=== PATIENT | female | born 1980 | race Caucasian/White ===

== ENCOUNTER 2018-01-30 17:59 | Emergency (ER) | payer MEDICAID, SELFPAY ==
[2018-01-30] VITALS (10 sets, daily range): BP systolic 116–130; BP diastolic 71–77; PULSE 86–100; RESP 14–24; TEMP 36.8–37; O2SAT 94–98
--- NOTE | 2018-01-30 18:25 | DI.RPTCT_ITS ---
SYMPTOMS/DIAGNOSIS: CHEST PAIN, SHORTNESS OF BREATH, EPIGASTRIC PAIN PA AND LATERAL CHEST: The heart is normal in size. The lungs are clear. The mediastinal structures and pleura appear intact. CONCLUSION: Normal chest. CT ANGIOGRAPHY, CHEST: CT angiography was performed with multi slice acquisition and multi planar and 3D reconstruction. CT angiography of the chest was performed with intravenous infusions of 100 cc of Omnipaque 350. There is no evidence of pulmonary embolic disease. No thoracic aortic aneurysm or dissection noted. Major branch vessels appear intact. The tracheobronchial tree appears intact. The lungs are clear. No pleural effusion. No mediastinal or hilar adenopathy. CONCLUSION: Negative CTA of the chest. ABDOMINAL AND PELVIC CT: CT examination of the abdomen and pelvis was performed following the CT angiogram of the chest. The study is compared with the previous abdominal CT of 12/30/2017. The patient has a history of pancreatic pseudocyst. This has decreased in size in comparison with the previous examination but still occupies a large portion of the portal region and measures up to about 12 cm in diameter on transaxial imaging. The liver is unremarkable in appearance. The gallbladder is CT normal and no biliary dilatation is seen. No new abnormality of the pancreas seen. Marked pancreatic body and tail calcification noted. The spleen is unremarkable. Kidneys and adrenals appear normal. Abdominal aorta is of normal diameter and no major vascular abnormality is seen. No significant abdominal wall hernia is seen. No significant abdominal or pelvic adenopathy seen. The appendix appears normal. No evidence of diverticulitis or bowel obstruction. There appears to be some degree of constipation. There is an IUD in place in the uterus. Ovaries are grossly unremarkable in appearance by CT criteria. No free fluid seen. CONCLUSION: No evidence of acute intraabdominal process. Presumed pancreatic pseudocyst again noted, slightly smaller in comparison with previous CT of . I would also note that prominent decreased hepatic attenuation consistent with hepatic steatosis noted on the previous examination is no longer present.
[2018-01-30] MEDS: Normal Saline 1,000 ML 1000 ML IV (18:57)
[2018-01-30 19:03] LABS: Lipase 652 U/L (73-393)
[2018-01-30 19:11] LABS: ALT 39 U/L (12-78); AST 34 U/L (15-37); Albumin 3.8 g/dL (3.4-5.0); Alkaline Phosphatase 146 U/L (46-116); Anion Gap 11.5 mmol/L (3-11); BUN 4 mg/dL (7-18); Bilirubin, Total 0.2 mg/dL (0.2-1.0); CO2 24.5 mmol/L (21.0-32.0); CREATININE 0.51 mg/dL (0.55-1.02); Calcium 8.7 mg/dL (8.5-10.1); Chloride 107 mmol/L (98-107); Glucose 96 mg/dL (70-100); Magnesium 1.7 mg/dL (1.8-2.4); Potassium 4.3 mmol/L (3.5-5.1); Sodium 143 mmol/L (136-145); Total Protein 7.4 g/dL (6.4-8.2)
[2018-01-30 19:21] LABS: Troponin I < 0.02 ng/mL (0.00-0.06)
[2018-01-30 19:24] LABS: Abs Immature Grans 0.07 k/cumm (0.0-0.09); Absolute Basophil Count 0.03 k/cumm (0.0-0.2); Absolute Eosinophil Count 0.12 k/cumm (0.0-0.7); Absolute Lymphocyte Count 2.57 k/cumm (1.2-3.4); Absolute Monocyte Count 0.69 k/cumm (0.11-0.7); Absolute Neutrophil Count 3.36 k/cumm (1.2-6.7); Basophils % 0.4; Eosinophils % 1.8; HCT 42.1 % (36.0-46.0); HGB 14.8 g/dL (12.0-15.5); Lymphocytes % 37.6; Mean Corp. HGB Concentration 35.2 g/dL (32.0-36.0); Mean Corpuscular Hemoglobin 33.2 pg (27.0-33.0); Mean Corpuscular Volume 94.4 fL (80-95); Mean Platelet Volume 10.9 fL (8.0-11.0); Monocytes % 10.1; Neutrophils % 49.1; Platelet Count 233 x1000/uL (130-400); RBC 4.46 m/cumm (4.00-5.20); RBC Distribution Width 13.3 % (11.7-14.6); White Blood Cell Count 6.84 k/cumm (4.4-10.8)
--- NOTE | 2018-01-30 19:36 | DI.VRAD_ITS ---
EXAM: XR Chest, 2 Views EXAM DATE/TIME: 01/30/2018 6:27 PM CLINICAL HISTORY: 37 years old, female; Signs and symptoms; Other: Chest pain TECHNIQUE: XR of the chest, 2 views. COMPARISON: CR - CHEST 2 VIEWS PA,LAT 2017-12-30 07:26 FINDINGS: Lungs: Unremarkable. No consolidation. Pleural space: Unremarkable. No pleural effusion. No pneumothorax. Heart/Mediastinum: Unremarkable. No cardiomegaly. Bones/joints: There is mild levoscoliotic curvature is present with the apex at T8. Minimal anterior marginal osteophytic spurring is present throughout the thoracic spine. IMPRESSION: 1. No acute pulmonary disease or acute thoracic findings are detected. 2. No significant interval change. Dictated and Authenticated by: Ga García MD. Ordering:MELISSA GAINES MD
[2018-01-30 19:38] LABS: D-Dimer 2217 ng/mlFEU (<500)
[2018-01-30] MEDS: Normal Saline Flush 10 ML SYR IVP (20:03)
[2018-01-30] MEDS: LORazepam 2 MG/ML VIAL 1 MG IVP (20:03)
[2018-01-30] MEDS: Omnipaque 350 MG/ML 100 ML BTL IV (20:11)
[2018-01-30 20:14] LABS: ETHANOL BLOOD 263.3 mg/dL (<3)
--- NOTE | 2018-01-30 21:47 | DI.VRAD_ITS ---
EXAM: CT Angiography Chest With Intravenous Contrast EXAM DATE/TIME: 01/30/2018 7:48 PM CLINICAL HISTORY: 37 years old, female; Signs and symptoms; Other: Pain, shortness of breath, epigastric pain TECHNIQUE: Axial computed tomographic angiography images of the chest with intravenous contrast using CT angiography protocol. All CT scans at this facility use at least one of these dose optimization techniques: automated exposure control; mA and/or kV adjustment per patient size (includes targeted exams where dose is matched to clinical indication); or iterative reconstruction. Coronal and sagittal reformatted images were created and reviewed. MIP reconstructed images were created and reviewed. CONTRAST: 100 ml of omnipaque 350 administered intravenously. COMPARISON: CT - ABD PELVIS WITH CONTRAST 2017-12-30 07:10 FINDINGS: Pulmonary arteries: Normal. No pulmonary emboli. Aorta: Normal. No aortic aneurysm. No aortic dissection. Lungs: Normal. No consolidation. No masses. Pleural space: Normal. No pneumothorax. No pleural effusion. Heart: Normal. No cardiomegaly. No pericardial effusion. Bones/joints: Unremarkable. No acute fracture. Soft tissues: Unremarkable. Lymph nodes: Unremarkable. No enlarged lymph nodes. IMPRESSION: 1. No identification of PE. 2. No acute pulmonary disease. EXAM: CT Abdomen and Pelvis With Intravenous Contrast EXAM DATE/TIME: 01/30/2018 7:48 PM CLINICAL HISTORY: 37 years old, female; Signs and symptoms; Other: Pain, shortness of breath, epigastric pain TECHNIQUE: Axial computed tomography images of the abdomen and pelvis with intravenous contrast. All CT scans at this facility use at least one of these dose optimization techniques: automated exposure control; mA and/or kV adjustment per patient size (includes targeted exams where dose is matched to clinical indication); or iterative reconstruction. Coronal and sagittal reformatted images were created and reviewed. CONTRAST: 100 ml of omnipaque 350 administered intravenously. COMPARISON: CT - ABD PELVIS WITH CONTRAST 2017-12-30 07:10 FINDINGS: Lower thorax: No acute findings. ABDOMEN: Liver: Normal. No mass. Gallbladder and bile ducts: Normal. No calcified stones. No ductal dilation. Pancreas: There is diffuse pancreatic atrophy with multiple calcifications again demonstrated throughout, thought indicative of chronic pancreatitis. An approximately 8.3 x 14.9 x 8.4 cm suspected pseudocyst is seen within the head region of the pancreas. This has slightly decreased in size. Spleen: Normal. No splenomegaly. Adrenals: Normal. No mass. Kidneys and ureters: Normal. No hydronephrosis. Stomach and bowel: Normal. No obstruction. No mucosal thickening. Appendix: No evidence of appendicitis. PELVIS: Bladder: Unremarkable as visualized. Reproductive: An IUD is again noted appearing to reside in satisfactory position within the uterine canal. The uterus is deviated to the left of midline in position; a normal variant finding. ABDOMEN and PELVIS: Intraperitoneal space: Normal. No free air. No significant fluid collection. Bones/joints: No acute fracture. No dislocation. Soft tissues: Unremarkable. Vasculature: Normal. No abdominal aortic aneurysm. Lymph nodes: Normal. No enlarged lymph nodes. IMPRESSION: 1. No acute findings are detected. 2. The suspected large pancreatic pseudocyst in the head region has slightly decreased in size. 3. No other significant interval change is seen to have occurred. Dictated and Authenticated by: Ga García MD. Ordering:MELISSA GAINES MD
[2018-01-30] MEDS: Ondansetron O.D.T. 4 MG TABEF PO ×2 (22:28→23:07)
--- NOTE | 2018-01-30 22:46 | ED.GENADUL_ITS ---
Disposition Clinical Impression: Pancreatitis, alcoholic, acute Disposition: HOME Condition: Improving Instructions: Pancreatitis (ED), Clear Liquid Diet (ED) Additional Instructions: Return immediately to the emergency department for new or worsening symptoms including severe nausea vomiting, severe pain or discomfort, severe symptoms of alcohol withdrawal, or inability to tolerate any p.o. intake. Otherwise please use clear liquid diet for the next 3 days and take medication as prescribed for symptomatic control. It is very important that you abstain from alcohol as this will worsen your condition. Prescriptions: ChlordiazePOXIDE [Librium] 50 mg PO Q8H PRN #12 cap PRN Reason: Ondansetron ODT [Zofran Odt] 4 mg PO Q8H PRN #12 tabef PRN Reason: Nausea Referrals: NONE,NONE [Primary Care Provider] - (Care management will help arrange a follow -up appointment in the next 2-3 days for reassessment.) Medical Decision Making - Lab Data Laboratory Tests 01/30/18 01/30/18 01/30/18 18:44 18:44 18:44 WBC 6.84 RBC 4.46 Hgb 14.8 Hct 42.1 MCV 94.4 MCH 33.2 H MCHC 35.2 RDW 13.3 Plt Count 233 MPV 10.9 Immature Gran % 1.0 Neutrophils % 49.1 Lymphocytes % 37.6 Monocytes % 10.1 Eosinophils % 1.8 Basophils % 0.4 Absolute Neutrophils 3.36 Absolute Lymphocytes 2.57 Absolute Monocytes 0.69 Absolute Eosinophils 0.12 Absolute Basophils 0.03 D-Dimer 2217 H Sodium 143 Potassium 4.3 Chloride 107 Carbon Dioxide 24.5 Anion Gap 11.5 H BUN 4 L Creatinine 0.51 L Estimated GFR/1.73 m2 >= 60.00 Glucose 96 Calcium 8.7 Magnesium 1.7 L Total Bilirubin 0.2 AST 34 ALT 39 Alkaline Phosphatase 146 H Troponin I < 0.02 Total Protein 7.4 Albumin 3.8 Lipase Ethyl Alcohol 01/30/18 01/30/18 18:44 18:44 WBC RBC Hgb Hct MCV MCH MCHC RDW Plt Count MPV Immature Gran % Neutrophils % Lymphocytes % Monocytes % Eosinophils % Basophils % Absolute Neutrophils Absolute Lymphocytes Absolute Monocytes Absolute Eosinophils Absolute Basophils D-Dimer Sodium Potassium Chloride Carbon Dioxide Anion Gap BUN Creatinine Estimated GFR/1.73 m2 Glucose Calcium Magnesium Total Bilirubin AST ALT Alkaline Phosphatase Troponin I Total Protein Albumin Lipase 652 H Ethyl Alcohol 263.3 Results reviewed for labs ordered during visit: Yes - Radiology Data Radiology results: report reviewed, image reviewed - Medical Decision Making Patient presenting to the emergency department for sudden onset chest pain. Patient does state history of DVTs in the past. Physical exam shows significant epigastric and left upper quadrant tenderness so I highly suspect more GI etiology but plan to draw labs including troponin, CBC CMP, lipase, and d-dimer. Patient does state drinking alcohol so alcohol level was added and given IV fluids pending results. After review of results that show a mild increase of lipase and elevated d- dimer. Patient was reassessed. Patient still states some shortness of breath and so plan to do CT PE protocol and abdomen and pelvis imaging. Pending imaging patient started to have severe anxiety about what may be going on with her health. After talking to her she was agreeable to receiving some Ativan in finishing the evaluation. After review of CT imaging that shows no acute findings and does show a slight reduction in size of patient's pseudocyst that she has located on the head of her pancreas patient reassessed. Patient states that she significantly feels better and has decrease in pain. EtOH result did come back and did show that patient was acutely intoxicated. Did discuss with patient pancreatitis caused by alcoholism which patient states that she drinks multiple beers daily. Patient states that she would prefer to go home but does have slight concern about stopping drinking alcohol. Did inform patient that we could attempt a fluid challenge after giving her some Zofran and as far as cessation of alcohol that I be willing to prescribe a limited prescription of Librium to help control any withdrawal symptoms that she might have. Patient was agreeable to this. Patient was able to tolerate multiple glasses of ice water and stated that she felt fine with no significant increase or worsening of pain or nausea. I feel that this is reassuring. Patient states that she does not have a primary care provider and I feel that it is very important that patient follows up with primary care in the next 2-3 days for reassessment and further refill of Librium if required for further withdrawals or outpatient detox. Patient was agreeable to seeing primary care provider in the next 2-3 days and states clear understanding to return for worsening symptoms. After discussion of diagnosis and plan of care with patient patient agreed and stated no further needs, questions, or concerns at this time. History of Present Illness - General Chief complaint: Chest Pain Stated complaint: VILMA Time Seen by Provider: 01/30/18 18:09 Source: patient, RN notes reviewed Mode of arrival: ambulatory Limitations: no limitations - History of Present Illness Initial comments: Patient reports 2 hours ago she began having significant and severe chest pain. Patient states this is mostly in the epigastrium and substernal. Patient does state that she had a couple beers prior to this occurring and had eaten just prior to that. Patient states that this started while she was at rest just watching TV. Patient denies any injury or trauma. Patient does state history of DVTs but denies any PE. Patient also does state spontaneous pneumothorax in the past. Onset/Timin -: hour(s) Location: chest Radiation: non-radiation Severity scale (1-10): 8 Quality: sharp Consistency: constant Improves with: none Worsens with: none Associated Symptoms: denies other symptoms Treatments Prior to Arrival: none - Related Data ChlordiazePOXIDE [Librium] 50 mg PO Q8H PRN #12 cap 01/30/18 Melatonin 1 tab PO PRN PRN 01/30/18 Ondansetron ODT [Zofran Odt] 4 mg PO Q8H PRN #12 tabef 01/30/18 Allergies Allergy/AdvReac Type Severity Reaction Status Date / Time amoxicillin Allergy Unverified 01/30/18 18:15 codeine Allergy Unverified 01/30/18 18:15 Review of Systems Constitutional: no symptoms reported. denies: chills, fever Respiratory: shortness of breath. denies: cough, stridor, wheezing Cardiovascular: chest pain. denies: palpitations, edema, syncope Gastrointestinal: abdominal pain, nausea. denies: vomiting, diarrhea, constipation, hematemesis Genitourinary: denies: dysuria Musculoskeletal: denies: back pain Neurological: denies: headache Past Medical History - Past Medical History Medical history: DVT Migraine headaches, pancreatitis, spontaneous pneumothorax Surgical history: other (LEEP, chest tube) LMP comments: other (Irregular, months ago. Patient has IUD) - Social History Smoking status: current everyday smoker Alcohol use: heavy, recent Drug use: none Living Situation: lives with family General Exam - General Limitations: no limitations General appearance: alert, in distress (Showing signs of obvious discomfort holding epigastrium) - Head Head exam: Present: atraumatic - ENT ENT exam: Present: normal orophraynx, mucous membranes moist - Respiratory Respiratory exam: Present: normal lung sounds bilaterally. Absent: respiratory distress, wheezes, rales, rhonchi, stridor, chest wall tenderness, decreased breath sounds - Cardiovascular Cardiovascular Exam: Present: regular rate, normal rhythm, normal heart sounds. Absent: systolic murmur, diastolic murmur, rubs, gallop, clicks - GI/Abdominal GI/Abdominal exam: Present: soft, tenderness (Significant tenderness to epigastrium and left upper quadrant), guarding (Voluntary with palpation of epigastrium), normal bowel sounds. Absent: rebound, rigid, organomegaly, mass, bruit, pulsatile mass, hernia - Extremities Exam Extremities exam: Present: normal capillary refill. Absent: pedal edema, calf tenderness - Back Exam Back exam: Absent: CVA tenderness (R), CVA tenderness (L) - Neurological Exam Neurological exam: Present: alert, altered, oriented X3 - Psychiatric Psychiatric exam: Present: agitated, anxious - Skin Skin exam: Present: warm, dry, normal color. Absent: cyanosis, diaphoretic, pallor, mottled Course Vital Signs - 24 hr 01/30/18 01/30/18 01/30/18 18:00 18:05 18:10 Temperature Pulse 91 H Respiratory Rate Blood Pressure 124/72 Pulse Oximetry 97 96 95 01/30/18 01/30/18 01/30/18 18:11 18:16 18:20 Temperature 37 C Pulse 92 H 95 H Respiratory 16 20 14 Rate Blood Pressure 124/72 116/71 Pulse Oximetry 98 97 96 01/30/18 01/30/18 01/30/18 18:34 18:40 19:20 Temperature Pulse Respiratory 24 Rate Blood Pressure Pulse Oximetry 96 94 L
[2018-01-30] MEDS: chlordiazePOXIDE 25 MG CAP 50 MG PO (23:07)
--- NOTE | 2018-01-31 08:03 | PDOC.ERCMPRO ---
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 Steinberg bromination equipment operator) f/u in 2-3 days for alcohol induced mild pancreatitis. Referral faxed to [facility] this am. Of note, this patient was referred to CM on 01/01 and CM had reached out to her then with no response back.
--- NOTE | 2018-01-31 08:04 | CMPROGNOTE_ITS ---
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 Steinberg production line operator) f/u in 2-3 days for alcohol induced mild pancreatitis. Referral faxed to [facility] this am. Of note, this patient was referred to CM on 01/01 and CM had reached out to her then with no response back.
== END 2018-01-30 23:15 | disposition home or self-care (01) ==
PROVIDERS: Nurse Practitioner Family; Emergency Provider Physician Assistant
DX: K85.20 Alcohol induced acute pancreatitis without necrosis or infection (principal)
CPT/HCPCS: 36415; 71275; 74177; 80053; 83690; 96360; 99285; 71046; 80320; 83735; 84484; 85025; 85379; 99284; J2060; J3490

== ENCOUNTER 2018-04-20 22:47 | Emergency (ER) | payer MEDICAID, SELFPAY ==
[2018-04-20 22:50] VITALS: BP 117/75; PULSE 84; RESP 16; TEMP 36.5; O2SAT 98
--- NOTE | 2018-04-20 23:07 | W.ED.GENAD ---
Discharge Plan Disposition Patient Disposition: HOME Condition: Good Discharge Details Chief Complaint: Burn Clinical Impression: First degree burn of right hand Primary Care Provider: NONE,NONE ED Provider: Karri Monteiro Meds and New Rx's Prescriptions: Continue melatonin 3 MG tablet 1 tab PO PRN PRNRF: 0 Discharge Instructions Instructions: Superficial Burn (ED) Additional Instructions: May use Motrin or Tylenol for pain. Burn should get better over a few days. There is no blistering/charred skin so superficial in nature. Return to ED if problems. Discharge Data Discharge Date/Time-TO BE ENTERED AT DEPARTURE: 04/20/18 23:24 Medical Decision Making I do not appreciate any charring, whiteness, blistering of the finger pad. It does not appear any more erythematous than the rest of her hand or pads. She complains of pain and burning here after removing pizza from the oven. This would only be a superficial burn as there is no blistering and burn occurred 1 hour ago. She is given a shot of Toradol for pain. She is instructed to use Motrin or Tylenol for pain. No specific treatment for superficial burn otherwise. Should heal without significant sequela. Return to ED for any problems. HPI General Mode of arrival: ambulatory. Date/Time Provider Initiated Documentation: 04/20/18 23:01. Limitations to Documentation: no limitations. Information obtained by: patient. HPI Narrative: Patient presents to ED stating she has a burn on her right ring finger. She apparently was trying to take a pizza out of the oven. She reports pain on the pad. She denies other injury. She presents for evaluation. Related Data Home Medications Medication Instructions Recorded Confirmed melatonin 1 tab PO PRN PRN 01/30/18 04/20/18 Allergies Allergy/AdvReac Type Severity Reaction Status Date / Time amoxicillin Allergy Unverified 01/30/18 18:15 codeine Allergy Unverified 01/30/18 18:15 General Stated Complaint: Burn JAMEEL: 4 Review of Systems Constitutional Denies weakness Musculoskeletal Denies numbness and Denies tingling Integumentary/Breasts Reports skin pain and Denies wounds Neurologic Denies numbness, Denies tingling and Denies weakness [facility] Medical History DVT (deep venous thrombosis) (Inactive) Pancreatitis (Inactive) Social History Smoking/Tobacco Use Status: Current every day Surgical History H/O chest tube placement (Inactive) Exam Const General: cooperative and comfortable Orientation: alert and oriented x3 Skin Other: Pain with palpation of the right finger pad but no blistering or significant erythema present. No charring or insensate regions Neuro General: alert, oriented x3, no focal motor deficits and CN's II-XI intact bilaterally Extrem Right upper extremity: hand Details: normal to inspection, normal capillary refill, neuromotor exam normal, neurosensory exam normal and normal ROM of fingers Course Vital Signs Temperature 97.7 F 04/20/18 22:50 Pulse 84 04/20/18 22:50 Respiratory Rate 16 04/20/18 22:50 Blood Pressure 117/75 04/20/18 22:50 Pulse Oximetry 98 04/20/18 22:50 Temperature 97.7 F 04/20/18 22:50 Temperature Source Skin 04/20/18 22:50 Pulse 84 04/20/18 22:50 Respiratory Rate 16 04/20/18 22:50 Respiratory Effort 04/20/18 22:53 Blood Pressure 117/75 04/20/18 22:50 Pulse Oximetry 98 04/20/18 22:50 Oxygen Delivery Method Room Air 04/20/18 22:50 Oxygen Flow Rate 0 04/20/18 22:50 Pain Level 2 04/20/18 22:57
--- NOTE | 2018-04-20 23:12 | ED.GENADUL_ITS ---
Discharge Plan Disposition Patient Disposition: HOME Condition: Good Discharge Details Chief Complaint: Burn Clinical Impression: First degree burn of right hand Primary Care Provider: NONE,NONE ED Provider: Karri Monteiro Meds and New Rx's Prescriptions: Continue melatonin 3 MG tablet 1 tab PO PRN PRNRF: 0 Discharge Instructions Instructions: Superficial Burn (ED) Additional Instructions: May use Motrin or Tylenol for pain. Burn should get better over a few days. There is no blistering/charred skin so superficial in nature. Return to ED if problems. Discharge Data Discharge Date/Time-TO BE ENTERED AT DEPARTURE: 04/20/18 23:24 Medical Decision Making I do not appreciate any charring, whiteness, blistering of the finger pad. It does not appear any more erythematous than the rest of her hand or pads. She complains of pain and burning here after removing pizza from the oven. This would only be a superficial burn as there is no blistering and burn occurred 1 hour ago. She is given a shot of Toradol for pain. She is instructed to use Motrin or Tylenol for pain. No specific treatment for superficial burn otherwise. Should heal without significant sequela. Return to ED for any problems. HPI General Mode of arrival: ambulatory . Date/Time Provider Initiated Documentation: 04/20/18 23:01 . Limitations to Documentation: no limitations . Information obtained by: patient . HPI Narrative: Patient presents to ED stating she has a burn on her right ring finger. She apparently was trying to take a pizza out of the oven. She reports pain on the pad. She denies other injury. She presents for evaluation. Related Data Home Medications Medication Instructions Recorded Confirmed melatonin 1 tab PO PRN PRN 01/30/18 04/20/18 Allergies Allergy/AdvReac Type Severity Reaction Status Date / Time amoxicillin Allergy Unverified 01/30/18 18:15 codeine Allergy Unverified 01/30/18 18:15 General Stated Complaint: Burn JAMEEL: 4 Review of Systems Constitutional Denies weakness Musculoskeletal Denies numbness and Denies tingling Integumentary/Breasts Reports skin pain and Denies wounds Neurologic Denies numbness, Denies tingling and Denies weakness [facility] Medical History DVT (deep venous thrombosis) (Inactive) Pancreatitis (Inactive) Social History Smoking/Tobacco Use Status: Current every day Surgical History H/O chest tube placement (Inactive) Exam Const General: cooperative and comfortable Orientation: alert and oriented x3 Skin Other: Pain with palpation of the right finger pad but no blistering or significant erythema present. No charring or insensate regions Neuro General: alert, oriented x3, no focal motor deficits and CN's II-XI intact bilaterally Extrem Right upper extremity: hand Details: normal to inspection, normal capillary refill, neuromotor exam normal, neurosensory exam normal and normal ROM of fingers Course Vital Signs Temperature 97.7 F 04/20/18 22:50 Pulse 84 04/20/18 22:50 Respiratory Rate 16 04/20/18 22:50 Blood Pressure 117/75 04/20/18 22:50 Pulse Oximetry 98 04/20/18 22:50 Temperature 97.7 F 04/20/18 22:50 Temperature Source Skin 04/20/18 22:50 Pulse 84 04/20/18 22:50 Respiratory Rate 16 04/20/18 22:50 Respiratory Effort 04/20/18 22:53 Blood Pressure 117/75 04/20/18 22:50 Pulse Oximetry 98 04/20/18 22:50 Oxygen Delivery Method Room Air 04/20/18 22:50 Oxygen Flow Rate 0 04/20/18 22:50 Pain Level 2 04/20/18 22:57
[2018-04-20] MEDS: Ketorolac 30 MG/ML VIAL IM (23:18)
[2018-04-20 23:26] VITALS: BP 117/75; PULSE 84; RESP 16; TEMP 36.5; O2SAT 98
== END 2018-04-20 23:24 | disposition home or self-care (01) ==
LOC: ER 23:43
PROVIDERS: Emergency Provider Emergency Medicine
DX: T23.121A Burn of first degree of single right finger (nail) except thumb, initial encounter (principal); T31.0 Burns involving less than 10% of body surface; X10.1XXA Contact with hot food, initial encounter
CPT/HCPCS: 96372; 99284; J1885

== ENCOUNTER 2018-08-24 14:43 | Outpatient (REF) | payer MEDICAID, SELFPAY | END 2018-08-24 15:03 | LOC: LBN 14:43 | PROVIDERS: Visit Provider Otolaryngology | DX: L02.01 Cutaneous abscess of face (principal) | CPT/HCPCS: 87070; 87205 ==

== ENCOUNTER 2018-09-09 12:48 | Emergency (ER) | payer MEDICAID, SELFPAY ==
[2018-09-09] VITALS (20 sets, daily range): BP systolic 116–155; BP diastolic 80–97; PULSE 83–115; RESP 12–23; TEMP 36.7–37.2; O2SAT 98–100
--- NOTE | 2018-09-09 12:44 | W.ED.GENAD ---
Discharge Plan Disposition Patient Disposition: HOME Condition: Stable Discharge Details Chief Complaint: Seizure Clinical Impression: Alcohol withdrawal, Contusion of hip, left Reason For Visit: VILMA Primary Care Provider: None,None ED Provider: Koby Walter Home Meds and New Rx's Prescriptions: New lorazepam 2 mg tablet See Rx Instructions .ROUTE .COMPLEX Qty: 21 RF: 0 No Action melatonin 3 MG tablet 1 tab PO PRN PRNRF: 0 Discharge Instructions Instructions: Lorazepam (By mouth), Alcohol Withdrawal (ED) Additional Instructions: if you relapse and start drinking do not take the lorazepam call the treatment centers for help with your alcohol addiction do not drive or swim/bathe for 6 months without a seizure or until your primary care provider clears you. You should follow up with them within 1-2 weeks Medical Decision Making 38 yo female who denies chronic medical problems, does have history of drinking heavily at least four 24oz beers a day and last drink 4 days ago. Today she felt weak and then reportedly collapsed and had shaking activity lasting a few minutes. She is currently HD stable with mild tachycardia in the 110's, does have tremors of the extremities, suspect alcohol withdrawal, will tx as such and also obtain head imaging given the seizure. She states she fell a few days ago and has lefthip pain, has pain over the lateral left hip with full rom of the hip, doubt fx but will xray to eval for this. pt's hr now the 90's and no longer having tremors. HAs mild pain in the hip. Awaiting imaging and labs imaging shows no acute findings, albs show hypoK and mag which are being repleted and also anion gap of 18 likely from either alcoholic ketosis vs seizure. Will recheck after IVF given. She remains HD stable with no recurrent seizures anion gap and hypoK resolved. She is hd stable. She would like to come off alcohol so will prescribe outaptient oral benzos until she can find treatment for her alcohol addiction. Return precautions given. Differential Diagnosis alcohol withdrawal, electrolyte abnormality Imaging Data Radiologic Study: Attestation: I personally reviewed and interpreted this imaging study as follows: Imaging: X-Ray Radiologist's impression: no acute findings Radiologic Study #2: Attestation: I personally reviewed and interpreted this imaging study as follows: Imaging: CT Scan Radiologist's impression: no acute findings Lab Data Lab results reviewed: Yes I reviewed the patient's lab results. ECG Data Attestation: I personally reviewed and interpreted this ECG (s) as follows: Prior ECG tracings: available for review Interpretation: sinus rhythm, rate of 95, pr 156, qtc 455, no acute st t wave ischmemic changes, does have artifact from her shaking/tremors HPI General Mode of arrival: EMS. Date/Time Provider Initiated Documentation: 09/09/18 12:58. Limitations to Documentation: no limitations. Information obtained by: patient. History of Present Illness 38 year old F presents to the emergency department with the chief complaint of seizure, Patient reports no radiation. Patient started experiencing this hour(s) (1) and it has been constant. No relieving factors improve symptom(s), No exacerbating factors reported . Patient notes other (left hip pain, shaky). Patient did receive the following treatments prior to arrival, none Related Data Home Medications Medication Instructions Recorded Confirmed melatonin 1 tab PO PRN PRN 01/30/18 09/09/18 lorazepam See Rx Instructions .ROUTE 09/09/18 .COMPLEX #21 tab Previous Rx's Medication Instructions Recorded lorazepam See Rx Instructions .ROUTE 09/09/18 .COMPLEX #21 tab Allergies Allergy/AdvReac Type Severity Reaction Status Date / Time amoxicillin Allergy Unverified 09/09/18 14:34 codeine Allergy Unverified 09/09/18 14:34 General JAMEEL: 4 Review of Systems Review of Systems All systems reviewed & are unremarkable except as noted in HPI and below Constitutional Denies chills and Denies fever(s) Cardiovascular Denies chest pain and Denies dyspnea Respiratory Denies cough and Denies dyspnea Gastrointestinal Denies abdominal pain Genitourinary Denies dysuria Musculoskeletal Denies joint swelling [facility] Medical History DVT (deep venous thrombosis) (Inactive) Pancreatitis (Inactive) Surgical History H/O chest tube placement (Inactive) Social History Smoking/Tobacco Use Status: Current every day Tobacco Type: cigarettes Tobacco: How many years used: 21 Alcohol Intake: current Alcohol Intake frequency: 3 or more drinks per day Alcohol type: beer Drug use: Daily Substance use type: marijuana Do you feel safe at home: Yes Do you feel safe in your relationship?: Yes Exam Const General: anxious Orientation: alert HENMT Head: normal to inspection Ears: external ears normal General nose exam: external nose normal Mouth: moist mucous membranes Eyes General: appearance normal, both eyes and all related structures Neck Neck: normal visual inspection Resp Effort & Inspection: normal respiratory effort and able to speak in complete sentences Cardio Rate: tachycardic Skin General skin exam: no rashes or lesions noted Neuro General: alert and oriented x3 Extrem General: normal to inspection Psych Mental Status: mental status grossly normal
[2018-09-09 13:03] LABS: Abs Immature Grans 0.02 k/cumm (0.0-0.09); Absolute Basophil Count 0.01 k/cumm (0.0-0.2); Absolute Eosinophil Count 0.01 k/cumm (0.0-0.7); Absolute Lymphocyte Count 0.73 k/cumm (1.2-3.4); Absolute Monocyte Count 0.49 k/cumm (0.11-0.7); Absolute Neutrophil Count 3.89 k/cumm (1.2-6.7); Basophils % 0.2; Eosinophils % 0.2; HCT 41.5 % (36.0-46.0); HGB 14.7 g/dL (12.0-15.5); Immature Grans % 0.4; Lymphocytes % 14.2; Mean Corp. HGB Concentration 35.4 g/dL (32.0-36.0); Mean Corpuscular Volume 90.4 fL (80-95); Mean Platelet Volume 10.4 fL (8.0-11.0); Monocytes % 9.5; Neutrophils % 75.5; Platelet Count 109 x1000/uL (130-400); RBC 4.59 m/cumm (4.00-5.20); White Blood Cell Count 5.15 k/cumm (4.4-10.8)
--- NOTE | 2018-09-09 13:04 | DI.RAD_ITS ---
SYMPTOM/DIAGNOSIS: PAIN, S/P FALL PELVIS AND LEFT HIP: There is overlying artifact from the patient's clothing. No fracture or dislocation is seen. An IUD is incidentally noted. IMPRESSION: Negative pelvis.
--- NOTE | 2018-09-09 13:04 | DI.CT_ITS ---
SYMPTOM/DIAGNOSIS: SEIZURE, FELL, HIT HEAD NONCONTRAST HEAD CT: Comparison is made with 06/15/17. No intracranial hemorrhage or skull fracture is seen. The ventricles are normal in size. There is minimal ethmoid sinus mucosal thickening. The mastoid air cells appear clear. IMPRESSION: Negative head CT.
--- NOTE | 2018-09-09 13:11 | ED.GENADUL_ITS ---
Discharge Plan Disposition Patient Disposition: HOME Condition: Stable Discharge Details Chief Complaint: Seizure Clinical Impression: Alcohol withdrawal, Contusion of hip, left Reason For Visit: VILMA Primary Care Provider: None,None ED Provider: Koby Walter Home Meds and New Rx's Prescriptions: New lorazepam 2 mg tablet See Rx Instructions .ROUTE .COMPLEX Qty: 21 RF: 0 No Action melatonin 3 MG tablet 1 tab PO PRN PRNRF: 0 Discharge Instructions Instructions: Lorazepam (By mouth), Alcohol Withdrawal (ED) Additional Instructions: if you relapse and start drinking do not take the lorazepam call the treatment centers for help with your alcohol addiction do not drive or swim/bathe for 6 months without a seizure or until your primary care provider clears you. You should follow up with them within 1-2 weeks Medical Decision Making 38 yo female who denies chronic medical problems, does have history of drinking heavily at least four 24oz beers a day and last drink 4 days ago. Today she felt weak and then reportedly collapsed and had shaking activity lasting a few minutes. She is currently HD stable with mild tachycardia in the 110's, does have tremors of the extremities, suspect alcohol withdrawal, will tx as such and also obtain head imaging given the seizure. She states she fell a few days ago and has lefthip pain, has pain over the lateral left hip with full rom of the hip, doubt fx but will xray to eval for this. pt's hr now the 90's and no longer having tremors. HAs mild pain in the hip. Awaiting imaging and labs imaging shows no acute findings, albs show hypoK and mag which are being repleted and also anion gap of 18 likely from either alcoholic ketosis vs seizure. Will recheck after IVF given. She remains HD stable with no recurrent seizures anion gap and hypoK resolved. She is hd stable. She would like to come off alcohol so will prescribe outaptient oral benzos until she can find treatment for her alcohol addiction. Return precautions given. Differential Diagnosis alcohol withdrawal, electrolyte abnormality Imaging Data Radiologic Study: Attestation: I personally reviewed and interpreted this imaging study as follows: Imaging: X-Ray Radiologist's impression: no acute findings Radiologic Study #2: Attestation: I personally reviewed and interpreted this imaging study as follows: Imaging: CT Scan Radiologist's impression: no acute findings Lab Data Lab results reviewed: Yes I reviewed the patient's lab results. ECG Data Attestation: I personally reviewed and interpreted this ECG (s) as follows: Prior ECG tracings: available for review Interpretation: sinus rhythm, rate of 95, pr 156, qtc 455, no acute st t wave ischmemic changes, does have artifact from her shaking/tremors HPI General Mode of arrival: EMS . Date/Time Provider Initiated Documentation: 09/09/18 12:58 . Limitations to Documentation: no limitations . Information obtained by: patient . History of Present Illness 38 year old F presents to the emergency department with the chief complaint of seizure, Patient reports no radiation. Patient started experiencing this hour(s) (1) and it has been constant. No relieving factors improve symptom(s), No exacerbating factors reported . Patient notes other (left hip pain, shaky). Patient did receive the following treatments prior to arrival, none Related Data Home Medications Medication Instructions Recorded Confirmed melatonin 1 tab PO PRN PRN 01/30/18 09/09/18 lorazepam See Rx Instructions .ROUTE 09/09/18 .COMPLEX #21 tab Previous Rx's Medication Instructions Recorded lorazepam See Rx Instructions .ROUTE 09/09/18 .COMPLEX #21 tab Allergies Allergy/AdvReac Type Severity Reaction Status Date / Time amoxicillin Allergy Unverified 09/09/18 14:34 codeine Allergy Unverified 09/09/18 14:34 General JAMEEL: 4 Review of Systems Review of Systems All systems reviewed & are unremarkable except as noted in HPI and below Constitutional Denies chills and Denies fever(s) Cardiovascular Denies chest pain and Denies dyspnea Respiratory Denies cough and Denies dyspnea Gastrointestinal Denies abdominal pain Genitourinary Denies dysuria Musculoskeletal Denies joint swelling [facility] Medical History DVT (deep venous thrombosis) (Inactive) Pancreatitis (Inactive) Surgical History H/O chest tube placement (Inactive) Social History Smoking/Tobacco Use Status: Current every day Tobacco Type: cigarettes Tobacco: How many years used: 21 Alcohol Intake: current Alcohol Intake frequency: 3 or more drinks per day Alcohol type: beer Drug use: Daily Substance use type: marijuana Do you feel safe at home: Yes Do you feel safe in your relationship?: Yes Exam Const General: anxious Orientation: alert HENMT Head: normal to inspection Ears: external ears normal General nose exam: external nose normal Mouth: moist mucous membranes Eyes General: appearance normal, both eyes and all related structures Neck Neck: normal visual inspection Resp Effort & Inspection: normal respiratory effort and able to speak in complete sentences Cardio Rate: tachycardic Skin General skin exam: no rashes or lesions noted Neuro General: alert and oriented x3 Extrem General: normal to inspection Psych Mental Status: mental status grossly normal
[2018-09-09] MEDS: LORazepam 2 MG/ML VIAL IVP (13:14)
[2018-09-09 13:16] LABS: INR 1.2 (0.9-1.1); Prothrombin Time 11.7 sec (9.3-11.0)
[2018-09-09] MEDS: Normal Saline 1,000 ML 1000 ML IV ×2 (13:17→14:34)
[2018-09-09 13:18] LABS: ALT 83 U/L (12-78); AST 152 U/L (15-37); Albumin 3.5 g/dL (3.4-5.0); Alkaline Phosphatase 298 U/L (46-116); Anion Gap 18.2 mmol/L (3-11); BUN 5 mg/dL (7-18); Bilirubin, Direct 0.44 mg/dL (0.00-0.20); Bilirubin, Total 1.3 mg/dL (0.2-1.0); CO2 23.8 mmol/L (21.0-32.0); CREATININE 0.88 mg/dL (0.55-1.02); Calcium 9.2 mg/dL (8.5-10.1); Chloride 89 mmol/L (98-107); Glucose 181 mg/dL (70-100); Lipase 112 U/L (73-393); Magnesium 1.4 mg/dL (1.8-2.4); Sodium 131 mmol/L (136-145); Total Protein 7.6 g/dL (6.4-8.2)
[2018-09-09] MEDS: Folic Acid 1 MG TAB PO (13:31)
[2018-09-09] MEDS: THIAMINE 100 MG in Normal Saline 100 ML 200 MG IVPB (13:31)
[2018-09-09] MEDS: Acetaminophen 500 MG TAB 1000 MG PO (13:31)
[2018-09-09 13:32] LABS: Potassium 2.8 mmol/L (3.5-5.1); Troponin I < 0.02 ng/mL (0.00-0.06)
[2018-09-09 13:46] LABS: ETHANOL BLOOD < 3.0 mg/dL (<3)
[2018-09-09 13:47] LABS: HCG Qual (Serum) Negative
[2018-09-09] MEDS: Potassium Chloride 20 MEQ TABCR 40 MEQ PO (14:12)
[2018-09-09] MEDS: MAGNESIUM SULFATE 1 GM/100 ML BAG IVPB (14:13)
[2018-09-09] MEDS: POTASSIUM CHLORIDE 10 MEQ/100 ML BAG 100 MEQ IVPB (14:13)
--- NOTE | 2018-09-09 14:35 | DI.VRAD_ITS ---
EXAM: CT Head Without Contrast EXAM DATE/TIME: 09/09/2018 1:05 PM CLINICAL HISTORY: 38 years old, female; Signs and symptoms; Other: Seizure TECHNIQUE: Imaging protocol: Axial computed tomography images of the head/brain without contrast. Coronal and sagittal reformatted images were created and reviewed. Radiation optimization: All CT scans at this facility use at least one of these dose optimization techniques: automated exposure control; mA and/or kV adjustment per patient size (includes targeted exams where dose is matched to clinical indication); or iterative reconstruction. COMPARISON: CT HEAD WITHOUT CONTRAST 06/15/2017 8:59 PM FINDINGS: Brain: Unremarkable. No hemorrhage. No evidence white matter disease, mass or edema. No midline shift. Ventricles: Unremarkable. No hydrocephalus. Bones/joints: Unremarkable. No fracture. Sinuses: Partial opacification of a single right ethmoid air cell. Mastoid air cells: Unremarkable as visualized. No mastoid effusion. Soft tissues: Unremarkable. IMPRESSION: Negative unenhanced CT head exam. Dictated and Authenticated by: Rossi Alanis MD. Ordering:CHENCHO Whalen MD
--- NOTE | 2018-09-09 14:36 | DI.VRAD_ITS ---
EXAM: XR Left Hip with Pelvis when Performed, 2 or 3 Views EXAM DATE/TIME: 09/09/2018 1:05 PM CLINICAL HISTORY: 38 years old, female; Signs and symptoms; Other: Pain S/P fall TECHNIQUE: Imaging protocol: XR Left hip with pelvis when performed, 2 or 3 views COMPARISON: CT CHEST FOR PE, ABD PELVIS W 01/30/2018 8:12 PM FINDINGS: Bones/joints: No fracture or dislocation. Soft tissues: Superficial soft tissues are unremarkable. Other findings: IUD in the pelvis. Bilateral pelvic vascular phleboliths. IMPRESSION: No fracture or dislocation. Dictated and Authenticated by: Rossi Alanis MD. Ordering:CHENCHO Whalen MD
[2018-09-09 15:53] LABS: Anion Gap 9.8 mmol/L (3-11); BUN 4 mg/dL (7-18); CO2 26.2 mmol/L (21.0-32.0); Chloride 98 mmol/L (98-107); Glucose 126 mg/dL (70-100); Sodium 134 mmol/L (136-145)
[2018-09-09 15:58] LABS: Potassium 4.2 mmol/L (3.5-5.1)
--- NOTE | 2018-09-10 08:12 | PDOC.ERCMPRO ---
Care Management Progress Note 09/10-Dr. 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 Needs to establish. No ED f/u needed. Referral faxed to [facility] this am.
--- NOTE | 2018-09-10 08:13 | CMPROGNOTE_ITS ---
Care Management Progress Note 09/10-Dr. 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 Needs to establish. No ED f/u needed. Referral faxed to [facility] this am.
== END 2018-09-09 16:14 | disposition home or self-care (01) ==
PROVIDERS: Emergency Provider Emergency Medicine
DX: F10.21 Alcohol dependence, in remission (principal); S70.02XA Contusion of left hip, initial encounter; W19.XXXA Unspecified fall, initial encounter; F17.210 Nicotine dependence, cigarettes, uncomplicated
CPT/HCPCS: 36415; 80048; 80053; 80076; 80307; 81025; 83690; 93005; 96361; 96365; 96367; 96375; 99285; 70450; 73502; 80320; 83735; 84484; 84703; 85025; 85610; 85730; 93010; 99284; J2060; J3475; J3480

== ENCOUNTER 2018-09-16 10:06 | Inpatient (IN) | payer MEDICAID, SELFPAY ==
[2018-09-16 10:05] VITALS: O2SAT 100
[2018-09-16 10:06] VITALS: BP 125/79; PULSE 89; O2SAT 100
[2018-09-16 10:11] VITALS: BP 125/79; PULSE 96; RESP 20; TEMP 36.7; O2SAT 100
--- NOTE | 2018-09-16 10:14 | DI.CT_ITS ---
SYMPTOMS/DIAGNOSIS: CHEST PAIN, SHORTNESS OF BREATH, EPIGASTRIC AND RUQ ABD PAIN, ? PE/GB CT ANGIOGRAPHY CHEST: CT angiography was performed with multi slice acquisition and multi planar and 3D reconstruction. CT Angiography of the chest was performed with a bolus infusion of 100 cc's of Omnipaque 350. The thoracic aorta is of normal diameter with no evidence of dissection. No evidence of pulmonary embolic disease. No mediastinal or hilar adenopathy. No pleural effusion or pneumothorax. The lungs are generally clear and the tracheobronchial tree appears intact. ABDOMINAL AND PELVIC CT: CT examination of the abdomen and pelvis was performed following the thoracic CTA. The abdominal aorta and major branch vessels appear normal. There is hepatic steatosis. The liver is unremarkable in appearance. The pancreas is atrophic and shows multiple calcifications consistent with a severe chronic pancreatitis. Previously described presumed pancreatic pseudocyst noted on examination of 12/30/17 is again noted and has decreased somewhat in size in comparison with the previous examination. Moderate free intraperitoneal fluid is present which was not present on the previous examination. The adrenals and kidneys appear normal. No evidence of bowel obstruction. IUD noted in place in the uterus. CONCLUSION: 1. No evidence of pulmonary embolic disease. 2. Decreased size of presumed pancreatic pseudocyst which now measures roughly 8 x 4 cm in diameter on transaxial imaging. 3. Interval development of intraperitoneal fluid. 4. No evidence of bowel obstruction. Question of diffuse colonic wall thickening, colitis not excluded, please correlate clinically.
--- NOTE | 2018-09-16 10:17 | W.ED.GENAD ---
Discharge Plan Disposition Patient Disposition: [facility] INPATIENT Condition: Stable Discharge Details Chief Complaint: Abd Prob Clinical Impression: Acute pancreatitis, Pancreatic pseudocyst, UTI (urinary tract infection) Primary Care Provider: None,None ED Provider: Jaime Goldberg Home Meds and New Rx's Prescriptions: No Action melatonin 3 MG tablet 1 tab PO PRN PRNRF: 0 Medical Decision Making This is a 38-year-old female with a past medical history of hemorrhagic pancreatitis, collapsed lung, DVT secondary to hospitalization, chronic alcohol abuse who presents today for evaluation of right upper quadrant and epigastric abdominal pain with radiation to the chest. She denies any tearing sensation. Pulses are equal and symmetric throughout with brisk capillary refill. She denies any vomiting, but does admit to some mild diarrhea. He has been 7 days since her last drink. Physical exam demonstrates notably reproducible right upper quadrant tenderness. She states that it feels like her previous episodes of severe pancreatitis. We will rehydrate, get a CT scan of the chest abdomen and pelvis, rule out PE, rehydrate and reassess. 11:14 AM Laboratory workup shows elevated lactate at 2.3, in addition to an elevated lipase of 821 suggesting the previously suspected pancreatitis. Still pending CT scan results. Troponin and EKG are benign. Urinalysis does show evidence of urinary tract infection with moderate leuk esterase, elevated WBC count, and atypical odor. Patient does have an amoxicillin allergy which causes a very mild rash, however she has tolerated Keflex before in the past without complication. We will give Rocephin for treatment of the UTI. 2:[address] scan has returned and demonstrates evidence of a large pseudocyst, not significantly increased from previous scans. There is also evidence of mild colitis on the CT scan. Patient does have some diarrhea, we will test for C. difficile. However continue to exam demonstrates epigastric tenderness and not lower abdominal tenderness. Feels signs and symptoms are still most consistent with acute pancreatitis in conjunction with a large pseudocyst. We did contact Dr. Mohan discussed the case with her, she requested referral to [facility]. We did contact [facility] and I discussed the case with Dr. Pat and after he personally reviewed the images, labs and patient's clinical presentation through our discussion he recommended medical management of the pancreatitis, and no acute surgical management of the pseudocyst. They recommend outpatient follow-up for pseudocyst drainage after resolution of the pancreatitis. I did contact Dr. Oneil, and discussed the case with him. He agrees with the plan. He will accept the patient for admission for further medical management. I have extensively reviewed the treatment plan and discharge instructions with the patient. I have addressed all patient concerns at this time. The patient was made aware of what symptoms to monitor for that would warrant a return to the emergency department. Discussed the plan with the patient, they demonstrate verbal understanding and agreement with our assessment and plan at this time. EKG 10: 18 Rate 98, intervals normal, sinus rhythm, no significant ST elevations or depressions, no T wave inversions, no Q waves. Normal EKG FINDINGS: VASCULATURE: Aorta: No aortic aneurysm. No aortic dissection. Celiac trunk and mesenteric arteries: No occlusion or significant stenosis. Renal arteries: No occlusion or significant stenosis. Right iliac arteries: No occlusion or significant stenosis. Left iliac arteries: No occlusion or significant stenosis. ABDOMEN: Liver: Hepatic steatosis Gallbladder and bile ducts: Unremarkable. No calcified stones. No ductal dilation. Pancreas: Calcifications in a markedly atrophied pancreas consistent with chronic pancreatitis Spleen: Unremarkable. No splenomegaly. Adrenals: Unremarkable. No mass. Kidneys and ureters: Unremarkable. No solid mass. No hydronephrosis. Stomach and bowel: Low-attenuation bowel wall thickening is seen throughout the colon consistent with colitis. Differential diagnosis includes infectious and inflammatory etiologies.. Appendix: Normal appendix Retroperitoneal space: Again noted is the large fluid collection in the retroperitoneum. It measures 9.8 x 5.7 cm and is most consistent with pancreatic pseudocyst. PELVIS: Bladder: Unremarkable. No mass. Reproductive: IUD in the uterus ABDOMEN and PELVIS: Intraperitoneal space: Moderate ascites in the abdomen. Mild ascites in the pelvis Impression. Bones/joints: No acute fracture. No dislocation. Soft tissues: Unremarkable. Lymph nodes: Unremarkable. No enlarged lymph nodes. IMPRESSION: 1. Low-attenuation bowel wall thickening is seen throughout the colon consistent with colitis. Differential diagnosis includes infectious and inflammatory etiologies.. 2. Again noted is the large fluid collection in the retroperitoneum. It measures 9.8 x 5.7 cm and is most consistent with pancreatic pseudocyst. Thank you for allowing us to participate in the care of your patient. Dictated and Authenticated by: Gaurav Shepard MD 09/16/2018 12:15 PM Eastern Time ([place] & [place]) HPI General Date/Time Provider Initiated Documentation: 09/16/18 10:07. HPI Narrative: This is a 38-year-old female with a past medical history of common bile duct pathology, DVTs, hemorrhagic pancreatitis, collapsed lung, and notable chronic alcohol abuse, who presents today for evaluation of right upper quadrant epigastric and pleuritic pain. Pain started at 2 AM yesterday, is gradually worsened, and has become severe. Is notably sharp, it is associated with nausea, but no vomiting. She does have some diarrhea, but denies any blood in the stool. She denies any dysuria hematuria or increase in urinary frequency. She states the symptoms feel similar to when she has had severe pancreatitis in the past. She denies any fever or chills. She denies any relieving factors. She denies any recent trauma. Of note she has not drunk alcohol for the last 6-7 days. She has no other complaints at this time. No other modifying factors. She denies any IV illicit drug use, or recent pertinent family history. She denies any significant previous abdominal surgeries aside for . She is not on blood thinners for the DVT as they did occur from an instigated episode with her pancreatitis. Related Data Home Medications Medication Instructions Recorded Confirmed melatonin 1 tab PO PRN PRN 01/30/18 09/16/18 Allergies Allergy/AdvReac Type Severity Reaction Status Date / Time amoxicillin Allergy Unverified 09/16/18 10:37 codeine Allergy Unverified 09/16/18 10:37 General Stated Complaint: Abd Prob JAMEEL: 3 Review of Systems Review of Systems All systems reviewed & are unremarkable except as noted in HPI and below [facility] Social History Smoking/Tobacco Use Status: Current every day Tobacco Type: cigarettes Tobacco: How many years used: 21 Alcohol Intake: current Alcohol Intake frequency: 3 or more drinks per day Alcohol type: beer Drug use: Daily Substance use type: marijuana Details: has not drank in one week Do you feel safe at home: Yes Do you feel safe in your relationship?: Yes Exam Narrative Exam Narrative: 1.Const: Well-nourished, Well-developed, appearing stated age 2.Eyes: PERRL, no conjunctival injection, and symmetrical lids. 3.ENT: Atraumatic external nose and ears. Moist MM. Neck: Symmetric, trachea midline, No thyromegaly. 4.CVS: +S1/S2, No murmurs or gallops. Peripheral pulses 2+ and equal in all extremities. Brisk capillary refill in all extremities. 5.RESP: Unlabored respiratory effort. Clear to auscultation bilaterally. No wheezes rales or rhonchi 6.GI: Soft, voluntary guarding, notable reproducible epigastric and right upper quadrant abdominal tenderness. No significant CVA tenderness. No pain at McBurney's point, no organomegaly. 7.MSK: Normocephalic/Atraumatic, Extremities w/o deformity or ttp No cyanosis or clubbing, Normal movement of all extremities 8.Skin: Warm, Dry. No rashes or lesions. 9.Neuro: physical therapy assistant II-XII grossly intact. Sensation grossly intact, no focal neurologic deficits. 10.Psych: (AAO) x3. Appropriate mood and affect Course Vital Signs Temperature 36.7 C 09/16/18 10:11 Pulse 96 H 09/16/18 10:11 Respiratory Rate 20 09/16/18 10:11 Blood Pressure 125/79 09/16/18 10:11 Pulse Oximetry 100 09/16/18 10:11 Temperature 36.7 C 09/16/18 10:11 Temperature Source Temporal Artery Scan 09/16/18 10:11 Pulse 96 H 09/16/18 10:11 Respiratory Rate 20 09/16/18 10:11 Blood Pressure 125/79 09/16/18 10:11 Blood Pressure Position Sitting 09/16/18 10:11 Pulse Oximetry 100 09/16/18 10:11 Oxygen Delivery Method Room Air 09/16/18 10:11 Oxygen Flow Rate 0 09/16/18 10:11 Pain Level 10 09/16/18 10:11
--- NOTE | 2018-09-16 10:24 | ED.GENADUL_ITS ---
Discharge Plan Disposition Patient Disposition: [facility] INPATIENT Condition: Stable Discharge Details Chief Complaint: Abd Prob Clinical Impression: Acute pancreatitis, Pancreatic pseudocyst, UTI (urinary tract infection) Primary Care Provider: None,None ED Provider: Jaime Goldberg Home Meds and New Rx's Prescriptions: No Action melatonin 3 MG tablet 1 tab PO PRN PRNRF: 0 Medical Decision Making This is a 38-year-old female with a past medical history of hemorrhagic pancreatitis, collapsed lung, DVT secondary to hospitalization, chronic alcohol abuse who presents today for evaluation of right upper quadrant and epigastric abdominal pain with radiation to the chest. She denies any tearing sensation. Pulses are equal and symmetric throughout with brisk ca pillary refill. She denies any vomiting, but does admit to some mild diarrhea. He has been 7 days since her last drink. Physical exam demonstrates notably reproducible right upper quadrant tenderness. She states that it feels like her previous episodes of severe pancreatitis. We will rehydrate, get a CT scan of the chest abdomen and pelvis, rule out PE, rehydrate and reassess. 11:14 AM Laboratory workup shows elevated lactate at 2.3, in addition to an elevated lipase of 821 suggesting the previously suspected pancreatitis. Still pending CT scan results. Troponin and EKG are benign. Urinalysis does show evidence of urinary tract infection with moderate leuk esterase, elevated WBC count, and atypical odor. Patient does have an amoxicillin allergy which causes a very mild rash, however she has tolerated Keflex before in the past without complication. We will give Rocephin for treatment of the UTI. 2:[address] scan has returned and demonstrates evidence of a large pseudocyst, not significantly increased from previous scans. There is also evidence of mild colitis on the CT scan. Patient does have some diarrhea, we will test for C. difficile. However continue to exam demonstrates epigastric tenderness and not lower abdominal tenderness. Feels signs and symptoms are still most consistent with acute pancreatitis in conjunction with a large pseudocyst. We did contact Dr. Mohan discussed the case with her, she requested referral to [facility]. We did contact [facility] and I discussed the case with Dr. Pat and after he personally reviewed the images, labs and patient's clinical presentation through our discussion he recommended medical management of the pancreatitis, and no acute surgical management of the pseudocyst. They recommend outpatient follow- up for pseudocyst drainage after resolution of the pancreatitis. I did contact Dr. Oneil, and discussed the case with him. He agrees with the plan. He will accept the patient for admission for further medical management. I have extensively reviewed the treatment plan and discharge instructions with the patient. I have addressed all patient concerns at this time. The patient was made aware of what symptoms to monitor for that would warrant a return to the emergency department. Discussed the plan with the patient, they demonstrate verbal understanding and agreement with our assessment and plan at this time. EKG 10: 18 Rate 98, intervals normal, sinus rhythm, no significant ST elevations or depressions, no T wave inversions, no Q waves. Normal EKG FINDINGS: VASCULATURE: Aorta: No aortic aneurysm. No aortic dissection. Celiac trunk and mesenteric arteries: No occlusion or significant stenosis. Renal arteries: No occlusion or significant stenosis. Right iliac arteries: No occlusion or significant stenosis. Left iliac arteries: No occlusion or significant stenosis. ABDOMEN: Liver: Hepatic steatosis Gallbladder and bile ducts: Unremarkable. No calcified stones. No ductal dilation. Pancreas: Calcifications in a markedly atrophied pancreas consistent with chronic pancreatitis Spleen: Unremarkable. No splenomegaly. Adrenals: Unremarkable. No mass. Kidneys and ureters: Unremarkable. No solid mass. No hydronephrosis. Stomach and bowel: Low-attenuation bowel wall thickening is seen throughout the colon consistent with colitis. Differential diagnosis includes infectious and inflammatory etiologies.. Appendix: Normal appendix Retroperitoneal space: Again noted is the large fluid collection in the retroperitoneum. It measures 9.8 x 5.7 cm and is most consistent with pancreatic pseudocyst. PELVIS: Bladder: Unremarkable. No mass. Reproductive: IUD in the uterus ABDOMEN and PELVIS: Intraperitoneal space: Moderate ascites in the abdomen. Mild ascites in the pelvis Impression. Bones/joints: No acute fracture. No dislocation. Soft tissues: Unremarkable. Lymph nodes: Unremarkable. No enlarged lymph nodes. IMPRESSION: 1. Low-attenuation bowel wall thickening is seen throughout the colon consistent with colitis. Differential diagnosis includes infectious and inflammatory etiologies.. 2. Again noted is the large fluid collection in the retroperitoneum. It measures 9.8 x 5.7 cm and is most consistent with pancreatic pseudocyst. Thank you for allowing us to participate in the care of your patient. Dictated and Authenticated by: Gaurav Shepard MD 09/16/2018 12:15 PM Eastern Time ([place] & [place]) HPI General Date/Time Provider Initiated Documentation: 09/16/18 10:07 . HPI Narrative: This is a 38-year-old female with a past medical history of common bile duct pathology, DVTs, hemorrhagic pancreatitis, collapsed lung, and notable chronic alcohol abuse, who presents today for evaluation of right upper quadrant epigastric and pleuritic pain. Pain started at 2 AM yesterday, is gradually worsened, and has become severe. Is notably sharp, it is associated with nausea, but no vomiting. She does have some diarrhea, but denies any blood in the stool. She denies any dysuria hematuria or increase in urinary frequency. She states the symptoms feel similar to when she has had severe pancreatitis in the past. She denies any fever or chills. She denies any relieving factors. She denies any recent trauma. Of note she has not drunk alcohol for the last 6- 7 days. She has no other complaints at this time. No other modifying factors. She denies any IV illicit drug use, or recent pertinent family history. She denies any significant previous abdominal surgeries aside for . She is not on blood thinners for the DVT as they did occur from an instigated episode with her pancreatitis. Related Data Home Medications Medication Instructions Recorded Confirmed melatonin 1 tab PO PRN PRN 01/30/18 09/16/18 Allergies Allergy/AdvReac Type Severity Reaction Status Date / Time amoxicillin Allergy Unverified 09/16/18 10:37 codeine Allergy Unverified 09/16/18 10:37 General Stated Complaint: Abd Prob JAMEEL: 3 Review of Systems Review of Systems All systems reviewed & are unremarkable except as noted in HPI and below [facility] Social History Smoking/Tobacco Use Status: Current every day Tobacco Type: cigarettes Tobacco: How many years used: 21 Alcohol Intake: current Alcohol Intake frequency: 3 or more drinks per day Alcohol type: beer Drug use: Daily Substance use type: marijuana Details: has not drank in one week Do you feel safe at home: Yes Do you feel safe in your relationship?: Yes Exam Narrative Exam Narrative: 1.Const: Well-nourished, Well-developed, appearing stated age 2.Eyes: PERRL, no conjunctival injection, and symmetrical lids. 3.ENT: Atraumatic external nose and ears. Moist MM. Neck: Symmetric, trachea midline, No thyromegaly. 4.CVS: +S1/S2, No murmurs or gallops. Peripheral pulses 2+ and equal in all extremities. Brisk capillary refill in all extremities. 5.RESP: Unlabored respiratory effort. Clear to auscultation bilaterally. No wheezes rales or rhonchi 6.GI: Soft, voluntary guarding, notable reproducible epigastric and right upper quadrant abdominal tenderness. No significant CVA tenderness. No pain at McBurney's point, no organomegaly. 7.MSK: Normocephalic/Atraumatic, Extremities w/o deformity or ttp No cyanosis or clubbing, Normal movement of all extremities 8.Skin: Warm, Dry. No rashes or lesions. 9.Neuro: manager automotive II-XII grossly intact. Sensation grossly intact, no focal neurologic deficits. 10.Psych: (AAO) x3. Appropriate mood and affect Course Vital Signs Temperature 36.7 C 09/16/18 10:11 Pulse 96 H 09/16/18 10:11 Respiratory Rate 20 09/16/18 10:11 Blood Pressure 125/79 09/16/18 10:11 Pulse Oximetry 100 09/16/18 10:11 Temperature 36.7 C 09/16/18 10:11 Temperature Source Temporal Artery Scan 09/16/18 10:11 Pulse 96 H 09/16/18 10:11 Respiratory Rate 20 09/16/18 10:11 Blood Pressure 125/79 09/16/18 10:11 Blood Pressure Position Sitting 09/16/18 10:11 Pulse Oximetry 100 09/16/18 10:11 Oxygen Delivery Method Room Air 09/16/18 10:11 Oxygen Flow Rate 0 09/16/18 10:11 Pain Level 10 09/16/18 10:11
[2018-09-16] MEDS: Normal Saline 1,000 ML 1000 ML IV ×2 (10:34→11:42)
[2018-09-16] MEDS: Ondansetron 4 MG/2 ML VIAL IVP ×2 (10:34→20:30)
[2018-09-16] MEDS: HYDROmorphone 2 MG/ML VIAL 1 MG IVP ×3 (10:35→12:44)
[2018-09-16 10:36] LABS: Lactate-non-spesis 2.3 mmol/l (0.6-1.4)
[2018-09-16 10:39] LABS: Abs Immature Grans 0.07 k/cumm (0.0-0.09); Absolute Basophil Count 0.02 k/cumm (0.0-0.2); Absolute Eosinophil Count 0.04 k/cumm (0.0-0.7); Absolute Lymphocyte Count 1.31 k/cumm (1.2-3.4); Absolute Monocyte Count 1.27 k/cumm (0.11-0.7); Absolute Neutrophil Count 6.16 k/cumm (1.2-6.7); Basophils % 0.2; Eosinophils % 0.5; HGB 15.5 g/dL (12.0-15.5); Immature Grans % 0.8; Lymphocytes % 14.8; Mean Corp. HGB Concentration 34.4 g/dL (32.0-36.0); Mean Corpuscular Hemoglobin 32.4 pg (27.0-33.0); Mean Corpuscular Volume 93.9 fL (80-95); Mean Platelet Volume 9.9 fL (8.0-11.0); Monocytes % 14.3; Neutrophils % 69.4; Platelet Count 351 x1000/uL (130-400); RBC 4.79 m/cumm (4.00-5.20); RBC Distribution Width 14.6 % (11.7-14.6); White Blood Cell Count 8.87 k/cumm (4.4-10.8)
[2018-09-16 10:50] LABS: Bilirubin Negative (Negative); Blood Negative (Negative); Clarity Clear; Glucose Negative (Negative); Ketones Negative (Negative); Leukocyte Esterase Moderate (Negative); Nitrite Negative (Negative); Specific Gravity 1.015 (1.005-1.025); Urobilinogen 0.2 EU/dL (Up TO 0.2); pH 8.5 (5-8)
[2018-09-16 10:51] LABS: PTT Activated 21.8 sec (21.0-31.4); Prothrombin Time 10.2 sec (9.3-11.0)
[2018-09-16 10:59] LABS: ALT 60 U/L (12-78); AST 40 U/L (15-37); Albumin 3.7 g/dL (3.4-5.0); Alkaline Phosphatase 192 U/L (46-116); Anion Gap 9.6 mmol/L (3-11); BUN 4 mg/dL (7-18); Bilirubin, Total 0.4 mg/dL (0.2-1.0); CO2 26.4 mmol/L (21.0-32.0); CREATININE 0.66 mg/dL (0.55-1.02); Calcium 9.4 mg/dL (8.5-10.1); Chloride 101 mmol/L (98-107); Glucose 128 mg/dL (70-100); Lipase 821 U/L (73-393); Potassium 4.3 mmol/L (3.5-5.1); Sodium 137 mmol/L (136-145); Total Protein 7.1 g/dL (6.4-8.2)
[2018-09-16 11:02] LABS: ETHANOL BLOOD < 3.0 mg/dL (<3); Troponin I < 0.02 ng/mL (0.00-0.06)
[2018-09-16 11:07] LABS: RBC Negative (0-2)
[2018-09-16 11:08] LABS: C & S Indicated? No/Sq. Contamination; Epithelial Cells Many HPF (Negative)
[2018-09-16] MEDS: diphenhydrAMINE 50 MG/ML VIAL 25 MG IVP (11:40)
[2018-09-16] MEDS: Ketorolac 30 MG/ML VIAL 15 MG IVP (11:41)
[2018-09-16] MEDS: cefTRIAXone 2 GM/50 ML BAG IVPB (11:41)
--- NOTE | 2018-09-16 12:15 | DI.VRAD_ITS ---
EXAM: CT Angiography Chest With Contrast EXAM DATE/TIME: 09/16/2018 10:25 AM CLINICAL HISTORY: 38 years old, female; Pain; Chest pain; Type not specified; Abdominal pain; Other: Ruq pain. ; Patient HX: Cp, SOB, epigastric and rlq pain, R/O pe, gb. HX of. - dvt bilat legs. -pancreatitis. -substance abuse TECHNIQUE: Imaging protocol: Axial computed tomographic angiography images of the chest with intravenous contrast using CT angiography protocol. Coronal and sagittal reformatted images were created and reviewed. 3D rendering: MIP reconstructed images were created and reviewed. Radiation optimization: All CT scans at this facility use at least one of these dose optimization techniques: automated exposure control; mA and/or kV adjustment per patient size (includes targeted exams where dose is matched to clinical indication); or iterative reconstruction. Contrast material: omnipaque 350 Contrast volume: 100 ml Contrast route: iv COMPARISON: No relevant prior studies available. FINDINGS: Pulmonary arteries: No evidence of pulmonary embolus to the segmental level. Aorta: No aneurysm of the aorta. No dissection of the aorta. Lungs: Normal. No consolidation. No masses. Pleural space: Normal. No pneumothorax. No pleural effusion. Heart: Normal. No cardiomegaly. No pericardial effusion. Lymph nodes: Unremarkable. No enlarged lymph nodes. Bones/joints: Unremarkable. No acute fracture. Soft tissues: Unremarkable. IMPRESSION: 1. No evidence of pulmonary embolus to the segmental level. 2. No aneurysm of the aorta. 3. No dissection of the aorta. EXAM: CT Angiography Abdomen and Pelvis With Contrast EXAM DATE/TIME: 09/16/2018 10:25 AM CLINICAL HISTORY: 38 years old, female; Pain; Chest pain; Type not specified; Abdominal pain; Other: Ruq pain. ; Patient HX: Cp, SOB, epigastric and rlq pain, R/O pe, gb. HX of. - dvt bilat legs. -pancreatitis. -substance abuse TECHNIQUE: Imaging protocol: Axial computed tomographic angiography images of the abdomen and pelvis with intravenous contrast material, including non-contrast images if performed. Coronal and sagittal reformatted images were created and reviewed. 3D rendering: MIP reconstructed images were created and reviewed. Radiation optimization: All CT scans at this facility use at least one of these dose optimization techniques: automated exposure control; mA and/or kV adjustment per patient size (includes targeted exams where dose is matched to clinical indication); or iterative reconstruction. COMPARISON: No relevant prior studies available. FINDINGS: VASCULATURE: Aorta: No aortic aneurysm. No aortic dissection. Celiac trunk and mesenteric arteries: No occlusion or significant stenosis. Renal arteries: No occlusion or significant stenosis. Right iliac arteries: No occlusion or significant stenosis. Left iliac arteries: No occlusion or significant stenosis. ABDOMEN: Liver: Hepatic steatosis Gallbladder and bile ducts: Unremarkable. No calcified stones. No ductal dilation. Pancreas: Calcifications in a markedly atrophied pancreas consistent with chronic pancreatitis Spleen: Unremarkable. No splenomegaly. Adrenals: Unremarkable. No mass. Kidneys and ureters: Unremarkable. No solid mass. No hydronephrosis. Stomach and bowel: Low-attenuation bowel wall thickening is seen throughout the colon consistent with colitis. Differential diagnosis includes infectious and inflammatory etiologies.. Appendix: Normal appendix Retroperitoneal space: Again noted is the large fluid collection in the retroperitoneum. It measures 9.8 x 5.7 cm and is most consistent with pancreatic pseudocyst. PELVIS: Bladder: Unremarkable. No mass. Reproductive: IUD in the uterus ABDOMEN and PELVIS: Intraperitoneal space: Moderate ascites in the abdomen. Mild ascites in the pelvis Impression. Bones/joints: No acute fracture. No dislocation. Soft tissues: Unremarkable. Lymph nodes: Unremarkable. No enlarged lymph nodes. IMPRESSION: 1. Low-attenuation bowel wall thickening is seen throughout the colon consistent with colitis. Differential diagnosis includes infectious and inflammatory etiologies.. 2. Again noted is the large fluid collection in the retroperitoneum. It measures 9.8 x 5.7 cm and is most consistent with pancreatic pseudocyst. Dictated and Authenticated by: Gaurav Shepard MD. Ordering:VILLA Sandoval MD
[2018-09-16] MEDS: Metoclopramide 10 MG/2 ML VIAL IVP ×2 (12:44→16:40)
[2018-09-16] MEDS: hydrOXYzine HCL 50 MG TAB PO ×3 (13:54→15:18)
[2018-09-16 14:23] VITALS: BP 106/65; PULSE 72; RESP 14; TEMP 36.6; O2SAT 99
[2018-09-16 14:43] VITALS: BP 116/75; PULSE 75; RESP 20; TEMP 36.6; O2SAT 100
[2018-09-16] MEDS: Normal Saline 1,000 ML 200 ML IV ×2 (15:08→19:46)
[2018-09-16] MEDS: fentaNYL 100 MCG/2 ML VIAL 50 MCG IVP ×2 (15:18→19:40)
[2018-09-16] MEDS: Enoxaparin 40 MG/0.4 ML SYR SC (16:40)
--- NOTE | 2018-09-16 16:40 | W.PM.HP.N ---
Date of service: 09/16/18 Time of Service: 16:40 Assessment and Plan (1) Acute pancreatitis: Current visit: Yes Status: Acute Potential acute pancreatitis based on current story, personal history, physical exam findings, and elevated lipase. Patient very likely has a history of chronic pancreatitis in the setting of chronic alcohol abuse, as well as a prior history of hemorrhagic pancreatitis in 2013 with discovery of a large pseudocyst. Will initiate treatment for acute pancreatitis with IV fluids and pain control. Patient had a reaction to hydromorphone - use IV fentanyl instead, as well as Toradol acutely. Maintain on n.p.o. status for now, with hopes of clear liquids by the morning. We will repeat a lipase in the a.m. Continue supportive care with anti-emetics as well. Of notes, pseudocyst appears actually smaller than previously imaged in December 2017, and very likely does not require drainage, or other intervention other than medical management at this time. Plans will be to obtain a american board certified orthotist with close GI follow-up as an outpatient. However, if her clinical picture changes will consider reimaging with official GI consultation if required. (2) Pancreatic pseudocyst: Current visit: Yes Status: Chronic (3) Alcohol abuse: Current visit: Yes Status: Chronic What appears to be a significant alcohol history by patient's report, reportedly without a drink over the last 7-10 days. Unusual episode of syncope with potential shaking as an outpatient 7 days ago, prompting a lorazepam taper prescribed by the ED doctor involved - potential for withdrawal seizures. Patient also reports withdrawal in the past. Currently appears to be non-tremulous, not diaphoretic, with stable vital signs. Highly doubt acute withdrawal, but will maintain patient on CIWA protocol, with standing oxazepam and gabapentin as well. Reevaluate in the morning. (4) Withdrawal seizures: Current visit: Yes Status: Suspected History and treatment as above. (5) History of DVT (deep vein thrombosis): Current visit: Yes Status: Chronic Reported history of DVT while hospitalized, in the setting of a hemorrhagic pseudocyst the patient likely did not receive chemical DVT prophylaxis. As such this was a provoked DVT. At current time she is not on any chronic anticoagulation. Will ensure DVT prophylaxis as below. (6) DVT prophylaxis: Current visit: Yes Status: Acute SC Lovenox, SCDs and TEDs. History of Present Illness Chief Complaint: Abdominal Pain Narrative: 38-year-old woman with a prior injury of alcohol abuse, history of Hemorrhagic Pancreatitis, and a Pancreatic Pseudocyst being admitted from [facility] emergency department with complaints of abdominal pain. Mrs. Robin has a past medical history significant for EtOH abuse and prior hemorrhagic pancreatitis leading to hospitalization in 2013, at which time she reports development of hemothorax as well as a collapsed lung, and discovery of a large pseudocyst. She also developed a likely provoked DVT in the setting of an acute hospitalization at that time. Following that she has had what appears to be chronic pancreatitis, with continued alcohol abuse, described as upwards of 724 ounce beers daily. She had an episode of falling onto her toilet due to intoxication, and following which she describes as a detailed discussion with her spouse she stopped drinking over 1 week ago. In fact, she was seen at the [facility] ED 7 days ago on 09/09, at which time she reported a fall at home attributed to weakness, with subsequent shaking type activity that lasted a few minutes approximately 4 days after her last drink - at that time this was attributed to likely alcohol withdrawal seizure. The patient was started on lorazepam and advised to quit drinking, she declined any further intervention including counseling she was discharged. She returned to the ED today complaining of sudden onset of epigastric pain at approximately 2 AM, the felt much like her episode of acute pancreatitis in 2013. Workup in the ED consisted of essentially unremarkable lab work with the exception of mildly elevated lipase at 821, and urinalysis findings of a likely UTI. She is being admitted for further treatment of a likely acute pancreatitis. Of note, she also reports loose stools since 2014, and some episodes of diarrhea recently. CT scan of her abdomen also showed bowel wall thickening throughout the colon that is consistent with colitis, question infectious versus inflammatory. Her pseudocyst has remained essentially unchanged to slightly smaller than previously mentioned. Review of Systems Review of Systems All systems reviewed & are unremarkable except as noted in HPI and below PFSH Medical History Chronic pancreatitis (Chronic) Anxiety (Chronic) Withdrawal seizures (Suspected) History of DVT (deep vein thrombosis) (Chronic) Alcohol abuse (Chronic) Acute pancreatitis (Acute) Hemorrhagic pancreatitis (Resolved) DVT (deep venous thrombosis) (Inactive) Pancreatitis (Inactive) Surgical History H/O chest tube placement (Inactive) Social History Smoking/Tobacco Use Status: Current every day Tobacco Type: cigarettes Tobacco: How many years used: 21 Alcohol Intake: current Alcohol Intake frequency: 3 or more drinks per day Alcohol type: beer Drug use: Daily Substance use type: marijuana Details: has not drank in one week Do you feel safe at home: Yes Do you feel safe in your relationship?: Yes Additional Social history: Patient is and has 2 children. Moved here from [place] approximately 2 years ago. 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 Reports ongoing alcohol use, upwards of 7 or more 24 ounce beers daily, last used approximately 1 week or more ago. 30+-pack-year history of smoking. Currently reports marijuana use, but previously was a polysubstance abuser, including cocaine but denies any IVDA history. Meds Home Medications Medication Instructions Recorded Confirmed Type melatonin 1 tab PO PRN PRN 01/30/18 09/16/18 History Allergies Allergy/AdvReac Type Severity Reaction Status Date / Time amoxicillin Allergy Unverified 09/16/18 10:37 codeine Allergy Unverified 09/16/18 10:37 Exam Narrative Exam Narrative: General: Patient appears comfortable, AAOX3, NAD Neck: Supple CV: Regular, nontachycardic, S1S2, No rubs, murmurs, or gallops. Pulmonary: Clear to auscultation bilaterally, no crackles, wheezing, or rhonchi Abdomen: + Bowel Sounds, soft, nondistended. Pain reported in the RUQ and epigastric region, but appears to have pain diffusely including the lower quadrants. Vascular: No lower extremity edema Neurologic: CN II-XII grossly intact. No focal deficits. Psych: Normal mood and affect. Results Imaging Additional studies: Exam(s) EXAM: CT Angiography Chest With Contrast EXAM DATE/TIME: 09/16/2018 10:25 AM CLINICAL HISTORY: 38 years old, female; Pain; Chest pain; Type not specified; Abdominal pain; Other: Ruq pain. ; Patient HX: Cp, SOB, epigastric and rlq pain, R/O pe, gb. HX of. - dvt bilat legs. -pancreatitis. -substance abuse TECHNIQUE: Imaging protocol: Axial computed tomographic angiography images of the chest with intravenous contrast using CT angiography protocol. Coronal and sagittal reformatted images were created and reviewed. 3D rendering: MIP reconstructed images were created and reviewed. Radiation optimization: All CT scans at this facility use at least one of these dose optimization techniques: automated exposure control; mA and/or kV adjustment per patient size (includes targeted exams where dose is matched to clinical indication); or iterative reconstruction. Contrast material: omnipaque 350 Contrast volume: 100 ml Contrast route: iv COMPARISON: No relevant prior studies available. FINDINGS: Pulmonary arteries: No evidence of pulmonary embolus to the segmental level. Aorta: No aneurysm of the aorta. No dissection of the aorta. Lungs: Normal. No consolidation. No masses. Pleural space: Normal. No pneumothorax. No pleural effusion. Heart: Normal. No cardiomegaly. No pericardial effusion. Lymph nodes: Unremarkable. No enlarged lymph nodes. Bones/joints: Unremarkable. No acute fracture. Soft tissues: Unremarkable. IMPRESSION: 1. No evidence of pulmonary embolus to the segmental level. 2. No aneurysm of the aorta. 3. No dissection of the aorta. EXAM: CT Angiography Abdomen and Pelvis With Contrast EXAM DATE/TIME: 09/16/2018 10:25 AM CLINICAL HISTORY: 38 years old, female; Pain; Chest pain; Type not specified; Abdominal pain; Other: Ruq pain. ; Patient HX: Cp, SOB, epigastric and rlq pain, R/O pe, gb. HX of. - dvt bilat legs. -pancreatitis. -substance abuse TECHNIQUE: Imaging protocol: Axial computed tomographic angiography images of the abdomen and pelvis with intravenous contrast material, including non-contrast images if performed. Coronal and sagittal reformatted images were created and reviewed. 3D rendering: MIP reconstructed images were created and reviewed. Radiation optimization: All CT scans at this facility use at least one of these dose optimization techniques: automated exposure control; mA and/or kV adjustment per patient size (includes targeted exams where dose is matched to clinical indication); or iterative reconstruction. COMPARISON: No relevant prior studies available. FINDINGS: VASCULATURE: Aorta: No aortic aneurysm. No aortic dissection. Celiac trunk and mesenteric arteries: No occlusion or significant stenosis. Renal arteries: No occlusion or significant stenosis. Right iliac arteries: No occlusion or significant stenosis. Left iliac arteries: No occlusion or significant stenosis. ABDOMEN: Liver: Hepatic steatosis Gallbladder and bile ducts: Unremarkable. No calcified stones. No ductal dilation. Pancreas: Calcifications in a markedly atrophied pancreas consistent with chronic pancreatitis Spleen: Unremarkable. No splenomegaly. Adrenals: Unremarkable. No mass. Kidneys and ureters: Unremarkable. No solid mass. No hydronephrosis. Stomach and bowel: Low-attenuation bowel wall thickening is seen throughout the colon consistent with colitis. Differential diagnosis includes infectious and inflammatory etiologies.. Appendix: Normal appendix Retroperitoneal space: Again noted is the large fluid collection in the retroperitoneum. It measures 9.8 x 5.7 cm and is most consistent with pancreatic pseudocyst. PELVIS: Bladder: Unremarkable. No mass. Reproductive: IUD in the uterus ABDOMEN and PELVIS: Intraperitoneal space: Moderate ascites in the abdomen. Mild ascites in the pelvis Impression. Bones/joints: No acute fracture. No dislocation. Soft tissues: Unremarkable. Lymph nodes: Unremarkable. No enlarged lymph nodes. IMPRESSION: 1. Low-attenuation bowel wall thickening is seen throughout the colon consistent with colitis. Differential diagnosis includes infectious and inflammatory etiologies.. 2. Again noted is the large fluid collection in the retroperitoneum. It measures 9.8 x 5.7 cm and is most consistent with pancreatic pseudocyst. Labs : 09/16/18 10:25 09/16/18 10:25 Laboratory Results - last 24 hr 09/16/18 09/16/18 09/16/18 10:25 10:25 10:25 WBC 8.87 RBC 4.79 Hgb 15.5 Hct 45.0 MCV 93.9 MCH 32.4 MCHC 34.4 RDW 14.6 Plt Count 351 D MPV 9.9 Immature Gran % 0.8 Neutrophils % 69.4 Lymphocytes % 14.8 Monocytes % 14.3 Eosinophils % 0.5 Basophils % 0.2 Absolute Neutrophils 6.16 Absolute Lymphocytes 1.31 Absolute Monocytes 1.27 H Absolute Eosinophils 0.04 Absolute Basophils 0.02 PT INR APTT Sodium 137 Potassium 4.3 Chloride 101 Carbon Dioxide 26.4 Anion Gap 9.6 BUN 4 L Creatinine 0.66 Estimated GFR/1.73 m2 >= 60.00 Glucose 128 H Lactate 2.3 H Calcium 9.4 Total Bilirubin 0.4 AST 40 H ALT 60 Alkaline Phosphatase 192 H Troponin I < 0.02 Total Protein 7.1 Albumin 3.7 Lipase 821 H Urine Color Urine Clarity Urine pH Ur Specific [place] Urine Protein Urine Ketones Urine Blood Urine Nitrite Urine Bilirubin Urine Urobilinogen Ur Leukocyte Esterase Urine RBC Urine WBC Ur Epithelial Cells Urine Crystals Urine Bacteria Urine Mucus Ur Culture Indicated? Urine Glucose Ethyl Alcohol < 3.0 09/16/18 09/16/18 10:25 10:42 WBC RBC Hgb Hct MCV MCH MCHC RDW Plt Count MPV Immature Gran % Neutrophils % Lymphocytes % Monocytes % Eosinophils % Basophils % Absolute Neutrophils Absolute Lymphocytes Absolute Monocytes Absolute Eosinophils Absolute Basophils PT 10.2 INR 1.0 APTT 21.8 Sodium Potassium Chloride Carbon Dioxide Anion Gap BUN Creatinine Estimated GFR/1.73 m2 Glucose Lactate Calcium Total Bilirubin AST ALT Alkaline Phosphatase Troponin I Total Protein Albumin Lipase Urine Color Yellow Urine Clarity Clear Urine pH 8.5 H Ur Specific [place] 1.015 Urine Protein Negative Urine Ketones Negative Urine Blood Negative Urine Nitrite Negative Urine Bilirubin Negative Urine Urobilinogen 0.2 Ur Leukocyte Esterase Moderate H Urine RBC Negative Urine WBC 10-20 Ur Epithelial Cells Many Urine Crystals Not Applicable Urine Bacteria Not Applicable Urine Mucus Not Applicable Ur Culture Indicated? No/sq. contamination Urine Glucose Negative Ethyl Alcohol Last Vital Signs Temp 36.6 C 09/16/18 14:43 Pulse 75 09/16/18 14:43 Resp 20 09/16/18 14:43 BP 116/75 09/16/18 14:43 Pulse Ox 100 09/16/18 14:43
[2018-09-16] MEDS: Ketorolac 30 MG/ML VIAL IVP (18:04)
[2018-09-16] MEDS: Gabapentin 400 MG CAP 800 MG PO (19:40)
[2018-09-16] MEDS: Melatonin 3 MG TAB PO (21:20)
[2018-09-16 23:48] VITALS: BP 92/54; PULSE 67; RESP 16; TEMP 37.4; O2SAT 98
[2018-09-17] MEDS: Normal Saline 1,000 ML 200 ML IV ×5 (00:29→22:41)
[2018-09-17] MEDS: fentaNYL 100 MCG/2 ML VIAL 50 MCG IVP ×6 (02:11→23:17)
[2018-09-17] MEDS: Ondansetron 4 MG/2 ML VIAL IVP (02:52)
[2018-09-17] MEDS: Ketorolac 30 MG/ML VIAL IVP ×4 (02:53→22:40)
[2018-09-17 06:11] VITALS: BP 108/62; PULSE 69; RESP 16; TEMP 37.2; O2SAT 98
[2018-09-17 06:36] LABS: Lactate-non-spesis 0.5 mmol/l (0.6-1.4)
[2018-09-17 06:41] LABS: Abs Immature Grans 0.02 k/cumm (0.0-0.09); Absolute Basophil Count 0.02 k/cumm (0.0-0.2); Absolute Eosinophil Count 0.04 k/cumm (0.0-0.7); Absolute Monocyte Count 0.91 k/cumm (0.11-0.7); Basophils % 0.4; Eosinophils % 0.8; HGB 12.4 g/dL (12.0-15.5); Immature Grans % 0.4; Lymphocytes % 28.8; Mean Corp. HGB Concentration 32.6 g/dL (32.0-36.0); Mean Corpuscular Hemoglobin 31.7 pg (27.0-33.0); Mean Corpuscular Volume 97.2 fL (80-95); Mean Platelet Volume 9.7 fL (8.0-11.0); Monocytes % 17.5; Neutrophils % 52.1; Platelet Count 288 x1000/uL (130-400); RBC 3.91 m/cumm (4.00-5.20); RBC Distribution Width 14.6 % (11.7-14.6); White Blood Cell Count 5.21 k/cumm (4.4-10.8)
[2018-09-17 06:43] LABS: Absolute Neutrophil Count 2.71 k/cumm (1.2-6.7)
[2018-09-17 06:49] LABS: ALT 41 U/L (12-78); AST 26 U/L (15-37); Albumin 2.9 g/dL (3.4-5.0); Alkaline Phosphatase 159 U/L (46-116); Anion Gap 6.4 mmol/L (3-11); BUN 2 mg/dL (7-18); Bilirubin, Direct 0.13 mg/dL (0.00-0.20); Bilirubin, Total 0.3 mg/dL (0.2-1.0); CO2 26.6 mmol/L (21.0-32.0); CREATININE 0.56 mg/dL (0.55-1.02); Calcium 8.2 mg/dL (8.5-10.1); Chloride 108 mmol/L (98-107); Glucose 78 mg/dL (70-100); Lipase 226 U/L (73-393); Magnesium 1.7 mg/dL (1.8-2.4); Sodium 141 mmol/L (136-145); Total Protein 5.9 g/dL (6.4-8.2)
[2018-09-17] MEDS: Thiamine 100 MG TAB PO (07:55)
[2018-09-17] MEDS: Multivitamin TAB 1 TAB PO (07:55)
[2018-09-17] MEDS: Gabapentin 400 MG CAP 800 MG PO ×2 (07:55→20:49)
[2018-09-17] MEDS: Folic Acid 1 MG TAB PO (07:55)
[2018-09-17 08:35] VITALS: BP 126/68; PULSE 82; RESP 16; TEMP 36.2; O2SAT 98
[2018-09-17] MEDS: Magnesium Oxide 400 MG TAB PO (09:54)
[2018-09-17] MEDS: cefTRIAXone 1 GM/50 ML BAG IVPB (12:04)
[2018-09-17 12:23] VITALS: O2SAT 95
[2018-09-17] MEDS: Enoxaparin 40 MG/0.4 ML SYR SC (15:15)
[2018-09-17] MEDS: Normal Saline Flush 10 ML SYR IVP ×2 (15:54→18:21)
[2018-09-17 16:57] VITALS: BP 125/77; PULSE 67; RESP 19; TEMP 37; O2SAT 100
[2018-09-17] MEDS: Nicotine 14 MG/24 HR PATCH TD (18:20)
--- NOTE | 2018-09-17 19:32 | W.PM.PROGNOT ---
Date of Service Date of service: 09/17/18 Time of Service: 19:32 Assessment and Plan (1) Acute pancreatitis: Current visit: Yes Status: Acute Potential acute pancreatitis based on current story, personal history, physical exam findings, and elevated lipase. Patient very likely has a history of chronic pancreatitis in the setting of chronic alcohol abuse, as well as a prior history of hemorrhagic pancreatitis in 2013 with discovery of a large pseudocyst. Lipase normalized. Continue but decrease rate of IV fluids, and continue pain control. Advance diet and repeat a lipase in the morning. Continue supportive care with anti-emetics as well. Of notes, pseudocyst appears actually smaller than previously imaged in December 2017, and very likely does not require drainage, or other intervention other than medical management at this time. Plans will be to obtain a digital asset manager with close GI follow-up as an outpatient. However, if her clinical picture changes will consider reimaging with official GI consultation if required. (2) Pancreatic pseudocyst: Current visit: Yes Status: Chronic (3) Alcohol abuse: Current visit: Yes Status: Chronic What appears to be a significant alcohol history by patient's report, reportedly without a drink over the last 7-10 days. Unusual episode of syncope with potential shaking as an outpatient 7 days ago, prompting a lorazepam taper prescribed by the ED doctor involved - potential for withdrawal seizures. Patient also reports withdrawal in the past. Currently appears to be non-tremulous, not diaphoretic, with stable vital signs. Highly doubt acute withdrawal, but will maintain patient on CIWA protocol, with standing oxazepam and gabapentin as well. No evidence of withdrawl currently. (4) Withdrawal seizures: Current visit: Yes Status: Suspected History and treatment as above. (5) History of DVT (deep vein thrombosis): Current visit: Yes Status: Chronic Reported history of DVT while hospitalized, in the setting of a hemorrhagic pseudocyst the patient likely did not receive chemical DVT prophylaxis. As such this was a provoked DVT. At current time she is not on any chronic anticoagulation. Will ensure DVT prophylaxis as below. (6) DVT prophylaxis: Current visit: Yes Status: Acute SC Lovenox, SCDs and TEDs. Subjective Interval history since last seen: 38-year-old woman with a prior injury of alcohol abuse, history of Hemorrhagic Pancreatitis, and a Pancreatic Pseudocyst admitted from [facility] emergency department on 3/31 with a diagnosis of acute pancreatitis. Mrs. Robin has a past medical history significant for EtOH abuse and prior hemorrhagic pancreatitis leading to hospitalization in 2013 in [place]. She went on to develop a hemothorax and collapsed lung, discovery of a large Pancreatic Pseudocyst, and development of a likely provoked DVT in the setting of an acute hospitalization at that time. Following that she has had what appears to be chronic pancreatitis, with continued alcohol abuse, described as upwards of 7 24oz beers daily. She had an episode of falling onto her toilet recently due to intoxication, and following that she had a discussion with her spouse and reportedly stopped drinking over 1 week prior to her admission. In fact, she was seen in the ED 7 days prior to her admission (09/09), at which time she reported a fall at home attributed to weakness, with subsequent shaking type activity that lasted a few minutes. This occured approximately 4 days after her last drink - at that time this episode was attributed to likely alcohol withdrawal seizure. The patient was started on lorazepam and advised to quit drinking, and as she declined any further intervention including counseling she was discharged. She returned to the ED on the day of this admission complaining of sudden onset of epigastric and RUQ pain at approximately 2 AM, the felt much like her episode of acute pancreatitis in 2013. Workup in the ED consisted of essentially unremarkable lab work with the exception of mildly elevated lipase at 821, and urinalysis findings of a likely UTI. She is being admitted for further treatment of a likely acute pancreatitis. Of note, she also reports loose stools since 2014, and some episodes of diarrhea recently. CT scan of her abdomen also showed bowel wall thickening throughout the colon that is consistent with colitis, question infectious versus inflammatory. Her fecal leukocytes were negative, and stool for C.Diff was rejected by the lab as her stool sample was formed. Her pseudocyst has remained essentially unchanged to slightly smaller than previously mentioned. This morning the patient's lipase has normalized, and her pain appears improved. No overnight events reported. She remains afebrile. Exam Narrative Exam Narrative: General: Patient appears comfortable, AAOX3, NAD Neck: Supple CV: Regular, nontachycardic, S1S2, No rubs, murmurs, or gallops. Pulmonary: Clear to auscultation bilaterally, no crackles, wheezing, or rhonchi Abdomen: + Bowel Sounds, soft, nondistended. Pain reported in the RUQ and epigastric region, but appears improved. Vascular: No lower extremity edema Psych: Normal mood and affect. Objective Objective Clinical Data: Abnormal lab results 09/17/18 09/17/18 09/17/18 Range/Units 06:32 06:32 06:32 RBC 3.91 L (4.00-5.20) m/cumm MCV 97.2 H D (80-95) fL Absolute Monocytes 0.91 H (0.11-0.7) k/cumm Chloride 108 H (98-107) mmol/L BUN 2 L (7-18) mg/dL Lactate 0.5 L (0.6-1.4) mmol/l Calcium 8.2 L (8.5-10.1) mg/dL Magnesium 1.7 L (1.8-2.4) mg/dL Alkaline Phosphatase 159 H (46-116) U/L Total Protein 5.9 L (6.4-8.2) g/dL Albumin 2.9 L (3.4-5.0) g/dL Vital Signs Temperature 37.0 C 09/17/18 16:57 Temperature Source Tympanic 09/17/18 16:57 Pulse 67 09/17/18 16:57 Pulse Rhythm Regular 09/17/18 07:50 Respiratory Rate 19 09/17/18 16:57 Respiratory Effort Non-Labored 09/17/18 07:50 Respiratory Depth Normal 09/17/18 07:50 Respiratory Pattern Normal 09/17/18 07:50 Blood Pressure 125/77 09/17/18 16:57 Blood Pressure Mean 91 09/16/18 10:06 Blood Pressure Position Sitting 09/16/18 10:11 Pulse Oximetry 100 09/17/18 16:57 Oxygen Delivery Method Room Air 09/17/18 16:57 Oxygen Flow Rate 0 09/17/18 16:57 Pain Level 7 09/17/18 18:20 Comment 09/17/18 08:35 Intake & Output 09/16/18 09/17/18 09/17/18 23:59 11:59 23:59 Intake Total 2060 / 3060 3000 / 6500 3500 / 6500 Output Total 1225 / 1225 1350 / 3150 1800 / 3150 Balance 835 / 1835 1650 / 3350 1700 / 3350 Weight 58.06 kg Intake: IV 2060 / 3060 3000 / 4100 1100 / 4100 Oral 2400 / 2400 Output: Urine 1225 / 1225 1350 / 3150 1800 / 3150 Other: Urine Color Yellow Yellow Yellow Urine Appearance Clear Clear Clear Urine Odor Normal Normal Comment Pt c/o minimal voiding, itching, pain with urination. UA obtained and pending. Multiple voids in toilet. Pt voiding well and often. Hat removed and pt now voiding ad amish with no measurements. Stool Size Small Stool Characteristics Formed Brown Voiding Methods Toilet Toilet Toilet Laboratory Results WBC 5.21 k/cumm (4.4-10.8) D 09/17/18 06:32 RBC 3.91 m/cumm (4.00-5.20) L 09/17/18 06:32 Hgb 12.4 g/dL (12.0-15.5) D 09/17/18 06:32 Hct 38.0 % (36.0-46.0) 09/17/18 06:32 MCV 97.2 fL (80-95) H D 09/17/18 06:32 MCH 31.7 pg (27.0-33.0) 09/17/18 06:32 MCHC 32.6 g/dL (32.0-36.0) 09/17/18 06:32 RDW 14.6 % (11.7-14.6) 09/17/18 06:32 Plt Count 288 x1000/uL (130-400) 09/17/18 06:32 MPV 9.7 fL (8.0-11.0) 09/17/18 06:32 Immature Gran % 0.4 09/17/18 06:32 Neutrophils % 52.1 09/17/18 06:32 Lymphocytes % 28.8 09/17/18 06:32 Monocytes % 17.5 09/17/18 06:32 Eosinophils % 0.8 09/17/18 06:32 Basophils % 0.4 09/17/18 06:32 Absolute Neutrophils 2.71 k/cumm (1.2-6.7) 09/17/18 06:32 Absolute Lymphocytes 1.50 k/cumm (1.2-3.4) 09/17/18 06:32 Absolute Monocytes 0.91 k/cumm (0.11-0.7) H 09/17/18 06:32 Absolute Eosinophils 0.04 k/cumm (0.0-0.7) 09/17/18 06:32 Absolute Basophils 0.02 k/cumm (0.0-0.2) 09/17/18 06:32 PT 10.2 sec (9.3-11.0) 09/16/18 10:25 INR 1.0 (0.9-1.1) 09/16/18 10:25 APTT 21.8 sec (21.0-31.4) 09/16/18 10:25 Sodium 141 mmol/L (136-145) 09/17/18 06:32 Potassium 4.0 mmol/L (3.5-5.1) 09/17/18 06:32 Chloride 108 mmol/L (98-107) H 09/17/18 06:32 Carbon Dioxide 26.6 mmol/L (21.0-32.0) 09/17/18 06:32 Anion Gap 6.4 mmol/L (3-11) 09/17/18 06:32 BUN 2 mg/dL (7-18) L 09/17/18 06:32 Creatinine 0.56 mg/dL (0.55-1.02) 09/17/18 06:32 Estimated GFR/1.73 m2 >= 60.00 (mL/min/1.73m2) 09/17/18 06:32 Glucose 78 mg/dL (70-100) D 09/17/18 06:32 Lactate 0.5 mmol/l (0.6-1.4) L 09/17/18 06:32 Calcium 8.2 mg/dL (8.5-10.1) L 09/17/18 06:32 Magnesium 1.7 mg/dL (1.8-2.4) L 09/17/18 06:32 Total Bilirubin 0.3 mg/dL (0.2-1.0) 09/17/18 06:32 Conjugated Bilirubin 0.13 mg/dL (0.00-0.20) 09/17/18 06:32 AST 26 U/L (15-37) 09/17/18 06:32 ALT 41 U/L (12-78) 09/17/18 06:32 Alkaline Phosphatase 159 U/L (46-116) H 09/17/18 06:32 Troponin I < 0.02 ng/mL (0.00-0.06) 09/16/18 10:25 Total Protein 5.9 g/dL (6.4-8.2) L 09/17/18 06:32 Albumin 2.9 g/dL (3.4-5.0) L 09/17/18 06:32 Lipase 226 U/L (73-393) 09/17/18 06:32 Urine Color Yellow (Yellow) 09/16/18 10:42 Urine Clarity Clear 09/16/18 10:42 Urine pH 8.5 (5-8) H 09/16/18 10:42 Ur Specific [place] 1.015 (1.005-1.025) 09/16/18 10:42 Urine Protein Negative mg/dL (Negative) 09/16/18 10:42 Urine Ketones Negative mg/dL (Negative) 09/16/18 10:42 Urine Blood Negative (Negative) 09/16/18 10:42 Urine Nitrite Negative (Negative) 09/16/18 10:42 Urine Bilirubin Negative (Negative) 09/16/18 10:42 Urine Urobilinogen 0.2 EU/dL (Up TO 0.2) 09/16/18 10:42 Ur Leukocyte Esterase Moderate (Negative) H 09/16/18 10:42 Urine RBC Negative (0-2) 09/16/18 10:42 Urine WBC 10-20 HPF (0-5) 09/16/18 10:42 Ur Epithelial Cells Many HPF (Negative) 09/16/18 10:42 Urine Crystals Not Applicable 09/16/18 10:42 Urine Bacteria Not Applicable 09/16/18 10:42 Urine Mucus Not Applicable 09/16/18 10:42 Ur Culture Indicated? No/sq. contamination 09/16/18 10:42 Urine Glucose Negative mg/dL (Negative) 09/16/18 10:42 Ethyl Alcohol < 3.0 mg/dL (<3) 09/16/18 10:25
[2018-09-17] MEDS: Melatonin 3 MG TAB PO (23:17)
[2018-09-17] MEDS: diphenhydrAMINE 25 MG CAP PO (23:38)
[2018-09-17 23:45] VITALS: BP 142/81; PULSE 77; RESP 18; TEMP 37.2; O2SAT 100
[2018-09-18] MEDS: Normal Saline 1,000 ML 200 ML IV ×2 (03:09→07:36)
[2018-09-18] MEDS: Ketorolac 30 MG/ML VIAL IVP ×2 (05:44→17:22)
[2018-09-18] MEDS: fentaNYL 100 MCG/2 ML VIAL 50 MCG IVP ×2 (06:48→11:54)
[2018-09-18] MEDS: Normal Saline Flush 10 ML SYR IVP ×4 (06:49→17:31)
[2018-09-18 07:19] LABS: Abs Immature Grans 0.03 k/cumm (0.0-0.09); Absolute Basophil Count 0.02 k/cumm (0.0-0.2); Absolute Eosinophil Count 0.07 k/cumm (0.0-0.7); Absolute Lymphocyte Count 1.38 k/cumm (1.2-3.4); Absolute Monocyte Count 0.75 k/cumm (0.11-0.7); Absolute Neutrophil Count 1.84 k/cumm (1.2-6.7); Basophils % 0.5; Eosinophils % 1.7; HCT 36.3 % (36.0-46.0); HGB 11.9 g/dL (12.0-15.5); Immature Grans % 0.7; Lymphocytes % 33.7; Mean Corp. HGB Concentration 32.8 g/dL (32.0-36.0); Mean Corpuscular Hemoglobin 31.5 pg (27.0-33.0); Mean Platelet Volume 10.2 fL (8.0-11.0); Monocytes % 18.3; Neutrophils % 45.1; Platelet Count 291 x1000/uL (130-400); RBC 3.78 m/cumm (4.00-5.20); RBC Distribution Width 14.1 % (11.7-14.6); White Blood Cell Count 4.09 k/cumm (4.4-10.8)
[2018-09-18] MEDS: Ondansetron 4 MG/2 ML VIAL IVP ×2 (07:34→17:30)
[2018-09-18] MEDS: diphenhydrAMINE 25 MG CAP PO ×2 (07:35→11:53)
[2018-09-18] MEDS: Thiamine 100 MG TAB PO (07:35)
[2018-09-18] MEDS: Gabapentin 400 MG CAP 800 MG PO (07:35)
[2018-09-18] MEDS: Multivitamin TAB 1 TAB PO (07:35)
[2018-09-18] MEDS: Folic Acid 1 MG TAB PO (07:35)
[2018-09-18 07:44] VITALS: BP 130/80; PULSE 61; RESP 18; TEMP 36.5; O2SAT 99
[2018-09-18 07:57] LABS: ALT 96 U/L (12-78); AST 107 U/L (15-37); Albumin 2.8 g/dL (3.4-5.0); Alkaline Phosphatase 203 U/L (46-116); BUN 3 mg/dL (7-18); Bilirubin, Direct 0.11 mg/dL (0.00-0.20); Bilirubin, Total 0.2 mg/dL (0.2-1.0); CO2 24.4 mmol/L (21.0-32.0); CREATININE 0.57 mg/dL (0.55-1.02); Calcium 8.3 mg/dL (8.5-10.1); Glucose 128 mg/dL (70-100); Total Protein 5.8 g/dL (6.4-8.2)
[2018-09-18 08:20] LABS: Anion Gap 9.6 mmol/L (3-11); Chloride 107 mmol/L (98-107); Potassium 4.1 mmol/L (3.5-5.1); Sodium 141 mmol/L (136-145)
[2018-09-18 08:38] LABS: Lipase 135 U/L (73-393); Magnesium 1.9 mg/dL (1.8-2.4)
--- NOTE | 2018-09-18 10:28 | DI.US_ITS ---
SYMPTOMS/DIAGNOSIS: ELEVATED LFTS, PANCREATITIS ABDOMINAL ULTRASOUND: There is some increased echogenicity in the liver consistent with fatty infiltration. The gallbladder is contracted in this patient who is post prandial. The common duct caliber is 3 mm. There is some questionable dilatation of the duct of [place]. A complex cyst is noted adjacent to the pancreatic head on the right side and measures 10.7 x 6.8 x 8.6 cm and appears to contain solid components. This lesion is avascular and could I suppose represent a pancreatic pseudocyst. There is a question regarding echogenic region in the wall of the gallbladder fundus which may measure up to 9 x 5 x 9 mm and appears to be avascular. This area is difficult to evaluate in this patient who is not NPO.
[2018-09-18 11:11] VITALS: BP 155/88; PULSE 65; RESP 18; TEMP 37.2; O2SAT 100
--- NOTE | 2018-09-18 11:15 | PDOC.CMIN ---
- If Service Date Differs Date of service: 09/17/18 Time of Service: 14:10 Care Management Initial Assess REASON FOR HOSPITALIZATION:: Acute Pancreatitis PAST MEDICAL HISTORY/PAST SURGICAL HISTORY:: Acute pancreatitis, alcohol abuse, anxiety, chronic pancreatitis, DVT, Hemorrhagic pancreatitis, pancreatic pseudocyst, withdrawal seizures, chest tube placement PREVIOUS FUNCTIONAL STATUS/SOCIAL/FAMILY SUPPORTS:: Zahraa resides with her , Harsh in [place], [place]. ADVANCE DIRECTIVES:: None on file at [facility] Has patient been provided with information about the portal?: Yes Did the patient sign up for the portal?: No CODE STATUS:: Full Code INSURANCE COVERAGE / FINANCIAL ISSUES:: Medicaid CURRENT HOME/COMMUNITY SERVICES/EQUIPMENT:: No currents services or equipment. PRIMARY CARE PHYSICIAN:: Assigned to Dr. Abiel Clark with follow up as patient presented without PCP. POTENTIAL DISCHARGE NEEDS:: PCP assignment, follow up appointments. PATIENT/FAMILY EDUCATION NEEDS:: Review of discharge instructions, discuss Ask Me Three. ANTICIPATED BARRIERS TO DISCHARGE:: None identified. TRANSPORTATION:: Via private vehicle with family. PLAN:: Zahraa will return home when ready per MD, she will have follow up appointments and PCP assignment. CM will continue to follow and support discharge planning considerations.
[2018-09-18] MEDS: cefTRIAXone 1 GM/50 ML BAG IVPB (11:55)
[2018-09-18 11:56] LABS: Campylobacter PCR SEE COMMENTS; Salmonella PCR SEE COMMENTS; Shiga Toxin PCR SEE COMMENTS; Shigella/Enteroinvasive Ecoli SEE COMMENTS
[2018-09-18 13:56] VITALS: BP 134/83; PULSE 71; RESP 18; TEMP 36.8; O2SAT 100
[2018-09-18 14:08] VITALS: BP 162/77; PULSE 98; TEMP 37; O2SAT 99
[2018-09-18] MEDS: LORazepam 2 MG/ML VIAL (14:16)
--- NOTE | 2018-09-18 14:50 | CHAPLAIN ---
When I visited Zahraa this morning, she was anxious about waiting to hear if she needs surgery or not. She was soothing herself with a cool cloth, but still clearly very anxious. She said her will be in after work. They have two daughters, 12 and 13 years old. I will continue to visit.
[2018-09-18 16:09] VITALS: BP 132/81; PULSE 77; RESP 18; TEMP 36.4; O2SAT 93
--- NOTE | 2018-09-18 17:03 | INITIAL_ITS ---
- If Service Date Differs Date of service: 09/17/18 Time of Service: 14:10 Care Management Initial Assess REASON FOR HOSPITALIZATION:: Acute Pancreatitis PAST MEDICAL HISTORY/PAST SURGICAL HISTORY:: Acute pancreatitis, alcohol abuse, anxiety, chronic pancreatitis, DVT, Hemorrhagic pancreatitis, pancreatic pseudocyst, withdrawal seizures, chest tube placement PREVIOUS FUNCTIONAL STATUS/SOCIAL/FAMILY SUPPORTS:: Zahraa resides with her , Harsh in [place], [place]. ADVANCE DIRECTIVES:: None on file at [facility] Has patient been provided with information about the portal?: Yes Did the patient sign up for the portal?: No CODE STATUS:: Full Code INSURANCE COVERAGE / FINANCIAL ISSUES:: Medicaid CURRENT HOME/COMMUNITY SERVICES/EQUIPMENT:: No currents services or equipment. PRIMARY CARE PHYSICIAN:: Assigned to Dr. Abiel Clark with follow up as patient presented without PCP. POTENTIAL DISCHARGE NEEDS:: PCP assignment, follow up appointments. PATIENT/FAMILY EDUCATION NEEDS:: Review of discharge instructions, discuss Ask Me Three. ANTICIPATED BARRIERS TO DISCHARGE:: None identified. TRANSPORTATION:: Via private vehicle with family. PLAN:: Zahraa will return home when ready per MD, she will have follow up appointments and PCP assignment. CM will continue to follow and support discharge planning considerations.
--- NOTE | 2018-09-18 17:03 | PDOC.CMDIS ---
LACE Index Scoring Tool - Questions: Length of Stay (in days): 2 Acuity (Admit via E.D.?): Yes E.D. Visits: 5 - Answers: Total Score: 9 Risk of Readmission: Low Risk Care Management Discharge Reason for Hospitalization: Acute Pancreatitis Discharge Plan: Zahraa will return home when ready per MD, she will have follow up appointments with Neurology, [facility] (CM faxed referral) and PCP assigned through edge bonder procedure: [facility]. She will transport via private vehicle with family. Patient/Family Education Needs: Review discharge instructions, discuss Ask Me Three.
--- NOTE | 2018-09-18 17:08 | CMDISCH_ITS ---
LACE Index Scoring Tool - Questions: Length of Stay (in days): 2 Acuity (Admit via E.D.?): Yes E.D. Visits: 5 - Answers: Total Score: 9 Risk of Readmission: Low Risk Care Management Discharge Reason for Hospitalization: Acute Pancreatitis Discharge Plan: Zahraa will return home when ready per MD, she will have follow up appointments with Neurology, [facility] (CM faxed referral) and PCP assigned through production superintendent procedure: [facility]. She will transport via private vehicle with family. Patient/Family Education Needs: Review discharge instructions, discuss Ask Me Three.
--- NOTE | 2018-09-18 17:31 | DSE_ITS ---
Date of service: 09/18/18 Time of Service: 17:20 DS: Diagnosis Discharge Diagnosis (1) Acute pancreatitis: Status: Acute (2) Pancreatic pseudocyst: Status: Chronic (3) Alcohol abuse: Status: Chronic (4) Withdrawal seizures: Status: Suspected (5) History of DVT (deep vein thrombosis): Status: Chronic Discharge Plan Disposition Condition: Stable Discharge Details Reason For Visit: ACUTE PANCREATITIS Admit Date/Time: 09/16/18 13:43 Admit Provider: Antwan Oneil Attending Provider: Antwan Oneil Primary Care Provider: None,None Hospital Course Hospital Course: CC: Abdominal Pain HPI: 38-year-old woman with a prior injury of alcohol abuse, history of Hemorrhagic Pancreatitis, and a Pancreatic Pseudocyst admitted from [facility] emergency department on 09/16 with a diagnosis of acute pancreatitis. Mrs. Robin has a past medical history significant for EtOH abuse and prior hemorrhagic pancreatitis leading to hospitalization in 2013 in [place]. She went on to develop a hemothorax and collapsed lung, discovery of a large Pancreatic Pseudocyst, and development of a likely provoked DVT in the setting of an acute hospitalization at that time. Following that she has had what appears to be chronic pancreatitis, with continued alcohol abuse, described as upwards of 7 24oz beers daily. She had an episode of falling onto her toilet recently due to intoxication, and following that she had a discussion with her spouse and reportedly stopped drinking over 1 week prior to her admission. In fact, she was seen in the ED 7 days prior to her admission (09/09), at which time she reported a fall at home attributed to weakness, with subsequent shaking type activity that lasted a few minutes. This occured approximately 4 days after her last drink - at that time this episode was attributed to likely alcohol withdrawal seizure. The patient was started on lorazepam and advised to quit drinking, and as she declined any further intervention including counseling she was discharged. Of note, this was apparently the 6th or 7th such episode over the course of the last few years. She reports previously being told that it was alcoholic withdrawl seizure when she lived in [place]. She returned to the ED on the day of this admission complaining of sudden onset of epigastric and RUQ pain at approximately 2 AM, the felt much like her episode of acute pancreatitis in 2013. Workup in the ED consisted of essentially unremarkable lab work with the exception of mildly elevated lipase at 821, and urinalysis findings of a likely UTI. She was admitted for further treatment of a likely acute pancreatitis. Of note, she also reported loose stools since 2014, and some episodes of diarrhea prior to her hospitalization. CT scan of her abdomen also showed bowel wall thickening throughout the colon that is consistent with colitis, question infectious versus inflammatory. Her fecal leukocytes were negative, and stool for C.Diff was rejected by the lab as her stool sample was formed. Her pseudocyst has remained essentially unchanged to slightly smaller than previously mentioned. This morning the patient's lipase has normalized, and her pain appears improved. However, this afternoon she experienced another apparent 'seizure', during or shortly after which she rang for nursing assistance. At time of arrival for evaluation she was noted to be shaking and conversant at the same time, without a noticeable post-ictal state. Hospital Course: (1) Acute pancreatitis: Potential acute pancreatitis based on current story, personal history, physical exam findings, and elevated lipase. Patient has a history of chronic pancreatitis in the setting of chronic alcohol abuse, as well as a prior history of hemorrhagic pancreatitis in 2013 with discovery of a large pseudocyst. Lipase normalized and continued to improve even after initiation and advancement of diet. Of notes, pseudocyst appears actually smaller than previously imaged in December 2017, and very likely does not require drainage, or other intervention other than medical management at this time. Plans will be to follow-up with a studio set up worker with close follow-up as an outpatient. (2) Elevated LFTs Chronically elevated Alk Phos, with fluctuating levels of ALT and AST over time (20's to 180's for AST, 30's to 120's for ALT) over the last 2 years by labwork. Bilirubin entirely normal. CT with hepatic steatosis, otherwise unremarkable. Ultrasound without dilation of the CBD (note of questionable 'some' dilation of the duct of Wirsung). Discussed case with GI from [facility] - given current clinical picture and benign exam no further work-up recommended, specifically no MRCP. She will be scheduled for follow-up via referral to GI. She was also strongly advised to stop drinking. (3) Alcohol abuse: What appears to be a significant alcohol history by patient's report, reportedly without a drink over the last 7-10 days. Unusual episode of syncope with potential shaking as an outpatient 7 days ago, prompting a lorazepam taper prescribed by the ED doctor involved in her care. Repeat episode today, with patient able to call nursing for help, fully conversant and without a post-ictal state following. Unsure if this represents pseudoseizures vs. other, but certainly very atypical. Will check an EEG as an outpatient. Mrs. Robin does not drive. She will be called by the neurology office for follow-up appointment. Currently appears to be non-tremulous, not diaphoretic, with stable vital signs. Highly doubt acute withdrawal. (4) Withdrawal seizures: History and treatment as above. (5) History of DVT (deep vein thrombosis): Reported history of DVT while hospitalized, in the setting of a hemorrhagic pseudocyst the patient likely did not receive chemical DVT prophylaxis. As such this was a provoked DVT. At current time she is not on any chronic anticoagulation. Will ensure DVT prophylaxis as below. (6) DVT prophylaxis: SC Lovenox, SCDs and TEDs. (7) Disposition: Case Management assisted with procuring of PCP, GI Referral, and Neurology follow-up. Home Meds and New Rx's Prescriptions: New oxycodone 5 mg tablet 5 mg PO Q4H PRN PRN (Reason: pain) Qty: 20 RF: 0 Continued melatonin 3 MG tablet 1 tab PO PRN PRNRF: 0 Discharge Instructions Referrals: Abiel Clark [ [facility] STAFF PHYSICIAN] - 09/28/18 10:30 am Activity:: No driving, climbing ladders, or operating heavy machinery. No strenuous activity. Exam Narrative Exam Narrative: General: Patient appears comfortable, AAOX3, NAD Neck: Supple CV: Regular, nontachycardic, S1S2, No rubs, murmurs, or gallops. Pulmonary: Clear to auscultation bilaterally, no crackles, wheezing, or rhonchi Abdomen: + Bowel Sounds, soft, nondistended. Pain reported in the RUQ and epigastric region, but appears improved. Vascular: No lower extremity edema Psych: Normal mood and affect. DS: Data Vitals/I&O Vitals and I&O: Vital Signs Temperature 36.4 C L 09/18/18 16:09 Temperature Source Tympanic 09/18/18 16:09 Pulse 77 09/18/18 16:09 Pulse Rhythm Regular 09/18/18 08:41 Respiratory Rate 18 09/18/18 16:09 Respiratory Effort Non-Labored 09/18/18 13:50 Respiratory Depth Normal 09/18/18 08:41 Respiratory Pattern Normal 09/18/18 08:41 Blood Pressure 132/81 09/18/18 16:09 Blood Pressure Mean 91 09/16/18 10:06 Blood Pressure Position Sitting 09/16/18 10:11 Pulse Oximetry 93 L 09/18/18 16:09 Oxygen Delivery Method Room Air 09/18/18 16:09 Oxygen Flow Rate 0 09/18/18 16:09 Pain Level 8 09/18/18 13:50 Comment 09/18/18 14:08 Intake & Output 09/17/18 09/18/18 09/18/18 23:59 11:59 23:59 Intake Total 4970 / 7970 2583.333 / 2823.333 240 / 2823.333 Output Total 1800 / 3150 Balance 3170 / 4820 2583.333 / 2823.333 240 / 2823.333 Intake: IV 2070 / 5070 1783.333 / 1783.333 Oral 2900 / 2900 800 / 1040 240 / 1040 Output: Urine 1800 / 3150 Other: Urine Color Yellow Urine Appearance Clear Clear Urine Odor Normal Comment pt gets up to void AD RENEE. pt voiding well. Stool Size Small Stool Characteristics Formed Brown Voiding Methods Toilet Completed studies during hospitalization [Text1]: Exam(s) 09/[address]:CT chest PE abd & pelvis w SYMPTOMS/DIAGNOSIS: CHEST PAIN, SHORTNESS OF BREATH, EPIGASTRIC AND RUQ ABD PAIN, ? PE/GB CT ANGIOGRAPHY CHEST: CT angiography was performed with multi slice acquisition and multi planar and 3D reconstruction. CT Angiography of the chest was performed with a bolus infusion of 100 cc's of Omnipaque 350. The thoracic aorta is of normal diameter with no evidence of dissection. No evidence of pulmonary embolic disease. No mediastinal or hilar adenopathy. No pleural effusion or pneumothorax. The lungs are generally clear and the tracheobronchial tree appears intact. ABDOMINAL AND PELVIC CT: CT examination of the abdomen and pelvis was performed following the thoracic CTA. The abdominal aorta and major branch vessels appear normal. There is hepatic steatosis. The liver is unremarkable in appearance. The pancreas is atrophic and shows multiple calcifications consistent with a severe chronic pancreatitis. Previously described presumed pancreatic pseudocyst noted on examination of 12/30/17 is again noted and has decreased somewhat in size in comparison with the previous examination. Moderate free intraperitoneal fluid is present which was not present on the previous examination. The adrenals and kidneys appear normal. No evidence of bowel obstruction. IUD noted in place in the uterus. CONCLUSION: 1. No evidence of pulmonary embolic disease. 2. Decreased size of presumed pancreatic pseudocyst which now measures roughly 8 x 4 cm in diameter on transaxial imaging. 3. Interval development of intraperitoneal fluid. 4. No evidence of bowel obstruction. Question of diffuse colonic wall thickening, colitis not excluded, please correlate clinically. Exam(s) a US:US abdomen SYMPTOMS/DIAGNOSIS: ELEVATED LFTS, PANCREATITIS ABDOMINAL ULTRASOUND: There is some increased echogenicity in the liver consistent with fatty infiltration. The gallbladder is contracted in this patient who is post prandial. The common duct caliber is 3 mm. There is some questionable dilatation of the duct of [place]. A complex cyst is noted adjacent to the pancreatic head on the right side and measures 10.7 x 6.8 x 8.6 cm and appears to contain solid components. This lesion is avascular and could I suppose represent a pancreatic pseudocyst. There is a question regarding echogenic region in the wall of the gallbladder fundus which may measure up to 9 x 5 x 9 mm and appears to be avascular. This area is difficult to evaluate in this patient who is not NPO. Labs on day of discharge: Labs from last 24 hours 09/18/18 09/18/18 09/18/18 06:50 06:50 06:50 WBC 4.09 L RBC 3.78 L Hgb 11.9 L Hct 36.3 MCV 96.0 H MCH 31.5 MCHC 32.8 RDW 14.1 Plt Count 291 MPV 10.2 Immature Gran % 0.7 Neutrophils % 45.1 Lymphocytes % 33.7 Monocytes % 18.3 Eosinophils % 1.7 Basophils % 0.5 Absolute Neutrophils 1.84 Absolute Lymphocytes 1.38 Absolute Monocytes 0.75 H Absolute Eosinophils 0.07 Absolute Basophils 0.02 Sodium 141 Potassium 4.1 Chloride 107 Carbon Dioxide 24.4 Anion Gap 9.6 BUN 3 L Creatinine 0.57 Estimated GFR/1.73 m2 >= 60.00 Glucose 128 H Calcium 8.3 L Magnesium 1.9 Total Bilirubin 0.2 Conjugated Bilirubin 0.11 AST 107 H ALT 96 H Alkaline Phosphatase 203 H Total Protein 5.8 L Albumin 2.8 L Lipase 135 Stool Campylobacter PCR Stool Salmonella PCR Stool Shigella PCR Shiga Toxin (PCR) 09/16/18 08:00 WBC RBC Hgb Hct MCV MCH MCHC RDW Plt Count MPV Immature Gran % Neutrophils % Lymphocytes % Monocytes % Eosinophils % Basophils % Absolute Neutrophils Absolute Lymphocytes Absolute Monocytes Absolute Eosinophils Absolute Basophils Sodium Potassium Chloride Carbon Dioxide Anion Gap BUN Creatinine Estimated GFR/1.73 m2 Glucose Calcium Magnesium Total Bilirubin Conjugated Bilirubin AST ALT Alkaline Phosphatase Total Protein Albumin Lipase Stool Campylobacter PCR See comments Stool Salmonella PCR See comments Stool Shigella PCR See comments Shiga Toxin (PCR) See comments Preliminary micro results at discharge 09/16/18 14:20 Blood Culture - Preliminary Blood NO GROWTH 48 HOURS 09/16/18 14:10 Blood Culture - Preliminary Blood NO GROWTH 48 HOURS [facility] Medical History Pancreatic pseudocyst (Chronic) Chronic pancreatitis (Chronic) Anxiety (Chronic) Withdrawal seizures (Suspected) History of DVT (deep vein thrombosis) (Chronic) Alcohol abuse (Chronic) Acute pancreatitis (Acute) Hemorrhagic pancreatitis (Resolved) DVT (deep venous thrombosis) (Inactive) Pancreatitis (Inactive) Surgical History H/O chest tube placement (Inactive) Social History Smoking/Tobacco Use Status: Current every day Tobacco Type: cigarettes Tobacco: How many years used: 21 Alcohol Intake: current Alcohol Intake frequency: 3 or more drinks per day Alcohol type: beer Drug use: Daily Substance use type: marijuana Details: has not drank in one week Do you feel safe at home: Yes Do you feel safe in your relationship?: Yes Additional Social history: Patient is and has 2 children. Moved here from [place] approximately 2 years ago. 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 Reports ongoing alcohol use, upwards of 7 or more 24 ounce beers daily, last used approximately 1 week or more ago. 30+-pack-year history of smoking. Currently reports marijuana use, but previously was a polysubstance abuser, including cocaine but denies any IVDA history.
== END 2018-09-18 18:49 | disposition home or self-care (01) | DRG 439 ==
LOC: ER 14:20 → MS 14:39
PROVIDERS: Admitting Provider Internal Medicine; Emergency Provider Student in an Organized Health Care Education/Training Program; Visit Provider Internal Medicine
DX: K85.20 Alcohol induced acute pancreatitis without necrosis or infection (principal); K86.3 Pseudocyst of pancreas; F10.239 Alcohol dependence with withdrawal, unspecified; R18.8 Other ascites; K52.9 Noninfective gastroenteritis and colitis, unspecified; R07.9 Chest pain, unspecified; K86.0 Alcohol-induced chronic pancreatitis; F41.9 Anxiety disorder, unspecified; Z86.718 Personal history of other venous thrombosis and embolism
CPT/HCPCS: 36415; 71275; 74177; 80053; 80076; 81025; 83690; 87040; 87505; 93005; 96361; 96365; 96366; 96375; 96376; 99222; 99232; 99239; 99285; J1650; 76700; 80320; 81003; 81015; 83605; 83630; 83735; 84484; 85025; 85610; 85730; 87324; 93010; J0696; J1200; J1885; J2060; J2405; J2765; J3010; J3490

== ENCOUNTER 2018-11-26 13:12 | Inpatient (IN) | payer MEDICAID, SELFPAY ==
[2018-11-26] VITALS (85 sets, daily range): BP systolic 90–152; BP diastolic 66–122; PULSE 69–136; RESP 12–34; TEMP 36.2–37.4; O2SAT 93–100
[2018-11-26] MEDS: LORazepam 2 MG/ML VIAL IVP ×4 (13:15→22:15)
[2018-11-26] MEDS: Normal Saline 1,000 ML 1000 ML IV (13:20)
--- NOTE | 2018-11-26 13:28 | DI.CT_ITS ---
SYMPTOMS/DIAGNOSIS: TRAUMA, LEFT PERIORBITAL ECCHYMOSIS, ALTERED CT BRAIN: Noncontrast examination. There is patient motion artifact and the examination was repeated. The ventricular system is normal in appearance. There is no evidence of an intracranial mass lesion. There is no evidence of a subdural or epidural hematoma. No focal areas of decreased attenuation are seen. IMPRESSION: Normal noncontrast cranial CT. The findings were discussed with the Emergency Department on the date of the examination.
--- NOTE | 2018-11-26 13:28 | DI.RAD_ITS ---
SYMPTOMS/DIAGNOSIS: TRAUMA, BRUISING, ETOH RIGHT HUMERUS: Two views. No acute fracture or dislocation is present.
--- NOTE | 2018-11-26 13:28 | ED.GENADUL_ITS ---
Discharge Plan Discharge Details Chief Complaint: ETOHWithdr Primary Care Provider: None,None ED Provider: Earl Guzman Home Meds and New Rx's Prescriptions: No Action oxycodone 5 mg tablet 5 mg PO Q4H PRN PRN (Reason: pain) Qty: 20 RF: 0 ciprofloxacin HCl 250 mg tablet 250 mg PO BID Qty: 2 RF: 0 lorazepam 1 mg tablet 1 mg PO TID PRN PRN (Reason: alcohol withdrawal) Qty: 12 RF: 0 melatonin 3 MG tablet 1 tab PO PRN PRNRF: 0 Medical Decision Making 1326 --38-year-old female with history of alcoholism, pancreatic pseudocyst, here with full body tremor, confusion, unsteadiness on her feet, having only had one beer today with typical sixpack today. Patient possibly had seizure today and does have some bruising to her face and arm. Suspect alcohol withdrawal. Suspect Warnicke's encephalopathy. Will initiate IV crystalloid bolus, banana bag with thiamine 100 mg IV, Ativan 2 mg IV. Consider acute life-threatening intracranial traumatic hemorrhage. Plan to obtain CT of the head. Consider fracture of right upper arm. Will obtain xray. --Patient reassessed and continues to have full body shaking despite Ativan. Will give Valium 5 mg IV. --Patient reassessed and shaking improved. She still has altered mental status. --CT head interpreted by radiology is negative. --X-ray of the arm reviewed and interpreted by me: No fx --Labs reviewed: Hyponatremia noted. Patient does appear hypovolemic. She received 1 L of normal saline. Hypokalemia noted. Will give 20 mEq IV. 1550 -- Consider severe hyponatremia as cause for her symptoms. I discussed case with hospitalist on-call Dr. Clark, plan to treat with hypertonic saline 3% - I will initiate 100 mL over 20 minutes IV and then follow with 100 mL over the next hour. Tylenol level and INR pending at time of admission. Care transition to Dr. Clark who will be admitting to the ICU. HPI General Mode of arrival: EMS . Date/Time Provider Initiated Documentation: 11/26/18 13:56 . Limitations to Documentation: altered mental status . Information obtained by: EMS . HPI Narrative: 38-year-old female with history of alcoholism, pancreatic pseudocyst, withdrawal seizures in the past, here with chief complaint of shaking. Patient arrives via EMS. Patient alert and oriented to person and place and year per EMS. She has been somewhat confused. History and review of systems is limited secondary to altered mental status. Patient notes that she typically drinks about a sixpack of beer per day. She drank a sixpack yesterday. Today she had one beer. She was feeling shaky and dizzy and unable to ambulate to the refrigerator today. Patient notes that she may have had a seizure. Patient states that she has chronic abdominal pain associated with her pseudocyst. Related Data Home Medications Medication Instructions Recorded Confirmed melatonin 1 tab PO PRN PRN 01/30/18 09/16/18 ciprofloxacin HCl 250 mg PO BID #2 tab 09/18/18 lorazepam 1 mg PO TID PRN PRN #12 tab 09/18/18 oxycodone 5 mg PO Q4H PRN PRN #20 tab 09/18/18 Previous Rx's Medication Instructions Recorded ciprofloxacin HCl 250 mg PO BID #2 tab 09/18/18 lorazepam 1 mg PO TID PRN PRN #12 tab 09/18/18 oxycodone 5 mg PO Q4H PRN PRN #20 tab 09/18/18 Allergies Allergy/AdvReac Type Severity Reaction Status Date / Time amoxicillin Allergy Unverified 09/16/18 10:37 codeine Allergy Unverified 09/16/18 10:37 General Stated Complaint: ETOHWithdr JAMEEL: 2 Review of Systems Review of Systems See HPI, ROS limited secondary to altered mental status patient denies chest pain PFSH Medical History Pancreatic pseudocyst (Chronic) Chronic pancreatitis (Chronic) Anxiety (Chronic) Withdrawal seizures (Suspected) History of DVT (deep vein thrombosis) (Chronic) Alcohol abuse (Chronic) Acute pancreatitis (Acute) Hemorrhagic pancreatitis (Resolved) DVT (deep venous thrombosis) (Inactive) Pancreatitis (Inactive) Surgical History H/O chest tube placement (Inactive) Social History Smoking/Tobacco Use Status: Current every day Tobacco Type: cigarettes Tobacco: How many years used: 21 Alcohol Intake: current Alcohol Intake frequency: 3 or more drinks per day Alcohol type: beer Drug use: Daily Substance use type: marijuana Details: has not drank in one week Do you feel safe at home: Yes Do you feel safe in your relationship?: Yes Additional Social history: Patient is and has 2 children. Moved here from [place] approximately 2 years ago. She is a [id number] mother. Reports ongoing alcohol use, upwards of 7 or more 24 ounce beers daily, last used approximately 1 week or more ago. 30+-pack-year history of smoking. Currently reports marijuana use, but previously was a polysubstance abuser, including cocaine but denies any IVDA history. Exam Const General: cooperative and no acute distress HENMT Head: no palpable skull fracture and periorbital ecchymosis (left) General nose exam: external nose normal Mouth: moist mucous membranes Throat: posterior oropharynx normal Eyes Conjunctivae: normal conjunctivae Sclera: normal sclerae Neck Neck: trachea midline and supple Resp Auscultation: clear to auscultation bilaterally, no rales, no rhonchi and no wheezes Cardio Jugular venous pressure: no JVD Rate: tachycardic Rhythm: regular rhythm GI Palpation: soft, not firm, no guarding, no masses, not rigid and tender in the epigastrum Skin General skin exam: no rashes or lesions noted Neuro General: alert, awake, oriented Patient Orientation: Person, Place and Time (year), moves all extremities and other (full body tremors) Speech: speech normal Motor: muscle tone normal throughout Extrem General: no edema Right upper extremity: shoulder/upper arm Details: tenderness and ecchymosis Psych Affect: anxious affect Course Vital Signs Temperature 36.6 C 11/26/18 13:16 Pulse 136 H 11/26/18 13:16 Respiratory Rate 22 11/26/18 13:16 Blood Pressure 152/116 H 11/26/18 13:16 Pulse Oximetry 98 11/26/18 13:16 Temperature 36.6 C 11/26/18 13:16 Temperature Source Skin 11/26/18 13:16 Pulse 136 H 11/26/18 13:16 Respiratory Rate 22 11/26/18 13:16 Blood Pressure 152/116 H 11/26/18 13:16 Blood Pressure Position Sitting 11/26/18 13:16 Pulse Oximetry 98 11/26/18 13:16 Oxygen Delivery Method Room Air 11/26/18 13:16 Oxygen Flow Rate 0 11/26/18 13:16 Comment 11/26/18 13:16 Critical Care Time Critical Care Time: Yes Total Critical Care Time: 60 Attestation: I spent greater than 60 minutes addressing the patient's immediate life threats
[2018-11-26 13:34] LABS: Abs Immature Grans 0.03 k/cumm (0.0-0.09); RBC Distribution Width 12.4 % (11.7-14.6)
[2018-11-26 13:53] LABS: ALT 75 U/L (12-78); AST 201 U/L (15-37); Albumin 3.3 g/dL (3.4-5.0); Alkaline Phosphatase 507 U/L (46-116); BUN 4 mg/dL (7-18); Bilirubin, Total 2.3 mg/dL (0.2-1.0); CREATININE 0.72 mg/dL (0.55-1.02); Calcium 8.7 mg/dL (8.5-10.1); Chloride 74 mmol/L (98-107); Glucose 155 mg/dL (70-100); Lipase 96 U/L (73-393); Magnesium 1.5 mg/dL (1.8-2.4)
[2018-11-26 13:58] LABS: Sodium 114 mmol/L (136-145)
[2018-11-26] MEDS: FAMOTIDINE 20 MG/50 ML BAG 100 MG IVPB (13:58)
[2018-11-26 14:13] LABS: ETHANOL BLOOD 30.3 mg/dL (<3)
[2018-11-26] MEDS: diazePAM 10 MG/2 ML SYR 5 MG IVP (14:13)
[2018-11-26 14:26] LABS: Absolute Lymphocyte Count 0.83 k/cumm (1.2-3.4); HCT 36.9 % (36.0-46.0); Mean Corpuscular Hemoglobin 31.8 pg (27.0-33.0); Mean Corpuscular Volume 83.9 fL (80-95); White Blood Cell Count 7.86 k/cumm (4.4-10.8)
[2018-11-26 14:27] LABS: Absolute Monocyte Count 0.58 k/cumm (0.11-0.7); Absolute Neutrophil Count 6.42 k/cumm (1.2-6.7); Immature Grans % 0.3; Lymphocytes % 10.6; Mean Platelet Volume 10.8 fL (8.0-11.0); Monocytes % 7.4; Neutrophils % 81.7; Platelet Count 41 x1000/uL (130-400)
[2018-11-26 14:28] LABS: Mean Corp. HGB Concentration 37.9 g/dL (32.0-36.0)
[2018-11-26] MEDS: MAGNESIUM SULFATE 8.12 MEQ, MULTIVITAMIN 10 ML, THIAMINE 100 MG, FOLIC ACID 1 MG in Nor... 168.867 MG IV (14:35)
[2018-11-26 15:03] LABS: Bilirubin Negative (Negative); Blood Small (Negative); Clarity Clear; Glucose Negative (Negative); Ketones 15 mg/dL (Negative); Leukocyte Esterase Small (Negative); Nitrite Negative (Negative); Specific Gravity <= 1.005 (1.005-1.025); Urobilinogen 0.2 EU/dL (Up TO 0.2)
[2018-11-26 15:10] LABS: *AMPHETAMINES SCREEN URINE Negative (Negative); *BARBITURATES SCREEN URINE Negative (Negative); *BENZODIAZEPINES SCREEN URINE Negative (Negative); Cannabinoids THC Negative (Negative); Cocaine Screen,Urine Negative (Negative); METHADONE URINE SCREEN Negative (Negative); OPIATES URINE SCREEN Negative (Negative)
[2018-11-26 15:14] LABS: Tricyclic Antidepressants Negative (Negative)
[2018-11-26 15:16] LABS: Bacteria Negative HPF (Negative); C & S Indicated? Yes; Casts Negative LPF (Negative); Crystals Negative HPF (Negative); Epithelial Cells Few HPF (Negative); Mucus Negative (Negative); WBC 20-50 HPF (0-5)
[2018-11-26] MEDS: POTASSIUM CHLORIDE 20 MEQ/100 ML BAG 50 MEQ IVPB (15:30)
[2018-11-26] MEDS: Ondansetron 4 MG/2 ML VIAL IVP (16:00)
--- NOTE | 2018-11-26 16:05 | HPE_ITS ---
Date of service: 11/26/18 Time of Service: 15:58 Assessment and Plan (1) Acute hyponatremia: Current visit: Yes Status: Acute I am concerned with severe hyponatremia given the patient's mental status changes and reported seizure activity in the setting of a previously normal sodium on September 18, 2018. Given these factors, I would classify her as severe acute hyponatremia which should be treated with hypertonic saline. This was discussed with Dr. Guzman who agreed and is initiated therapy. Plan is to sujey ssess sodium level after initial 100 mL of 3% hypertonic saline given as a bolus over 20 minutes, and additional 100 mL given over an hour. Based on this sodium at that point, we will treat with normal saline versus additional hypertonic saline. As far as an etiology, the patient was hypovolemic when she presented, likely related to vomiting and loose stools. She may also have an element of beer portal loreta exacerbating the hyponatremia. Some of her labs suggest possible cirrhosis, but her exam is not consistent with decompensated cirrhosis contributing to hyponatremia. (2) Withdrawal seizures: Current visit: No Status: Suspected The patient does have a documented history of alcoholic withdrawal seizures. It does appear she drinks more than her reports based her presentation with alcohol level 30. She does not appear to be acutely intoxicated, but part of her presentation could be related to an element of alcoholic encephalopathy given her history of chronic alcohol use disorder. She currently getting a banana bag. She received both lorazepam and diazepam so far, with good reported effect of 5 mg diazepam. My plan is to schedule a diazepam given her high risk of withdrawal seizures, and also dose the Lorazepam as needed per [facility] protocol. (3) Alcohol abuse: Current visit: No Status: Chronic Patient expresses interest in alcoholic rehab program. When her mental status improves, will review her options with help from case management. Medical therapy should also be offered. (4) Chronic pancreatitis: Current visit: No Status: Chronic Patient has epigastric pain and vomiting and loose stools, possibly consistent with her chronic pancreatitis. Her abdomen is tender, but not surgical. Her lipase is reassuring. If her epigastric pain is not improving or getting worse, I would get a CT of the abdomen. She may need pancreatic enzymes chronically. (5) Alcoholic hepatitis: Current visit: Yes Status: Acute Patient has LFT abnormalities consistent with alcoholic hepatitis. Most concerning are her elevated bilirubin, low albumin, and low platelets. This can be seen with cirrhosis, though her exam is not consistent with decompensated cirrhosis. Her INR is reassuring. We will follow her hepatic function tests. Added on acetaminophen level to assure ourselves that see admission toxicity is not also contributing. (6) Thrombocytopenia: Current visit: Yes Status: Chronic I think this is most likely a direct toxic effect of the alcohol use. She is at risk for cirrhosis, but as above I do not see this clinically. She is also at risk for B12 deficiency given poor diet. Will follow. (7) Smoker: Current visit: Yes Status: Acute Nicotine patch as needed, dressed desire to quit when mental status improves. (8) DVT prophylaxis: Current visit: No Status: Acute I do not feel comfortable with heparin with the low platelets, will use SCDs despite her high risk with history of DVT reported. The platelets to improve we will start low molecular weight heparin at that point. (9) Discharge planning issues: Current visit: Yes Status: Acute Patient has been admitted to the ICU. She is full code. History of Present Illness Chief Complaint: shaking, confusion, vomiting Narrative: 38 yo F with alcohol use disorder with dependance who started vomiting about 9am this morning. Vomiting followed by abdominal pain on left side across upper abdomen, similar to pain she has had with pancreatitis in the past. Since then she has felt intermittently hot and cold and had at least 4 episodes of what she describes as seizures. She describes shaking all over that is constant but worse in episodes lasting 10 minutes or so. It doesn't appear she lost conciousness completely, however, as she remembers the episodes. She has also been unsteady on her feet to the point that it is difficult to walk. No focal weakness, but her legs give out. She usually drinks a 6 pack of PBR a day, but was only able to drink one beer today this morning. She states she last ate food about 3 days ago. She has had multiple episodes of withdrawal seizures in the past. She previously took valium for anxiety but hasn't taken this or other psychiatric medications for the past year. of note, history per patient was at times not consistent or logically coherent due to mental status Review of Systems Review of Systems As per HPI. Additionally, patient reports about a 10 pound weight loss over the past month or so. No headaches. She does feel like her vision is blurry at times and sees double, but this is not predictably reproduced. No ear pain or discharge. No epistaxis. No mouth sores. Some pain in the back of the neck, but normal neck movement. She describes a cough, but coughs only very irregularly during evaluation. No hemoptysis. No shortness of breath. No chest pain. She does have pain across her abdomen as per HPI. Pain is constant. No blood or coffee grounds in emesis. No blood in the stool or melena. She does have loose stools. No vaginal bleeding or discharge. She has bruises all over her body from falls, but no other rashes or skin lesions. She does have some difficulty initiating urination, but no dysuria or hematuria. [facility] Medical History Pancreatic pseudocyst (Chronic) Chronic pancreatitis (Chronic) Anxiety (Chronic) Withdrawal seizures (Suspected) History of DVT (deep vein thrombosis) (Chronic) Alcohol abuse (Chronic) Acute pancreatitis (Acute) Hemorrhagic pancreatitis (Resolved) DVT (deep venous thrombosis) (Inactive) Pancreatitis (Inactive) Surgical History H/O LEEP (Acute) H/O chest tube placement (Inactive) Social History Smoking/Tobacco Use Status: Current every day Tobacco Type: cigarettes Tobacco: How many years used: 21 Alcohol Intake: current Alcohol Intake frequency: 3 or more drinks per day Alcohol type: beer Drug use: Never Substance use type: marijuana Details: recorded h/o MJ and drug use but patient denies today Do you feel safe at home: Yes Do you feel safe in your relationship?: Yes Additional Social history: Patient is and has 2 children ages 13 and 14. Moved here from [place] approximately 2 years ago, now lives in [place]. She is a [id number] mother. Reports ongoing alcohol use. 30+-pack-year history of smoking. Meds Home Medications Medication Instructions Recorded Confirmed Type melatonin 1 tab PO PRN PRN 01/30/18 09/16/18 History diphenhydramine HCl [Benadryl] PO PRN 11/26/18 History Allergies Allergy/AdvReac Type Severity Reaction Status Date / Time amoxicillin Allergy Unverified 11/26/18 16:11 codeine Allergy Unverified 11/26/18 16:11 Exam Narrative Exam Narrative: General: Alert, mildly anxious, oriented x3 (but states she was not oriented when she first presented). thought process not coherent at times, but generally appropriate. HEENT: Dark purple bruise left lateral orbit. No other bruises or lacerations on the skull or face. No discharge from nose or ears. Pupils equal round reactive to light extraocular motions intact, no pathologic nystagmus. Mucous membranes moist (after bolus in the emergency room), oropharynx benign no lesions. Neck is supple with no lymphadenopathy or other masses. Lung sounds initially coarse, clear with cough bilaterally. No wheezes or rales. Normal effort. Heart is regular rate and rhythm with no murmurs gallops or rubs. Abdomen is active bowel sounds, soft, but diffusely tender across the epigastrium, not tender in lower abdomen. No large bruises or pains across abdomen. Extremities are warm, no cyanosis, clubbing, or edema. Legs are not tender to palpation. No joint redness or swelling. Neurologic: Cranial nerves grossly intact. Diffuse mild tremor most notable in hands. No asterixis. Moving all 4 extremities with grossly normal strength and sensation light touch. No clonus or hyperreflexia. Normal speech. Skin: Many bruises and excoriations as above, most notable on arms and legs. Results CT head: Normal noncontrast cranial CT x-ray right humerus: No acute fracture dislocation Imaging Additional studies: NSR, nl intervals, no ischemic changes EKG: image reviewed Labs : 11/26/18 13:22 11/26/18 13:22 Laboratory Results - last 24 hr 11/26/18 11/26/18 11/26/18 13:22 13:22 13:22 WBC 7.86 RBC 4.40 Hgb 14.0 Hct 36.9 MCV 83.9 MCH 31.8 MCHC 37.9 H RDW 12.4 Plt Count 41 L MPV 10.8 Immature Gran % 0.3 Neutrophils % 81.7 Lymphocytes % 10.6 Monocytes % 7.4 Eosinophils % 0.0 Basophils % 0.0 Absolute Neutrophils 6.42 Absolute Lymphocytes 0.83 L Absolute Monocytes 0.58 Absolute Eosinophils 0.00 Absolute Basophils 0.00 Sodium 114 L* Potassium 3.0 L Chloride 74 L Carbon Dioxide 24.0 Anion Gap 16.0 H BUN 4 L Creatinine 0.72 Estimated GFR/1.73 m2 >= 60.00 Glucose 155 H Calcium 8.7 Magnesium 1.5 L Total Bilirubin 2.3 H AST 201 H ALT 75 Alkaline Phosphatase 507 H Total Protein 7.0 Albumin 3.3 L Lipase 96 Urine Color Urine Clarity Urine pH Ur Specific Sheridan Urine Protein Urine Ketones Urine Blood Urine Nitrite Urine Bilirubin Urine Urobilinogen Ur Leukocyte Esterase Urine RBC Urine WBC Ur Epithelial Cells Urine Crystals Urine Bacteria Urine Casts Urine Mucus Ur Culture Indicated? Urine Glucose Urine Opiates Screen Urine Methadone Screen Ur Barbiturates Screen Ur Tricyclics Screen Ur Amphetamines Screen U Benzodiazepines Scrn Urine Cocaine Screen Ur THC Screen Ethyl Alcohol 30.3 11/26/18 11/26/18 14:50 14:50 WBC RBC Hgb Hct MCV MCH MCHC RDW Plt Count MPV Immature Gran % Neutrophils % Lymphocytes % Monocytes % Eosinophils % Basophils % Absolute Neutrophils Absolute Lymphocytes Absolute Monocytes Absolute Eosinophils Absolute Basophils Sodium Potassium Chloride Carbon Dioxide Anion Gap BUN Creatinine Estimated GFR/1.73 m2 Glucose Calcium Magnesium Total Bilirubin AST ALT Alkaline Phosphatase Total Protein Albumin Lipase Urine Color Yellow Urine Clarity Clear Urine pH 7.0 Ur Specific Sheridan <= 1.005 Urine Protein 30 H Urine Ketones 15 H Urine Blood Small H Urine Nitrite Negative Urine Bilirubin Negative Urine Urobilinogen 0.2 Ur Leukocyte Esterase Small H Urine RBC 5-10 H Urine WBC 20-50 Ur Epithelial Cells Few Urine Crystals Negative Urine Bacteria Negative Urine Casts Negative Urine Mucus Negative Ur Culture Indicated? Yes Urine Glucose Negative Urine Opiates Screen Negative Urine Methadone Screen Negative Ur Barbiturates Screen Negative Ur Tricyclics Screen Negative Ur Amphetamines Screen Negative U Benzodiazepines Scrn Negative Urine Cocaine Screen Negative Ur THC Screen Negative Ethyl Alcohol Last Vital Signs Temp 36.6 C 11/26/18 13:16 Pulse 119 H 11/26/18 14:16 Resp 23 11/26/18 14:20 BP 133/77 11/26/18 14:16 Pulse Ox 98 11/26/18 14:20
[2018-11-26] MEDS: SODIUM CHLORIDE 3% 500 ML 30 ML IV (16:06)
[2018-11-26 16:18] LABS: INR 1.1 (0.9-1.1); Prothrombin Time 11.3 sec (9.3-11.0)
[2018-11-26 16:32] LABS: Acetaminophen < 2 ug/mL (10-30)
[2018-11-26] MEDS: diazePAM 10 MG/2 ML SYR (16:43)
--- NOTE | 2018-11-26 16:47 | NUR.NOTE ---
pt is anticipating admit to ICU .Nursing Note: she is restless ahe just recieved 5 mg valium IV per verbal order of Dr Liz. she has many bruises on her right arm and both legs . she states that she has been falling alot at home and just this morning had three seizures . she denies and abuse at home
[2018-11-26 18:36] LABS: Sodium 123 mmol/L (136-145)
[2018-11-26] MEDS: MAGNESIUM SULFATE 2 GM/50 ML BAG IVPB (18:43)
[2018-11-26] MEDS: Normal Saline Flush 10 ML SYR IVP ×3 (18:49→23:56)
[2018-11-26] MEDS: Pantoprazole 40 MG VIAL IVP (18:52)
[2018-11-26] MEDS: Nicotine 21 MG/24 HR PATCH TD (19:03)
[2018-11-26 21:32] LABS: BUN 5 mg/dL (7-18); CO2 24.2 mmol/L (21.0-32.0); CREATININE 0.52 mg/dL (0.55-1.02); Calcium 7.7 mg/dL (8.5-10.1); Chloride 89 mmol/L (98-107); Glucose 105 mg/dL (70-100)
[2018-11-26] MEDS: Normal Saline 500 ML 30 ML IV (21:32)
[2018-11-26 21:33] LABS: Anion Gap 13.8 mmol/L (3-11); Potassium 2.7 mmol/L (3.5-5.1); Sodium 127 mmol/L (136-145)
[2018-11-26 22:06] LABS: PHOSPHORUS 2.8 mg/dL (2.6-4.7)
[2018-11-26] MEDS: POTASSIUM CHLORIDE 10 MEQ/100 ML BAG 100 MEQ IVPB (22:57)
[2018-11-26] MEDS: diazePAM 10 MG/2 ML SYR IV (23:57)
[2018-11-27] VITALS (43 sets, daily range): BP systolic 113–139; BP diastolic 64–101; PULSE 94–146; RESP 18–34; TEMP 37.1–37.9; O2SAT 93–99
[2018-11-27] MEDS: POTASSIUM CHLORIDE 10 MEQ/100 ML BAG 100 MEQ IVPB ×3 (00:22→08:17)
[2018-11-27] MEDS: LORazepam 2 MG/ML VIAL IVP ×3 (02:21→10:01)
[2018-11-27] MEDS: Normal Saline Flush 10 ML SYR IVP ×4 (05:39→23:31)
[2018-11-27 07:14] LABS: Abs Immature Grans 0.03 k/cumm (0.0-0.09); Absolute Eosinophil Count 0.01 k/cumm (0.0-0.7); Absolute Lymphocyte Count 0.64 k/cumm (1.2-3.4); Absolute Monocyte Count 0.44 k/cumm (0.11-0.7); Absolute Neutrophil Count 4.98 k/cumm (1.2-6.7); Eosinophils % 0.2; HCT 31.9 % (36.0-46.0); HGB 11.5 g/dL (12.0-15.5); Immature Grans % 0.5; Lymphocytes % 10.5; Mean Corp. HGB Concentration 36.1 g/dL (32.0-36.0); Mean Corpuscular Hemoglobin 31.7 pg (27.0-33.0); Mean Corpuscular Volume 87.9 fL (80-95); Mean Platelet Volume 11.5 fL (8.0-11.0); Monocytes % 7.2; Neutrophils % 81.6; Platelet Count 43 x1000/uL (130-400); RBC 3.63 m/cumm (4.00-5.20); RBC Distribution Width 12.8 % (11.7-14.6)
[2018-11-27 07:22] LABS: ALT 63 U/L (12-78); AST 115 U/L (15-37); Albumin 2.7 g/dL (3.4-5.0); Alkaline Phosphatase 394 U/L (46-116); Anion Gap 12.6 mmol/L (3-11); BUN 6 mg/dL (7-18); Bilirubin, Total 1.3 mg/dL (0.2-1.0); CO2 24.4 mmol/L (21.0-32.0); CREATININE 0.54 mg/dL (0.55-1.02); Calcium 7.8 mg/dL (8.5-10.1); Chloride 91 mmol/L (98-107); Glucose 116 mg/dL (70-100); Magnesium 2.2 mg/dL (1.8-2.4); Sodium 128 mmol/L (136-145); Total Protein 5.9 g/dL (6.4-8.2)
[2018-11-27 07:24] LABS: Potassium 2.9 mmol/L (3.5-5.1)
--- NOTE | 2018-11-27 07:44 | PDOC.CMIN ---
- If Service Date Differs Date of service: 11/27/18 Time of Service: 07:45 Care Management Initial Assess REASON FOR HOSPITALIZATION:: acute hyponatremia, alcohol withdrawal seizures, chronic pancreatitis PAST MEDICAL HISTORY/PAST SURGICAL HISTORY:: Medical History: Pancreatic pseudocyst (Chronic). Chronic pancreatitis (Chronic). Anxiety (Chronic). Withdrawal seizures (Suspected). History of DVT (deep vein thrombosis) (Chronic). Alcohol abuse (Chronic). Acute pancreatitis (Acute). Hemorrhagic pancreatitis (Resolved). DVT (deep venous thrombosis) (Inactive). Pancreatitis (Inactive). Surgical History. H/O LEEP (Acute). H/O chest tube placement (Inactive) PREVIOUS FUNCTIONAL STATUS/SOCIAL/FAMILY SUPPORTS:: Laina lives with her and 2 daughters ages 13 and 14 in a mobile home in [place]. She is not currently employed. Laina states that she has only been in the area for a year and a half, having relocated from [place]. She is independent with ADLs but states she has had some difficulties with ambulation due to heavy drinking. CURRENT FUNCTIONAL STATUS:: Laina was lying in bed, appearing sleepy when CM came to visit. She agreed to answering some questions. Laina shared that she has a long history of alcoholism. When asked if she has been in any programs to achieve sobriety, she agreed that she has. She states that she has tried everything. She stated that she is on a waiting list for a 6 month rehab program in [place] but was not able to identify the name of the facility or other details. CM noted multiple bruises on Laina's arms and legs and asked if Laina had fallen at home. She responded that she has been drinking heavily and running into things all over the place. She added it's not him that's hitting me. Just ask the girls, they'll tell you; they are there all of the time. ADVANCE DIRECTIVES:: None on file Has patient been provided with information about the portal?: No Did the patient sign up for the portal?: No CODE STATUS:: Full Code INSURANCE COVERAGE / FINANCIAL ISSUES:: Medicaid Vt CURRENT HOME/COMMUNITY SERVICES/EQUIPMENT:: None currently PRIMARY CARE PHYSICIAN:: none POTENTIAL DISCHARGE NEEDS:: Possible program for alcohol detoxification, follow up with a new PCP PATIENT/FAMILY EDUCATION NEEDS:: Discharge plan, limitations,follow up plan of care, Ask Me Three. ANTICIPATED BARRIERS TO DISCHARGE:: None identified TRANSPORTATION:: via private automobile with family when ready. PLAN:: Laina is in the ICU receiving treatment for alcohol withdrawal and severe hyponatremia. She would likely bgenefit from substance abuse rehab if willing to go. CM provided her with options for treatment including [facility], [facility], [facility] and others. CM will continue to provide support to patient, family and discharge planning.
[2018-11-27] MEDS: diazePAM 10 MG/2 ML SYR 5 MG IVP ×3 (08:16→23:30)
--- NOTE | 2018-11-27 09:30 | DI.CT_ITS ---
SYMPTOMS/DIAGNOSIS: UPPER ABDOMINAL PAIN, HX PANCREATIC PSEUDOCYST, HX CHRONIC PANCREATITIS CT OF THE ABDOMEN: The study was carried out with an intravenous administration of 100 cc's of Omnipaque 350 and ingestion of dilute Omnipaque. Comparison is made with the prior study of 12/30/17. Again demonstrated is a very large mass apparently arising from the region of the pancreatic head and impinging on the lavonne hepatis and liver. There are some faint increased regions of increased density within the mass today which are suspicious for hemorrhage. Again noted is a large fatty liver. The gallbladder appears intact. No gallstones are seen. Diffuse pancreatic atrophy is demonstrated. There are numerous calcifications and there is ductal prominence. The findings are essentially unchanged when compared with the previous study. The spleen is intact. The kidneys and adrenals are intact. There is no evidence of bowel obstruction. There is no evidence of free fluid or free air in the intraperitoneal space. SUMMARY: When compared with the previous study of 12/30/17, again noted is a large cystic mass most likely originating from the head of the pancreas and representing a pseudocyst. There has been no apparent change in the size of this lesion. Today's examination reveals some regions of increased absorption within this mass which may well represent hemorrhage. The examination is otherwise unchanged.
[2018-11-27] MEDS: Omnipaque 350 MG/ML 100 ML BTL IJ ×2 (09:39→14:45)
[2018-11-27] MEDS: POTASSIUM CHLORIDE 10 MEQ/100 ML BAG 50 MEQ IVPB ×3 (10:29→17:14)
[2018-11-27 11:14] LABS: D-Dimer 1194 ng/mlFEU (<500)
--- NOTE | 2018-11-27 12:21 | PHARADMIT ---
Addendum entered by Faina Phipps 11/28/18 15:46: Pharmacy Note Subjective MD note mentions having pt's pseudocyst drained once other acute problems have resolved Objective Tmax-37.6 other VS okay Na-135(up) K+3.2 Cl-97 plt-72(up) CIWA-11 AST-125(up) ALT-83(up) Assessment cefepime started this morning for pneumonia KCl ordered 20 mEq BID; diazepam discontinued, one time dose of acetaminophen given, ondansetron discontinued Plan continue to watch VS, labs and for med changes Original Note: Admission Pharmacy Clinical Review Code Status Full Code Current Weight 53.7 kg Renally Cleared and Narrow Therapeutic Index Meds CrCl ~79.64 QTc Value / Action Taken QTc 495; meds ok BP Control, Fever 131/99, afebrile Electrolytes reviewed NE 127, K 3.3 (up from 2.7), Mg 2.2 (up from 1.5) DVT Prophylaxis n/a Opiate Usage / Scheduled Bowel Regimen Ordered n/a Plt/SCr for Heparin / Enoxaparin Plt 43; Scr 0.48 -- None due to low plt count INR for Warfarin n/a H/H stable, WBC/Bands H/H 11.5/31.9 Antibiotic appropriateness n/a Cultures and Sensitivities n/a Surgical ABX d/c within 24 hr n/a DM control / Insulin Dosing n/a Heart Failure (Check EF%) (WYATT's, B-Block, Diuretics) none IV to PO Switch n/a Home Meds Reviewed Yes Home Meds Not Ordered diphenhydramine and melatonin PRN sleep Comments Hyponatremia, low platelets, thrombocytopenia due to alcohol use -- continue to monitor
[2018-11-27 12:24] LABS: Anion Gap 12.1 mmol/L (3-11); BUN 5 mg/dL (7-18); CO2 24.9 mmol/L (21.0-32.0); CREATININE 0.48 mg/dL (0.55-1.02); Calcium 8.3 mg/dL (8.5-10.1); Chloride 90 mmol/L (98-107); Glucose 114 mg/dL (70-100); Potassium 3.3 mmol/L (3.5-5.1); Sodium 127 mmol/L (136-145)
--- NOTE | 2018-11-27 14:06 | W.PM.PROGNOT ---
Date of Service Date of service: 11/27/18 Time of Service: 14:07 Assessment and Plan (1) Acute hyponatremia: Current visit: Yes Status: Acute Her sodium level has improved, out of the critical range but still low. Etiology still to be explained. I am most inclined to think this is a complication of her alcohol abuse and perhaps due to GI and/or renal losses and poor oral intake versus SIADH related to pancreatic pseudocyst? She does not appear to be fluid overloaded at this point. Rather, I think she is probably still fluid deficit. No indication of third spacing yet. I do not think we need to put her on a fluid restriction at this point. I am not going to continue with hypertonic saline but will continue with LR (with potassium). Continue to monitor electrolytes, urine output. Check morning cortisol, TSH and free T4. (2) Thrombocytopenia: Current visit: Yes Status: Chronic Etiology may be related to alcohol induced marrow toxicity, sequestration although CT scan does not show cirrhosis or significant splenomegaly, DIC, and the latter is particularly concerning with increased d-dimer. I am checking blood cultures. Checking haptoglobin for any indication of hemolysis, fibrinogen has been sent out. She does have persistent tachycardia and some vague chest pain complaints. Pulmonary embolism does not seem likely but she does have a history of DVT. CT angiogram has been ordered but not yet performed. I am continuing to withhold anticoagulation, unless CT angiography positive for PE. (3) Altered mental state: Current visit: Yes Status: Acute She is never had a definite seizure and I doubt this is a postictal manifestation. Her sodium is now in a range that I would not expect to have cognitive symptoms. She is getting frequent benzodiazepines for alcohol withdrawal, which may be contributing to confusion and sedation. I do not know what her baseline mental status is, and whether or not there is some cognitive impairment from her alcohol abuse. Continue to address her metabolic problems. She is not running a fever and has not been complaining of headache; at this point I do not think an LP is indicated. (4) Hypokalemia: Current visit: Yes Status: Acute I suspect this is due to GI and/or renal loss. Replace intravenously given nausea. Continue to follow her potassium level. (5) Alcoholic hepatitis: Current visit: Yes Status: Acute Transaminase levels are trending down. Continue to monitor and give IV hydration. (6) Pancreatic pseudocyst: Current visit: No Status: Chronic No apparent change in the size of the pseudocyst compared to CT done almost 1 year ago. Now has characteristics on CT imaging of possible internal hemorrhaging. Call placed to [facility] to discuss whether or not anything should be done, such as percutaneous drainage. Awaiting callback. (7) Anxiety: Current visit: No Status: Chronic May have anxiety independent from alcohol withdrawal. Continue scheduled benzodiazepine and as needed. (8) Alcohol abuse: Current visit: No Status: Chronic Continue with scheduled benzodiazepine and as needed. I inquired if she is at all interested in residential treatment for alcohol abuse and she responded quite vaguely. Continue to inquire as she improves from her acute illnesses. (9) DVT prophylaxis: Current visit: No Status: Acute Hold on anticoagulation given thrombocytopenia unless CT angiogram positive for PE. (10) Smoker: Current visit: Yes Status: Acute Nicotine replacement offered. Subjective Interval history since last seen: More alert, to the point where she recognizes her confusion. Still having some upper abdominal discomfort and nausea. Has not vomited. Has not developed any fever. Received hypertonic saline last evening, sodium in the 120s and hypertonic saline discontinued. Now on lactated Ringer's. Tolerating some clear liquids. Worried that the pseudocyst might be causing symptoms. Acknowledges that she has been drinking very heavily recently with multiple falls and bruises. Denies any spontaneous nosebleeds. Has not had any recent vaginal bleeding (has Mirena IUD). CT of the abdomen showed continued presence of a very large pseudocyst with internal contrast compatible with hemorrhage. Her platelet count has not continued to drop but still remains low. Urine output is picking up. She does not have any respiratory complaints. She is intermittently lethargic, tremulous. She has not had any obvious seizures. She is receiving scheduled diazepam and as needed lorazepam for alcohol withdrawal symptoms. Exam Narrative Exam Narrative: Lethargic but arousable. Has difficulty focusing and following some commands. T-max 37 6, pulse 1 teens to 130s sinus tachycardia on monitor. Blood pressure is 120s to 130s systolic. No facial asymmetry. When she does speak, no dysarthria in her responses although lethargic, fit the context of the conversation. No JVD. Lungs with initial diminished breath sounds at the bases then clear no wheeze on the right, occasional coarse breath sounds left mid lung field no definite crackles, no rub. Tachycardic with no heart murmur heard no S3 or S4. Bowel sounds present but somewhat diminished. Tender diffusely in the epigastric right upper quadrant but not left upper quadrant. No guarding or rebound. Liver edge is about 5 cm below costal margin. I do not appreciate any ascites. Extremities warm good distal pulses no edema. She has bruising on the left eyebrow, left periorbital area, right posterior arm, left forearm, both knees with abrasion on the right, left upper thigh area no petechiae. She has spontaneous movement of all extremities with mild intention tremor. No rest tremor. She sits up by herself. I did not observe her walk. Objective Objective Clinical Data: Abnormal lab results 11/26/18 11/26/18 11/26/18 Range/Units 13:22 13:22 13:22 RBC (4.00-5.20) m/cumm Hgb (12.0-15.5) g/dL Hct (36.0-46.0) % MCHC 37.9 H (32.0-36.0) g/dL Plt Count 41 L (130-400) x1000/uL MPV (8.0-11.0) fL Absolute Lymphocytes 0.83 L (1.2-3.4) k/cumm PT 11.3 H (9.3-11.0) sec D-Dimer (<500) ng/mlFEU Sodium (136-145) mmol/L Potassium (3.5-5.1) mmol/L Chloride (98-107) mmol/L Anion Gap (3-11) mmol/L BUN (7-18) mg/dL Creatinine (0.55-1.02) mg/dL Glucose (70-100) mg/dL Calcium (8.5-10.1) mg/dL Total Bilirubin (0.2-1.0) mg/dL AST (15-37) U/L Alkaline Phosphatase (46-116) U/L Total Protein (6.4-8.2) g/dL Albumin (3.4-5.0) g/dL Urine Protein (Negative) mg/dL Urine Ketones (Negative) mg/dL Urine Blood (Negative) Ur Leukocyte Esterase (Negative) Urine RBC (0-2) Acetaminophen < 2 L (10-30) ug/mL 11/26/18 11/26/18 11/26/18 Range/Units 14:50 18:05 21:17 RBC (4.00-5.20) m/cumm Hgb (12.0-15.5) g/dL Hct (36.0-46.0) % MCHC (32.0-36.0) g/dL Plt Count (130-400) x1000/uL MPV (8.0-11.0) fL Absolute Lymphocytes (1.2-3.4) k/cumm PT (9.3-11.0) sec D-Dimer (<500) ng/mlFEU Sodium 123 L* 127 L (136-145) mmol/L Potassium 2.7 L* (3.5-5.1) mmol/L Chloride 89 L (98-107) mmol/L Anion Gap 13.8 H (3-11) mmol/L BUN 5 L (7-18) mg/dL Creatinine 0.52 L (0.55-1.02) mg/dL Glucose 105 H D (70-100) mg/dL Calcium 7.7 L (8.5-10.1) mg/dL Total Bilirubin (0.2-1.0) mg/dL AST (15-37) U/L Alkaline Phosphatase (46-116) U/L Total Protein (6.4-8.2) g/dL Albumin (3.4-5.0) g/dL Urine Protein 30 H (Negative) mg/dL Urine Ketones 15 H (Negative) mg/dL Urine Blood Small H (Negative) Ur Leukocyte Esterase Small H (Negative) Urine RBC 5-10 H (0-2) Acetaminophen (10-30) ug/mL 11/27/18 11/27/18 11/27/18 Range/Units 06:40 06:40 10:20 RBC 3.63 L (4.00-5.20) m/cumm Hgb 11.5 L D (12.0-15.5) g/dL Hct 31.9 L (36.0-46.0) % MCHC 36.1 H (32.0-36.0) g/dL Plt Count 43 L (130-400) x1000/uL MPV 11.5 H (8.0-11.0) fL Absolute Lymphocytes 0.64 L (1.2-3.4) k/cumm PT (9.3-11.0) sec D-Dimer 1194 H (<500) ng/mlFEU Sodium 128 L (136-145) mmol/L Potassium 2.9 L* (3.5-5.1) mmol/L Chloride 91 L (98-107) mmol/L Anion Gap 12.6 H (3-11) mmol/L BUN 6 L (7-18) mg/dL Creatinine 0.54 L (0.55-1.02) mg/dL Glucose 116 H (70-100) mg/dL Calcium 7.8 L (8.5-10.1) mg/dL Total Bilirubin 1.3 H (0.2-1.0) mg/dL AST 115 H (15-37) U/L Alkaline Phosphatase 394 H (46-116) U/L Total Protein 5.9 L (6.4-8.2) g/dL Albumin 2.7 L (3.4-5.0) g/dL Urine Protein (Negative) mg/dL Urine Ketones (Negative) mg/dL Urine Blood (Negative) Ur Leukocyte Esterase (Negative) Urine RBC (0-2) Acetaminophen (10-30) ug/mL 11/27/18 Range/Units 12:01 RBC (4.00-5.20) m/cumm Hgb (12.0-15.5) g/dL Hct (36.0-46.0) % MCHC (32.0-36.0) g/dL Plt Count (130-400) x1000/uL MPV (8.0-11.0) fL Absolute Lymphocytes (1.2-3.4) k/cumm PT (9.3-11.0) sec D-Dimer (<500) ng/mlFEU Sodium 127 L (136-145) mmol/L Potassium 3.3 L (3.5-5.1) mmol/L Chloride 90 L (98-107) mmol/L Anion Gap 12.1 H (3-11) mmol/L BUN 5 L (7-18) mg/dL Creatinine 0.48 L (0.55-1.02) mg/dL Glucose 114 H (70-100) mg/dL Calcium 8.3 L (8.5-10.1) mg/dL Total Bilirubin (0.2-1.0) mg/dL AST (15-37) U/L Alkaline Phosphatase (46-116) U/L Total Protein (6.4-8.2) g/dL Albumin (3.4-5.0) g/dL Urine Protein (Negative) mg/dL Urine Ketones (Negative) mg/dL Urine Blood (Negative) Ur Leukocyte Esterase (Negative) Urine RBC (0-2) Acetaminophen (10-30) ug/mL Vital Signs Temperature 37.3 C 11/27/18 12:00 Temperature Source Temporal Artery Scan 11/27/18 12:00 Pulse 133 H 11/27/18 12:01 Pulse 146 H 11/27/18 12:01 Respiratory Rate 20 11/27/18 12:01 Respiratory Effort 11/27/18 12:00 Respiratory Depth Normal 11/27/18 12:00 Respiratory Pattern Normal 11/27/18 12:00 Blood Pressure 131/99 H 11/27/18 12:01 Blood Pressure Mean 108 11/27/18 12:01 Blood Pressure Position Supine 11/27/18 04:43 Pulse Oximetry 97 11/27/18 07:01 Oxygen Delivery Method Room Air 11/27/18 12:00 Oxygen Flow Rate 0 11/27/18 12:00 Pain Level 7 11/27/18 04:43 Comment 11/26/18 13:16 Intake & Output 11/26/18 11/27/18 11/27/18 23:59 11:59 23:59 Intake Total 2535.7 / 2535.7 693.667 / 793.667 100 / 793.667 Output Total 750 / 750 600 / 600 Balance 1785.7 / 1785.7 93.667 / 193.667 100 / 193.667 Weight 54.3 kg 53.7 kg Intake: IV 2535.7 / 2535.7 653.667 / 753.667 100 / 753.667 Oral 40 / 40 Output: Urine 750 / 750 600 / 600 Other: Urine Color Yellow Dark Estefany Urine Appearance Clear Clear Urine Odor None None Comment Pt. stated she had urgency, sat on the commode, but has not voided any urine. Pt. has not voided any urine this shift.reports urinary incontinence with coughing Voiding Methods Bedside Commode Bedside Commode Laboratory Results WBC 6.10 k/cumm (4.4-10.8) 11/27/18 06:40 RBC 3.63 m/cumm (4.00-5.20) L 11/27/18 06:40 Hgb 11.5 g/dL (12.0-15.5) L D 11/27/18 06:40 Hct 31.9 % (36.0-46.0) L 11/27/18 06:40 MCV 87.9 fL (80-95) D 11/27/18 06:40 MCH 31.7 pg (27.0-33.0) 11/27/18 06:40 MCHC 36.1 g/dL (32.0-36.0) H 11/27/18 06:40 RDW 12.8 % (11.7-14.6) 11/27/18 06:40 Plt Count 43 x1000/uL (130-400) L 11/27/18 06:40 MPV 11.5 fL (8.0-11.0) H 11/27/18 06:40 Immature Gran % 0.5 11/27/18 06:40 Neutrophils % 81.6 11/27/18 06:40 Lymphocytes % 10.5 11/27/18 06:40 Monocytes % 7.2 11/27/18 06:40 Eosinophils % 0.2 11/27/18 06:40 Basophils % 0.0 11/27/18 06:40 Absolute Neutrophils 4.98 k/cumm (1.2-6.7) 11/27/18 06:40 Absolute Lymphocytes 0.64 k/cumm (1.2-3.4) L 11/27/18 06:40 Absolute Monocytes 0.44 k/cumm (0.11-0.7) 11/27/18 06:40 Absolute Eosinophils 0.01 k/cumm (0.0-0.7) 11/27/18 06:40 Absolute Basophils 0.00 k/cumm (0.0-0.2) 11/27/18 06:40 PT 11.3 sec (9.3-11.0) H 11/26/18 13:22 INR 1.1 (0.9-1.1) 11/26/18 13:22 D-Dimer 1194 ng/mlFEU (<500) H 11/27/18 10:20 Sodium 127 mmol/L (136-145) L 11/27/18 12:01 Potassium 3.3 mmol/L (3.5-5.1) L 11/27/18 12:01 Chloride 90 mmol/L (98-107) L 11/27/18 12:01 Carbon Dioxide 24.9 mmol/L (21.0-32.0) 11/27/18 12:01 Anion Gap 12.1 mmol/L (3-11) H 11/27/18 12:01 BUN 5 mg/dL (7-18) L 11/27/18 12:01 Creatinine 0.48 mg/dL (0.55-1.02) L 11/27/18 12:01 Estimated GFR/1.73 m2 >= 60.00 (mL/min/1.73m2) 11/27/18 12:01 Glucose 114 mg/dL (70-100) H 11/27/18 12:01 Calcium 8.3 mg/dL (8.5-10.1) L 11/27/18 12:01 Phosphorus 2.8 mg/dL (2.6-4.7) 11/26/18 21:15 Magnesium 2.2 mg/dL (1.8-2.4) 11/27/18 06:40 Total Bilirubin 1.3 mg/dL (0.2-1.0) H 11/27/18 06:40 AST 115 U/L (15-37) H 11/27/18 06:40 ALT 63 U/L (12-78) 11/27/18 06:40 Alkaline Phosphatase 394 U/L (46-116) H 11/27/18 06:40 Total Protein 5.9 g/dL (6.4-8.2) L 11/27/18 06:40 Albumin 2.7 g/dL (3.4-5.0) L 11/27/18 06:40 Lipase 96 U/L (73-393) 11/26/18 13:22 Urine Color Yellow (Yellow) 11/26/18 14:50 Urine Clarity Clear 11/26/18 14:50 Urine pH 7.0 (5-8) 11/26/18 14:50 Ur Specific [place] <= 1.005 (1.005-1.025) 11/26/18 14:50 Urine Protein 30 mg/dL (Negative) H 11/26/18 14:50 Urine Ketones 15 mg/dL (Negative) H 11/26/18 14:50 Urine Blood Small (Negative) H 11/26/18 14:50 Urine Nitrite Negative (Negative) 11/26/18 14:50 Urine Bilirubin Negative (Negative) 11/26/18 14:50 Urine Urobilinogen 0.2 EU/dL (Up TO 0.2) 11/26/18 14:50 Ur Leukocyte Esterase Small (Negative) H 11/26/18 14:50 Urine RBC 5-10 (0-2) H 11/26/18 14:50 Urine WBC 20-50 HPF (0-5) 11/26/18 14:50 Ur Epithelial Cells Few HPF (Negative) 11/26/18 14:50 Urine Crystals Negative HPF (Negative) 11/26/18 14:50 Urine Bacteria Negative HPF (Negative) 11/26/18 14:50 Urine Casts Negative LPF (Negative) 11/26/18 14:50 Urine Mucus Negative (Negative) 11/26/18 14:50 Ur Culture Indicated? Yes 11/26/18 14:50 Urine Glucose Negative mg/dL (Negative) 11/26/18 14:50 Urine Opiates Screen Negative (Negative) 11/26/18 14:50 Urine Methadone Screen Negative (Negative) 11/26/18 14:50 Acetaminophen < 2 ug/mL (10-30) L 11/26/18 13:22 Ur Barbiturates Screen Negative (Negative) 11/26/18 14:50 Ur Tricyclics Screen Negative (Negative) 11/26/18 14:50 Ur Amphetamines Screen Negative (Negative) 11/26/18 14:50 U Benzodiazepines Scrn Negative (Negative) 11/26/18 14:50 Urine Cocaine Screen Negative (Negative) 11/26/18 14:50 Ur THC Screen Negative (Negative) 11/26/18 14:50 Ethyl Alcohol 30.3 mg/dL (<3) 11/26/18 13:22 CT abdomen showing large pancreatic pseudocyst with internal densities compatible with hemorrhage. CT angiography for pulmonary embolism pending. Blood cultures pending. Fibrinogen pending.
--- NOTE | 2018-11-27 14:30 | DI.CT_ITS ---
SYMPTOMS/DIAGNOSIS: PERSISTENT TACHYCARDIA, ELEVATED D-DIMER, H/O DVT CHEST CT FOR PE: CT angiography was performed with multi slice acquisition and multi planar and 3D reconstruction. The study was carried out with an intravenous administration of 60 cc of Omnipaque 350. There is no evidence of pulmonary emboli. Faint ground-glass densities are identified bilaterally and are most prominent in the left lung, which is a nonspecific finding but the possibility of an acute pneumonitis could not be excluded. There is no pleural effusion. The heart is not enlarged. There is no pericardial effusion. There are atherosclerotic changes involving the aorta without evidence of an aneurysm. SUMMARY: No evidence of PE. The possibility of an acute pneumonitis in this patient is raised.
[2018-11-27 17:15] LABS: Fibrinogen 461 mg/dl (171-384)
[2018-11-27] MEDS: Pantoprazole 40 MG VIAL IVP (18:39)
[2018-11-28] VITALS (35 sets, daily range): BP systolic 102–147; BP diastolic 70–90; PULSE 93–136; RESP 13–32; TEMP 36.6–37.7; O2SAT 94–100
--- NOTE | 2018-11-28 08:04 | PDOC.CMPRO ---
- If Service Date Differs Date of service: 11/28/18 Time of Service: 08:04 Care Management Progress Note S/O:Lania was sitting up in bed during CM visit. She was bright and alert and talkative, readily engaging in conversation. Laina states that she wants rehab for her alcohol dependence. She states her parents are making her a reservation in a rehab facility in [place]. CM provided her with information about facilities in [place] and advised that she would need to contact them directly if she wished to enter a program. Laina enjoys doing word searches and was given a word search book by CM. A:Laina is a 38 year old woman admitted to [facility] on 11/26/18 with a diagnosis of severe hyponatremia and alcohol abuse. P:Laina is in the ICU receiving treatment for alcohol withdrawal and severe hyponatremia. She would likely benefit from substance abuse rehab if willing to go. CM provided her with options for treatment including [facility], [facility], [facility] and others. CM will continue to provide support to patient, family and discharge planning.
--- NOTE | 2018-11-28 08:07 | CMPROGNOTE_ITS ---
- If Service Date Differs Date of service: 11/28/18 Time of Service: 08:04 Care Management Progress Note S/O:Laina was sitting up in bed during CM visit. She was bright and alert and talkative, readily engaging in conversation. Laina states that she wants rehab for her alcohol dependence. She states her parents are making her a reservation in a rehab facility in [place]. CM provided her with information about facilities in [place] and advised that she would need to contact them directly if she wished to enter a program. Laina enjoys doing word searches and was given a word search book by CM. A:Laina is a 38 year old woman admitted to [facility] on 11/26/18 with a diagnosis of severe hyponatremia and alcohol abuse. P:Laina is in the ICU receiving treatment for alcohol withdrawal and severe hyponatremia. She would likely benefit from substance abuse rehab if willing to go. CM provided her with options for treatment including [facility] [place], [facility], [facility] and others. CM will continue to provide support to patient, family and discharge planning.
[2018-11-28] MEDS: Normal Saline Flush 10 ML SYR IVP ×4 (08:32→20:48)
[2018-11-28] MEDS: diazePAM 10 MG/2 ML SYR 5 MG IVP (08:33)
[2018-11-28] MEDS: CEFEPIME 2 GM in Normal Saline 100 ML IVPB ×2 (09:48→19:09)
--- NOTE | 2018-11-28 10:34 | PT.INIE ---
Date of service: 11/28/18 Time of Service: 09:35 PT Notes Inpatient Physical Therapy Evaluation Date: 11/28/2018 Referring Doctor: Michel Peoples MD PT Orders: PT CONSULT: Reduce risk for falls. Improve general conditioning Precautions: Fall. Standard. Seizure prone. Patient Profile/Admitting Diagnosis: Patient is a 38-year-old female who presented to the ED on 11/26/2018 with chief complaints of full body tremor, confusion, vomiting, and unsteadiness on feet. Patient was diagnosed with hyponatremia, alcoholic hepatitis, and suspected withdrawal seizures. PMHX: Medical History Pancreatic pseudocyst (Chronic) Chronic pancreatitis (Chronic) Anxiety (Chronic) Withdrawal seizures (Suspected) History of DVT (deep vein thrombosis) (Chronic) Alcohol abuse (Chronic) Acute pancreatitis (Acute) Hemorrhagic pancreatitis (Resolved) DVT (deep venous thrombosis) (Inactive) Pancreatitis (Inactive) Surgical History H/O LEEP (Acute) H/O chest tube placement (Inactive) Social History/Home Situation: Patient lives with and 2 daughters ages 13 and 14 in a mobile home in [place], [place] with a ramp to enter. Patient was independent with all aspects of ADLs without the need for an assistive ambulatory device nor adaptive equipment. 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 She further states that she currently relocated to [place] from [place]. Current Functional Limitations: Need for assistance with all transfer and ambulation tasks using FWW Equipment Owned/DME: Wheelchair Subjective: Patient is agreeable to a PT consultation and treatment. She did verbalize that she is so anxious about how she is going to do with physical therapy today as she still feels weak and is hurting all over. Patient states that she fell hitting her head first prior to admission to this hospital. Patient was teary-eyed about how she is going to handle everything from now with her daughter having an upcoming graduation this Monday at [employer],. She states she wants to get better so that she can attend said event. Patient reports pain on bilateral gluteal areas and legs. Objective: General Observation: Patient on telemetry. Continuous pulse oximetry on left ring finger. Multiple ecchymoses found on bilateral legs and arms. Mental Status: Alert and oriented x3. Patient needing frequent reassurances due to high anxiety level. Pain: Moderate pain on bilateral gluteal areas and legs ROM: Right Upper Extremity: Shoulder Flexion WFL. Shoulder abduction WFL. Elbow flexion WFL. Wrist flexion WFL. Functional opening and closing of hand WFL. Left Upper Extremity: Shoulder Flexion WFL. Shoulder abduction WFL. Elbow flexion WFL. Wrist flexion WFL. Functional opening and closing of hand WFL. Right Lower Extremity: Hip flexion WFL. Hip abduction WFL. Knee flexion WFL. Ankle dorsiflexion WFL. Ankle plantarflexion WFL. Left Lower Extremity: Hip flexion WFL. Hip abduction WFL. Knee flexion WFL. Ankle dorsiflexion WFL. Ankle plantarflexion WFL. Strength: Right Upper Extremity: Shoulder flexors 4-/5. Shoulder abductors 4-/5. Elbow flexors 4-/5. Elbow extensors 4-/5. [employer] strong. Left Upper Extremity: Shoulder flexors 4-/5. Shoulder abductors 4-/5. Elbow flexors 4-/5. Elbow extensors 4-/5. [employer] strong. Right Lower Extremity: Hip flexors 4-/5. Hip abductors 4-/5. Knee flexors 4-/5. Knee extensors 3+/5. Ankle dorsiflexors 4/5. Ankle plantarflexors 4/5. Left Lower Extremity:Hip flexors 4-/5. Hip abductors 4-/5. Knee flexors 4-/5. Knee extensors 3+/5. Ankle dorsiflexors 4/5. Ankle plantarflexors 4/5. Sensation: Intact test to pain and pressure on bilateral lower extremities Bed Mobility/Transfers: Rolling SBA Supine to sit SBA Sit to supine SBA Sit to stand min assist Stand to sit min assist Bed to chair min assist Chair to bed min assist Gait: Patient was able to tolerate level surface ambulation using FWW with FWB requiring minimal assist of this PT and IV pole management and standby assist of nurse for overall safety. Increase in anxiety observed in patient during activity requiring frequent reassurances. Gait velocity decreased with step height and length increased. Noticeable increase in shakiness seen during walking activity. Balance: Static Sitting: Good Dynamic Sitting: Good Static Standing: Fair Dynamic Standing: Fair Special Tests: Mobility Limitations Standardized Measure [facility]-PAC 6 clicks Basic Mobility Inpatient Short Form: Raw Score: 17 CMS Score: 51% deficit 4 Stage Balance Test: Patient was able to assume position 1 for about 5 seconds. Unable to assume positions 2 through 4 indicating at moderate high risk for falls and requiring use of an assistive ambulatory device at this time. Informed Consent/Education: Patient instructed in purpose of PT consult and plan of care. Assessment: Patient is a 38-year-old female diagnosed with hyponatremia, alcoholic hepatitis, and suspected withdrawal seizures.Patient presents with clinical signs and symptoms consistent with current/admitting diagnoses that have resulted to mobility limitations, gait instability, generalized weakness, and impairment of motor control as demonstrated by the following impairment level findings: 1. Decreased strength to B LE major muscle groups 2. Impaired sitting/standing balance 3. Impaired activity tolerance 4. Pain on bilateral gluteal areas and bilateral legs 5. High anxiety level and low self-confidence related to chronic alcoholism Impairments are contributing to the following functional limitations: 1. Dependent bed mobility skills 2. Increased dependence with transfers 3. Inability to safely ambulate without assistive device and physical assistance 4. Increase completion time for mobility ADL performance 5. Increased fall risk 6. Inability to negotiate steps alone safely Patient is assessed as a 63432 moderate complexity based on the following: History: 38-year-old female with chronic alcoholism recently diagnosed with hyponatremia, alcoholic hepatitis and suspected withdrawal seizures with accompanying high anxiety Examination: Underlying impairments and functional limitations as noted above Presentation:Evolving Decision Makin moderate complexity Goals: Goals X1 week 1. Supine-Sit independent 2. Sit-Supine independent 3. Sit-Stand independent 4. Stand-Sit independent 5. Bed-Chair independent 6. Chair-Bed independent 7. Independent gait on level surface with use of least restrictive device for at least 300 feet without report of pain nor dyspnea 8. Independent stair negotiation while holding onto bilateral rails for at least 5 steps without report of pain nor dyspnea 9. Independent with home exercise program 10. Good static and dynamic standing balance/tolerance Plan of Care/Treatment Plan: 1-2x/day, 7 days/week x 1 week. Plan of care has been reviewed with the CA[employer]OD SERVER providing the service under Physical Therapy direction. Initiate Physical Therapy intervention for strengthening, bed mobility, transfers, gait, stairs, balance training, use of assistive device. DISCHARGE RECOMMENDATIONS: Patient will benefit from home health PT services in order to progress mobility level using least restrictive assistive ambulatory device/using no device, assess home safety, identify additional equipment needs, and establish a functional maintenance program that will increase ability of patient to remain at home. TREATMENT CODE/TIME: 13315 x 30 minutes, 9753 0 x 27 minutes beginning at 9:35 AM. Thank you very much for this referral. Loretta Black PT, DPT, CLT [facility]
--- NOTE | 2018-11-28 10:37 | IN_ITS ---
Date of service: 11/28/18 Time of Service: 09:35 PT Notes Inpatient Physical Therapy Evaluation Date: 11/28/2018 Referring Doctor: Michel Peoples MD PT Orders: PT CONSULT: Reduce risk for falls. Improve general conditioning Precautions: Fall. Standard. Seizure prone. Patient Profile/Admitting Diagnosis: Patient is a 38-year-old female who presented to the ED on 11/26/2018 with chief complaints of full body tremor, confusion, vomiting, and unsteadiness on feet. Patient was diagnosed with hyponatremia, alcoholic hepatitis, and suspected withdrawal seizures. PMHX: Medical History Pancreatic pseudocyst (Chronic) Chronic pancreatitis (Chronic) Anxiety (Chronic) Withdrawal seizures (Suspected) History of DVT (deep vein thrombosis) (Chronic) Alcohol abuse (Chronic) Acute pancreatitis (Acute) Hemorrhagic pancreatitis (Resolved) DVT (deep venous thrombosis) (Inactive) Pancreatitis (Inactive) Surgical History H/O LEEP (Acute) H/O chest tube placement (Inactive) Social History/Home Situation: Patient lives with and 2 daughters ages 13 and 14 in a mobile home in [place], [place] with a ramp to enter. Patient was independent with all aspects of ADLs without the need for an assistive ambulatory device nor adaptive equipment. 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 She further states that she currently relocated to [place] from [place]. Current Functional Limitations: Need for assistance with all transfer and ambulation tasks using FWW Equipment Owned/DME: Wheelchair Subjective: Patient is agreeable to a PT consultation and treatment. She did verbalize that she is so anxious about how she is going to do with physical th erapy today as she still feels weak and is hurting all over. Patient states that she fell hitting her head first prior to admission to this hospital. Patient was teary-eyed about how she is going to handle everything from now with her daughter having an upcoming graduation this Monday at [employer]. She states she wants to get better so that she can attend said event. Patient reports pain on bilateral gluteal areas and legs. Objective: General Observation: Patient on telemetry. Continuous pulse oximetry on left ring finger. Multiple ecchymoses found on bilateral legs and arms. Mental Status: Alert and oriented x3. Patient needing frequent reassurances due to high anxiety level. Pain: Moderate pain on bilateral gluteal areas and legs ROM: Right Upper Extremity: Shoulder Flexion WFL. Shoulder abduction WFL. Elbow flexion WFL. Wrist flexion WFL. Functional opening and closing of hand WFL. Left Upper Extremity: Shoulder Flexion WFL. Shoulder abduction WFL. Elbow flexion WFL. Wrist flexion WFL. Functional opening and closing of hand WFL. Right Lower Extremity: Hip flexion WFL. Hip abduction WFL. Knee flexion WFL. Ankle dorsiflexion WFL. Ankle plantarflexion WFL. Left Lower Extremity: Hip flexion WFL. Hip abduction WFL. Knee flexion WFL. Ankle dorsiflexion WFL. Ankle plantarflexion WFL. Strength: Right Upper Extremity: Shoulder flexors 4-/5. Shoulder abductors 4-/5. Elbow flexors 4-/5. Elbow extensors 4-/5. [employer] strong. Left Upper Extremity: Shoulder flexors 4-/5. Shoulder abductors 4-/5. Elbow flexors 4-/5. Elbow extensors 4-/5. [employer] strong. Right Lower Extremity: Hip flexors 4-/5. Hip abductors 4-/5. Knee flexors 4-/5. Knee extensors 3+/5. Ankle dorsiflexors 4/5. Ankle plantarflexors 4/5. Left Lower Extremity:Hip flexors 4-/5. Hip abductors 4-/5. Knee flexors 4-/5. Knee extensors 3+/5. Ankle dorsiflexors 4/5. Ankle plantarflexors 4/5. Sensation: Intact test to pain and pressure on bilateral lower extremities Bed Mobility/Transfers: Rolling SBA Supine to sit SBA Sit to supine SBA Sit to stand min assist Stand to sit min assist Bed to chair min assist Chair to bed min assist Gait: Patient was able to tolerate level surface ambulation using FWW with FWB requiring minimal assist of this PT and IV pole management and standby assist of nurse for overall safety. Increase in anxiety observed in patient during activity requiring frequent reassurances. Gait velocity decreased with step height and length increased. Noticeable increase in shakiness seen during walking activity. Balance: Static Sitting: Good Dynamic Sitting: Good Static Standing: Fair Dynamic Standing: Fair Special Tests: Mobility Limitations Standardized Measure [facility]-PAC 6 clicks Basic Mobility Inpatient Short Form: Raw Score: 17 CMS Score: 51% deficit 4 Stage Balance Test: Patient was able to assume position 1 for about 5 seconds. Unable to assume positions 2 through 4 indicating at moderate high risk for falls and requiring use of an assistive ambulatory device at this time. Informed Consent/Education: Patient instructed in purpose of PT consult and plan of care. Assessment: Patient is a 38-year-old female diagnosed with hyponatremia, alcoholic hepatitis, and suspected withdrawal seizures.Patient presents with clinical signs and symptoms consistent with current/admitting diagnoses that have resulted to mobility limitations, gait instability, generalized weakness, and impairment of motor control as demonstrated by the following impairment level findings: 1. Decreased strength to B LE major muscle groups 2. Impaired sitting/standing balance 3. Impaired activity tolerance 4. Pain on bilateral gluteal areas and bilateral legs 5. High anxiety level and low self-confidence related to chronic alcoholism Impairments are contributing to the following functional limitations: 1. Dependent bed mobility skills 2. Increased dependence with transfers 3. Inability to safely ambulate without assistive device and physical assistance 4. Increase completion time for mobility ADL performance 5. Increased fall risk 6. Inability to negotiate steps alone safely Patient is assessed as a 93951 moderate complexity based on the following: History: 38-year-old female with chronic alcoholism recently diagnosed with hyponatremia, alcoholic hepatitis and suspected withdrawal seizures with accompanying high anxiety Examination: Underlying impairments and functional limitations as noted above Presentation:Evolving Decision Makin moderate complexity Goals: Goals X1 week 1. Supine-Sit independent 2. Sit-Supine independent 3. Sit-Stand independent 4. Stand-Sit independent 5. Bed-Chair independent 6. Chair-Bed independent 7. Independent gait on level surface with use of least restrictive device for at least 300 feet without report of pain nor dyspnea 8. Independent stair negotiation while holding onto bilateral rails for at least 5 steps without report of pain nor dyspnea 9. Independent with home exercise program 10. Good static and dynamic standing balance/tolerance Plan of Care/Treatment Plan: 1-2x/day, 7 days/week x 1 week. Plan of care has been reviewed with the ACCOUNTANT MACHINE PROCESSING providing the service under Physical Therapy direction. Initiate Physical Therapy intervention for strengthening, bed mobility, transfers, gait, stairs, balance training, use of assistive device. DISCHARGE RECOMMENDATIONS: Patient will benefit from home health PT services in order to progress mobility level using least restrictive assistive ambulatory device/using no device, assess home safety, identify additional equipment needs, and establish a functional maintenance program that will increase ability of patient to remain at home. TREATMENT CODE/TIME: 65672 x 30 minutes, 9753 0 x 27 minutes beginning at 9:35 AM. Thank you very much for this referral. Loretta Black PT, DPT, CLT [facility]
[2018-11-28 10:40] LABS: Haptoglobin 182 mg/dL (32-197)
[2018-11-28] MEDS: LORazepam 2 MG/ML VIAL IVP ×4 (10:49→20:36)
[2018-11-28 11:54] LABS: HCT 30.8 % (36.0-46.0); HGB 10.8 g/dL (12.0-15.5); Mean Corp. HGB Concentration 35.1 g/dL (32.0-36.0); Mean Corpuscular Volume 91.4 fL (80-95); Mean Platelet Volume 9.9 fL (8.0-11.0); RBC 3.37 m/cumm (4.00-5.20); RBC Distribution Width 13.3 % (11.7-14.6); White Blood Cell Count 5.15 k/cumm (4.4-10.8)
[2018-11-28 12:03] LABS: ALT 83 U/L (12-78); AST 125 U/L (15-37); Albumin 2.8 g/dL (3.4-5.0); Alkaline Phosphatase 393 U/L (46-116); Anion Gap 9.5 mmol/L (3-11); Bilirubin, Total 0.7 mg/dL (0.2-1.0); CO2 28.5 mmol/L (21.0-32.0); CREATININE 0.67 mg/dL (0.55-1.02); Calcium 8.4 mg/dL (8.5-10.1); Chloride 97 mmol/L (98-107); Glucose 166 mg/dL (70-100); Potassium 3.2 mmol/L (3.5-5.1); Sodium 135 mmol/L (136-145); TSH (W/Ref FT4) 2.34 uIU/mL (0.358-3.74); Total Protein 6.4 g/dL (6.4-8.2)
[2018-11-28 12:07] LABS: Procalcitonin 0.1 ng/mL
[2018-11-28 12:08] LABS: Platelet Count 72 x1000/uL (130-400)
[2018-11-28 12:10] LABS: BUN 1 mg/dL (7-18)
--- NOTE | 2018-11-28 14:15 | PT.INTREAT ---
Date of service: 11/28/18 Time of Service: 14:15 PT Notes 11/28/18 SUBJECTIVE: Pt noting extreme anxiety as I enter the room. She does not like to work with new people. She takes a moment and then is agreeable to PT treatment with me. She notes she is not ready to try using a cane today and she is hopeful to go home with a wheel chair and a commode. She complains of pain through bilateral legs and her bottom stating she was falling a lot at home prior to admission. OBJECTIVE: Seated on her bed. Agreeable to PT treatment. TRANSFERS Supine to sit: SBA Sit to supine: SBA Sit to stand: CGA Stand to sit: CGA GAIT Device: FWW Weight bearing: Full Assist: CGA Distance: 40' without wheel chair follow. When walking back to her room she requires WC follow. 10'+30' Deviation: 2 rest breaks. ASSESSMENT: Pt with significant amount of anxiety that may be partly limiting her functional mobility. She ambulates with decreased stride length and shuffling type gait pattern and requires cues for long stride length and general encouragement throughout. Pt would benefit from continued gait training, balance and strengthening to decrease fall risk at home. PLAN: Continue current POC progressing toward's established goals. Treatment time: 30 minutes Kelly Myles PTA
--- NOTE | 2018-11-28 14:30 | PGE_ITS ---
Date of Service Date of service: 11/28/18 Time of Service: 14:29 Assessment and Plan (1) Acute hyponatremia: Current visit: Yes Status: Acute Her sodium level is nearly normal now. I am backing down and IV fluids. I am not can a placed on a fluid restriction. Continue to monitor fluid balance and labs. (2) Thrombocytopenia: Current visit: Yes Status: Chronic Platelet count going up. This may all be related to marrow toxicity from alcohol? Less likely consumptive coagulopathy. Fibrinogen level elevated, nonspecific elevation of d-dimer may just be acute phase reactant but does have CT changes of the pseudocyst with possible hemorrhage which might be an explanation for the elevated d-dimer. In any event, thrombocytopenia improving. Continue to monitor. (3) Altered mental state: Current visit: Yes Status: Acute Suspect metabolic encephalopathy related to alcohol and medication use to help manage withdrawal. She is clearing though still complains of blurred vision and has bilateral pupillary dilatation, all probably a result of alcohol withdrawal. Continue to follow clinically. I do not think we need to repeat neuroimaging at this point. (4) Hypokalemia: Current visit: Yes Status: Acute Not much difference in potassium level despite IV supplement. Will place on oral potassium and monitor potassium level. (5) Alcoholic hepatitis: Current visit: Yes Status: Acute Transaminase levels have not changed much since admission. I wonder if this may be more manifestation of fatty infiltration rather than acute alcohol hepatitis. Periodically will continue to check LFTs. (6) Pancreatic pseudocyst: Current visit: No Status: Chronic Spoke with Dr. Chand, fellow in GI at [facility] [place]. He request from the GI team that prior to discharge she have a dual phase CT scan of the abdomen to be sure there are no vascular abnormalities that may make endoscopic drainage of her pseudocyst more risky. Speaking for the advanced endoscopist, their opinion is that she should have the pseudocyst drained when her other acute problems are resolved or significantly improved. Logistically this may have a better chance of completion if she goes directly from an [facility] to [facility] at discharge. We will have to see if this is feasible as we get closer to discharge. She continues to complain of abdominal pain, may or may not be related to the pseudocyst. I do not want to give her opiates given her addictive tendency. Reports GI upset from ibuprofen (and headache as a result of ondansetron to treat the nausea) I will give her a single dose of IV acetaminophen to see if this will help with her pain. (7) Anxiety: Current visit: No Status: Chronic Seems to be a little better today as her overall status is improving. Hold off on any medication such as SSRI for chronic anxiety. (8) Alcohol abuse: Current visit: No Status: Chronic Discussed with patient use of naltrexone after hospital discharge to help prevent relapse. No decision reached today. (9) DVT prophylaxis: Current visit: No Status: Acute Hold on anticoagulation given thrombocytopenia, no indication of pulmonary embolism on CT scan done yesterday. (10) Smoker: Current visit: Yes Status: Acute Nicotine replacement offered. (11) Alcohol withdrawal: Current visit: Yes Status: Acute Withdrawal symptoms slowly getting better. Scheduled benzodiazepines stopped, continue as needed lorazepam. Mentally more alert. Has not had any seizures or hallucinations. (12) Chronic pancreatitis: Current visit: No Status: Chronic Loose stools by history, I wonder if she may have exocrine pancreatic insufficiency. Order sent for stool studies although not urgent. Also will check celiac panel given her history of chronicity with loose stools. Abdominal pain may or may not be related to her chronic pancreatitis. Single dose of IV acetaminophen to see if this will help with her discomfort. Relative contraindications to NSAIDs because of history of GI upset from ibuprofen plus thrombocytopenia. (13) Healthcare-associated pneumonia: Current visit: Yes Status: Acute Subtle findings on CT done yesterday late afternoon, clinical findings more obvious today with right-sided crackles, cough but no fever, no hypoxia. I am going to treat her as healthcare associated pneumonia with cefepime. I do not think vancomycin indicated. Monitor clinical response. (14) Nausea & vomiting: Current visit: Yes Status: Acute Possibly due to fatty infiltration, alcohol induced gastritis, alcohol induced hepatitis, pressure from the large pseudocyst, hopefully not obstr uction. Nonsurgical abdomen. Symptom treatment recognizing risk for lowering seizure threshold with Phenergan. Reports ondansetron causes significant headache and does not want to take it. Continue efforts with oral intake as tolerated. Subjective Interval history since last seen: Mentally a bit more alert but still feels overall poor. Has more diffuse abdominal pain. Feeling hungry. Tolerating clear liquids but after eating lunch developed nausea and vomiting. No radiation of pain into her back. She has not been febrile. She has an increasing cough but no oxygen requirement. CT scan of the chest done yesterday afternoon negative for PE but did have subtle hazy infiltrates in the right lung field suggestive of early pneumonia. She has a nonproductive cough. No overt bleeding and no hemoptysis. She has not had any seizures. Her alcohol withdrawal scoring is slowly decreasing. She is mentally more alert. Discussed the case with GI at [facility] [place], GI fellow Dr. Chand, who has reviewed films with the endoscopy team. They do think that the pseudocyst should be drained but have concerns regarding potential complications. They would like to have a dual phase CT scan of the abdomen performed prior to any invasive intervention to assess for risk of bleeding from endoscopic drainage. They would like her acute problems to be resolved or nearly so before subjecting her to an invasive procedure. She has had frequent loose stools, not grossly bloody. Sodium is nearly normal, potassium still low, transaminase levels unchanged, procalcitonin level low, TSH normal Exam Narrative Exam Narrative: A little drowsy this morning, much more awake this afternoon although nauseated. She has been afebrile today, T-max yesterday 37.9. Pulse rate still sinus tachycardia on monitor 1 teens to 120s, blood pressures 1 teens to 130s systolic, oxygen saturation upper 90% on room air. She is not in any respiratory distress. She does have an occasional cough. Pupils are 4 mm equal dilated, photophobia and prefers room dark, no spontaneous nystagmus. Neck veins are flat. Lungs coarse crackles and coarse expiratory wheezing in the right lung field, clear on the left. No heart murmur S3 or S4. Abdomen flat, bowel sounds present, neither high or low pitched, diffuse tenderness to mild to moderate palpation in all areas of the abdomen not accentuated in the right upper quadrant or epigastric area. No guarding or rebound tenderness. Extremities warm no edema no petechiae 2+ distal pulses. Extensive bruises still present on all extremities from her past falls. Mild intention tremor this morning, better midday. Sits up unassisted. Speech clear. Objective Objective Clinical Data: Abnormal lab results 11/27/18 11/28/18 11/28/18 Range/Units 10:20 10:50 10:50 RBC 3.37 L (4.00-5.20) m/cumm Hgb 10.8 L (12.0-15.5) g/dL Hct 30.8 L (36.0-46.0) % Plt Count 72 L D (130-400) x1000/uL Fibrinogen 461 H (171-384) mg/dL Sodium 135 L (136-145) mmol/L Potassium 3.2 L (3.5-5.1) mmol/L Chloride 97 L (98-107) mmol/L BUN 1 L (7-18) mg/dL Glucose 166 H (70-100) mg/dL Calcium 8.4 L (8.5-10.1) mg/dL AST 125 H (15-37) U/L ALT 83 H (12-78) U/L Alkaline Phosphatase 393 H (46-116) U/L Albumin 2.8 L (3.4-5.0) g/dL Vital Signs Temperature 37.6 C H 11/28/18 08:48 Temperature Source Temporal Artery Scan 11/28/18 08:48 Pulse 123 H 11/28/18 06:01 Pulse 122 H 11/28/18 06:01 Respiratory Rate 24 11/28/18 06:01 Respiratory Effort Non-Labored 11/28/18 08:48 Respiratory Depth Normal 11/28/18 08:48 Respiratory Pattern Normal 11/28/18 08:48 Blood Pressure 128/84 11/28/18 06:01 Blood Pressure Mean 88 11/28/18 06:01 Blood Pressure Position Supine 11/27/18 04:43 Pulse Oximetry 98 11/28/18 09:20 Oxygen Delivery Method Room Air 11/28/18 09:20 Oxygen Flow Rate 0 11/28/18 09:20 Pain Level 0 11/28/18 08:48 Comment 11/26/18 13:16 Intake & Output 11/27/18 11/28/18 11/28/18 23:59 11:59 23:59 Intake Total 1485.833 / 2179.500 2175 / 3415 1240 / 3415 Output Total 1275 / 1875 2075 / 2275 200 / 2275 Balance 210.833 / 304.500 100 / 1140 1040 / 1140 Weight 55 kg Intake: IV 1195.833 / 6039.527 4611 / 1999 1000 / 1999 Oral 290 / 330 1175 / 1415 240 / 1415 Output: Urine 1275 / 1875 207 / 2275 200 / 2274 Other: Urine Color Dark Estefany Yellow Pale Urine Appearance Cloudy Clear Clear Urine Odor Foul Strong Comment mixed with stool Urine mixed with stool. Stool Size Small Stool Characteristics Liquid Brown Voiding Methods Bedside Commode Bedside Commode Laboratory Results WBC 5.15 k/cumm (4.4-10.8) 11/28/18 10:50 RBC 3.37 m/cumm (4.00-5.20) L 11/28/18 10:50 Hgb 10.8 g/dL (12.0-15.5) L 11/28/18 10:50 Hct 30.8 % (36.0-46.0) L 11/28/18 10:50 MCV 91.4 fL (80-95) 11/28/18 10:50 MCH 32.0 pg (27.0-33.0) 11/28/18 10:50 MCHC 35.1 g/dL (32.0-36.0) 11/28/18 10:50 RDW 13.3 % (11.7-14.6) 11/28/18 10:50 Plt Count 72 x1000/uL (130-400) L D 11/28/18 10:50 MPV 9.9 fL (8.0-11.0) 11/28/18 10:50 Immature Gran % 0.5 11/27/18 06:40 Neutrophils % 81.6 11/27/18 06:40 Lymphocytes % 10.5 11/27/18 06:40 Monocytes % 7.2 11/27/18 06:40 Eosinophils % 0.2 11/27/18 06:40 Basophils % 0.0 11/27/18 06:40 Absolute Neutrophils 4.98 k/cumm (1.2-6.7) 11/27/18 06:40 Absolute Lymphocytes 0.64 k/cumm (1.2-3.4) L 11/27/18 06:40 Absolute Monocytes 0.44 k/cumm (0.11-0.7) 11/27/18 06:40 Absolute Eosinophils 0.01 k/cumm (0.0-0.7) 11/27/18 06:40 Absolute Basophils 0.00 k/cumm (0.0-0.2) 11/27/18 06:40 Haptoglobin 182 mg/dL (32-197) 11/27/18 12:01 PT 11.3 sec (9.3-11.0) H 11/26/18 13:22 INR 1.1 (0.9-1.1) 11/26/18 13:22 Fibrinogen 461 mg/dL (171-384) H 11/27/18 10:20 D-Dimer 1194 ng/mlFEU (<500) H 11/27/18 10:20 Sodium 135 mmol/L (136-145) L 11/28/18 10:50 Potassium 3.2 mmol/L (3.5-5.1) L 11/28/18 10:50 Chloride 97 mmol/L (98-107) L 11/28/18 10:50 Carbon Dioxide 28.5 mmol/L (21.0-32.0) 11/28/18 10:50 Anion Gap 9.5 mmol/L (3-11) 11/28/18 10:50 BUN 1 mg/dL (7-18) L 11/28/18 10:50 Creatinine 0.67 mg/dL (0.55-1.02) 11/28/18 10:50 Estimated GFR/1.73 m2 >= 60.00 (mL/min/1.73m2) 11/28/18 10:50 Glucose 166 mg/dL (70-100) H 11/28/18 10:50 Calcium 8.4 mg/dL (8.5-10.1) L 11/28/18 10:50 Phosphorus 2.8 mg/dL (2.6-4.7) 11/26/18 21:15 Magnesium 2.2 mg/dL (1.8-2.4) 11/27/18 06:40 Total Bilirubin 0.7 mg/dL (0.2-1.0) 11/28/18 10:50 AST 125 U/L (15-37) H 11/28/18 10:50 ALT 83 U/L (12-78) H 11/28/18 10:50 Alkaline Phosphatase 393 U/L (46-116) H 11/28/18 10:50 Total Protein 6.4 g/dL (6.4-8.2) 11/28/18 10:50 Albumin 2.8 g/dL (3.4-5.0) L 11/28/18 10:50 Lipase 96 U/L (73-393) 11/26/18 13:22 Procalcitonin 0.1 ng/mL 11/28/18 10:50 TSH 2.34 uIU/mL (0.358-3.74) 11/28/18 10:50 Urine Color Yellow (Yellow) 11/26/18 14:50 Urine Clarity Clear 11/26/18 14:50 Urine pH 7.0 (5-8) 11/26/18 14:50 Ur Specific [place] <= 1.005 (1.005-1.025) 11/26/18 14:50 Urine Protein 30 mg/dL (Negative) H 11/26/18 14:50 Urine Ketones 15 mg/dL (Negative) H 11/26/18 14:50 Urine Blood Small (Negative) H 11/26/18 14:50 Urine Nitrite Negative (Negative) 11/26/18 14:50 Urine Bilirubin Negative (Negative) 11/26/18 14:50 Urine Urobilinogen 0.2 EU/dL (Up TO 0.2) 11/26/18 14:50 Ur Leukocyte Esterase Small (Negative) H 11/26/18 14:50 Urine RBC 5-10 (0-2) H 11/26/18 14:50 Urine WBC 20-50 HPF (0-5) 11/26/18 14:50 Ur Epithelial Cells Few HPF (Negative) 11/26/18 14:50 Urine Crystals Negative HPF (Negative) 11/26/18 14:50 Urine Bacteria Negative HPF (Negative) 11/26/18 14:50 Urine Casts Negative LPF (Negative) 11/26/18 14:50 Urine Mucus Negative (Negative) 11/26/18 14:50 Ur Culture Indicated? Yes 11/26/18 14:50 Urine Glucose Negative mg/dL (Negative) 11/26/18 14:50 Urine Opiates Screen Negative (Negative) 11/26/18 14:50 Urine Methadone Screen Negative (Negative) 11/26/18 14:50 Acetaminophen < 2 ug/mL (10-30) L 11/26/18 13:22 Ur Barbiturates Screen Negative (Negative) 11/26/18 14:50 Ur Tricyclics Screen Negative (Negative) 11/26/18 14:50 Ur Amphetamines Screen Negative (Negative) 11/26/18 14:50 U Benzodiazepines Scrn Negative (Negative) 11/26/18 14:50 Urine Cocaine Screen Negative (Negative) 11/26/18 14:50 Ur THC Screen Negative (Negative) 11/26/18 14:50 Ethyl Alcohol 30.3 mg/dL (<3) 11/26/18 13:22 blood cultures negative to date
--- NOTE | 2018-11-28 15:31 | CHAPLAIN ---
Zahraa was sitting up in bed when I visited. She told me that her father is a Gnosticism digital media producer and her mom is a member of [employer] [place] baptism. They live in [place]. Zahraa said it was difficult for her alternate between her parents' churches and stated that now she does not attend baptism, and is not sure she believes in God. She shared some personal history, telling me about her move to [place] from [place], and issues with her parents and her housing in [place]. She said she likes [place] except for the cold [place], so she mostly stayed inside. Billie recounted the morning she called 911 for help after falling into the tub, where she'd thrown up. She asked that I pray with her, and that we direct the prayer to a higher power in the universe. I let Zahraa know that I'm available to visit anytime and that her nurse can get a hold of me. I will visit her tomorrow.
[2018-11-28] MEDS: ACETAMINOPHEN 1,000 MG/100 ML BTL 400 MG IVPB (16:36)
[2018-11-28] MEDS: Pantoprazole 40 MG VIAL IVP (19:18)
[2018-11-28] MEDS: Potassium Chloride 20 MEQ TABCR PO (19:18)
[2018-11-29] VITALS (16 sets, daily range): BP systolic 106–137; BP diastolic 64–85; PULSE 80–117; RESP 14–24; TEMP 36.5–37.6; O2SAT 96–100
[2018-11-29] MEDS: LORazepam 2 MG/ML VIAL IVP ×2 (00:15→05:30)
[2018-11-29] MEDS: CEFEPIME 2 GM in Normal Saline 100 ML IVPB ×3 (02:17→17:18)
[2018-11-29] MEDS: Normal Saline Flush 10 ML SYR IVP (05:30)
[2018-11-29 07:03] LABS: Anion Gap 8.5 mmol/L (3-11); BUN 1 mg/dL (7-18); CO2 25.5 mmol/L (21.0-32.0); CREATININE 0.59 mg/dL (0.55-1.02); Calcium 8.4 mg/dL (8.5-10.1); Chloride 102 mmol/L (98-107); Glucose 196 mg/dL (70-100); Potassium 3.9 mmol/L (3.5-5.1); Sodium 136 mmol/L (136-145)
[2018-11-29 07:04] LABS: HCT 28.5 % (36.0-46.0); HGB 9.7 g/dL (12.0-15.5); Mean Corpuscular Hemoglobin 31.9 pg (27.0-33.0); Mean Corpuscular Volume 93.8 fL (80-95); Mean Platelet Volume 9.6 fL (8.0-11.0); Platelet Count 102 x1000/uL (130-400); RBC 3.04 m/cumm (4.00-5.20); RBC Distribution Width 13.5 % (11.7-14.6)
[2018-11-29] MEDS: Potassium Chloride 20 MEQ TABCR PO ×2 (08:27→20:13)
[2018-11-29] MEDS: Folic Acid 1 MG TAB PO (08:27)
[2018-11-29] MEDS: Pantoprazole 40 MG TABCR PO (08:27)
[2018-11-29] MEDS: Sucralfate 1 GM TAB PO ×2 (08:27→20:13)
[2018-11-29] MEDS: Multivitamin TAB 1 TAB PO (08:27)
[2018-11-29] MEDS: Thiamine 100 MG TAB PO (08:27)
[2018-11-29] MEDS: Sertraline 50 MG TAB PO (08:27)
--- NOTE | 2018-11-29 10:36 | PDOC.CMPRO ---
Care Management Progress Note S/O-Met with Zahraa today. She has now moved out of ICU and is much more content with her current room compared to ICU. She states if I don't remain sober after I get out of here I will . She states she has been on waiting list at facility in [place] for over 2 months. They will contact her when opening is available, which she hopes will be within the next few months. Discussed how she could obtain support locally since she has problem with transportation. Her works a lot and therefore has the car and can't take her to meetings. Gave her information on [facility] that could provide her with a one to one assistant women's soccer coach. She was very receptive to this option which might be good for her while she awaits a bed at the program in [place]. She plans to contact them. A-38 yo woman admitted with severe hyponatremia and ETOH abuse. P-She would like to try the assistant women's soccer coach option, which she has agreed to contact. It is anticipated she will d/c home when medically appropriate to wait out the [place] option.
[2018-11-29] MEDS: LORazepam 1 MG TAB PO/SL ×4 (10:38→23:56)
--- NOTE | 2018-11-29 11:32 | NUR.NOTE ---
Nursing Note: Patient transferred from ICU this am via wheelchair. Patient belongings gathered. Vital signs stable. Heart rate regular. Lungs clear. Hypoactive bowel sounds. Patient in bed sitting. Talkative at this time drinking iced coke. Patient reports abdominal pain at this time, 03/28. Multiple bruises scattered over arms and legs bilaterally. Patient changing into regular home clothes.
--- NOTE | 2018-11-29 11:57 | NUR.NOTE ---
Nursing Note: Nicotine patch removed from left shoulder by patient, patch dated 11/26/18.
--- NOTE | 2018-11-29 12:03 | PGE_ITS ---
Date of Service Date of service: 11/29/18 Time of Service: 07:30 Assessment and Plan (1) Acute hyponatremia: Current visit: Yes Status: Acute Sodium level is now normal. She has avidly been drinking and I wonder if she might have psychogenic polydipsia that contributed some to her initial low sodium. Continue to monitor fluid intake and electrolytes. 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 Continue to monitor platelet count episodically. (3) Altered mental state: Current visit: Yes Status: Acute Quite anxious and this may be driving much of her alcohol withdrawal scoring. She is not encephalopathic now, just quite anxious. Continue to monitor clinically. (4) Hypokalemia: Current visit: Yes Status: Acute Improved. Continue oral supplementation for another 24 hours and discontinue tomorrow. (5) Alcoholic hepatitis: Current visit: Yes Status: Acute Transaminase levels have not changed much since admission. I wonder if this may be more manifestation of fatty infiltration rather than acute alcohol hepatitis. Periodically will continue to check LFTs. (6) Pancreatic pseudocyst: Current visit: No Status: Chronic Still unclear if this is causing major symptoms. Some of her pain probably related to this. Plan for dual phase CT scan of the abdomen tomorrow, in anticipation of referral for endoscopic drainage of the cyst at [facility]. The logistics of this yet to be worked out. I am concerned that if this is scheduled as an outpatient there is a high probability that she will not show. (7) Anxiety: Current visit: No Status: Chronic As her physical condition is improving, her anxiety is getting worse and I am not convinced this is from alcohol withdrawal. She reports being on various benzodiazepines in the past but never on an SSRI. She does recognize the medication buspirone and does not recall if it was helpful or not. I am starting her on sertraline. Continue lorazepam as needed for anxiety as well as symptoms more convincing of alcohol withdrawal. (8) Alcohol abuse: Current visit: No Status: Chronic Withdrawal scoring variable. Continue oral as needed lorazepam. (9) DVT prophylaxis: Current visit: No Status: Acute Hold on anticoagulation given thrombocytopenia. She is up and walking around some now. (10) Smoker: Current visit: Yes Status: Acute Nicotine replacement offered. (11) Alcohol withdrawal: Current visit: Yes Status: Acute Withdrawal symptoms slowly getting better. Scheduled benzodiazepines stopped, continue as needed, p.o., lorazepam. Mentally more alert. Has not had any seizures or hallucinations. (12) Chronic pancreatitis: Current visit: No Status: Chronic Nausea bit better, pain somewhat less. Imaging as above. Stool studies have been sent. (13) Healthcare-associated pneumonia: Current visit: Yes Status: Acute Marked improvement overnight raising question as to whether or not she has healthcare associated pneumonia. I am continuing broad-spectrum antibiotic through today, likely switch to oral antibiotic tomorrow for a 5-day total treatment course. (14) Nausea & vomiting: Current visit: Yes Status: Acute Better this morning, follow for recurrence and symptom management as needed. Subjective Interval history since last seen: Complains of feeling very anxious. During the night up frequently to void, requesting various fluids to drink. Has not had vomiting since yesterday. Abdominal pain less. Still with a slight nonproductive cough but no fever. No hypoxemia on room air. Wants to get out of the ICU. Does not like the appearance of the pictures on the wall. Feeling like she is in [place] [facility]. Endorses long-standing problems with anxiety. Reports in the past was treated with Ativan, Xanax, but never with an SSRI as far she knows. She does recognize the medication name of buspirone and does not recall if it was helpful or not. No pleuritic chest pain. Oozes on her limbs are resolving. Lab work is improving with normalization of sodium, potassium, close to normal platelet count. Stool has been sent to assess for malabsorption/pancreatic exocrine insufficiency. Exam Narrative Exam Narrative: Anxious in appearance. Awake alert knows where she is and why. Pupils 3 mm reactive. Lungs with minimal crackles in the right lung field, no wheezing no rub. No heart murmur S3 or S4. Active bowel sounds. Abdominal palpation difficult to interpret, even laying hand on her abdomen produces complaints of discomfort and wincing. Lower extremities without edema. Oozing on all extremities slowly fading. No petechiae. No intention tremor. Sits up and lies down unassisted. Objective Objective Clinical Data: Abnormal lab results 11/28/18 11/28/18 11/29/18 Range/Units 10:50 10:50 06:25 RBC 3.37 L (4.00-5.20) m/cumm Hgb 10.8 L (12.0-15.5) g/dL Hct 30.8 L (36.0-46.0) % Plt Count 72 L D (130-400) x1000/uL Sodium 135 L (136-145) mmol/L Potassium 3.2 L (3.5-5.1) mmol/L Chloride 97 L (98-107) mmol/L BUN 1 L 1 L (7-18) mg/dL Glucose 166 H 196 H (70-100) mg/dL Calcium 8.4 L 8.4 L (8.5-10.1) mg/dL AST 125 H (15-37) U/L ALT 83 H (12-78) U/L Alkaline Phosphatase 393 H (46-116) U/L Albumin 2.8 L (3.4-5.0) g/dL 11/29/18 Range/Units 06:25 RBC 3.04 L (4.00-5.20) m/cumm Hgb 9.7 L (12.0-15.5) g/dL Hct 28.5 L (36.0-46.0) % Plt Count 102 L (130-400) x1000/uL Sodium (136-145) mmol/L Potassium (3.5-5.1) mmol/L Chloride (98-107) mmol/L BUN (7-18) mg/dL Glucose (70-100) mg/dL Calcium (8.5-10.1) mg/dL AST (15-37) U/L ALT (12-78) U/L Alkaline Phosphatase (46-116) U/L Albumin (3.4-5.0) g/dL Vital Signs Temperature 37.4 C 11/29/18 11:30 Temperature Source Tympanic 11/29/18 11:30 Pulse 91 H 11/29/18 11:30 Pulse Rhythm Regular 11/29/18 08:44 Pulse 95 H 11/29/18 08:00 Respiratory Rate 20 11/29/18 11:30 Respiratory Effort 11/29/18 08:44 Respiratory Depth Normal 11/29/18 08:44 Respiratory Pattern Normal 11/29/18 08:44 Blood Pressure 137/72 11/29/18 11:30 Blood Pressure Mean 83 11/29/18 07:34 Blood Pressure Position Supine 11/29/18 04:15 Pulse Oximetry 100 11/29/18 11:30 Oxygen Delivery Method Room Air 11/29/18 11:30 Oxygen Flow Rate 0 11/29/18 11:30 Pain Level 10 11/29/18 11:30 Comment 11/29/18 11:30 Intake & Output 11/28/18 11/29/18 11/29/18 23:59 11:59 23:59 Intake Total 3688.667 / 5863.667 2801.333 / 2801.333 Output Total 2825 / 4900 1600 / 1600 Balance 863.667 / 717.203 6314.333 / 1201.333 Weight 54.9 kg Intake: IV 1548.667 / 2548.667 871.333 / 871.333 Oral 2140 / 3315 1930 / 1930 Output: Urine 2825 / 4900 1600 / 1600 Other: Urine Color Yellow Pale Yellow Urine Appearance Clear Clear Urine Odor Normal None Comment up to commode x 3 this shift for urination, total 700 for the 3 trips Stool Occult Blood Negative Stool Size Small Small Stool Characteristics Liquid Soft Formed Voiding Methods Bedside Commode Bedside Commode Laboratory Results WBC 4.50 k/cumm (4.4-10.8) 11/29/18 06:25 RBC 3.04 m/cumm (4.00-5.20) L 11/29/18 06:25 Hgb 9.7 g/dL (12.0-15.5) L 11/29/18 06:25 Hct 28.5 % (36.0-46.0) L 11/29/18 06:25 MCV 93.8 fL (80-95) 11/29/18 06:25 MCH 31.9 pg (27.0-33.0) 11/29/18 06:25 MCHC 34.0 g/dL (32.0-36.0) 11/29/18 06:25 RDW 13.5 % (11.7-14.6) 11/29/18 06:25 Plt Count 102 x1000/uL (130-400) L 11/29/18 06:25 MPV 9.6 fL (8.0-11.0) 11/29/18 06:25 Immature Gran % 0.5 11/27/18 06:40 Neutrophils % 81.6 11/27/18 06:40 Lymphocytes % 10.5 11/27/18 06:40 Monocytes % 7.2 11/27/18 06:40 Eosinophils % 0.2 11/27/18 06:40 Basophils % 0.0 11/27/18 06:40 Absolute Neutrophils 4.98 k/cumm (1.2-6.7) 11/27/18 06:40 Absolute Lymphocytes 0.64 k/cumm (1.2-3.4) L 11/27/18 06:40 Absolute Monocytes 0.44 k/cumm (0.11-0.7) 11/27/18 06:40 Absolute Eosinophils 0.01 k/cumm (0.0-0.7) 11/27/18 06:40 Absolute Basophils 0.00 k/cumm (0.0-0.2) 11/27/18 06:40 Haptoglobin 182 mg/dL (32-197) 11/27/18 12:01 PT 11.3 sec (9.3-11.0) H 11/26/18 13:22 INR 1.1 (0.9-1.1) 11/26/18 13:22 Fibrinogen 461 mg/dL (171-384) H 11/27/18 10:20 D-Dimer 1194 ng/mlFEU (<500) H 11/27/18 10:20 Sodium 136 mmol/L (136-145) 11/29/18 06:25 Potassium 3.9 mmol/L (3.5-5.1) D 11/29/18 06:25 Chloride 102 mmol/L (98-107) 11/29/18 06:25 Carbon Dioxide 25.5 mmol/L (21.0-32.0) 11/29/18 06:25 Anion Gap 8.5 mmol/L (3-11) 11/29/18 06:25 BUN 1 mg/dL (7-18) L 11/29/18 06:25 Creatinine 0.59 mg/dL (0.55-1.02) 11/29/18 06:25 Estimated GFR/1.73 m2 >= 60.00 (mL/min/1.73m2) 11/29/18 06:25 Glucose 196 mg/dL (70-100) H 11/29/18 06:25 Calcium 8.4 mg/dL (8.5-10.1) L 11/29/18 06:25 Phosphorus 2.8 mg/dL (2.6-4.7) 11/26/18 21:15 Magnesium 2.2 mg/dL (1.8-2.4) 11/27/18 06:40 Total Bilirubin 0.7 mg/dL (0.2-1.0) 11/28/18 10:50 AST 125 U/L (15-37) H 11/28/18 10:50 ALT 83 U/L (12-78) H 11/28/18 10:50 Alkaline Phosphatase 393 U/L (46-116) H 11/28/18 10:50 Total Protein 6.4 g/dL (6.4-8.2) 11/28/18 10:50 Albumin 2.8 g/dL (3.4-5.0) L 11/28/18 10:50 Lipase 96 U/L (73-393) 11/26/18 13:22 Procalcitonin 0.1 ng/mL 11/28/18 10:50 TSH 2.34 uIU/mL (0.358-3.74) 11/28/18 10:50 Cortisol 10 ug/dL 11/28/18 10:50 Urine Color Yellow (Yellow) 11/26/18 14:50 Urine Clarity Clear 11/26/18 14:50 Urine pH 7.0 (5-8) 11/26/18 14:50 Ur Specific Hamer <= 1.005 (1.005-1.025) 11/26/18 14:50 Urine Protein 30 mg/dL (Negative) H 11/26/18 14:50 Urine Ketones 15 mg/dL (Negative) H 11/26/18 14:50 Urine Blood Small (Negative) H 11/26/18 14:50 Urine Nitrite Negative (Negative) 11/26/18 14:50 Urine Bilirubin Negative (Negative) 11/26/18 14:50 Urine Urobilinogen 0.2 EU/dL (Up TO 0.2) 11/26/18 14:50 Ur Leukocyte Esterase Small (Negative) H 11/26/18 14:50 Urine RBC 5-10 (0-2) H 11/26/18 14:50 Urine WBC 20-50 HPF (0-5) 11/26/18 14:50 Ur Epithelial Cells Few HPF (Negative) 11/26/18 14:50 Urine Crystals Negative HPF (Negative) 11/26/18 14:50 Urine Bacteria Negative HPF (Negative) 11/26/18 14:50 Urine Casts Negative LPF (Negative) 11/26/18 14:50 Urine Mucus Negative (Negative) 11/26/18 14:50 Ur Culture Indicated? Yes 11/26/18 14:50 Urine Glucose Negative mg/dL (Negative) 11/26/18 14:50 Urine Opiates Screen Negative (Negative) 11/26/18 14:50 Urine Methadone Screen Negative (Negative) 11/26/18 14:50 Acetaminophen < 2 ug/mL (10-30) L 11/26/18 13:22 Ur Barbiturates Screen Negative (Negative) 11/26/18 14:50 Ur Tricyclics Screen Negative (Negative) 11/26/18 14:50 Ur Amphetamines Screen Negative (Negative) 11/26/18 14:50 U Benzodiazepines Scrn Negative (Negative) 11/26/18 14:50 Urine Cocaine Screen Negative (Negative) 11/26/18 14:50 Ur THC Screen Negative (Negative) 11/26/18 14:50 Ethyl Alcohol 30.3 mg/dL (<3) 11/26/18 13:22
[2018-11-29] MEDS: Acetaminophen 500 MG TAB PO ×2 (12:14→16:07)
[2018-11-29] MEDS: LORazepam 1 MG TAB 2 MG PO ×2 (12:15→15:52)
[2018-11-29] MEDS: Nicotine 21 MG/24 HR PATCH TD (12:15)
--- NOTE | 2018-11-29 13:40 | PT.INTREAT ---
Date of service: 11/29/18 Time of Service: 13:40 PT Notes [facility] Inpatient Physical Therapy Date: 11/28/18 PRECAUTIONS: Extreme anxiety SUBJECTIVE: Patient is agreeable to participating in PT, although indicates that she is extremely anxious about getting up and walking. Patient states this is how I am going to get out of here. OBJECTIVE: PAIN: Patient c/o pain in R buttock and hip area with walking and transfers TRANSFERS Supine to sit: I Sit to supine: I Sit to stand: SBA in a.m.; S in p.m. Stand to sit: SBA in a.m.; S in p.m. GAIT Device: FWW Weight bearing: Full Assist: CGA Distance: 20' x4 in a.m.; 30' + 15' + 45' + 30' x2 Deviation: Seated rest x3 in a.m., seated rest x4 in p.m., no wheelchair follow THEREX: Patient completed LE strengthening exercises, while seatd at EOB, as per flow sheet. ASSESSMENT: Patient tolerated a progression in gait distance and tolerance today, with FWW support and CGA. Patient continues to require seated rest due to anxiety, she also reports right buttock and hip pain during gait training. Patient was able to progress her transfers to supervision today, and was also able to to tolerate the addition of several lower extremity strengthening exercises, in a seated position. Patient appears limited due to high anxiety and requires extended time to complete these tasks. Patient would benefit from continued gait and transfer training as well as strengthening for improved mobility and activity tolerance. PLAN: Continue with PTs POC Treatment time: Session 1: 30 minutes; 28147 x2 Session 2: 30 minutes; [id number], [id number]
--- NOTE | 2018-11-29 13:51 | CHAPLAIN ---
Zahraa was arranging her drinks on her tray when I stopped in. She also has Popsicle. She didn't remember me from yesterday, although we'd had a fairly long, personal conversation yesterday. She said she's had trouble falling asleep. I can be OCD with the things around me, but I can't be OCD with the things in my mind, she told me. She said her daughters and visited yesterday and that she is missing her daughter's graduation from [employer] today. Zahraa said she wanted to rest and asked me to return tomorrow, so I will.
--- NOTE | 2018-11-29 14:07 | CMPROGNOTE_ITS ---
Care Management Progress Note S/O-Met with Zahraa today. She has now moved out of ICU and is much more content with her current room compared to ICU. She states if I don't remain sober after I get out of here I will . She states she has been on waiting list at facility in [place] for over 2 months. They will contact her when opening is available, which she hopes will be within the next few months. Discussed how she could obtain support locally since she has problem with transportation. Her works a lot and therefore has the car and can't take her to meetings. Gave her information on [facility] that could provide her with a one to one quality assurance coach. She was very receptive to this option which might be good for her while she awaits a bed at the program in [place]. She plans to contact them. A-38 yo woman admitted with severe hyponatremia and ETOH abuse. P-She would like to try the quality assurance coach option, which she has agreed to contact. It is anticipated she will d/c home when medically appropriate to wait out the [place] option.
[2018-11-30] VITALS (11 sets, daily range): BP systolic 114–129; BP diastolic 61–84; PULSE 85–135; RESP 17–22; TEMP 36.3–37.4; O2SAT 98–100
[2018-11-30] MEDS: CEFEPIME 2 GM in Normal Saline 100 ML IVPB ×2 (01:53→09:28)
[2018-11-30] MEDS: Normal Saline Flush 10 ML SYR IVP ×2 (01:54→09:15)
[2018-11-30] MEDS: LORazepam 1 MG TAB PO/SL ×8 (02:13→23:38)
[2018-11-30 06:55] LABS: HCT 31.4 % (36.0-46.0); HGB 10.8 g/dL (12.0-15.5); Mean Corp. HGB Concentration 34.4 g/dL (32.0-36.0); Mean Corpuscular Hemoglobin 32.2 pg (27.0-33.0); Mean Corpuscular Volume 93.7 fL (80-95); Mean Platelet Volume 9.8 fL (8.0-11.0); Platelet Count 194 x1000/uL (130-400); RBC 3.35 m/cumm (4.00-5.20)
[2018-11-30 07:11] LABS: ALT 92 U/L (12-78); AST 66 U/L (15-37); Albumin 2.8 g/dL (3.4-5.0); Alkaline Phosphatase 342 U/L (46-116); Anion Gap 8.2 mmol/L (3-11); BUN 2 mg/dL (7-18); Bilirubin, Total 0.4 mg/dL (0.2-1.0); CO2 26.8 mmol/L (21.0-32.0); CREATININE 0.64 mg/dL (0.55-1.02); Calcium 8.9 mg/dL (8.5-10.1); Chloride 102 mmol/L (98-107); Glucose 111 mg/dL (70-100); Potassium 4.5 mmol/L (3.5-5.1); Sodium 137 mmol/L (136-145); Total Protein 6.4 g/dL (6.4-8.2)
--- NOTE | 2018-11-30 07:49 | PDOC.CMPRO ---
- If Service Date Differs Date of service: 11/30/18 Time of Service: 07:49 Care Management Progress Note S/O-Laina was sitting up in bed watching tv with all the lights off in her room when CM came to see her. She stated that she had a migraine when asked about the low lighting. Laina expressed anxiety about her upcoming procedure at [facility] [place] and said there isn't enough nerve medication in the world to help her calm down. CM received a call from [facility] regarding the procedure and received faxed instructions for Laina re: procedure preparation. A-38 yo woman admitted with severe hyponatremia and ETOH abuse. P-Laina is undergoing treatment for severe hyponatremia and alcohol withdrawal. Her CIWA scores remain high. When discharged, Laina would likely benefit from substance abuse treatment. CM will continue to provide support to patient, family and discharge planning process.
--- NOTE | 2018-11-30 07:52 | CMPROGNOTE_ITS ---
- If Service Date Differs Date of service: 11/30/18 Time of Service: 07:49 Care Management Progress Note S/O-Laina was sitting up in bed watching tv with all the lights off in her room when CM came to see her. She stated that she had a migraine when asked about the low lighting. Laina expressed anxiety about her upcoming [place] [facility] and said there isn't enough nerve medication in the world to help her calm down. CM received a call from [facility] [place] and received f axed instructions for Laina re: procedure preparation. A-38 yo woman admitted with severe hyponatremia and ETOH abuse. P-Laina is undergoing treatment for severe hyponatremia and alcohol withdr awal. Her CIWA scores remain high. When discharged, Laina would likely benefit from substance abuse treatment. CM will continue to provide support to patient, family and discharge planning process.
--- NOTE | 2018-11-30 08:15 | DI.CT_ITS ---
SYMPTOM/DIAGNOSIS: DUAL PHASE STUDY CT ABDOMEN: CT scan of the abdomen was performed during the arterial and venous phases. Comparison CT scan is 11/27/18 The lung bases show no acute abnormality. There is diffuse decreased attenuation of the liver consistent with fatty infiltration. No discrete hepatic mass is seen. The portal, superior mesenteric and splenic veins are all patent. The gallbladder is negative. There is no biliary ductal dilatation. There is again seen a large peripancreatic fluid collection. The bulk of the fluid collection is medial and adjacent to the pancreatic head. It measures 8 cm AP x 15 cm cranial caudad x 8.1 cm transverse. There is some increased density again seen in the lesion some of which appears to be dependent suggesting internal hemorrhage. The lesion displaces the celiac axis and portal veins. There is marked atrophy and calcification of the pancreas likely reflecting chronic pancreatitis. The spleen and adrenal glands are unremarkable as are the kidneys and proximal ureters. No significant abdominal adenopathy, ascites or pneumoperitoneum is present. Portions of the stomach and duodenum are displaced by the large fluid collection but the bowel is otherwise unremarkable. IMPRESSION: Persistent large heterogeneous fluid collection in the peripancreatic region. The findings are suspicious for a pseudo cyst. 2. Findings consistent with chronic pancreatitis with pancreatic atrophy 3. Hepatic steatosis.
[2018-11-30] MEDS: Thiamine 100 MG TAB PO (09:12)
[2018-11-30] MEDS: Pantoprazole 40 MG TABCR PO (09:12)
[2018-11-30] MEDS: Folic Acid 1 MG TAB PO (09:13)
[2018-11-30] MEDS: Potassium Chloride 20 MEQ TABCR PO (09:13)
[2018-11-30] MEDS: Multivitamin TAB 1 TAB PO (09:13)
[2018-11-30] MEDS: Sertraline 50 MG TAB PO (09:13)
[2018-11-30] MEDS: Sucralfate 1 GM TAB PO ×2 (09:13→20:08)
[2018-11-30] MEDS: Acetaminophen 500 MG TAB PO (10:21)
--- NOTE | 2018-11-30 12:12 | PT.INTREAT ---
Date of service: 11/30/18 Time of Service: 12:13 PT Notes [facility] Inpatient [facility] Therapy Date: 11/30/18 PRECAUTIONS: Extreme anxiety SUBJECTIVE: Patient is upset this morning, and continuously refers to the CT incident that happened earlier today. She indicates that she conitnues to feel extremely anxious about getting up and walking. OBJECTIVE: PAIN: No c/o pain TRANSFERS Sit to stand: I in a.m. Stand to sit: I in a.m. GAIT: Offered to train patient on SPC versus FWW, patient refused. Device: FWW Weight bearing: Full Assist: SBA Distance: 45' + 75' in a.m. Deviation: Seated rest x1 in a.m., seated rest x4 in p.m., no wheelchair follow ASSESSMENT: Patient tolerated a progression in gait distance and tolerance today, with FWW support and SBA. Patient continues to require seated rest due to anxiety. Patient was able to progress her transfers to independent today. Patient appears limited due to high anxiety and requires extended time to complete these tasks. Patient would benefit from continued gait and transfer training as well as strengthening for improved mobility and activity tolerance. PLAN: Continue with PTs POC Treatment time: Session 1: 20 minutes; [id number]
[2018-11-30] MEDS: Clindamycin 150 MG CAP 450 MG PO ×2 (12:22→20:07)
[2018-11-30] MEDS: Nicotine 21 MG/24 HR PATCH TD (12:22)
[2018-11-30] MEDS: clonazePAM 0.5 MG TAB 0.25 MG PO (13:54)
--- NOTE | 2018-11-30 14:00 | W.PM.PROGNOT ---
Date of Service Date of service: 11/30/18 Time of Service: 14:06 Assessment and Plan (1) Pancreatic pseudocyst: Current visit: No Status: Chronic May or may not be contributing to her symptoms of nausea and abdominal discomfort. I discussed again the case with Dr. Chand at [facility] [place] and the plan at this point is for her to have endoscopic drainage of this next Monday, December 04, at [facility]. Symptom management for nausea as below. (2) Nausea & vomiting: Current visit: Yes Status: Acute Getting better. Tolerating diet better. Will try oral Phenergan as needed. Continue PPI. (3) Healthcare-associated pneumonia: Current visit: Yes Status: Acute Marked and rapid improvement although still having some right-sided lung findings. I wonder if this might of been an aspiration event rather than healthcare associated pneumonia? Ready to transition to oral antibiotics. Will place on clindamycin because of my concern for aspiration and because of her penicillin allergy, Levaquin in the event that there are possible healthcare associated pathogens. I recognize this may be overkill. (4) Alcohol withdrawal: Current visit: Yes Status: Acute She has not had any seizures, obvious delirium or hallucinations. She is very anxious which I think is driving her scoring. I will continue with as needed lorazepam and, as noted below, in addition to SSRI place her on scheduled clonazepam. (5) Discharge planning issues: Current visit: Yes Status: Acute If she is medically stable for discharge before her appointment next week at [facility] [place] we will need to be sure we have transportation lined up for her to get to her appointment at [facility]. (6) Anxiety: Current visit: No Status: Chronic Chronic and severe. Sertraline just started. Too soon to titrate dose upward. Clonazepam on schedule added at least for the short-term. Continue as needed lorazepam. (7) Chronic pancreatitis: Current visit: No Status: Chronic She is not manifesting stearrhea. Probably does not have exocrine pancreatic insufficiency. Abdominal pain may be related to her chronic pancreatitis. Acetaminophen helps a little bit but clearly not relieving all of her pain. I am not going to place her on opiates. Relative contraindication to NSAIDs. Stool studies have been sent to assess for pancreatic exocrine insufficiency. Celiac serology is pending. Subjective Interval history since last seen: Still very anxious, on alcohol withdrawal scoring in the 20s but this is probably more driven by anxiety than alcohol withdrawal. She knows that she is anxious and states this is a long-standing problem. She was able, with coaching, to get to her CT scan which did not show any change in the pseudocyst and no evidence of any aneurysms or pseudoaneurysms around it which might make endoscopic drainage high risk. I spoken with GI at [facility] and plans are in place for endoscopic drainage December 04. Her electrolyte abnormalities have normalized with normal sodium and potassium. Her platelet count is normalized. She still has mild transaminitis. She complains of continued abdominal pain, mild headache, significant anxiety. Urine output has been good. She is not having diarrhea. She has a mild cough. She has not been febrile. She denies feeling short of breath except when she is upset and anxious. She is on day 3 of cefepime started out of concern for possible healthcare associated pneumonia based on clinical exam and CT scan of the chest. Exam Narrative Exam Narrative: Anxious, distractible. No acute respiratory distress. Occasional cough. T-max 37 blood pressure 1 teens over 70s most heart rate still above 100. SaO2 on room air 99%. Pupils 3 mm equal and reactive. She prefers the room to be darkened. Speech is clear. Lungs have somewhat coarse breath sounds in the right with a few scattered inspiratory crackles, no rub. Regular heart rhythm no murmur S3 or S4. Active bowel sounds. She complains of pain with just laying my hand on the skin of her abdomen. No ankle edema. Good pulses distally. Objective Objective Clinical Data: Abnormal lab results 11/30/18 11/30/18 Range/Units 06:05 06:05 RBC 3.35 L (4.00-5.20) m/cumm Hgb 10.8 L (12.0-15.5) g/dL Hct 31.4 L (36.0-46.0) % BUN 2 L (7-18) mg/dL Glucose 111 H D (70-100) mg/dL AST 66 H (15-37) U/L ALT 92 H (12-78) U/L Alkaline Phosphatase 342 H (46-116) U/L Albumin 2.8 L (3.4-5.0) g/dL Vital Signs Temperature 37 C 11/30/18 11:50 Temperature Source Tympanic 11/30/18 11:50 Pulse 108 H 11/30/18 11:50 Pulse Rhythm Regular 11/30/18 10:15 Pulse 95 H 11/29/18 08:00 Respiratory Rate 20 11/30/18 11:50 Respiratory Effort Non-Labored 11/30/18 10:15 Respiratory Depth Normal 11/30/18 10:15 Respiratory Pattern Normal 11/30/18 10:15 Blood Pressure 117/78 11/30/18 11:50 Blood Pressure Mean 83 11/29/18 07:34 Blood Pressure Position Supine 11/29/18 04:15 Pulse Oximetry 99 11/30/18 11:50 Oxygen Delivery Method Room Air 11/30/18 11:50 Oxygen Flow Rate 0 11/30/18 11:50 Pain Level 9 11/30/18 10:21 Comment 11/30/18 03:30 Intake & Output 11/29/18 11/30/18 11/30/18 23:59 11:59 23:59 Intake Total 1770.5 / 4671.833 1120 / 1980 860 / 1980 Output Total 2200 / 3900 4000 / 4150 150 / 4150 Balance -429.5 / 771.833 -2880 / -2170 710 / -2170 Weight 55.3 kg Intake: IV 150.5 / 1121.833 240 / 240 Oral 1620 / 3550 880 / 1740 860 / 1740 Output: Urine 2200 / 3900 4000 / 4150 150 / 4150 Other: Urine Color Pale Yellow Pale Yellow Urine Appearance Clear Clear Clear Urine Odor None Normal Stool Size Large Small Stool Characteristics Formed Soft Formed Voiding Methods Bedside Commode Bedside Commode Bedside Commode Laboratory Results WBC 5.00 k/cumm (4.4-10.8) 11/30/18 06:05 RBC 3.35 m/cumm (4.00-5.20) L 11/30/18 06:05 Hgb 10.8 g/dL (12.0-15.5) L 11/30/18 06:05 Hct 31.4 % (36.0-46.0) L 11/30/18 06:05 MCV 93.7 fL (80-95) 11/30/18 06:05 MCH 32.2 pg (27.0-33.0) 11/30/18 06:05 MCHC 34.4 g/dL (32.0-36.0) 11/30/18 06:05 RDW 14.0 % (11.7-14.6) 11/30/18 06:05 Plt Count 194 x1000/uL (130-400) 11/30/18 06:05 MPV 9.8 fL (8.0-11.0) 11/30/18 06:05 Immature Gran % 0.5 11/27/18 06:40 Neutrophils % 81.6 11/27/18 06:40 Lymphocytes % 10.5 11/27/18 06:40 Monocytes % 7.2 11/27/18 06:40 Eosinophils % 0.2 11/27/18 06:40 Basophils % 0.0 11/27/18 06:40 Absolute Neutrophils 4.98 k/cumm (1.2-6.7) 11/27/18 06:40 Absolute Lymphocytes 0.64 k/cumm (1.2-3.4) L 11/27/18 06:40 Absolute Monocytes 0.44 k/cumm (0.11-0.7) 11/27/18 06:40 Absolute Eosinophils 0.01 k/cumm (0.0-0.7) 11/27/18 06:40 Absolute Basophils 0.00 k/cumm (0.0-0.2) 11/27/18 06:40 Haptoglobin 182 mg/dL (32-197) 11/27/18 12:01 PT 11.3 sec (9.3-11.0) H 11/26/18 13:22 INR 1.1 (0.9-1.1) 11/26/18 13:22 Fibrinogen 461 mg/dL (171-384) H 11/27/18 10:20 D-Dimer 1194 ng/mlFEU (<500) H 11/27/18 10:20 Sodium 137 mmol/L (136-145) 11/30/18 06:05 Potassium 4.5 mmol/L (3.5-5.1) 11/30/18 06:05 Chloride 102 mmol/L (98-107) 11/30/18 06:05 Carbon Dioxide 26.8 mmol/L (21.0-32.0) 11/30/18 06:05 Anion Gap 8.2 mmol/L (3-11) 11/30/18 06:05 BUN 2 mg/dL (7-18) L 11/30/18 06:05 Creatinine 0.64 mg/dL (0.55-1.02) 11/30/18 06:05 Estimated GFR/1.73 m2 >= 60.00 (mL/min/1.73m2) 11/30/18 06:05 Glucose 111 mg/dL (70-100) H D 11/30/18 06:05 Calcium 8.9 mg/dL (8.5-10.1) 11/30/18 06:05 Phosphorus 2.8 mg/dL (2.6-4.7) 11/26/18 21:15 Magnesium 2.2 mg/dL (1.8-2.4) 11/27/18 06:40 Total Bilirubin 0.4 mg/dL (0.2-1.0) 11/30/18 06:05 AST 66 U/L (15-37) H 11/30/18 06:05 ALT 92 U/L (12-78) H 11/30/18 06:05 Alkaline Phosphatase 342 U/L (46-116) H 11/30/18 06:05 Total Protein 6.4 g/dL (6.4-8.2) 11/30/18 06:05 Albumin 2.8 g/dL (3.4-5.0) L 11/30/18 06:05 Lipase 96 U/L (73-393) 11/26/18 13:22 Procalcitonin 0.1 ng/mL 11/28/18 10:50 TSH 2.34 uIU/mL (0.358-3.74) 11/28/18 10:50 Cortisol 10 ug/dL 11/28/18 10:50 Urine Color Yellow (Yellow) 11/26/18 14:50 Urine Clarity Clear 11/26/18 14:50 Urine pH 7.0 (5-8) 11/26/18 14:50 Ur Specific [place] <= 1.005 (1.005-1.025) 11/26/18 14:50 Urine Protein 30 mg/dL (Negative) H 11/26/18 14:50 Urine Ketones 15 mg/dL (Negative) H 11/26/18 14:50 Urine Blood Small (Negative) H 11/26/18 14:50 Urine Nitrite Negative (Negative) 11/26/18 14:50 Urine Bilirubin Negative (Negative) 11/26/18 14:50 Urine Urobilinogen 0.2 EU/dL (Up TO 0.2) 11/26/18 14:50 Ur Leukocyte Esterase Small (Negative) H 11/26/18 14:50 Urine RBC 5-10 (0-2) H 11/26/18 14:50 Urine WBC 20-50 HPF (0-5) 11/26/18 14:50 Ur Epithelial Cells Few HPF (Negative) 11/26/18 14:50 Urine Crystals Negative HPF (Negative) 11/26/18 14:50 Urine Bacteria Negative HPF (Negative) 11/26/18 14:50 Urine Casts Negative LPF (Negative) 11/26/18 14:50 Urine Mucus Negative (Negative) 11/26/18 14:50 Ur Culture Indicated? Yes 11/26/18 14:50 Urine Glucose Negative mg/dL (Negative) 11/26/18 14:50 Stool Collect Duration Cancelled 11/29/18 00:44 Stool Weight Cancelled 11/29/18 00:44 Stool Percent Fat Cancelled 11/29/18 00:44 Stool Total Fats Cancelled 11/29/18 00:44 Urine Opiates Screen Negative (Negative) 11/26/18 14:50 Urine Methadone Screen Negative (Negative) 11/26/18 14:50 Acetaminophen < 2 ug/mL (10-30) L 11/26/18 13:22 Ur Barbiturates Screen Negative (Negative) 11/26/18 14:50 Ur Tricyclics Screen Negative (Negative) 11/26/18 14:50 Ur Amphetamines Screen Negative (Negative) 11/26/18 14:50 U Benzodiazepines Scrn Negative (Negative) 11/26/18 14:50 Urine Cocaine Screen Negative (Negative) 11/26/18 14:50 Ur THC Screen Negative (Negative) 11/26/18 14:50 Ethyl Alcohol 30.3 mg/dL (<3) 11/26/18 13:22
--- NOTE | 2018-11-30 14:01 | NUR.NOTE ---
Nursing Note: Patient is scoring on CIWA to receive Ativan again. New order for Klonapin. Klonapin just administered. Conferred with CC Kiara Vides RN who suggested waiting to see how the Klonapin works prior to medicating again with Ativan.
[2018-11-30] MEDS: levoFLOXacin 500 MG, levoFLOXacin 250 MG 750 MG PO (17:16)
[2018-11-30 19:35] LABS: Tissue Transglutaminase Ab IgA <1.2 U/mL; Tissue Transglutaminase Ab IgG <1.2 U/mL
[2018-11-30] MEDS: Metoprolol 12.5 MG TAB PO (20:07)
[2018-11-30] MEDS: Promethazine 25 MG TAB PO (23:38)
[2018-12-01 03:40] VITALS: BP 124/84; PULSE 110; RESP 20; TEMP 37.6; O2SAT 99
[2018-12-01] MEDS: Clindamycin 150 MG CAP 450 MG PO ×3 (04:05→20:51)
[2018-12-01] MEDS: LORazepam 1 MG TAB PO/SL ×5 (04:12→21:03)
[2018-12-01] MEDS: Acetaminophen 500 MG TAB PO ×3 (04:12→11:35)
[2018-12-01 05:07] VITALS: PULSE 104
[2018-12-01 07:15] VITALS: BP 117/79; PULSE 99; RESP 20; TEMP 36.8; O2SAT 98
[2018-12-01] MEDS: Promethazine 25 MG TAB PO (07:42)
--- NOTE | 2018-12-01 08:06 | CMPROGNOTE_ITS ---
- If Service Date Differs Date of service: 12/01/18 Time of Service: 08:04 Care Management Progress Note S/O-Laina was sitting up in bed with the room darkened when CM came to see her. Overnight her CIWA scores were lower, but later in the day today she again scored as high as 19. Laina was given a copy of the instructions faxed from [facility] to prepare for the procedure on her pseudocyst that will be performed on Monday. She states she is still anxious about having the procedure. Laina does not currently have a PCP. CM will assist with that process if she is discharged tomorrow. A-38 yo woman admitted with severe hyponatremia and ETOH abuse. P-Laina is undergoing treatment for severe hyponatremia and alcohol withdrawal. Her CIWA scores remain high. When discharged, Laina would likely benefit from substance abuse treatment. CM will continue to provide support to patient, family and discharge planning process. cc:
[2018-12-01] MEDS: clonazePAM 0.5 MG TAB 0.25 MG PO ×3 (09:27→20:51)
[2018-12-01] MEDS: Multivitamin TAB 1 TAB PO (09:27)
[2018-12-01] MEDS: Pantoprazole 40 MG TABCR PO (09:28)
[2018-12-01] MEDS: Thiamine 100 MG TAB PO (09:28)
[2018-12-01] MEDS: Sertraline 50 MG TAB PO (09:28)
[2018-12-01] MEDS: Folic Acid 1 MG TAB PO (09:28)
[2018-12-01] MEDS: Sucralfate 1 GM TAB PO ×2 (09:29→20:52)
[2018-12-01 11:19] VITALS: BP 122/83; PULSE 132; RESP 19; TEMP 37.6; O2SAT 99
[2018-12-01] MEDS: Nicotine 21 MG/24 HR PATCH TD (11:36)
--- NOTE | 2018-12-01 11:38 | PT.INNT ---
Date of service: 12/01/18 Time of Service: 11:00 PT Notes pt refused PT x2 this AM. She states that today just is not a good day. Will check in with her tomorrow.
--- NOTE | 2018-12-01 14:59 | W.PM.PROGNOT ---
Date of Service Date of service: 12/01/18 Time of Service: 15:00 Assessment and Plan (1) Alcohol withdrawal: Current visit: Yes Status: Acute Continue CIWA with prn ativan as well as scheduled clonazepam. I feel that tachycardia might be related. (2) Pancreatic pseudocyst: Current visit: No Status: Chronic May or may not be contributing to her symptoms of nausea and abdominal discomfort. Planned for EUS/drainage on December 04, at [facility], as outpatient. (3) Nausea & vomiting: Current visit: Yes Status: Acute Improved with Phenergan. Continue PPI. (4) Healthcare-associated pneumonia: Current visit: Yes Status: Acute Improved and tolerating PO abx. On levofloxacin and clindamycin - consider d/c clindamycin tomorrow. (5) Anxiety: Current visit: No Status: Chronic Chronic and severe. Sertraline started on this admission. Continue clonazepam as well as prn ativan. (6) Chronic pancreatitis: Current visit: No Status: Chronic for follow up with GI at [facility]. Needs to stop drinking. Stool studies pending. (7) DVT prophylaxis: Current visit: No Status: Acute TEDs/SCD's - ambulatory, under the age of 40, no chemical DVT ppx indicated. (8) Discharge planning issues: Current visit: Yes Status: Acute Hopefully discharge home tomorrow. [facility] appointment on Monday with GI. Needs a PCP. Subjective Interval history since last seen: Complains of nausea, dizziness, slight shortness of breath from pneumonia, but that's getting better, her chronic abdominal pain. She feels sleepy after klonopin. CIWA scores of 19 - received 3 mg of PO ativan, after requiring 2 other doses of 1 mg of ativan today. She reports hallucinating, thinking that she was hearing a radio. Exam Narrative Exam Narrative: General: Very tired appearing female, arousable, but appears to be under influence of benzodiazepines; slight tremor noted in her legs HEENT: EOMI, MMM Heart: RRR, tachycardic Lungs: CTAB GI: abdomen is soft, mildly distended Extremities: no obvious edema Objective Objective Clinical Data: Vital Signs Temperature 37.6 C H 12/01/18 11:19 Temperature Source Tympanic 12/01/18 11:19 Pulse 132 H 12/01/18 11:19 Pulse Rhythm Regular 11/30/18 23:40 Pulse 95 H 11/29/18 08:00 Respiratory Rate 19 12/01/18 11:19 Respiratory Effort 11/30/18 23:40 Respiratory Depth Normal 11/30/18 23:40 Respiratory Pattern Normal 11/30/18 23:40 Blood Pressure 122/83 12/01/18 11:19 Blood Pressure Mean 83 11/29/18 07:34 Blood Pressure Position Supine 11/29/18 04:15 Pulse Oximetry 99 12/01/18 11:19 Oxygen Delivery Method Room Air 12/01/18 11:19 Oxygen Flow Rate 0 12/01/18 11:19 Pain Level 10 12/01/18 11:35 Comment 12/01/18 03:40 Intake & Output 11/30/18 12/01/18 12/01/18 23:59 11:59 23:59 Intake Total 2540 / 3660 1140 / 1500 360 / 1500 Output Total 1050 / 5050 1850 / 1850 Balance 1490 / -1390 -710 / -350 360 / -350 Weight 52.5 kg Intake: Oral 2540 / 3420 1140 / 1500 360 / 1500 Output: Urine 1050 / 5050 1850 / 1850 Other: Urine Color Yellow Yellow Urine Appearance Clear Clear Urine Odor Strong None Comment Multiple voids in BSC not measured, pt dumped it in the toilet Stool Size Large Small Stool Characteristics Soft Soft Formed Formed Brown Brown Voiding Methods Bedside Commode Bedside Commode Laboratory Results WBC 5.00 k/cumm (4.4-10.8) 11/30/18 06:05 RBC 3.35 m/cumm (4.00-5.20) L 11/30/18 06:05 Hgb 10.8 g/dL (12.0-15.5) L 11/30/18 06:05 Hct 31.4 % (36.0-46.0) L 11/30/18 06:05 MCV 93.7 fL (80-95) 11/30/18 06:05 MCH 32.2 pg (27.0-33.0) 11/30/18 06:05 MCHC 34.4 g/dL (32.0-36.0) 11/30/18 06:05 RDW 14.0 % (11.7-14.6) 11/30/18 06:05 Plt Count 194 x1000/uL (130-400) 11/30/18 06:05 MPV 9.8 fL (8.0-11.0) 11/30/18 06:05 Immature Gran % 0.5 11/27/18 06:40 Neutrophils % 81.6 11/27/18 06:40 Lymphocytes % 10.5 11/27/18 06:40 Monocytes % 7.2 11/27/18 06:40 Eosinophils % 0.2 11/27/18 06:40 Basophils % 0.0 11/27/18 06:40 Absolute Neutrophils 4.98 k/cumm (1.2-6.7) 11/27/18 06:40 Absolute Lymphocytes 0.64 k/cumm (1.2-3.4) L 11/27/18 06:40 Absolute Monocytes 0.44 k/cumm (0.11-0.7) 11/27/18 06:40 Absolute Eosinophils 0.01 k/cumm (0.0-0.7) 11/27/18 06:40 Absolute Basophils 0.00 k/cumm (0.0-0.2) 11/27/18 06:40 Haptoglobin 182 mg/dL (32-197) 11/27/18 12:01 PT 11.3 sec (9.3-11.0) H 11/26/18 13:22 INR 1.1 (0.9-1.1) 11/26/18 13:22 Fibrinogen 461 mg/dL (171-384) H 11/27/18 10:20 D-Dimer 1194 ng/mlFEU (<500) H 11/27/18 10:20 Sodium 137 mmol/L (136-145) 11/30/18 06:05 Potassium 4.5 mmol/L (3.5-5.1) 11/30/18 06:05 Chloride 102 mmol/L (98-107) 11/30/18 06:05 Carbon Dioxide 26.8 mmol/L (21.0-32.0) 11/30/18 06:05 Anion Gap 8.2 mmol/L (3-11) 11/30/18 06:05 BUN 2 mg/dL (7-18) L 11/30/18 06:05 Creatinine 0.64 mg/dL (0.55-1.02) 11/30/18 06:05 Estimated GFR/1.73 m2 >= 60.00 (mL/min/1.73m2) 11/30/18 06:05 Glucose 111 mg/dL (70-100) H D 11/30/18 06:05 Calcium 8.9 mg/dL (8.5-10.1) 11/30/18 06:05 Phosphorus 2.8 mg/dL (2.6-4.7) 11/26/18 21:15 Magnesium 2.2 mg/dL (1.8-2.4) 11/27/18 06:40 Total Bilirubin 0.4 mg/dL (0.2-1.0) 11/30/18 06:05 AST 66 U/L (15-37) H 11/30/18 06:05 ALT 92 U/L (12-78) H 11/30/18 06:05 Alkaline Phosphatase 342 U/L (46-116) H 11/30/18 06:05 Total Protein 6.4 g/dL (6.4-8.2) 11/30/18 06:05 Albumin 2.8 g/dL (3.4-5.0) L 11/30/18 06:05 Lipase 96 U/L (73-393) 11/26/18 13:22 Procalcitonin 0.1 ng/mL 11/28/18 10:50 TSH 2.34 uIU/mL (0.358-3.74) 11/28/18 10:50 Cortisol 10 ug/dL 11/28/18 10:50 Urine Color Yellow (Yellow) 11/26/18 14:50 Urine Clarity Clear 11/26/18 14:50 Urine pH 7.0 (5-8) 11/26/18 14:50 Ur Specific [place] <= 1.005 (1.005-1.025) 11/26/18 14:50 Urine Protein 30 mg/dL (Negative) H 11/26/18 14:50 Urine Ketones 15 mg/dL (Negative) H 11/26/18 14:50 Urine Blood Small (Negative) H 11/26/18 14:50 Urine Nitrite Negative (Negative) 11/26/18 14:50 Urine Bilirubin Negative (Negative) 11/26/18 14:50 Urine Urobilinogen 0.2 EU/dL (Up TO 0.2) 11/26/18 14:50 Ur Leukocyte Esterase Small (Negative) H 11/26/18 14:50 Urine RBC 5-10 (0-2) H 11/26/18 14:50 Urine WBC 20-50 HPF (0-5) 11/26/18 14:50 Ur Epithelial Cells Few HPF (Negative) 11/26/18 14:50 Urine Crystals Negative HPF (Negative) 11/26/18 14:50 Urine Bacteria Negative HPF (Negative) 11/26/18 14:50 Urine Casts Negative LPF (Negative) 11/26/18 14:50 Urine Mucus Negative (Negative) 11/26/18 14:50 Ur Culture Indicated? Yes 11/26/18 14:50 Urine Glucose Negative mg/dL (Negative) 11/26/18 14:50 Stool Collect Duration Cancelled 11/29/18 00:44 Stool Weight Cancelled 11/29/18 00:44 Stool Percent Fat Cancelled 11/29/18 00:44 Stool Total Fats Cancelled 11/29/18 00:44 Urine Opiates Screen Negative (Negative) 11/26/18 14:50 Urine Methadone Screen Negative (Negative) 11/26/18 14:50 Acetaminophen < 2 ug/mL (10-30) L 11/26/18 13:22 Ur Barbiturates Screen Negative (Negative) 11/26/18 14:50 Ur Tricyclics Screen Negative (Negative) 11/26/18 14:50 Ur Amphetamines Screen Negative (Negative) 11/26/18 14:50 U Benzodiazepines Scrn Negative (Negative) 11/26/18 14:50 Urine Cocaine Screen Negative (Negative) 11/26/18 14:50 Ur THC Screen Negative (Negative) 11/26/18 14:50 Ethyl Alcohol 30.3 mg/dL (<3) 11/26/18 13:22
--- NOTE | 2018-12-01 15:06 | PGE_ITS ---
Date of Service Date of service: 12/01/18 Time of Service: 15:00 Assessment and Plan (1) Alcohol withdrawal: Current visit: Yes Status: Acute Continue CIWA with prn ativan as well as scheduled clonazepam. I feel that tachycardia might be related. (2) Pancreatic pseudocyst: Current visit: No Status: Chronic May or may not be contributing to her symptoms of nausea and abdominal discomfort. Planned for EUS/drainage on December 04, at [facility] [place], as outpati ent. (3) Nausea & vomiting: Current visit: Yes Status: Acute Improved with Phenergan. Continue PPI. (4) Healthcare-associated pneumonia: Current visit: Yes Status: Acute Improved and tolerating PO abx. On levofloxacin and clindamycin - consider d/c clindamycin tomorrow. (5) Anxiety: Current visit: No Status: Chronic Chronic and severe. Sertraline started on this admission. Continue clonazepam as well as prn ativan. (6) Chronic pancreatitis: Current visit: No Status: Chronic for follow up with GI at [facility] [place]. Needs to stop drinking. Stool studies pending. (7) DVT prophylaxis: Current visit: No Status: Acute TEDs/SCD's - ambulatory, under the age of 40, no chemical DVT ppx indicated. (8) Discharge planning issues: Current visit: Yes Status: Acute Hopefully discharge home tomorrow. [facility] [place] appointment on Monday with GI. Needs a PCP. Subjective Interval history since last seen: Complains of nausea, dizziness, slight shortness of breath from pneumonia, but that's getting better, her chronic abdominal pain. She feels sleepy after klonopin. CIWA scores of 19 - received 3 mg of PO ativan, after requiring 2 other doses of 1 mg of ativan today. She reports hallucinating, thinking that she was hearing a radio. Exam Narrative Exam Narrative: General: Very tired appearing female, arousable, but appears to be under influence of benzodiazepines; slight tremor noted in her legs HEENT: EOMI, MMM Heart: RRR, tachycardic Lungs: CTAB GI: abdomen is soft, mildly distended Extremities: no obvious edema Objective Objective Clinical Data: Vital Signs Temperature 37.6 C H 12/01/18 11:19 Temperature Source Tympanic 12/01/18 11:19 Pulse 132 H 12/01/18 11:19 Pulse Rhythm Regular 11/30/18 23:40 Pulse 95 H 11/29/18 08:00 Respiratory Rate 19 12/01/18 11:19 Respiratory Effort 11/30/18 23:40 Respiratory Depth Normal 11/30/18 23:40 Respiratory Pattern Normal 11/30/18 23:40 Blood Pressure 122/83 12/01/18 11:19 Blood Pressure Mean 83 11/29/18 07:34 Blood Pressure Position Supine 11/29/18 04:15 Pulse Oximetry 99 12/01/18 11:19 Oxygen Delivery Method Room Air 12/01/18 11:19 Oxygen Flow Rate 0 12/01/18 11:19 Pain Level 10 12/01/18 11:35 Comment 12/01/18 03:40 Intake & Output 11/30/18 12/01/18 12/01/18 23:59 11:59 23:59 Intake Total 2540 / 3660 1140 / 1500 360 / 1500 Output Total 1050 / 5050 1850 / 1850 Balance 1490 / -1390 -710 / -350 360 / -350 Weight 52.5 kg Intake: Oral 2540 / 3420 1140 / 1500 360 / 1500 Output: Urine 1050 / 5050 1850 / 1850 Other: Urine Color Yellow Yellow Urine Appearance Clear Clear Urine Odor Strong None Comment Multiple voids in BSC not measured, pt dumped it in the toilet Stool Size Large Small Stool Characteristics Soft Soft Formed Formed Brown Brown Voiding Methods Bedside Commode Bedside Commode Laboratory Results WBC 5.00 k/cumm (4.4-10.8) 11/30/18 06:05 RBC 3.35 m/cumm (4.00-5.20) L 11/30/18 06:05 Hgb 10.8 g/dL (12.0-15.5) L 11/30/18 06:05 Hct 31.4 % (36.0-46.0) L 11/30/18 06:05 MCV 93.7 fL (80-95) 11/30/18 06:05 MCH 32.2 pg (27.0-33.0) 11/30/18 06:05 MCHC 34.4 g/dL (32.0-36.0) 11/30/18 06:05 RDW 14.0 % (11.7-14.6) 11/30/18 06:05 Plt Count 194 x1000/uL (130-400) 11/30/18 06:05 MPV 9.8 fL (8.0-11.0) 11/30/18 06:05 Immature Gran % 0.5 11/27/18 06:40 Neutrophils % 81.6 11/27/18 06:40 Lymphocytes % 10.5 11/27/18 06:40 Monocytes % 7.2 11/27/18 06:40 Eosinophils % 0.2 11/27/18 06:40 Basophils % 0.0 11/27/18 06:40 Absolute Neutrophils 4.98 k/cumm (1.2-6.7) 11/27/18 06:40 Absolute Lymphocytes 0.64 k/cumm (1.2-3.4) L 11/27/18 06:40 Absolute Monocytes 0.44 k/cumm (0.11-0.7) 11/27/18 06:40 Absolute Eosinophils 0.01 k/cumm (0.0-0.7) 11/27/18 06:40 Absolute Basophils 0.00 k/cumm (0.0-0.2) 11/27/18 06:40 Haptoglobin 182 mg/dL (32-197) 11/27/18 12:01 PT 11.3 sec (9.3-11.0) H 11/26/18 13:22 INR 1.1 (0.9-1.1) 11/26/18 13:22 Fibrinogen 461 mg/dL (171-384) H 11/27/18 10:20 D-Dimer 1194 ng/mlFEU (<500) H 11/27/18 10:20 Sodium 137 mmol/L (136-145) 11/30/18 06:05 Potassium 4.5 mmol/L (3.5-5.1) 11/30/18 06:05 Chloride 102 mmol/L (98-107) 11/30/18 06:05 Carbon Dioxide 26.8 mmol/L (21.0-32.0) 11/30/18 06:05 Anion Gap 8.2 mmol/L (3-11) 11/30/18 06:05 BUN 2 mg/dL (7-18) L 11/30/18 06:05 Creatinine 0.64 mg/dL (0.55-1.02) 11/30/18 06:05 Estimated GFR/1.73 m2 >= 60.00 (mL/min/1.73m2) 11/30/18 06:05 Glucose 111 mg/dL (70-100) H D 11/30/18 06:05 Calcium 8.9 mg/dL (8.5-10.1) 11/30/18 06:05 Phosphorus 2.8 mg/dL (2.6-4.7) 11/26/18 21:15 Magnesium 2.2 mg/dL (1.8-2.4) 11/27/18 06:40 Total Bilirubin 0.4 mg/dL (0.2-1.0) 11/30/18 06:05 AST 66 U/L (15-37) H 11/30/18 06:05 ALT 92 U/L (12-78) H 11/30/18 06:05 Alkaline Phosphatase 342 U/L (46-116) H 11/30/18 06:05 Total Protein 6.4 g/dL (6.4-8.2) 11/30/18 06:05 Albumin 2.8 g/dL (3.4-5.0) L 11/30/18 06:05 Lipase 96 U/L (73-393) 11/26/18 13:22 Procalcitonin 0.1 ng/mL 11/28/18 10:50 TSH 2.34 uIU/mL (0.358-3.74) 11/28/18 10:50 Cortisol 10 ug/dL 11/28/18 10:50 Urine Color Yellow (Yellow) 11/26/18 14:50 Urine Clarity Clear 11/26/18 14:50 Urine pH 7.0 (5-8) 11/26/18 14:50 Ur Specific [place] <= 1.005 (1.005-1.025) 11/26/18 14:50 Urine Protein 30 mg/dL (Negative) H 11/26/18 14:50 Urine Ketones 15 mg/dL (Negative) H 11/26/18 14:50 Urine Blood Small (Negative) H 11/26/18 14:50 Urine Nitrite Negative (Negative) 11/26/18 14:50 Urine Bilirubin Negative (Negative) 11/26/18 14:50 Urine Urobilinogen 0.2 EU/dL (Up TO 0.2) 11/26/18 14:50 Ur Leukocyte Esterase Small (Negative) H 11/26/18 14:50 Urine RBC 5-10 (0-2) H 11/26/18 14:50 Urine WBC 20-50 HPF (0-5) 11/26/18 14:50 Ur Epithelial Cells Few HPF (Negative) 11/26/18 14:50 Urine Crystals Negative HPF (Negative) 11/26/18 14:50 Urine Bacteria Negative HPF (Negative) 11/26/18 14:50 Urine Casts Negative LPF (Negative) 11/26/18 14:50 Urine Mucus Negative (Negative) 11/26/18 14:50 Ur Culture Indicated? Yes 11/26/18 14:50 Urine Glucose Negative mg/dL (Negative) 11/26/18 14:50 Stool Collect Duration Cancelled 11/29/18 00:44 Stool Weight Cancelled 11/29/18 00:44 Stool Percent Fat Cancelled 11/29/18 00:44 Stool Total Fats Cancelled 11/29/18 00:44 Urine Opiates Screen Negative (Negative) 11/26/18 14:50 Urine Methadone Screen Negative (Negative) 11/26/18 14:50 Acetaminophen < 2 ug/mL (10-30) L 11/26/18 13:22 Ur Barbiturates Screen Negative (Negative) 11/26/18 14:50 Ur Tricyclics Screen Negative (Negative) 11/26/18 14:50 Ur Amphetamines Screen Negative (Negative) 11/26/18 14:50 U Benzodiazepines Scrn Negative (Negative) 11/26/18 14:50 Urine Cocaine Screen Negative (Negative) 11/26/18 14:50 Ur THC Screen Negative (Negative) 11/26/18 14:50 Ethyl Alcohol 30.3 mg/dL (<3) 11/26/18 13:22
[2018-12-01 15:34] VITALS: BP 114/69; PULSE 111; RESP 17; TEMP 37; O2SAT 97
[2018-12-01] MEDS: levoFLOXacin 500 MG, levoFLOXacin 250 MG 750 MG PO (17:27)
--- NOTE | 2018-12-01 19:29 | NUR.NOTE ---
Nursing Note: Per Kiara Vides, RNCC Ativan dose for CIWA score held at 0930. Per Kiara patient could become too somnolent since she just got her scheduled Klonopin
[2018-12-01 19:46] VITALS: BP 117/75; PULSE 100; RESP 16; TEMP 36.9; O2SAT 98
[2018-12-02] VITALS (9 sets, daily range): BP systolic 105–135; BP diastolic 66–79; PULSE 94–119; RESP 16–20; TEMP 36.1–37.3; O2SAT 94–99
[2018-12-02] MEDS: LORazepam 1 MG TAB 2 MG PO (01:31)
--- NOTE | 2018-12-02 01:40 | NUR.NOTE ---
Nursing Note: At around 1:30 A.M. pt rang, this magazine writer went to check on pt. Pt stated that she was having a panic attack, she woke up like this and almost fell out of the bed. Pt was breathing heavily and having a hard time concentrating. Pt asked if there was anything that this magazine writer could give her? This magazine writer gave 2mg of ativan per PRN order, see MAR. Will continue to monitor.
[2018-12-02] MEDS: Clindamycin 150 MG CAP 450 MG PO (03:32)
[2018-12-02] MEDS: LORazepam 1 MG TAB PO/SL ×7 (03:36→23:19)
[2018-12-02 07:13] LABS: BUN 3 mg/dL (7-18); Calcium 8.7 mg/dL (8.5-10.1); Chloride 102 mmol/L (98-107); Glucose 183 mg/dL (70-100); Magnesium 1.6 mg/dL (1.8-2.4); Potassium 3.9 mmol/L (3.5-5.1); Sodium 139 mmol/L (136-145)
[2018-12-02 07:22] LABS: HGB 10.9 g/dL (12.0-15.5); Mean Corpuscular Volume 96.8 fL (80-95); Mean Platelet Volume 9.4 fL (8.0-11.0); RBC 3.41 m/cumm (4.00-5.20); RBC Distribution Width 14.8 % (11.7-14.6); White Blood Cell Count 6.21 k/cumm (4.4-10.8)
[2018-12-02 08:10] LABS: Platelet Count 379 x1000/uL (130-400)
[2018-12-02 08:11] LABS: Absolute Lymphocyte Count 1.68 k/cumm (1.2-3.4); Absolute Monocyte Count 0.75 k/cumm (0.11-0.7); Absolute Neutrophil Count 3.66 k/cumm (1.2-6.7)
[2018-12-02 08:12] LABS: Anisocytosis 1+; Diff Comment Manual Differential; Polychromasia Present
[2018-12-02] MEDS: clonazePAM 0.5 MG TAB 0.25 MG PO (08:20)
[2018-12-02] MEDS: Sucralfate 1 GM TAB PO ×2 (08:21→20:08)
[2018-12-02] MEDS: Thiamine 100 MG TAB PO (08:21)
[2018-12-02] MEDS: Folic Acid 1 MG TAB PO (08:21)
[2018-12-02] MEDS: Multivitamin TAB 1 TAB PO (08:21)
[2018-12-02] MEDS: Pantoprazole 40 MG TABCR PO (08:22)
[2018-12-02] MEDS: Sertraline 50 MG TAB PO (09:00)
[2018-12-02] MEDS: Promethazine 25 MG TAB PO (10:23)
--- NOTE | 2018-12-02 10:49 | PT.INNT ---
Date of service: 12/02/18 Time of Service: 10:15 PT Notes pt deferred PT again today. I am not feeling up to it, besides, I think I am going home anyhow. She reports ambulating in her room without the use of an assistive device. She admits to furniture/wall surfing for stability.
[2018-12-02] MEDS: Normal Saline Flush 10 ML SYR IVP ×2 (10:54→20:08)
[2018-12-02] MEDS: chlordiazePOXIDE 25 MG CAP PO (11:17)
[2018-12-02] MEDS: Normal Saline 500 ML IV (11:18)
[2018-12-02] MEDS: MAGNESIUM SULFATE 2 GM/50 ML BAG IVPB (11:20)
[2018-12-02 11:55] LABS: Ammonia 18 umol/L (11-32)
[2018-12-02 12:40] LABS: Hemoglobin A1C 5.9 % (4.5-6.2)
--- NOTE | 2018-12-02 15:22 | W.PM.PROGNOT ---
Date of Service Date of service: 12/02/18 Time of Service: 15:22 Assessment and Plan (1) Alcohol withdrawal: Current visit: Yes Status: Acute With high CIWA scores. Place on tele. Switched from clonazepam to librium - will double the dose given her high CIWA score after the 25 mg dose. Continue prn ativan in addition to this. Patient is not ready for discharge. Patient is interested in alcohol rehab on discharge. (2) Pancreatic pseudocyst: Current visit: No Status: Chronic May or may not be contributing to her symptoms of nausea and abdominal discomfort. Planned for EUS/drainage on Monday, December 04, at [facility] [place], as outpatient. (3) Nausea & vomiting: Current visit: Yes Status: Acute Improved with Phenergan. Continue PPI, phenergan. (4) Healthcare-associated pneumonia: Current visit: Yes Status: Acute Improved and tolerating PO abx. On levofloxacin. Clindamycin d/c'ed. Follow up CXR. May benefit from steroids. (5) Anxiety: Current visit: No Status: Chronic Chronic and severe. Sertraline started on this admission. Clonazepam changed to librium. (6) Chronic pancreatitis: Current visit: No Status: Chronic for follow up with GI at [facility] [place]. Needs to stop drinking. Stool studies pending. (7) DVT prophylaxis: Current visit: No Status: Acute TEDs/SCD's - ambulatory, under the age of 40, no chemical DVT ppx indicated. (8) Discharge planning issues: Current visit: Yes Status: Acute Continues to require hospitalization. [facility] [place] appointment on Monday with GI. Needs a PCP. Interested in alcohol rehab on discharge, Subjective Interval history since last seen: Ms Robin felt earlier today that ativan was not controlling her withdrawal. She did receive 3 mg of ativan at 14:42 for her CIWA score of 18 after having 3 mg given at around 10 am for a CIWA score of 17. Her clonazepam was changed to librium, of which she has had 1 dose so far. She continues to report hearing a radio and seeing things our of her peripheral vision. She states she knows she is still withdrawing from alcohol. She drinks at least a 6 pack a day and states that, on discharge, she will check herself in to a rehab - she was given a list of facilities. Denies dizziness, chest pain, shortness of breath. Continues to have a cough. Reports nausea, denies vomiting. Reports her chronic band-like abdominal pain throughout her abdomen, at its baseline. Exam Narrative Exam Narrative: General: Very tired appearing female, mildly tremulous, does not appear well HEENT: EOMI, MMM Heart: RRR, tachycardic but better than yesterday Lungs: CTAB GI: abdomen is soft, mildly distended, minimally tender Extremities: no obvious edema Objective Objective Clinical Data: Abnormal lab results 12/02/18 12/02/18 Range/Units 06:17 06:17 RBC 3.41 L (4.00-5.20) m/cumm Hgb 10.9 L (12.0-15.5) g/dL Hct 33.0 L (36.0-46.0) % MCV 96.8 H (80-95) fL RDW 14.8 H (11.7-14.6) % Absolute Monocytes 0.75 H (0.11-0.7) k/cumm Anion Gap 12.0 H (3-11) mmol/L BUN 3 L (7-18) mg/dL Glucose 183 H (70-100) mg/dL Magnesium 1.6 L (1.8-2.4) mg/dL Vital Signs Temperature 37.1 C 12/02/18 11:18 Temperature Source Tympanic 12/02/18 11:18 Pulse 94 H 12/02/18 11:18 Pulse Rhythm Regular 12/02/18 11:28 Pulse 95 H 11/29/18 08:00 Respiratory Rate 18 12/02/18 11:18 Respiratory Effort Non-Labored 12/02/18 11:28 Respiratory Depth Normal 12/02/18 11:28 Respiratory Pattern Normal 12/02/18 11:28 Blood Pressure 124/78 12/02/18 11:18 Blood Pressure Mean 83 11/29/18 07:34 Blood Pressure Position Supine 11/29/18 04:15 Pulse Oximetry 99 12/02/18 11:18 Oxygen Delivery Method Room Air 12/02/18 11:18 Oxygen Flow Rate 0 12/02/18 11:18 Pain Level 8 12/02/18 03:15 Comment 12/02/18 03:15 Intake & Output 12/01/18 12/02/18 12/02/18 23:59 11:59 23:59 Intake Total 1340 / 2480 2450 / 3410 960 / 3410 Output Total 4850 / 4850 Balance 1340 / 630 -2400 / -1440 960 / -1440 Weight 53.5 kg Intake: IV Oral 1340 / 2480 2440 / 3400 960 / 3400 Output: Urine 4850 / 4850 Other: Urine Color Yellow Urine Appearance Clear Clear Urine Odor None Comment MIXED WITH BM Stool Size Small Stool Characteristics Soft Formed Voiding Methods Bedside Commode Laboratory Results WBC 6.21 k/cumm (4.4-10.8) 12/02/18 06:17 RBC 3.41 m/cumm (4.00-5.20) L 12/02/18 06:17 Hgb 10.9 g/dL (12.0-15.5) L 12/02/18 06:17 Hct 33.0 % (36.0-46.0) L 12/02/18 06:17 MCV 96.8 fL (80-95) H 12/02/18 06:17 MCH 32.0 pg (27.0-33.0) 12/02/18 06:17 MCHC 33.0 g/dL (32.0-36.0) 12/02/18 06:17 RDW 14.8 % (11.7-14.6) H 12/02/18 06:17 Plt Count 379 x1000/uL (130-400) D 12/02/18 06:17 MPV 9.4 fL (8.0-11.0) 12/02/18 06:17 Immature Gran % See Differential 12/02/18 06:17 Neutrophils % 56.0 12/02/18 06:17 Band Neutrophils % 3.0 % 12/02/18 06:17 Lymphocytes % 25.0 12/02/18 06:17 Atypical Lymphs % 2.0 12/02/18 06:17 Monocytes % 12.0 12/02/18 06:17 Eosinophils % 0.0 12/02/18 06:17 Basophils % 0.0 12/02/18 06:17 Metamyelocytes % 2.0 % 12/02/18 06:17 Absolute Neutrophils 3.66 k/cumm (1.2-6.7) 12/02/18 06:17 Absolute Lymphocytes 1.68 k/cumm (1.2-3.4) 12/02/18 06:17 Absolute Monocytes 0.75 k/cumm (0.11-0.7) H 12/02/18 06:17 Absolute Eosinophils 0.00 k/cumm (0.0-0.7) 12/02/18 06:17 Absolute Basophils 0.00 k/cumm (0.0-0.2) 12/02/18 06:17 Differential Comment Manual differential 12/02/18 06:17 RBC Morphology See below 12/02/18 06:17 Polychromasia Present 12/02/18 06:17 Anisocytosis 1+ 12/02/18 06:17 Haptoglobin 182 mg/dL (32-197) 11/27/18 12:01 PT 11.3 sec (9.3-11.0) H 11/26/18 13:22 INR 1.1 (0.9-1.1) 11/26/18 13:22 Fibrinogen 461 mg/dL (171-384) H 11/27/18 10:20 D-Dimer 1194 ng/mlFEU (<500) H 11/27/18 10:20 Sodium 139 mmol/L (136-145) 12/02/18 06:17 Potassium 3.9 mmol/L (3.5-5.1) 12/02/18 06:17 Chloride 102 mmol/L (98-107) 12/02/18 06:17 Carbon Dioxide 25.0 mmol/L (21.0-32.0) 12/02/18 06:17 Anion Gap 12.0 mmol/L (3-11) H 12/02/18 06:17 BUN 3 mg/dL (7-18) L 12/02/18 06:17 Creatinine 0.70 mg/dL (0.55-1.02) 12/02/18 06:17 Estimated GFR/1.73 m2 >= 60.00 (mL/min/1.73m2) 12/02/18 06:17 Glucose 183 mg/dL (70-100) H 12/02/18 06:17 Hemoglobin A1c 5.9 % (4.5-6.2) 12/02/18 06:17 Calcium 8.7 mg/dL (8.5-10.1) 12/02/18 06:17 Phosphorus 2.8 mg/dL (2.6-4.7) 11/26/18 21:15 Magnesium 1.6 mg/dL (1.8-2.4) L 12/02/18 06:17 Total Bilirubin 0.4 mg/dL (0.2-1.0) 11/30/18 06:05 AST 66 U/L (15-37) H 11/30/18 06:05 ALT 92 U/L (12-78) H 11/30/18 06:05 Alkaline Phosphatase 342 U/L (46-116) H 11/30/18 06:05 Ammonia 18 umol/L (11-32) 12/02/18 11:25 Total Protein 6.4 g/dL (6.4-8.2) 11/30/18 06:05 Albumin 2.8 g/dL (3.4-5.0) L 11/30/18 06:05 Lipase 96 U/L (73-393) 11/26/18 13:22 Procalcitonin 0.1 ng/mL 11/28/18 10:50 TSH 2.34 uIU/mL (0.358-3.74) 11/28/18 10:50 Cortisol 10 ug/dL 11/28/18 10:50 Urine Color Yellow (Yellow) 11/26/18 14:50 Urine Clarity Clear 11/26/18 14:50 Urine pH 7.0 (5-8) 11/26/18 14:50 Ur Specific [place] <= 1.005 (1.005-1.025) 11/26/18 14:50 Urine Protein 30 mg/dL (Negative) H 11/26/18 14:50 Urine Ketones 15 mg/dL (Negative) H 11/26/18 14:50 Urine Blood Small (Negative) H 11/26/18 14:50 Urine Nitrite Negative (Negative) 11/26/18 14:50 Urine Bilirubin Negative (Negative) 11/26/18 14:50 Urine Urobilinogen 0.2 EU/dL (Up TO 0.2) 11/26/18 14:50 Ur Leukocyte Esterase Small (Negative) H 11/26/18 14:50 Urine RBC 5-10 (0-2) H 11/26/18 14:50 Urine WBC 20-50 HPF (0-5) 11/26/18 14:50 Ur Epithelial Cells Few HPF (Negative) 11/26/18 14:50 Urine Crystals Negative HPF (Negative) 11/26/18 14:50 Urine Bacteria Negative HPF (Negative) 11/26/18 14:50 Urine Casts Negative LPF (Negative) 11/26/18 14:50 Urine Mucus Negative (Negative) 11/26/18 14:50 Ur Culture Indicated? Yes 11/26/18 14:50 Urine Glucose Negative mg/dL (Negative) 11/26/18 14:50 Stool Collect Duration Cancelled 11/29/18 00:44 Stool Weight Cancelled 11/29/18 00:44 Stool Percent Fat Cancelled 11/29/18 00:44 Stool Total Fats Cancelled 11/29/18 00:44 Urine Opiates Screen Negative (Negative) 11/26/18 14:50 Urine Methadone Screen Negative (Negative) 11/26/18 14:50 Acetaminophen < 2 ug/mL (10-30) L 11/26/18 13:22 Ur Barbiturates Screen Negative (Negative) 11/26/18 14:50 Ur Tricyclics Screen Negative (Negative) 11/26/18 14:50 Ur Amphetamines Screen Negative (Negative) 11/26/18 14:50 U Benzodiazepines Scrn Negative (Negative) 11/26/18 14:50 Urine Cocaine Screen Negative (Negative) 11/26/18 14:50 Ur THC Screen Negative (Negative) 11/26/18 14:50 Ethyl Alcohol 30.3 mg/dL (<3) 11/26/18 13:22
[2018-12-02] MEDS: chlordiazePOXIDE 25 MG CAP 50 MG PO ×2 (16:44→23:19)
[2018-12-02] MEDS: levoFLOXacin 500 MG, levoFLOXacin 250 MG 750 MG PO (17:54)
--- NOTE | 2018-12-02 17:56 | PDOC.CMPRO ---
- If Service Date Differs Date of service: 12/02/18 Time of Service: 17:56 Care Management Progress Note S/O-Laina was sitting up in bed with the room darkened when CM came to see her. Her CIWA scores were up to 15 again this morning after being low at night. Laina stated that she is anxious to go home. She would like to have a couple of days with her family before she goes to [facility] [place] on Monday. She expresses a desire to stop drinking for good this time. CM encouraged her to reach out to some of the programs in the area; she was provided with information about several of these by CM. A-38 yo woman admitted with severe hyponatremia and ETOH abuse. P-Laina is undergoing treatment for severe hyponatremia and alcohol withdrawal. Her CIWA scores remain high, especially early in the day. When discharged, Laina would likely benefit from substance abuse treatment. CM will continue to provide support to patient, family and discharge planning process.
--- NOTE | 2018-12-02 18:01 | CMPROGNOTE_ITS ---
- If Service Date Differs Date of service: 12/02/18 Time of Service: 17:56 Care Management Progress Note S/O-Laina was sitting up in bed with the room darkened when CM came to see her. Her CIWA scores were up to 15 again this morning after being low at night. Laina stated that she is anxious to go home. She would like to have a couple of days with her family before she goes to [facility] [place] [place] on Monday. She expresses a desire to stop drinking for good this time. CM encouraged her to reach out to some of the programs in the area; she was provided with information about several of these by CM. A-38 yo woman admitted with severe hyponatremia and ETOH abuse. P-Laina is undergoing treatment for severe hyponatremia and alcohol withdrawal. Her CIWA scores remain high, especially early in the day. When discharged, Laina would likely benefit from substance abuse treatment. CM will continue to provide support to patient, family and discharge planning process.
--- NOTE | 2018-12-02 22:51 | NUR.NOTE ---
Nursing Note: At approximately 2015 patient scored a 23 on CIWA scale. CCRN Christiane Whelan was notified and notified MD per protocol. Patient given lorazepam per protocol.
[2018-12-03] VITALS (14 sets, daily range): BP systolic 100–127; BP diastolic 60–78; PULSE 99–158; RESP 16–20; TEMP 36.7–38; O2SAT 96–99
[2018-12-03] MEDS: LORazepam 1 MG TAB PO/SL ×8 (01:20→23:37)
[2018-12-03] MEDS: Acetaminophen 500 MG TAB PO ×2 (05:27→12:59)
[2018-12-03 07:14] LABS: HCT 32.9 % (36.0-46.0); HGB 10.8 g/dL (12.0-15.5); Mean Corp. HGB Concentration 32.8 g/dL (32.0-36.0); Mean Corpuscular Hemoglobin 32.1 pg (27.0-33.0); Mean Corpuscular Volume 97.9 fL (80-95); Mean Platelet Volume 9.5 fL (8.0-11.0); RBC 3.36 m/cumm (4.00-5.20); RBC Distribution Width 15.2 % (11.7-14.6); White Blood Cell Count 7.09 k/cumm (4.4-10.8)
[2018-12-03] MEDS: chlordiazePOXIDE 25 MG CAP 50 MG PO ×3 (07:24→23:37)
[2018-12-03] MEDS: Pantoprazole 40 MG TABCR PO (07:24)
[2018-12-03 07:29] LABS: BUN 3 mg/dL (7-18); CREATININE 0.79 mg/dL (0.55-1.02); Calcium 8.4 mg/dL (8.5-10.1); Chloride 99 mmol/L (98-107); Glucose 216 mg/dL (70-100); Magnesium 1.7 mg/dL (1.8-2.4); Potassium 3.6 mmol/L (3.5-5.1); Sodium 137 mmol/L (136-145)
--- NOTE | 2018-12-03 07:59 | DI.VRAD_ITS ---
EXAM: XR Chest, 1 View EXAM DATE/TIME: 12/03/2018 12:00 AM CLINICAL HISTORY: 38 years old, female; Condition or disease; Other: F/u pneumonia TECHNIQUE: Imaging protocol: XR of the chest, 1 view. COMPARISON: CR CHEST 2 VIEWS PA,LAT 01/30/2018 7:07 PM FINDINGS: Lungs: Clear lungs. Pleural space: No pneumothorax. No sizable pleural effusion. Heart/Mediastinum: No cardiomegaly. Bones/joints: Unremarkable. IMPRESSION: Clear lungs. Dictated and Authenticated by: Kodak Salazar MD. Ordering:JHON Yi MD
[2018-12-03 08:05] LABS: Absolute Basophil Count 0.07 k/cumm (0.0-0.2); Absolute Eosinophil Count 0.14 k/cumm (0.0-0.7); Absolute Monocyte Count 0.99 k/cumm (0.11-0.7); Absolute Neutrophil Count 4.04 k/cumm (1.2-6.7)
[2018-12-03 08:07] LABS: Diff Comment Manual Differential; Polychromasia Present
[2018-12-03 08:08] LABS: Platelet Count 453 x1000/uL (130-400)
--- NOTE | 2018-12-03 08:30 | DI.RAD_ITS ---
SYMPTOMS/DIAGNOSIS: F/U PNEUMONIA PORTABLE CHEST: There are no prior comparison exams. Leads overlie the chest. The requisition indicates follow up pneumonia. No infiltrate or effusion is identified. The heart size is normal. IMPRESSION: Negative chest x-ray.
[2018-12-03] MEDS: Sertraline 50 MG TAB PO (08:51)
[2018-12-03] MEDS: Sucralfate 1 GM TAB PO ×2 (08:51→20:08)
[2018-12-03] MEDS: Thiamine 100 MG TAB PO (08:51)
[2018-12-03] MEDS: Folic Acid 1 MG TAB PO (08:51)
[2018-12-03] MEDS: Multivitamin TAB 1 TAB PO (08:51)
--- NOTE | 2018-12-03 09:51 | PDOC.CMPRO ---
- If Service Date Differs Date of service: 12/03/18 Time of Service: 09:51 Care Management Progress Note S/O-Laina was again found sitting in bed in a darkened room. She stated she wasn't feeling good but was vague when asked to describe what was wrong. She states she had a fever last night and agrees that her visit to [facility] [place] should be postponed until she is better. Her CIWA scores were reported to be as high as 25 during the night. A-38 yo woman admitted with severe hyponatremia and ETOH abuse. P-Laina is undergoing treatment for severe hyponatremia and alcohol withdrawal. Her CIWA scores remain high, especially early in the day. When discharged, Laina would likely benefit from substance abuse treatment. CM will continue to provide support to patient, family and discharge planning process.
[2018-12-03] MEDS: LORazepam 1 MG TAB 2 MG PO (10:32)
[2018-12-03 10:47] LABS: Bilirubin Negative (Negative); Blood Negative (Negative); Clarity Clear; Glucose Negative (Negative); Ketones Negative (Negative); Leukocyte Esterase Negative (Negative); Nitrite Negative (Negative); Specific Gravity <= 1.005 (1.005-1.025); Urobilinogen 0.2 EU/dL (Up TO 0.2); pH 6.5 (5-8)
--- NOTE | 2018-12-03 11:18 | NUR.NOTE ---
Nursing Note: Patient awoke at 1015 having a panic attack. Patient was hyperventilating and sweating. Cool cloth provided, fan provided, presence provided and ativan PO given.
--- NOTE | 2018-12-03 15:20 | PT.INNT ---
Date of service: 12/03/18 Time of Service: 15:21 PT Notes 12/03/18 Patient refused both morning and afternoon PT sessions, stating in the morning that she does not feel well today. Patient id not offer a reason in afternoon, just kept her eyes closed and shook her head to indicate that she did not want to participate in PT.
--- NOTE | 2018-12-03 16:25 | PGE_ITS ---
Date of Service Date of service: 12/03/18 Time of Service: 16:17 Assessment and Plan (1) Alcohol withdrawal: Current visit: Yes Status: Acute With high CIWA scores. Continue combination of scheduled librium and prn ativan per CIWA. I feel the patient is safe on [facility] floor at this time as long as she is being monitored on telemetry. She has not required IV ativan. Patient is interested in alcohol rehab on discharge. (2) Pancreatic pseudocyst: Current visit: No Status: Chronic May or may not be contributing to her symptoms of nausea and abdominal discomfort. EUS/drainage at [facility] [facility] is being rescheduled in light of active alcohol withdrawal. (3) Nausea & vomiting: Current visit: Yes Status: Acute Improved with Phenergan. Continue PPI, phenergan. (4) Healthcare-associated pneumonia: Current visit: Yes Status: Acute Improved and tolerating PO abx. On levofloxacin. Clindamycin d/c'ed. CXR clear, but continues to have some symptoms. Continue levofloxacin. Paying attention to the fever this morning. (5) Anxiety: Current visit: No Status: Chronic Chronic and severe. Sertraline started on this admission. Clonazepam changed to librium. Will need outpatient follow up. (6) Chronic pancreatitis: Current visit: No Status: Chronic for follow up with GI at [facility] [place] [facility]. Needs to stop drinking. Stool studies pending. (7) DVT prophylaxis: Current visit: No Status: Acute TEDs/SCD's - ambulatory, under the age of 40, no chemical DVT ppx indicated. (8) Discharge planning issues: Current visit: Yes Status: Acute Continues to require hospitalization. [facility] [place] [facility] appointment with GI for EUS/pseudocyst aspiration is being rescheduled Needs a PCP. Interested in alcohol rehab on discharge, Subjective Interval history since last seen: Ms Robin states that today is a better day than yesterday was. She thinks scheduled librium and prn ativan are a good combination for her. Her CIWA scores overnight were 23, 16, 16, 15. Her noon CIWA score was 20, but she has been sleeping (arousable) for the remainder of the checks this afternoon. She denies dizziness, chest pain, shortness of breath. Cough is getting better. A little nauseated, but no vomiting. Tolerating PO. Had a fever at 5 am this morning. Exam Narrative Exam Narrative: General: Very tired appearing female, less tremulous than yesterday, easily arousable, though initially asleep, NAD HEENT: EOMI, MMM Heart: RRR, not as tachycardic as yesterday Lungs: CTAB GI: abdomen is soft, mildly distended, minimally tender Extremities: no obvious edema Objective Objective Clinical Data: Abnormal lab results 11/30/18 12/03/18 12/03/18 Range/Units 13:05 06:10 06:10 RBC 3.36 L (4.00-5.20) m/cumm Hgb 10.8 L (12.0-15.5) g/dL Hct 32.9 L (36.0-46.0) % MCV 97.9 H (80-95) fL RDW 15.2 H (11.7-14.6) % Plt Count 453 H (130-400) x1000/uL Absolute Monocytes 0.99 H (0.11-0.7) k/cumm Anion Gap 12.0 H (3-11) mmol/L BUN 3 L (7-18) mg/dL Glucose 216 H (70-100) mg/dL Calcium 8.4 L (8.5-10.1) mg/dL Magnesium 1.7 L (1.8-2.4) mg/dL Stool Percent Fat 29 H (< 20) % fat Vital Signs Temperature 37.2 C 12/03/18 16:06 Temperature Source Tympanic 12/03/18 16:06 Pulse 99 H 12/03/18 16:06 Pulse Rhythm Regular 12/03/18 07:30 Pulse 95 H 11/29/18 08:00 Respiratory Rate 16 12/03/18 16:06 Respiratory Effort Non-Labored 12/03/18 07:30 Respiratory Depth Normal 12/03/18 07:30 Respiratory Pattern Normal 12/03/18 07:30 Blood Pressure 100/60 12/03/18 16:06 Blood Pressure Mean 83 11/29/18 07:34 Blood Pressure Position Supine 11/29/18 04:15 Pulse Oximetry 98 12/03/18 16:06 Oxygen Delivery Method Room Air 12/03/18 16:06 Oxygen Flow Rate 0 12/03/18 16:06 Pain Level 0 12/03/18 16:06 Comment 12/02/18 03:15 Intake & Output 12/02/18 12/03/18 12/03/18 23:59 11:59 23:59 Intake Total 1930 / 4380 880 / 880 Output Total 2750 / 7600 600 / 2400 1800 / 2400 Balance -820 / -3220 280 / -1520 -1800 / -1520 Weight 54.5 kg Intake: IV Oral 1920 / 4360 880 / 880 Output: Urine 2750 / 7600 600 / 2400 1800 / 2400 Other: Urine Color Pale Yellow Pale Yellow Yellow Urine Appearance Clear Clear Clear Urine Odor Normal None Comment multiple voids Stool Size Small Stool Characteristics Soft Formed Brown Voiding Methods Bedside Commode Bedside Commode Bedside Commode Laboratory Results WBC 7.09 k/cumm (4.4-10.8) 12/03/18 06:10 RBC 3.36 m/cumm (4.00-5.20) L 12/03/18 06:10 Hgb 10.8 g/dL (12.0-15.5) L 12/03/18 06:10 Hct 32.9 % (36.0-46.0) L 12/03/18 06:10 MCV 97.9 fL (80-95) H 12/03/18 06:10 MCH 32.1 pg (27.0-33.0) 12/03/18 06:10 MCHC 32.8 g/dL (32.0-36.0) 12/03/18 06:10 RDW 15.2 % (11.7-14.6) H 12/03/18 06:10 Plt Count 453 x1000/uL (130-400) H 12/03/18 06:10 MPV 9.5 fL (8.0-11.0) 12/03/18 06:10 Immature Gran % See Differential 12/03/18 06:10 Neutrophils % 57.0 12/03/18 06:10 Band Neutrophils % 3.0 % 12/02/18 06:17 Lymphocytes % 24.0 12/03/18 06:10 Atypical Lymphs % 2.0 12/02/18 06:17 Monocytes % 14.0 12/03/18 06:10 Eosinophils % 2.0 12/03/18 06:10 Basophils % 1.0 12/03/18 06:10 Metamyelocytes % 2.0 % 12/02/18 06:17 Myelocytes % 2.0 % 12/03/18 06:10 Absolute Neutrophils 4.04 k/cumm (1.2-6.7) 12/03/18 06:10 Absolute Lymphocytes 1.70 k/cumm (1.2-3.4) 12/03/18 06:10 Absolute Monocytes 0.99 k/cumm (0.11-0.7) H 12/03/18 06:10 Absolute Eosinophils 0.14 k/cumm (0.0-0.7) 12/03/18 06:10 Absolute Basophils 0.07 k/cumm (0.0-0.2) 12/03/18 06:10 Differential Comment Manual differential 12/03/18 06:10 RBC Morphology See below 12/03/18 06:10 Polychromasia Present 12/03/18 06:10 Anisocytosis 1+ 12/02/18 06:17 Haptoglobin 182 mg/dL (32-197) 11/27/18 12:01 PT 11.3 sec (9.3-11.0) H 11/26/18 13:22 INR 1.1 (0.9-1.1) 11/26/18 13:22 Fibrinogen 461 mg/dL (171-384) H 11/27/18 10:20 D-Dimer 1194 ng/mlFEU (<500) H 11/27/18 10:20 Sodium 137 mmol/L (136-145) 12/03/18 06:10 Potassium 3.6 mmol/L (3.5-5.1) 12/03/18 06:10 Chloride 99 mmol/L (98-107) 12/03/18 06:10 Carbon Dioxide 26.0 mmol/L (21.0-32.0) 12/03/18 06:10 Anion Gap 12.0 mmol/L (3-11) H 12/03/18 06:10 BUN 3 mg/dL (7-18) L 12/03/18 06:10 Creatinine 0.79 mg/dL (0.55-1.02) 12/03/18 06:10 Estimated GFR/1.73 m2 >= 60.00 (mL/min/1.73m2) 12/03/18 06:10 Glucose 216 mg/dL (70-100) H 12/03/18 06:10 Hemoglobin A1c 5.9 % (4.5-6.2) 12/02/18 06:17 Calcium 8.4 mg/dL (8.5-10.1) L 12/03/18 06:10 Phosphorus 2.8 mg/dL (2.6-4.7) 11/26/18 21:15 Magnesium 1.7 mg/dL (1.8-2.4) L 12/03/18 06:10 Total Bilirubin 0.4 mg/dL (0.2-1.0) 11/30/18 06:05 AST 66 U/L (15-37) H 11/30/18 06:05 ALT 92 U/L (12-78) H 11/30/18 06:05 Alkaline Phosphatase 342 U/L (46-116) H 11/30/18 06:05 Ammonia 18 umol/L (11-32) 12/02/18 11:25 Total Protein 6.4 g/dL (6.4-8.2) 11/30/18 06:05 Albumin 2.8 g/dL (3.4-5.0) L 11/30/18 06:05 Lipase 96 U/L (73-393) 11/26/18 13:22 Procalcitonin 0.1 ng/mL 11/28/18 10:50 TSH 2.34 uIU/mL (0.358-3.74) 11/28/18 10:50 Cortisol 10 ug/dL 11/28/18 10:50 Urine Color Yellow (Yellow) 12/03/18 10:20 Urine Clarity Clear 12/03/18 10:20 Urine pH 6.5 (5-8) 12/03/18 10:20 Ur Specific [place] <= 1.005 (1.005-1.025) 12/03/18 10:20 Urine Protein Negative mg/dL (Negative) 12/03/18 10:20 Urine Ketones Negative mg/dL (Negative) 12/03/18 10:20 Urine Blood Negative (Negative) 12/03/18 10:20 Urine Nitrite Negative (Negative) 12/03/18 10:20 Urine Bilirubin Negative (Negative) 12/03/18 10:20 Urine Urobilinogen 0.2 EU/dL (Up TO 0.2) 12/03/18 10:20 Ur Leukocyte Esterase Negative (Negative) 12/03/18 10:20 Urine RBC 5-10 (0-2) H 11/26/18 14:50 Urine WBC 20-50 HPF (0-5) 11/26/18 14:50 Ur Epithelial Cells Few HPF (Negative) 11/26/18 14:50 Urine Crystals Negative HPF (Negative) 11/26/18 14:50 Urine Bacteria Negative HPF (Negative) 11/26/18 14:50 Urine Casts Negative LPF (Negative) 11/26/18 14:50 Urine Mucus Negative (Negative) 11/26/18 14:50 Ur Culture Indicated? Yes 11/26/18 14:50 Urine Glucose Negative mg/dL (Negative) 12/03/18 10:20 Stool Collect Duration Random h 11/30/18 13:05 Stool Weight 8 g 11/30/18 13:05 Stool Percent Fat 29 % fat (< 20) H 11/30/18 13:05 Stool Total Fats Not Applicable 11/30/18 13:05 Urine Opiates Screen Negative (Negative) 11/26/18 14:50 Urine Methadone Screen Negative (Negative) 11/26/18 14:50 Acetaminophen < 2 ug/mL (10-30) L 11/26/18 13:22 Ur Barbiturates Screen Negative (Negative) 11/26/18 14:50 Ur Tricyclics Screen Negative (Negative) 11/26/18 14:50 Ur Amphetamines Screen Negative (Negative) 11/26/18 14:50 U Benzodiazepines Scrn Negative (Negative) 11/26/18 14:50 Urine Cocaine Screen Negative (Negative) 11/26/18 14:50 Ur THC Screen Negative (Negative) 11/26/18 14:50 Ethyl Alcohol 30.3 mg/dL (<3) 11/26/18 13:22 Tiss Transglutamin IgG <1.2 U/mL 11/28/18 10:50 Tiss Transglutamin IgA <1.2 U/mL 11/28/18 10:50 CXR 12/03/18: Negative chest x-ray.
[2018-12-03] MEDS: MAGNESIUM SULFATE 2 GM/50 ML BAG IVPB (17:11)
[2018-12-03] MEDS: levoFLOXacin 500 MG, levoFLOXacin 250 MG 750 MG PO (17:57)
[2018-12-04] VITALS (13 sets, daily range): BP systolic 99–122; BP diastolic 56–72; PULSE 88–117; RESP 16–19; TEMP 36.4–37.7; O2SAT 96–100
[2018-12-04 07:06] LABS: HGB 10.6 g/dL (12.0-15.5); Mean Corp. HGB Concentration 32.1 g/dL (32.0-36.0); Mean Corpuscular Hemoglobin 31.8 pg (27.0-33.0); Mean Corpuscular Volume 99.1 fL (80-95); Mean Platelet Volume 9.1 fL (8.0-11.0); Platelet Count 532 x1000/uL (130-400); RBC 3.33 m/cumm (4.00-5.20); RBC Distribution Width 15.3 % (11.7-14.6); White Blood Cell Count 7.97 k/cumm (4.4-10.8)
[2018-12-04 07:14] LABS: ALT 44 U/L (12-78); AST 28 U/L (15-37); Albumin 2.8 g/dL (3.4-5.0); Alkaline Phosphatase 272 U/L (46-116); Anion Gap 5.5 mmol/L (3-11); BUN 4 mg/dL (7-18); Bilirubin, Direct 0.12 mg/dL (0.00-0.20); Bilirubin, Total 0.3 mg/dL (0.2-1.0); CO2 26.5 mmol/L (21.0-32.0); CREATININE 0.59 mg/dL (0.55-1.02); Calcium 8.6 mg/dL (8.5-10.1); Chloride 102 mmol/L (98-107); Glucose 182 mg/dL (70-100); Magnesium 2.1 mg/dL (1.8-2.4); Potassium 3.7 mmol/L (3.5-5.1); Sodium 134 mmol/L (136-145); Total Protein 6.3 g/dL (6.4-8.2)
[2018-12-04 07:29] LABS: Absolute Eosinophil Count 0.08 k/cumm (0.0-0.7); Absolute Lymphocyte Count 1.59 k/cumm (1.2-3.4); Absolute Neutrophil Count 4.62 k/cumm (1.2-6.7); Atypical Lymphocytes % 1; Diff Comment Manual Differential; Polychromasia Present
--- NOTE | 2018-12-04 08:06 | PT.INNT ---
Date of service: 12/04/18 Time of Service: 08:07 PT Notes 12/04/18 Patient refusing to participate in PT this morning. She reports that she has been walking around within her room, and that she is able to do so without an assistive device or wall/furniture surfing, without a fear of falling or anxiety.
[2018-12-04] MEDS: Pantoprazole 40 MG TABCR PO (08:25)
[2018-12-04] MEDS: chlordiazePOXIDE 25 MG CAP 50 MG PO (08:26)
[2018-12-04] MEDS: LORazepam 1 MG TAB PO/SL ×4 (08:35→23:59)
[2018-12-04] MEDS: Sertraline 50 MG TAB PO (09:48)
[2018-12-04] MEDS: Sucralfate 1 GM TAB PO ×2 (09:48→20:56)
[2018-12-04] MEDS: Folic Acid 1 MG TAB PO (09:49)
[2018-12-04] MEDS: Multivitamin TAB 1 TAB PO (09:49)
[2018-12-04] MEDS: Thiamine 100 MG TAB PO (09:49)
--- NOTE | 2018-12-04 11:44 | PDOC.CMPRO ---
Care Management Progress Note S/O-Met with Tamica today. Her room is completely dark when CM enters. States she has a headache. CIWA is currently 6. Asked her about her willingness to consider a rehab facility in [place], but she continues to say she only wants to go to the facility in [place] where she is currently on a waiting list and does NOT want to consider something in [place]. Again offered to set her up with a [employer], but she declines this also, preferring to wait until after she is discharged to make that contact. A-38 yo woman admitted with severe hyponatremia and ETOH abuse. P-She continues treatment for severe hyponatremia and ETOH withdrawal. CM will continue to provide support re discharge planning process.
[2018-12-04] MEDS: Promethazine 25 MG TAB PO ×2 (13:01→21:04)
[2018-12-04] MEDS: chlordiazePOXIDE 25 MG CAP PO ×2 (15:17→23:58)
--- NOTE | 2018-12-04 15:22 | W.PM.PROGNOT ---
Date of Service Date of service: 12/04/18 Time of Service: 15:22 Assessment and Plan (1) Alcohol withdrawal: Current visit: Yes Status: Acute CIWA scores are better. Start to taper librium. Continue prn ativan per CIWA. Continue to monitor on tele. Patient is interested in alcohol rehab on discharge. (2) Pancreatic pseudocyst: Current visit: No Status: Chronic May or may not be contributing to her symptoms of nausea and abdominal discomfort. EUS/drainage at [facility] postoponed in light of active alcohol withdrawal. (3) Nausea & vomiting: Current visit: Yes Status: Acute Improved with Phenergan. Continue PPI, phenergan. (4) Healthcare-associated pneumonia: Current visit: Yes Status: Acute Improved and tolerating PO abx. On levofloxacin. Clindamycin d/c'ed. CXR clear, but continues to have some symptoms. Continue levofloxacin. No fevers in the last 24 hours. (5) Anxiety: Current visit: No Status: Chronic Chronic and severe. Continue sertrazline. Will need outpatient follow up. (6) Chronic pancreatitis: Current visit: No Status: Chronic for follow up with GI at [facility]. Needs to stop drinking. Stool studies pending. (7) DVT prophylaxis: Current visit: No Status: Acute TEDs/SCD's - ambulatory, under the age of 40, no chemical DVT ppx indicated. (8) Discharge planning issues: Current visit: Yes Status: Acute Continues to require hospitalization. [facility] appointment with GI for EUS/pseudocyst aspiration postponed. Needs a PCP. Interested in alcohol rehab on discharge, Subjective Interval history since last seen: Zahraa states she is feeling better today. She only required 2 mg of PO ativan total today so far. Her CIWA scores have all been under 10 for the last 12 hours. She states her thinking is more clear today and she is feeling better overall. Denies dizziness, chest pain, shortness of breath, nausea. Her cough is still there, but better. Exam Narrative Exam Narrative: General: Very tired appearing female, looks better than yesterday, more awake, A&Ox3, not tremulous HEENT: EOMI, MMM Heart: RRR, no m/r/g, does not sound tachycardic when I am listening to her Lungs: CTAB GI: abdomen is soft, mildly distended, minimally tender Extremities: no obvious edema Objective Objective Clinical Data: Abnormal lab results 12/04/18 12/04/18 Range/Units 06:30 06:30 RBC 3.33 L (4.00-5.20) m/cumm Hgb 10.6 L (12.0-15.5) g/dL Hct 33.0 L (36.0-46.0) % MCV 99.1 H (80-95) fL RDW 15.3 H (11.7-14.6) % Plt Count 532 H (130-400) x1000/uL Absolute Monocytes 1.20 H (0.11-0.7) k/cumm Sodium 134 L (136-145) mmol/L BUN 4 L (7-18) mg/dL Glucose 182 H (70-100) mg/dL Alkaline Phosphatase 272 H (46-116) U/L Total Protein 6.3 L (6.4-8.2) g/dL Albumin 2.8 L (3.4-5.0) g/dL Vital Signs Temperature 37.7 C H 12/04/18 14:54 Temperature Source Tympanic 12/04/18 14:54 Pulse 100 H 12/04/18 14:54 Pulse Rhythm Regular 12/04/18 00:32 Pulse 95 H 11/29/18 08:00 Respiratory Rate 17 12/04/18 14:54 Respiratory Effort Non-Labored 12/04/18 00:32 Respiratory Depth Normal 12/04/18 00:32 Respiratory Pattern Normal 12/04/18 00:32 Blood Pressure 122/72 12/04/18 14:54 Blood Pressure Mean 83 11/29/18 07:34 Blood Pressure Position Supine 11/29/18 04:15 Pulse Oximetry 100 12/04/18 14:54 Oxygen Delivery Method Room Air 12/04/18 14:54 Oxygen Flow Rate 0 12/04/18 14:54 Pain Level 9 12/04/18 14:54 Comment 12/02/18 03:15 Intake & Output 12/03/18 12/04/18 12/04/18 23:59 11:59 23:59 Intake Total 480 / 1360 1050 / 1290 240 / 1290 Output Total 3700 / 4300 Balance -3220 / -2940 1050 / 1290 240 / 1290 Weight 56.9 kg Intake: Oral 480 / 1360 1050 / 1290 240 / 1290 Output: Urine 3700 / 4300 Other: Urine Color Straw Pale Yellow Urine Appearance Clear Clear Urine Odor Normal None Stool Size Moderate Moderate Stool Characteristics Soft Soft Formed Formed Brown Brown Voiding Methods Bedside Commode Bedside Commode Laboratory Results WBC 7.97 k/cumm (4.4-10.8) 12/04/18 06:30 RBC 3.33 m/cumm (4.00-5.20) L 12/04/18 06:30 Hgb 10.6 g/dL (12.0-15.5) L 12/04/18 06:30 Hct 33.0 % (36.0-46.0) L 12/04/18 06:30 MCV 99.1 fL (80-95) H 12/04/18 06:30 MCH 31.8 pg (27.0-33.0) 12/04/18 06:30 MCHC 32.1 g/dL (32.0-36.0) 12/04/18 06:30 RDW 15.3 % (11.7-14.6) H 12/04/18 06:30 Plt Count 532 x1000/uL (130-400) H 12/04/18 06:30 MPV 9.1 fL (8.0-11.0) 12/04/18 06:30 Immature Gran % See Differential 12/04/18 06:30 Neutrophils % 58.0 12/04/18 06:30 Band Neutrophils % 3.0 % 12/02/18 06:17 Lymphocytes % 19.0 12/04/18 06:30 Atypical Lymphs % 1 12/04/18 06:30 Monocytes % 15.0 12/04/18 06:30 Eosinophils % 1.0 12/04/18 06:30 Basophils % 0.0 12/04/18 06:30 Metamyelocytes % 3.0 % 12/04/18 06:30 Myelocytes % 3.0 % 12/04/18 06:30 Absolute Neutrophils 4.62 k/cumm (1.2-6.7) 12/04/18 06:30 Absolute Lymphocytes 1.59 k/cumm (1.2-3.4) 12/04/18 06:30 Absolute Monocytes 1.20 k/cumm (0.11-0.7) H 12/04/18 06:30 Absolute Eosinophils 0.08 k/cumm (0.0-0.7) 12/04/18 06:30 Absolute Basophils 0.00 k/cumm (0.0-0.2) 12/04/18 06:30 Differential Comment Manual differential 12/04/18 06:30 RBC Morphology See below 12/04/18 06:30 Polychromasia Present 12/04/18 06:30 Anisocytosis 1+ 12/02/18 06:17 Haptoglobin 182 mg/dL (32-197) 11/27/18 12:01 PT 11.3 sec (9.3-11.0) H 11/26/18 13:22 INR 1.1 (0.9-1.1) 11/26/18 13:22 Fibrinogen 461 mg/dL (171-384) H 11/27/18 10:20 D-Dimer 1194 ng/mlFEU (<500) H 11/27/18 10:20 Sodium 134 mmol/L (136-145) L 12/04/18 06:30 Potassium 3.7 mmol/L (3.5-5.1) 12/04/18 06:30 Chloride 102 mmol/L (98-107) 12/04/18 06:30 Carbon Dioxide 26.5 mmol/L (21.0-32.0) 12/04/18 06:30 Anion Gap 5.5 mmol/L (3-11) 12/04/18 06:30 BUN 4 mg/dL (7-18) L 12/04/18 06:30 Creatinine 0.59 mg/dL (0.55-1.02) 12/04/18 06:30 Estimated GFR/1.73 m2 >= 60.00 (mL/min/1.73m2) 12/04/18 06:30 Glucose 182 mg/dL (70-100) H 12/04/18 06:30 Hemoglobin A1c 5.9 % (4.5-6.2) 12/02/18 06:17 Calcium 8.6 mg/dL (8.5-10.1) 12/04/18 06:30 Phosphorus 2.8 mg/dL (2.6-4.7) 11/26/18 21:15 Magnesium 2.1 mg/dL (1.8-2.4) 12/04/18 06:30 Total Bilirubin 0.3 mg/dL (0.2-1.0) 12/04/18 06:30 Conjugated Bilirubin 0.12 mg/dL (0.00-0.20) 12/04/18 06:30 AST 28 U/L (15-37) 12/04/18 06:30 ALT 44 U/L (12-78) 12/04/18 06:30 Alkaline Phosphatase 272 U/L (46-116) H 12/04/18 06:30 Ammonia 18 umol/L (11-32) 12/02/18 11:25 Total Protein 6.3 g/dL (6.4-8.2) L 12/04/18 06:30 Albumin 2.8 g/dL (3.4-5.0) L 12/04/18 06:30 Lipase 96 U/L (73-393) 11/26/18 13:22 Procalcitonin 0.1 ng/mL 11/28/18 10:50 TSH 2.34 uIU/mL (0.358-3.74) 11/28/18 10:50 Cortisol 10 ug/dL 11/28/18 10:50 Urine Color Yellow (Yellow) 12/03/18 10:20 Urine Clarity Clear 12/03/18 10:20 Urine pH 6.5 (5-8) 12/03/18 10:20 Ur Specific [place] <= 1.005 (1.005-1.025) 12/03/18 10:20 Urine Protein Negative mg/dL (Negative) 12/03/18 10:20 Urine Ketones Negative mg/dL (Negative) 12/03/18 10:20 Urine Blood Negative (Negative) 12/03/18 10:20 Urine Nitrite Negative (Negative) 12/03/18 10:20 Urine Bilirubin Negative (Negative) 12/03/18 10:20 Urine Urobilinogen 0.2 EU/dL (Up TO 0.2) 12/03/18 10:20 Ur Leukocyte Esterase Negative (Negative) 12/03/18 10:20 Urine RBC 5-10 (0-2) H 11/26/18 14:50 Urine WBC 20-50 HPF (0-5) 11/26/18 14:50 Ur Epithelial Cells Few HPF (Negative) 11/26/18 14:50 Urine Crystals Negative HPF (Negative) 11/26/18 14:50 Urine Bacteria Negative HPF (Negative) 11/26/18 14:50 Urine Casts Negative LPF (Negative) 11/26/18 14:50 Urine Mucus Negative (Negative) 11/26/18 14:50 Ur Culture Indicated? Yes 11/26/18 14:50 Urine Glucose Negative mg/dL (Negative) 12/03/18 10:20 Stool Collect Duration Random h 11/30/18 13:05 Stool Weight 8 g 11/30/18 13:05 Stool Percent Fat 29 % fat (< 20) H 11/30/18 13:05 Stool Total Fats Not Applicable 11/30/18 13:05 Urine Opiates Screen Negative (Negative) 11/26/18 14:50 Urine Methadone Screen Negative (Negative) 11/26/18 14:50 Acetaminophen < 2 ug/mL (10-30) L 11/26/18 13:22 Ur Barbiturates Screen Negative (Negative) 11/26/18 14:50 Ur Tricyclics Screen Negative (Negative) 11/26/18 14:50 Ur Amphetamines Screen Negative (Negative) 11/26/18 14:50 U Benzodiazepines Scrn Negative (Negative) 11/26/18 14:50 Urine Cocaine Screen Negative (Negative) 11/26/18 14:50 Ur THC Screen Negative (Negative) 11/26/18 14:50 Ethyl Alcohol 30.3 mg/dL (<3) 11/26/18 13:22 Tiss Transglutamin IgG <1.2 U/mL 11/28/18 10:50 Tiss Transglutamin IgA <1.2 U/mL 11/28/18 10:50
--- NOTE | 2018-12-04 15:59 | CMPROGNOTE_ITS ---
Care Management Progress Note S/O-Met with Tamica today. Her room is completely dark when CM enters. States she has a headache. CIWA is currently 6. Asked her about her willingness to consider a rehab facility in [place], but she continues to say she only wants to go to the facility in [place] where she is currently on a waiting list and does NOT want to consider something in [place]. Again offered to set her up with a [employer], but she declines this also, preferring to wait until after she is discharged to make that contact. A-38 yo woman admitted with severe hyponatremia and ETOH abuse. P-She continues treatment for severe hyponatremia and ETOH withdrawal. CM will continue to provide support re discharge planning process.
[2018-12-04] MEDS: levoFLOXacin 500 MG, levoFLOXacin 250 MG 750 MG PO (17:05)
[2018-12-04] MEDS: Acetaminophen 500 MG TAB PO ×2 (17:06→21:05)
[2018-12-04] MEDS: Nicotine 21 MG/24 HR PATCH TD (17:11)
[2018-12-05 00:20] VITALS: PULSE 88
[2018-12-05 04:50] VITALS: BP 111/72; PULSE 63; RESP 16; TEMP 37; O2SAT 99
[2018-12-05] MEDS: LORazepam 1 MG TAB PO/SL ×2 (05:06→09:14)
[2018-12-05] MEDS: LORazepam 1 MG TAB 2 MG PO ×2 (05:07→13:10)
[2018-12-05 07:01] VITALS: PULSE 100
[2018-12-05 07:05] LABS: Abs Immature Grans 0.37 k/cumm (0.0-0.09); HCT 34.1 % (36.0-46.0); HGB 11.2 g/dL (12.0-15.5); Mean Corp. HGB Concentration 32.8 g/dL (32.0-36.0); Mean Corpuscular Hemoglobin 32.5 pg (27.0-33.0); Mean Corpuscular Volume 98.8 fL (80-95); Mean Platelet Volume 9.1 fL (8.0-11.0); Platelet Count 613 x1000/uL (130-400); RBC 3.45 m/cumm (4.00-5.20); White Blood Cell Count 8.23 k/cumm (4.4-10.8)
[2018-12-05 07:31] LABS: Anion Gap 6.6 mmol/L (3-11); BUN 4 mg/dL (7-18); CO2 27.4 mmol/L (21.0-32.0); CREATININE 0.69 mg/dL (0.55-1.02); Calcium 8.6 mg/dL (8.5-10.1); Chloride 101 mmol/L (98-107); Glucose 152 mg/dL (70-100); Magnesium 1.8 mg/dL (1.8-2.4); Potassium 4.1 mmol/L (3.5-5.1); Sodium 135 mmol/L (136-145)
[2018-12-05] MEDS: Thiamine 100 MG TAB PO (07:40)
[2018-12-05] MEDS: Multivitamin TAB 1 TAB PO (07:40)
[2018-12-05] MEDS: Pantoprazole 40 MG TABCR PO (07:40)
[2018-12-05] MEDS: Sucralfate 1 GM TAB PO (07:40)
[2018-12-05] MEDS: chlordiazePOXIDE 25 MG CAP PO (07:40)
[2018-12-05] MEDS: Folic Acid 1 MG TAB PO (07:41)
[2018-12-05] MEDS: Promethazine 25 MG TAB PO (07:41)
[2018-12-05] MEDS: Sertraline 50 MG TAB PO (07:41)
[2018-12-05 07:49] LABS: Absolute Eosinophil Count 0.16 k/cumm (0.0-0.7); Absolute Lymphocyte Count 1.32 k/cumm (1.2-3.4); Absolute Monocyte Count 1.15 k/cumm (0.11-0.7); Absolute Neutrophil Count 5.43 k/cumm (1.2-6.7); Atypical Lymphocytes % 1
[2018-12-05 07:50] LABS: Diff Comment Manual Differential; Polychromasia Present
[2018-12-05 09:00] VITALS: BP 116/56; PULSE 100; RESP 16; TEMP 36.6; O2SAT 98
[2018-12-05] MEDS: Acetaminophen 500 MG TAB PO ×2 (09:13→13:11)
--- NOTE | 2018-12-05 12:24 | W.PM.DS.N ---
Date of service: 12/05/18 Time of Service: 12:24 DS: Diagnosis Discharge Diagnosis (1) Alcohol withdrawal: Status: Acute (2) Pancreatic pseudocyst: Status: Chronic (3) Nausea & vomiting: Status: Acute (4) Healthcare-associated pneumonia: Status: Acute (5) Anxiety: Status: Chronic (6) Chronic pancreatitis: Status: Chronic Discharge Plan Disposition Patient Disposition: HOME Condition: Stable Discharge Details Chief Complaint: ETOHWithdr Reason For Visit: ALTERED MENTAL STATUS, WITHDRAWAL, HYPONATREMIA Admit Date/Time: 11/26/18 16:16 Admit Provider: Michel Peoples Attending Provider: Michel Peoples Primary Care Provider: None,None ED Provider: Earl Guzman Hospital Course Hospital Course: Ms Robin is a 38 year old female with PMHx of ongoing alcohol abuse, chronic pancreatitis with pancreatic pseudocyst, alcohol withdrawal seizures in the past, chronic thrombocytoepnia, admitted to [facility] ICU On 11/26/18 with symptomatic severe hyponatremia with neurological changes and witnessed seizure activity. She was treated with hypertonic saline. There is a suspicion that etiology of this hyponatremia was beer potomania. Her sodium improved from 114 on admission to 135 by hospital day 3. In addition, the patient was found to have aspiration vs hospital acquired pneumonia - for this she completed antibiotics prior to discharge. Her alcohol withdrawal was protracted, but is being most successfully managed on a combination of a librium taper with prn ativan if librium is not enough. She is to complete the librium taper at home. As far as abdominal pain/nausea, these symptoms do appear better on the day of discharge. There was a suspicion for alcoholic hepatitis - however, on discharge, her Maddrey score is 6, and prognosis is good. As far as her chronic pancreatic pseudocyst, this will need to be evaluated and potentially drained at [facility] - appointment is scheduled for 12/12/18 at 8 am (7 am arrival). The patient is being discharged with instructions not to drink if taking librium/ativan, follow up with alcohol rehab services. A total of 45 minutes were spent on care of patient as well as completion of discharge summary on day of discharge. Home Meds and New Rx's Prescriptions: New acetaminophen [Mapap Extra Strength] 500 mg Tablet 500 mg PO Q4H PRN PRNQty: 0 RF: 0 chlordiazepoxide HCl 25 mg Capsule 25 mg PO Q8H Qty: 6 RF: 0 sucralfate 1 gram Tablet 1 g PO AC & HS Qty: 120 RF: 0 pantoprazole 40 mg Tablet,Delayed Release (Dr/Ec) 40 mg PO DAILY@0730 Qty: 30 RF: 0 promethazine 25 mg Tablet 25 mg PO Q6H PRN PRNQty: 30 RF: 0 nicotine 21 mg/24 hr Patch 24 Hour 21 mg Transdermal DAILY PRN PRNQty: 30 RF: 0 sertraline 50 mg Tablet 50 mg PO DAILY Qty: 30 RF: 0 chlordiazepoxide HCl 10 mg capsule See Rx Instructions .ROUTE .COMPLEX Qty: 12 RF: 0 lorazepam [Ativan] 1 mg tablet 1 mg PO .4x daily prn PRN (Reason: anxiety) Qty: 20 RF: 0 Continued diphenhydramine HCl [Benadryl] 25 mg Capsule PO PRNRF: 0 melatonin 3 MG tablet 1 tab PO PRN PRNRF: 0 Discharge Instructions Instructions: Hyponatremia (DC), Altered Mental Status (GEN) Additional Instructions: Finish your librium taper as prescribed. Do not drink alcohol while taking librium or ativan. Return to the hospital with any fever, bleeding, chest pain, or shortness of breath. Follow up with gastroenterology (endoscopic ultrasound) at [facility]: 12/12/18, arrive at 0700, procedure at 0800. Follow up for substance abuse rehab. Stand Alone Forms: Nursing Discharge Form Referrals: Soledad Irizarry [NURSE PRACTITIONER] - 12/21/18 1:30 pm Activity:: Activity as Tolerated Equipment/Supplies:: No Equipment Needed Diet:: As Tolerated Discharge Orders Discharge Orders: Discharge Order (Routine); Ordered 12/05/18 Ordered By: Kassidy Healy Exam Narrative Exam Narrative: General: female, looks significantly better today, A&Ox3, not tremulous HEENT: EOMI, MMM Heart: RRR, no m/r/g, HR normal Lungs: CTAB GI: abdomen is soft, mildly distended, minimally tender Extremities: no obvious edema DS: Data Vitals/I&O Vitals and I&O: Vital Signs Temperature 37.0 C 12/05/18 04:50 Temperature Source Tympanic 12/05/18 04:50 Pulse 100 H 12/05/18 07:01 Pulse Rhythm Regular 12/04/18 23:45 Pulse 95 H 11/29/18 08:00 Respiratory Rate 16 12/05/18 04:50 Respiratory Effort 12/04/18 23:45 Respiratory Depth Normal 12/04/18 23:45 Respiratory Pattern Normal 12/04/18 23:45 Blood Pressure 111/72 12/05/18 04:50 Blood Pressure Mean 83 11/29/18 07:34 Blood Pressure Position Supine 11/29/18 04:15 Pulse Oximetry 99 12/05/18 04:50 Oxygen Delivery Method Room Air 12/05/18 04:50 Oxygen Flow Rate 0 12/05/18 04:50 Pain Level 8 12/05/18 09:13 Comment 12/04/18 19:06 Intake & Output 12/04/18 12/05/18 12/05/18 23:59 11:59 23:59 Intake Total 240 / 1290 790 / 790 Output Total 1999 1900 / 1900 Balance -1760 / -710 -1110 / -1110 Weight 57.3 kg Intake: Oral 240 / 1290 790 / 790 Output: Urine 1999 1900 / 1900 Other: Urine Color Yellow Yellow Urine Appearance Clear Clear Urine Odor None Normal Comment VOID X 3 DURING NO PER PT Stool Size Small Stool Characteristics Soft Formed Voiding Methods Bedside Commode Toilet Completed studies during hospitalization [Text1]: XR R humerus 11/26/18: No acute fracture or dislocation is present. CT head 11/26/18: Normal noncontrast cranial CT. CT abdomen 11/27/18: When compared with the previous study of 12/30/17, again noted is a large cystic mass most likely originating from the head of the pancreas and representing a pseudocyst. There has been no apparent change in the size of this lesion. Today's examination reveals some regions of increased absorption within this mass which may well represent hemorrhage. The examination is otherwise unchanged. CTA chest 11/27/18: No evidence of PE. The possibility of an acute pneumonitis in this patient is raised. CT chest 11/30/18: Persistent large heterogeneous fluid collection in the peripancreatic region. The findings are suspicious for a pseudo cyst. 2. Findings consistent with chronic pancreatitis with pancreatic atrophy 3. Hepatic steatosis. CXR 12/03/18: Negative chest x-ray. Labs on day of discharge: Labs from last 24 hours 12/05/18 12/05/18 06:20 06:20 WBC 8.23 RBC 3.45 L Hgb 11.2 L Hct 34.1 L MCV 98.8 H MCH 32.5 MCHC 32.8 RDW 15.0 H Plt Count 613 H MPV 9.1 Immature Gran % See Differential Neutrophils % 64.0 Band Neutrophils % 2.0 Lymphocytes % 15.0 Atypical Lymphs % 1 Monocytes % 14.0 Eosinophils % 2.0 Basophils % 0.0 Metamyelocytes % 2.0 Absolute Neutrophils 5.43 Absolute Lymphocytes 1.32 Absolute Monocytes 1.15 H Absolute Eosinophils 0.16 Absolute Basophils 0.00 Differential Comment Manual differential RBC Morphology See below Polychromasia Present Sodium 135 L Potassium 4.1 Chloride 101 Carbon Dioxide 27.4 Anion Gap 6.6 BUN 4 L Creatinine 0.69 Estimated GFR/1.73 m2 >= 60.00 Glucose 152 H Calcium 8.6 Magnesium 1.8 PFSH Medical History Pancreatic pseudocyst (Chronic) Chronic pancreatitis (Chronic) Anxiety (Chronic) Withdrawal seizures (Suspected) History of DVT (deep vein thrombosis) (Chronic) Alcohol abuse (Chronic) Acute pancreatitis (Acute) Hemorrhagic pancreatitis (Resolved) DVT (deep venous thrombosis) (Inactive) Pancreatitis (Inactive) Surgical History H/O LEEP (Acute) H/O chest tube placement (Inactive) Social History Smoking/Tobacco Use Status: Current every day Tobacco Type: cigarettes Tobacco: How many years used: 21 Alcohol Intake: current Alcohol Intake frequency: 3 or more drinks per day Alcohol type: beer Drug use: Never Substance use type: marijuana Details: recorded h/o MJ and drug use but patient denies today Do you feel safe at home: Yes Do you feel safe in your relationship?: Yes Additional Social history: Patient is and has 2 children ages 13 and 14. Moved here from [place] approximately 2 years ago, now lives in [place]. She is a [id number] mother. Reports ongoing alcohol use. 30+-pack-year history of smoking.
[2018-12-05 14:09] VITALS: PULSE 103
--- NOTE | 2018-12-05 15:06 | CHAPLAIN ---
When I visited with Zahraa this afternoon she said she was being discharged. Her room was still very dark and the shades were pulled. She thanked me for visiting with her during her stay here. Zahraa said she is looking forward to being home. Her was having a cigarette in the parking lot, and then would be right up, she said.
--- NOTE | 2018-12-05 15:15 | PDOC.CMDIS ---
- If Service Date Differs Date of service: 12/05/18 Time of Service: 15:15 LACE Index Scoring Tool - Questions: Length of Stay (in days): 7 - 13 Acuity (Admit via E.D.?): Yes Comorbidities: Liver or Renal Disease E.D. Visits: 6 - Answers: Total Score: 17 Risk of Readmission: High Risk Care Management Discharge Reason for Hospitalization: acute hyponatremia, alcohol withdrawal seizures, chronic pancreatitis Discharge Plan: Laina will be discharged home with no additional services at this time. She has been provided with information about substance abuse treatment programs in the area. She has an appointment scheduled [place] [facility] [place] Department on 12/12/18 with an arrival time of 0700 and a procedure time of 0800. She will follow up with her new PCP and dischgarge plan of care. She will be transported by her via private vehicle. Patient/Family Education Needs: Dicharge plan, limitations, follow up plan of care, Ask Me Three
--- NOTE | 2018-12-05 15:22 | CMDISCH_ITS ---
- If Service Date Differs Date of service: 12/05/18 Time of Service: 15:15 LACE Index Scoring Tool - Questions: Length of Stay (in days): 7 - 13 Acuity (Admit via E.D.?): Yes Comorbidities: Liver or Renal Disease E.D. Visits: 6 - Answers: Total Score: 17 Risk of Readmission: High Risk Care Management Discharge Reason for Hospitalization: acute hyponatremia, alcohol withdrawal seizures, chronic pancreatitis Discharge Plan: Laina will be discharged home with no additional services at this time. She has been provided with information about substance abuse treatment programs in the area. She has an appointment scheduled at [facility] in the [place] Department on 12/12/18 with an arrival time of 0700 and a procedure time of 0800. She will follow up with her new PCP and dischgarge plan of care. She will be transported by her via private vehicle. Patient/Family Education Needs: Dicharge plan, limitations, follow up plan of care, Ask Me Three
--- NOTE | 2018-12-05 20:00 | PT.INDS ---
Date of service: 12/08/18 PT Notes Inpatient Physical Therapy Discharge Summary Dates: 12/05/2018 Dates of Service: 11/28/2018 through 12/05/2018 This is a clinical summary of care provided on the duration of dates listed above. No charge was made in the completion of this documentation. Referring Doctor: Michel Peoples MD PT Orders: PT CONSULT: Reduce risk for falls. Improve general conditioning Precautions: Fall. Standard. Seizure prone. Patient Profile/Admitting Diagnosis: Patient is a 38-year-old female who presented to the ED on 11/26/2018 with chief complaints of full body tremor, confusion, vomiting, and unsteadiness on feet. Patient was diagnosed with hyponatremia, alcoholic hepatitis, and suspected withdrawal seizures. PMHX: Medical History Pancreatic pseudocyst (Chronic) Chronic pancreatitis (Chronic) Anxiety (Chronic) Withdrawal seizures (Suspected) History of DVT (deep vein thrombosis) (Chronic) Alcohol abuse (Chronic) Acute pancreatitis (Acute) Hemorrhagic pancreatitis (Resolved) DVT (deep venous thrombosis) (Inactive) Pancreatitis (Inactive) Surgical History H/O LEEP (Acute) H/O chest tube placement (Inactive) Social History/Home Situation: Patient lives with and 2 daughters ages 13 and 14 in a mobile home in [place], [place] with a ramp to enter. Patient was independent with all aspects of ADLs without the need for an assistive ambulatory device nor adaptive equipment. 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 She further states that she currently relocated to [place] from [place]. Current Functional Limitations: Need for assistance with all transfer and ambulation tasks using FWW Equipment Owned/DME: Wheelchair Subjective: Per SECOND MATE report, patient has refused skilled PT after 4 attempts at offering services since 12/01/2018. Objective: General Observation: Patient on telemetry. Continuous pulse oximetry on left ring finger. Multiple ecchymoses found on bilateral legs and arms. Mental Status: Alert and oriented x3. Patient needing frequent reassurances due to high anxiety level. Pain: Moderate pain on bilateral gluteal areas and legs ROM: Right Upper Extremity: Shoulder Flexion WFL. Shoulder abduction WFL. Elbow flexion WFL. Wrist flexion WFL. Functional opening and closing of hand WFL. Left Upper Extremity: Shoulder Flexion WFL. Shoulder abduction WFL. Elbow flexion WFL. Wrist flexion WFL. Functional opening and closing of hand WFL. Right Lower Extremity: Hip flexion WFL. Hip abduction WFL. Knee flexion WFL. Ankle dorsiflexion WFL. Ankle plantarflexion WFL. Left Lower Extremity: Hip flexion WFL. Hip abduction WFL. Knee flexion WFL. Ankle dorsiflexion WFL. Ankle plantarflexion WFL. Strength: Right Upper Extremity: Shoulder flexors 4-/5. Shoulder abductors 4-/5. Elbow flexors 4-/5. Elbow extensors 4-/5. [employer]en [employer] strong. Left Upper Extremity: Shoulder flexors 4-/5. Shoulder abductors 4-/5. Elbow flexors 4-/5. Elbow extensors 4-/5. Wooden [employer] Maker strong. Right Lower Extremity: Hip flexors 4-/5. Hip abductors 4-/5. Knee flexors 4-/5. Knee extensors 3+/5. Ankle dorsiflexors 4/5. Ankle plantarflexors 4/5. Left Lower Extremity:Hip flexors 4-/5. Hip abductors 4-/5. Knee flexors 4-/5. Knee extensors 3+/5. Ankle dorsiflexors 4/5. Ankle plantarflexors 4/5. Sensation: Intact test to pain and pressure on bilateral lower extremities Bed Mobility/Transfers: Rolling I Supine to sit I Sit to supine I Sit to stand I Stand to sit I Bed to chair I Chair to bed I Gait: Please see SECOND MATE documentation 12/04/2018. Balance: Static Sitting: Good Dynamic Sitting: Good Static Standing: Good Dynamic Standing: Good 4 Stage Balance Test: Patient was able to assume position 1 for about 5 seconds. Unable to assume positions 2 through 4 indicating continued risk for falls. This Assessment: Patient is a 38-year-old female diagnosed with hyponatremia, alcoholic hepatitis, and suspected withdrawal seizures.Patient presents with clinical signs and symptoms consistent with current/admitting diagnoses that have resulted to mobility limitations, gait instability, generalized weakness, and impairment of motor control as demonstrated by the following impairment level findings: 1. Decreased strength to B LE major muscle groups 2. Impaired sitting/standing balance 3. Impaired activity tolerance 4. High anxiety level and low self-confidence related to chronic alcoholism Impairments are contributing to the following functional limitations: 1. Inability to safely ambulate without assistive device and physical assistance 2. Increased fall risk see PT orientation Goals: Goals X1 week 1. Supine-Sit independent MET 2. Sit-Supine independent MET 3. Sit-Stand independent MET 4. Stand-Sit independent MET 5. Bed-Chair independent MET 6. Chair-Bed independent MET 7. Independent gait on level surface with use of least restrictive device for at least 300 feet without report of pain nor dyspnea NOT MET 8. Independent stair negotiation while holding onto bilateral rails for at least 5 steps without report of pain nor dyspnea N/A, patient has ramp. 9. Independent with home exercise program NOT MET 10. Good static and dynamic standing balance/tolerance NOT MET DISCHARGE RECOMMENDATIONS: Patient will benefit from home health PT services in order to progress mobility level using least restrictive assistive ambulatory device/using no device, assess home safety, identify additional equipment needs, and establish a functional maintenance program that will increase ability of patient to remain at home. TREATMENT CODE/TIME: LA Thank you very much for this referral. Loretta Black PT, DPT, CLT [facility]
[2018-12-05 21:26] LABS: Pancreatic Elastase, F 21 mcg/g
--- NOTE | 2018-12-08 08:15 | INDS_ITS ---
Date of service: 12/08/18 PT Notes Inpatient Physical Therapy Discharge Summary Dates: 12/05/2018 Dates of Service: 11/28/2018 through 12/05/2018 This is a clinical summary of care provided on the duration of dates listed above. No charge was made in the completion of this documentation. Referring Doctor: Michel Peoples MD PT Orders: PT CONSULT: Reduce risk for falls. Improve general conditioning Precautions: Fall. Standard. Seizure prone. Patient Profile/Admitting Diagnosis: Patient is a 38-year-old female who presented to the ED on 11/26/2018 with chief complaints of full body tremor, confusion, vomiting, and unsteadiness on feet. Patient was diagnosed with hyponatremia, alcoholic hepatitis, and suspected withdrawal seizures. PMHX: Medical History Pancreatic pseudocyst (Chronic) Chronic pancreatitis (Chronic) Anxiety (Chronic) Withdrawal seizures (Suspected) History of DVT (deep vein thrombosis) (Chronic) Alcohol abuse (Chronic) Acute pancreatitis (Acute) Hemorrhagic pancreatitis (Resolved) DVT (deep venous thrombosis) (Inactive) Pancreatitis (Inactive) Surgical History H/O LEEP (Acute) H/O chest tube placement (Inactive) Social History/Home Situation: Patient lives with and 2 daughters ages 13 and 14 in a mobile home in [place], [place] with a ramp to enter. Patient was independent with all aspects of ADLs without the need for an assistive ambulatory device nor adaptive equipment. 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 She further states that she currently relocated to [place] from [place]. Current Functional Limitations: Need for assistance with all transfer and ambulation tasks using FWW Equipment Owned/DME: Wheelchair Subjective: Per VEHICLE OPERATOR report, patient has refused skilled PT after 4 attempts at offering services since 12/01/2018. Objective: General Observation: Patient on telemetry. Continuous pulse oximetry on left ring finger. Multiple ecchymoses found on bilateral legs and arms. Mental Status: Alert and oriented x3. Patient needing frequent reassurances due to high anxiety level. Pain: Moderate pain on bilateral gluteal areas and legs ROM: Right Upper Extremity: Shoulder Flexion WFL. Shoulder abduction WFL. Elbow flexion WFL. Wrist flexion WFL. Functional opening and closing of hand WFL. Left Upper Extremity: Shoulder Flexion WFL. Shoulder abduction WFL. Elbow flexion WFL. Wrist flexion WFL. Functional opening and closing of hand WFL. Right Lower Extremity: Hip flexion WFL. Hip abduction WFL. Knee flexion WFL. Ankle dorsiflexion WFL. Ankle plantarflexion WFL. Left Lower Extremity: Hip flexion WFL. Hip abduction WFL. Knee flexion WFL. Ankle dorsiflexion WFL. Ankle plantarflexion WFL. Strength: Right Upper Extremity: Shoulder flexors 4-/5. Shoulder abductors 4-/5. Elbow flexors 4-/5. Elbow extensors 4-/5. [employer] strong. Left Upper Extremity: Shoulder flexors 4-/5. Shoulder abductors 4-/5. Elbow flexors 4-/5. Elbow extensors 4-/5. [employer] strong. Right Lower Extremity: Hip flexors 4-/5. Hip abductors 4-/5. Knee flexors 4-/5. Knee extensors 3+/5. Ankle dorsiflexors 4/5. Ankle plantarflexors 4/5. Left Lower Extremity:Hip flexors 4-/5. Hip abductors 4-/5. Knee flexors 4-/5. Knee extensors 3+/5. Ankle dorsiflexors 4/5. Ankle plantarflexors 4/5. Sensation: Intact test to pain and pressure on bilateral lower extremities Bed Mobility/Transfers: Rolling I Supine to sit I Sit to supine I Sit to stand I Stand to sit I Bed to chair I Chair to bed I Gait: Please see VEHICLE OPERATOR documentation 12/04/2018. Balance: Static Sitting: Good Dynamic Sitting: Good Static Standing: Good Dynamic Standing: Good 4 Stage Balance Test: Patient was able to assume position 1 for about 5 seconds. Unable to assume positions 2 through 4 indicating continued risk for falls. This Assessment: Patient is a 38-year-old female diagnosed with hyponatremia, alcoholic hepatitis, and suspected withdrawal seizures.Patient presents with clinical signs and symptoms consistent with current/admitting diagnoses that have resulted to mobility limitations, gait instability, generalized weakness, and impairment of motor control as demonstrated by the following impairment level findings: 1. Decreased strength to B LE major muscle groups 2. Impaired sitting/standing balance 3. Impaired activity tolerance 4. High anxiety level and low self-confidence related to chronic alcoholism Impairments are contributing to the following functional limitations: 1. Inability to safely ambulate without assistive device and physical assistance 2. Increased fall risk see PT orientation Goals: Goals X1 week 1. Supine-Sit independent MET 2. Sit-Supine independent MET 3. Sit-Stand independent MET 4. Stand-Sit independent MET 5. Bed-Chair independent MET 6. Chair-Bed independent MET 7. Independent gait on level surface with use of least restrictive device for at least 300 feet without report of pain nor dyspnea NOT MET 8. Independent stair negotiation while holding onto bilateral rails for at least 5 steps without report of pain nor dyspnea N/A, patient has ramp. 9. Independent with home exercise program NOT MET 10. Good static and dynamic standing balance/tolerance NOT MET DISCHARGE RECOMMENDATIONS: Patient will benefit from home health PT services in order to progress mobility level using least restrictive assistive ambulatory device/using no device, assess home safety, identify additional equipment needs, and establish a functional maintenance program that will increase ability of patient to remain at home. TREATMENT CODE/TIME: HI Thank you very much for this referral. Loretta Black PT, DPT, CLT [facility]
== END 2018-12-05 14:00 | disposition home or self-care (01) | DRG 896 ==
LOC: ER 16:24 → ICU 17:07 → MS 11-29 08:39
PROVIDERS: Family Medicine; Internal Medicine; Admitting Provider Internal Medicine; Emergency Provider Student in an Organized Health Care Education/Training Program; Visit Provider Internal Medicine
DX: R56.9 Unspecified convulsions (principal); J18.9 Pneumonia, unspecified organism; E87.1 Hypo-osmolality and hyponatremia; K86.3 Pseudocyst of pancreas; F10.232 Alcohol dependence with withdrawal with perceptual disturbance; D69.6 Thrombocytopenia, unspecified; K70.10 Alcoholic hepatitis without ascites; Y95 Nosocomial condition; F41.9 Anxiety disorder, unspecified; R26.2 Difficulty in walking, not elsewhere classified; E87.6 Hypokalemia; R25.1 Tremor, unspecified; F17.210 Nicotine dependence, cigarettes, uncomplicated; R41.82 Altered mental status, unspecified
CPT/HCPCS: 36410; 36415; 71275; 80048; 80053; 80076; 80307; 82533; 83690; 84145; 85027; 85384; 87040; 93005; 96365; 96366; 96367; 96368; 96375; 97110; 97162; 97530; 99223; 99232; 99233; 99239; 99291; 70450; 71045; 73060; 74160; 80320; 80329; 81003; 81015; 82140; 82656; 82710; 83010; 83036; 83516; 83735; 84100; 84295; 84443; 85025; 85379; 85610; 87086; 93010; J0131; J2060; J2405; J3360; J3480; J3490

== ENCOUNTER 2018-12-13 12:40 | Observation (INO) | payer MEDICAID, SELFPAY ==
[2018-12-13] VITALS (35 sets, daily range): BP systolic 114–134; BP diastolic 70–93; PULSE 97–126; RESP 11–29; TEMP 36.9–37.3; O2SAT 97–100
--- NOTE | 2018-12-13 12:42 | DI.CT_ITS ---
SYMPTOMS/DIAGNOSIS: EPIGASTRIC PAIN, RECENT PANCREATIC STENT YESTERDAY ABDOMINAL AND PELVIC CT: CT examination of the abdomen and pelvis was performed with a bolus infusion of 100 cc of Omnipaque 350 and ingestion of dilute barium. Images obtained through the lung bases are unremarkable. The patient has reportedly had a recent pancreatic stent and there is a stent in place, which appears to traverse the duodenum and the pancreatic head where there is an apparent pseudocyst, which has been drained since the previous CT of 11/30/18. No free fluid in the peritoneal cavity, in the pelvis or elsewhere. Edema noted around the pancreatic head. Liver and spleen grossly unremarkable. No biliary dilatation. Vascular structures appear intact. Adrenals and kidneys unremarkable. No evidence of bowel obstruction. IUD noted in place in the uterus. CONCLUSION: Pancreaticoduodenal stent in place as described above. No additional significant findings. Appropriate follow-up studies requested.
[2018-12-13 12:54] LABS: Abs Immature Grans 0.06 k/cumm (0.0-0.09); Absolute Basophil Count 0.02 k/cumm (0.0-0.2); Absolute Eosinophil Count 0.03 k/cumm (0.0-0.7); Absolute Lymphocyte Count 1.25 k/cumm (1.2-3.4); Absolute Monocyte Count 1.03 k/cumm (0.11-0.7); Absolute Neutrophil Count 13.22 k/cumm (1.2-6.7); Basophils % 0.1; Eosinophils % 0.2; HCT 42.5 % (36.0-46.0); HGB 14.1 g/dL (12.0-15.5); Immature Grans % 0.4; Mean Corp. HGB Concentration 33.2 g/dL (32.0-36.0); Mean Corpuscular Hemoglobin 31.6 pg (27.0-33.0); Mean Corpuscular Volume 95.3 fL (80-95); Mean Platelet Volume 9.2 fL (8.0-11.0); Monocytes % 6.6; RBC 4.46 m/cumm (4.00-5.20); RBC Distribution Width 15.1 % (11.7-14.6); White Blood Cell Count 15.61 k/cumm (4.4-10.8)
[2018-12-13] MEDS: Ketorolac 15 MG/ML VIAL IVP (13:00)
[2018-12-13] MEDS: Sucralfate 1 GM TAB PO ×3 (13:00→21:42)
[2018-12-13] MEDS: Normal Saline 1,000 ML 1000 ML IV ×2 (13:01→14:36)
[2018-12-13] MEDS: LORazepam 2 MG/ML VIAL 1 MG IVP (13:01)
[2018-12-13 13:12] LABS: Neutrophils % 84.7; Platelet Count 803 x1000/uL (130-400)
[2018-12-13 13:13] LABS: Anisocytosis 1+; Diff Comment Diff Reviewed; Polychromasia Present
[2018-12-13 13:15] LABS: ALT 15 U/L (12-78); AST 24 U/L (15-37); Albumin 3.2 g/dL (3.4-5.0); Alkaline Phosphatase 236 U/L (46-116); Anion Gap 13.8 mmol/L (3-11); BUN 3 mg/dL (7-18); Bilirubin, Total 0.4 mg/dL (0.2-1.0); CO2 22.2 mmol/L (21.0-32.0); CREATININE 0.54 mg/dL (0.55-1.02); Calcium 9.6 mg/dL (8.5-10.1); Chloride 101 mmol/L (98-107); Glucose 147 mg/dL (70-100); Lipase 31 U/L (73-393); Potassium 4.9 mmol/L (3.5-5.1); Sodium 137 mmol/L (136-145)
[2018-12-13 13:33] LABS: ETHANOL BLOOD 13.1 mg/dL (<3)
--- NOTE | 2018-12-13 13:36 | W.ED.GENAD ---
Discharge Plan Disposition Patient Disposition: [facility] INPATIENT Condition: Stable Discharge Details Chief Complaint: GenMedical Clinical Impression: Acute epigastric pain Primary Care Provider: None,None ED Provider: Jaime Goldberg Home Meds and New Rx's Prescriptions: No Action acetaminophen [Mapap Extra Strength] 500 mg Tablet 500 mg PO Q4H PRN PRNQty: 0 RF: 0 sucralfate 1 gram Tablet 1 g PO AC & HS Qty: 120 RF: 0 pantoprazole 40 mg Tablet,Delayed Release (Dr/Ec) 40 mg PO DAILY@0730 Qty: 30 RF: 0 promethazine 25 mg Tablet 25 mg PO Q6H PRN PRNQty: 30 RF: 0 sertraline 50 mg Tablet 50 mg PO DAILY Qty: 30 RF: 0 Medical Decision Making This is a 38-year-old female with a past medical history of be reported loreta, pancreatic pseudocyst, recent stent placement at [facility] yesterday for pancreatic pseudocyst. Postop note from dermis shows no complications during procedure. She presents today for epigastric pain, minimal low chest epigastric pain, nausea, and anxiety. Symptoms began this morning, she states that it feels like her previous anxiety attacks, but the epigastric pain is new. Exam demonstrates mild tachycardia, and my mild epigastric tenderness. No evidence of significant guarding in the abdomen. Differential includes chronic pain secondary to recent drain placement. Unlikely cardiac with her young age, and no history of cardiac disease or family history of cardiac disease. EKG shows sinus tachycardia but no other abnormalities. Signs and symptoms are inconsistent with ACS. We will treat her anxiety, rehydrate, treat her pain, and reassess. 4:18 PM Laboratory work-up has returned, patient does have mild white count, hemoglobin is stable. Platelets slightly elevated at 800. Renal function stable, electrolytes normal. Troponin normal, lipase normal, alcohol is 13. CT scan per radiology shows mild evidence of edema around the pancreatic drain, no significant elements of free fluid per Dr. Cuevas. EKG unremarkable. After GI cocktail the patient is feeling much better. She shows no signs of an acute surgical abdomen at this time but does have continued mild epigastric tenderness. I did contact [facility] gastroenterology and discussed the case with Dr. Kerr. Dr. Kerr was concerned that during the initial procedure there was mild to moderate amount of blood that came from the pancreatic cyst. They are worried that maybe there is some bleeding still. The patient denies any dark or tarry stools. She denies any hematemesis to me. [facility] does recommend overnight observation with serial H&H's. I did request that the patient then be transferred to [facility], however GI felt that this was unnecessary at this time, and could be kept and managed here for the serial H&H's. We did give 2 mg of Ativan total during the patient's stay, out of concern that there may also be a component of withdrawals. However this is not resolved her mild tachycardia. Patient's blood pressure remains notably stable though. I do feel that this is most likely a multifactorial picture of mild withdrawal, mild pain, mild dehydration. But with a normal hemoglobin less likely significant bleed. I did contact her surgeon Dr. Mcghee, discussed the case with her as well as [facility] plan. She agrees with the plan at this time. Also of note [facility] did recommend CT angiogram if there was a mild drop in hemoglobin. They recommend holding off on additional CT imaging today though. Patient will be admitted to the floor under Dr. Katz. I have extensively reviewed the treatment plan with the patient. I have addressed all patient concerns at this time. I have also discussed the plan with the admitting physician and they agree with the current assessment and plan and have agreed to assume responsibility for the patient. All parties demonstrate verbal understanding and agreement with our assessment and plan at this time. EKG 12: 38 Rate 114, sinus rhythm, QTc 454, QRS 86, of note machine does read atrial flutter, however I believe this is a miss read. No significant ST elevations or depressions. No significant T wave inversions. ABDOMINAL AND PELVIC CT: CT examination of the abdomen and pelvis was performed with a bolus infusion of 100 cc of Omnipaque 350 and ingestion of dilute barium. Images obtained through the lung bases are unremarkable. The patient has reportedly had a recent pancreatic stent and there is a stent in place, which appears to traverse the duodenum and the pancreatic head where there is an apparent pseudocyst, which has been drained since the previous CT of 11/30/18. No free fluid in the peritoneal cavity, in the pelvis or elsewhere. Edema noted around the pancreatic head. Liver and spleen grossly unremarkable. No biliary dilatation. Vascular structures appear intact. Adrenals and kidneys unremarkable. No evidence of bowel obstruction. IUD noted in place in the uterus. CONCLUSION: Pancreaticoduodenal stent in place as described above. No additional significant findings. Appropriate follow-up studies requested. [id number]: Total DLP = 0.00 mGy-cm Ordered By: Jaime Goldberg DO HPI General Date/Time Provider Initiated Documentation: 12/13/18 12:42. HPI Narrative: This is a 38-year-old female with a past medical history of chronic alcohol use, beer put to loreta, chronic pancreatic pseudocyst, who just received a stent at [facility] for her cyst yesterday. She did drink yesterday and also today. She presents today via EMS complaining chest pain. Patient states that this morning she developed some nausea, mild epigastric pain, and mild lower chest pain in the epigastric region. She denies any pleuritic chest pain, cough or shortness of breath. She does have tingling in her fingers. She states that she has a history of anxiety attacks and this feels nearly identical to those in the past. She denies any significant change in pain since the initial procedure. She denies any history of cardiac disease, or other component. She denies any fever or chills. She has no other complaints at this time. No other significant modifying factors. Related Data Home Medications Medication Instructions Recorded Confirmed acetaminophen [Mapap Extra 500 mg PO Q4H PRN PRN #0 tab 12/05/18 12/13/18 Strength] pantoprazole 40 mg PO DAILY@0730 #30 tab 12/05/18 12/13/18 promethazine 25 mg PO Q6H PRN PRN #30 tab 12/05/18 12/13/18 sertraline 50 mg PO DAILY #30 tab 12/05/18 12/13/18 sucralfate 1 g PO AC & HS #120 tab 12/05/18 12/13/18 Previous Rx's Medication Instructions Recorded acetaminophen [Mapap Extra 500 mg PO Q4H PRN PRN #0 tab 12/05/18 Strength] pantoprazole 40 mg PO DAILY@0730 #30 tab 12/05/18 promethazine 25 mg PO Q6H PRN PRN #30 tab 12/05/18 sertraline 50 mg PO DAILY #30 tab 12/05/18 sucralfate 1 g PO AC & HS #120 tab 12/05/18 Allergies Allergy/AdvReac Type Severity Reaction Status Date / Time amoxicillin Allergy Unverified 12/13/18 12:47 codeine Allergy Unverified 12/13/18 12:47 General Stated Complaint: GenMedical JAMEEL: 3 Review of Systems Review of Systems All systems reviewed & are unremarkable except as noted in HPI and below PFSH Medical History Pancreatic pseudocyst (Chronic) Chronic pancreatitis (Chronic) Anxiety (Chronic) Withdrawal seizures (Suspected) History of DVT (deep vein thrombosis) (Chronic) Alcohol abuse (Chronic) Acute pancreatitis (Acute) Hemorrhagic pancreatitis (Resolved) DVT (deep venous thrombosis) (Inactive) Pancreatitis (Inactive) Surgical History H/O LEEP (Acute) H/O chest tube placement (Inactive) Social History Smoking/Tobacco Use Status: Current every day Tobacco Type: cigarettes Tobacco: How many years used: 21 Alcohol Intake: current Alcohol Intake frequency: 3 or more drinks per day Alcohol type: beer Drug use: Occasionally Substance use type: marijuana Details: recorded h/o MJ and drug use but patient denies today Do you feel safe at home: Yes Do you feel safe in your relationship?: Yes Additional Social history: Patient is and has 2 children ages 13 and 14. Moved here from [place] approximately 2 years ago, now lives in [place]. 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 Reports ongoing alcohol use. 30+-pack-year history of smoking. Exam Narrative Exam Narrative: 1.Const: Well-nourished, Well-developed, appearing stated age 2.Eyes: PERRL, no conjunctival injection, and symmetrical lids. 3.ENT: Atraumatic external nose and ears. Moist MM. Neck: Symmetric, trachea midline, No thyromegaly. 4.CVS: +S1/S2, No murmurs or gallops. Peripheral pulses 2+ and equal in all extremities. Brisk capillary refill in all extremities. 5.RESP: Unlabored respiratory effort. Clear to auscultation bilaterally. No wheezes rales or rhonchi 6.GI: Soft, Nondistended, No hepatosplenomegaly. No guarding or rebound. No evidence of right lower quadrant or left lower quadrant pain. Mild epigastric pain on palpation. No flank or CVA tenderness. 7.MSK: Normocephalic/Atraumatic, Extremities w/o deformity or ttp No cyanosis or clubbing, Normal movement of all extremities 8.Skin: Warm, Dry. No rashes or lesions. 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 Sensation grossly intact, no focal neurologic deficits. 10.Psych: (AAO) x3. Appropriate mood and affect Course Vital Signs Respiratory Rate 17 12/13/18 12:28 Temperature 36.9 C 12/13/18 12:37 Temperature Source Skin 12/13/18 12:37 Pulse 106 H 12/13/18 13:16 Pulse 97 H 12/13/18 13:20 Respiratory Rate 16 12/13/18 13:20 Respiratory Effort Non-Labored 12/13/18 13:17 Respiratory Depth Normal 12/13/18 13:17 Respiratory Pattern Normal 12/13/18 13:17 Blood Pressure 121/93 H 12/13/18 13:16 Blood Pressure Mean 100 12/13/18 13:16 Blood Pressure Position Sitting 12/13/18 12:37 Pulse Oximetry 100 12/13/18 13:20 Oxygen Delivery Method Room Air 12/13/18 12:37 Oxygen Flow Rate 0 12/13/18 12:37 Pain Level 10 12/13/18 13:01 Lab/Test Results Lab/Test Results: Laboratory Tests Range/Units 12/13/18 12/13/18 12/13/18 12:45 12:45 12:45 WBC (4.4-10.8) k/cumm 15.61 H RBC (4.00-5.20) m/cumm 4.46 Hgb (12.0-15.5) g/dL 14.1 Hct (36.0-46.0) % 42.5 MCV (80-95) fL 95.3 H MCH (27.0-33.0) pg 31.6 MCHC (32.0-36.0) g/dL 33.2 RDW (11.7-14.6) % 15.1 H Plt Count (130-400) x1000/uL 803 H* MPV (8.0-11.0) fL 9.2 Immature Gran % 0.4 Neutrophils % 84.7 Lymphocytes % 8.0 Monocytes % 6.6 Eosinophils % 0.2 Basophils % 0.1 Absolute Neutrophils (1.2-6.7) k/cumm 13.22 H Absolute Lymphocytes (1.2-3.4) k/cumm 1.25 Absolute Monocytes (0.11-0.7) k/cumm 1.03 H Absolute Eosinophils (0.0-0.7) k/cumm 0.03 Absolute Basophils (0.0-0.2) k/cumm 0.02 Differential Comment Diff reviewed RBC Morphology See below Polychromasia Present Anisocytosis 1+ Sodium (136-145) mmol/L 137 Potassium (3.5-5.1) mmol/L 4.9 Chloride (98-107) mmol/L 101 Carbon Dioxide (21.0-32.0) mmol/L 22.2 Anion Gap (3-11) mmol/L 13.8 H BUN (7-18) mg/dL 3 L Creatinine (0.55-1.02) mg/dL 0.54 L Estimated GFR/1.73 m2 (mL/min/1.73m2) >= 60.00 Glucose (70-100) mg/dL 147 H Calcium (8.5-10.1) mg/dL 9.6 Total Bilirubin (0.2-1.0) mg/dL 0.4 AST (15-37) U/L 24 ALT (12-78) U/L 15 Alkaline Phosphatase (46-116) U/L 236 H Total Protein (6.4-8.2) g/dL 8.0 Albumin (3.4-5.0) g/dL 3.2 L Lipase (73-393) U/L 31 L Ethyl Alcohol (<3) mg/dL 13.1
--- NOTE | 2018-12-13 13:44 | ED.GENADUL_ITS ---
Discharge Plan Disposition Patient Disposition: [facility] INPATIENT Condition: Stable Discharge Details Chief Complaint: GenMedical Clinical Impression: Acute epigastric pain Primary Care Provider: None,None ED Provider: Jaime Goldberg Home Meds and New Rx's Prescriptions: No Action acetaminophen [Mapap Extra Strength] 500 mg Tablet 500 mg PO Q4H PRN PRNQty: 0 RF: 0 sucralfate 1 gram Tablet 1 g PO AC & HS Qty: 120 RF: 0 pantoprazole 40 mg Tablet,Delayed Release (Dr/Ec) 40 mg PO DAILY@0730 Qty: 30 RF: 0 promethazine 25 mg Tablet 25 mg PO Q6H PRN PRNQty: 30 RF: 0 sertraline 50 mg Tablet 50 mg PO DAILY Qty: 30 RF: 0 Medical Decision Making This is a 38-year-old female with a past medical history of be reported loreta, pancreatic pseudocyst, recent stent placement at [facility] yesterday for pancreatic pseudocyst. Postop note from dermis shows no complications during procedure. She presents today for epigastric pain, minimal low chest epigastric pain, nausea, and anxiety. Symptoms began this morning, she states that it feels like her previous anxiety attacks, but the epigastric pain is new. Exam demonstrates mild tachycardia, and my mild epigastric tenderness. No evidence of significant guarding in the abdomen. Differential includes chronic pain secondary to recent drain placement. Unlikely cardiac with her young age, and no history of cardiac disease or family history of car diac disease. EKG shows sinus tachycardia but no other abnormalities. Signs and symptoms are inconsistent with ACS. We will treat her anxiety, rehydrate, treat her pain, and reassess. 4:18 PM Laboratory work-up has returned, patient does have mild white count, hemoglobin is stable. Platelets slightly elevated at 800. Renal function stable, electrolytes normal. Troponin normal, lipase normal, alcohol is 13. CT scan per radiology shows mild evidence of edema around the pancreatic drain, no significant elements of free fluid per Dr. Cuevas. EKG unremarkable. After GI cocktail the patient is feeling much better. She shows no signs of an acute surgical abdomen at this time but does have continued mild epigastric tenderness. I did contact [facility] gastroenterology and discussed the case with Dr. Kerr. Dr. Kerr was concerned that during the initial procedure there was mild to moderate amount of blood that came from the pancreatic cyst. They are worried that maybe there is some bleeding still. The patient denies any dark or tarry stools. She denies any hematemesis to me. [facility] does recommend overnight observation with serial H&H's. I did request that the patient then be transferred to [facility], however GI felt that this was unnecessary at this time, and could be kept and managed here for the serial H&H's. We did give 2 mg of Ativan total during the patient's stay, out of concern that there may also be a component of withdrawals. However this is not resolved her mild tachycardia. Patient's blood pressure remains notably stable though. I do feel that this is most likely a multifactorial picture of mild withdrawal, mild pain, mild dehydration. But with a normal hemoglobin less likely significant bleed. I did contact her surgeon Dr. Mcghee, discussed the case with her as well as [facility] plan. She agrees with the plan at this time. Also of note [facility] did recommend CT angiogram if there was a mild drop in hemoglobin. They recommend holding off on additional CT imaging today though. Patient will be admitted to the floor under Dr. Katz. I have extensively reviewed the treatment plan with the patient. I have addressed all patient concerns at this time. I have also discussed the plan with the admitting physician and they agree with the current assessment and plan and have agreed to assume responsibility for the patient. All parties demonstrate verbal understanding and agreement with our assessment and plan at this time. EKG 12: 38 Rate 114, sinus rhythm, QTc 454, QRS 86, of note machine does read atrial flutter, however I believe this is a miss read. No significant ST elevations or depressions. No significant T wave inversions. ABDOMINAL AND PELVIC CT: CT examination of the abdomen and pelvis was performed with a bolus infusion of 100 cc of Omnipaque 350 and ingestion of dilute barium. Images obtained through the lung bases are unremarkable. The patient has reportedly had a recent pancreatic stent and there is a stent in place, which appears to traverse the duodenum and the pancreatic head where there is an apparent pseudocyst, which has been drained since the previous CT of 11/30/18. No free fluid in the inge toneal cavity, in the pelvis or elsewhere. Edema noted around the pancreatic head. Liver and spleen grossly unremarkable. No biliary dilatation. Vascular structures appear intact. Adrenals and kidneys unremarkable. No evidence of bowel obstruction. IUD noted in place in the uterus. CONCLUSION: Pancreaticoduodenal stent in place as described above. No additional significant findings. Appropriate follow-up studies requested. [id number]: Total DLP = 0.00 mGy-cm Ordered By: Jaime Goldberg DO [facility] General Date/Time Provider Initiated Documentation: 12/13/18 12:42 . HPI Narrative: This is a 38-year-old female with a past medical history of chronic alcohol use, beer put to loreta, chronic pancreatic pseudocyst, who just received a stent at [facility] for her cyst yesterday. She did drink yesterday and also today. She presents today via EMS complaining chest pain. Patient states that this morning she developed some nausea, mild epigastric pain, and mild lower chest pain in the epigastric region. She denies any pleuritic chest pain, cough or shortness of breath. She does have tingling in her fingers. She states that she has a history of anxiety attacks and this feels nearly identical to those in the past. She denies any significant change in pain since the initial procedure. She denies any history of cardiac disease, or other component. She denies any fever or chills. She has no other complaints at this time. No other significant modifying factors. Related Data Home Medications Medication Instructions Recorded Confirmed acetaminophen [Mapap Extra 500 mg PO Q4H PRN PRN #0 tab 12/05/18 12/13/18 Strength] pantoprazole 40 mg PO DAILY@0730 #30 tab 12/05/18 12/13/18 promethazine 25 mg PO Q6H PRN PRN #30 tab 12/05/18 12/13/18 sertraline 50 mg PO DAILY #30 tab 12/05/18 12/13/18 sucralfate 1 g PO AC & HS #120 tab 12/05/18 12/13/18 Previous Rx's Medication Instructions Recorded acetaminophen [Mapap Extra 500 mg PO Q4H PRN PRN #0 tab 12/05/18 Strength] pantoprazole 40 mg PO DAILY@0730 #30 tab 12/05/18 promethazine 25 mg PO Q6H PRN PRN #30 tab 12/05/18 sertraline 50 mg PO DAILY #30 tab 12/05/18 sucralfate 1 g PO AC & HS #120 tab 12/05/18 Allergies Allergy/AdvReac Type Severity Reaction Status Date / Time amoxicillin Allergy Unverified 12/13/18 12:47 codeine Allergy Unverified 12/13/18 12:47 General Stated Complaint: GenMedical JAMEEL: 3 Review of Systems Review of Systems All systems reviewed & are unremarkable except as noted in HPI and below PFSH Medical History Pancreatic pseudocyst (Chronic) Chronic pancreatitis (Chronic) Anxiety (Chronic) Withdrawal seizures (Suspected) History of DVT (deep vein thrombosis) (Chronic) Alcohol abuse (Chronic) Acute pancreatitis (Acute) Hemorrhagic pancreatitis (Resolved) DVT (deep venous thrombosis) (Inactive) Pancreatitis (Inactive) Surgical History H/O LEEP (Acute) H/O chest tube placement (Inactive) Social History Smoking/Tobacco Use Status: Current every day Tobacco Type: cigarettes Tobacco: How many years used: 21 Alcohol Intake: current Alcohol Intake frequency: 3 or more drinks per day Alcohol type: beer Drug use: Occasionally Substance use type: marijuana Details: recorded h/o MJ and drug use but patient denies today Do you feel safe at home: Yes Do you feel safe in your relationship?: Yes Additional Social history: Patient is and has 2 children ages 13 and 14. Moved here from [place] approximately 2 years ago, now lives in [place]. She is a [id number] mother. Reports ongoing alcohol use. 30+-pack-year history of smoking. Exam Narrative Exam Narrative: 1.Const: Well-nourished, Well-developed, appearing stated age 2.Eyes: PERRL, no conjunctival injection, and symmetrical lids. 3.ENT: Atraumatic external nose and ears. Moist MM. Neck: Symmetric, trachea midline, No thyromegaly. 4.CVS: +S1/S2, No murmurs or gallops. Peripheral pulses 2+ and equal in all extremities. Brisk capillary refill in all extremities. 5.RESP: Unlabored respiratory effort. Clear to auscultation bilaterally. No wheezes rales or rhonchi 6.GI: Soft, Nondistended, No hepatosplenomegaly. No guarding or rebound. No evidence of right lower quadrant or left lower quadrant pain. Mild epigastric pain on palpation. No flank or CVA tenderness. 7.MSK: Normocephalic/Atraumatic, Extremities w/o deformity or ttp No cyanosis or clubbing, Normal movement of all extremities 8.Skin: Warm, Dry. No rashes or lesions. 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 Sensation grossly intact, no focal neurol ogic deficits. 10.Psych: (AAO) x3. Appropriate mood and affect Course Vital Signs Respiratory Rate 17 12/13/18 12:28 Temperature 36.9 C 12/13/18 12:37 Temperature Source Skin 12/13/18 12:37 Pulse 106 H 12/13/18 13:16 Pulse 97 H 12/13/18 13:20 Respiratory Rate 16 12/13/18 13:20 Respiratory Effort Non-Labored 12/13/18 13:17 Respiratory Depth Normal 12/13/18 13:17 Respiratory Pattern Normal 12/13/18 13:17 Blood Pressure 121/93 H 12/13/18 13:16 Blood Pressure Mean 100 12/13/18 13:16 Blood Pressure Position Sitting 12/13/18 12:37 Pulse Oximetry 100 12/13/18 13:20 Oxygen Delivery Method Room Air 12/13/18 12:37 Oxygen Flow Rate 0 12/13/18 12:37 Pain Level 10 12/13/18 13:01 Lab/Test Results Lab/Test Results: Laboratory Tests Range/Units 12/13/18 12/13/18 12/13/18 12:45 12:45 12:45 WBC (4.4-10.8) k/cumm 15.61 H RBC (4.00-5.20) m/cumm 4.46 Hgb (12.0-15.5) g/dL 14.1 Hct (36.0-46.0) % 42.5 MCV (80-95) fL 95.3 H MCH (27.0-33.0) pg 31.6 MCHC (32.0-36.0) g/dL 33.2 RDW (11.7-14.6) % 15.1 H Plt Count (130-400) x1000/uL 803 H* MPV (8.0-11.0) fL 9.2 Immature Gran % 0.4 Neutrophils % 84.7 Lymphocytes % 8.0 Monocytes % 6.6 Eosinophils % 0.2 Basophils % 0.1 Absolute Neutrophils (1.2-6.7) k/cumm 13.22 H Absolute Lymphocytes (1.2-3.4) k/cumm 1.25 Absolute Monocytes (0.11-0.7) k/cumm 1.03 H Absolute Eosinophils (0.0-0.7) k/cumm 0.03 Absolute Basophils (0.0-0.2) k/cumm 0.02 Differential Comment Diff reviewed RBC Morphology See below Polychromasia Present Anisocytosis 1+ Sodium (136-145) mmol/L 137 Potassium (3.5-5.1) mmol/L 4.9 Chloride (98-107) mmol/L 101 Carbon Dioxide (21.0-32.0) mmol/L 22.2 Anion Gap (3-11) mmol/L 13.8 H BUN (7-18) mg/dL 3 L Creatinine (0.55-1.02) mg/dL 0.54 L Estimated GFR/1.73 m2 (mL/min/1.73m2) >= 60.00 Glucose (70-100) mg/dL 147 H Calcium (8.5-10.1) mg/dL 9.6 Total Bilirubin (0.2-1.0) mg/dL 0.4 AST (15-37) U/L 24 ALT (12-78) U/L 15 Alkaline Phosphatase (46-116) U/L 236 H Total Protein (6.4-8.2) g/dL 8.0 Albumin (3.4-5.0) g/dL 3.2 L Lipase (73-393) U/L 31 L Ethyl Alcohol (<3) mg/dL 13.1
[2018-12-13] MEDS: Omnipaque 350 MG/ML 100 ML BTL IJ (14:41)
[2018-12-13] MEDS: LORazepam 2 MG/ML VIAL (15:07)
[2018-12-13 15:54] LABS: Troponin I < 0.05 ng/mL (0.00-0.06)
[2018-12-13] MEDS: Normal Saline Flush 10 ML SYR IVP (16:12)
[2018-12-13] MEDS: Ondansetron 4 MG/2 ML VIAL IVP (16:14)
[2018-12-13] MEDS: Lactated Ringers 1,000 ML 125 ML IV (17:27)
[2018-12-13] MEDS: Nicotine 21 MG/24 HR PATCH TD (18:55)
[2018-12-13] MEDS: Ketorolac 30 MG/ML VIAL IVP (21:55)
[2018-12-13] MEDS: LORazepam 1 MG TAB PO/SL (21:55)
[2018-12-13 22:02] LABS: HGB 11.4 g/dL (12.0-15.5)
[2018-12-14] VITALS (11 sets, daily range): BP systolic 106–130; BP diastolic 69–78; PULSE 89–122; RESP 18–112; TEMP 36–38.1; O2SAT 96–100
[2018-12-14] MEDS: LORazepam 1 MG TAB PO/SL ×3 (01:15→20:10)
[2018-12-14] MEDS: Lactated Ringers 1,000 ML 125 ML IV ×3 (01:16→16:19)
[2018-12-14] MEDS: Promethazine 25 MG TAB PO (01:19)
[2018-12-14 07:18] LABS: Abs Immature Grans 0.07 k/cumm (0.0-0.09); Absolute Eosinophil Count 0.07 k/cumm (0.0-0.7); Absolute Lymphocyte Count 1.33 k/cumm (1.2-3.4); Absolute Neutrophil Count 11.27 k/cumm (1.2-6.7); Basophils % 0.1; Eosinophils % 0.5; HCT 35.1 % (36.0-46.0); HGB 11.4 g/dL (12.0-15.5); Immature Grans % 0.5; Lymphocytes % 9.2; Mean Corp. HGB Concentration 32.5 g/dL (32.0-36.0); Mean Corpuscular Hemoglobin 31.6 pg (27.0-33.0); Mean Corpuscular Volume 97.2 fL (80-95); Mean Platelet Volume 9.8 fL (8.0-11.0); Monocytes % 11.9; Neutrophils % 77.8; Platelet Count 576 x1000/uL (130-400); RBC 3.61 m/cumm (4.00-5.20); RBC Distribution Width 14.9 % (11.7-14.6); White Blood Cell Count 14.49 k/cumm (4.4-10.8)
[2018-12-14 07:48] LABS: Absolute Basophil Count 0.01 k/cumm (0.0-0.2); Absolute Monocyte Count 1.72 k/cumm (0.11-0.7)
[2018-12-14] MEDS: Sucralfate 1 GM TAB PO ×4 (07:48→22:14)
[2018-12-14] MEDS: Nicotine 21 MG/24 HR PATCH TD (07:48)
[2018-12-14] MEDS: Pantoprazole 40 MG TABCR PO (07:48)
[2018-12-14] MEDS: Sertraline 50 MG TAB PO (07:49)
[2018-12-14] MEDS: Ondansetron 4 MG/2 ML VIAL IVP ×2 (08:10→16:32)
[2018-12-14 08:21] LABS: Diff Comment Diff Reviewed
--- NOTE | 2018-12-14 10:09 | PGE_ITS ---
Date of Service Date of service: 12/14/18 Time of Service: 10:05 Assessment and Plan (1) Epigastric pain: Current visit: Yes Status: Acute Currently pain is being controlled. On CIWA checks Tolerating normal diet. Denies any nausea or vomiting. 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 Denies any nausea or vomiting. Exam Const General: cooperative, healthy appearing and comfortable Orientation: alert and oriented x3 Resp Effort & Inspection: normal respiratory effort, no audible wheezes and no cough Auscultation: clear to auscultation bilaterally Cardio Rate: regular rate Rhythm: regular rhythm Heart Sounds: S1 normal, S2 normal and no murmurs GI Inspection: normal to inspection and non-distended Palpation: soft, no guarding and tender in the epigastrum Auscultation: normal bowel sounds Objective Objective Clinical Data: Abnormal lab results 12/13/18 12/13/18 12/13/18 Range/Units 12:45 12:45 20:12 WBC 15.61 H (4.4-10.8) k/cumm RBC (4.00-5.20) m/cumm Hgb 11.4 L D (12.0-15.5) g/dL Hct (36.0-46.0) % MCV 95.3 H (80-95) fL RDW 15.1 H (11.7-14.6) % Plt Count 803 H* (130-400) x1000/uL Absolute Neutrophils 13.22 H (1.2-6.7) k/cumm Absolute Monocytes 1.03 H (0.11-0.7) k/cumm Anion Gap 13.8 H (3-11) mmol/L BUN 3 L (7-18) mg/dL Creatinine 0.54 L (0.55-1.02) mg/dL Glucose 147 H (70-100) mg/dL Alkaline Phosphatase 236 H (46-116) U/L Albumin 3.2 L (3.4-5.0) g/dL Lipase 31 L (73-393) U/L 12/14/18 Range/Units 06:20 WBC 14.49 H (4.4-10.8) k/cumm RBC 3.61 L (4.00-5.20) m/cumm Hgb 11.4 L (12.0-15.5) g/dL Hct 35.1 L (36.0-46.0) % MCV 97.2 H (80-95) fL RDW 14.9 H (11.7-14.6) % Plt Count 576 H D (130-400) x1000/uL Absolute Neutrophils 11.27 H (1.2-6.7) k/cumm Absolute Monocytes 1.72 H (0.11-0.7) k/cumm Anion Gap (3-11) mmol/L BUN (7-18) mg/dL Creatinine (0.55-1.02) mg/dL Glucose (70-100) mg/dL Alkaline Phosphatase (46-116) U/L Albumin (3.4-5.0) g/dL Lipase (73-393) U/L Vital Signs Temperature 37.7 C H 12/14/18 09:10 Temperature Source Tympanic 12/14/18 09:10 Pulse 122 H 12/14/18 09:10 Pulse Rhythm Regular 12/13/18 20:45 Pulse 114 H 12/13/18 15:50 Respiratory Rate 20 12/14/18 09:10 Respiratory Effort Non-Labored 12/13/18 20:45 Respiratory Depth Normal 12/13/18 20:45 Respiratory Pattern Normal 12/13/18 20:45 Blood Pressure 121/78 12/14/18 09:10 Blood Pressure Mean 82 12/13/18 14:15 Blood Pressure Position Sitting 12/13/18 12:37 Pulse Oximetry 100 12/14/18 09:10 Oxygen Delivery Method Room Air 12/14/18 09:10 Oxygen Flow Rate 0 12/14/18 09:10 Pain Level 7 12/14/18 08:10 Comment 12/14/18 05:20 Intake & Output 12/13/18 12/14/18 12/14/18 18:59 06:59 18:59 Intake Total 1450 / 3437.083 1986.083 / 3437.083 1344.583 / 1344.583 Output Total 150 / 3250 3100 / 3250 1200 / 1200 Balance 1300 / 187.083 -1112.917 / 187.083 144.583 / 144.583 Weight 55.9 kg Intake: IV 1000 / 2987.083 1986.083 / 2987.083 864.583 / 864.583 Oral 450 / 450 480 / 480 Output: Urine 150 / 3250 3100 / 3250 1200 / 1200 Other: Urine Color Light Estfeany Yellow Yellow Urine Appearance Clear Clear Clear Urine Odor Normal Stool Size Large Moderate Stool Characteristics Soft Liquid Formed Brown Voiding Methods Toilet Toilet Laboratory Results WBC 14.49 k/cumm (4.4-10.8) H 12/14/18 06:20 RBC 3.61 m/cumm (4.00-5.20) L 12/14/18 06:20 Hgb 11.4 g/dL (12.0-15.5) L 12/14/18 06:20 Hct 35.1 % (36.0-46.0) L 12/14/18 06:20 MCV 97.2 fL (80-95) H 12/14/18 06:20 MCH 31.6 pg (27.0-33.0) 12/14/18 06:20 MCHC 32.5 g/dL (32.0-36.0) 12/14/18 06:20 RDW 14.9 % (11.7-14.6) H 12/14/18 06:20 Plt Count 576 x1000/uL (130-400) H D 12/14/18 06:20 MPV 9.8 fL (8.0-11.0) 12/14/18 06:20 Immature Gran % 0.5 12/14/18 06:20 Neutrophils % 77.8 12/14/18 06:20 Lymphocytes % 9.2 12/14/18 06:20 Monocytes % 11.9 12/14/18 06:20 Eosinophils % 0.5 12/14/18 06:20 Basophils % 0.1 12/14/18 06:20 Absolute Neutrophils 11.27 k/cumm (1.2-6.7) H 12/14/18 06:20 Absolute Lymphocytes 1.33 k/cumm (1.2-3.4) 12/14/18 06:20 Absolute Monocytes 1.72 k/cumm (0.11-0.7) H 12/14/18 06:20 Absolute Eosinophils 0.07 k/cumm (0.0-0.7) 12/14/18 06:20 Absolute Basophils 0.01 k/cumm (0.0-0.2) 12/14/18 06:20 Differential Comment Diff reviewed 12/14/18 06:20 RBC Morphology See below 12/13/18 12:45 Polychromasia Present 12/13/18 12:45 Anisocytosis 1+ 12/13/18 12:45 Sodium 137 mmol/L (136-145) 12/13/18 12:45 Potassium 4.9 mmol/L (3.5-5.1) 12/13/18 12:45 Chloride 101 mmol/L (98-107) 12/13/18 12:45 Carbon Dioxide 22.2 mmol/L (21.0-32.0) 12/13/18 12:45 Anion Gap 13.8 mmol/L (3-11) H 12/13/18 12:45 BUN 3 mg/dL (7-18) L 12/13/18 12:45 Creatinine 0.54 mg/dL (0.55-1.02) L 12/13/18 12:45 Estimated GFR/1.73 m2 >= 60.00 (mL/min/1.73m2) 12/13/18 12:45 Glucose 147 mg/dL (70-100) H 12/13/18 12:45 Calcium 9.6 mg/dL (8.5-10.1) 12/13/18 12:45 Total Bilirubin 0.4 mg/dL (0.2-1.0) 12/13/18 12:45 AST 24 U/L (15-37) 12/13/18 12:45 ALT 15 U/L (12-78) 12/13/18 12:45 Alkaline Phosphatase 236 U/L (46-116) H 12/13/18 12:45 Troponin I < 0.05 ng/mL (0.00-0.06) 12/13/18 15:30 Total Protein 8.0 g/dL (6.4-8.2) 12/13/18 12:45 Albumin 3.2 g/dL (3.4-5.0) L 12/13/18 12:45 Lipase 31 U/L (73-393) L 12/13/18 12:45 Ethyl Alcohol 13.1 mg/dL (<3) 12/13/18 12:45
--- NOTE | 2018-12-14 10:46 | PDOC.CMIN ---
- If Service Date Differs Date of service: 12/14/18 Time of Service: 10:46 Care Management Initial Assess REASON FOR HOSPITALIZATION:: epigastric pain PAST MEDICAL HISTORY/PAST SURGICAL HISTORY:: Medical History . Pancreatic pseudocyst (Chronic). Chronic pancreatitis (Chronic). Anxiety (Chronic). Withdrawal seizures (Suspected). History of DVT (deep vein thrombosis) (Chronic). Alcohol abuse (Chronic). Acute pancreatitis (Acute). Hemorrhagic pancreatitis (Resolved). DVT (deep venous thrombosis) (Inactive). Pancreatitis (Inactive). Surgical History. H/O LEEP (Acute). H/O chest tube placement (Inactive) PREVIOUS FUNCTIONAL STATUS/SOCIAL/FAMILY SUPPORTS:: Laina lives with her and 2 daughters ages 13 and 14 in a mobile home in [place]. She is not currently employed. Laina states that she has only been in the area for a year and a half, having relocated from [place]. She is independent with ADLs but states she has had some difficulties with ambulation due to heavy drinking. CURRENT FUNCTIONAL STATUS:: Laina was sitting up in bed when CM came to visit. She stated that she is feeling better than she was yesterday but still has pain. She acknowledged that she has been drinking 2-3 beers a day for the past few days because she ran out of Librium and Ativan. She states that the nurse at [facility] told her a couple of beers a day was OK so she would not go into DT's. She has an appointment with a new PCP in early December and she says the plan is to give her a prescription for enough Librium and Valium to last until she sees her new PCP. Has patient been provided with information about the portal?: No Did the patient sign up for the portal?: No CODE STATUS:: Full Code INSURANCE COVERAGE / FINANCIAL ISSUES:: Medicaid [place] CURRENT HOME/COMMUNITY SERVICES/EQUIPMENT:: none currently PRIMARY CARE PHYSICIAN:: none POTENTIAL DISCHARGE NEEDS:: follow up with surgeon and establish with PCP. Follow up with discharge plan of care PATIENT/FAMILY EDUCATION NEEDS:: Discharge plan, limitations,follow up plan of care, Ask Me Three. ANTICIPATED BARRIERS TO DISCHARGE:: none identified TRANSPORTATION:: via private vehicle with when ready PLAN:: Laina is receiving pain medicine and undergoing testing to determine the cause of her epigastric pain.She will be discharged home with no additional services when ready. CM will continue to provide support to patient, family and discharge plan of care.
--- NOTE | 2018-12-14 10:52 | INITIAL_ITS ---
- If Service Date Differs Date of service: 12/14/18 Time of Service: 10:46 Care Management Initial Assess REASON FOR HOSPITALIZATION:: epigastric pain PAST MEDICAL HISTORY/PAST SURGICAL HISTORY:: Medical History . Pancreatic pseudocyst (Chronic). Chronic pancreatitis (Chronic). Anxiety (Chronic). Withdrawal seizures (Suspected). History of DVT (deep vein thrombosis) (Chronic). Alcohol abuse (Chronic). Acute pancreatitis (Acute). Hemorrhagic pancreatitis (Resolved). DVT (deep venous thrombosis) (Inactive). Pancreatitis (Inactive). Surgical History. H/O LEEP (Acute). H/O chest tube placement (Inactive) PREVIOUS FUNCTIONAL STATUS/SOCIAL/FAMILY SUPPORTS:: Laina lives with her and 2 daughters ages 13 and 14 in a mobile home in [place]. She is not currently employed. Laina states that she has only been in the area for a year and a half, having relocated from [place]. She is independent with ADLs but states she has had some difficulties with ambulation due to heavy drinking. CURRENT FUNCTIONAL STATUS:: Laina was sitting up in bed when CM came to visit. She stated that she is feeling better than she was yesterday but still has pain. She acknowledged that she has been drinking 2-3 beers a day for the past few days because she ran out of Librium and Ativan. She states that the nurse at [facility] told her a couple of beers a day was OK so she would not go into DT's. She has an appointment with a new PCP in early December and she says the plan is to give her a prescription for enough Librium and Valium to last until she sees her new PCP. Has patient been provided with information about the portal?: No Did the patient sign up for the portal?: No CODE STATUS:: Full Code INSURANCE COVERAGE / FINANCIAL ISSUES:: Medicaid [place] CURRENT HOME/COMMUNITY SERVICES/EQUIPMENT:: none currently PRIMARY CARE PHYSICIAN:: none POTENTIAL DISCHARGE NEEDS:: follow up with surgeon and establish with PCP. Follow up with discharge plan of care PATIENT/FAMILY EDUCATION NEEDS:: Discharge plan, limitations,follow up plan of care, Ask Me Three. ANTICIPATED BARRIERS TO DISCHARGE:: none identified TRANSPORTATION:: via private vehicle with when ready PLAN:: Laina is receiving pain medicine and undergoing testing to determine the cause of her epigastric pain.She will be discharged home with no additional services when ready. CM will continue to provide support to patient, family and discharge plan of care.
[2018-12-14 12:28] LABS: Lipase 26 U/L (73-393)
--- NOTE | 2018-12-14 12:36 | W.PM.HP.N ---
Date of service: 12/14/18 Time of Service: 12:36 Assessment and Plan (1) Epigastric pain: Current visit: Yes Status: Acute (2) Tachycardia: Current visit: Yes Status: Acute The patient has had a stable Hgb and no clinical evidence of bleeding. Her high heart rate is likely multifactorial - inflammation/anxiety/alcohol withdrawal. Her baseline is high. Will resume Ativan and Librium. Has a mildly elevated temp and WBC. Will monitor for high fever. Blood cultures and UA ordered. Discussed with GI at [facility] and no empiric antibiotics advised at this time. History of Present Illness Narrative: This patient presented yesterday to the emergency department with complaints of epigastric pain that radiated into her chest. Recent history is significant for drainage of a pseudocyst 2 days prior at [facility]. The drain traverses through the duodenum into the pseudocyst. CT scan of the abdomen showed good placement of the drain and decrease in the size of the pseudocyst compared to a few weeks prior. Discussion was held with the [facility] pediatric neuropsychologist who felt that the patient should be observed to ensure no bleeding complication developed. The patient has not noted any blood in her stools. She feels that her pain is actually improved from prior to the procedure. Her anxiety has significantly increased. Her previously prescribed Librium and Ativan ran out on Monday and she does not have a follow-up appointment with her primary care physician until December 21. She has not noted any fevers. Her stools have been quite loose following the drain placement. Review of Systems Constitutional Denies fatigue and Denies headache(s) Eyes Denies change in vision ENT Denies headache(s) and Denies neck mass Cardiovascular Denies edema and Denies dyspnea Respiratory Denies cough, Denies dyspnea and Denies wheezing Gastrointestinal Denies hematochezia Genitourinary Denies abnormal vaginal bleeding and Denies dysuria Musculoskeletal Denies joint swelling Integumentary/Breasts Denies new lesions and Denies rash Neurologic Denies confusion, Denies headache(s) and Denies focal weakness Psychiatric Reports system reviewed and no additional complaints, except as docu and Denies confusion Endocrine Denies fatigue Hematologic/Lymphatic Denies easy bleeding and Denies lymphadenopathy Allergic/Immunologic Denies wheezing [facility] Medical History Pancreatic pseudocyst (Chronic) Chronic pancreatitis (Chronic) Anxiety (Chronic) Withdrawal seizures (Suspected) History of DVT (deep vein thrombosis) (Chronic) Alcohol abuse (Chronic) Acute pancreatitis (Acute) Hemorrhagic pancreatitis (Resolved) DVT (deep venous thrombosis) (Inactive) Pancreatitis (Inactive) Surgical History H/O LEEP (Acute) H/O chest tube placement (Inactive) Social History Smoking/Tobacco Use Status: Current every day Tobacco Type: cigarettes Tobacco: How many years used: 21 Alcohol Intake: current Alcohol Intake frequency: 3 or more drinks per day Alcohol type: beer Drug use: Occasionally Substance use type: marijuana Details: recorded h/o MJ and drug use but patient denies today Do you feel safe at home: Yes Do you feel safe in your relationship?: Yes Additional Social history: Patient is and has 2 children ages 13 and 14. Moved here from [place] approximately 2 years ago, now lives in [place]. She is a [id number] mother. Reports ongoing alcohol use. 30+-pack-year history of smoking. Meds Home Medications Medication Instructions Recorded Confirmed Type acetaminophen [Mapap Extra 500 mg PO Q4H PRN PRN #0 tab 12/05/18 12/13/18 Rx Strength] pantoprazole 40 mg PO DAILY@0730 #30 tab 12/05/18 12/13/18 Rx promethazine 25 mg PO Q6H PRN PRN #30 tab 12/05/18 12/13/18 Rx sertraline 50 mg PO DAILY #30 tab 12/05/18 12/13/18 Rx sucralfate 1 g PO AC & HS #120 tab 12/05/18 12/13/18 Rx Allergies Allergy/AdvReac Type Severity Reaction Status Date / Time amoxicillin Allergy Unverified 12/13/18 12:47 codeine Allergy Unverified 12/13/18 12:47 Exam Const Orientation: oriented x3 HENMT Head: normal to inspection Eyes Sclera: sclerae normal Pupils: PERRL Neck Neck: no lymphadenopathy Lymphatic: no lymphadenopathy noted Resp Effort & Inspection: normal respiratory effort Auscultation: clear to auscultation bilaterally and no wheezes Cardio Rate: regular rate and tachycardic Rhythm: regular rhythm GI Inspection: distended Palpation: soft, no hepatosplenomegaly, no hernias and tender (mild, no peritonitis) in the epigastrum Skin General skin exam: no rashes or lesions noted Neuro General: alert Cognition: normal cognition Extrem General: normal to inspection Psych Affect: normal affect Attitude: cooperative Results Labs : 12/14/18 06:20 12/13/18 12:45 Laboratory Results - last 24 hr 12/13/18 12/13/18 12/13/18 12:45 12:45 12:45 WBC 15.61 H RBC 4.46 Hgb 14.1 Hct 42.5 MCV 95.3 H MCH 31.6 MCHC 33.2 RDW 15.1 H Plt Count 803 H* MPV 9.2 Immature Gran % 0.4 Neutrophils % 84.7 Lymphocytes % 8.0 Monocytes % 6.6 Eosinophils % 0.2 Basophils % 0.1 Absolute Neutrophils 13.22 H Absolute Lymphocytes 1.25 Absolute Monocytes 1.03 H Absolute Eosinophils 0.03 Absolute Basophils 0.02 Differential Comment Diff reviewed RBC Morphology See below Polychromasia Present Anisocytosis 1+ Sodium 137 Potassium 4.9 Chloride 101 Carbon Dioxide 22.2 Anion Gap 13.8 H BUN 3 L Creatinine 0.54 L Estimated GFR/1.73 m2 >= 60.00 Glucose 147 H Calcium 9.6 Total Bilirubin 0.4 AST 24 ALT 15 Alkaline Phosphatase 236 H Troponin I Total Protein 8.0 Albumin 3.2 L Lipase 31 L Ethyl Alcohol 13.1 12/13/18 12/13/18 12/14/18 15:30 20:12 06:20 WBC 14.49 H RBC 3.61 L Hgb 11.4 L D 11.4 L Hct 35.1 L MCV 97.2 H MCH 31.6 MCHC 32.5 RDW 14.9 H Plt Count 576 H D MPV 9.8 Immature Gran % 0.5 Neutrophils % 77.8 Lymphocytes % 9.2 Monocytes % 11.9 Eosinophils % 0.5 Basophils % 0.1 Absolute Neutrophils 11.27 H Absolute Lymphocytes 1.33 Absolute Monocytes 1.72 H Absolute Eosinophils 0.07 Absolute Basophils 0.01 Differential Comment Diff reviewed RBC Morphology Polychromasia Anisocytosis Sodium Potassium Chloride Carbon Dioxide Anion Gap BUN Creatinine Estimated GFR/1.73 m2 Glucose Calcium Total Bilirubin AST ALT Alkaline Phosphatase Troponin I < 0.05 Total Protein Albumin Lipase Ethyl Alcohol 12/14/18 12:05 WBC RBC Hgb Hct MCV MCH MCHC RDW Plt Count MPV Immature Gran % Neutrophils % Lymphocytes % Monocytes % Eosinophils % Basophils % Absolute Neutrophils Absolute Lymphocytes Absolute Monocytes Absolute Eosinophils Absolute Basophils Differential Comment RBC Morphology Polychromasia Anisocytosis Sodium Potassium Chloride Carbon Dioxide Anion Gap BUN Creatinine Estimated GFR/1.73 m2 Glucose Calcium Total Bilirubin AST ALT Alkaline Phosphatase Troponin I Total Protein Albumin Lipase 26 L Ethyl Alcohol Last Vital Signs Temp 99.9 F H 12/14/18 09:10 Pulse 122 H 12/14/18 09:10 Resp 20 12/14/18 09:10 BP 121/78 12/14/18 09:10 Pulse Ox 100 12/14/18 09:10
--- NOTE | 2018-12-14 12:46 | HPE_ITS ---
Date of service: 12/14/18 Time of Service: 12:36 Assessment and Plan (1) Epigastric pain: Current visit: Yes Status: Acute (2) Tachycardia: Current visit: Yes Status: Acute The patient has had a stable Hgb and no clinical evidence of bleeding. Her high heart rate is likely multifactorial - inflammation/anxiety/alcohol wit hdrawal. Her baseline is high. Will resume Ativan and Librium. Has a mildly elevated temp and WBC. Will monitor for high fever. Blood cultures and UA ordered. Discussed with GI at [facility] and no empiric antibiotics advised at this time. History of Present Illness Narrative: This patient presented yesterday to the emergency department with complaints of epigastric pain that radiated into her chest. Recent history is s ignificant for drainage of a pseudocyst 2 days prior at [facility]. The drain traverses through the duodenum into the pseudocyst. CT scan of the abdomen showed good placement of the drain and decrease in the size of the pseudocyst compared to a few weeks prior. Discussion was held with the [facility] floor renovator who felt that the patient should be observed to ensure no bleeding complication developed. The patient has not noted any blood in her stools. She feels that her pain is actually improved from prior to the procedure. Her anxiety has significantly increased. Her previously prescribed Librium and Ativan ran out on Monday and she does not have a follow-up appointment with her primary care physician until December 21. She has not noted any fevers. Her stools have been quite loose following the drain placement. Review of Systems Constitutional Denies fatigue and Denies headache(s) Eyes Denies change in vision ENT Denies headache(s) and Denies neck mass Cardiovascular Denies edema and Denies dyspnea Respiratory Denies cough, Denies dyspnea and Denies wheezing Gastrointestinal Denies hematochezia Genitourinary Denies abnormal vaginal bleeding and Denies dysuria Musculoskeletal Denies joint swelling Integumentary/Breasts Denies new lesions and Denies rash Neurologic Denies confusion, Denies headache(s) and Denies focal weakness Psychiatric Reports system reviewed and no additional complaints, except as docu and Denies confusion Endocrine Denies fatigue Hematologic/Lymphatic Denies easy bleeding and Denies lymphadenopathy Allergic/Immunologic Denies wheezing [facility] Medical History Pancreatic pseudocyst (Chronic) Chronic pancreatitis (Chronic) Anxiety (Chronic) Withdrawal seizures (Suspected) History of DVT (deep vein thrombosis) (Chronic) Alcohol abuse (Chronic) Acute pancreatitis (Acute) Hemorrhagic pancreatitis (Resolved) DVT (deep venous thrombosis) (Inactive) Pancreatitis (Inactive) Surgical History H/O LEEP (Acute) H/O chest tube placement (Inactive) Social History Smoking/Tobacco Use Status: Current every day Tobacco Type: cigarettes Tobacco: How many years used: 21 Alcohol Intake: current Alcohol Intake frequency: 3 or more drinks per day Alcohol type: beer Drug use: Occasionally Substance use type: marijuana Details: recorded h/o MJ and drug use but patient denies today Do you feel safe at home: Yes Do you feel safe in your relationship?: Yes Additional Social history: Patient is and has 2 children ages 13 and 14. Moved here from [place] approximately 2 years ago, now lives in [place]. She is a [id number] mother. Reports ongoing alcohol use. 30+-pack-year history of smoking. Meds Home Medications Medication Instructions Recorded Confirmed Type acetaminophen [Mapap Extra 500 mg PO Q4H PRN PRN #0 tab 12/05/18 12/13/18 Rx Strength] pantoprazole 40 mg PO DAILY@0730 #30 tab 12/05/18 12/13/18 Rx promethazine 25 mg PO Q6H PRN PRN #30 tab 12/05/18 12/13/18 Rx sertraline 50 mg PO DAILY #30 tab 12/05/18 12/13/18 Rx sucralfate 1 g PO AC & HS #120 tab 12/05/18 12/13/18 Rx Allergies Allergy/AdvReac Type Severity Reaction Status Date / Time amoxicillin Allergy Unverified 12/13/18 12:47 codeine Allergy Unverified 12/13/18 12:47 Exam Const Orientation: oriented x3 HENMT Head: normal to inspection Eyes Sclera: sclerae normal Pupils: PERRL Neck Neck: no lymphadenopathy Lymphatic: no lymphadenopathy noted Resp Effort & Inspection: normal respiratory effort Auscultation: clear to auscultation bilaterally and no wheezes Cardio Rate: regular rate and tachycardic Rhythm: regular rhythm GI Inspection: distended Palpation: soft, no hepatosplenomegaly, no hernias and tender (mild, no peritonitis) in the epigastrum Skin General skin exam: no rashes or lesions noted Neuro General: alert Cognition: normal cognition Extrem General: normal to inspection Psych Affect: normal affect Attitude: cooperative Results Labs : 12/14/18 06:20 12/13/18 12:45 Laboratory Results - last 24 hr 12/13/18 12/13/18 12/13/18 12:45 12:45 12:45 WBC 15.61 H RBC 4.46 Hgb 14.1 Hct 42.5 MCV 95.3 H MCH 31.6 MCHC 33.2 RDW 15.1 H Plt Count 803 H* MPV 9.2 Immature Gran % 0.4 Neutrophils % 84.7 Lymphocytes % 8.0 Monocytes % 6.6 Eosinophils % 0.2 Basophils % 0.1 Absolute Neutrophils 13.22 H Absolute Lymphocytes 1.25 Absolute Monocytes 1.03 H Absolute Eosinophils 0.03 Absolute Basophils 0.02 Differential Comment Diff reviewed RBC Morphology See below Polychromasia Present Anisocytosis 1+ Sodium 137 Potassium 4.9 Chloride 101 Carbon Dioxide 22.2 Anion Gap 13.8 H BUN 3 L Creatinine 0.54 L Estimated GFR/1.73 m2 >= 60.00 Glucose 147 H Calcium 9.6 Total Bilirubin 0.4 AST 24 ALT 15 Alkaline Phosphatase 236 H Troponin I Total Protein 8.0 Albumin 3.2 L Lipase 31 L Ethyl Alcohol 13.1 12/13/18 12/13/18 12/14/18 15:30 20:12 06:20 WBC 14.49 H RBC 3.61 L Hgb 11.4 L D 11.4 L Hct 35.1 L MCV 97.2 H MCH 31.6 MCHC 32.5 RDW 14.9 H Plt Count 576 H D MPV 9.8 Immature Gran % 0.5 Neutrophils % 77.8 Lymphocytes % 9.2 Monocytes % 11.9 Eosinophils % 0.5 Basophils % 0.1 Absolute Neutrophils 11.27 H Absolute Lymphocytes 1.33 Absolute Monocytes 1.72 H Absolute Eosinophils 0.07 Absolute Basophils 0.01 Differential Comment Diff reviewed RBC Morphology Polychromasia Anisocytosis Sodium Potassium Chloride Carbon Dioxide Anion Gap BUN Creatinine Estimated GFR/1.73 m2 Glucose Calcium Total Bilirubin AST ALT Alkaline Phosphatase Troponin I < 0.05 Total Protein Albumin Lipase Ethyl Alcohol 12/14/18 12:05 WBC RBC Hgb Hct MCV MCH MCHC RDW Plt Count MPV Immature Gran % Neutrophils % Lymphocytes % Monocytes % Eosinophils % Basophils % Absolute Neutrophils Absolute Lymphocytes Absolute Monocytes Absolute Eosinophils Absolute Basophils Differential Comment RBC Morphology Polychromasia Anisocytosis Sodium Potassium Chloride Carbon Dioxide Anion Gap BUN Creatinine Estimated GFR/1.73 m2 Glucose Calcium Total Bilirubin AST ALT Alkaline Phosphatase Troponin I Total Protein Albumin Lipase 26 L Ethyl Alcohol Last Vital Signs Temp 99.9 F H 12/14/18 09:10 Pulse 122 H 12/14/18 09:10 Resp 20 12/14/18 09:10 BP 121/78 12/14/18 09:10 Pulse Ox 100 12/14/18 09:10
[2018-12-14 13:11] LABS: Bilirubin Negative (Negative); Blood Negative (Negative); Clarity Clear (Clear); Glucose Negative (Negative); Ketones Negative (Negative); Leukocyte Esterase Negative (Negative); Nitrite Negative (Negative); Specific Gravity 1.015 (1.005-1.025); Urobilinogen 0.2 EU/dL (Up TO 0.2); pH 7.5 (5-8)
[2018-12-14] MEDS: LORazepam 1 MG TAB PO ×2 (13:51→19:34)
[2018-12-14] MEDS: Ketorolac 30 MG/ML VIAL IVP ×2 (13:55→20:11)
--- NOTE | 2018-12-14 14:25 | PHARADMIT ---
Admission Pharmacy Clinical Review epigastric pain Code Status Full Code Current Weight 55.9 kg Renally Cleared and Narrow Therapeutic Index Meds Crcl ~79.6 mL/min current meds okay QTc Value / Action Taken QTc 454 BP Control, Fever BP 121/75 Tmax 38.1 Electrolytes reviewed within normal limits DVT Prophylaxis none Opiate Usage / Scheduled Bowel Regimen Ordered no/no Plt/SCr for Heparin / Enoxaparin plt 576 SCr 0.54 INR for Warfarin n/a H/H stable, WBC/Bands h/h 11.4/35.1 wbc 14.49 Antibiotic appropriateness none Cultures and Sensitivities blood cultures pending Surgical ABX d/c within 24 hr n/a DM control / Insulin Dosing BG 147 none Heart Failure (Check EF%) (WYATT's, B-Block, Diuretics) none IV to PO Switch n/a Home Meds Reviewed yes Home Meds Not Ordered all ordered Comments
--- NOTE | 2018-12-14 14:36 | CHAPLAIN ---
Billie was discharged form [facility] last week, and then had a procedure at [facility]. She came to the ER because of epigastria pain, which is believed to be because of her procedure, she said. But because some of the pain was chest pain, she called cleaning and maintenance worker. Zahraa said she is grateful to be here where nursing staff can keep on eye on her while she is having chess pain. She expects her family to be in tonight.
[2018-12-14] MEDS: Acetaminophen 325 MG TAB 650 MG PO (16:30)
[2018-12-14] MEDS: Normal Saline Flush 10 ML SYR IVP (16:31)
[2018-12-15 00:43] VITALS: BP 105/71; PULSE 111; RESP 18; TEMP 35.8; O2SAT 99
[2018-12-15] MEDS: LORazepam 1 MG TAB PO/SL ×2 (00:47→06:56)
[2018-12-15] MEDS: Promethazine 25 MG TAB PO (01:14)
[2018-12-15 03:08] VITALS: RESP 18
[2018-12-15] MEDS: Ketorolac 30 MG/ML VIAL IVP ×2 (04:10→10:33)
[2018-12-15] MEDS: Normal Saline Flush 10 ML SYR IVP ×3 (04:11→10:33)
[2018-12-15 06:00] VITALS: RESP 18
[2018-12-15] MEDS: Acetaminophen 325 MG TAB 650 MG PO (06:37)
[2018-12-15] MEDS: Ondansetron 4 MG/2 ML VIAL IVP (06:38)
[2018-12-15 06:57] VITALS: BP 101/69; PULSE 105; RESP 18; TEMP 35.5; O2SAT 99
[2018-12-15 07:40] VITALS: BP 101/68; PULSE 101; RESP 17; TEMP 36.4; O2SAT 99
[2018-12-15 08:24] LABS: Abs Immature Grans 0.07 k/cumm (0.0-0.09); Absolute Lymphocyte Count 1.55 k/cumm (1.2-3.4); Basophils % 0.1; Eosinophils % 0.7; HGB 11.8 g/dL (12.0-15.5); Immature Grans % 0.5; Lymphocytes % 11.4; Mean Corp. HGB Concentration 32.8 g/dL (32.0-36.0); Mean Corpuscular Hemoglobin 32.1 pg (27.0-33.0); Mean Corpuscular Volume 97.8 fL (80-95); Mean Platelet Volume 9.9 fL (8.0-11.0); Monocytes % 10.3; Platelet Count 566 x1000/uL (130-400); RBC 3.68 m/cumm (4.00-5.20); RBC Distribution Width 14.9 % (11.7-14.6); White Blood Cell Count 13.58 k/cumm (4.4-10.8)
[2018-12-15] MEDS: Sucralfate 1 GM TAB PO (08:25)
[2018-12-15] MEDS: LORazepam 1 MG TAB PO (08:25)
[2018-12-15] MEDS: Pantoprazole 40 MG TABCR PO (08:25)
[2018-12-15] MEDS: Sertraline 50 MG TAB PO (08:26)
[2018-12-15] MEDS: Nicotine 21 MG/24 HR PATCH TD (08:26)
[2018-12-15 08:31] LABS: Absolute Basophil Count 0.01 k/cumm (0.0-0.2); Absolute Neutrophil Count 10.46 k/cumm (1.2-6.7)
--- NOTE | 2018-12-15 09:20 | W.PM.PROGNOT ---
Date of Service Date of service: 12/15/18 Time of Service: 09:20 Assessment and Plan (1) Epigastric pain: Current visit: Yes Status: Resolved Improved DC home Subjective Interval history since last seen: Feels better, less pain and bloating Tolerating PO Stools are less loose Exam Narrative Exam Narrative: No distress Lungs CTA Abdomen soft, minimal tenderness, not as distended Objective Objective Clinical Data: Abnormal lab results 12/14/18 12/15/18 Range/Units 12:05 07:20 WBC 13.58 H (4.4-10.8) k/cumm RBC 3.68 L (4.00-5.20) m/cumm Hgb 11.8 L (12.0-15.5) g/dL MCV 97.8 H (80-95) fL RDW 14.9 H (11.7-14.6) % Plt Count 566 H (130-400) x1000/uL Absolute Neutrophils 10.46 H (1.2-6.7) k/cumm Absolute Monocytes 1.40 H (0.11-0.7) k/cumm Lipase 26 L (73-393) U/L Vital Signs Temperature 97.5 F L 12/15/18 07:40 Temperature Source Tympanic 12/15/18 07:40 Pulse 101 H 12/15/18 07:40 Pulse Rhythm Regular 12/14/18 19:30 Pulse 114 H 12/13/18 15:50 Respiratory Rate 17 12/15/18 07:40 Respiratory Effort Non-Labored 12/14/18 19:30 Respiratory Depth Normal 12/14/18 19:30 Respiratory Pattern Normal 12/14/18 19:30 Blood Pressure 101/68 12/15/18 07:40 Blood Pressure Mean 82 12/13/18 14:15 Blood Pressure Position Sitting 12/13/18 12:37 Pulse Oximetry 99 12/15/18 07:40 Oxygen Delivery Method Room Air 12/15/18 07:40 Oxygen Flow Rate 0 12/15/18 07:40 Pain Level 8 12/15/18 08:25 Comment 12/15/18 06:00 Intake & Output 12/14/18 12/14/18 12/15/18 11:59 23:59 11:59 Intake Total 2321.666 / 5368.749 3047.083 / 5368.749 Output Total 5300 / 16245 6800 / 77484 Balance -2978.334 / -6731.251 -3752.917 / -6731.251 Intake: IV 1841.666 / 3568.749 1727.083 / 3568.749 Oral 480 / 1800 1320 / 1800 Output: Urine 5300 / 91149 6800 / 79183 Other: Urine Color Yellow Yellow Urine Appearance Clear Clear Urine Odor Normal Normal Voiding Methods Toilet Toilet Laboratory Results WBC 13.58 k/cumm (4.4-10.8) H 12/15/18 07:20 RBC 3.68 m/cumm (4.00-5.20) L 12/15/18 07:20 Hgb 11.8 g/dL (12.0-15.5) L 12/15/18 07:20 Hct 36.0 % (36.0-46.0) 12/15/18 07:20 MCV 97.8 fL (80-95) H 12/15/18 07:20 MCH 32.1 pg (27.0-33.0) 12/15/18 07:20 MCHC 32.8 g/dL (32.0-36.0) 12/15/18 07:20 RDW 14.9 % (11.7-14.6) H 12/15/18 07:20 Plt Count 566 x1000/uL (130-400) H 12/15/18 07:20 MPV 9.9 fL (8.0-11.0) 12/15/18 07:20 Immature Gran % 0.5 12/15/18 07:20 Neutrophils % 77.0 12/15/18 07:20 Lymphocytes % 11.4 12/15/18 07:20 Monocytes % 10.3 12/15/18 07:20 Eosinophils % 0.7 12/15/18 07:20 Basophils % 0.1 12/15/18 07:20 Absolute Neutrophils 10.46 k/cumm (1.2-6.7) H 12/15/18 07:20 Absolute Lymphocytes 1.55 k/cumm (1.2-3.4) 12/15/18 07:20 Absolute Monocytes 1.40 k/cumm (0.11-0.7) H 12/15/18 07:20 Absolute Eosinophils 0.10 k/cumm (0.0-0.7) 12/15/18 07:20 Absolute Basophils 0.01 k/cumm (0.0-0.2) 12/15/18 07:20 Differential Comment Diff reviewed 12/14/18 06:20 RBC Morphology See below 12/13/18 12:45 Polychromasia Present 12/13/18 12:45 Anisocytosis 1+ 12/13/18 12:45 Sodium 137 mmol/L (136-145) 12/13/18 12:45 Potassium 4.9 mmol/L (3.5-5.1) 12/13/18 12:45 Chloride 101 mmol/L (98-107) 12/13/18 12:45 Carbon Dioxide 22.2 mmol/L (21.0-32.0) 12/13/18 12:45 Anion Gap 13.8 mmol/L (3-11) H 12/13/18 12:45 BUN 3 mg/dL (7-18) L 12/13/18 12:45 Creatinine 0.54 mg/dL (0.55-1.02) L 12/13/18 12:45 Estimated GFR/1.73 m2 >= 60.00 (mL/min/1.73m2) 12/13/18 12:45 Glucose 147 mg/dL (70-100) H 12/13/18 12:45 Calcium 9.6 mg/dL (8.5-10.1) 12/13/18 12:45 Total Bilirubin 0.4 mg/dL (0.2-1.0) 12/13/18 12:45 AST 24 U/L (15-37) 12/13/18 12:45 ALT 15 U/L (12-78) 12/13/18 12:45 Alkaline Phosphatase 236 U/L (46-116) H 12/13/18 12:45 Troponin I < 0.05 ng/mL (0.00-0.06) 12/13/18 15:30 Total Protein 8.0 g/dL (6.4-8.2) 12/13/18 12:45 Albumin 3.2 g/dL (3.4-5.0) L 12/13/18 12:45 Lipase 26 U/L (73-393) L 12/14/18 12:05 Urine Color Yellow (Yellow) 12/14/18 11:40 Urine Clarity Clear (Clear) 12/14/18 11:40 Urine pH 7.5 (5-8) 12/14/18 11:40 Ur Specific [place] 1.015 (1.005-1.025) 12/14/18 11:40 Urine Protein Negative mg/dL (Negative) 12/14/18 11:40 Urine Ketones Negative mg/dL (Negative) 12/14/18 11:40 Urine Blood Negative (Negative) 12/14/18 11:40 Urine Nitrite Negative (Negative) 12/14/18 11:40 Urine Bilirubin Negative (Negative) 12/14/18 11:40 Urine Urobilinogen 0.2 EU/dL (Up TO 0.2) 12/14/18 11:40 Ur Leukocyte Esterase Negative (Negative) 12/14/18 11:40 Urine Glucose Negative mg/dL (Negative) 12/14/18 11:40 Ethyl Alcohol 13.1 mg/dL (<3) 12/13/18 12:45
--- NOTE | 2018-12-15 09:24 | DSE_ITS ---
Date of service: 12/15/18 Time of Service: 09:22 DS: Diagnosis Discharge Diagnosis (1) Epigastric pain: Status: Resolved Discharge Plan Disposition Patient Disposition: HOME Condition: Stable Discharge Details Chief Complaint: GenMedical Clinical Impression: Acute epigastric pain Reason For Visit: EPIGASTRIC PAIN Admit Date/Time: 12/13/18 16:07 Admit Provider: Samreen Hernández Attending Provider: Samreen Hernández Primary Care Provider: None,None ED Provider: Jaime Goldberg Hospital Course Hospital Course: Pain and anxiety improved with Librium/ativan. Home Meds and New Rx's Prescriptions: New chlordiazepoxide HCl 5 mg Capsule 10 mg PO TID Qty: 21 RF: 0 lorazepam 1 mg Tablet 1 mg PO TID PRN (Reason: Anxiety) Qty: 21 RF: 0 ketorolac 10 mg tablet 10 mg PO Q8H PRN PRN (Reason: pain) 5 Days Qty: 20 RF: 0 lorazepam 1 mg tablet 1 mg PO TID PRN (Reason: anxiety) Qty: 21 RF: 0 Continued acetaminophen [Mapap Extra Strength] 500 mg Tablet 500 mg PO Q4H PRN PRNQty: 0 RF: 0 sucralfate 1 gram Tablet 1 g PO AC & HS Qty: 120 RF: 0 pantoprazole 40 mg Tablet,Delayed Release (Dr/Ec) 40 mg PO DAILY@0730 Qty: 30 RF: 0 promethazine 25 mg Tablet 25 mg PO Q6H PRN PRNQty: 30 RF: 0 sertraline 50 mg Tablet 50 mg PO DAILY Qty: 30 RF: 0 Discharge Instructions Additional Instructions: Follow up with new PCP as scheduled on 12/21/18 Activity:: Activity as Tolerated Equipment/Supplies:: No Equipment Needed Diet:: As Tolerated Discharge Orders Discharge Orders: Discharge Order (Routine); Ordered 12/15/18 Ordered By: Samreen Hernández DS: Data Vitals/I&O Vitals and I&O: Vital Signs Temperature 97.5 F L 12/15/18 07:40 Temperature Source Tympanic 12/15/18 07:40 Pulse 101 H 12/15/18 07:40 Pulse Rhythm Regular 12/14/18 19:30 Pulse 114 H 12/13/18 15:50 Respiratory Rate 17 12/15/18 07:40 Respiratory Effort Non-Labored 12/14/18 19:30 Respiratory Depth Normal 12/14/18 19:30 Respiratory Pattern Normal 12/14/18 19:30 Blood Pressure 101/68 12/15/18 07:40 Blood Pressure Mean 82 12/13/18 14:15 Blood Pressure Position Sitting 12/13/18 12:37 Pulse Oximetry 99 12/15/18 07:40 Oxygen Delivery Method Room Air 12/15/18 07:40 Oxygen Flow Rate 0 12/15/18 07:40 Pain Level 8 12/15/18 08:25 Comment 12/15/18 06:00 Intake & Output 12/14/18 12/14/18 12/15/18 11:59 23:59 11:59 Intake Total 2321.666 / 5368.749 3047.083 / 5368.749 Output Total 5300 / 69239 6800 / 87566 Balance -2978.334 / -6731.251 -3752.917 / -6731.251 Intake: IV 1841.666 / 3568.749 1727.083 / 3568.749 Oral 480 / 1800 1320 / 1800 Output: Urine 5300 / 58729 6800 / 72093 Other: Urine Color Yellow Yellow Urine Appearance Clear Clear Urine Odor Normal Normal Voiding Methods Toilet Toilet Labs on day of discharge: Labs from last 24 hours 12/15/18 12/14/18 12/14/18 07:20 12:05 11:40 WBC 13.58 H RBC 3.68 L Hgb 11.8 L Hct 36.0 MCV 97.8 H MCH 32.1 MCHC 32.8 RDW 14.9 H Plt Count 566 H MPV 9.9 Immature Gran % 0.5 Neutrophils % 77.0 Lymphocytes % 11.4 Monocytes % 10.3 Eosinophils % 0.7 Basophils % 0.1 Absolute Neutrophils 10.46 H Absolute Lymphocytes 1.55 Absolute Monocytes 1.40 H Absolute Eosinophils 0.10 Absolute Basophils 0.01 Lipase 26 L Urine Color Yellow Urine Clarity Clear Urine pH 7.5 Ur Specific [place] 1.015 Urine Protein Negative Urine Ketones Negative Urine Blood Negative Urine Nitrite Negative Urine Bilirubin Negative Urine Urobilinogen 0.2 Ur Leukocyte Esterase Negative Urine Glucose Negative 12/14/18 12:05 Blood Blood Culture - Pending 12/14/18 11:55 Blood Blood Culture - Pending Preliminary micro results at discharge 12/14/18 12:05 Blood Culture - Pending Blood 12/14/18 11:55 Blood Culture - Pending Blood [facility] Medical History Pancreatic pseudocyst (Chronic) Chronic pancreatitis (Chronic) Anxiety (Chronic) Withdrawal seizures (Suspected) History of DVT (deep vein thrombosis) (Chronic) Alcohol abuse (Chronic) Acute pancreatitis (Acute) Hemorrhagic pancreatitis (Resolved) DVT (deep venous thrombosis) (Inactive) Pancreatitis (Inactive) Surgical History H/O LEEP (Acute) H/O chest tube placement (Inactive) Social History Smoking/Tobacco Use Status: Current every day Tobacco Type: cigarettes Tobacco: How many years used: 21 Alcohol Intake: current Alcohol Intake frequency: 3 or more drinks per day Alcohol type: beer Drug use: Occasionally Substance use type: marijuana Details: recorded h/o MJ and drug use but patient denies today Do you feel safe at home: Yes Do you feel safe in your relationship?: Yes Additional Social history: Patient is and has 2 children ages 13 and 14. Moved here from [place] approximately 2 years ago, now lives in [place]. 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 Reports ongoing alcohol use. 30 +-pack-year history of smoking.
[2018-12-15 09:35] VITALS: BP 102/65; PULSE 106; RESP 16; TEMP 36.4; O2SAT 99
--- NOTE | 2018-12-15 10:00 | PDOC.CMDIS ---
LACE Index Scoring Tool - Questions: Length of Stay (in days): 2 Acuity (Admit via E.D.?): Yes E.D. Visits: 4 - Answers: Total Score: 9 Risk of Readmission: Low Risk Care Management Discharge Reason for Hospitalization: epigastric pain Discharge Plan: S/O: Zahraa was up and dressed. Looking forward to going home this morning. No services will be needed at home. , Kelvin, will bring her home by car. Patient/Family Education Needs: Laina understands the importance of keeping follow up appointments withher PCP. At this time she is unwilling to consider stopping her use of alcohol and cigarettes. Ongoing education will be helpful during PCP visits.
== END 2018-12-15 10:55 | disposition home or self-care (01) ==
LOC: ER 16:45 → MS 12-14 08:36
PROVIDERS: Admitting Provider Surgery; Emergency Provider Student in an Organized Health Care Education/Training Program; Visit Provider Surgery
DX: R10.13 Epigastric pain (principal); F10.230 Alcohol dependence with withdrawal, uncomplicated; F17.210 Nicotine dependence, cigarettes, uncomplicated; R00.0 Tachycardia, unspecified
CPT/HCPCS: 36410; 36415; 80053; 83690; 87040; 87077; 93005; 96361; 96374; 96375; 99223; 99231; 99232; 99238; 99285; 74177; 80320; 81003; 84484; 85018; 85025; 93010; G0378; J1885; J2060; J2405; J3490

== ENCOUNTER 2018-12-21 15:41 | Outpatient (REF) | payer MEDICAID, SELFPAY ==
[2018-12-21 18:20] LABS: BUN 5 mg/dL (7-18); CREATININE 0.75 mg/dL (0.55-1.02); Chloride 103 mmol/L (98-107); Glucose 119 mg/dL (70-100); Potassium 4.6 mmol/L (3.5-5.1); Sodium 140 mmol/L (136-145)
== END 2018-12-21 16:01 ==
LOC: NCHCN 15:41
PROVIDERS: Visit Provider Nurse Practitioner Family
DX: E87.1 Hypo-osmolality and hyponatremia (principal)
CPT/HCPCS: 80048

== ENCOUNTER 2018-12-27 12:09 | Emergency (ER) | payer MEDICAID, SELFPAY ==
[2018-12-27 12:06] VITALS: BP 117/84; PULSE 90; RESP 16; TEMP 36.7; O2SAT 99
--- NOTE | 2018-12-27 12:24 | W.ED.GENAD ---
Discharge Plan Disposition Patient Disposition: HOME Condition: Improving Discharge Details Chief Complaint: Abd Prob Clinical Impression: Alcohol abuse, Gastritis Primary Care Provider: None,None ED Provider: Pramod Mackey Home Meds and New Rx's Prescriptions: Continued acetaminophen [Mapap Extra Strength] 500 mg Tablet 500 mg PO Q4H PRN PRNQty: 0 RF: 0 sucralfate 1 gram Tablet 1 g PO AC & HS Qty: 120 RF: 0 pantoprazole 40 mg Tablet,Delayed Release (Dr/Ec) 40 mg PO DAILY@0730 Qty: 30 RF: 0 promethazine 25 mg Tablet 25 mg PO Q6H PRN PRNQty: 30 RF: 0 sertraline 50 mg Tablet 50 mg PO DAILY Qty: 30 RF: 0 chlordiazepoxide HCl 5 mg Capsule 10 mg PO TID Qty: 21 RF: 0 lorazepam 1 mg Tablet 1 mg PO TID PRN (Reason: Anxiety) Qty: 21 RF: 0 lorazepam 1 mg tablet 1 mg PO TID PRN (Reason: anxiety) Qty: 21 RF: 0 Discharge Instructions Instructions: Gastritis (ED), Abuse of Alcohol (ED) Additional Instructions: Please avoid further abuse of alcohol. You are seen in the emergency department by assistant basketball coach. Please follow-up with them as you have discussed. I discussed her case with Soledad Irizarry today. Please follow-up with her in clinic. Continue your regular medications Medical Decision Making 38-year-old female presents via EMS. She states she has been drinking alcohol this morning, felt like I was going to have a seizure, but did not have a seizure. Instead she developed mid abdominal pain similar to previous episodes of pancreatitis. She arrives to the ER afebrile with a temp 36.7, pulse in the 90s, blood pressure 117/84. She is diffusely tender in her abdomen. Differential diagnosis includes alcoholic gastritis, pancreatitis, dehydration. IV access established, labs obtained, patient given fluids, antiemetic, PPI. Referred for laboratory testing. Patient has persistent mild leukocytosis which is not sniffily changed with a white blood cell count of 12, hematocrit 41 complete was 45. Her chemistries reveal sodium 134, potassium 3.5 chloride 97, bicarb 25. AST 15, ALT 11, lipase is 32. She is intoxicated with an alcohol level 410 Improved following medications. Consistent with alcoholic gastritis. Case discussed with her primary care Soledad Edie. The patient has had recidivistic alcohol abuse despite trials of outpatient Librium and Ativan detox tapers. Today, she is clinically improving, does not have evidence of acute intra-abdominal pathology beyond alcoholic gastritis. Patient seen in the emergency department by Preschool Assistant and was interviewed extensively at the bedside. After 4 hours in the emergency department the patient was clinically improved, she requested discharge to home, she had made efforts to contact Ankit Huagn to pursue detoxification from alcohol. Lab Data Lab results reviewed: Yes I reviewed the patient's lab results. Laboratory Results - last 24 hr 12/27/18 12/27/18 12/27/18 12:30 12:30 13:15 WBC 12.79 H RBC 4.48 Hgb 14.0 Hct 41.0 MCV 91.5 MCH 31.3 MCHC 34.1 RDW 14.9 H Plt Count 485 H MPV 9.2 Immature Gran % 1.3 Neutrophils % 70.5 Lymphocytes % 21.3 Monocytes % 6.2 Eosinophils % 0.5 Basophils % 0.2 Absolute Neutrophils 9.02 H Absolute Lymphocytes 2.72 Absolute Monocytes 0.79 H Absolute Eosinophils 0.06 Absolute Basophils 0.03 Sodium 134 L Potassium 3.5 Chloride 97 L Carbon Dioxide 25.6 Anion Gap 11.4 H BUN 4 L Creatinine 0.47 L Estimated GFR/1.73 m2 >= 60.00 Glucose 164 H Calcium 8.3 L Magnesium 1.5 L Total Bilirubin 0.1 L AST 15 ALT 11 L Alkaline Phosphatase 220 H Total Protein 7.7 Albumin 3.1 L Lipase 32 L Urine Color Yellow Urine Clarity Clear Urine pH 5.5 Ur Specific [place] <= 1.005 Urine Protein Negative Urine Ketones Negative Urine Blood Negative Urine Nitrite Negative Urine Bilirubin Negative Urine Urobilinogen 0.2 Ur Leukocyte Esterase Negative Urine Glucose Negative Ethyl Alcohol 410.2 HPI General Mode of arrival: ambulatory. Date/Time Provider Initiated Documentation: 12/27/18 12:38. Limitations to Documentation: no limitations. Information obtained by: patient. History of Present Illness 38 year old F presents to the emergency department with the chief complaint of Alcohol use and recurrent abdominal pain, described as moderate, Quality is described as dull and constant, Patient reports no radiation. Patient started experiencing this hour(s) and it has been constant. No relieving factors improve symptom(s), No exacerbating factors reported . Patient notes other (Nauseated without emesis. Denies fall or injury.). Patient did receive the following treatments prior to arrival, none Related Data Home Medications Medication Instructions Recorded Confirmed acetaminophen [Mapap Extra 500 mg PO Q4H PRN PRN #0 tab 12/05/18 12/13/18 Strength] pantoprazole 40 mg PO DAILY@0730 #30 tab 12/05/18 12/13/18 promethazine 25 mg PO Q6H PRN PRN #30 tab 12/05/18 12/13/18 sertraline 50 mg PO DAILY #30 tab 12/05/18 12/13/18 sucralfate 1 g PO AC & HS #120 tab 12/05/18 12/13/18 chlordiazepoxide HCl 10 mg PO TID #21 cap 12/15/18 lorazepam 1 mg PO TID PRN #21 tab 12/15/18 lorazepam 1 mg PO TID PRN #21 tab 12/15/18 Previous Rx's Medication Instructions Recorded acetaminophen [Mapap Extra 500 mg PO Q4H PRN PRN #0 tab 12/05/18 Strength] pantoprazole 40 mg PO DAILY@0730 #30 tab 12/05/18 promethazine 25 mg PO Q6H PRN PRN #30 tab 12/05/18 sertraline 50 mg PO DAILY #30 tab 12/05/18 sucralfate 1 g PO AC & HS #120 tab 12/05/18 chlordiazepoxide HCl 10 mg PO TID #21 cap 12/15/18 lorazepam 1 mg PO TID PRN #21 tab 12/15/18 lorazepam 1 mg PO TID PRN #21 tab 12/15/18 Allergies Allergy/AdvReac Type Severity Reaction Status Date / Time amoxicillin Allergy Unverified 12/13/18 12:47 codeine Allergy Unverified 12/13/18 12:47 General Stated Complaint: Abd Prob JAMEEL: 3 Review of Systems Review of Systems No chest pain or shortness of breath. States that she ran out of her Ativan this morning but does admit to ongoing alcohol use daily. 8 systems reviewed and otherwise neg ON LICENSE OF [facility] Medical History Acute pancreatitis (Acute) Alcohol abuse (Chronic) Anxiety (Chronic) Chronic pancreatitis (Chronic) DVT (deep venous thrombosis) (Inactive) Hemorrhagic pancreatitis (Resolved) History of DVT (deep vein thrombosis) (Chronic) Pancreatic pseudocyst (Chronic) Pancreatitis (Inactive) Withdrawal seizures (Suspected) Social History Smoking/Tobacco Use Status: Current every day Tobacco Type: cigarettes Tobacco: How many years used: 21 Alcohol Intake: current Alcohol Intake frequency: 3 or more drinks per day Alcohol type: beer Drug use: Occasionally Substance use type: marijuana Details: recorded h/o MJ and drug use but patient denies today Do you feel safe at home: Yes Do you feel safe in your relationship?: Yes Additional Social history: Patient is and has 2 children ages 13 and 14. Moved here from [place] approximately 2 years ago, now lives in [place]. She is a [id number] mother. Reports ongoing alcohol use. 30+-pack-year history of smoking. Exam Narrative Exam Narrative: GEN: awake, alert, oriented 3. Pleasant, poorly groomed, interactive. Odor of alcohol HEAD: Normocephalic, atraumatic ENT: Mucous membranes moist, oropharynx edentulous, External ear exam unremarkable EYES: PERRL, EOMI NECK: Full ROM, no ROSENDO, no menigismus CHEST/RESP: Nontender, clear to auscultation bilateral, no wheeze/rhonchi/rales CARDIOVASCULAR: RRR, no murmur, rub hay. 2+ Rad pulse bilateral ABDOMEN: Soft, diffusely tender to palpation, no rebound when stethoscope released, no mass. +Bowel sounds EXT: Full ROM, no edema, no rash Neuro: Grossly normal neurologic exam, conversant, interactive. Psych: Speech fluent, thoughts congruent, affect normal M Course Vital Signs Temperature 36.7 C 12/27/18 12:06 Pulse 90 12/27/18 12:06 Respiratory Rate 16 12/27/18 12:06 Blood Pressure 117/84 12/27/18 12:06 Pulse Oximetry 99 12/27/18 12:06 Temperature 36.7 C 12/27/18 12:06 Temperature Source Temporal Artery Scan 12/27/18 12:06 Pulse 90 12/27/18 12:06 Respiratory Rate 16 12/27/18 12:06 Blood Pressure 117/84 12/27/18 12:06 Blood Pressure Position Supine 12/27/18 12:06 Pulse Oximetry 99 12/27/18 12:06 Oxygen Delivery Method Room Air 12/27/18 12:06 Oxygen Flow Rate 0 12/27/18 12:06
[2018-12-27 13:00] LABS: Abs Immature Grans 0.16 k/cumm (0.0-0.09); Absolute Lymphocyte Count 2.72 k/cumm (1.2-3.4); Absolute Monocyte Count 0.79 k/cumm (0.11-0.7); Basophils % 0.2; Eosinophils % 0.5; Immature Grans % 1.3; Lymphocytes % 21.3; Mean Corp. HGB Concentration 34.1 g/dL (32.0-36.0); Mean Corpuscular Hemoglobin 31.3 pg (27.0-33.0); Mean Corpuscular Volume 91.5 fL (80-95); Mean Platelet Volume 9.2 fL (8.0-11.0); Monocytes % 6.2; Neutrophils % 70.5; Platelet Count 485 x1000/uL (130-400); RBC 4.48 m/cumm (4.00-5.20); RBC Distribution Width 14.9 % (11.7-14.6); White Blood Cell Count 12.79 k/cumm (4.4-10.8)
[2018-12-27 13:01] LABS: Absolute Basophil Count 0.03 k/cumm (0.0-0.2); Absolute Eosinophil Count 0.06 k/cumm (0.0-0.7); Absolute Neutrophil Count 9.02 k/cumm (1.2-6.7)
[2018-12-27] MEDS: Ondansetron 4 MG/2 ML VIAL IVP (13:08)
[2018-12-27] MEDS: Pantoprazole 40 MG VIAL IVP (13:08)
[2018-12-27] MEDS: Normal Saline 1,000 ML 1000 ML IV (13:08)
--- NOTE | 2018-12-27 13:10 | NUR.NOTE ---
pt medicated as per mdo ambulatory to bathroom steady gait Nursing Note:
[2018-12-27 13:11] LABS: ALT 11 U/L (12-78); AST 15 U/L (15-37); Albumin 3.1 g/dL (3.4-5.0); Alkaline Phosphatase 220 U/L (46-116); Anion Gap 11.4 mmol/L (3-11); BUN 4 mg/dL (7-18); Bilirubin, Total 0.1 mg/dL (0.2-1.0); CO2 25.6 mmol/L (21.0-32.0); CREATININE 0.47 mg/dL (0.55-1.02); Calcium 8.3 mg/dL (8.5-10.1); Chloride 97 mmol/L (98-107); Glucose 164 mg/dL (70-100); Lipase 32 U/L (73-393); Magnesium 1.5 mg/dL (1.8-2.4); Potassium 3.5 mmol/L (3.5-5.1); Sodium 134 mmol/L (136-145); Total Protein 7.7 g/dL (6.4-8.2)
[2018-12-27 13:19] LABS: ETHANOL BLOOD 410.2 mg/dL (<3)
[2018-12-27 13:25] LABS: Bilirubin Negative (Negative); Blood Negative (Negative); Clarity Clear (Clear); Glucose Negative (Negative); Ketones Negative (Negative); Leukocyte Esterase Negative (Negative); Nitrite Negative (Negative); Specific Gravity <= 1.005 (1.005-1.025); Urobilinogen 0.2 EU/dL (Up TO 0.2); pH 5.5 (5-8)
[2018-12-27 16:25] VITALS: BP 132/78; PULSE 88; RESP 14; TEMP 36.9; O2SAT 98
== END 2018-12-27 16:24 | disposition home or self-care (01) ==
PROVIDERS: Emergency Provider Emergency Medicine
DX: K29.20 Alcoholic gastritis without bleeding (principal); F10.10 Alcohol abuse, uncomplicated; F41.9 Anxiety disorder, unspecified; F10.20 Alcohol dependence, uncomplicated
CPT/HCPCS: 80053; 83690; 96361; 96374; 96375; 99283; 99284; 80320; 81003; 83735; 85025; J2405

== ENCOUNTER 2018-12-27 21:18 | Emergency (ER) | payer MEDICAID, SELFPAY ==
[2018-12-27 21:32] VITALS: BP 138/81; PULSE 107; RESP 18; TEMP 36.6; O2SAT 98
--- NOTE | 2018-12-27 22:00 | W.ED.GENAD ---
Discharge Plan Disposition Patient Disposition: HOME Condition: Stable Discharge Details Chief Complaint: Nausea/Vomit/Diar Clinical Impression: Anxiety Primary Care Provider: None,None ED Provider: Koby Walter Home Meds and New Rx's Prescriptions: No Action acetaminophen [Mapap Extra Strength] 500 mg Tablet 500 mg PO Q4H PRN PRNQty: 0 RF: 0 sucralfate 1 gram Tablet 1 g PO AC & HS Qty: 120 RF: 0 pantoprazole 40 mg Tablet,Delayed Release (Dr/Ec) 40 mg PO DAILY@0730 Qty: 30 RF: 0 promethazine 25 mg Tablet 25 mg PO Q6H PRN PRNQty: 30 RF: 0 sertraline 50 mg Tablet 50 mg PO DAILY Qty: 30 RF: 0 chlordiazepoxide HCl 5 mg Capsule 10 mg PO TID Qty: 21 RF: 0 lorazepam 1 mg Tablet 1 mg PO TID PRN (Reason: Anxiety) Qty: 21 RF: 0 lorazepam 1 mg tablet 1 mg PO TID PRN (Reason: anxiety) Qty: 21 RF: 0 Discharge Instructions Instructions: Anxiety (ED) Additional Instructions: follow up as scheduled with your primary care provider try to limit alcohol intake to 1-2 drinks daily Medical Decision Making 38 yo female with hx of alcohol abuse, who is going to be going to alcohol treatment in the next week or so per pt and , who comes in feeling anxious and that she is going to have a seizure. She was seen earlier today for alcohol intoxicated and d/c'd home. She drank 4-5 beers and started to feel anxious and that she might have a seizure so came here. She is clinically not intoxicated with a stable gait and caox4 though does smell of alcohol. She does appear anxious. Given her recent lab work do not feel labs indicated. I advised I pediatric orthodontist't prescribe benzo's when she has been drinking so heavily today. I will give her a one time dose of ativan here and she will f/u with her pcp tomorrow as scheduled Differential Diagnosis anxiety, alcohol abuse HPI General Mode of arrival: ambulatory. Date/Time Provider Initiated Documentation: 12/27/18 21:42. Limitations to Documentation: no limitations. Information obtained by: patient and family. History of Present Illness 38 year old F presents to the emergency department with the chief complaint of feeling anxious, described as moderate, and it has been constant. No relieving factors improve symptom(s), No exacerbating factors reported . Patient did receive the following treatments prior to arrival, none Related Data Home Medications Medication Instructions Recorded Confirmed acetaminophen [Mapap Extra 500 mg PO Q4H PRN PRN #0 tab 12/05/18 12/13/18 Strength] pantoprazole 40 mg PO DAILY@0730 #30 tab 12/05/18 12/13/18 promethazine 25 mg PO Q6H PRN PRN #30 tab 12/05/18 12/13/18 sertraline 50 mg PO DAILY #30 tab 12/05/18 12/13/18 sucralfate 1 g PO AC & HS #120 tab 12/05/18 12/13/18 chlordiazepoxide HCl 10 mg PO TID #21 cap 12/15/18 lorazepam 1 mg PO TID PRN #21 tab 12/15/18 lorazepam 1 mg PO TID PRN #21 tab 12/15/18 Previous Rx's Medication Instructions Recorded acetaminophen [Mapap Extra 500 mg PO Q4H PRN PRN #0 tab 12/05/18 Strength] pantoprazole 40 mg PO DAILY@0730 #30 tab 12/05/18 promethazine 25 mg PO Q6H PRN PRN #30 tab 12/05/18 sertraline 50 mg PO DAILY #30 tab 12/05/18 sucralfate 1 g PO AC & HS #120 tab 12/05/18 chlordiazepoxide HCl 10 mg PO TID #21 cap 12/15/18 lorazepam 1 mg PO TID PRN #21 tab 12/15/18 lorazepam 1 mg PO TID PRN #21 tab 12/15/18 Allergies Allergy/AdvReac Type Severity Reaction Status Date / Time amoxicillin Allergy Unverified 12/13/18 12:47 codeine Allergy Unverified 12/13/18 12:47 General Stated Complaint: Nausea/Vomit/Diar JAMEEL: 3 Review of Systems Review of Systems All systems reviewed & are unremarkable except as noted in HPI and below Constitutional Denies chills, Denies fever(s) and Denies weakness Cardiovascular Denies chest pain and Denies dyspnea Respiratory Denies cough and Denies dyspnea Gastrointestinal Denies abdominal pain, Denies nausea and Denies vomiting Integumentary/Breasts Denies rash Neurologic Denies weakness [facility] Social History Smoking/Tobacco Use Status: Current every day Tobacco Type: cigarettes Tobacco: How many years used: 21 Alcohol Intake: current Alcohol Intake frequency: 3 or more drinks per day Alcohol type: beer Drug use: Occasionally Substance use type: marijuana Details: recorded h/o MJ and drug use but patient denies today Do you feel safe at home: Yes Do you feel safe in your relationship?: Yes Additional Social history: Patient is and has 2 children ages 13 and 14. Moved here from [place] approximately 2 years ago, now lives in [place]. She is a [id number] mother. Reports ongoing alcohol use. 30+-pack-year history of smoking. Exam Const General: anxious Orientation: alert HENMT Head: normal to inspection Ears: external ears normal General nose exam: external nose normal Mouth: moist mucous membranes Eyes General: appearance normal, both eyes and all related structures Neck Neck: normal visual inspection Resp Effort & Inspection: normal respiratory effort and able to speak in complete sentences Cardio Rate: regular rate Skin General skin exam: no rashes or lesions noted Neuro General: alert and oriented x3 Extrem General: normal to inspection Psych Mental Status: mental status grossly normal Course Vital Signs Temperature 36.6 C 12/27/18 21:32 Pulse 107 H 12/27/18 21:32 Respiratory Rate 18 12/27/18 21:32 Blood Pressure 138/81 12/27/18 21:32 Pulse Oximetry 98 12/27/18 21:32 Temperature 36.6 C 12/27/18 21:32 Temperature Source Tympanic 12/27/18 21:32 Pulse 107 H 12/27/18 21:32 Respiratory Rate 18 12/27/18 21:32 Blood Pressure 138/81 12/27/18 21:32 Pulse Oximetry 98 12/27/18 21:32 Pain Level 10 12/27/18 21:32
[2018-12-27 22:13] VITALS: BP 130/80; PULSE 90; RESP 17; TEMP 36.6; O2SAT 98
[2018-12-27] MEDS: LORazepam 1 MG TAB PO (22:13)
== END 2018-12-27 22:20 | disposition home or self-care (01) ==
PROVIDERS: Emergency Provider Emergency Medicine
DX: F41.9 Anxiety disorder, unspecified (principal); F10.20 Alcohol dependence, uncomplicated
CPT/HCPCS: 99283

== ENCOUNTER 2018-12-28 17:26 | Emergency (ER) | payer MEDICAID, SELFPAY ==
[2018-12-28] VITALS (11 sets, daily range): BP systolic 111–127; BP diastolic 67–86; PULSE 94–110; RESP 10–20; TEMP 37.2; O2SAT 98
--- NOTE | 2018-12-28 17:35 | ED.GENADUL_ITS ---
Discharge Plan Disposition Patient Disposition: HOME Condition: Stable Discharge Details Chief Complaint: Chest Pain Clinical Impression: Alcohol abuse, Anxiety Primary Care Provider: None,None ED Provider: Candida Menjivar Home Meds and New Rx's Prescriptions: Continued acetaminophen [Mapap Extra Strength] 500 mg Tablet 500 mg PO Q4H PRN PRNQty: 0 RF: 0 sucralfate 1 gram Tablet 1 g PO AC & HS Qty: 120 RF: 0 pantoprazole 40 mg Tablet,Delayed Release (Dr/Ec) 40 mg PO DAILY@0730 Qty: 30 RF: 0 promethazine 25 mg Tablet 25 mg PO Q6H PRN PRNQty: 30 RF: 0 sertraline 50 mg Tablet 50 mg PO DAILY Qty: 30 RF: 0 chlordiazepoxide HCl 5 mg Capsule 10 mg PO TID Qty: 21 RF: 0 lorazepam 1 mg Tablet 1 mg PO TID PRN (Reason: Anxiety) Qty: 21 RF: 0 lorazepam 1 mg tablet 1 mg PO TID PRN (Reason: anxiety) Qty: 21 RF: 0 Discharge Instructions Instructions: Anxiety (ED) Additional Instructions: Your labs were reassuring once again today. Encourage water intake. Cut back on alcohol. Please keep your upcoming plan for inpatient hospitalization for alcohol withdrawal. Take your medications as prescribed. If you develop recurrence of your symptoms, please contact recovery coaches. You may also call [facility] human services crisis line. Rachael will be covering the phone all weekend, feel free to call at any time at [phone]. If you develop fever/chills, increased pain, inability stay hydrated or other new/worsening symptoms please seek care urgently once again. Please contact primary care Monday to schedule appointment next week for reevaluation. Referrals: Soledad Irizarry [NURSE PRACTITIONER] - Medical Decision Making Patient is a 38-year-old female presents today with recurrence of her chest pain and epigastric pain. Patient reports is similar to previous episodes in the past. Patient's been here multiple times in the past 48 hours with the same complaint. Except for short of breath. Patient appears extremely anxious on exam. She does feel like she is having a panic attack. Patient is chronica lly on benzodiazepines she reports is for his seizure disorder. Patient does have history of alcohol withdrawal induced seizures. Patient has had 6 tall beers today. Appears clinically sober on exam. Patient does smell of alcohol. On exam, patient appears to be having most pain in the epigastric region. This is easily seen on exam. No peritoneal findings. Patient appears nontoxic. Vascular exam is normal. Plan obtain labs for evaluation. In particular, given the location of the pain, I am concerned for recurrence of her pancreatitis. Patient reports she had pancreatitis. She is to work with requiring stent placement. Patient reports that Zofran causes her to have migraines, stable for his nausea. Will give dose of Protonix, Phenergan GI cocktail. History is most concerning for alcoholic induced gastritis. Also considered viral etiology, pancreatitis, unlikely but possibly ACS. EKG was reviewed by Dr. Guzman showing sinus tachycardia with a rate of 104. No acute abnormalities noted. Labs revealing leukocytosis. Patient is not anemic. BUN is 3 which is typical for the patient. Troponin is within normal limits. Alk phos is elevated to 56 which is typical for the patient. Lipase is normal for the patient, without evidence of pancreatitis. Discussed these findings with the patient. Her alcohol is 364 which is lower than when she was evaluated yesterday. Again, patient appears clinically sober. Discussed the findings of the laboratory results with the patient. At this point, she is reporting that her symptoms are really anxiety driven and that her current living situation has her having frequent panic attacks which manifest themselves abdominal pain chest pain. States she has had this for several years. Denies any change in symptoms. Patient was evaluated here by a disaster recovery analyst. She has their contact information will call them this weekend if she has any recurrence of her anxiety. Patient was given a small dose of Ativan here to help with her anxious state at the patient's request. She is requesting benzodiazepines at home but I feel that this is unsafe given her level of alcohol consumption. Advised that she needs close follow-up with primary care. She was given strict return precautions. I did recheck to [facility] human [employer] and gave patient information for crisis line. I advised that she follow-up with them on Monday to discuss therapy options. She has scheduled hospitalization for her chronic alcohol consumption. All of her questions and concerns were addressed and she is in agreement this plan. Feeling improved after above interventions. HPI General Mode of arrival: EMS . Date/Time Provider Initiated Documentation: 12/28/18 17:33 . Limitations to Documentation: no limitations . Information obtained by: patient, EMS and RN notes reviewed . HPI Narrative: Patient is a 38 year old female with hx of ETOH withdrawal, hypokalemia, heptatitis, thrombocytopenia, active smoker, hyponatremia, pancreatic pseudocyst, pancreatitis, anxiety, withdrawal seizures. She presents today with c/c of recurrent abdominal and chest pain. She states she has had CP every day since 2013. Has discussed this with multiple health professionals per patient report. She indicates the upper abdomen as area of discomfort, primarily over the epigastric region. She reports that she has had good relief with PPI historically. She is also concerned that it feels like I am going to have a seizure. Has had seizure with withdrawal historically. Has had 6 tall beers thus far today. Vomited 100 times today. Reports that this is typical for her and that she has chronic N/V. She reports that she took ativan this AM for anxiety with only minimal relief. Feels that much of her symptoms are linked to the anxiety and panic attacks Feels that if she could get my anxiety under control my chest pain would stop. No SOB, no recent travel. Taking medications as prescribed. States that pain is worse after eating. Denies thoughts of self harm or harming others. States that she is lonely and this is the source of her anxiety and ETOH abuse. [facility] Related Data Home Medications Medication Instructions Recorded Confirmed acetaminophen [Mapap Extra 500 mg PO Q4H PRN PRN #0 tab 12/05/18 12/13/18 Strength] pantoprazole 40 mg PO DAILY@0730 #30 tab 12/05/18 12/13/18 promethazine 25 mg PO Q6H PRN PRN #30 tab 12/05/18 12/13/18 sertraline 50 mg PO DAILY #30 tab 12/05/18 12/13/18 sucralfate 1 g PO AC & HS #120 tab 12/05/18 12/13/18 chlordiazepoxide HCl 10 mg PO TID #21 cap 12/15/18 lorazepam 1 mg PO TID PRN #21 tab 12/15/18 lorazepam 1 mg PO TID PRN #21 tab 12/15/18 Previous Rx's Medication Instructions Recorded acetaminophen [Mapap Extra 500 mg PO Q4H PRN PRN #0 tab 12/05/18 Strength] pantoprazole 40 mg PO DAILY@0730 #30 tab 12/05/18 promethazine 25 mg PO Q6H PRN PRN #30 tab 12/05/18 sertraline 50 mg PO DAILY #30 tab 12/05/18 sucralfate 1 g PO AC & HS #120 tab 12/05/18 chlordiazepoxide HCl 10 mg PO TID #21 cap 12/15/18 lorazepam 1 mg PO TID PRN #21 tab 12/15/18 lorazepam 1 mg PO TID PRN #21 tab 12/15/18 Allergies Allergy/AdvReac Type Severity Reaction Status Date / Time amoxicillin Allergy Unverified 12/13/18 12:47 codeine Allergy Unverified 12/13/18 12:47 General Stated Complaint: Chest Pain JAMEEL: 3 Review of Systems Constitutional Reports as per HPI, Denies chills, Reports fatigue, Denies fever(s), Denies headache(s) and Reports poor appetite Eyes Denies change in vision ENT Denies dizziness and Denies headache(s) Cardiovascular Reports as per HPI, Reports chest pain (when anxious), Denies irregular heart rhythm, Denies lightheadedness, Denies radiating jaw, neck or arm pain, Denies dyspnea and Denies dyspnea on exertion Respiratory Reports as per HPI, Denies chest congestion, Denies cough, Denies pain on inspiration, Denies pain with cough, Denies dyspnea, Denies dyspnea on exertion and Denies wheezing Gastrointestinal Reports as per HPI, Reports abdominal pain, Denies bloating, Denies change in stool character, Denies diarrhea, Reports nausea, Reports vomiting and Denies hematemesis Musculoskeletal Reports as per HPI and Denies back pain Integumentary/Breasts Reports as per HPI and Denies rash Neurologic Reports as per HPI, Denies dizziness and Denies headache(s) Endocrine Reports fatigue Allergic/Immunologic Denies wheezing [facility] Medical History Acute pancreatitis (Acute) Alcohol abuse (Chronic) Anxiety (Chronic) Chronic pancreatitis (Chronic) DVT (deep venous thrombosis) (Inactive) Hemorrhagic pancreatitis (Resolved) History of DVT (deep vein thrombosis) (Chronic) Pancreatic pseudocyst (Chronic) Pancreatitis (Inactive) Withdrawal seizures (Suspected) Surgical History H/O chest tube placement (Inactive) H/O LEEP (Acute) Social History Smoking/Tobacco Use Status: Current every day Tobacco Type: cigarettes Tobacco: How many years used: 21 Alcohol Intake: current Alcohol Intake frequency: 3 or more drinks per day Alcohol type: beer Drug use: Occasionally Substance use type: marijuana Details: recorded h/o MJ and drug use but patient denies today Do you feel safe at home: Yes Do you feel safe in your relationship?: Yes Additional Social history: Patient is and has 2 children ages 13 and 14. Moved here from [place] approximately 2 years ago, now lives in [place]. She is a edkx-ht-olid mother. Reports ongoing alcohol use. 30+-pack-year history of smoking. Exam Const General: cooperative, healthy appearing, well developed, acute distress mild (patient appears anxious, breathing comfortably, nontoxic) and anxious Nutritional Appearance: average body habitus and well nourished Orientation: alert, awake and oriented x3 HENMT Head: normal to inspection Ears: hearing grossly normal bilaterally Mouth: moist mucous membranes Chest Chest: normal inspection of the chest, normal palpation of entire chest wall and no crepitus Resp Effort & Inspection: normal respiratory effort, able to speak in complete sentences and no respiratory distress Auscultation: clear to auscultation bilaterally, no rales, no rhonchi and no wheezes Cardio Rate: regular rate Rhythm: regular rhythm Heart Sounds: S1 normal and S2 normal GI Inspection: normal to inspection, no edema and non-distended Palpation: soft, no hepatosplenomegaly, not firm, no guarding, not rigid and tender in the epigastrum; with no rebound tenderness Auscultation: normal bowel sounds Back/Spine/Pelvis Back: no CVA tenderness Thoracic/Lumbar Spine: thoracic and lumbar spine normal to inspection Skin General skin exam: no rashes or lesions noted Trauma: no lacerations or abrasions Neuro General: alert, awake and oriented x3 Cognition: normal cognition Speech: speech normal Gait: normal gait Extrem General: normal to inspection, normal capillary refill, no pedal edema, no calf tenderness and normal gait Psych Appearance: grossly normal and well kempt Mental Status: mental status grossly normal Speech and Movement: speech and movement normal Mood: anxious mood Affect: labile affect and anxious affect Attitude: guarded Course Vital Signs Temperature 37.2 C 12/28/18 17:26 Pulse 99 H 12/28/18 17:26 Respiratory Rate 16 12/28/18 17:26 Blood Pressure 111/67 12/28/18 17:26 Pulse Oximetry 98 12/28/18 17:26 Temperature 37.2 C 12/28/18 17:26 Temperature Source Skin 12/28/18 17:26 Pulse 99 H 12/28/18 17:26 Respiratory Rate 16 12/28/18 17:26 Respiratory Effort Non-Labored 12/28/18 17:26 Blood Pressure 111/67 12/28/18 17:26 Blood Pressure Position Supine 12/28/18 17:26 Pulse Oximetry 98 12/28/18 17:26 Oxygen Delivery Method Room Air 12/28/18 17:26 Oxygen Flow Rate 0 12/28/18 17:26
[2018-12-28 17:48] LABS: Abs Immature Grans 0.07 k/cumm (0.0-0.09); Absolute Basophil Count 0.03 k/cumm (0.0-0.2); Absolute Eosinophil Count 0.03 k/cumm (0.0-0.7); Absolute Lymphocyte Count 2.35 k/cumm (1.2-3.4); Absolute Monocyte Count 0.39 k/cumm (0.11-0.7); Basophils % 0.4; Eosinophils % 0.4; HCT 45.2 % (36.0-46.0); HGB 15.8 g/dL (12.0-15.5); Immature Grans % 0.8; Lymphocytes % 28.4; Mean Corpuscular Hemoglobin 31.4 pg (27.0-33.0); Mean Corpuscular Volume 89.9 fL (80-95); Mean Platelet Volume 8.8 fL (8.0-11.0); Monocytes % 4.7; Neutrophils % 65.3; Platelet Count 479 x1000/uL (130-400); RBC 5.03 m/cumm (4.00-5.20); RBC Distribution Width 15.1 % (11.7-14.6); White Blood Cell Count 8.27 k/cumm (4.4-10.8)
[2018-12-28 18:01] LABS: PTT Activated 24.7 sec (21.0-31.4); Prothrombin Time 9.6 sec (9.3-11.0)
[2018-12-28 18:07] LABS: ALT 19 U/L (12-78); AST 19 U/L (15-37); Albumin 3.5 g/dL (3.4-5.0); Alkaline Phosphatase 256 U/L (46-116); Anion Gap 12.7 mmol/L (3-11); BUN 3 mg/dL (7-18); Bilirubin, Total 0.2 mg/dL (0.2-1.0); CO2 28.3 mmol/L (21.0-32.0); Calcium 9.2 mg/dL (8.5-10.1); Chloride 102 mmol/L (98-107); ETHANOL BLOOD 364.1 mg/dL (<3); Glucose 113 mg/dL (70-100); Potassium 3.9 mmol/L (3.5-5.1); Sodium 143 mmol/L (136-145); Total Protein 8.5 g/dL (6.4-8.2); Troponin I < 0.05 ng/mL (0.00-0.06)
[2018-12-28 18:14] LABS: Lipase 35 U/L (73-393)
[2018-12-28] MEDS: Pantoprazole 40 MG VIAL IVP (18:30)
[2018-12-28] MEDS: LORazepam 2 MG/ML VIAL 0.5 MG IVP (18:55)
== END 2018-12-28 20:02 | disposition home or self-care (01) ==
PROVIDERS: Emergency Provider Physician Assistant
DX: F10.10 Alcohol abuse, uncomplicated (principal); F41.9 Anxiety disorder, unspecified; R00.0 Tachycardia, unspecified; D72.9 Disorder of white blood cells, unspecified
CPT/HCPCS: 36415; 80053; 83690; 93005; 96361; 96365; 96375; 99284; 80320; 83735; 84484; 85025; 85610; 85730; 93010; J2060

== ENCOUNTER 2018-12-31 07:46 | Emergency (ER) | payer MEDICAID, SELFPAY ==
--- NOTE | 2018-12-31 07:45 | ED.GENADUL_ITS ---
Discharge Plan Disposition Patient Disposition: HOME Condition: Stable Discharge Details Chief Complaint: Anxiety Clinical Impression: Acute epigastric pain, Chest pain, Hypomagnesemia Primary Care Provider: Soledad Irizarry ED Provider: Shweta Guzman Home Meds and New Rx's Prescriptions: Continued acetaminophen [Mapap Extra Strength] 500 mg Tablet 500 mg PO Q4H PRN PRNQty: 0 RF: 0 sucralfate 1 gram Tablet 1 g PO AC & HS Qty: 120 RF: 0 pantoprazole 40 mg Tablet,Delayed Release (Dr/Ec) 40 mg PO DAILY@0730 Qty: 30 RF: 0 promethazine 25 mg Tablet 25 mg PO Q6H PRN PRNQty: 30 RF: 0 sertraline 50 mg Tablet 50 mg PO DAILY Qty: 30 RF: 0 Discontinued lorazepam 1 mg Tablet 1 mg PO TID PRN (Reason: Anxiety) Qty: 21 RF: 0 lorazepam 1 mg tablet 1 mg PO TID PRN (Reason: anxiety) Qty: 21 RF: 0 No Action lorazepam [Ativan] 1 mg Tablet 1 - 2 mg PO QID PRN PRN (Reason: Anxiety) RF: 0 Discharge Instructions Instructions: Chest Pain (ED), Gastritis (ED), Alcohol Withdrawal (ED), Abdominal Pain (ED), Hypomagnesemia (ED), Anxiety (ED), Alcohol Dependence (ED) Additional Instructions: Please return immediately to the emergency department if you develop any new or worsening symptoms or if you become otherwise concerned. It is extremely important that you call as soon as possible to make an appointment to be seen by your primary care doctor in follow-up for this visit as we discussed. Referrals: Soledad Irizarry [Primary Care Provider] - Discharge Data Discharge Date/Time-TO BE ENTERED AT DEPARTURE: 12/31/18 11:13 Medical Decision Making Zahraa Robin is a 38-year-old woman with history of alcohol use disorder with history of alcohol withdrawal seizures, anxiety, chronic pancreatitis with recent stent placement for necrotic pseudocyst, DVT in the past who presented to the emergency department with complaint of anxiety related to concern that she was going to have a withdrawal seizure, also ongoing epigastric/chest pain over the past few days. On exam patient appears somewhat chronically ill but acutely nontoxic. Mucous membranes are dry. Clinically sober but smells strongly of alcohol. Diffuse tenderness to the abdomen worse in the epigastric region without peritoneal signs. Concern for acute pancreatitis, dehydration, metabolic/lyte derangement, gastritis versus other. Doubt ACS, PE. Given ongoing unchanged symptoms over the past few days that also seem to have some chronic component over the past few months, lower concern for acute process, particularly acute emergent intra-abdominal process requiring CT imaging for diagnosis. Upon record review, Pt has had mutliple CT abd scans since 2016, with 3 CT abdomen performed in November 2018. I do have some concern that recent visits may be related to her running out of benzodiazepine prescription. Per patient, her PCP will no longer prescribe benzodiazepines to her. Patient does have inpatient alcohol treatment scheduled for 01/07. Exam/history is not consistent with sepsis, acute aortic etiology, meningitis. Plan for EKG, screening labs, IV fluid hydration, telemetry, Protonix, GI cocktail, p.o. Ativan. Will monitor and reassess. Given my low clinical concern and also significant radiation to the abdomen from multiple CT scans, will hold CT imaging for now. Patient states that her PCP will not see her anymore, patient placed on list for care management to establish alternative PCP. Patient reports that after meds her symptoms have completely improved. She denies having any pain. Patient states that she feels back to normal and would like to leave at this time. I had a lengthy discussion with the patient regarding testing that had not yet been performed, including chest x-ray, repeat troponin/EKG, repeat anion gap, continued IV fluid hydration, further reassessment. I stated the risks of leaving without undergoing further evaluation and treatment included and permanent disability. Patient with decision-making capacity, clinically sober, verbalized understanding the risks and continues to refuse further evaluation and treatment. No alcohol withdrawal. I did discuss with patient her elevated d-dimer, that she has not had CT testing in the past few days for her continued complaint, and that these tests would need to be performed for worsening/continued symptoms. I had a lengthy discussion with the patient regarding return to emergency department precautions, home care, importance of outpatient follow-up with PCP, and that she may return to the emergency department at any time should she change her mind about leaving AGAINST MEDICAL ADVICE. Patient verbalized understanding and was amenable. Patient was discharged home with clear plan for outpatient follow-up. All questions were answered. Disposition: AMA Clinical Impression: anxiety, chest pain, abdominal pain Medical Records Medical records reviewed: Yes I reviewed the patient's medical records. Lab Data Lab results reviewed: Yes I reviewed the patient's lab results. ECG Data Attestation: I personally reviewed and interpreted this ECG (s) as follows: Interpretation: EKG shows sinus tachycardia 103, normal axis, no STEMI, nondiagnostic EKG HPI General Mode of arrival: EMS . Date/Time Provider Initiated Documentation: 12/31/18 08:02 . Limitations to Documentation: no limitations . Information obtained by: patient, RN notes reviewed and old records reviewed . HPI Narrative: Zahraa Robin is a 38 y/o woman with history of pancreatitis status post pancreatic stent placement for pancreatic pseudocyst 12/05, DVT 2013, alcohol use disorder with history of alcohol withdrawal seizures, anxiety presenting to the emergency department with epigastric/chest pain. Patient has been seen here 3 times previously for similar complaint beginning 12/27/2018; this is now the fourth visit for same complaint since that date. In addition to epigastric/chest pain, from record review it appears that patient has also c omplained on these recent emergency department visits of anxiety, and feeling as if she is going to have an alcohol withdrawal seizure. Patient notes that feeling that she was going to have a seizure is what prompted her to come to the emergency department today. Patient states that she had previously been taking Ativan 1 mg 3-4 times daily, but ran out of Ativan approximately 4 days ago. Patient reports that she typically drinks at least a 12 pack of beer per day. She states that yesterday she drank for 24 cans of beer, and had one 24 ounce can of beer this morning at 6:30 AM. Patient reports that she has been drinking beer in order to prevent withdrawal seizures that she has had in the past. Patient reports that epigastric/chest pain is worse with eating, improves with nothing. Nonexertional, nonpleuritic. Patient reports the pain is the same that she has been having over the past few days and for which she has been seen in the ED, and she notes that she has been having similar pain intermittently for years. No new or atypical features. Patient reports that she vomits usually every day, which is typical for her, and she has chronic diarrhea that is ongoing. She denies any other pain, fevers, cough, shortness of breath, numbness/weakness the extremities. Related Data Home Medications Medication Instructions Recorded Confirmed acetaminophen [Mapap Extra 500 mg PO Q4H PRN PRN #0 tab 12/05/18 01/01/19 Strength] pantoprazole 40 mg PO DAILY@0730 #30 tab 12/05/18 01/01/19 promethazine 25 mg PO Q6H PRN PRN #30 tab 12/05/18 01/01/19 sertraline 50 mg PO DAILY #30 tab 12/05/18 01/01/19 sucralfate 1 g PO AC & HS #120 tab 12/05/18 01/01/19 lorazepam [Ativan] 1 - 2 mg PO QID PRN PRN 01/01/19 01/01/19 Previous Rx's Medication Instructions Recorded acetaminophen [Mapap Extra 500 mg PO Q4H PRN PRN #0 tab 12/05/18 Strength] pantoprazole 40 mg PO DAILY@0730 #30 tab 12/05/18 promethazine 25 mg PO Q6H PRN PRN #30 tab 12/05/18 sertraline 50 mg PO DAILY #30 tab 12/05/18 sucralfate 1 g PO AC & HS #120 tab 12/05/18 Allergies Allergy/AdvReac Type Severity Reaction Status Date / Time amoxicillin Allergy Unverified 12/31/18 22:14 codeine Allergy Unverified 12/31/18 22:14 General JAMEEL: 3 Review of Systems Review of Systems Constitutional: denies fevers Eyes: denies eye pain ENT: denies facial pain, dental pain, sore throat Cardiovascular: denies edema, reports chest pain Respiratory: denies SOB, cough GI: reports abdominal pain, vomiting, diarrhea : denies flank pain MSK: denies back pain, neck pain, arthralgias, myalgias Skin: denies rash Neuro: denies headaches, numbness, weakness [facility] Medical History Acute pancreatitis (Acute) Alcohol abuse (Chronic) Anxiety (Chronic) Chronic pancreatitis (Chronic) DVT (deep venous thrombosis) (Inactive) Hemorrhagic pancreatitis (Resolved) History of DVT (deep vein thrombosis) (Chronic) Pancreatic pseudocyst (Chronic) Pancreatitis (Inactive) Withdrawal seizures (Suspected) Surgical History H/O chest tube placement (Inactive) H/O LEEP (Acute) Social History Smoking/Tobacco Use Status: Current every day Tobacco Type: cigarettes Tobacco: How many years used: 21 Alcohol Intake: current Alcohol Intake frequency: 3 or more drinks per day Alcohol type: beer Drug use: Occasionally Substance use type: marijuana Details: recorded h/o MJ and drug use but patient denies today Do you feel safe at home: Yes Do you feel safe in your relationship?: Yes Additional Social history: Patient is and has 2 children ages 13 and 14. Moved here from [place] approximately 2 years ago, now lives in [place]. 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 Reports ongoing alcohol use. 30+-pack-year history of smoking. Exam Narrative Exam Narrative: Constitutional: somehwat chronically ill but acutely aci-urdac-gluvbppgn, pleasant, conversing normally HENT: head atraumatic/normocephalic/normal inspection, mucous membranes dry Eyes: conjunctiva normal, sclera normal, pupils 3mm b/l Neck: no stridor, normal ROM, trachea midline Chest: normal inspection Resp: normal work of breathing, LCTAB Cardio: tachycardic rate, normal rhythm, no murmur appreciated GI: abdomen soft, non-distended, diffusely tender but worse in the epigastrium, no rebound or guarding, neg murphys, neg McBpt TTP Back: normal inspection, no rash Skin: warm, dry, normal color, no rash Neuro: alert, not altered, grossly non-focal, normal tone Ext: no edema, no posterior calf TTP Psych: normal mood, normal affect, normal behavior
[2018-12-31 07:47] VITALS: BP 106/87; PULSE 104; RESP 16; O2SAT 99
--- NOTE | 2018-12-31 07:56 | NUR.NOTE ---
pt as per triage placed on cardiac monitor technician ecg performed Nursing Note:
[2018-12-31] MEDS: Normal Saline 1,000 ML 1000 ML IV (08:35)
[2018-12-31] MEDS: LORazepam 1 MG TAB PO (08:39)
[2018-12-31] MEDS: Pantoprazole 40 MG TABCR PO (08:39)
[2018-12-31 08:40] LABS: Abs Immature Grans 0.02 k/cumm (0.0-0.09); Absolute Basophil Count 0.02 k/cumm (0.0-0.2); Absolute Eosinophil Count 0.04 k/cumm (0.0-0.7); Absolute Lymphocyte Count 1.55 k/cumm (1.2-3.4); Absolute Monocyte Count 0.59 k/cumm (0.11-0.7); Absolute Neutrophil Count 7.73 k/cumm (1.2-6.7); Basophils % 0.2; Eosinophils % 0.4; HCT 42.9 % (36.0-46.0); HGB 14.5 g/dL (12.0-15.5); Immature Grans % 0.2; Lymphocytes % 15.6; Mean Corp. HGB Concentration 33.8 g/dL (32.0-36.0); Mean Corpuscular Hemoglobin 30.5 pg (27.0-33.0); Mean Corpuscular Volume 90.1 fL (80-95); Mean Platelet Volume 8.8 fL (8.0-11.0); Monocytes % 5.9; Neutrophils % 77.7; Platelet Count 421 x1000/uL (130-400); RBC 4.76 m/cumm (4.00-5.20); White Blood Cell Count 9.95 k/cumm (4.4-10.8)
[2018-12-31 08:55] LABS: Bilirubin Negative (Negative); Blood Trace-intact (Negative); Clarity Clear (Clear); Glucose Negative (Negative); Ketones Negative (Negative); Leukocyte Esterase Negative (Negative); Nitrite Negative (Negative); Specific Gravity <= 1.005 (1.005-1.025); Urobilinogen 0.2 EU/dL (Up TO 0.2)
[2018-12-31 09:04] LABS: Bacteria Negative HPF (Negative); C & S Indicated? No; Casts Negative LPF (Negative); Crystals Negative HPF (Negative); Epithelial Cells Few HPF (Negative); Mucus Negative (Negative); WBC 0-2 HPF (0-5)
[2018-12-31 09:11] LABS: ALT 17 U/L (12-78); AST 25 U/L (15-37); Albumin 3.4 g/dL (3.4-5.0); Alkaline Phosphatase 236 U/L (46-116); Anion Gap 14.1 mmol/L (3-11); BUN 3 mg/dL (7-18); Bilirubin, Total 0.2 mg/dL (0.2-1.0); CO2 25.9 mmol/L (21.0-32.0); CREATININE 0.49 mg/dL (0.55-1.02); Chloride 99 mmol/L (98-107); D-Dimer 902 ng/mlFEU (<500); Glucose 156 mg/dL (70-100); Lipase 35 U/L (73-393); Magnesium 1.7 mg/dL (1.8-2.4); Potassium 3.5 mmol/L (3.5-5.1); Sodium 139 mmol/L (136-145); TSH (W/Ref FT4) 0.38 uIU/mL (0.358-3.74); Total Protein 8.1 g/dL (6.4-8.2)
[2018-12-31 09:12] LABS: ETHANOL BLOOD 294.2 mg/dL (<3); Troponin I < 0.05 ng/mL (0.00-0.06)
[2018-12-31 09:17] LABS: *AMPHETAMINES SCREEN URINE Negative (Negative); *BARBITURATES SCREEN URINE Negative (Negative); *BENZODIAZEPINES SCREEN URINE Negative (Negative); Cannabinoids THC Negative (Negative); Cocaine Screen,Urine Negative (Negative); OPIATES URINE SCREEN Negative (Negative)
[2018-12-31 09:19] LABS: Tricyclic Antidepressants Negative (Negative)
[2018-12-31] MEDS: Metoclopramide 10 MG/2 ML VIAL IVP (09:20)
[2018-12-31 09:31] LABS: METHADONE URINE SCREEN Negative (Negative)
[2018-12-31] MEDS: Magnesium Oxide 400 MG TAB PO (11:10)
[2018-12-31 11:13] VITALS: BP 116/74; PULSE 100; RESP 18; O2SAT 98
== END 2018-12-31 11:13 | disposition home or self-care (01) ==
PROVIDERS: Emergency Provider Student in an Organized Health Care Education/Training Program; PCP Nurse Practitioner Family
DX: R10.13 Epigastric pain (principal); R07.9 Chest pain, unspecified; E83.42 Hypomagnesemia; F10.280 Alcohol dependence with alcohol-induced anxiety disorder; Y90.8 Blood alcohol level of 240 mg/100 ml or more; R79.1 Abnormal coagulation profile; Z53.29 Procedure and treatment not carried out because of patient's decision for other reasons; F41.9 Anxiety disorder, unspecified
CPT/HCPCS: 36415; 71275; 80053; 80307; 83690; 93005; 96361; 96374; 99283; 99284; 99285; 80320; 81003; 81015; 83735; 84443; 84484; 85025; 85379; 93010; J0780; J2765; J3490

== ENCOUNTER 2018-12-31 16:00 | Emergency (ER) | payer MEDICAID, SELFPAY ==
[2018-12-31 15:58] VITALS: TEMP 36.6
[2018-12-31 16:04] VITALS: BP 143/87; PULSE 98; RESP 16
[2018-12-31 16:10] VITALS: RESP 18
--- NOTE | 2018-12-31 17:05 | W.ED.GENAD ---
Discharge Plan Disposition Patient Disposition: AGAINST MEDICAL ADVICE Discharge Details Chief Complaint: Anxiety Clinical Impression: Chest pain, Acute alcoholism, Malingering, Drug-seeking behavior Primary Care Provider: Soledad Irizarry ED Provider: Brayan Stokes Home Meds and New Rx's Prescriptions: Continued acetaminophen [Mapap Extra Strength] 500 mg Tablet 500 mg PO Q4H PRN PRNQty: 0 RF: 0 sucralfate 1 gram Tablet 1 g PO AC & HS Qty: 120 RF: 0 pantoprazole 40 mg Tablet,Delayed Release (Dr/Ec) 40 mg PO DAILY@0730 Qty: 30 RF: 0 promethazine 25 mg Tablet 25 mg PO Q6H PRN PRNQty: 30 RF: 0 sertraline 50 mg Tablet 50 mg PO DAILY Qty: 30 RF: 0 Discontinued chlordiazepoxide HCl 5 mg Capsule 10 mg PO TID Qty: 21 RF: 0 Discharge Instructions Instructions: Chest Pain (ED), Alcohol Intoxication (ED) Additional Instructions: It is important that you do not take benzodiazepines ie. ativan, librium, as you are drinking daily and this combination can cause you to stop breathing and . Additionally, we have recommended you stay for further evaluation to rule out life threatening causes of your chest pain such as pulmonary embolism. We welcome you to return for re-evaluation of this complaint should you change your mind. I am suspicious you came today to obtain additional benzodiazepines and finding out you were not getting any may have led to your decision to leave. Please keep in mind that we will continue to treat you but we will be unable to prescribe any benzodiazepines given your current alcoholism. Medical Decision Making CTA ordered for evaluation of elevated d-dimer and chest pain complaint as well as tachycardia. I informed Laina I was happy to evaluate her but would not be able to prescribe her any benzos that she was requesting. Shortly after this, she told me that her children texted her and that she had to go for an emergency at home. I asked to see her phone, she then told me they did not text but they had called her and said this. I requested patient stay for ongoing evaluation but she did not want to stay, stating she had to go for a family emergency. I informed her that her symptoms may represent a life-threatening or fatal illness. She voiced understanding. Her signed AMA paperwork and she was discharged to home, welcomed to return if she changes her mind HPI Laina presents to the emergency department for evaluation of chest pain. She was seen earlier today for the same complaint. She smells of alcohol and admits to drinking 2 24 ounce alcoholic beverages prior to arrival. She states she drinks heavily daily and has done so for many years. She is here requesting Ativan, states she was given this by the ICU on discharge in the past. Currently describes substernal chest pain, 5 out of 10. During evaluation earlier today, labs were unremarkable aside from an elevated d-dimer of 900. Decision was made to hold off on CT imaging given her multitude of CAT scans in the past. She currently denies shortness of breath but does admit to chest pain which is constant. She denies any injuries. She denies any additional symptoms. General Date/Time Provider Initiated Documentation: 12/31/18 16:05. Related Data Home Medications Medication Instructions Recorded Confirmed acetaminophen [Mapap Extra 500 mg PO Q4H PRN PRN #0 tab 12/05/18 12/31/18 Strength] pantoprazole 40 mg PO DAILY@0730 #30 tab 12/05/18 12/31/18 promethazine 25 mg PO Q6H PRN PRN #30 tab 12/05/18 12/31/18 sertraline 50 mg PO DAILY #30 tab 12/05/18 12/31/18 sucralfate 1 g PO AC & HS #120 tab 12/05/18 12/31/18 Previous Rx's Medication Instructions Recorded acetaminophen [Mapap Extra 500 mg PO Q4H PRN PRN #0 tab 12/05/18 Strength] pantoprazole 40 mg PO DAILY@0730 #30 tab 12/05/18 promethazine 25 mg PO Q6H PRN PRN #30 tab 12/05/18 sertraline 50 mg PO DAILY #30 tab 12/05/18 sucralfate 1 g PO AC & HS #120 tab 12/05/18 Allergies Allergy/AdvReac Type Severity Reaction Status Date / Time amoxicillin Allergy Unverified 12/31/18 22:14 codeine Allergy Unverified 12/31/18 22:14 General Stated Complaint: Anxiety JAMEEL: 3 Review of Systems Constitutional Denies chills, Denies fatigue, Denies fever(s) and Denies lethargy Eyes Denies loss of vision ENT Denies nasal congestion and Denies sore throat Cardiovascular Denies dyspnea Respiratory Denies cough and Denies dyspnea Gastrointestinal Denies abdominal pain, Denies nausea and Denies vomiting Musculoskeletal Denies back pain, Denies muscle weakness and Denies numbness Integumentary/Breasts Denies rash Neurologic Denies focal weakness, Denies loss of vision and Denies numbness Endocrine Denies fatigue Hematologic/Lymphatic Denies easy bruising [facility] Medical History Acute pancreatitis (Acute) Alcohol abuse (Chronic) Anxiety (Chronic) Chronic pancreatitis (Chronic) DVT (deep venous thrombosis) (Inactive) Hemorrhagic pancreatitis (Resolved) History of DVT (deep vein thrombosis) (Chronic) Pancreatic pseudocyst (Chronic) Pancreatitis (Inactive) Withdrawal seizures (Suspected) Social History Smoking/Tobacco Use Status: Current every day Tobacco Type: cigarettes Tobacco: How many years used: 21 Alcohol Intake: current Alcohol Intake frequency: 3 or more drinks per day Alcohol type: beer Drug use: Occasionally Substance use type: marijuana Details: recorded h/o MJ and drug use but patient denies today Do you feel safe at home: Yes Do you feel safe in your relationship?: Yes Additional Social history: Patient is and has 2 children ages 13 and 14. Moved here from [place] approximately 2 years ago, now lives in [place]. 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 Reports ongoing alcohol use. 30+-pack-year history of smoking. Exam Const General: cooperative, healthy appearing and no acute distress HENMA Head: normal to inspection Ears: hearing grossly normal bilaterally Eyes EOM: EOM intact bilaterally Neck Neck: normal visual inspection Resp Effort & Inspection: normal respiratory effort Auscultation: clear to auscultation bilaterally Cardio Rate: regular rate Rhythm: regular rhythm Heart Sounds: no murmurs GI Palpation: soft and nontender Skin General skin exam: no rashes or lesions noted Neuro General: alert, awake and oriented x3 Speech: speech normal Gait: normal gait Extrem General: normal to inspection Course Vital Signs Temperature 36.6 C 12/31/18 15:58 Temperature 36.6 C 12/31/18 15:58 Temperature Source Skin 12/31/18 15:58 Pulse 98 H 12/31/18 16:04 Respiratory Rate 18 12/31/18 16:10 Respiratory Effort Non-Labored 12/31/18 16:10 Blood Pressure 143/87 H 12/31/18 16:04
[2018-12-31 17:44] LABS: Abs Immature Grans 0.03 k/cumm (0.0-0.09); Absolute Basophil Count 0.01 k/cumm (0.0-0.2); Absolute Eosinophil Count 0.01 k/cumm (0.0-0.7); Absolute Lymphocyte Count 1.77 k/cumm (1.2-3.4); Absolute Monocyte Count 0.43 k/cumm (0.11-0.7); Absolute Neutrophil Count 5.52 k/cumm (1.2-6.7); Basophils % 0.1; Eosinophils % 0.1; HCT 40.9 % (36.0-46.0); Immature Grans % 0.4; Lymphocytes % 22.8; Mean Corp. HGB Concentration 34.2 g/dL (32.0-36.0); Mean Corpuscular Hemoglobin 30.9 pg (27.0-33.0); Mean Corpuscular Volume 90.3 fL (80-95); Mean Platelet Volume 9.1 fL (8.0-11.0); Monocytes % 5.5; Neutrophils % 71.1; Platelet Count 380 x1000/uL (130-400); RBC 4.53 m/cumm (4.00-5.20); RBC Distribution Width 14.9 % (11.7-14.6); White Blood Cell Count 7.77 k/cumm (4.4-10.8)
[2018-12-31 18:08] LABS: ALT 15 U/L (12-78); AST 21 U/L (15-37); Albumin 3.4 g/dL (3.4-5.0); Alkaline Phosphatase 238 U/L (46-116); Anion Gap 10.9 mmol/L (3-11); BUN 3 mg/dL (7-18); Bilirubin, Total 0.3 mg/dL (0.2-1.0); CO2 27.1 mmol/L (21.0-32.0); CREATININE 0.46 mg/dL (0.55-1.02); Chloride 105 mmol/L (98-107); Glucose 112 mg/dL (70-100); Lipase 35 U/L (73-393); Sodium 143 mmol/L (136-145); Total Protein 7.9 g/dL (6.4-8.2)
[2018-12-31 18:10] LABS: Troponin I < 0.05 ng/mL (0.00-0.06)
--- NOTE | 2018-12-31 18:31 | NUR.NOTE ---
pt stated that she wants to leave RAINE HERNANDEZ notified Nursing Note:
[2018-12-31 19:00] VITALS: BP 139/89; PULSE 120; RESP 19; TEMP 37.2; O2SAT 97
== END 2018-12-31 19:07 | disposition left against medical advice (07) ==
PROVIDERS: Emergency Provider Physician Assistant Medical; PCP Nurse Practitioner Family
DX: R07.9 Chest pain, unspecified (principal); F10.20 Alcohol dependence, uncomplicated; R00.0 Tachycardia, unspecified; R79.89 Other specified abnormal findings of blood chemistry; Z76.5 Malingerer [conscious simulation]; F41.9 Anxiety disorder, unspecified
CPT/HCPCS: 36415; 80053; 83690; 99283; 83735; 84484; 85025

== ENCOUNTER 2018-12-31 21:44 | Emergency (ER) | payer MEDICAID, SELFPAY ==
--- NOTE | 2018-12-31 22:06 | NUR.NOTE ---
Nursing Note: pt states that she has returned because she regrets her choice to AMA and states she now has increased pain under he left boob pt states the pain is similar to before however has moved from her abdomen to her damn left boob
[2018-12-31 22:09] VITALS: BP 147/87; PULSE 105; RESP 17; TEMP 37; O2SAT 97
[2018-12-31 22:14] VITALS: RESP 16
[2018-12-31 22:15] VITALS: BP 145/81; PULSE 99; RESP 16; O2SAT 97
--- NOTE | 2018-12-31 22:21 | NUR.NOTE ---
Nursing Note: pt states that she has returned because she regrets her choice to AMA and states she now has increased pain under he left boob pt states the pain is similar to before however has moved from her abdomen to her damn left boob pt has a history of panic attacks. pt states that she is currently having a panic attack and that you didn't give me no Ativan before and if you did i wouldn't be here right now [ End ]
--- NOTE | 2018-12-31 23:04 | DI.CT_ITS ---
SYMPTOM/DIAGNOSIS: CHEST PAIN, ELEVATED D DIMER PE CHEST CT: CT angiography was performed with multi slice acquisition and multi planar and 3D reconstruction. Comparison exam is 11/27/18 and 12/13/18. There is no evidence of a pulmonary embolus. The thoracic aorta is of normal caliber. No aneurysm or dissection is seen. Heart size is within normal limits. No significant pericardial effusion is seen. No evidence of right ventricular dysfunction is present. No evidence of thoracic adenopathy, pleural effusion or pneumothorax is identified. The lungs are clear. The tracheobronchial tree is unremarkable. In the upper abdomen, there are findings of diffuse decreased attenuation of the liver consistent with fatty infiltration. There is again seen a pancreatic stent in place. IMPRESSION: No evidence of an acute pulmonary embolus, thoracic aortic dissection or aneurysm.
--- NOTE | 2018-12-31 23:15 | ED.GENADUL_ITS ---
Discharge Plan Disposition Patient Disposition: HOME Condition: Stable Discharge Details Chief Complaint: Chest Pain Clinical Impression: Chest pain Primary Care Provider: Soledad Irizarry ED Provider: Koby Walter Home Meds and New Rx's Prescriptions: No Action acetaminophen [Mapap Extra Strength] 500 mg Tablet 500 mg PO Q4H PRN PRNQty: 0 RF: 0 sucralfate 1 gram Tablet 1 g PO AC & HS Qty: 120 RF: 0 pantoprazole 40 mg Tablet,Delayed Release (Dr/Ec) 40 mg PO DAILY@0730 Qty: 30 RF: 0 promethazine 25 mg Tablet 25 mg PO Q6H PRN PRNQty: 30 RF: 0 sertraline 50 mg Tablet 50 mg PO DAILY Qty: 30 RF: 0 Discharge Instructions Instructions: Chest Pain (ED) Additional Instructions: follow up with your primary care provider's office in 1- 2 weeks if you have high fevers, persistent vomit or feel you are having difficulty breathing or severe worsening of pain return to the emergency department Medical Decision Making 38 yo female with hx of alcohol abuse, anxiety, who comes in with chest pain. She was seen earlier this morning with abdominal complaints with negative workup though was intoxicated. She came back this evening with chest pain and had lab work showing normal troponin and d dimer in the 900's and again had been drinking alcohol. She decided to leave ama prior to CTA for PE and she states it is because she did not get ativan and per the chart the provider wasn't comfortable giving her benzos with alcohol on board. She decided she should return tonight for cta for continued left sided pleuritic pain and pain that is increased with palpation to the left chest. No rashes on exam or fevers. Her heart score is 2, will send second troponin and if negative feel she can f/u with her pcp given negative troponin earlier and ecg tonight same as it was earlier. Will obtain CTA to eval for PE. No tearing back pain so doubt dissection. Pt did request benzos on my exam but I do not feel comfortable with the amount of alcohol she consumes giving her benzos which she understands. She is clinically sober on my exam. pt remains stable, troponin negative and cta negative as well. I feel she is stable for d/c. I am going to place her on the care management follow up list to see if there are any outpatient services that might help her given her frequent ED visits and she also states she needs a new pcp as her provider at [facility] told her she couldn't see her anymore. Return precautions given Differential Diagnosis chest wall pain, pe, ptx, pna Medical Records Medical records reviewed: Yes I reviewed the patient's medical records. Imaging Data Radiologic Study: Attestation: I personally reviewed and interpreted this imaging study as follows: Imaging: CT Scan Radiologist's impression: no acute findings Lab Data Lab results reviewed: Yes I reviewed the patient's lab results. ECG Data Attestation: I personally reviewed and interpreted this ECG (s) as follows: Prior ECG tracings: available for review Interpretation: sinus rhythm, rate of 94, pr 162, no acute st t wave ischemic findings HPI General Date/Time Provider Initiated Documentation: 12/31/18 22:15 . Limitations to Documentation: no limitations . Information obtained by: patient . History of Present Illness 38 year old F presents to the emergency department with the chief complaint of left sided chest pain, described as moderate, Quality is described as stabbing and aching, and is localized to the chest. Patient started experiencing this day(s) (1) and it has been constant. No relieving factors improve symptom(s), Other factors that worsen symptoms (deep breaths and palpation) . Patient did receive the following treatments prior to arrival, none Related Data Home Medications Medication Instructions Recorded Confirmed acetaminophen [Mapap Extra 500 mg PO Q4H PRN PRN #0 tab 12/05/18 12/31/18 Strength] pantoprazole 40 mg PO DAILY@0730 #30 tab 12/05/18 12/31/18 promethazine 25 mg PO Q6H PRN PRN #30 tab 12/05/18 12/31/18 sertraline 50 mg PO DAILY #30 tab 12/05/18 12/31/18 sucralfate 1 g PO AC & HS #120 tab 12/05/18 12/31/18 Previous Rx's Medication Instructions Recorded acetaminophen [Mapap Extra 500 mg PO Q4H PRN PRN #0 tab 12/05/18 Strength] pantoprazole 40 mg PO DAILY@0730 #30 tab 12/05/18 promethazine 25 mg PO Q6H PRN PRN #30 tab 12/05/18 sertraline 50 mg PO DAILY #30 tab 12/05/18 sucralfate 1 g PO AC & HS #120 tab 12/05/18 Allergies Allergy/AdvReac Type Severity Reaction Status Date / Time amoxicillin Allergy Unverified 12/31/18 22:14 codeine Allergy Unverified 12/31/18 22:14 General Stated Complaint: Chest Pain JAMEEL: 3 Review of Systems Review of Systems All systems reviewed & are unremarkable except as noted in HPI and below Constitutional Denies chills, Denies fever(s) and Denies weakness Cardiovascular Denies dyspnea Respiratory Denies dyspnea Gastrointestinal Denies abdominal pain, Denies nausea and Denies vomiting Integumentary/Breasts Denies rash Neurologic Denies weakness [facility] Social History Smoking/Tobacco Use Status: Current every day Tobacco Type: cigarettes Tobacco: How many years used: 21 Alcohol Intake: current Alcohol Intake frequency: 3 or more drinks per day Alcohol type: beer Drug use: Occasionally Substance use type: marijuana Details: recorded h/o MJ and drug use but patient denies today Do you feel safe at home: Yes Do you feel safe in your relationship?: Yes Additional Social history: Patient is and has 2 children ages 13 and 14. Moved here from [place] approximately 2 years ago, now lives in [place]. 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 Reports ongoing alcohol use. 30+-pack-year history of smoking. Exam Const General: anxious Orientation: alert HENMT Head: normal to inspection Ears: external ears normal General nose exam: external nose normal Mouth: moist mucous membranes Eyes General: appearance normal, both eyes and all related structures Neck Neck: normal visual inspection Resp Effort & Inspection: normal respiratory effort and able to speak in complete sentences Cardio Rate: regular rate Skin General skin exam: no rashes or lesions noted Neuro General: alert and oriented x3 Extrem General: normal to inspection Psych Mental Status: mental status grossly normal Course Vital Signs Temperature 37 C 12/31/18 22:09 Pulse 105 H 12/31/18 22:09 Respiratory Rate 17 12/31/18 22:09 Blood Pressure 147/87 H 12/31/18 22:09 Pulse Oximetry 97 12/31/18 22:09 Temperature 37 C 12/31/18 22:09 Temperature Source Skin 12/31/18 22:09 Pulse 105 H 12/31/18 22:09 Respiratory Rate 16 12/31/18 22:14 Respiratory Effort 12/31/18 22:14 Respiratory Depth Normal 12/31/18 22:14 Blood Pressure 147/87 H 12/31/18 22:09 Blood Pressure Position Supine 12/31/18 22:09 Pulse Oximetry 97 12/31/18 22:09 Oxygen Delivery Method Room Air 12/31/18 22:09 Oxygen Flow Rate 0 12/31/18 22:09
[2018-12-31] MEDS: Prochlorperazine 10 MG/2 ML VIAL IVP (23:46)
[2018-12-31] MEDS: Omnipaque 350 MG/ML 100 ML BTL IV (23:53)
[2018-12-31 23:59] LABS: Troponin I < 0.05 ng/mL (0.00-0.06)
[2019-01-01 00:24] VITALS: PULSE 106; RESP 20; O2SAT 95
--- NOTE | 2019-01-01 00:53 | DI.VRAD_ITS ---
EXAM: CT Angiography Chest With Contrast EXAM DATE/TIME: 12/31/2018 11:05 PM CLINICAL HISTORY: 38 years old, female; Other: Chest pain, elevated d-dimer TECHNIQUE: Imaging protocol: Axial computed tomographic angiography images of the chest with intravenous contrast using CT angiography protocol. Coronal and sagittal reformatted images were created and reviewed. 3D rendering: MIP reconstructed images were created and reviewed. Radiation optimization: All CT scans at this facility use at least one of these dose optimization techniques: automated exposure control; mA and/or kV adjustment per patient size (includes targeted exams where dose is matched to clinical indication); or iterative reconstruction. Contrast material: OMNIPAQUE 350; Contrast volume: 75 ml; Contrast route: IV; COMPARISON: CT CHEST PE CTA 11/27/2018 2:38 PM FINDINGS: Pulmonary arteries: Normal. No pulmonary emboli. Aorta: Unremarkable. No aortic aneurysm. No aortic dissection. Lungs: Unremarkable. No consolidation. No masses. Pleural space: Unremarkable. No pneumothorax. No pleural effusion. Heart: Unremarkable. No cardiomegaly. No pericardial effusion. Liver: Hepatic steatosis. Pancreas: Nonspecific surgical device partially visualized in the upper abdomen near the pancreatic head with persistent partially visualized structure again suggested in the pancreatic head. Lymph nodes: Unremarkable. No enlarged lymph nodes. Bones/joints: Unremarkable. No acute fracture. Soft tissues: Unremarkable. IMPRESSION: 1. No acute finding. 2. Nonspecific surgical device partially visualized in the upper abdomen near the pancreatic head with persistent partially visualized structure again suggested in the pancreatic head. Dictated and Authenticated by: Koby Bess MD. Ordering:CHENCHO Whalen MD
[2019-01-01 00:54] VITALS: O2SAT 95
[2019-01-01 01:06] VITALS: BP 128/78; PULSE 94; RESP 16; TEMP 36.9; O2SAT 98
--- NOTE | 2019-01-01 08:13 | NUR.NOTE ---
F/U referral faxed to PCP Soledad Irizarry.Nursing Note:
== END 2019-01-01 01:10 | disposition home or self-care (01) ==
PROVIDERS: Emergency Provider Emergency Medicine; PCP Nurse Practitioner Family
DX: R07.9 Chest pain, unspecified (principal); F41.9 Anxiety disorder, unspecified
CPT/HCPCS: 36415; 71275; 93005; 96374; 99285; 84484; 93010; J0780; J3490

== ENCOUNTER 2019-01-01 10:30 | Inpatient (IN) | payer MEDICAID, SELFPAY ==
[2019-01-01] VITALS (110 sets, daily range): BP systolic 102–156; BP diastolic 72–117; PULSE 93–131; RESP 10–28; TEMP 36.4–37.7; O2SAT 92–100
--- NOTE | 2019-01-01 10:41 | W.ED.GENAD ---
Discharge Plan Disposition Patient Disposition: [facility] INPATIENT Condition: Critical Discharge Details Chief Complaint: ETOHWithdr Clinical Impression: Alcohol withdrawal Primary Care Provider: Soledad Irizarry ED Provider: Earl Guzman Home Meds and New Rx's Prescriptions: No Action acetaminophen [Mapap Extra Strength] 500 mg Tablet 500 mg PO Q4H PRN PRNQty: 0 RF: 0 sucralfate 1 gram Tablet 1 g PO AC & HS Qty: 120 RF: 0 pantoprazole 40 mg Tablet,Delayed Release (Dr/Ec) 40 mg PO DAILY@0730 Qty: 30 RF: 0 promethazine 25 mg Tablet 25 mg PO Q6H PRN PRNQty: 30 RF: 0 sertraline 50 mg Tablet 50 mg PO DAILY Qty: 30 RF: 0 Medical Decision Making 10:45 --patient was evaluated on arrival with EMS. Laina is a 38-year-old female with a history of alcoholism, here today with tremors, nausea and tachycardia. Her last drink was yesterday at 5 PM. She has not been able to afford alcohol today. Patient is in acute etoh withdrawal. Plan to treat with ativan 2mg IV. Will give IVF bolus. Will give thiamine IV. Patient also notes chest discomfort. Likely GI origin and related to alcohol abuse as patient had negative CTA and negative troponin yesterday. Will check screening ecg and repeat trop. CT of the chest interpreted by radiology 12/31/18: IMPRESSION: 1. No acute finding. 2. Nonspecific surgical device partially visualized in the upper abdomen near the pancreatic head with persistent partially visualized structure again suggested in the pancreatic head. Will give compazine 10mg for nausea. Patient notes that zofran gives her HAs. --Screening ECG was reviewed and interpreted by me: Sinus rhythm 90 bpm, normal axis, nondiagnostic. 11:35 -- Labs reviewed and mild hypomag and hypokalemia noted. Will give mag 1g IV --patient will then require potassium replacement. Anion gap acidosis noted. no ICU beds available at [facility]. Plan to transfer the patient. I have called [facility] to request transfer and awaiting a callback. The nursing supervisor coremaker who I spoke with there was not sure if hospitalist was available. I will also call [facility] to see if they have immediate availability. Awaiting callback. --Patient reassessed and much improved after Ativan. Heart rate improved. Tremor resolved. Feeling better. 12:35 --I spoke with Dr. Sylvester who would accept the patient in transfer [place] [facility] Shortly thereafter I was notified by warehouse receiving supervisor that we would have a bed here for patient. Transfer canceled. Patient to be admitted here. I spoke with the hospitalist who will admit the patient. Care transition to Dr. Healy. HPI General Mode of arrival: EMS. Date/Time Provider Initiated Documentation: 01/01/19 10:36. Limitations to Documentation: no limitations. Information obtained by: EMS. HPI Narrative: 38-year-old female who abuses alcohol, history of anxiety, here with chief complaint of withdrawal. Patient notes that she typically consumes daily. She notes her last drink was yesterday around 5 PM. She has not been able to afford additional alcohol today and is now feeling shaky, nauseous, and has continued chest discomfort. Of note, patient was seen here yesterday for chest discomfort and had negative diagnostic work-up including CTA of her chest and troponin. Related Data Home Medications Medication Instructions Recorded Confirmed acetaminophen [Mapap Extra 500 mg PO Q4H PRN PRN #0 tab 12/05/18 12/31/18 Strength] pantoprazole 40 mg PO DAILY@0730 #30 tab 12/05/18 12/31/18 promethazine 25 mg PO Q6H PRN PRN #30 tab 12/05/18 12/31/18 sertraline 50 mg PO DAILY #30 tab 12/05/18 12/31/18 sucralfate 1 g PO AC & HS #120 tab 12/05/18 12/31/18 Previous Rx's Medication Instructions Recorded acetaminophen [Mapap Extra 500 mg PO Q4H PRN PRN #0 tab 12/05/18 Strength] pantoprazole 40 mg PO DAILY@0730 #30 tab 12/05/18 promethazine 25 mg PO Q6H PRN PRN #30 tab 12/05/18 sertraline 50 mg PO DAILY #30 tab 12/05/18 sucralfate 1 g PO AC & HS #120 tab 12/05/18 Allergies Allergy/AdvReac Type Severity Reaction Status Date / Time amoxicillin Allergy Unverified 12/31/18 22:14 codeine Allergy Unverified 12/31/18 22:14 General Stated Complaint: ETOHWithdr JAMEEL: 3 Review of Systems Review of Systems All systems reviewed & are unremarkable except as noted in HPI and below Constitutional Comments: Generally does not feel well Cardiovascular Reports chest pain and Denies dyspnea Respiratory Denies dyspnea Gastrointestinal Reports nausea Neurologic Reports other (Shaky) Psychiatric Reports anxiety [facility] Medical History Acute pancreatitis (Acute) Alcohol abuse (Chronic) Anxiety (Chronic) Chronic pancreatitis (Chronic) DVT (deep venous thrombosis) (Inactive) Hemorrhagic pancreatitis (Resolved) History of DVT (deep vein thrombosis) (Chronic) Pancreatic pseudocyst (Chronic) Pancreatitis (Inactive) Withdrawal seizures (Suspected) Surgical History H/O chest tube placement (Inactive) H/O LEEP (Acute) Social History Smoking/Tobacco Use Status: Current every day Tobacco Type: cigarettes Tobacco: How many years used: 21 Alcohol Intake: current Alcohol Intake frequency: 3 or more drinks per day Alcohol type: beer Drug use: Occasionally Substance use type: marijuana Details: recorded h/o MJ and drug use but patient denies today Do you feel safe at home: Yes Do you feel safe in your relationship?: Yes Additional Social history: Patient is and has 2 children ages 13 and 14. Moved here from [place] approximately 2 years ago, now lives in [place]. 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 Reports ongoing alcohol use. 30+-pack-year history of smoking. Exam Const General: cooperative HENMS Head: normocephalic and atraumatic Eyes Conjunctivae: normal conjunctivae Sclera: normal sclerae Neck Neck: trachea midline and supple Resp Auscultation: clear to auscultation bilaterally, no rales, no rhonchi and no wheezes Cardio Jugular venous pressure: no JVD Rate: tachycardic Rhythm: regular rhythm GI Palpation: soft, not firm, no guarding, no masses, not rigid and nontender Skin General skin exam: no rashes or lesions noted Neuro General: alert, awake, oriented x3 and tone normal Extrem General: no edema Psych Appearance: grossly normal Mood: anxious mood Affect: anxious affect Course Vital Signs Temperature 36.4 C L 01/01/19 10:30 Pulse 112 H 01/01/19 10:30 Respiratory Rate 16 01/01/19 10:30 Blood Pressure 134/94 H 01/01/19 10:30 Pulse Oximetry 96 01/01/19 10:30 Temperature 36.4 C L 01/01/19 10:30 Temperature Source Temporal Artery Scan 01/01/19 10:30 Pulse 112 H 01/01/19 10:30 Respiratory Rate 16 01/01/19 10:30 Blood Pressure 134/94 H 01/01/19 10:30 Blood Pressure Position Sitting 01/01/19 10:30 Pulse Oximetry 96 01/01/19 10:30 Oxygen Delivery Method Room Air 01/01/19 10:30 Oxygen Flow Rate 0 01/01/19 10:30 Pain Level 10 01/01/19 10:30 Critical Care Time Critical Care Time: Yes Total Critical Care Time: 38 Attestation: I spent greater than 38 minutes addressing this patient's immediate life threats
[2019-01-01] MEDS: LORazepam 2 MG/ML VIAL IVP ×5 (10:56→23:19)
[2019-01-01] MEDS: Thiamine 200 MG/2 ML VIAL 100 MG IM (10:57)
[2019-01-01] MEDS: Normal Saline 1,000 ML 1000 ML IV (10:57)
[2019-01-01 11:08] LABS: Abs Immature Grans 0.02 k/cumm (0.0-0.09); Absolute Basophil Count 0.02 k/cumm (0.0-0.2); Absolute Eosinophil Count 0.01 k/cumm (0.0-0.7); Absolute Lymphocyte Count 1.15 k/cumm (1.2-3.4); Absolute Monocyte Count 0.58 k/cumm (0.11-0.7); Basophils % 0.2; Eosinophils % 0.1; HCT 38.4 % (36.0-46.0); HGB 13.1 g/dL (12.0-15.5); Immature Grans % 0.2; Lymphocytes % 10.3; Mean Corp. HGB Concentration 34.1 g/dL (32.0-36.0); Mean Corpuscular Hemoglobin 30.8 pg (27.0-33.0); Mean Corpuscular Volume 90.4 fL (80-95); Mean Platelet Volume 9.4 fL (8.0-11.0); Monocytes % 5.2; Platelet Count 356 x1000/uL (130-400); RBC 4.25 m/cumm (4.00-5.20); RBC Distribution Width 14.9 % (11.7-14.6); White Blood Cell Count 11.19 k/cumm (4.4-10.8)
[2019-01-01] MEDS: Prochlorperazine 10 MG/2 ML VIAL IVP (11:17)
[2019-01-01 11:25] LABS: ALT 16 U/L (12-78); AST 28 U/L (15-37); Albumin 3.5 g/dL (3.4-5.0); Alkaline Phosphatase 234 U/L (46-116); Anion Gap 18.7 mmol/L (3-11); BUN 5 mg/dL (7-18); Bilirubin, Total 0.6 mg/dL (0.2-1.0); CO2 21.3 mmol/L (21.0-32.0); CREATININE 0.45 mg/dL (0.55-1.02); Calcium 9.2 mg/dL (8.5-10.1); Chloride 98 mmol/L (98-107); Glucose 102 mg/dL (70-100); Magnesium 1.5 mg/dL (1.8-2.4); Potassium 3.2 mmol/L (3.5-5.1); Sodium 138 mmol/L (136-145); Total Protein 7.6 g/dL (6.4-8.2)
[2019-01-01 11:27] LABS: Troponin I < 0.05 ng/mL (0.00-0.06)
[2019-01-01] MEDS: MAGNESIUM SULFATE 1 GM/100 ML BAG IVPB (11:50)
[2019-01-01 11:51] LABS: Lipase 31 U/L (73-393)
--- NOTE | 2019-01-01 12:32 | NUR.NOTE ---
Nursing Note: pt tremors have subsided using commode w/o difficult amb.
[2019-01-01] MEDS: Enoxaparin 40 MG/0.4 ML SYR SC (14:19)
--- NOTE | 2019-01-01 15:13 | HPE_ITS ---
Date of service: 01/01/19 Time of Service: 15:13 Assessment and Plan (1) Alcohol withdrawal: Current visit: No Status: Acute Admitted to ICU with ativan IV/PO per CIID as well as scheduled librium. Provide vitamins, IVF. Correct and monitor lytes. High risk for withdrawal seizures (2) Hypokalemia: Current visit: No Status: Acute Replete (3) Chronic pancreatitis: Current visit: No Status: Chronic Appears to be at baseline. Consider starting creon. (4) Epigastric pain: Current visit: No Status: Resolved Appears to be at baseline. Continue PPI + carafate. (5) Smoker: Current visit: No Status: Acute Advised to quit. Provide replacement therapy (6) Hypomagnesemia: Current visit: Yes Status: Acute replete (7) DVT prophylaxis: Current visit: Yes Status: Acute lovenox (8) Discharge planning issues: Current visit: No Status: Acute Full code History of Present Illness Chief Complaint: Heart rate of 157 Narrative: 38 year old female with PMHx of alcohol abuse with history of withdrawal seizures, chronic pancreatitis, pancreatic pseudocyst s/p drainage, DVT BLE's in 2013, no longer on anticoagluation therapy, anxiety disorder NOS, who was seen in the ED yesterday for chest pain and anxiety and discharged home, who resturned to [facility] ED today complaining of HR being in 150's on her home pulse ox meter. She stated it made her feel anxious/panicky, so she came back to the hospital. Here, she found herself going into alcohol withdrawal, requiring several doses of IV ativan. We were asked to admit the patient for further care. She last drank at 1736 yesterday. She drinks between a 6 and a 12 pack of beer daily. She continues to report epigastric pain this morning which she has had ever since her pancreatic pseudocyst was drained. Yesterday's chest pain was in fact one and the same with abdominal pain, which is different than the pain she had now. Finally, the patient continues to have a cough productive of white sputum, unchanged since she last left here. Review of Systems Review of Systems 12 systems reviewed. Pertinent positives and negatives are as per HPI. Additionally, the patient reports feeling anxious, seeing black and white stars in the periphery since yesterday, having a productive cough. PFSH Medical History (Updated 01/01/19 @ 15:34 by Kassidy Healy MD) Acute pancreatitis (Acute) Alcohol abuse (Chronic) Alcoholic hepatitis (Acute) Anxiety (Chronic) Chronic pancreatitis (Chronic) DVT (deep venous thrombosis) (Inactive) Hemorrhagic pancreatitis (Resolved) History of DVT (deep vein thrombosis) (Chronic) Pancreatic pseudocyst (Chronic) Pancreatitis (Inactive) Seizure disorder (Chronic) Smoker (Acute) Thrombocytopenia (Chronic) Withdrawal seizures (Suspected) Surgical History (Updated 01/01/19 @ 15:27 by Kassidy Healy MD) H/O chest tube placement (Inactive) H/O esophagogastroduodenoscopy (Chronic) H/O LEEP (Acute) Family History (Updated 01/01/19 @ 15:27 by Kassidy Healy MD) Other Adopted Social History Smoking/Tobacco Use Status: Current every day Tobacco Type: cigarettes Tobacco: How many years used: 21 Alcohol Intake: current Alcohol Intake frequency: 3 or more drinks per day Alcohol type: beer Drug use: Occasionally Substance use type: marijuana Details: recorded h/o MJ and drug use but patient denies today Do you feel safe at home: Yes Do you feel safe in your relationship?: Yes Additional Social history: Patient is and has 2 children ages 13 and 14. Moved here from [place] approximately 2 years ago, now lives in [place]. 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 Reports ongoing alcohol use. 30+-pack-year history of smoking. Meds Home Medications Medication Instructions Recorded Confirmed Type acetaminophen [Mapap Extra 500 mg PO Q4H PRN PRN #0 tab 12/05/18 01/01/19 Rx Strength] pantoprazole 40 mg PO DAILY@0730 #30 tab 12/05/18 01/01/19 Rx promethazine 25 mg PO Q6H PRN PRN #30 tab 12/05/18 01/01/19 Rx sertraline 50 mg PO DAILY #30 tab 12/05/18 01/01/19 Rx sucralfate 1 g PO AC & HS #120 tab 12/05/18 01/01/19 Rx lorazepam [Ativan] 1 - 2 mg PO QID PRN PRN 01/01/19 01/01/19 History Allergies Allergy/AdvReac Type Severity Reaction Status Date / Time amoxicillin Allergy Unverified 12/31/18 22:14 codeine Allergy Unverified 12/31/18 22:14 Exam Narrative Exam Narrative: General: anxious female, sitting up in bed, minimally tremulous at the time that I saw her, cooperative, not hallucinating Neuro: A&Ox3, no obvious focal deficits Psych: mildly anxious Skin: visible skin intact HEENT: Atraumatic, normocephalic, EOMI, dry MM, clear oropharynox, no goiter or JVD Heart; RRR, tachycardic Lungs: quiet ronchi on expiration B; coughing GI: abdomen is soft, tender in epigastrium, nondistended Extremities: no e/c/c BLE's Results Labs : 01/01/19 11:02 01/01/19 11:02 Laboratory Results - last 24 hr 01/01/19 01/01/19 01/01/19 11:02 11:02 11:02 WBC 11.19 H D RBC 4.25 Hgb 13.1 Hct 38.4 MCV 90.4 MCH 30.8 MCHC 34.1 RDW 14.9 H Plt Count 356 MPV 9.4 Immature Gran % 0.2 Neutrophils % 84.0 Lymphocytes % 10.3 Monocytes % 5.2 Eosinophils % 0.1 Basophils % 0.2 Absolute Neutrophils 9.40 H Absolute Lymphocytes 1.15 L Absolute Monocytes 0.58 Absolute Eosinophils 0.01 Absolute Basophils 0.02 Sodium 138 Potassium 3.2 L Chloride 98 Carbon Dioxide 21.3 Anion Gap 18.7 H BUN 5 L Creatinine 0.45 L Estimated GFR/1.73 m2 >= 60.00 Glucose 102 H Calcium 9.2 Magnesium 1.5 L Total Bilirubin 0.6 AST 28 ALT 16 Alkaline Phosphatase 234 H Troponin I < 0.05 Total Protein 7.6 Albumin 3.5 Lipase 31 L Last Vital Signs Temp 37.3 C 01/01/19 14:16 Pulse 99 H 01/01/19 14:18 Resp 15 01/01/19 14:50 BP 130/74 01/01/19 14:18 Pulse Ox 97 01/01/19 14:50
[2019-01-01] MEDS: Normal Saline Flush 10 ML SYR IVP ×2 (15:51→18:35)
[2019-01-01] MEDS: chlordiazePOXIDE 25 MG CAP PO ×2 (15:52→19:44)
[2019-01-01] MEDS: Nicotine 21 MG/24 HR PATCH TD (15:52)
[2019-01-01] MEDS: POTASSIUM CHLORIDE/0.9% NACL 1,000 ML 125 MEQ IV (16:33)
[2019-01-01] MEDS: Sucralfate 1 GM TAB PO ×2 (16:38→21:56)
[2019-01-01] MEDS: POTASSIUM CHLORIDE 20 MEQ/100 ML BAG 50 MEQ IVPB ×2 (16:47→18:50)
[2019-01-01] MEDS: MAGNESIUM SULFATE 4 GM/100 ML BAG IVPB (16:49)
[2019-01-01] MEDS: Promethazine 25 MG TAB PO (19:58)
[2019-01-01] MEDS: Mylanta Suspension 30 ML CUP PO (21:08)
[2019-01-01] MEDS: LORazepam 1 MG TAB PO (22:05)
[2019-01-02] VITALS (21 sets, daily range): BP systolic 101–146; BP diastolic 59–97; PULSE 81–127; RESP 15–26; TEMP 36.7–37.5; O2SAT 95–99
[2019-01-02] MEDS: POTASSIUM CHLORIDE/0.9% NACL 1,000 ML 125 MEQ IV ×3 (00:23→16:56)
[2019-01-02] MEDS: LORazepam 2 MG/ML VIAL IVP ×5 (02:21→21:39)
[2019-01-02] MEDS: LORazepam 1 MG TAB PO (03:47)
[2019-01-02 07:19] LABS: Abs Immature Grans 0.01 k/cumm (0.0-0.09); Absolute Basophil Count 0.01 k/cumm (0.0-0.2); Absolute Eosinophil Count 0.13 k/cumm (0.0-0.7); Absolute Lymphocyte Count 1.79 k/cumm (1.2-3.4); Absolute Monocyte Count 0.56 k/cumm (0.11-0.7); Absolute Neutrophil Count 3.04 k/cumm (1.2-6.7); Basophils % 0.2; Eosinophils % 2.3; HCT 41.1 % (36.0-46.0); HGB 13.7 g/dL (12.0-15.5); Immature Grans % 0.2; Lymphocytes % 32.3; Mean Corp. HGB Concentration 33.3 g/dL (32.0-36.0); Mean Corpuscular Hemoglobin 30.6 pg (27.0-33.0); Mean Corpuscular Volume 91.9 fL (80-95); Mean Platelet Volume 9.8 fL (8.0-11.0); Monocytes % 10.1; Neutrophils % 54.9; Platelet Count 256 x1000/uL (130-400); RBC 4.47 m/cumm (4.00-5.20); White Blood Cell Count 5.54 k/cumm (4.4-10.8)
[2019-01-02 07:29] LABS: Anion Gap 11.1 mmol/L (3-11); BUN 3 mg/dL (7-18); CO2 23.9 mmol/L (21.0-32.0); CREATININE 0.45 mg/dL (0.55-1.02); Chloride 104 mmol/L (98-107); Glucose 95 mg/dL (70-100); Magnesium 2.4 mg/dL (1.8-2.4); Potassium 4.5 mmol/L (3.5-5.1); Sodium 139 mmol/L (136-145)
[2019-01-02] MEDS: Sucralfate 1 GM TAB PO ×4 (08:01→21:39)
[2019-01-02] MEDS: Sertraline 50 MG TAB PO (08:02)
[2019-01-02] MEDS: chlordiazePOXIDE 25 MG CAP PO ×2 (08:02→08:39)
[2019-01-02] MEDS: Thiamine 100 MG TAB PO (08:02)
[2019-01-02] MEDS: Pantoprazole 40 MG TABCR PO (08:02)
[2019-01-02] MEDS: Multivitamin TAB 1 TAB PO (08:02)
[2019-01-02] MEDS: Folic Acid 1 MG TAB PO (08:02)
[2019-01-02] MEDS: Nicotine 21 MG/24 HR PATCH TD (08:03)
[2019-01-02] MEDS: Acetaminophen 325 MG TAB PO ×2 (08:08→16:16)
[2019-01-02] MEDS: LORazepam 1 MG TAB PO/SL ×5 (08:09→23:49)
--- NOTE | 2019-01-02 08:24 | PGE_ITS ---
Date of Service Date of service: 01/02/19 Time of Service: 08:24 Assessment and Plan (1) Alcohol withdrawal: Current visit: No Status: Acute Continue to monitor in ICU with ativan IV/PO per CIWA as well as scheduled librium. Librium dose was increased today. Provide vitamins, IVF. Correct and monitor lytes. High risk for withdrawal seizures (2) Hypokalemia: Current visit: No Status: Resolved Monitor (3) Chronic pancreatitis: Current visit: No Status: Chronic At baseline. Advance diet. (4) Epigastric pain: Current visit: No Status: Resolved Appears to be at baseline. Continue PPI + carafate. Advance diet. prn mylanta (5) Smoker: Current visit: No Status: Acute Advised to quit. Provide replacement therapy (6) Hypomagnesemia: Current visit: Yes Status: Resolved Monitor (7) Urinary incontinence: Current visit: Yes Status: Acute Check bladder scans, UA, C&S. Could be due to autonomic instability. I doubt cauda equina. 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 Ideally, would be evaluated once the withdrawal symptoms (9) DVT prophylaxis: Current visit: Yes Status: Acute lovenox (10) Discharge planning issues: Current visit: No Status: Acute Full code Subjective Interval history since last seen: Vomited last night and got diaphoretic. CIWA scores in the 20's this am. States librium and ativan are helping. Still having peripheral vision stars, reports numbness and tingling in her hands and feet. Tremulous/anxious this am. Light is bothering her. She reports urinary frequency, urgency, incontinence. Sometimes endorses same with fecal incontinence at home. She states at home she walks around naked so that it's easier to clean up. Denies any lower back pain. She is not sure if she has had trauma to lower back - because she has been falling a lot. She thinks she fell 3 times at home since she was discharged from the hospital. She is wondering why this is happening. She is wondering if she has a wet brain. She states she used to get MRIs frequently for her migraines. She thinks she may have had one a few months ago, but she does not know whether it was here or in [place]. She denies any numbness/tingling in genital region. She thinks these symptoms mostly happen when she is withdrawing from alcohol. Exam Narrative Exam Narrative: General: anxious female, not hallucinating, sitting up in bed, does appear forgetful of when she got to the hospital (she thinks she called the ambulance this morning) HEENT: Atraumatic, normocephalic, EOMI, MMM Heart; RRR, tachycardic Lungs: coarse breath sounds B - she sounds better than yesterday GI: abdomen is soft, tender in epigastrium, nondistended Extremities: no e/c/c BLE's Objective Objective Clinical Data: Abnormal lab results 01/01/19 01/01/19 01/01/19 Range/Units 11:02 11:02 11:02 WBC 11.19 H D (4.4-10.8) k/cumm RDW 14.9 H (11.7-14.6) % Absolute Neutrophils 9.40 H (1.2-6.7) k/cumm Absolute Lymphocytes 1.15 L (1.2-3.4) k/cumm Potassium 3.2 L (3.5-5.1) mmol/L Anion Gap 18.7 H (3-11) mmol/L BUN 5 L (7-18) mg/dL Creatinine 0.45 L (0.55-1.02) mg/dL Glucose 102 H (70-100) mg/dL Magnesium 1.5 L (1.8-2.4) mg/dL Alkaline Phosphatase 234 H (46-116) U/L Lipase 31 L (73-393) U/L 01/02/19 01/02/19 Range/Units 06:25 06:25 WBC (4.4-10.8) k/cumm RDW 15.0 H (11.7-14.6) % Absolute Neutrophils (1.2-6.7) k/cumm Absolute Lymphocytes (1.2-3.4) k/cumm Potassium (3.5-5.1) mmol/L Anion Gap 11.1 H (3-11) mmol/L BUN 3 L (7-18) mg/dL Creatinine 0.45 L (0.55-1.02) mg/dL Glucose (70-100) mg/dL Magnesium (1.8-2.4) mg/dL Alkaline Phosphatase (46-116) U/L Lipase (73-393) U/L Vital Signs Temperature 36.7 C 01/02/19 03:05 Temperature Source Temporal Artery Scan 01/02/19 03:05 Pulse 96 H 01/02/19 07:43 Pulse 102 H 01/02/19 07:43 Respiratory Rate 22 01/02/19 06:01 Respiratory Effort 01/02/19 03:05 Respiratory Depth Normal 01/02/19 03:05 Respiratory Pattern Normal 01/02/19 03:05 Blood Pressure 121/82 01/02/19 07:43 Blood Pressure Mean 93 01/02/19 07:43 Blood Pressure Position Sitting 01/02/19 03:05 Pulse Oximetry 95 01/02/19 07:43 Oxygen Delivery Method Room Air 01/02/19 03:05 Oxygen Flow Rate 0 01/02/19 03:05 Pain Level 5 01/02/19 08:08 Intake & Output 01/01/19 01/01/19 01/02/19 11:59 23:59 11:59 Intake Total 3170.000 / 3170.000 1857.083 / 1857.083 Output Total 4150 / 4150 650 / 650 Balance -980.000 / -761.345 5904.083 / 1207.083 Weight 54.431 kg 54.2 kg 52.8 kg Intake: IV 1320.000 / 1320.000 977.083 / 977.083 Oral 1850 / 1850 880 / 880 Output: Urine 4150 / 4150 650 / 650 Other: Urine Color Yellow Yellow Urine Appearance Clear Clear Urine Odor Normal Normal Comment multiple voids in commode Stool Size Moderate Stool Characteristics Soft Brown Voiding Methods Bedside Commode Incontinent Laboratory Results WBC 5.54 k/cumm (4.4-10.8) D 01/02/19 06:25 RBC 4.47 m/cumm (4.00-5.20) 01/02/19 06:25 Hgb 13.7 g/dL (12.0-15.5) 01/02/19 06:25 Hct 41.1 % (36.0-46.0) 01/02/19 06:25 MCV 91.9 fL (80-95) 01/02/19 06:25 MCH 30.6 pg (27.0-33.0) 01/02/19 06:25 MCHC 33.3 g/dL (32.0-36.0) 01/02/19 06:25 RDW 15.0 % (11.7-14.6) H 01/02/19 06:25 Plt Count 256 x1000/uL (130-400) D 01/02/19 06:25 MPV 9.8 fL (8.0-11.0) 01/02/19 06:25 Immature Gran % 0.2 01/02/19 06:25 54.9 01/02/19 06:25 32.3 01/02/19 06:25 10.1 01/02/19 06:25 2.3 01/02/19 06:25 0.2 01/02/19 06:25 Absolute Neutrophils 3.04 k/cumm (1.2-6.7) 01/02/19 06:25 Absolute Lymphocytes 1.79 k/cumm (1.2-3.4) 01/02/19 06:25 Absolute Monocytes 0.56 k/cumm (0.11-0.7) 01/02/19 06:25 Absolute Eosinophils 0.13 k/cumm (0.0-0.7) 01/02/19 06:25 Absolute Basophils 0.01 k/cumm (0.0-0.2) 01/02/19 06:25 Sodium 139 mmol/L (136-145) 01/02/19 06:25 Potassium 4.5 mmol/L (3.5-5.1) D 01/02/19 06:25 Chloride 104 mmol/L (98-107) 01/02/19 06:25 Carbon Dioxide 23.9 mmol/L (21.0-32.0) 01/02/19 06:25 11.1 mmol/L (3-11) H 01/02/19 06:25 BUN 3 mg/dL (7-18) L 01/02/19 06:25 0.45 mg/dL (0.55-1.02) L 01/02/19 06:25 >= 60.00 (mL/min/1.73m2) 01/02/19 06:25 Glucose 95 mg/dL (70-100) 01/02/19 06:25 Calcium 9.0 mg/dL (8.5-10.1) 01/02/19 06:25 Magnesium 2.4 mg/dL (1.8-2.4) 01/02/19 06:25 0.6 mg/dL (0.2-1.0) 01/01/19 11:02 AST 28 U/L (15-37) 01/01/19 11:02 ALT 16 U/L (12-78) 01/01/19 11:02 234 U/L (46-116) H 01/01/19 11:02 < 0.05 ng/mL (0.00-0.06) 01/01/19 11:02 7.6 g/dL (6.4-8.2) 01/01/19 11:02 3.5 g/dL (3.4-5.0) 01/01/19 11:02 31 U/L (73-393) L 01/01/19 11:02
[2019-01-02] MEDS: Mylanta Suspension 30 ML CUP PO ×2 (09:25→14:36)
[2019-01-02] MEDS: Promethazine 25 MG TAB PO ×2 (10:21→16:52)
--- NOTE | 2019-01-02 10:45 | PDOC.CMIN ---
Care Management Initial Assess REASON FOR HOSPITALIZATION:: Alcohol Withdrawal PAST MEDICAL HISTORY/PAST SURGICAL HISTORY:: Medical History . Pancreatic pseudocyst (Chronic). Chronic pancreatitis (Chronic). Anxiety (Chronic). Withdrawal seizures (Suspected). History of DVT (deep vein thrombosis) (Chronic). Alcohol abuse (Chronic). Acute pancreatitis (Acute). Hemorrhagic pancreatitis (Resolved). DVT (deep venous thrombosis) (Inactive). Pancreatitis (Inactive). Surgical History. H/O LEEP (Acute). H/O chest tube placement (Inactive) PREVIOUS FUNCTIONAL STATUS/SOCIAL/FAMILY SUPPORTS:: Laina resides with her and two daughters (ages 13 and 14) in [place]. She is not currently employed. Liana states that she has only been in the area for a year and a half, having relocated from [place]. She is independent with ADLs but states she has had some difficulties with ambulation due to heavy drinking. She is well known to [facility] and struggles with alcohol addiction. She has been to the ER 14x/last year resulting in four admissions for withdrawal with seizures. CURRENT FUNCTIONAL STATUS:: Laina reports again (see below) that she ran out of ativan and was unable to secure more through her PCP, she adds that her PCP feels she would be better served by another PCP-an MD. Laina was sitting up in bed when CM came to visit. She stated that she is feeling better than she was yesterday but still has pain. She acknowledged that she has been drinking 2-3 beers a day for the past few days because she ran out of Librium and Ativan. She states that the nurse at [facility] told her a couple of beers a day was OK so she would not go into DT's. She has an appointment with a new PCP in early December and she says the plan is to give her a prescription for enough Librium and Valium to last until she sees her new PCP. ADVANCE DIRECTIVES:: None on file at [facility]. Has patient been provided with information about the portal?: Yes Did the patient sign up for the portal?: No CODE STATUS:: Full Code INSURANCE COVERAGE / FINANCIAL ISSUES:: Medicaid CURRENT HOME/COMMUNITY SERVICES/EQUIPMENT:: [employer]crete [employer]; primarily Yamile Gilbert PRIMARY CARE PHYSICIAN:: Soledad Irizarry; request made for MD assignment POTENTIAL DISCHARGE NEEDS:: [facility] coordination. Referrals for ongoing [employer], JEFF Reich, [facility], MD assignment. PATIENT/FAMILY EDUCATION NEEDS:: Review of community based supports, alcohol withdrawal process, discharge considerations, avenues for support. ANTICIPATED BARRIERS TO DISCHARGE:: None identified. TRANSPORTATION:: Via private vehicle with her , RCT or rn recovery. PLAN:: Zahraa continues to be closely monitored and treated. She remains on IVF and medications. CM provided therapeutic support to Zahraa as she processed her situation-relocation, lack of coping mechanisms, strained natural support system relationships and untreated mental health diagnosis, as well as ongoing illness connected with her alcoholism and severe anxiety. Zahraa reports she is looking forward to going to [facility] and has been accepted for Monday. She plans to transport with her . Readmission - Within the Past 30 Days Yes or No: N - Date of First Admission Date of 1st Admission: 12/14/18 - Date of this Admission Date of Admission: 01/01/19 This admission was: Through ED - Office Visit Since 1st Admission Have you seen your PCP in the office since discharge?: No Had an appointment Been Scheduled?: Yes Date of Scheduled Appointment: 12/21/18 - Assessment for Readmission Summary of readmission circumstances, based upon interviews: Ongoing alcohol abuse. Laina identified many psycho/social factors contributing to her substance abuse, including untreated BIPOLAR disorder, past trauma, ADHD. She also shared concerns about her home setting including her relationship with her , and her teenage daughters. She reports a good day is when she makes it to her mailbox as she often does not leave the home. Zahraa identified that she would be better served by new PCP assignment; as well as medication management, [facility] with possible step down into [facility] housing. CM reviewed community based supports and offered to assist in discharge planning with . Zahraa reported her [employer] made a huge difference in feeling like she could be successful this time around.
--- NOTE | 2019-01-02 11:39 | PHARADMIT ---
Addendum entered by José Clemons III 01/04/19 15:34: Pharmacy Note Subjective Here for Alcohol withdrawal. CIWA scores are lowering. Objective VS-OK, k+3.7, mAG-1.5, Assessment Using Aivan & Librium for CIWA Plan wILL BE TRANSFERRED TO [facility] Original Note: Admission Pharmacy Clinical Review Code Status Full Code Current Weight 52.8 kg Renally Cleared and Narrow Therapeutic Index Meds CRCL ~79.64 QTc Value / Action Taken QTc 433 BP Control, Fever BP 141/92, 36.7 (tmax 37.7) Electrolytes reviewed Na 139, K+ 4.5 (up from 3.2), Mg 2.4 (up from 1.5) DVT Prophylaxis Enoxaparin 40mg Opiate Usage / Scheduled Bowel Regimen Ordered No opiates Plt/SCr for Heparin / Enoxaparin Plt 256, Scr 0.45 INR for Warfarin H/H stable, WBC/Bands H/H 41.1/13.7 Antibiotic appropriateness Cultures and Sensitivities Surgical ABX d/c within 24 hr DM control / Insulin Dosing Heart Failure (Check EF%) (WYATT's, B-Block, Diuretics) None IV to PO Switch Home Meds Reviewed Yes, no issues Home Meds Not Ordered All ordered Comments CIWA score in 20s this morning; continue to monitor for symptoms of withdrawal (lytes, seizures)
[2019-01-02] MEDS: Enoxaparin 40 MG/0.4 ML SYR SC (12:03)
[2019-01-02 13:48] LABS: Bilirubin Negative (Negative); Blood Negative (Negative); Clarity Clear (Clear); Glucose Negative (Negative); Ketones Negative (Negative); Leukocyte Esterase Negative (Negative); Nitrite Negative (Negative); Urobilinogen 0.2 EU/dL (Up TO 0.2)
[2019-01-02] MEDS: chlordiazePOXIDE 25 MG CAP 50 MG PO ×2 (14:03→19:44)
[2019-01-02] MEDS: Lidocaine 2% Viscous 15 ML CUP PO (14:36)
[2019-01-03] VITALS (25 sets, daily range): BP systolic 115–146; BP diastolic 73–120; PULSE 63–141; RESP 11–26; TEMP 36.3–37.1; O2SAT 97–100
[2019-01-03] MEDS: POTASSIUM CHLORIDE/0.9% NACL 1,000 ML 125 MEQ IV (01:38)
[2019-01-03] MEDS: LORazepam 1 MG TAB PO/SL ×7 (03:04→22:45)
[2019-01-03] MEDS: LORazepam 1 MG TAB PO ×2 (03:05→11:47)
[2019-01-03 07:11] LABS: Abs Immature Grans 0.01 k/cumm (0.0-0.09); Absolute Basophil Count 0.01 k/cumm (0.0-0.2); Absolute Eosinophil Count 0.13 k/cumm (0.0-0.7); Absolute Monocyte Count 0.44 k/cumm (0.11-0.7); Absolute Neutrophil Count 2.22 k/cumm (1.2-6.7); Basophils % 0.2; HCT 39.5 % (36.0-46.0); Immature Grans % 0.2; Lymphocytes % 34.8; Mean Corp. HGB Concentration 32.9 g/dL (32.0-36.0); Mean Corpuscular Hemoglobin 30.7 pg (27.0-33.0); Mean Corpuscular Volume 93.2 fL (80-95); Monocytes % 10.2; Neutrophils % 51.6; Platelet Count 195 x1000/uL (130-400); RBC 4.24 m/cumm (4.00-5.20); RBC Distribution Width 14.9 % (11.7-14.6); White Blood Cell Count 4.31 k/cumm (4.4-10.8)
[2019-01-03 08:56] LABS: BUN 4 mg/dL (7-18); Chloride 107 mmol/L (98-107); Glucose 93 mg/dL (70-100); Potassium 4.4 mmol/L (3.5-5.1); Sodium 140 mmol/L (136-145)
[2019-01-03] MEDS: Pantoprazole 40 MG TABCR PO (09:07)
[2019-01-03] MEDS: Nicotine 21 MG/24 HR PATCH TD (09:07)
[2019-01-03] MEDS: Multivitamin TAB 1 TAB PO (09:08)
[2019-01-03] MEDS: chlordiazePOXIDE 25 MG CAP 50 MG PO ×3 (09:08→22:45)
[2019-01-03] MEDS: Sucralfate 1 GM TAB PO ×4 (09:08→22:45)
[2019-01-03] MEDS: Folic Acid 1 MG TAB PO (09:08)
[2019-01-03] MEDS: Thiamine 100 MG TAB PO (09:08)
[2019-01-03] MEDS: Sertraline 50 MG TAB PO (09:08)
--- NOTE | 2019-01-03 10:43 | PDOC.CMPRO ---
Care Management Progress Note S/O: CM spoke with Zahraa Shetty's continuous improvement coach regarding concerns with discharge plan to [facility]. Zahraa identified issues in her current relationship with her , she also reports the plan will be for him to transport her to [facility]. CM requested team meeting with Yamile Gilbert and Zahraa to discuss best options for transport as well as discharge date. [facility] has accepted Zahraa for tomorrow, 01/04/19, Dr. Healy reported Zahraa remains on constant monitoring and medications due to withdrawal symptoms and discharge readiness is not anticipated for tomorrow. Originally, Zahraa was accepted for 01/07/19, CM had requested to add this conversation to team meeting with Zahraa and her continuous improvement coach, Diogenes. Zahraa continues to require a good amount of emotional support; CM continues to follow. A: 38 year old female admitted to [facility] 01/01/19 for Alcohol Withdrawal P: Zahraa continues to be closely monitored and treated. She remains on IVF and medications per [facility] protocol. Zahraa reports she is looking forward to going to [facility] and has been accepted for Monday. Chip Unloader continues to follow. Zahraa plans to transport with her .
--- NOTE | 2019-01-03 10:49 | OT.INIE ---
Occupational Therapy Notes Inpatient Occupational Therapy Evaluation Date: 01/03/19 Referring Doctor:Kassidy Healy MD OT Orders: Eval and Treat Precautions: Fall, Standard PATIENT PROFILE/ADMITTING DIAGNOSIS: Pt is a 38 year old female who presented to the ER on 01/01 and was admitted to ICU with ETOH width drawal and elevated heart rate with functional mobility. Past Medical History: Medical History (Updated 01/01/19 @ 15:34 by Kassidy Healy MD) Acute pancreatitis (Acute) Alcohol abuse (Chronic) Alcoholic hepatitis (Acute) Anxiety (Chronic) Chronic pancreatitis (Chronic) DVT (deep venous thrombosis) (Inactive) Hemorrhagic pancreatitis (Resolved) History of DVT (deep vein thrombosis) (Chronic) Pancreatic pseudocyst (Chronic) Pancreatitis (Inactive) Seizure disorder (Chronic) Smoker (Acute) Thrombocytopenia (Chronic) Withdrawal seizures (Suspected) Surgical History (Updated 01/01/19 @ 15:27 by Kassidy Healy MD) H/O chest tube placement (Inactive) H/O esophagogastroduodenoscopy (Chronic) H/O LEEP (Acute) Social History/Home Situation: Pt states that she lives in a trailer with her two children 13 and 14 and her . She reports that she is (I) with all aspects of her ADLs. She notes that sometimes she has difficulty walking. 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 OT and pt discuss her routine throughout the day and she notes an inconsistency in her routine reporting that she really relies on her and children to get things done. Equipment owned/DME: Wheelchair SUBJECTIVE: Pt was lying in bed when OT arrived. She was agreeable to OT session. OBJECTIVE: General Observation: Pt is anxious but happy that she is going to [place] to (A) with her alcohol. Mental Status: A&Ox3 Pain: no c/o pain ROM: RUE AROM WNL L UE AROM WNL STRENGTH: RUE Shoulder flexion 3/5, bicep 3-/5, tricep 4/5 LUE Shoulder flexion 3/5, bicep 3-/5, tricep 4/5 FUNCTIONAL MOBILITY/ADLS: BATHING pt denies DRESSING pt denies GROOMING (I) with brushing hair in seated position TOILETING On commode (I) EATING (I) sitting on side of the bed BALANCE: Static sitting Normal Dynamic Sitting Normal Static Standing Good Dynamic Standing Good SPECIAL TESTS: Daily Activity Limitations Standardized Measure [facility] AM -PAC ?6 clicks? Daily Activity Inpatient Short Form: Raw score: 23 Standardized score: 51.12 CMS score: 15.86% INFORMED CONSENT/EDUCATION: Pt instructed in purpose of OT Consult and plan of care. ASSESSMENT: Patient is a 38-year-old female referred to occupational therapy services with diagnosis of ETOH widthdrawal and increased heart rate with functional mobility. Patient presents with clinical signs and symptoms consistent with dx. Pt was seen for OT consult only. She demonstrates increased (I) and states that she she feels much better than she did last admission. She notes that she does not feel that she needs OT services. OT is in agreement with this as pt demonstrated (I) both functionally and with ROM. AMPAC score 23, CMS score 15.86% Patient is assessed as a Low 93297 complexity based on the following: History: See Above Examination: See Above Presentation: Evolving Decision Making: AMPAC Score 23, CMS score 15.86% GOALS N/A PLAN OF CARE/TREATMENT PLAN: OT consult only. DISCHARGE RECOMMENDATIONS Pt states that the plan is for her to go to [place] to a drug and alcohol rehabilitation facility. TREATMENT TIME/MINUTES/CODES 38244, 20 minutes (08:35) [facility]
[2019-01-03] MEDS: Mylanta Suspension 30 ML CUP PO (11:46)
[2019-01-03] MEDS: Enoxaparin 40 MG/0.4 ML SYR SC (11:46)
[2019-01-03] MEDS: Loperamide 2 MG CAP 4 MG PO (11:46)
--- NOTE | 2019-01-03 13:00 | PT.INIE ---
Date of service: 01/03/19 Time of Service: 10:18 PT Notes Inpatient Physical Therapy Evaluation Date: 01/03/2019 Referring Doctor: Kassidy Healy MD, MD PT Orders: PT CONSULT: Eval/treat Precautions: Fall. Standard. Seizure-prone. Patient Profile/Admitting Diagnosis: Patient is a 38-year-old female who presented to the ED on 01/01/2019 with chief complaints of tremor, nausea, and tachycardia, and chest discomfort. Patient was diagnosed with ETOH withdrawal, hypokalemia, and hypomagnesemia. PMHX: Medical History Pancreatic pseudocyst (Chronic) Chronic pancreatitis (Chronic) Anxiety (Chronic) Withdrawal seizures (Suspected) History of DVT (deep vein thrombosis) (Chronic) Alcohol abuse (Chronic) Acute pancreatitis (Acute) Hemorrhagic pancreatitis (Resolved) DVT (deep venous thrombosis) (Inactive) Pancreatitis (Inactive) Surgical History H/O LEEP (Acute) H/O chest tube placement (Inactive) Social History/Home Situation: Patient lives with and 2 daughters ages 13 and 14 in a mobile home in [place], [place] with a ramp to enter. Patient was independent with all aspects of ADLs without the need for an assistive ambulatory device nor adaptive equipment. Patient states that she used to work as an [employer]OWER a long time ago at the [employer]. She further states that she currently relocated to [place] from [place]. Current Functional Limitations: Need for assistance with all transfer and ambulation tasks using FWW Equipment Owned/DME: Wheelchair Subjective: Patient is agreeable to a PT consultation and treatment. Patient expresses that right now she does not need physical therapy as she does not feel unstable and is able to ambulate okay. It was explained to her that PT will need to do evaluation only for today in order to document her level of mobility and safety which she is agreeable to. Objective: General Observation: Continuous pulse oximetry on left ring finger. Multiple ecchymoses found on bilateral legs and arms. Mental Status: Alert and oriented x4. Pain: 0/10 ROM: Right Upper Extremity: Shoulder Flexion WFL. Shoulder abduction WFL. Elbow flexion WFL. Wrist flexion WFL. Functional opening and closing of hand WFL. Left Upper Extremity: Shoulder Flexion WFL. Shoulder abduction WFL. Elbow flexion WFL. Wrist flexion WFL. Functional opening and closing of hand WFL. Right Lower Extremity: Hip flexion WFL. Hip abduction WFL. Knee flexion WFL. Ankle dorsiflexion WFL. Ankle plantarflexion WFL. Left Lower Extremity: Hip flexion WFL. Hip abduction WFL. Knee flexion WFL. Ankle dorsiflexion WFL. Ankle plantarflexion WFL. Strength: Right Upper Extremity: Shoulder flexors 5/5. Shoulder abductors 5/5. Elbow flexors 5/5. Elbow extensors 5/5. Supervisor Print Line strong. Left Upper Extremity: Shoulder flexors 5/5. Shoulder abductors 5/5. Elbow flexors 5/5. Elbow extensors 5/5. Supervisor Print Line strong. Right Lower Extremity: Hip flexors 5/5. Hip abductors 4/5. Knee flexors 5/5. Knee extensors 4/5. Ankle dorsiflexors 5/5. Ankle plantarflexors 5/5. Left Lower Extremity:Hip flexors 5/5. Hip abductors 4/5. Knee flexors 5/5. Knee extensors 4/5. Ankle dorsiflexors 5/5. Ankle plantarflexors 5/5. Sensation: Intact test to pain and pressure on bilateral lower extremities Bed Mobility/Transfers: Rolling I Supine to sit I Sit to supine I Sit to stand min I Stand to sit I Bed to chair I Chair to bed I Gait: Patient was able to tolerate 50 feet of level surface ambulation using no assistive ambulatory device requiring supervision of this PT and IV pole management. Increase in anxiety observed in patient during activity requiring frequent reassurances. No remarkable gait gait deviation observed Static Sitting: Good Dynamic Sitting: Good Static Standing: Good Dynamic Standing: Good Special Tests: Mobility Limitations Standardized Measure [facility]-PAC 6 clicks Basic Mobility Inpatient Short Form: Raw Score: 24 [facility] Score: 11% deficit Informed Consent/Education: Patient instructed in purpose of PT consult. Assessment: Patient is a 38-year-old female diagnosed with ETOH withdrawal, hypokalemia, and hypomagnesemia. Patient presents with clinical signs and symptoms consistent with current/admitting diagnoses that have resulted to mobility limitations, gait instability, generalized weakness, and impairment of motor control as demonstrated by the following impairment level findings: 1. Impaired activity tolerance Impairments are contributing to the following functional limitations: 1. Increase completion time for mobility ADL performance Patient is assessed as a 28586 moderate complexity based on the following: History: 38-year-old female with ETOH withdrawal, hypokalemia, and hypomagnesemia plan to be transferred to a rehabilitation facility to manage chronic alcoholism Examination: Underlying impairments and functional limitations as noted above Presentation:Evolving Decision Makin moderate complexity Plan of Care/Treatment Plan: Patient is evaluation only and is awaiting transfer to a rehabilitation facility to manage chronic alcoholism DISCHARGE RECOMMENDATIONS: None at this time. TREATMENT CODE/TIME: 72463 x 29 minutes beginning at 10:18 AM. Thank you very much for this referral. Loretta Blcak PT, DPT, CLT [facility]
[2019-01-03] MEDS: Normal Saline 1,000 ML 125 ML IV (15:58)
--- NOTE | 2019-01-03 16:00 | DI.RAD_ITS ---
SYMPTOM/DIAGNOSIS: PRODUCTIVE COUGH CHEST X-RAY: AP view of the chest was obtained. Comparison 12/03/18 The heart is normal in size. The lungs are clear. The mediastinal structures and pleura appear intact. CONCLUSION: Normal chest.
[2019-01-03] MEDS: Normal Saline Flush 10 ML SYR IVP (16:05)
--- NOTE | 2019-01-03 16:11 | PGE_ITS ---
Date of Service Date of service: 01/03/19 Time of Service: 16:11 Assessment and Plan (1) Alcohol withdrawal: Current visit: No Status: Acute Continue to monitor in ICU with ativan IV/PO per CIWA as well as scheduled librium. Increase librium to 50 mg IV q6hrs. Patient is not medically cleared to go to [facility] yet and continues to require monitoring in the ICU. Provide vitamins, IVF. Correct and monitor lytes. High risk for withdrawal seizures (2) Hypokalemia: Current visit: No Status: Resolved Monitor (3) Chronic pancreatitis: Current visit: No Status: Chronic At baseline. Tolerating regular diet (4) Epigastric pain: Current visit: No Status: Resolved Appears to be at baseline. Continue PPI + carafate. Prn mylanta (5) Smoker: Current visit: No Status: Acute Advised to quit. Provide replacement therapy (6) Hypomagnesemia: Current visit: Yes Status: Resolved Monitor (7) Urinary incontinence: Current visit: Yes Status: Acute Due to autonomic instability or urge incontinence. No uti or urinary retention. (8) Ambulatory dysfunction: Current visit: Yes Status: Acute Continue to work with PT (9) Productive cough: Current visit: Yes Status: Acute New. Check CXR/sputum c&S. Empiric levofloxacin (10) DVT prophylaxis: Current visit: Yes Status: Acute lovenox (11) Discharge planning issues: Current visit: No Status: Acute Full code Subjective Interval history since last seen: Complains of cough that started to be produ ctive of green sputum. Hearing a radio out of her right ear - this comes and goes, it wasn't bothering her as much yesterday. Denies dizziness, chest pain, shortness of breath, nausea, vomiting. Diarrhea resolved. Continues to have her chronic epigastric pain. Remains in the ICU. Exam Narrative Exam Narrative: General: anxious female, tremulous, sitting up in bed. HEENT: Atraumatic, normocephalic, EOMI, MMM Heart; RRR, tachycardic Lungs: coarse breath sounds B GI: abdomen is soft, tender in epigastrium, nondistended Extremities: no e/c/c BLE's Objective Objective Clinical Data: Abnormal lab results 01/03/19 01/03/19 Range/Units 06:30 06:30 WBC 4.31 L (4.4-10.8) k/cumm RDW 14.9 H (11.7-14.6) % BUN 4 L (7-18) mg/dL Vital Signs Temperature 36.7 C 01/03/19 11:45 Temperature Source Temporal Artery Scan 01/03/19 11:45 Pulse 116 H 01/03/19 10:34 Pulse 116 H 01/03/19 11:00 Respiratory Rate 26 H 01/03/19 11:00 Respiratory Effort 01/03/19 11:45 Respiratory Depth Normal 01/03/19 11:45 Respiratory Pattern Normal 01/03/19 11:45 Blood Pressure 133/87 01/03/19 10:34 Blood Pressure Mean 98 01/03/19 10:34 Blood Pressure Position Sitting 01/02/19 15:55 Pulse Oximetry 97 01/03/19 08:45 Oxygen Delivery Method Room Air 01/03/19 08:45 Oxygen Flow Rate 0 01/03/19 08:45 Pain Level 5 01/03/19 11:45 Intake & Output 01/02/19 01/03/19 01/03/19 23:59 11:59 23:59 Intake Total 2410 / 6367.083 4339.583 / 4789.583 450 / 4789.583 Output Total 3705 / 4905 3370 / 3370 Balance -1295 / 1462.083 969.583 / 1419.583 450 / 1419.583 Weight 53.2 kg Intake: IV 1000 / 2977.083 1939.583 / 1939.583 Oral 1410 / 3390 2400 / 2850 450 / 2850 Output: Urine 3500 / 4700 3250 / 3250 Post Void Residual 205 / 205 120 / 120 Other: Urine Color Yellow Pale Yellow Urine Appearance Clear Clear Urine Odor Normal Normal Comment Mixed with stool. The patient has been having issues with some incontinence at home Stool Occult Blood Negative Stool Size Small Large Stool Characteristics Brown Soft Brown Voiding Methods Bedside Commode Bedside Commode Laboratory Results WBC 4.31 k/cumm (4.4-10.8) L 01/03/19 06:30 RBC 4.24 m/cumm (4.00-5.20) 01/03/19 06:30 Hgb 13.0 g/dL (12.0-15.5) 01/03/19 06:30 Hct 39.5 % (36.0-46.0) 01/03/19 06:30 MCV 93.2 fL (80-95) 01/03/19 06:30 MCH 30.7 pg (27.0-33.0) 01/03/19 06:30 MCHC 32.9 g/dL (32.0-36.0) 01/03/19 06:30 RDW 14.9 % (11.7-14.6) H 01/03/19 06:30 Plt Count 195 x1000/uL (130-400) 01/03/19 06:30 MPV 10.0 fL (8.0-11.0) 01/03/19 06:30 Immature Gran % 0.2 01/03/19 06:30 51.6 01/03/19 06:30 34.8 01/03/19 06:30 10.2 01/03/19 06:30 3.0 01/03/19 06:30 0.2 01/03/19 06:30 Absolute Neutrophils 2.22 k/cumm (1.2-6.7) 01/03/19 06:30 Absolute Lymphocytes 1.50 k/cumm (1.2-3.4) 01/03/19 06:30 Absolute Monocytes 0.44 k/cumm (0.11-0.7) 01/03/19 06:30 Absolute Eosinophils 0.13 k/cumm (0.0-0.7) 01/03/19 06:30 Absolute Basophils 0.01 k/cumm (0.0-0.2) 01/03/19 06:30 Sodium 140 mmol/L (136-145) 01/03/19 06:30 Potassium 4.4 mmol/L (3.5-5.1) 01/03/19 06:30 Chloride 107 mmol/L (98-107) 01/03/19 06:30 Carbon Dioxide 23.0 mmol/L (21.0-32.0) 01/03/19 06:30 10.0 mmol/L (3-11) 01/03/19 06:30 BUN 4 mg/dL (7-18) L 01/03/19 06:30 0.60 mg/dL (0.55-1.02) 01/03/19 06:30 >= 60.00 (mL/min/1.73m2) 01/03/19 06:30 Glucose 93 mg/dL (70-100) 01/03/19 06:30 Calcium 9.0 mg/dL (8.5-10.1) 01/03/19 06:30 Magnesium 2.0 mg/dL (1.8-2.4) 01/03/19 06:30 0.6 mg/dL (0.2-1.0) 01/01/19 11:02 AST 28 U/L (15-37) 01/01/19 11:02 ALT 16 U/L (12-78) 01/01/19 11:02 234 U/L (46-116) H 01/01/19 11:02 < 0.05 ng/mL (0.00-0.06) 01/01/19 11:02 7.6 g/dL (6.4-8.2) 01/01/19 11:02 3.5 g/dL (3.4-5.0) 01/01/19 11:02 31 U/L (73-393) L 01/01/19 11:02 Yellow (Yellow) 01/02/19 13:15 Clear (Clear) 01/02/19 13:15 7.0 (5-8) 01/02/19 13:15 Ur Specific [place] 1.010 (1.005-1.025) 01/02/19 13:15 Negative mg/dL (Negative) 01/02/19 13:15 Negative mg/dL (Negative) 01/02/19 13:15 Negative (Negative) 01/02/19 13:15 Negative (Negative) 01/02/19 13:15 Negative (Negative) 01/02/19 13:15 0.2 EU/dL (Up TO 0.2) 01/02/19 13:15 Ur Leukocyte Esterase Negative (Negative) 01/02/19 13:15 Negative mg/dL (Negative) 01/02/19 13:15
[2019-01-03] MEDS: Promethazine 25 MG TAB PO (16:26)
--- NOTE | 2019-01-03 16:33 | DI.VRAD_ITS ---
EXAM: XR Chest, 1 View EXAM DATE/TIME: 01/03/2019 4:10 PM CLINICAL HISTORY: 38 years old, female; Cough; Patient HX: Withdrawal from ETOH TECHNIQUE: Imaging protocol: XR of the chest, 1 view. COMPARISON: SC XR PORTABLE CHEST AP 12/03/2018 7:37 AM FINDINGS: Lungs: Unremarkable. No consolidation. Pleural space: Unremarkable. No pleural effusion. No pneumothorax. Heart/Mediastinum: Unremarkable. No cardiomegaly. Bones/joints: Unremarkable. IMPRESSION: No acute findings. Dictated and Authenticated by: Ernesto Olivas MD. Ordering:JHON Yi MD
[2019-01-03] MEDS: levoFLOXacin 750 MG/150 ML BAG 100 MG IVPB (18:10)
[2019-01-03] MEDS: Acetaminophen 500 MG TAB 1000 MG PO (19:00)
[2019-01-03] MEDS: Ketorolac 30 MG/ML VIAL IVP (19:01)
[2019-01-03] MEDS: Trimethobenzamide 200 MG/2 ML VIAL IM (19:03)
[2019-01-03] MEDS: guaiFENesin 600 MG TABCR PO (19:20)
[2019-01-03] MEDS: LORazepam 2 MG/ML VIAL IVP (23:59)
[2019-01-04] VITALS (22 sets, daily range): BP systolic 117–134; BP diastolic 72–82; PULSE 84–112; RESP 11–23; TEMP 36.3–37.2; O2SAT 93–100
[2019-01-04] MEDS: Normal Saline 1,000 ML 125 ML IV ×3 (02:39→16:01)
[2019-01-04] MEDS: LORazepam 1 MG TAB PO/SL ×6 (05:28→22:31)
[2019-01-04] MEDS: chlordiazePOXIDE 25 MG CAP 50 MG PO ×4 (05:28→21:46)
[2019-01-04 07:39] LABS: Abs Immature Grans 0.02 k/cumm (0.0-0.09); Absolute Eosinophil Count 0.12 k/cumm (0.0-0.7); Absolute Lymphocyte Count 1.44 k/cumm (1.2-3.4); Absolute Monocyte Count 0.36 k/cumm (0.11-0.7); Absolute Neutrophil Count 2.03 k/cumm (1.2-6.7); HCT 36.7 % (36.0-46.0); HGB 11.8 g/dL (12.0-15.5); Immature Grans % 0.5; Lymphocytes % 36.3; Mean Corp. HGB Concentration 32.2 g/dL (32.0-36.0); Mean Corpuscular Hemoglobin 29.9 pg (27.0-33.0); Mean Corpuscular Volume 92.9 fL (80-95); Mean Platelet Volume 10.5 fL (8.0-11.0); Monocytes % 9.1; Neutrophils % 51.1; Platelet Count 171 x1000/uL (130-400); RBC 3.95 m/cumm (4.00-5.20); RBC Distribution Width 14.5 % (11.7-14.6); White Blood Cell Count 3.97 k/cumm (4.4-10.8)
[2019-01-04] MEDS: Sucralfate 1 GM TAB PO ×4 (08:05→21:46)
[2019-01-04] MEDS: Pantoprazole 40 MG TABCR PO (08:05)
--- NOTE | 2019-01-04 08:06 | PDOC.CMPRO ---
Care Management Progress Note S/O: Zahraa was sitting up in bed when CM met with her. She reported feeling better and ambulating in the room with PT who cleared her physically to ambulate independently. Zahraa was looking forward to transitioning out to the MED/SURG floor. A: 38 year old female admitted to [facility] 01/01/19 for Alcohol Withdrawal P: Zahraa continues to be closely monitored and treated. She remains on IVF and medications per [facility] protocol. Zahraa reports she is looking forward to going to [facility] and has been accepted for Monday. Clamp Jig Assembler continues to follow. Zahraa plans to transport with her .
[2019-01-04 08:12] LABS: Anion Gap 11.2 mmol/L (3-11); BUN 6 mg/dL (7-18); CO2 21.8 mmol/L (21.0-32.0); CREATININE 0.72 mg/dL (0.55-1.02); Calcium 8.3 mg/dL (8.5-10.1); Chloride 107 mmol/L (98-107); Glucose 120 mg/dL (70-100); Magnesium 1.5 mg/dL (1.8-2.4); Potassium 3.7 mmol/L (3.5-5.1); Sodium 140 mmol/L (136-145)
--- NOTE | 2019-01-04 08:30 | PGE_ITS ---
Date of Service Date of service: 01/04/19 Time of Service: 08:30 Assessment and Plan (1) Alcohol withdrawal: Current visit: No Status: Acute Improving; CIWA scores are lower. Continue current doses of librium with PO ativan per CIWA. Ok to transfer to [facility] with tele. Patient is not medically cleared to go to [facility] yet. Provide vitamins, IVF. Correct and monitor lytes. High risk for withdrawal seizures (2) Hypokalemia: Current visit: No Status: Resolved Monitor (3) Chronic pancreatitis: Current visit: No Status: Chronic At baseline. Tolerating regular diet (4) Epigastric pain: Current visit: No Status: Resolved Appears to be at baseline. Continue PPI + carafate. Prn mylanta (5) Smoker: Current visit: No Status: Acute Advised to quit. Provide replacement therapy (6) Hypomagnesemia: Current visit: Yes Status: Resolved Monitor (7) Urinary incontinence: Current visit: Yes Status: Acute Due to autonomic instability or urge incontinence. No uti or urinary retention. (8) Ambulatory dysfunction: Current visit: Yes Status: Acute Continue to work with PT (9) Productive cough: Current visit: Yes Status: Acute Due to acute bronchitis. Improving. Empiric levofloxacin. (10) DVT prophylaxis: Current visit: Yes Status: Acute lovenox (11) Discharge planning issues: Current visit: No Status: Acute Full code Subjective Interval history since last seen: Scoring 13 - 19 overnight, 12 this morning on CIWA. The patient states her cough is better. Complains of slight dizziness and nausea. I just don't feel good today. Denies shortness of breath. Epigastric pain is only a little bit today. Exam Narrative Exam Narrative: General: anxious female, tremulous, sitting up in bed. HEENT: Atraumatic, normocephalic, EOMI, MMM Heart; RRR, tachycardic Lungs: coarse breath sounds B GI: abdomen is soft, tender in epigastrium, nondistended Extremities: no e/c/c BLE's Objective Objective Clinical Data: Abnormal lab results 01/03/19 01/04/19 01/04/19 Range/Units 06:30 06:35 06:35 WBC 3.97 L (4.4-10.8) k/cumm RBC 3.95 L (4.00-5.20) m/cumm Hgb 11.8 L (12.0-15.5) g/dL Anion Gap 11.2 H (3-11) mmol/L BUN 4 L 6 L (7-18) mg/dL Glucose 120 H (70-100) mg/dL Calcium 8.3 L (8.5-10.1) mg/dL Magnesium 1.5 L (1.8-2.4) mg/dL Vital Signs Temperature 37.2 C 01/04/19 05:15 Temperature Source Temporal Artery Scan 01/04/19 05:15 Pulse 92 H 01/04/19 05:25 Pulse 105 H 01/04/19 00:30 Respiratory Rate 22 01/04/19 00:30 Respiratory Effort Non-Labored 01/04/19 05:15 Respiratory Depth Normal 01/04/19 05:15 Respiratory Pattern Normal 01/04/19 05:15 Blood Pressure 123/79 01/04/19 05:25 Blood Pressure Mean 88 01/04/19 05:25 Blood Pressure Position Sitting 01/03/19 16:00 Pulse Oximetry 99 01/03/19 20:30 Oxygen Delivery Method Room Air 01/04/19 05:15 Oxygen Flow Rate 0 01/04/19 05:15 Pain Level 4 01/04/19 00:40 Intake & Output 01/03/19 01/03/19 01/04/19 11:59 23:59 11:59 Intake Total 4339.583 / 7589.583 3250 / 7589.583 350 / 350 Output Total 3370 / 6520 3150 / 6520 1500 / 1500 Balance 969.583 / 1069.583 100 / 1069.583 -1150 / -1150 Weight 53.2 kg 54.2 kg Intake: IV 1939.583 / 2939.583 1000 / 2939.583 Oral 2400 / 4650 2250 / 4650 350 / 350 Output: Urine 3250 / 6400 3150 / 6400 1500 / 1500 Post Void Residual 120 / 120 Other: Urine Color Pale Yellow Light Estefany Yellow Urine Appearance Clear Clear Clear Urine Odor Normal None Normal Comment The patient has been having issues with some incontinence at home Stool Occult Blood Negative Stool Size Large Stool Characteristics Soft Brown Voiding Methods Bedside Commode Bedside Commode Bedside Commode Laboratory Results WBC 3.97 k/cumm (4.4-10.8) L 01/04/19 06:35 RBC 3.95 m/cumm (4.00-5.20) L 01/04/19 06:35 Hgb 11.8 g/dL (12.0-15.5) L 01/04/19 06:35 Hct 36.7 % (36.0-46.0) 01/04/19 06:35 MCV 92.9 fL (80-95) 01/04/19 06:35 MCH 29.9 pg (27.0-33.0) 01/04/19 06:35 MCHC 32.2 g/dL (32.0-36.0) 01/04/19 06:35 RDW 14.5 % (11.7-14.6) 01/04/19 06:35 Plt Count 171 x1000/uL (130-400) 01/04/19 06:35 MPV 10.5 fL (8.0-11.0) 01/04/19 06:35 Immature Gran % 0.5 01/04/19 06:35 51.1 01/04/19 06:35 36.3 01/04/19 06:35 9.1 01/04/19 06:35 3.0 01/04/19 06:35 0.0 01/04/19 06:35 Absolute Neutrophils 2.03 k/cumm (1.2-6.7) 01/04/19 06:35 Absolute Lymphocytes 1.44 k/cumm (1.2-3.4) 01/04/19 06:35 Absolute Monocytes 0.36 k/cumm (0.11-0.7) 01/04/19 06:35 Absolute Eosinophils 0.12 k/cumm (0.0-0.7) 01/04/19 06:35 Absolute Basophils 0.00 k/cumm (0.0-0.2) 01/04/19 06:35 Sodium 140 mmol/L (136-145) 01/04/19 06:35 Potassium 3.7 mmol/L (3.5-5.1) 01/04/19 06:35 Chloride 107 mmol/L (98-107) 01/04/19 06:35 Carbon Dioxide 21.8 mmol/L (21.0-32.0) 01/04/19 06:35 11.2 mmol/L (3-11) H 01/04/19 06:35 BUN 6 mg/dL (7-18) L 01/04/19 06:35 0.72 mg/dL (0.55-1.02) 01/04/19 06:35 >= 60.00 (mL/min/1.73m2) 01/04/19 06:35 Glucose 120 mg/dL (70-100) H 01/04/19 06:35 Calcium 8.3 mg/dL (8.5-10.1) L 01/04/19 06:35 Magnesium 1.5 mg/dL (1.8-2.4) L 01/04/19 06:35 0.6 mg/dL (0.2-1.0) 01/01/19 11:02 AST 28 U/L (15-37) 01/01/19 11:02 ALT 16 U/L (12-78) 01/01/19 11:02 234 U/L (46-116) H 01/01/19 11:02 < 0.05 ng/mL (0.00-0.06) 01/01/19 11:02 7.6 g/dL (6.4-8.2) 01/01/19 11:02 3.5 g/dL (3.4-5.0) 01/01/19 11:02 31 U/L (73-393) L 01/01/19 11:02 Yellow (Yellow) 01/02/19 13:15 Clear (Clear) 01/02/19 13:15 7.0 (5-8) 01/02/19 13:15 Ur Specific [place] 1.010 (1.005-1.025) 01/02/19 13:15 Negative mg/dL (Negative) 01/02/19 13:15 Negative mg/dL (Negative) 01/02/19 13:15 Negative (Negative) 01/02/19 13:15 Negative (Negative) 01/02/19 13:15 Negative (Negative) 01/02/19 13:15 0.2 EU/dL (Up TO 0.2) 01/02/19 13:15 Ur Leukocyte Esterase Negative (Negative) 01/02/19 13:15 Negative mg/dL (Negative) 01/02/19 13:15
[2019-01-04] MEDS: Nicotine 21 MG/24 HR PATCH TD (09:00)
[2019-01-04] MEDS: Sertraline 50 MG TAB PO (09:00)
[2019-01-04] MEDS: Multivitamin TAB 1 TAB PO (09:00)
[2019-01-04] MEDS: guaiFENesin 600 MG TABCR PO ×2 (09:01→19:53)
[2019-01-04] MEDS: Folic Acid 1 MG TAB PO (09:01)
[2019-01-04] MEDS: Thiamine 100 MG TAB PO (09:01)
[2019-01-04] MEDS: MAGNESIUM SULFATE 4 GM/100 ML BAG IVPB (10:23)
[2019-01-04] MEDS: Enoxaparin 40 MG/0.4 ML SYR SC (12:34)
--- NOTE | 2019-01-04 15:10 | CHAPLAIN ---
Laina was resting in bed when I visited. She told me about her plans to go directly to [facility] from [facility] when she is discharged, likely on Monday. She said she is relieved to have a plan and to be going from here. Her parents have sent her brown and a abdulaziz bear and she seemed appreciative of that. She also has a abdulaziz bear that her daughter loaned to her, and she said that is important to her.
[2019-01-04] MEDS: levoFLOXacin 750 MG/150 ML BAG 100 MG IVPB (16:10)
--- NOTE | 2019-01-04 18:44 | NUR.NOTE ---
Nursing Note: Pt to MS floor at 1845 from ICU. Report from SEED POTATO ARRANGER Hayley at 1835. Ambulated independently; steady gait noted. A&Ox3. VSS. IV infiltrated; removed and pt is in need of a new one for IV fluids; NS@125/hr. Pt's family at bedside. Pt oriented to MS floor, call smith, BR, etc. Call smith within reach. RN will give report to oncoming shift and continue to monitor.
[2019-01-04] MEDS: Acetaminophen 325 MG TAB PO ×2 (20:00)
[2019-01-04] MEDS: Promethazine 25 MG TAB PO ×2 (21:47)
[2019-01-05] VITALS (15 sets, daily range): BP systolic 100–118; BP diastolic 63–80; PULSE 81–107; RESP 16–18; TEMP 36.4–37.1; O2SAT 97–100
[2019-01-05] MEDS: Normal Saline 1,000 ML 125 ML IV ×3 (03:11→20:45)
[2019-01-05] MEDS: LORazepam 1 MG TAB PO/SL ×6 (03:37→20:47)
[2019-01-05] MEDS: chlordiazePOXIDE 25 MG CAP 50 MG PO ×4 (04:42→22:04)
[2019-01-05] MEDS: Multivitamin TAB 1 TAB PO (07:48)
[2019-01-05] MEDS: guaiFENesin 600 MG TABCR PO ×2 (07:48→20:45)
[2019-01-05] MEDS: Sertraline 50 MG TAB PO (07:48)
[2019-01-05] MEDS: Sucralfate 1 GM TAB PO ×4 (07:48→22:04)
[2019-01-05] MEDS: Pantoprazole 40 MG TABCR PO (07:48)
[2019-01-05] MEDS: Thiamine 100 MG TAB PO (07:48)
[2019-01-05] MEDS: Folic Acid 1 MG TAB PO (07:48)
[2019-01-05] MEDS: Nicotine 21 MG/24 HR PATCH TD (07:51)
[2019-01-05 08:26] LABS: Abs Immature Grans 0.03 k/cumm (0.0-0.09); Absolute Basophil Count 0.01 k/cumm (0.0-0.2); Absolute Eosinophil Count 0.11 k/cumm (0.0-0.7); Absolute Lymphocyte Count 1.48 k/cumm (1.2-3.4); Absolute Monocyte Count 0.57 k/cumm (0.11-0.7); Absolute Neutrophil Count 2.69 k/cumm (1.2-6.7); Basophils % 0.2; Eosinophils % 2.2; HGB 12.2 g/dL (12.0-15.5); Immature Grans % 0.6; Lymphocytes % 30.3; Mean Corpuscular Hemoglobin 30.8 pg (27.0-33.0); Mean Corpuscular Volume 93.4 fL (80-95); Mean Platelet Volume 10.6 fL (8.0-11.0); Monocytes % 11.7; Platelet Count 164 x1000/uL (130-400); RBC 3.96 m/cumm (4.00-5.20); RBC Distribution Width 14.7 % (11.7-14.6); White Blood Cell Count 4.89 k/cumm (4.4-10.8)
[2019-01-05 08:32] LABS: Anion Gap 8.9 mmol/L (3-11); BUN 5 mg/dL (7-18); CO2 25.1 mmol/L (21.0-32.0); CREATININE 0.65 mg/dL (0.55-1.02); Chloride 106 mmol/L (98-107); Glucose 93 mg/dL (70-100); Magnesium 1.7 mg/dL (1.8-2.4); Potassium 3.8 mmol/L (3.5-5.1); Sodium 140 mmol/L (136-145)
[2019-01-05] MEDS: Magnesium Oxide 400 MG TAB 800 MG PO (10:41)
[2019-01-05] MEDS: Potassium Chloride 20 MEQ TABCR PO (10:41)
[2019-01-05] MEDS: Loperamide 2 MG CAP PO (10:50)
[2019-01-05] MEDS: Enoxaparin 40 MG/0.4 ML SYR SC (12:21)
[2019-01-05] MEDS: levoFLOXacin 750 MG/150 ML BAG 100 MG IVPB (16:04)
--- NOTE | 2019-01-05 17:28 | CMPROGNOTE_ITS ---
Care Management Progress Note S/O: Zahraa was sitting up in bed eating her supper. She reported feeling better and looking forward to going to [facility]. A: 38 year old female admitted to [facility] 01/01/19 for Alcohol Withdrawal P: Zahraa continues to be closely monitored and treated. She remains on IVF and medications per [facility] protocol. Zahraa reports she is looking forward to going to [facility] and has been accepted for Sunday 01/07. Roll Picker continues to follow. Zahraa plans to transport with her .
--- NOTE | 2019-01-05 17:28 | PDOC.CMPRO ---
Care Management Progress Note S/O: Zahraa was sitting up in bed eating her supper. She reported feeling better and looking forward to going to [facility]. A: 38 year old female admitted to [facility] 01/01/19 for Alcohol Withdrawal P: Zahraa continues to be closely monitored and treated. She remains on IVF and medications per [facility] protocol. Zahraa reports she is looking forward to going to [facility] and has been accepted for Sunday 01/07. Parts Counterperson continues to follow. Zahraa plans to transport with her .
--- NOTE | 2019-01-05 18:48 | W.PM.PROGNOT ---
Date of Service Date of service: 01/05/19 Time of Service: 18:51 Assessment and Plan (1) Alcohol withdrawal: Current visit: No Status: Acute Patient has a definitive history of EtOH abuse, but with questionable withdrawl and seizure history as previously documented. She is hemodynamically stable, not hypertensive, non-diaphoretic, and not tachycardic unless ambulating. However, she is scoring on CIWA subjectively. - Continue CIWA protocol. - Begin titration of Librium tomorrow. - Not yet medically cleared for discharge to [facility] for rehab. (2) Chronic pancreatitis: Current visit: No Status: Chronic At baseline and tolerating diet. Pseudocyst has been drained. (3) Productive cough: Current visit: Yes Status: Acute Potential bronchitis by history, with negative CXR and sputum culture unrevealing. Discontinue high dose Levofloxacin, and initiate PO lower dosed Levo for potential Bronchitis. (4) DVT prophylaxis: Current visit: Yes Status: Acute SC Lovenox. (5) Discharge planning issues: Current visit: No Status: Acute Planned discharge to [facility] For acute Alcohol Rehab on 01/07/2019. Subjective Interval history since last seen: 38-year-old woman with a prior history of alcohol abuse, history of Hemorrhagic Pancreatitis, and a Pancreatic Pseudocyst s/p recent drainage, admitted from [facility] Emergency Department on 01/01 with a diagnosis of acute EtOH Withdrawl. Mrs. Robin has a past medical history significant for EtOH abuse and prior hemorrhagic pancreatitis leading to hospitalization in 2013 in [place]. She went on to develop a hemothorax and collapsed lung, discovery of a large Pancreatic Pseudocyst, and development of a likely provoked DVT in the setting of an acute hospitalization at that time. Following that she has had what appears to be chronic pancreatitis, with continued alcohol abuse, described as upwards of 7 24oz beers daily. She has also undergone recent drainage of the pseudocyst at [facility]. She also has a history of 'withdrawl seizures', described as an unusual episode of syncope with potential shaking as an outpatient previously, prompting a lorazepam taper prescribed by the ED doctor involved in her care. She reported 6-7 prior epsodes of this while living in [place], and had a Repeat episode during her hospitalization in September, with patient able to call nursing for help during the episode, fully conversant and without a post-ictal state following - all fully witnessed by the attending on service. Her other history includes anxiety and prior HCAP. She presented originally to the ED complaining of an elevated Heart Rate in the 150's - she was originally seen the day prior for CP and anxiety, and discharged home. She was referred for admission for potential alcohol withdrawl. This morning the patient appears stable. No overnight events repoted. Remains afebrile. Exam Narrative Exam Narrative: General: Patient appears comfortable, AAOX3, NAD Neck: Supple CV: Regular, nontachycardic, S1S2, No rubs, murmurs, or gallops. Pulmonary: Clear to auscultation bilaterally, no crackles, wheezing, or rhonchi Abdomen: + Bowel Sounds, soft, nontender, nondistended Vascular: No lower extremity edema Psych: Normal mood and affect. Objective Objective Clinical Data: Abnormal lab results 01/05/19 01/05/19 Range/Units 07:49 07:49 RBC 3.96 L (4.00-5.20) m/cumm RDW 14.7 H (11.7-14.6) % BUN 5 L (7-18) mg/dL Magnesium 1.7 L (1.8-2.4) mg/dL Vital Signs Temperature 37.1 C 01/05/19 17:30 Temperature Source Tympanic 01/05/19 17:30 Pulse 88 01/05/19 17:30 Pulse Rhythm Regular 01/04/19 19:50 Pulse 91 H 01/04/19 16:10 Respiratory Rate 17 01/05/19 17:30 Respiratory Effort 01/05/19 13:59 Respiratory Depth Normal 01/05/19 13:59 Respiratory Pattern Normal 01/05/19 13:59 Blood Pressure 113/76 01/05/19 17:30 Blood Pressure Mean 85 01/04/19 16:10 Blood Pressure Position Sitting 01/04/19 12:28 Pulse Oximetry 99 01/05/19 17:30 Oxygen Delivery Method Room Air 01/05/19 17:30 Oxygen Flow Rate 0 01/05/19 17:30 Pain Level 0 01/05/19 17:30 Comment 01/05/19 10:00 Intake & Output 01/04/19 01/05/19 01/05/19 23:59 11:59 23:59 Intake Total 2648.083 / 4921.833 2604.166 / 3804.166 1200 / 3804.166 Output Total 6000 / 7500 2105 / 4705 2600 / 4705 Balance -3351.917 / -2578.167 499.166 / -900.834 -1400 / -900.834 Weight 54.9 kg Intake: IV 1228.083 / 2071.833 1754.166 / 1754.166 Oral 1420 / 2850 850 / 0 1200 / 0 Output: Urine 6000 / 7500 2105 / 4705 2600 / 4705 Other: Urine Color Yellow Pale Pale Yellow Urine Appearance Clear Clear Clear Urine Odor Normal Normal None Comment mixed with stool Stool Occult Blood Negative Stool Size Copious Moderate Moderate Stool Characteristics Soft Soft Soft Formed Voiding Methods Toilet Toilet Toilet Laboratory Results WBC 4.89 k/cumm (4.4-10.8) 01/05/19 07:49 RBC 3.96 m/cumm (4.00-5.20) L 01/05/19 07:49 Hgb 12.2 g/dL (12.0-15.5) 01/05/19 07:49 Hct 37.0 % (36.0-46.0) 01/05/19 07:49 MCV 93.4 fL (80-95) 01/05/19 07:49 MCH 30.8 pg (27.0-33.0) 01/05/19 07:49 MCHC 33.0 g/dL (32.0-36.0) 01/05/19 07:49 RDW 14.7 % (11.7-14.6) H 01/05/19 07:49 Plt Count 164 x1000/uL (130-400) 01/05/19 07:49 MPV 10.6 fL (8.0-11.0) 01/05/19 07:49 Immature Gran % 0.6 01/05/19 07:49 55.0 01/05/19 07:49 30.3 01/05/19 07:49 11.7 01/05/19 07:49 2.2 01/05/19 07:49 0.2 01/05/19 07:49 Absolute Neutrophils 2.69 k/cumm (1.2-6.7) 01/05/19 07:49 Absolute Lymphocytes 1.48 k/cumm (1.2-3.4) 01/05/19 07:49 Absolute Monocytes 0.57 k/cumm (0.11-0.7) 01/05/19 07:49 Absolute Eosinophils 0.11 k/cumm (0.0-0.7) 01/05/19 07:49 Absolute Basophils 0.01 k/cumm (0.0-0.2) 01/05/19 07:49 Sodium 140 mmol/L (136-145) 01/05/19 07:49 Potassium 3.8 mmol/L (3.5-5.1) 01/05/19 07:49 Chloride 106 mmol/L (98-107) 01/05/19 07:49 Carbon Dioxide 25.1 mmol/L (21.0-32.0) 01/05/19 07:49 8.9 mmol/L (3-11) 01/05/19 07:49 BUN 5 mg/dL (7-18) L 01/05/19 07:49 0.65 mg/dL (0.55-1.02) 01/05/19 07:49 >= 60.00 (mL/min/1.73m2) 01/05/19 07:49 Glucose 93 mg/dL (70-100) 01/05/19 07:49 Calcium 9.0 mg/dL (8.5-10.1) 01/05/19 07:49 Magnesium 1.7 mg/dL (1.8-2.4) L 01/05/19 07:49 0.6 mg/dL (0.2-1.0) 01/01/19 11:02 AST 28 U/L (15-37) 01/01/19 11:02 ALT 16 U/L (12-78) 01/01/19 11:02 234 U/L (46-116) H 01/01/19 11:02 < 0.05 ng/mL (0.00-0.06) 01/01/19 11:02 7.6 g/dL (6.4-8.2) 01/01/19 11:02 3.5 g/dL (3.4-5.0) 01/01/19 11:02 31 U/L (73-393) L 01/01/19 11:02 Yellow (Yellow) 01/02/19 13:15 Clear (Clear) 01/02/19 13:15 7.0 (5-8) 01/02/19 13:15 Ur Specific [place] 1.010 (1.005-1.025) 01/02/19 13:15 Negative mg/dL (Negative) 01/02/19 13:15 Negative mg/dL (Negative) 01/02/19 13:15 Negative (Negative) 01/02/19 13:15 Negative (Negative) 01/02/19 13:15 Negative (Negative) 01/02/19 13:15 0.2 EU/dL (Up TO 0.2) 01/02/19 13:15 Ur Leukocyte Esterase Negative (Negative) 01/02/19 13:15 Negative mg/dL (Negative) 01/02/19 13:15
[2019-01-05] MEDS: Promethazine 25 MG TAB PO (18:51)
[2019-01-06] VITALS (8 sets, daily range): BP systolic 110–123; BP diastolic 69–75; PULSE 78–106; RESP 17–19; TEMP 36.3–36.8; O2SAT 96–100
[2019-01-06] MEDS: LORazepam 1 MG TAB PO/SL ×3 (02:28→10:07)
[2019-01-06] MEDS: Normal Saline 1,000 ML 125 ML IV (04:31)
[2019-01-06] MEDS: chlordiazePOXIDE 25 MG CAP 50 MG PO ×2 (04:31→10:07)
[2019-01-06 08:20] LABS: Abs Immature Grans 0.02 k/cumm (0.0-0.09); Absolute Basophil Count 0.01 k/cumm (0.0-0.2); Absolute Eosinophil Count 0.11 k/cumm (0.0-0.7); Absolute Lymphocyte Count 1.58 k/cumm (1.2-3.4); Absolute Monocyte Count 0.47 k/cumm (0.11-0.7); Absolute Neutrophil Count 2.66 k/cumm (1.2-6.7); Basophils % 0.2; Eosinophils % 2.3; HCT 36.7 % (36.0-46.0); Immature Grans % 0.4; Lymphocytes % 32.6; Mean Corp. HGB Concentration 32.7 g/dL (32.0-36.0); Mean Corpuscular Hemoglobin 30.7 pg (27.0-33.0); Mean Corpuscular Volume 93.9 fL (80-95); Mean Platelet Volume 10.5 fL (8.0-11.0); Monocytes % 9.7; Neutrophils % 54.8; Platelet Count 163 x1000/uL (130-400); RBC 3.91 m/cumm (4.00-5.20); RBC Distribution Width 14.6 % (11.7-14.6); White Blood Cell Count 4.85 k/cumm (4.4-10.8)
[2019-01-06] MEDS: Nicotine 21 MG/24 HR PATCH TD (08:20)
[2019-01-06] MEDS: Folic Acid 1 MG TAB PO (08:21)
[2019-01-06] MEDS: Pantoprazole 40 MG TABCR PO (08:21)
[2019-01-06] MEDS: guaiFENesin 600 MG TABCR PO (08:21)
[2019-01-06] MEDS: Sucralfate 1 GM TAB PO ×2 (08:21→11:27)
[2019-01-06] MEDS: Multivitamin TAB 1 TAB PO (08:21)
[2019-01-06] MEDS: Thiamine 100 MG TAB PO (08:21)
[2019-01-06] MEDS: levoFLOXacin 500 MG TAB PO (08:21)
[2019-01-06] MEDS: Sertraline 50 MG TAB PO (08:21)
[2019-01-06 08:33] LABS: Anion Gap 9.3 mmol/L (3-11); BUN 4 mg/dL (7-18); CO2 23.7 mmol/L (21.0-32.0); CREATININE 0.55 mg/dL (0.55-1.02); Calcium 8.8 mg/dL (8.5-10.1); Chloride 108 mmol/L (98-107); Glucose 108 mg/dL (70-100); Magnesium 1.6 mg/dL (1.8-2.4); Potassium 3.6 mmol/L (3.5-5.1); Sodium 141 mmol/L (136-145)
[2019-01-06] MEDS: Potassium Chloride 20 MEQ TABCR 40 MEQ PO (11:27)
[2019-01-06] MEDS: MAGNESIUM SULFATE 2 GM/50 ML BAG IVPB (11:27)
[2019-01-06] MEDS: Enoxaparin 40 MG/0.4 ML SYR SC (11:28)
[2019-01-06] MEDS: Promethazine 25 MG TAB PO (11:28)
--- NOTE | 2019-01-06 16:49 | CMDISCH_ITS ---
LACE Index Scoring Tool - Questions: Length of Stay (in days): 4 - 6 Acuity (Admit via E.D.?): Yes Comorbidities: Liver or Renal Disease E.D. Visits: 4 - Answers: Total Score: 16 Risk of Readmission: High Risk Care Management Discharge Reason for Hospitalization: Alcohol Withdrawal Discharge Plan: Decided to leave AMA. Signed the appropriate forms. Stated she still plans to go to [facility] tomorrow but just had to go home to pack and make arrangements for the children. Patient/Family Education Needs: Strategic Planning Manager to continue helping her understand the impact her decisions have on her physical health as well as her overall quality of life.
--- NOTE | 2019-01-06 18:04 | DSE_ITS ---
Date of service: 01/06/19 Time of Service: 18:04 DS: Diagnosis Discharge Diagnosis (1) Alcohol withdrawal: Status: Acute (2) Chronic pancreatitis: Status: Chronic (3) Productive cough: Status: Acute Discharge Plan Disposition Patient Disposition: AGAINST MEDICAL ADVICE Condition: Stable Discharge Details Chief Complaint: ETOHWithdr Clinical Impression: Alcohol withdrawal Reason For Visit: ALCOHOL WITHDRAWAL Admit Date/Time: 01/01/19 11:53 Admit Provider: Kassidy Healy Attending Provider: Kassidy Healy Primary Care Provider: Soledad Irizarry ED Provider: Earl Guzman Hospital Course Hospital Course: Chief Complaint: EtOH Withdrawl HPI: 38-year-old woman with a prior history of alcohol abuse, history of Hemorrhagic Pancreatitis, and a Pancreatic Pseudocyst s/p recent drainage, admitted from [facility] Emergency Department on 01/01 with a diagnosis of acute EtOH Withdrawl. Mrs. Robin has a past medical history significant for EtOH abuse and prior hemorrhagic pancreatitis leading to hospitalization in 2013 in [place]. She went on to develop a hemothorax and collapsed lung, discovery of a large Pancreatic Pseudocyst, and development of a likely provoked DVT in the setting of an acute hospitalization at that time. Following that she developed what appears to be chronic pancreatitis, with continued alcohol abuse, described as upwards of 7 24oz beers daily. She has also undergone recent drainage of the ps eudocyst at [facility]. She also has a history of 'withdrawl seizures', described as an unusual episode of syncope with shaking as an outpatient previously, prompting a lorazepam taper prescribed by the ED doctor involved in her care without an admission. She reported 6-7 prior epsodes of this while living in [place], and had a repeat episode during her hospitalization in September 2018, with patient able to call nursing for help during the episode, fully conversant and without a post-ictal state following - all fully witnessed by the attending on service. Her other history includes anxiety and prior HCAP. She presented originally to the ED complaining of an elevated Heart Rate in the 150's - she was originally seen the day prior for CP and anxiety, and discharged home. She was referred for a dmission for potential alcohol withdrawl. This morning the patient continues to appear stable. Despite scoring up to a 20 on the CIWA protocol, all of her complaints remain subjective. She is comfort able appearing, nondiaphoretic, and completely lucid at time of exam. No overnight events repoted. Remains afebrile. Hospital Course: (1) Alcohol withdrawal: Patient has a definitive history of EtOH abuse, but with questionable withdrawl and seizure history as previously documented. She is hemodynamically stable, not hypertensive, non-diaphoretic, and not tachycardic unless ambulating. However, she is scoring on CIWA subjectively, with complaints such as tremors, anxiety, and hallucinations. She is not Tremulous on exam or while observing the patient, and remains completely lucid. However, patient was quite disturbed when learning that her high dose Librium would be titrated, as she cannot be discharged to [facility] while on treatment. She also wanted to be discharged home so that she could 'pack and organize' her things. When informed that she would potentially lose her bed, and that her benzodiazepine therapy would be tapered the patient left A. (2) Chronic pancreatitis: Symptoms were at [facility], and patient tolerated her diet. Pseudocyst has been drained at [facility]. (3) Productive cough: Potential bronchitis by history, with negative CXR and sputum culture unrevealing. Patient received 3-4 days of levaquin prior to leaving. (4) DVT prophylaxis: Was maintained on SC Lovenox. Home Meds and New Rx's Prescriptions: Continued acetaminophen [Mapap Extra Strength] 500 mg Tablet 500 mg PO Q4H PRN PRNQty: 0 RF: 0 sucralfate 1 gram Tablet 1 g PO AC & HS Qty: 120 RF: 0 pantoprazole 40 mg Tablet,Delayed Release (Dr/Ec) 40 mg PO DAILY@0730 Qty: 30 RF: 0 promethazine 25 mg Tablet 25 mg PO Q6H PRN PRNQty: 30 RF: 0 sertraline 50 mg Tablet 50 mg PO DAILY Qty: 30 RF: 0 lorazepam [Ativan] 1 mg Tablet 1 - 2 mg PO QID PRN PRN (Reason: Anxiety) RF: 0 Discharge Data Discharge Date/Time-TO BE ENTERED AT DEPARTURE: 01/06/19 13:43 DS: Data Vitals/I&O Vitals and I&O: Vital Signs Temperature 36.3 C L 01/06/19 12:46 Temperature Source Tympanic 01/06/19 12:46 Pulse 106 H 01/06/19 13:21 Pulse Rhythm Regular 01/06/19 11:14 Pulse 91 H 01/04/19 16:10 Respiratory Rate 17 01/06/19 12:46 Respiratory Effort 01/06/19 11:14 Respiratory Depth Normal 01/06/19 11:14 Respiratory Pattern Normal 01/06/19 11:14 Blood Pressure 123/73 01/06/19 12:46 Blood Pressure Mean 85 01/04/19 16:10 Blood Pressure Position Sitting 01/04/19 12:28 Pulse Oximetry 97 01/06/19 12:46 Oxygen Delivery Method Room Air 01/06/19 12:46 Oxygen Flow Rate 0 01/06/19 12:46 Pain Level 3 01/06/19 04:48 Comment 01/05/19 10:00 Intake & Output 01/05/19 01/06/19 01/06/19 23:59 11:59 23:59 Intake Total 2200 / 4804.166 970.833 / 2140.833 1170 / 2140.833 Output Total 4700 / 6805 2300 / 2300 Balance -2500 / -2000.834 -1329.167 / -254.129 3085 / -159.167 Intake: IV 1000 / 2754.166 970.833 / 970.833 Oral 1200 / 2050 1170 / 1170 Output: Urine 4700 / 6805 2300 / 2300 Other: Urine Color Yellow Pale Yellow Urine Appearance Clear Clear Urine Odor None None Stool Size Moderate Stool Characteristics Soft Voiding Methods Toilet Toilet Labs on day of discharge: Labs from last 24 hours 01/06/19 01/06/19 07:43 07:43 WBC 4.85 RBC 3.91 L Hgb 12.0 Hct 36.7 MCV 93.9 MCH 30.7 MCHC 32.7 RDW 14.6 Plt Count 163 MPV 10.5 Immature Gran % 0.4 Neutrophils % 54.8 Lymphocytes % 32.6 Monocytes % 9.7 Eosinophils % 2.3 Basophils % 0.2 Absolute Neutrophils 2.66 Absolute Lymphocytes 1.58 Absolute Monocytes 0.47 Absolute Eosinophils 0.11 Absolute Basophils 0.01 Sodium 141 Potassium 3.6 Chloride 108 H Carbon Dioxide 23.7 Anion Gap 9.3 BUN 4 L Creatinine 0.55 Estimated GFR/1.73 m2 >= 60.00 Glucose 108 H Calcium 8.8 Magnesium 1.6 L Preliminary micro results at discharge 01/05/19 08:15 Sputum Culture - Preliminary Sputum Normal Amie [facility] Medical History Acute pancreatitis (Acute) Alcohol abuse (Chronic) Alcoholic hepatitis (Acute) Anxiety (Chronic) Chronic pancreatitis (Chronic) DVT (deep venous thrombosis) (Inactive) Hemorrhagic pancreatitis (Resolved) History of DVT (deep vein thrombosis) (Chronic) Pancreatic pseudocyst (Chronic) Pancreatitis (Inactive) Seizure disorder (Chronic) Smoker (Acute) Thrombocytopenia (Chronic) Withdrawal seizures (Suspected) Surgical History H/O chest tube placement (Inactive) H/O esophagogastroduodenoscopy (Chronic) H/O LEEP (Acute) Family History Other Adopted Social History Smoking/Tobacco Use Status: Current every day Tobacco Type: cigarettes Tobacco: How many years used: 21 Alcohol Intake: current Alcohol Intake frequency: 3 or more drinks per day Alcohol type: beer Drug use: Occasionally Substance use type: marijuana Details: recorded h/o MJ and drug use but patient denies today Do you feel safe at home: Yes Do you feel safe in your relationship?: Yes Additional Social history: Patient is and has 2 children ages 13 and 14. Moved here from [place] approximately 2 years ago, now lives in [place]. She is a [id number] mother. Reports ongoing alcohol use. 30+-pack-year history of smoking.
== END 2019-01-06 13:43 | disposition left against medical advice (07) | DRG 894 ==
LOC: ER 13:19 → ICU 14:05 → MS 01-04 18:42
PROVIDERS: Admitting Provider Internal Medicine; Emergency Provider Student in an Organized Health Care Education/Training Program; PCP Nurse Practitioner Family; Visit Provider Internal Medicine
DX: F10.239 Alcohol dependence with withdrawal, unspecified (principal); Z53.21 Procedure and treatment not carried out due to patient leaving prior to being seen by health care provider; R05 Cough; E87.6 Hypokalemia; F17.210 Nicotine dependence, cigarettes, uncomplicated; E83.42 Hypomagnesemia; R32 Unspecified urinary incontinence; R26.2 Difficulty in walking, not elsewhere classified
CPT/HCPCS: 36415; 80048; 80053; 83690; 96361; 96365; 96366; 96372; 96375; 97162; 97165; 99223; 99232; 99233; 99238; 99285; J1650; 71045; 81003; 83735; 84484; 85025; 87070; 87086; 87205; J0780; J1885; J1956; J2060; J3475; J3480

== ENCOUNTER 2019-02-01 07:00 | Outpatient (CLI) | payer MEDICAID, SELFPAY ==
--- NOTE | 2019-02-01 11:00 | DI.CT_ITS ---
SYMPTOMS/DIAGNOSIS: S/P EUS GUIDED CYST ENTEROSTOMY FOR PANCREAS FLUID COLLECTION, USING LUMEN OPPOSING STENT, ASSESS FOR INTERVAL CHANGE ABDOMINAL CT: CT examination of the abdomen was performed with a bolus infusion of 80 cc's of Omnipaque 350 and ingestion of dilute barium. Images obtained through the lung bases are unremarkable. No free air in the peritoneal cavity. No significant free fluid. The liver and spleen are unremarkable in appearance with no evidence biliary dilatation. The pancreas is atrophic and calcified, no pancreatic ductal dilatation seen. There is a stent associated with the proximal duodenum as noted on previous CT of 12/13/18. This is reportedly a pancreatic or duodenal stent. There is decreased surrounding edema and fluid in this area since the previous examination. No duodenal obstruction. No significant focal fluid collection or abscess. No other small bowel or colonic pathology as visualized. The adrenals and kidneys are unremarkable. CONCLUSION: Reported pancreatic or duodenal stent in position, no obstructive process or abscess identified.
[2019-02-01] MEDS: Breeza Beverage 473 ML BTL PO ×2 (11:30→11:31)
[2019-02-01] MEDS: Omnipaque 350 MG/ML 100 ML BTL IJ (11:30)
[2019-02-01] MEDS: Omnipaque 350 MG/ML 50 ML BTL PO (11:31)
== END 2019-02-01 07:20 ==
PROVIDERS: PCP Family Medicine; Visit Provider Internal Medicine Gastroenterology
DX: K86.89 Other specified diseases of pancreas (principal); Z96.89 Presence of other specified functional implants
CPT/HCPCS: 74160; J3490; Q9967

== ENCOUNTER 2019-05-05 21:28 | Emergency (ER) | payer MEDICAID, SELFPAY ==
[2019-05-05 21:36] VITALS: BP 101/72; PULSE 106; RESP 16; TEMP 37; O2SAT 98
[2019-05-05 21:45] VITALS: RESP 20
--- NOTE | 2019-05-05 21:53 | DI.CT_ITS ---
EXAM: CT CHEST PE CTA CLINICAL HISTORY: pleuritic left sided chest pain TECHNIQUE: Post 61 cc Omnipaque 350 IV. COMPARISON: XR PORTABLE CHEST AP from 01/03/2019 CT ABDOMEN W from 02/01/2019 FINDINGS: No pulmonary emboli or aortic dissection is seen. The heart size is normal. No pleural or pericard ial effusions are seen. There are hazy increased ground-glass opacities in the left upper and lower lobes posteriorly which has the appearance of dependent changes. No focal area of consolidation is s een. There are no compression fractures or evidence of pneumothorax. A stent is noted in the duoden um and pancreas. IMPRESSION: No evidence of pulmonary emboli or other acute abnormality.
--- NOTE | 2019-05-05 21:57 | ED.GENADUL_ITS ---
Discharge Plan Disposition Patient Disposition: HOME Condition: Stable Discharge Details Chief Complaint: Chest Pain Clinical Impression: Chest pain Primary Care Provider: Abiel Clark ED Provider: Koby Walter Home Meds and New Rx's Prescriptions: New azithromycin 500 mg tablet See Rx Instructions .ROUTE .COMPLEX Qty: 6 RF: 0 Continued acetaminophen [Mapap Extra Strength] 500 mg Tablet 500 mg PO Q4H PRN PRNQty: 0 RF: 0 sucralfate 1 gram Tablet 1 g PO AC & HS Qty: 120 RF: 0 pantoprazole 40 mg Tablet,Delayed Release (Dr/Ec) 40 mg PO DAILY@0730 Qty: 30 RF: 0 promethazine 25 mg Tablet 25 mg PO Q6H PRN PRNQty: 30 RF: 0 sertraline 50 mg Tablet 50 mg PO DAILY Qty: 30 RF: 0 lorazepam [Ativan] 1 mg Tablet 1 - 2 mg PO QID PRN PRN (Reason: Anxiety) RF: 0 Discharge Instructions Instructions: Chest Pain (ED) Additional Instructions: follow up with your primary care provider within 1 week if you have worsening pain, difficulty breathing or feel more ill return to the emergency department for reevaluation Medical Decision Making 39 yo female with hx of alcohol abuse, pancreatitis with pseudocyst, who comes in with 5 hours of left sided chest pain in mid axillary line over 4-5 ribs that she states is worse with deep breathing and has pain with palpation in this area. She denies pain with exertion, fevers. She has no radiation of the pain. She has no abdominal tenderness on exam. I feel this is most likely chest wall pain but given her pleuritic pain and wells score is moderate will obtain CTA. Heart score of 1, will send troponin. No tearing back pain so doubt dissection and has normal vascular exam. She is noted to have smell of alcohol on her breath and admits to drinking unknown amount tonight but does have clear speech and is caox4 labs unremarkable, cta shows no pe, does show possible small airway disease and she has had a cough, no infiltrate to suggest pna. She is sleeping on reassessment and easily arousable. Will tx as possible mycoplasma based on ct findings and advised f/u with pcp and return precautions given Differential Diagnosis Differential Diagnosis: pe, chest wall pain, nstemi Imaging Data Radiologic Study: Attestation: I personally reviewed and interpreted this imaging study as follows: Imaging: CT Scan Radiologist's impression: IMPRESSION: 1. No pulmonary embolism. 2. Redemonstrated surgical device in the region of pancreatic head with changes of chronic pancreatitis. 3. Subtle mosaic hyperattenuation in the bilateral lung mclean. Could be seen in association with small airways disease. Correlate clinically. Lab Data Lab results reviewed: Yes I reviewed the patient's lab results. ECG Data Attestation: I personally reviewed and interpreted this ECG (s) as follows: Prior ECG tracings: not available for review Interpretation: sinus rhythm, rate of 102, pr 168, no acute st t wave ischemic findings HPI General Mode of arrival: ambulatory . Date/Time Provider Initiated Documentation: 05/05/19 21:50 . Limitations to Documentation: no limitations . Information obtained by: patient . History of Present Illness 39 year old F presents to the emergency department with the chief complaint of chest pain, described as moderate, and it has been constant. No relieving factors impro ve symptom(s), No exacerbating factors reported . Patient did receive the following treatments prior to arrival, none Related Data Home Medications Medication Instructions Recorded Confirmed acetaminophen [Mapap Extra 500 mg PO Q4H PRN PRN #0 tab 12/05/18 01/01/19 Strength] pantoprazole 40 mg PO DAILY@0730 #30 tab 12/05/18 01/01/19 promethazine 25 mg PO Q6H PRN PRN #30 tab 12/05/18 01/01/19 sertraline 50 mg PO DAILY #30 tab 12/05/18 01/01/19 sucralfate 1 g PO AC & HS #120 tab 12/05/18 01/01/19 lorazepam [Ativan] 1 - 2 mg PO QID PRN PRN 01/01/19 01/01/19 azithromycin See Rx Instructions .ROUTE 05/05/19 .COMPLEX #6 tab Previous Rx's Medication Instructions Recorded acetaminophen [Mapap Extra 500 mg PO Q4H PRN PRN #0 tab 12/05/18 Strength] pantoprazole 40 mg PO DAILY@0730 #30 tab 12/05/18 promethazine 25 mg PO Q6H PRN PRN #30 tab 12/05/18 sertraline 50 mg PO DAILY #30 tab 12/05/18 sucralfate 1 g PO AC & HS #120 tab 12/05/18 azithromycin See Rx Instructions .ROUTE 05/05/19 .COMPLEX #6 tab Allergies Allergy/AdvReac Type Severity Reaction Status Date / Time amoxicillin Allergy Unverified 12/31/18 22:14 codeine Allergy Unverified 12/31/18 22:14 General Stated Complaint: Chest Pain JAMEEL: 2 Review of Systems All systems reviewed & are unremarkable except as noted in HPI and below Constitutional Constitutional: Denies chills, Denies fever(s) and Denies weakness Gastrointestinal Gastrointestinal: Denies abdominal pain, Denies nausea and Denies vomiting Musculoskeletal Musculoskeletal: Denies joint swelling Neurologic Neurologic: Denies weakness [facility] Social History Smoking/Tobacco Use Status: Current every day Tobacco Type: cigarettes Tobacco: How many years used: 21 Alcohol Intake: current Alcohol Intake frequency: 3 or more drinks per day Alcohol type: beer Drug use: Occasionally Substance use type: marijuana Details: recorded h/o MJ and drug use but patient denies today Do you feel safe at home: Yes Do you feel safe in your relationship?: Yes Additional Social history: Patient is and has 2 children ages 13 and 14. Moved here from [place] approximately 2 years ago, now lives in [place]. She is a [id number] mother. Reports ongoing alcohol use. 30+-pack-year history of smoking. Exam Const General: no acute distress Orientation: alert HENMT Head: normal to inspection Ears: external ears normal General nose exam: external nose normal Mouth: moist mucous membranes Eyes General: appearance normal, both eyes and all related structures Neck Neck: normal visual inspection Resp Effort & Inspection: normal respiratory effort and able to speak in complete sentences Cardio Rate: regular rate GI Palpation: soft and nontender Skin General skin exam: no rashes or lesions noted Neuro General: alert and oriented x3 Extrem General: normal to inspection Psych Mental Status: mental status grossly normal Course Vital Signs Vital signs: Vital Signs Temperature 37.0 C 05/05/19 21:36 Pulse 106 H 05/05/19 21:36 Respiratory Rate 16 05/05/19 21:36 Blood Pressure 101/72 05/05/19 21:36 Pulse Oximetry 98 05/05/19 21:36 Temperature 37.0 C 05/05/19 21:36 Temperature Source Skin 05/05/19 21:36 Pulse 106 H 05/05/19 21:36 Respiratory Rate 20 05/05/19 21:45 Respiratory Effort 05/05/19 21:45 Blood Pressure 101/72 05/05/19 21:36 Pulse Oximetry 98 05/05/19 21:36 Oxygen Delivery Method Room Air 05/05/19 21:36 Oxygen Flow Rate 0 05/05/19 21:36 Pain Level 8 05/05/19 21:36
[2019-05-05 22:09] LABS: Abs Immature Grans 0.06 k/cumm (0.0-0.09); Absolute Basophil Count 0.02 k/cumm (0.0-0.2); Absolute Eosinophil Count 0.06 k/cumm (0.0-0.7); Absolute Lymphocyte Count 2.25 k/cumm (1.2-3.4); Absolute Monocyte Count 0.56 k/cumm (0.11-0.7); Basophils % 0.2; Eosinophils % 0.5; HGB 14.7 g/dL (12.0-15.5); Immature Grans % 0.5; Lymphocytes % 19.8; Mean Corp. HGB Concentration 34.2 g/dL (32.0-36.0); Mean Corpuscular Hemoglobin 29.8 pg (27.0-33.0); Mean Corpuscular Volume 87.2 fL (80-95); Mean Platelet Volume 10.7 fL (8.0-11.0); Monocytes % 4.9; Neutrophils % 74.1; Platelet Count 312 x1000/uL (130-400); RBC 4.93 m/cumm (4.00-5.20); RBC Distribution Width 14.9 % (11.7-14.6); White Blood Cell Count 11.36 k/cumm (4.4-10.8)
[2019-05-05 22:15] LABS: Absolute Neutrophil Count 8.42 k/cumm (1.2-6.7)
[2019-05-05] MEDS: Omnipaque 350 MG/ML 100 ML BTL IJ (22:22)
[2019-05-05 22:29] LABS: ALT 29 U/L (14-59); AST 26 U/L (15-37); Albumin 3.8 g/dL (3.4-5.0); Alkaline Phosphatase 164 U/L (46-116); Anion Gap 11.6 mmol/L (3-11); BUN 2 mg/dL (7-18); Bilirubin, Total 0.1 mg/dL (0.2-1.0); CO2 25.4 mmol/L (21.0-32.0); Calcium 8.6 mg/dL (8.5-10.1); Chloride 104 mmol/L (98-107); ETHANOL BLOOD 241.7 mg/dL (<3); Glucose 99 mg/dL (70-100); Lipase 24 U/L (73-393); Magnesium 1.9 mg/dL (1.8-2.4); Potassium 3.6 mmol/L (3.5-5.1); Sodium 141 mmol/L (136-145); Total Protein 7.8 g/dL (6.4-8.2); Troponin I < 0.05 ng/mL (0.00-0.06)
[2019-05-05 22:35] LABS: PTT Activated 24.9 sec (21.0-31.4); Prothrombin Time 10.2 sec (9.3-11.0)
--- NOTE | 2019-05-05 22:42 | DI.VRAD_ITS ---
PROCEDURE INFORMATION: Exam: CT Angiography Chest With Contrast Exam date and time: 05/05/2019 9:54 PM Clinical history: 39 years old, female; Other: Left sided pleurotic pain; Prior surgery; Surgery date: 1-6 months; Surgery type: Pancreatic cyst, stent placement TECHNIQUE: Imaging protocol: Computed tomographic angiography of the chest with intravenous contrast. 3D rendering: MIP reconstructed images were created and reviewed. Radiation optimization: All CT scans at this facility use at least one of these dose optimization techniques: automated exposure control; mA and/or kV adjustment per patient size (includes targeted exams where dose is matched to clinical indication); or iterative reconstruction. Contrast material: OMNIPAQUE 350; Contrast volume: 61 ml; Contrast route: IV RAC; COMPARISON: CT CHEST PE CTA 12/31/2018 11:53 PM FINDINGS: Pulmonary arteries: Pulmonary artery opacification is adequate. No pulmonary embolism. Aorta: No aortic aneurysm. No aortic dissection. Thyroid: No mass. Lungs: There is subtle diffuse mosaic hyperattenuation of the lungs, possibly resulting changes of small airways disease. There is mild dependent atelectasis within the posterior lung mclean as well as within the left lung base. Otherwise no pulmonary consolidation or mass. Pleural space: No pneumothorax. No pleural effusion. Heart: No cardiomegaly. No pericardial effusion. Pancreas: Surgical device noted within the right upper quadrant in the region of the pancreatic head. Pancreas is atrophic with diffuse coarse calcifications compatible with chronic pancreatitis. Correlate clinically. Lymph nodes: Unremarkable. No pathologically enlarged lymph nodes. Bones/joints: Unremarkable. No acute fracture. Soft tissues: No focal abnormality. IMPRESSION: 1. No pulmonary embolism. 2. Redemonstrated surgical device in the region of pancreatic head with changes of chronic pancreatitis. 3. Subtle mosaic hyperattenuation in the bilateral lung mclean. Could be seen in association with small airways disease. Correlate clinically. Dictated and Authenticated by: Alvaro Dempsey MD. Ordering:CHENCHO Whalen MD
[2019-05-05 22:43] LABS: HCG Qual (Serum) Negative
[2019-05-05 23:23] VITALS: BP 102/69; PULSE 108; RESP 16; TEMP 36.9; O2SAT 95
--- NOTE | 2019-05-05 23:24 | NUR.NOTE ---
IV removed, discharge instructions reviewed with verbal understanding. aware to f/u with pcp this week. Script given to pt. ambulated to exit with steady gait.
== END 2019-05-05 23:25 | disposition home or self-care (01) ==
PROVIDERS: Emergency Provider Emergency Medicine; PCP Family Medicine
DX: R07.9 Chest pain, unspecified (principal); R91.1 Solitary pulmonary nodule
CPT/HCPCS: 36415; 71275; 80053; 83690; 93005; 99285; 80320; 83735; 84484; 84703; 85025; 85610; 85730; 93010; J3490

== ENCOUNTER 2019-06-10 11:17 | Outpatient (CLI) | payer MEDICAID, SELFPAY ==
--- NOTE | 2019-06-10 10:33 | DI.RAD_ITS ---
EXAM: XR CHEST 2V PA LATERAL CLINICAL HISTORY: COUGH, R05, COUGH X 1 MONTH RT POSTERIOR PLEURITIC PAIN. TECHNIQUE: 2D digital imaging was performed. COMPARISON: XR PORTABLE CHEST AP from 01/03/2019 FINDINGS: LUNGS: Clear. No pleural abnormality seen. HEART: Normal. MEDIASTINUM: Normal. OTHER FINDINGS:Normal. IMPRESSION: No acute pulmonary findings.
== END 2019-06-10 11:37 ==
PROVIDERS: PCP Family Medicine; Visit Provider Family Medicine
DX: R05 Cough (principal); R07.81 Pleurodynia
CPT/HCPCS: 71046

== ENCOUNTER 2019-11-14 10:00 | Emergency (ER) | payer MEDICAID, SELFPAY ==
[2019-11-14 10:04] VITALS: BP 117/76; PULSE 76; RESP 18; TEMP 37.3; O2SAT 98
[2019-11-14 10:17] VITALS: BP 130/78; PULSE 68; RESP 16; O2SAT 99
[2019-11-14] MEDS: Normal Saline 1,000 ML 1000 ML IV (10:25)
[2019-11-14 10:32] LABS: Bilirubin Negative (Negative); Blood Negative (Negative); Clarity Clear (Clear); Glucose Negative (Negative); Ketones Negative (Negative); Leukocyte Esterase Negative (Negative); Nitrite Negative (Negative); Urobilinogen 0.2 EU/dL (Up TO 0.2); pH 5.5 (5-8)
--- NOTE | 2019-11-14 10:51 | DI.CT_ITS ---
EXAM: CT ABDOMEN PELVIS W CLINICAL HISTORY: Hx of pancreatitis, pancreatic stent, LUQ pain. TECHNIQUE: Imaging Protocol: Axial computed tomography images with coronal and sagittal reformatted images were created and reviewed CONTRAST MATERIAL: Intravenous: Omnipaque 350 Contrast volume:71 cc Oral: no COMPARISON: CT CT ABDOMEN W from 02/01/[address] CHEST PE CTA from 05/05/2019 FINDINGS: Exam is limited without oral contrast as well as lack of intra-abdominal fat. ABDOMEN: Lung Bases: Normal where visualized. Liver: Normal density. No measurable mass. Gallbladder and biliary tract: No radiodense calculus or dilation. Pancreas: The pancreas is atrophic and shows multiple calcifications. Soft tissue density material i s again noted superior to the head of the pancreas which could represent adenopathy. Findings appear decreased when compared the previous exam. The previously noted stent is no longer present. The st omach is nearly empty but no gross abnormality is seen. The vasculature appears intact. There is no evidence of a pseudocyst or current inflammation. There is no free air or free fluid. Spleen: Normal. Kidneys: Normal size, contour and axis. No radiodense stones or obstructive uropathy. No masses seen. Adrenal glands: No masses seen. Abdominal Aorta: Abdominal portion non-dilated. PELVIS: Bladder: Nearly empty.. Bowel: No obstruction or bowel wall thickening. The appendix appears normal. Peritoneal cavity: No ascites, collection or mesenteric inflammatory response. Bones: Within normal limits. Reproductive organs: An IUD is noted within the uterus.. Lymph nodes: Unremarkable. Impression: Atrophic pancreas with evidence of chronic pancreatitis. No current inflammation or pseudocyst is se en. The bowel is unremarkable.. RADIATION DOSE DELIVERED: 657.32mGy.cm Total DLP DATA REPOSITORY: All CT scans at this facility are submitted to the National Radiology Data Registry (NRDR) Dose Index Registry (DIR) with the [employer] (A[employer]). RADIATION OPTIMIZATION: All CT scans at this facility use at least one of these dose optimization te chniques: automated exposure control; mA and/or kV adjustment per patient size (includes targeted exa ms where dose is matched to clinical indication); or iterative reconstruction.
--- NOTE | 2019-11-14 10:56 | W.ED.GENAD ---
Discharge Plan Disposition Patient Disposition: HOME Condition: Stable Discharge Details Chief Complaint: Abd Prob Clinical Impression: Abdominal pain Primary Care Provider: Abiel Clark ED Provider: Johnny Back Home Meds and New Rx's Prescriptions: New metoclopramide HCl [Reglan] 10 mg tablet 10 mg PO Q6H PRN (Reason: nausea and vomiting) Qty: 10 RF: 0 Continued acetaminophen [Mapap Extra Strength] 500 mg Tablet 500 mg PO Q4H PRN PRNQty: 0 RF: 0 sucralfate 1 gram Tablet 1 g PO AC & HS Qty: 120 RF: 0 pantoprazole 40 mg Tablet,Delayed Release (Dr/Ec) 40 mg PO DAILY@0730 Qty: 30 RF: 0 promethazine 25 mg Tablet 25 mg PO Q6H PRN PRNQty: 30 RF: 0 sertraline 50 mg Tablet 50 mg PO DAILY Qty: 30 RF: 0 lorazepam [Ativan] 1 mg Tablet 1 - 2 mg PO QID PRN PRN (Reason: Anxiety) RF: 0 azithromycin 500 mg tablet See Rx Instructions .ROUTE .COMPLEX Qty: 6 RF: 0 Discharge Instructions Instructions: Abdominal Pain (ED) Additional Instructions: Clear liquid diet for the next 24 hours. [id number] medications as directed present meta control. Please watch for new or worsening symptoms and return to the ER for any concerns. Reglan as directed for nausea. I strongly recommend reaching out to your team in [facility] later today or tomorrow for prompt outpatient reevaluation. Discharge Data Discharge Date/Time-TO BE ENTERED AT DEPARTURE: 11/14/19 13:39 Medical Decision Making <ALEXANDRIA Gale - Last Filed: 11/14/19 14:54> 39-year-old female with history of chronic pancreatitis, alcohol abuse, sober since April, alcoholic hepatitis, anxiety, seizure disorder, current smoker,, cytopenia, presents with upper abdominal, lower chest pain that began yesterday, constant and progressive. She is nauseous but denies any vomiting. Clinically she appears well, nontoxic, appears hemodynamically stable. Abdomen does have some tenderness but certainly nonsurgical in nature. Will obtain laboratory values, give IV fluid, patient declines Zofran and requests Phenergan instead. Case discussed with Dr. Guzman, will not wait for laboratory values, will obtain CT imaging of the abdomen and pelvis with contrast. Patient reports little relief with the Phenergan. Given Reglan and 2 mg IV morphine. Laboratory values reveal a WBC count of 9.34 hemoglobin 15.1 hematocrit 44 platelet count 178. Electrolytes unremarkable. GFR greater than 60. Alk phosphatase 171, LFTs otherwise unremarkable, lipase is 17. Troponin is less than 0.05. Given the duration of patient's symptoms, and low suspicion for ACS, I do believe a single troponin EKG is sufficient for cardiac rule out. Clinically this certainly appears to be more abdominal in nature. Urinalysis unremarkable for infectious process or hematuria. Upon reevaluation patient reports much improvement with the Reglan and IV morphine. She is now requesting to drink water. Able to tolerate p.o. intake without difficulty. CT imaging reveals atrophic pancreas with evidence of chronic pancreatitis, no current inflammation or pseudocyst is seen. The bowel is unremarkable. Patient is relieved. We discussed the importance of follow-up with her specialty team at [facility]. Case and disposition once again discussed with Dr. Guzman. Patient is comfortable with discharge at this time and I will provide her a prescription for antiemetic. Medical Records Medical records reviewed: Yes I reviewed the patient's medical records. Imaging Data Radiologic Study: Attestation: I personally reviewed and interpreted this imaging study as follows: Imaging: CT Scan Radiologist's impression: Atrophic pancreas with evidence of chronic pancreatitis. No current inflammation or pseudocyst is seen. The bowel is unremarkable. Lab Data Lab results reviewed: Yes I reviewed the patient's lab results. Labs: Laboratory Tests Range/Units 11/14/19 11/14/19 11/14/19 10:20 11:45 11:45 WBC (4.4-10.8) k/cumm 9.34 RBC (4.00-5.20) m/cumm 4.85 Hgb (12.0-15.5) g/dL 15.1 Hct (36.0-46.0) % 44.0 MCV (80-95) fL 90.7 MCH (27.0-33.0) pg 31.1 MCHC (32.0-36.0) g/dL 34.3 RDW (11.7-14.6) % 13.7 Plt Count (130-400) x1000/uL 178 MPV (8.0-11.0) fL 11.4 H Immature Gran % % 0.2 Neutrophils % 75.2 Lymphocytes % 18.4 Monocytes % 5.9 Eosinophils % 0.2 Basophils % 0.1 Absolute Neutrophils (1.2-6.7) k/cumm 7.02 H Absolute Lymphocytes (1.2-3.4) k/cumm 1.72 Absolute Monocytes (0.11-0.7) k/cumm 0.55 Absolute Eosinophils (0.0-0.7) k/cumm 0.02 Absolute Basophils (0.0-0.2) k/cumm 0.01 Sodium Cancelled Potassium Cancelled Chloride Cancelled Carbon Dioxide Cancelled Anion Gap Cancelled BUN Cancelled Creatinine Cancelled Estimated GFR/1.73 m2 Cancelled Glucose Cancelled Calcium Cancelled Magnesium Cancelled Total Bilirubin Cancelled AST Cancelled ALT Cancelled Alkaline Phosphatase Cancelled Troponin I (<0.06) ng/mL < 0.05 Total Protein Cancelled Albumin Cancelled Lipase (73-393) U/L 17 Urine Color (Yellow) Yellow Urine Clarity (Clear) Clear Urine pH (5-8) 5.5 Ur Specific Kendall (1.005-1.025) 1.010 Urine Protein (Negative) mg/dL Negative Urine Ketones (Negative) mg/dL Negative Urine Blood (Negative) Negative Urine Nitrite (Negative) Negative Urine Bilirubin (Negative) Negative Urine Urobilinogen (Up TO 0.2) EU/dL 0.2 Ur Leukocyte Esterase (Negative) Negative Urine Glucose (Negative) mg/dL Negative Range/Units 11/14/19 12:35 WBC (4.4-10.8) k/cumm RBC (4.00-5.20) m/cumm Hgb (12.0-15.5) g/dL Hct (36.0-46.0) % MCV (80-95) fL MCH (27.0-33.0) pg MCHC (32.0-36.0) g/dL RDW (11.7-14.6) % Plt Count (130-400) x1000/uL MPV (8.0-11.0) fL Immature Gran % % Neutrophils % Lymphocytes % Monocytes % Eosinophils % Basophils % Absolute Neutrophils (1.2-6.7) k/cumm Absolute Lymphocytes (1.2-3.4) k/cumm Absolute Monocytes (0.11-0.7) k/cumm Absolute Eosinophils (0.0-0.7) k/cumm Absolute Basophils (0.0-0.2) k/cumm Sodium 138 Potassium 4.0 Chloride 106 Carbon Dioxide 26.1 Anion Gap 5.9 BUN 5 L Creatinine 0.69 Estimated GFR/1.73 m2 >= 60.00 Glucose 88 Calcium 8.5 Magnesium 1.8 Total Bilirubin 0.3 AST 17 ALT 21 Alkaline Phosphatase 171 H Troponin I (<0.06) ng/mL Total Protein 7.0 Albumin 3.8 Lipase (73-393) U/L Urine Color (Yellow) Urine Clarity (Clear) Urine pH (5-8) Ur Specific Kendall (1.005-1.025) Urine Protein (Negative) mg/dL Urine Ketones (Negative) mg/dL Urine Blood (Negative) Urine Nitrite (Negative) Urine Bilirubin (Negative) Urine Urobilinogen (Up TO 0.2) EU/dL Ur Leukocyte Esterase (Negative) Urine Glucose (Negative) mg/dL ECG Data Attestation: I personally reviewed and interpreted this ECG (s) as follows: Prior ECG tracings: available for review Interpretation: EKG reviewed and interpreted with Dr. Guzman. Normal sinus rhythm, ventricular rate of 83. No acute ST elevation or depression segments. <Earl Guzman MD - Last Filed: 11/15/19 19:11> Patient seen, examined, and discussed with A[place] Back. CT of the abdomen pelvis to assess for acute surgical pathology negative as interpreted by radiology. No signs of pancreatitis. Labs reviewed and normal lipase. No leukocytosis. Electrolytes within normal limits. Patient was reassessed and feeling better. I agree with treatment plan as discussed/documented. HPI <ALEXANDRIA Gale - Last Filed: 11/14/19 14:54> General Mode of arrival: ambulatory. Date/Time Provider Initiated Documentation: 11/14/19 10:04. Limitations to Documentation: no limitations. Information obtained by: patient. HPI Narrative: This is a 39-year-old female with history of chronic pancreatitis, alcohol abuse, alcoholic hepatitis, anxiety, pancreatic pseudocyst, seizure disorder, thrombocytopenia, withdrawal seizures, who currently has a pancreatic stent presenting to the ER today for 2-day history of nausea, diffuse upper abdomen, diffuse lower chest discomfort worse in the left upper quadrant. She has not vomited. The pain does not radiate. She reports this feels very similar to her previous pancreatitis. She reports that she has been sober since April, that was her last pancreatic flareup. She had a stent placed at [facility] roughly 1 year ago, she believes by Dr. Gandhi, plans were to take the stent out 6-8 weeks later but secondary to multiple circumstances, the stent has not been removed. She denies recent travel or bad food exposure. Denies sick contact. Denies fever, back pain, dysuria, hematuria, vaginal bleeding or discharge. She does report loose stools. Pain has been present since yesterday, worsening since that time, moderate-severe now. She denies an allergy to Zofran but reports it gives her a headache and would prefer not to have the medication. She is concerned about dehydration and reports feeling generalized weakness Related Data Home Medications Medication Instructions Recorded Confirmed acetaminophen [Mapap Extra 500 mg PO Q4H PRN PRN #0 tab 12/05/18 01/01/19 Strength] pantoprazole 40 mg PO DAILY@0730 #30 tab 12/05/18 01/01/19 promethazine 25 mg PO Q6H PRN PRN #30 tab 12/05/18 01/01/19 sertraline 50 mg PO DAILY #30 tab 12/05/18 01/01/19 sucralfate 1 g PO AC & HS #120 tab 12/05/18 01/01/19 lorazepam [Ativan] 1 - 2 mg PO QID PRN PRN 01/01/19 01/01/19 azithromycin See Rx Instructions .ROUTE 05/05/19 .COMPLEX #6 tab metoclopramide HCl [Reglan] 10 mg PO Q6H PRN #10 tab 11/14/19 Previous Rx's Medication Instructions Recorded acetaminophen [Mapap Extra 500 mg PO Q4H PRN PRN #0 tab 12/05/18 Strength] pantoprazole 40 mg PO DAILY@0730 #30 tab 12/05/18 promethazine 25 mg PO Q6H PRN PRN #30 tab 12/05/18 sertraline 50 mg PO DAILY #30 tab 12/05/18 sucralfate 1 g PO AC & HS #120 tab 12/05/18 azithromycin See Rx Instructions .ROUTE 05/05/19 .COMPLEX #6 tab metoclopramide HCl [Reglan] 10 mg PO Q6H PRN #10 tab 11/14/19 Allergies Allergy/AdvReac Type Severity Reaction Status Date / Time amoxicillin Allergy Unverified 12/31/18 22:14 codeine Allergy Unverified 12/31/18 22:14 General Stated Complaint: Abd Prob JAMEEL: 3 Review of Systems <ALEXANDRIA Gale - Last Filed: 11/14/19 14:54> Constitutional Constitutional: Denies fatigue, Denies fever(s), Denies headache(s) and Reports weakness ENT Ears, Nose, Mouth, and Throat: Denies headache(s) and Denies sore throat Cardiovascular Cardiovascular: Reports chest pain and Denies dyspnea Respiratory Respiratory: Denies cough and Denies dyspnea Gastrointestinal Gastrointestinal: Reports abdominal pain, Reports loose stools, Reports nausea and Denies vomiting Genitourinary Genitourinary: Denies dysuria and Denies vaginal discharge Musculoskeletal Musculoskeletal: Denies back pain, Denies numbness and Denies tingling Integumentary/Breasts Skin/Breast: Denies rash Neurologic Neurologic: Denies headache(s), Denies numbness, Denies tingling and Reports weakness Endocrine Endocrine: Denies fatigue PFSH <ALEXANDRIA Gale - Last Filed: 11/14/19 14:54> Medical History Acute pancreatitis (Acute) Alcohol abuse (Chronic) Alcoholic hepatitis (Acute) Anxiety (Chronic) Chronic pancreatitis (Chronic) DVT (deep venous thrombosis) (Inactive) Hemorrhagic pancreatitis (Resolved) History of DVT (deep vein thrombosis) (Chronic) Pancreatic pseudocyst (Chronic) Pancreatitis (Inactive) Seizure disorder (Chronic) Smoker (Acute) Thrombocytopenia (Chronic) Withdrawal seizures (Suspected) Surgical History H/O chest tube placement (Inactive) H/O esophagogastroduodenoscopy (Chronic) H/O LEEP (Acute) Family History Other Adopted Social History Smoking/Tobacco Use Status: Current every day Tobacco Type: cigarettes Tobacco: How many years used: 21 Alcohol Intake: current Alcohol Intake frequency: 3 or more drinks per day Alcohol type: beer Drug use: Occasionally Substance use type: marijuana Details: recorded h/o MJ and drug use Do you feel safe at home: Yes Do you feel safe in your relationship?: Yes Additional Social history: Patient is and has 2 children ages 13 and 14. Moved here from [place] approximately 2 years ago, now lives in [place]. She is a [id number] mother. Reports ongoing alcohol use. 30+-pack-year history of smoking. Exam <ALEXANDRIA Gale - Last Filed: 11/14/19 14:54> Const General: cooperative, healthy appearing, comfortable and no acute distress Orientation: alert, awake and oriented x3 HENMT Head: normal to inspection, normocephalic and atraumatic Mouth: moist mucous membranes Eyes Conjunctivae: conjunctivae normal Neck Neck: normal visual inspection, trachea midline and supple Resp Effort & Inspection: normal respiratory effort and able to speak in complete sentences Cardio Rate: regular rate Rhythm: regular rhythm GI Inspection: normal to inspection Palpation: soft, not firm, no guarding, not rigid and tender in the epigastrum, in the LUQ and in the RUQ; with no rebound tenderness Auscultation: normal bowel sounds Back/Spine/Pelvis Back: No back tenderness Skin General skin exam: no rashes or lesions noted Neuro General: patient alert, patient awake, patient oriented x3, moves all extremities and no focal motor deficits Motor: muscle tone normal throughout Sensory Exam: no sensory deficits noted Extrem General: normal to inspection, full ROM and capillary refill normal Psych Appearance: grossly normal Mental Status: mental status grossly normal Course <ALEXANDRIA Gale - Last Filed: 11/14/19 14:54> Vital Signs Vital signs: Vital Signs Temperature 37.3 C 11/14/19 10:04 Pulse 76 11/14/19 10:04 Respiratory Rate 18 11/14/19 10:04 Blood Pressure 117/76 11/14/19 10:04 Pulse Oximetry 98 11/14/19 10:04 Temperature 37.3 C 11/14/19 10:04 Temperature Source Skin 11/14/19 10:04 Pulse 68 11/14/19 10:17 Respiratory Rate 16 11/14/19 10:17 Respiratory Effort 11/14/19 10:12 Blood Pressure 130/78 11/14/19 10:17 Pulse Oximetry 99 11/14/19 10:17 Oxygen Delivery Method Room Air 11/14/19 10:17 Oxygen Flow Rate 0 11/14/19 10:17 Pain Level 8 11/14/19 10:04 Lab/Test Results Lab/Test Results: Laboratory Tests Range/Units 11/14/19 10:20 Urine Color (Yellow) Yellow Urine Clarity (Clear) Clear Urine pH (5-8) 5.5 Ur Specific Kendall (1.005-1.025) 1.010 Urine Protein (Negative) mg/dL Negative Urine Ketones (Negative) mg/dL Negative Urine Blood (Negative) Negative Urine Nitrite (Negative) Negative Urine Bilirubin (Negative) Negative Urine Urobilinogen (Up TO 0.2) EU/dL 0.2 Ur Leukocyte Esterase (Negative) Negative Urine Glucose (Negative) mg/dL Negative POC- Test(urine) Negative
[2019-11-14 11:55] LABS: Abs Immature Grans 0.02 k/cumm (0.0-0.09); Absolute Basophil Count 0.01 k/cumm (0.0-0.2); Absolute Eosinophil Count 0.02 k/cumm (0.0-0.7); Absolute Lymphocyte Count 1.72 k/cumm (1.2-3.4); Absolute Monocyte Count 0.55 k/cumm (0.11-0.7); Absolute Neutrophil Count 7.02 k/cumm (1.2-6.7); Basophils % 0.1; Eosinophils % 0.2; HGB 15.1 g/dL (12.0-15.5); Immature Grans % 0.2 %; Lymphocytes % 18.4; Mean Corp. HGB Concentration 34.3 g/dL (32.0-36.0); Mean Corpuscular Hemoglobin 31.1 pg (27.0-33.0); Mean Corpuscular Volume 90.7 fL (80-95); Mean Platelet Volume 11.4 fL (8.0-11.0); Monocytes % 5.9; Neutrophils % 75.2; Platelet Count 178 x1000/uL (130-400); RBC 4.85 m/cumm (4.00-5.20); RBC Distribution Width 13.7 % (11.7-14.6); White Blood Cell Count 9.34 k/cumm (4.4-10.8)
[2019-11-14] MEDS: Omnipaque 350 MG/ML 100 ML BTL IJ (11:55)
[2019-11-14] MEDS: Normal Saline - Diluent 50 ML VIAL IV (12:02)
[2019-11-14 12:12] VITALS: BP 132/85; PULSE 64; RESP 16; O2SAT 100
[2019-11-14] MEDS: Prochlorperazine 10 MG/2 ML VIAL IVP (12:16)
[2019-11-14] MEDS: Normal Saline Flush 10 ML SYR IVP (12:17)
[2019-11-14 12:48] LABS: Troponin I < 0.05 ng/mL (<0.06)
[2019-11-14 12:49] LABS: Lipase 17 U/L (73-393)
[2019-11-14 13:07] LABS: ALT 21 U/L (14-59); AST 17 U/L (15-37); Albumin 3.8 g/dL (3.4-5.0); Alkaline Phosphatase 171 U/L (46-116); Anion Gap 5.9 mmol/L (3-11); BUN 5 mg/dL (7-18); Bilirubin, Total 0.3 mg/dL (0.2-1.0); CO2 26.1 mmol/L (21.0-32.0); CREATININE 0.69 mg/dL (0.55-1.02); Calcium 8.5 mg/dL (8.5-10.1); Chloride 106 mmol/L (98-107); Glucose 88 mg/dL (74-106); Magnesium 1.8 mg/dL (1.8-2.4); Sodium 138 mmol/L (136-145)
[2019-11-14 13:26] VITALS: BP 118/79; PULSE 70; RESP 14; TEMP 37.2; O2SAT 99
[2019-11-14 13:33] VITALS: BP 118/79; PULSE 70; RESP 14; TEMP 37.2; O2SAT 99
== END 2019-11-14 13:39 | disposition home or self-care (01) ==
PROVIDERS: Emergency Provider Physician Assistant; PCP Family Medicine
DX: R10.13 Epigastric pain (principal); R11.0 Nausea; R10.12 Left upper quadrant pain; K86.1 Other chronic pancreatitis; F10.11 Alcohol abuse, in remission
CPT/HCPCS: 36415; 80053; 81025; 83690; 93005; 96361; 96365; 96375; 99285; 74177; 81003; 83735; 84484; 85025; 93010; J0780; J3490

== ENCOUNTER 2020-04-04 11:27 | Emergency (ER) | payer MEDICAID, SELFPAY ==
[2020-04-04] VITALS (39 sets, daily range): BP systolic 110–150; BP diastolic 66–96; PULSE 75–121; RESP 8–22; TEMP 36.4–37.1; O2SAT 97–100
--- NOTE | 2020-04-04 11:15 | RT.EKG_ITS ---
APPROVED REPORT Exam: Resting ECG Patient Location: E HR:98 bpm ECG Measurements Heart Rate 98 AXIS TX 150 P 59 QRSd 81 QRS 75 QT 349 T 51 QTc 446 Conclusion Sinus rhythm...normal P axis, V-rate 60- 99
--- NOTE | 2020-04-04 11:52 | ED.GENADUL_ITS ---
Discharge Plan Disposition Patient Disposition: STILL A PATIENT Condition: Stable Discharge Details Clinical Impression: Chest pain, Abdominal pain, Bipolar disorder Primary Care Provider: Abiel Clark ED Provider: Sumi Naranjo Home Meds and New Rx's Prescriptions: Continued atorvastatin 40 mg tablet 40 mg PO DAILY RF: 0 metformin 500 mg tablet 500 mg PO DAILY RF: 0 promethazine 12.5 mg tablet 12.5 mg PO Q8H PRN PRNRF: 0 thiamine HCl (vitamin B1) [Vitamin B-1] 100 mg Tablet 100 mg PO BID RF: 0 topiramate 50 mg tablet 50 mg PO DAILY RF: 0 cholecalciferol (vitamin D3) 1,250 mcg (50,000 unit) capsule 1 unit PO Q7D RF: 0 V-C Forte 1 mg capsule 1 cap PO DAILY RF: 0 Discharge Instructions Instructions: Chest Pain (ED), Abdominal Pain (ED), Anxiety (ED) Additional Instructions: Please follow-up with [facility] human services as instructed on Monday. Follow up with primary care provider in 3-5 days. Return to ED sooner if any worsening or concerns. Increase oral fluids. Please return to the ED for any worsening symptoms harming yourself or others or any concerns. Referrals: Abiel Clark [Primary Care Provider] - Discharge Data Discharge Date/Time-TO BE ENTERED AT DEPARTURE: 04/04/20 16:50 Medical Decision Making <ALEXANDRIA Gale - Last Filed: 04/05/20 08:02> This is a 39-year-old female, known noncompliance, presenting to the ER for lower chest pain and abdominal pain. She reports that this feels very similar to previous pancreatic flareups. She has no cardiac history. She reports that she has been sober for approximately 1 year. Clinically she appears well, nontoxic, no acute distress. I do believe that her pain is more likely GI, pancreatitis, etc. then what would be an atypical presentation of ACS. Given her chief complaint, multiple comorbidities, noncompliance, I will initiate a cardiac work-up, x-ray of the chest, CT imaging of the abdomen and pelvis. She will be given 1 L IV fluid. She will also be given a GI cocktail. Patient reports no improvement with the GI cocktail. Laboratory values reveal a white blood cell count of 11.84 hemoglobin 14.5 hematocrit 43.0 platelet count 278. INR 1.0 sodium 133 potassium 2.8 anion gap 6.1. Creatinine 0.73 with a GFR greater than 60. Glucose 109. Magnesium 1.7. AST 41 ALT 43 alkaline phosphatase 159, lipase 12. Urine is unremarkable, tox screen negative, alcohol level less than 3.0. X-ray of chest unremarkable as read by radiology. CT imaging of abdomen and pelvis reveals mild pericolonic stranding adjacent to the descending and sigmoid colon could reflect mild colitis. Additionally there is fluid within nondistended small bowel without significant inflammation. Stable chronic pancreatitis. Intrauterine contraceptive device within the uterus. Clinically patient did have an episode of diarrhea however she does not appear clinically to have an acute colitis. Upon reviewing previous records, it appears that the patient has had a DVT. She is noncompliant with all of her medications. She presented with a heart rate of 108. We will add on a D-dimer. D-dimer within normal range, no need for CTA. I was able to review previous records from [facility]. It appears as though the stent was placed on 12-12-[address] imaging, x-ray, laboratory values with patient. Patient now requests that we transfer her to [facility] so that she may have her stent taken out of her pancreas. Patient is unsure but believes that her stent was placed 1-2 years ago, was only supposed to be in for 6 weeks. I explained to the patient that given her presentation today, CT findings, etc., I did not have an emergent indication for transfer to another facility. I explained to her that she would need to contact her surgeon and have her stent taken out electively at a time and date that is convenient for herself and her surgeon. Patient is becoming angry, tearful, stating I do not know why you just cannot transfer me now. I do not have a ride. Patient is requesting medication for pain, nausea, and now anxiety. Patient to be given 30 IV Toradol, 25 IV Phenergan. D-dimer is currently pending. I did explain to the patient although my suspicion for ACS is low I do believe a 3-hour repeat troponin is reasonable. I was able to receive records from [facility] regarding her stent placement. I have a call placed to GI now to see if they recommend anything else today. I was called into the patient exam room. She was sitting at the end of her stretcher crying. She reports I really think I need to be admitted upstairs. When I asked her why, she states I do not know. Patient states I do not feel safe going home. Patient denies any suicidal or homicidal ideations. She is unable to tell me exactly why she feels unsafe. She tells me that when she was in [place] over the past few months that she did receive some psychiatric care but is unable to give me any additional information. She does tell me that there is no one trying to harm her. Patient is tearful, very upset. She tells me I cannot just leave here and walk home. I personally spoke with care management and requested that they come evaluate her as well. I also requested a psychiatric evaluation through [facility]. I was able to speak with the GI fellow at [facility]. She was able to personally review the CT images. She believes that the patient can be safely discharged from a pancreatic stent standpoint and does recommend outpatient follow-up. I have placed the patient on the care management list to help expedite outpatient primary care follow-up as well as GI follow-up at [facility]. Care management evaluated the patient. Please see their note. Repeat troponin less than 0.05 Mental health evaluated the patient. Please see their note. They are currently looking into voluntary placement options versus safety plan home and outpatient follow-up on Monday. Because admission is a potential, Covid swab was obtained. Medical Records Medical records reviewed: Yes I reviewed the patient's medical records. Lab Data Lab results reviewed: Yes I reviewed the patient's lab results. Lab results narrative: Laboratory Tests Range/Units 04/04/20 04/04/20 04/04/20 11:43 11:43 11:43 WBC (4.4-10.8) 10^3/uL 11.84 H RBC (3.93-5.22) 10^6/uL 4.62 Hgb (11.2-15.7) g/dL 14.5 Hct (36.0-46.0) % 43.0 MCV (80-95) fL 93.1 MCH (27.0-33.0) pg 31.4 MCHC (32.0-36.0) % 33.7 RDW (11.7-14.6) % 12.4 Plt Count (130-400) 10^3/uL 278 MPV (8.0-11.0) fL 11.0 Immature Gran % 0.7 Neutrophils % 76.6 Lymphocytes % 16.9 Monocytes % 5.2 Eosinophils % 0.3 Basophils % 0.3 Nucleated RBC % % 0 Absolute Neutrophils (1.2-6.7) 10^3/uL 9.07 H Absolute Lymphocytes (1.2-3.4) 10^3/uL 2.00 Absolute Monocytes (0.1-0.8) 10^3/uL 0.62 Absolute Eosinophils (0.0-0.7) 10^3/uL 0.04 Absolute Basophils (0.0-0.2) 10^3/uL 0.04 PT (9.3-11.0) sec 10.4 INR (0.9-1.1) 1.0 APTT (21.0-31.4) sec 22.6 D-Dimer (<500) ng/mlFEU Sodium (136-145) mmol/L 133 L Potassium (3.5-5.1) mmol/L 3.8 Chloride (98-107) mmol/L 100 Carbon Dioxide (21.0-32.0) mmol/L 26.9 Anion Gap (3-11) mmol/L 6.1 BUN (7-18) mg/dL 3 L Creatinine (0.55-1.02) mg/dL 0.73 Estimated GFR/1.73 m2 (mL/min/1.73m2) >= 60.00 Glucose (74-106) mg/dL 109 H Calcium (8.5-10.1) mg/dL 8.9 Magnesium (1.8-2.4) mg/dL 1.7 L Total Bilirubin (0.2-1.0) mg/dL 0.3 AST (15-37) U/L 41 H ALT (14-59) U/L 43 Alkaline Phosphatase (46-116) U/L 159 H Troponin I (<0.06) ng/mL < 0.05 Total Protein (6.4-8.2) g/dL 6.7 Albumin (3.4-5.0) g/dL 3.8 Lipase (73-393) U/L 12 Urine Color (Yellow) Urine Clarity (Clear) Urine pH (5-8) Ur Specific [place] (1.005-1.025) Urine Protein (Negative) mg/dL Urine Ketones (Negative) mg/dL Urine Blood (Negative) Urine Nitrite (Negative) Urine Bilirubin (Negative) Urine Urobilinogen (Up TO 0.2) EU/dL Ur Leukocyte Esterase (Negative) Urine Glucose (Negative) mg/dL Urine Opiates Screen (Negative) Urine Methadone Screen (Negative) Ur Barbiturates Screen (Negative) Ur Tricyclics Screen (Negative) Ur Amphetamines Screen (Negative) U Benzodiazepines Scrn (Negative) Urine Cocaine Screen (Negative) Ur THC Screen (Negative) Ethyl Alcohol (<3) mg/dL Range/Units 04/04/20 04/04/20 04/04/20 11:43 11:43 12:04 WBC (4.4-10.8) 10^3/uL RBC (3.93-5.22) 10^6/uL Hgb (11.2-15.7) g/dL Hct (36.0-46.0) % MCV (80-95) fL MCH (27.0-33.0) pg MCHC (32.0-36.0) % RDW (11.7-14.6) % Plt Count (130-400) 10^3/uL MPV (8.0-11.0) fL Immature Gran % Neutrophils % Lymphocytes % Monocytes % Eosinophils % Basophils % Nucleated RBC % % Absolute Neutrophils (1.2-6.7) 10^3/uL Absolute Lymphocytes (1.2-3.4) 10^3/uL Absolute Monocytes (0.1-0.8) 10^3/uL Absolute Eosinophils (0.0-0.7) 10^3/uL Absolute Basophils (0.0-0.2) 10^3/uL PT (9.3-11.0) sec INR (0.9-1.1) APTT (21.0-31.4) sec D-Dimer (<500) ng/mlFEU 230 Sodium (136-145) mmol/L Potassium (3.5-5.1) mmol/L Chloride (98-107) mmol/L Carbon Dioxide (21.0-32.0) mmol/L Anion Gap (3-11) mmol/L BUN (7-18) mg/dL Creatinine (0.55-1.02) mg/dL Estimated GFR/1.73 m2 (mL/min/1.73m2) Glucose (74-106) mg/dL Calcium (8.5-10.1) mg/dL Magnesium (1.8-2.4) mg/dL Total Bilirubin (0.2-1.0) mg/dL AST (15-37) U/L ALT (14-59) U/L Alkaline Phosphatase (46-116) U/L Troponin I (<0.06) ng/mL Total Protein (6.4-8.2) g/dL Albumin (3.4-5.0) g/dL Lipase (73-393) U/L Urine Color (Yellow) Urine Clarity (Clear) Urine pH (5-8) Ur Specific [place] (1.005-1.025) Urine Protein (Negative) mg/dL Urine Ketones (Negative) mg/dL Urine Blood (Negative) Urine Nitrite (Negative) Urine Bilirubin (Negative) Urine Urobilinogen (Up TO 0.2) EU/dL Ur Leukocyte Esterase (Negative) Urine Glucose (Negative) mg/dL Urine Opiates Screen (Negative) Negative Urine Methadone Screen (Negative) Negative Ur Barbiturates Screen (Negative) Negative Ur Tricyclics Screen (Negative) Negative Ur Amphetamines Screen (Negative) Negative U Benzodiazepines Scrn (Negative) Negative Urine Cocaine Screen (Negative) Negative Ur THC Screen (Negative) Negative Ethyl Alcohol (<3) mg/dL < 3.0 Range/Units 04/04/20 04/04/20 12:04 14:46 WBC (4.4-10.8) 10^3/uL RBC (3.93-5.22) 10^6/uL Hgb (11.2-15.7) g/dL Hct (36.0-46.0) % MCV (80-95) fL MCH (27.0-33.0) pg MCHC (32.0-36.0) % RDW (11.7-14.6) % Plt Count (130-400) 10^3/uL MPV (8.0-11.0) fL Immature Gran % Neutrophils % Lymphocytes % Monocytes % Eosinophils % Basophils % Nucleated RBC % % Absolute Neutrophils (1.2-6.7) 10^3/uL Absolute Lymphocytes (1.2-3.4) 10^3/uL Absolute Monocytes (0.1-0.8) 10^3/uL Absolute Eosinophils (0.0-0.7) 10^3/uL Absolute Basophils (0.0-0.2) 10^3/uL PT (9.3-11.0) sec INR (0.9-1.1) APTT (21.0-31.4) sec D-Dimer (<500) ng/mlFEU Sodium (136-145) mmol/L Potassium (3.5-5.1) mmol/L Chloride (98-107) mmol/L Carbon Dioxide (21.0-32.0) mmol/L Anion Gap (3-11) mmol/L BUN (7-18) mg/dL Creatinine (0.55-1.02) mg/dL Estimated GFR/1.73 m2 (mL/min/1.73m2) Glucose (74-106) mg/dL Calcium (8.5-10.1) mg/dL Magnesium (1.8-2.4) mg/dL Total Bilirubin (0.2-1.0) mg/dL AST (15-37) U/L ALT (14-59) U/L Alkaline Phosphatase (46-116) U/L Troponin I (<0.06) ng/mL < 0.05 Total Protein (6.4-8.2) g/dL Albumin (3.4-5.0) g/dL Lipase (73-393) U/L Urine Color (Yellow) Yellow Urine Clarity (Clear) Clear Urine pH (5-8) 6.0 Ur Specific [place] (1.005-1.025) 1.010 Urine Protein (Negative) mg/dL Negative Urine Ketones (Negative) mg/dL Negative Urine Blood (Negative) Negative Urine Nitrite (Negative) Negative Urine Bilirubin (Negative) Negative Urine Urobilinogen (Up TO 0.2) EU/dL 0.2 Ur Leukocyte Esterase (Negative) Negative Urine Glucose (Negative) mg/dL Negative Urine Opiates Screen (Negative) Urine Methadone Screen (Negative) Ur Barbiturates Screen (Negative) Ur Tricyclics Screen (Negative) Ur Amphetamines Screen (Negative) U Benzodiazepines Scrn (Negative) Urine Cocaine Screen (Negative) Ur THC Screen (Negative) Ethyl Alcohol (<3) mg/dL ECG Data Attestation: I personally reviewed and interpreted this ECG (s) as follows: Interpretation: Please see official report by Dr. Guzman. Sinus rhythm, ventricular of 98. No STEMI. <Sumi Naranjo - Last Filed: 04/04/20 20:54> Care signed out to me from outgoing provider ALEXANDRIA Pappas pending mental health disposition. Please see his official HPI and physical. [id number]: Spoke with Kamar with [facility] regarding psych placement, at this time there are no beds available she recommends patient coming into [facility] on Monday for re- evaluation instead of her being admitted for 48 hours. She believes being discharged with her is safe at this time. Call transferred into room for Kamar to speak with patient. Patient discharged to home with instructions to follow-up with [facility] human services on Monday as directed. Instructed to return to the ED for any worsening chest pain, abdominal pain, fever any thoughts of harming herself or others, or any concerns. Patient was alert and oriented and cooperative and hemodynamically stable at the time of this dictation. Patient discharged in the care of her . HPI <ALEXANDRIA Gale - Last Filed: 04/05/20 08:02> General Mode of arrival: ambulatory . Date/Time Provider Initiated Documentation: 04/04/20 11:36 . Limitations to Documentation: no limitations . Information obtained by: patient and family . HPI Narrative: This is a 39-year-old female who presents with her for evaluation. She is a rather vague and poor historian. She admits that she has not been taking any of her medications for nearly 1 year. Was in [place] roughly 1 month ago, diag nosed with diabetes and has been not compliant with the Metformin that was prescribed. She states that she lives here, does not have a primary care provider. She has a past medical history that includes pancreatitis, alcohol abuse, sober x1 year, alcoholic hepatitis, anxiety, hemorrhagic pancreatitis, pseudocyst of the pancreas, seizure disorder which she states is typically associated with withdrawal from alcohol, current smoker, thrombocytopenia. Patient is presenting today for both lower chest pain and upper abdominal pain. She reports the pain in her chest began roughly 8 days ago has been intermittent in nature. Nothing makes it better or worse. It is sharp and stabbing when present. Does not radiate anywhere. She states that 3 days later she began with the upper abdominal discomfort, nausea, vomiting. She did have a episode of diarrhea as well. She states this feels extremely similar to her previous episodes of pancreatitis. She denies any cardiac history. Denies fever, shortness of breath, cough, back pain, change in urinary habits, dysuria, blood in her stool, black tarry stools, numbness, tingling, weakness. Related Data Home Medications Medication Instructions Recorded Confirmed V-C Forte 1 cap PO DAILY 04/04/20 04/04/20 atorvastatin 40 mg PO DAILY 04/04/20 04/04/20 cholecalciferol (vitamin D3) 1 unit PO Q7D 04/04/20 04/04/20 metformin 500 mg PO DAILY 04/04/20 04/04/20 promethazine 12.5 mg PO Q8H PRN PRN 04/04/20 04/04/20 thiamine HCl (vitamin B1) [Vitamin 100 mg PO BID 04/04/20 04/04/20 B-1] topiramate 50 mg PO DAILY 04/04/20 04/04/20 Allergies Allergy/AdvReac Type Severity Reaction Status Date / Time amoxicillin Allergy Unverified 04/04/20 11:51 codeine Allergy Unverified 04/04/20 11:51 General Stated Complaint: GenMedical JAMEEL: 2 Review of Systems <ALEXANDRIA Gale - Last Filed: 04/05/20 08:02> Constitutional Constitutional: Denies fatigue, Denies fever(s) and Denies headache(s) ENT Ears, Nose, Mouth, and Throat: Denies headache(s) and Denies neck pain Cardiovascular Cardiovascular: Reports chest pain and Denies dyspnea Respiratory Respiratory: Denies cough and Denies dyspnea Gastrointestinal Gastrointestinal: Reports abdominal pain, Reports diarrhea, Reports nausea and Reports vomiting Genitourinary Genitourinary: Denies dysuria Musculoskeletal Musculoskeletal: Denies back pain and Denies neck pain Integumentary/Breasts Skin/Breast: Denies rash Neurologic Neurologic: Denies headache(s) Endocrine Endocrine: Denies fatigue [facility] <ALEXANDRIA Gale - Last Filed: 04/05/20 08:02> Medical History (Updated 04/04/20 @ 15:52 by ALEXANDRIA Gale) Acute pancreatitis Alcohol abuse Alcoholic hepatitis Anxiety Chronic pancreatitis DVT (deep venous thrombosis) Hemorrhagic pancreatitis History of DVT (deep vein thrombosis) Pancreatic pseudocyst Pancreatitis Seizure disorder Smoker Thrombocytopenia Withdrawal seizures Surgical History H/O chest tube placement H/O esophagogastroduodenoscopy H/O LEEP Family History Other Adopted Social History Smoking/Tobacco Use Status: Current every day Tobacco Type: cigarettes Tobacco: How many years used: 21 Alcohol Intake: former Drug use: Occasionally Substance use type: marijuana Do you feel safe at home: Yes Do you feel safe in your relationship?: Yes Additional Social history: Patient is and has 2 children ages 13 and 14. Moved here from [place] approximately 2 years ago, now lives in [place]. 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 Reports ongoing alcohol use. 30+-pack-year history of smoking. Exam <ALEXANDRIA Gale - Last Filed: 04/05/20 08:02> Const General: cooperative, healthy appearing, comfortable and no acute distress Orientation: alert, awake and oriented x3 HENMT Head: normal to inspection, normocephalic and atraumatic Mouth: moist mucous membranes Eyes Conjunctivae: conjunctivae normal Sclera: sclerae normal Neck Neck: normal visual inspection, full ROM, trachea midline and supple Chest Chest: normal palpation of entire chest wall and no tenderness Resp Effort & Inspection: normal respiratory effort and able to speak in complete sentences Auscultation: clear to auscultation bilaterally Cardio Rate: regular rate Rhythm: regular rhythm GI Inspection: normal to inspection Palpation: soft, not firm, no guarding, no masses, not rigid and tender in the epigastrum and in the LUQ; with no rebound tenderness Auscultation: normal bowel sounds Back/Spine/Pelvis Back: No back tenderness Skin General skin exam: no rashes or lesions noted Neuro General: patient alert, patient awake, patient oriented x3, moves all extremities and no focal motor deficits Cognition: normal cognition Speech: speech normal Gait: normal gait Motor: muscle tone normal throughout Sensory Exam: no sensory deficits noted Extrem General: normal to inspection, full ROM, capillary refill normal, no pedal edema and no calf tenderness Psych Appearance: grossly normal Mental Status: mental status grossly normal Course <ALEXANDRIA Gale - Last Filed: 04/05/20 08:02> Vital Signs Vital signs: Vital Signs Temperature 37.1 C 04/04/20 11:42 Pulse 96 H 04/04/20 11:42 Respiratory Rate 19 04/04/20 11:42 Blood Pressure 118/79 04/04/20 11:42 Pulse Oximetry 98 04/04/20 11:42 Temperature 37.1 C 04/04/20 11:42 Temperature Source Temporal Artery Scan 04/04/20 11:42 Pulse 96 H 04/04/20 11:42 Respiratory Rate 19 04/04/20 11:42 Respiratory Effort Non-Labored 04/04/20 11:49 Blood Pressure 118/79 04/04/20 11:42 Blood Pressure Position Supine 04/04/20 11:42 Pulse Oximetry 98 04/04/20 11:42 Oxygen Delivery Method Room Air 04/04/20 11:42 Oxygen Flow Rate 0 04/04/20 11:42 Pain Level 6 04/04/20 11:42 Sign Out <ALEXANDRIA Gale - Last Filed: 04/05/20 08:02> Sign Out Data: Sign Out Comment: Awaiting mental health disposition. Last updated by Johnny Back PA at 04/04/20 15:48
--- NOTE | 2020-04-04 12:00 | DI.CT_ITS ---
EXAM: CT ABDOMEN PELVIS W CLINICAL HISTORY: epigastric/luq pain, hx on pancreatic cyst/ stent TECHNIQUE: Imaging Protocol: Axial computed tomography images with coronal and sagittal reformatted images were created and reviewed CONTRAST MATERIAL: Intravenous: Omnipaque 350 Contrast volume:100 mL Oral: No COMPARISON: CT CT ABDOMEN PELVIS W from 11/14/2019 FINDINGS: ABDOMEN: Lung Bases: Normal where visualized. Liver: Normal density. No measurable mass. Portal, Superior Mesenteric, and Splenic Veins: Unremarkable. Gallbladder and Biliary Tract: No radiodense calculus or dilation. Pancreas: There is again seen marked atrophy of the pancreas with numerous pancreatic calcifications present suggesting chronic pancreatitis. There is unchanged prominence of the pancreatic duct. Spleen: Normal. Adrenals: No masses seen. Kidneys: Normal size, contour and axis. No radiodense stones or obstructive uropathy. No masses seen. Abdominal Aorta: Abdominal portion non-dilated. Atherosclerosis. Bowel: No evidence of obstruction. There is mild bowel wall thickening and pericolonic stranding see n in the distal transverse colon and descending colon. This may represent a mild colitis. Appendix is unremarkable. There is a large amount of stool seen in the colon. Peritoneal Cavity: No ascites, collection or mesenteric inflammatory response. Lymph Nodes: Unchanged mildly enlarged nodule seen in the lavonne hepatis region. These may reflect en larged lymph nodes. They are stable compared to 11/14/2019. Bones: Mild degenerative changes are seen in the spine. Soft Tissues: Unremarkable. PELVIS: Bladder: Symmetric distention, no gross wall thickening. Reproductive Organs: There is again seen an intrauterine device in place. Lymph Nodes: Please see above. Bones: Please see above. IMPRESSION: 1. Stable findings most suggestive of chronic pancreatitis. 2. Mild pericolonic stranding seen around the descending and sigmoid colon which may reflect a mild c olitis. RADIATION DOSE DELIVERED: 466.77mGy.cm Total DLP DATA REPOSITORY: All CT scans at this facility are submitted to the National Radiology Data Registry (NRDR) Dose Index Registry (DIR) with the [employer] (A[employer]). RADIATION OPTIMIZATION: All CT scans at this facility use at least one of these dose optimization te chniques: automated exposure control; mA and/or kV adjustment per patient size (includes targeted exa ms where dose is matched to clinical indication); or iterative reconstruction.
[2020-04-04 12:01] LABS: Abs Immature Grans 0.08 10^3/uL (0.0-0.06); Absolute Monocyte Count 0.62 10^3/uL (0.1-0.8); Basophils % 0.3; Eosinophils % 0.3; HGB 14.5 g/dL (11.2-15.7); Immature Grans % 0.7; Lymphocytes % 16.9; MCH 31.4 pg (27.0-33.0); MCHC 33.7 % (32.0-36.0); MCV 93.1 fL (80-95); Monocytes % 5.2; Neutrophils % 76.6; Nucleated RBC 0 %; Platelet Count 278 10^3/uL (130-400); RBC 4.62 10^6/uL (3.93-5.22); RDW 12.4 % (11.7-14.6); RDW-SD 42.6 fL; WBC 11.84 10^3/uL (4.4-10.8)
[2020-04-04 12:04] LABS: Absolute Basophil Count 0.04 10^3/uL (0.0-0.2); Absolute Eosinophil Count 0.04 10^3/uL (0.0-0.7); Absolute Neutrophil Count 9.07 10^3/uL (1.2-6.7)
[2020-04-04] MEDS: Normal Saline 1,000 ML 1000 ML IV (12:07)
[2020-04-04 12:11] LABS: Bilirubin Negative (Negative); Blood Negative (Negative); Clarity Clear (Clear); Glucose Negative (Negative); Ketones Negative (Negative); Leukocyte Esterase Negative (Negative); Nitrite Negative (Negative); Urobilinogen 0.2 EU/dL (Up TO 0.2)
[2020-04-04 12:15] LABS: PTT Activated 22.6 sec (21.0-31.4); Prothrombin Time 10.4 sec (9.3-11.0)
[2020-04-04 12:23] LABS: ALT 43 U/L (14-59); AST 41 U/L (15-37); Albumin 3.8 g/dL (3.4-5.0); Alkaline Phosphatase 159 U/L (46-116); Anion Gap 6.1 mmol/L (3-11); BUN 3 mg/dL (7-18); Bilirubin, Total 0.3 mg/dL (0.2-1.0); CO2 26.9 mmol/L (21.0-32.0); CREATININE 0.73 mg/dL (0.55-1.02); Calcium 8.9 mg/dL (8.5-10.1); Chloride 100 mmol/L (98-107); ETHANOL BLOOD < 3.0 mg/dL (<3); Glucose 109 mg/dL (74-106); Lipase 12 U/L (73-393); Magnesium 1.7 mg/dL (1.8-2.4); Potassium 3.8 mmol/L (3.5-5.1); Sodium 133 mmol/L (136-145); Total Protein 6.7 g/dL (6.4-8.2)
[2020-04-04 12:23] LABS: *AMPHETAMINES SCREEN URINE Negative (Negative); *BARBITURATES SCREEN URINE Negative (Negative); *BENZODIAZEPINES SCREEN URINE Negative (Negative); Cannabinoids THC Negative (Negative); Cocaine Screen,Urine Negative (Negative); METHADONE URINE SCREEN Negative (Negative); OPIATES URINE SCREEN Negative (Negative)
[2020-04-04 12:24] LABS: Troponin I < 0.05 ng/mL (<0.06)
[2020-04-04 12:24] LABS: Tricyclic Antidepressants Negative (Negative)
[2020-04-04] MEDS: Omnipaque 350 MG/ML 100 ML BTL IJ (12:48)
[2020-04-04] MEDS: Normal Saline Flush 10 ML SYR IVP (12:49)
--- NOTE | 2020-04-04 12:53 | DI.RAD_ITS ---
EXAM: XR CHEST 2V PA LATERAL CLINICAL HISTORY: chest pain TECHNIQUE: 2D digital imaging was performed. COMPARISON: CR XR CHEST 2V PA LATERAL from 06/10/2019 FINDINGS: MEDIASTINUM: Normal. HEART: Normal. PULMONARY VASCULATURE: Normal. LUNGS: Clear. PLEURAL SPACE: No pleural effusion or pneumothorax. BONE:Normal. OTHER FINDINGS:Normal. IMPRESSION: No acute pulmonary findings. DATA REPOSITORY: RADIATION DOSE DELIVERED:
--- NOTE | 2020-04-04 13:26 | DI.VRAD_ITS ---
PROCEDURE INFORMATION: Exam: CT Abdomen And Pelvis With Contrast Exam date and time: 04/04/2020 12:14 PM Age: 39 years old Clinical indication: Abdominal pain TECHNIQUE: Imaging protocol: Computed tomography of the abdomen and pelvis with intravenous contrast. COMPARISON: CT ABDOMEN PELVIS W 11/14/2019 11:57 AM FINDINGS: Liver: Left lobe of liver is elongated, unchanged and partially wraps around spleen which is likely a normal variation. Gallbladder and bile ducts: Normal. No calcified stones. No ductal dilation. Pancreas: There are stable and diffuse punctate and dystrophic calcifications in pancreas, most pronounced in head of pancreas. Slight prominence of pancreatic duct is stable and likely sequela of chronic pancreatitis. Spleen: Normal. No splenomegaly. Adrenals: Normal. No mass. Kidneys and ureters: Normal. No hydronephrosis. Stomach and bowel: There is mild stool volume in rectum. There is mucosal thickening and mild pericolonic stranding in descending and sigmoid colon. There is mild to moderate stool burden in proximal large bowel, most pronounced in cecum. Small bowel is nondilated with mild fluid within lumen. Mild mucosal thickening of gastric antrum and pylorus stable. Appendix: See Reproductive finding. Intraperitoneal space: Unremarkable. No free air. No significant fluid collection. Vasculature: See Reproductive finding. Lymph nodes: Unremarkable. No enlarged lymph nodes. Urinary bladder: Unremarkable as visualized. Reproductive: Uterus is anteverted with a T-shaped intrauterine device within endometrial lumen. There are calcified phleboliths. Adnexa are grossly unremarkable. Stomach is nondistended, otherwise unremarkable. Appendix is unremarkable (image 48 series 4). Bones/joints: Unremarkable. No acute fracture. Soft tissues: There is small fat containing umbilical hernia. IMPRESSION: 1. Mild pericolonic stranding adjacent to descending and sigmoid colon could reflect mild colitis. Additionally, there is fluid within nondistended small bowel without significant inflammation. 2. Stable chronic pancreatitis. 3. Intrauterine contraceptive device within uterus. Dictated and Authenticated by: Perfecto Murillo MD. Ordering:CAMRON Turner MD
--- NOTE | 2020-04-04 13:27 | DI.VRAD_ITS ---
PROCEDURE INFORMATION: Exam: XR Chest, 2 Views Exam date and time: 04/04/2020 1:00 PM Age: 39 years old Clinical indication: Shortness of breath; Patient HX: SOB TECHNIQUE: Imaging protocol: XR of the chest Views: 2 views. COMPARISON: No relevant prior studies available. FINDINGS: Lungs: Unremarkable. No consolidation. Pleural space: Unremarkable. No pleural effusion. No pneumothorax. Heart/Mediastinum: Unremarkable. No cardiomegaly. Bones/joints: Unremarkable. IMPRESSION: No acute findings. Dictated and Authenticated by: Perfecto Murillo MD. Ordering:CAMRON Turner MD
[2020-04-04] MEDS: Ketorolac 30 MG/ML VIAL IVP (13:35)
[2020-04-04 14:40] LABS: D-Dimer 230 ng/mlFEU (<500)
--- NOTE | 2020-04-04 15:06 | NUR.NOTE ---
4860 Pt marcos prakash, stating I need to be admitted upstairs. I don't feel right and I want to be fixed--On further conversation pt states she was admitted to a psych unit at [facility] last month for bipolar disorder. She has not taken any of her medications since then and I don't feel right. I need to be admitted upstairs.---Hannah IBRAHIM notified.Nursing Note:
[2020-04-04 15:14] LABS: Troponin I < 0.05 ng/mL (<0.06)
[2020-04-05 07:49] LABS: COVID-19 RT-PCR UVMMC Result Negative (Negative)
--- NOTE | 2020-04-05 07:57 | PDOC.MHCN ---
Date of service: 04/04/20 Time of Service: 14:40 Mental Health Crisis Note Presenting Issue How did you arrive at the ED and why did you come: Patient arrived at the ED due to chest and abdominal pain. After nothing was discovered physically wrong patient shared that she was anxious and not feeling safe. Precipitating Factors Patient denies SI/HI. Patient shared that she does not feel right and thinks that she needs to be back on her medication. Patient stated that she was in the hospital in [place] but her father picked her up and brought her home before treatment was complete.Patient shared that she does not feel safe but couldn't explain why. This clinician inquired about patient reaching out to her PCP, patient does not have a doctor in this state. Patient's shared that she has been acting younger lately, asking for permission to do things. Patients shared this has been on going and he does not know how to help her. This clinician reached out to hospitals to look at inpatient however no admissions were happening over the weekend. Disposition BEHAVIOR: very emotional EYE CONTACT: poor MOOD: sad, anxious AFFECT: broad APPETITE: hard to make myself eat SLEEP(trouble falling/staying asleep: not sleeping good Plan [facility] will call patient Monday morning to complete an new evaluation and proceed with hospitals and conect patient with PCP and therapy list for the area. ED doctor, care management and patient/ are on board with this plan. Signature Clinician's Name/Title: Kamar TIWARI
--- NOTE | 2020-04-06 07:42 | NUR.NOTE ---
0742 04/06/20 called patient's cellphone and left message to return call to ed for covid test results.
--- NOTE | 2020-04-07 09:09 | NUR.NOTE ---
Nursing Note: negative COVID result given over the phone to pt after identity confirmed.
== END 2020-04-04 16:50 | disposition still patient (30) ==
PROVIDERS: Physician Assistant; Emergency Provider Registered Nurse Emergency; PCP Family Medicine
DX: R07.89 Other chest pain (principal); R10.10 Upper abdominal pain, unspecified; F31.9 Bipolar disorder, unspecified; R11.2 Nausea with vomiting, unspecified; E11.9 Type 2 diabetes mellitus without complications; Z79.84 Long term (current) use of oral hypoglycemic drugs; T38.3X6A Underdosing of insulin and oral hypoglycemic [antidiabetic] drugs, initial encounter; Z91.128 Patient's intentional underdosing of medication regimen for other reason; Z03.818 Encounter for observation for suspected exposure to other biological agents ruled out
CPT/HCPCS: 36415; 80053; 80307; 81025; 83690; 93005; 96361; 96365; 96375; 99285; U0003; 71046; 74177; 80320; 81003; 83735; 84484; 85025; 85379; 85610; 85730; 93010; J1885; J3490

== ENCOUNTER 2020-04-18 10:08 | Emergency (ER) | payer MEDICAID, SELFPAY ==
[2020-04-18] VITALS (10 sets, daily range): BP systolic 113–125; BP diastolic 70–99; PULSE 77–99; RESP 8–18; TEMP 36.5–36.6; O2SAT 99–100
--- NOTE | 2020-04-18 10:00 | RT.EKG_ITS ---
APPROVED REPORT Exam: Resting ECG Patient Location: E HR:81 bpm ECG Measurements Heart Rate 81 AXIS OK 135 P 39 QRSd 78 QRS 75 QT 363 T 51 QTc 423 Conclusion Sinus rhythm...normal P axis, V-rate 60- 99
--- NOTE | 2020-04-18 10:01 | ED.GENADUL_ITS ---
Discharge Plan Disposition Patient Disposition: HOME Condition: Good Discharge Details Clinical Impression: Abdominal pain, Hypomagnesemia, Blood glucose elevated Primary Care Provider: Abiel Clark ED Provider: Candida Menjivar Home Meds and New Rx's Prescriptions: Continued atorvastatin 40 mg tablet 40 mg PO DAILY RF: 0 metformin 500 mg tablet 500 mg PO DAILY RF: 0 promethazine 12.5 mg tablet 12.5 mg PO Q8H PRN PRNRF: 0 thiamine HCl (vitamin B1) [Vitamin B-1] 100 mg Tablet 100 mg PO BID RF: 0 topiramate 50 mg tablet 50 mg PO DAILY RF: 0 cholecalciferol (vitamin D3) 1,250 mcg (50,000 unit) capsule 1 unit PO Q7D RF: 0 V-C Forte 1 mg capsule 1 cap PO DAILY RF: 0 Discharge Instructions Instructions: Abdominal Pain (ED) Additional Instructions: Encourage water intake. Use Tylenol and ibuprofen as needed for discomfort. Your labs are reassuring and do not see any evidence of acute issues with your pancreas today. You need to call gastroenterology at [facility] as well as your primary care on Monday to schedule close follow-up appointment. If you develop inability stay hydrated, fever/chills, increased pain or other new/worsening symptoms please seek care urgently once again. [facility] [place]: [phone] Referrals: Abiel Clark [Primary Care Provider] - Discharge Data Discharge Date/Time-TO BE ENTERED AT DEPARTURE: 04/18/20 12:00 Medical Decision Making Patient is a 40-year-old female presented with concern for epigastric and lower chest pain. Patient was seen here for the same on 04/04/2028. States that the pain has persisted since then but patient was thinking that she had actually been seen here several months ago. Past medical history is pertinent for pancreatic pseudocyst. Drain was placed in November 2018 and patient was lost to follow-up. She has not had this removed. Patient believes the drain needs to come out. She did undergo imaging when she was here last week. At that time, there is no pericolonic stranding since is not consistent with history of exam. Patient did not have an elevated lipase. Patient was advised to follow-up with gastroenterology as well as her primary care. Patient reports she is not have had time to make these phone calls and has not scheduled follow-up appointments. No diarrhea or other change in bowel habits. On exam, patient appears uncomfortable. She appears nontoxic. She is slightly tachycardic with a heart rate of 99. Abdominal exam is concerning for some epigastric and left upper quadrant pain. No peritoneal findings on exam. No CVA tenderness. Plan to obtain baseline labs. I am concerned for potential pancreatic involvement given her history. I did review the department records. It sounds that gastroenterology had rechecked the patient multiple times after her surgery last year and patient was while follow-up. They had recommended having the stent removed 6 weeks after it was placed. The stent is not visualized on her recent CT scan. Will hold off on repeat imaging at this time as she recently underwent imaging and has no inge toneal findings on eam. Patient was given IV fluids and IV acetaminophen. Labs reviewed. No leukocytosis. Stable H&H. Again odium slightly low at 134, again patient has been receiving hydration here which should help to replenish this. She appears well-hydrated. Glucose is elevated at 250 and she does have glucose in her urine. Patient does not have a history of diabetes. She has been elevated historically. Symptoms may be associate with stress response. Magnesium slightly low at 1.60 we will replenish this orally. Alk phos elevated 148, this is baseline for the patient. Lipase within normal limits. Troponin is less than 0.05. Reevaluated the patient. She appears much more comfortable. Vital signs within normal limits. I discussed with her that she needs to abstain from alcohol. She denies any recent alcohol intake but she did have EtOH on board and testing. This is a fairly minimal amounts but may be evidence of alcohol consumption last night. She has to smoke marijuana is unclear how frequent this is. I did discuss she can have recurrent abdominal discomfort associated with that as well. Patient does not feel that these 2 things are laying. More concerning, as the patient's retained pancreatic stent and her lack of follow-up with gastroenterology. I reiterated the recommendations made by my colleague a few days ago. Return precautions were discussed. Patient will be discharged home. All the questions and concerns were discussed and she is in agreement this plan. HPI General Mode of arrival: EMS . Date/Time Provider Initiated Documentation: 04/18/20 10:20 . Limitations to Documentation: no limitations . Information obtained by: patient, EMS, RN notes reviewed and old records reviewed . History of Present Illness 40 year old F presents to the emergency department with the chief complaint of epigastric pain, described as severe and similar to prior episodes, Quality is described as stabbing, and is localized to the abdomen. Patient reports no radiation. Patient started experiencing this week(s) and it has been constant. No relieving factors improve symptom(s), No exacerbating factors reported . Patient notes chest pain (lower chest/epigastric area) and loss of appetite; denies cough, diaphoresis, fever/chills, nausea/vomiting, shortness of breath and weakness. Patient did receive the following treatments prior to arrival, none Related Data Home Medications Medication Instructions Recorded Confirmed V-C Forte 1 cap PO DAILY 04/04/20 04/04/20 atorvastatin 40 mg PO DAILY 04/04/20 04/04/20 cholecalciferol (vitamin D3) 1 unit PO Q7D 04/04/20 04/04/20 metformin 500 mg PO DAILY 04/04/20 04/04/20 promethazine 12.5 mg PO Q8H PRN PRN 04/04/20 04/04/20 thiamine HCl (vitamin B1) [Vitamin 100 mg PO BID 04/04/20 04/04/20 B-1] topiramate 50 mg PO DAILY 04/04/20 04/04/20 Allergies Allergy/AdvReac Type Severity Reaction Status Date / Time amoxicillin Allergy Unverified 04/04/20 11:51 codeine Allergy Unverified 04/04/20 11:51 General JAMEEL: 2 Review of Systems Constitutional Constitutional: Reports as per HPI, Denies chills, Denies fatigue, Denies fever(s), Denies headache(s) and Reports poor appetite ENT Ears, Nose, Mouth, and Throat: Denies headache(s) Cardiovascular Cardiovascular: Reports as per HPI, Denies chest pain and Denies dyspnea Respiratory Respiratory: Reports as per HPI, Denies cough and Denies dyspnea Gastrointestinal Gastrointestinal: Reports as per HPI Musculoskeletal Musculoskeletal: Reports as per HPI and Denies back pain Integumentary/Breasts Skin/Breast: Reports as per HPI and Denies rash Neurologic Neurologic: Reports as per HPI and Denies headache(s) Endocrine Endocrine: Denies fatigue [facility] Medical History (Updated 04/18/20 @ 11:53 by ALEXANDRIA Briceno) Acute pancreatitis Alcohol abuse Alcoholic hepatitis Anxiety Chronic pancreatitis DVT (deep venous thrombosis) Hemorrhagic pancreatitis History of DVT (deep vein thrombosis) Pancreatic pseudocyst Pancreatitis Seizure disorder Smoker Thrombocytopenia Withdrawal seizures Surgical History H/O chest tube placement H/O esophagogastroduodenoscopy H/O LEEP Family History Other Adopted Social History Smoking/Tobacco Use Status: Current every day Tobacco Type: cigarettes Tobacco: How many years used: 21 Smoking risk assessment performed?: Yes Alcohol Intake: former Drug use: Occasionally Substance use type: marijuana Do you feel safe at home: Yes Do you feel safe in your relationship?: Yes Additional Social history: Patient is and has 2 children ages 13 and 14. Moved here from [place] approximately 2 years ago, now lives in [place]. She is a [id number] mother. Reports ongoing alcohol use. 30+-pack-year history of smoking. Exam Const General: cooperative, healthy appearing, uncomfortable, no acute distress and well developed Nutritional Appearance: average body habitus and well nourished Orientation: alert and awake HENMT Head: normal to inspection Mouth: moist mucous membranes Resp Effort & Inspection: normal respiratory effort, able to speak in complete se ntences and no respiratory distress Auscultation: clear to auscultation bilaterally, no rales, no rhonchi and no wheezes Cardio Rate: regular rate Rhythm: regular rhythm Heart Sounds: S1 normal and S2 normal GI Inspection: normal to inspection, no edema and non-distended Palpation: soft, no hepatosplenomegaly, not firm, no guarding, no hernias, no masses, not rigid and tender in the epigastrum and in the LUQ; Taveras's sign negative and with no rebound tenderness Percussion: normal to percussion Auscultation: normal bowel sounds Back/Spine/Pelvis Back: no CVA tenderness Skin General skin exam: no rashes or lesions noted Trauma: no lacerations or abrasions Neuro General: patient alert and patient awake Cognition: normal cognition Speech: speech normal Gait: normal gait Extrem General: normal to inspection, no pedal edema and no calf tenderness Psych Appearance: grossly normal and well kempt Mental Status: mental status grossly normal Speech and Movement: speech and movement normal
[2020-04-18] MEDS: Lactated Ringers 1,000 ML 1000 ML IV (10:20)
[2020-04-18 10:25] LABS: Abs Immature Grans 0.05 10^3/uL (0.0-0.06); Absolute Basophil Count 0.02 10^3/uL (0.0-0.2); Absolute Eosinophil Count 0.03 10^3/uL (0.0-0.7); Absolute Lymphocyte Count 1.63 10^3/uL (1.2-3.4); Absolute Monocyte Count 0.51 10^3/uL (0.1-0.8); Absolute Neutrophil Count 6.31 10^3/uL (1.2-6.7); Basophils % 0.2; Eosinophils % 0.4; HCT 45.5 % (36.0-46.0); HGB 15.5 g/dL (11.2-15.7); Immature Grans % 0.6; Lymphocytes % 19.1; MCH 32.1 pg (27.0-33.0); MCHC 34.1 % (32.0-36.0); MCV 94.2 fL (80-95); MPV 10.7 fL (8.0-11.0); Neutrophils % 73.7; Nucleated RBC 0 %; Platelet Count 258 10^3/uL (130-400); RBC 4.83 10^6/uL (3.93-5.22); RDW 12.8 % (11.7-14.6); RDW-SD 44.1 fL; WBC 8.55 10^3/uL (4.4-10.8)
[2020-04-18 10:44] LABS: ALT 19 U/L (14-59); AST 12 U/L (15-37); Albumin 3.8 g/dL (3.4-5.0); Alkaline Phosphatase 148 U/L (46-116); Anion Gap 11.6 mmol/L (3-11); BUN 5 mg/dL (7-18); Bilirubin, Total 0.4 mg/dL (0.2-1.0); CO2 23.4 mmol/L (21.0-32.0); CREATININE 0.88 mg/dL (0.55-1.02); Calcium 9.2 mg/dL (8.5-10.1); Chloride 99 mmol/L (98-107); ETHANOL BLOOD 5.5 mg/dL (<3); Glucose 250 mg/dL (74-106); Lipase 22 U/L (73-393); Magnesium 1.6 mg/dL (1.8-2.4); Potassium 4.1 mmol/L (3.5-5.1); Sodium 134 mmol/L (136-145); Total Protein 7.2 g/dL (6.4-8.2); Troponin I < 0.05 ng/mL (<0.06)
[2020-04-18] MEDS: ACETAMINOPHEN 1,000 MG/100 ML BTL 400 MG IVPB (10:47)
[2020-04-18 11:09] LABS: Bilirubin Negative (Negative); Blood Negative (Negative); Clarity Clear (Clear); Glucose 500 mg/dL (Negative); Ketones Negative (Negative); Leukocyte Esterase Negative (Negative); Nitrite Negative (Negative); Specific Gravity 1.015 (1.005-1.025); Urobilinogen 0.2 EU/dL (Up TO 0.2); pH 5.5 (5-8)
[2020-04-18] MEDS: Magnesium Oxide 400 MG TAB PO (12:02)
== END 2020-04-18 12:00 | disposition home or self-care (01) ==
PROVIDERS: Emergency Provider Physician Assistant; PCP Family Medicine
DX: R10.13 Epigastric pain (principal); E83.42 Hypomagnesemia; R73.9 Hyperglycemia, unspecified; R10.12 Left upper quadrant pain
CPT/HCPCS: 80053; 83690; 93005; 96361; 96365; 99284; 80320; 81003; 83735; 84484; 85025; 93010; J0131

== ENCOUNTER 2021-09-28 10:53 | Inpatient (IN) | payer MEDICAID, SELFPAY ==
[2021-09-28] VITALS (10 sets, daily range): BP systolic 116–141; BP diastolic 70–98; PULSE 62–98; RESP 18; TEMP 36.6–37.9; O2SAT 97–100
[2021-09-28 11:30] LABS: Bilirubin Negative (Negative); Blood Negative (Negative); Clarity Clear (Clear); Glucose 500 mg/dL (Negative); Ketones Negative (Negative); Leukocyte Esterase Negative (Negative); Nitrite Negative (Negative); Specific Gravity 1.015 (1.005-1.025); Urobilinogen 0.2 EU/dL (Up TO 0.2)
--- NOTE | 2021-09-28 11:30 | DI.CT_ITS ---
Exam(s) CT ABDOMEN PELVIS W EXAM: CT ABDOMEN PELVIS W CLINICAL HISTORY: epigastric abdominal pain, prior pancreatitis, n/v TECHNIQUE: Imaging Protocol: Axial computed tomography images with coronal and sagittal reformatted images were created and reviewed CONTRAST MATERIAL: Intravenous: Omnipaque 350 Contrast volume:100 mL Oral: No COMPARISON: CT CT ABDOMEN PELVIS W from 04/04/2020 FINDINGS: ABDOMEN: Lung Bases: Normal where visualized. Liver: Normal density. No measurable mass. Portal, Superior Mesenteric, and Splenic Veins: Unremarkable. Gallbladder and Biliary Tract: No radiodense calculus or dilation. Pancreas: There is atrophy of the pancreas. Pancreatic calcifications are present consistent with ch ronic pancreatitis. There is resultant mild dilatation of the pancreatic duct. Mild stranding is se en around the superior aspect of the pancreatic head suggesting acute pancreatitis. No focal fluid c ollection is seen to suggest abscess or pseudocyst. Spleen: Normal. Adrenals: No masses seen. Kidneys: Normal size, contour and axis. No radiodense stones or obstructive uropathy. No masses seen. Abdominal Aorta: Abdominal portion non-dilated. Atherosclerosis. Bowel: No obstruction or bowel wall thickening. Appendix is unremarkable. Peritoneal Cavity: No ascites, collection or mesenteric inflammatory response. No free air. Lymph Nodes: Within normal limits. Bones: Within normal limits for the patient's age. Soft Tissues: Unremarkable. PELVIS: Bladder: Symmetric distention, no gross wall thickening. Reproductive Organs: An IUD is in good position. There does appear to be a corpus luteal cyst on the right ovary. Lymph Nodes: Within normal limits. Bones: Within normal limits for the patient's age. IMPRESSION: 1. There is very mild stranding seen around the head of the pancreas suspicious for acute pancreatiti s. 2. Results of this exam have been verbally communicated with provider. RADIATION DOSE DELIVERED: 666.86mGy.cm Total DLP DATA REPOSITORY: All CT scans at this facility are submitted to the National Radiology Data Registry (NRDR) Dose Index Registry (DIR) with the [employer] ([employer]). RADIATION OPTIMIZATION: All CT scans at this facility use at least one of these dose optimization te chniques: automated exposure control; mA and/or kV adjustment per patient size (includes targeted exa ms where dose is matched to clinical indication); or iterative reconstruction.
[2021-09-28] MEDS: Lactated Ringers 1,000 ML 1000 ML IV ×2 (11:35→14:35)
[2021-09-28 11:40] LABS: Abs Immature Grans 0.04 10^3/uL (0.0-0.06); Absolute Basophil Count 0.02 10^3/uL (0.0-0.2); Absolute Eosinophil Count 0.02 10^3/uL (0.0-0.7); Absolute Lymphocyte Count 1.88 10^3/uL (1.2-3.4); Absolute Monocyte Count 0.47 10^3/uL (0.1-0.8); Absolute Neutrophil Count 7.15 10^3/uL (1.2-6.7); Basophils % 0.2; Eosinophils % 0.2; HCT 45.6 % (36.0-46.0); HGB 15.6 g/dL (11.2-15.7); Immature Grans % 0.4; Lymphocytes % 19.6; MCH 31.7 pg (27.0-33.0); MCHC 34.2 % (32.0-36.0); MCV 92.7 fL (80-95); MPV 10.4 fL (8.0-11.0); Monocytes % 4.9; Neutrophils % 74.7; Nucleated RBC 0 %; Platelet Count 325 10^3/uL (130-400); RBC 4.92 10^6/uL (3.93-5.22); RDW 13.4 % (11.7-14.6); RDW-SD 45.7 fL; WBC 9.58 10^3/uL (4.4-10.8)
[2021-09-28] MEDS: Ondansetron 4 MG/2 ML VIAL IVP ×2 (11:48→20:03)
[2021-09-28] MEDS: HYDROmorphone 2 MG/ML VIAL 1 MG IVP ×3 (11:52→18:07)
[2021-09-28 11:54] LABS: ALT 29 U/L (14-59); AST 25 U/L (15-37); Albumin 4.2 g/dL (3.4-5.0); Alkaline Phosphatase 186 U/L (46-116); Anion Gap 7.8 mmol/L (3-11); BUN 4 mg/dL (7-18); Bilirubin, Total 0.5 mg/dL (0.2-1.0); CO2 28.2 mmol/L (21.0-32.0); CREATININE 0.7 mg/dL (0.55-1.02); Calcium 9.5 mg/dL (8.5-10.1); Chloride 101 mmol/L (98-107); Glucose 197 mg/dL (74-106); Potassium 3.9 mmol/L (3.5-5.1); Sodium 137 mmol/L (136-145)
[2021-09-28 11:56] LABS: Lipase < 10 U/L (73-393)
--- NOTE | 2021-09-28 11:58 | W.ED.GENAD ---
Discharge Plan Disposition Patient Disposition: [facility] INPATIENT Condition: Serious Discharge Details Chief Complaint: Nausea/Vomit/Diar Clinical Impression: Acute pancreatitis, Hyperglycemia Primary Care Provider: Abiel Clark ED Provider: Earl Guzman Home Meds and New Rx's Prescriptions: No Action No Known Home Meds 0RF Medical Decision Making 1200 --41-year-old female with history of pancreatitis in the past, here with upper abdominal pain and nausea vomiting, not tolerating oral intake this morning, tender diffusely. Concern for likely flare of pancreatitis. Consider acute surgical process including pancreatic abscess. Plan to obtain CT of the abdomen pelvis. I will initiate treatment with antiemetic, Zofran 4 mg IV as well analgesic Dilaudid 1 mg IV and IV fluid bolus. 1333 --CT the abdomen pelvis was interpreted by radiology: Mild pancreatitis head of the pancreas, no abscess. Labs reviewed and normal lipase. Normal LFTs. Patient does have elevated blood glucose 197 and glucosuria with no anion gap. No h/o DM. Patient reassessed and still with nausea and pain. Will give additional IVF, dilaudid 1mg and add reglan IV. --Patient was reassessed and continues to have pain and nausea. Plan to admit for pain control, IV fluid and bowel rest. Case was discussed with hospitalist on-call, Dr. Flores, discussed ED presentation and course, he will admit the patient. Care transitioned at time of admission. Lab Data Lab results reviewed: Yes I reviewed the patient's lab results. Labs: Laboratory Tests Range/Units 09/28/21 09/28/21 09/28/21 11:24 11:35 11:35 WBC (4.4-10.8) 10^3/uL 9.58 RBC (3.93-5.22) 10^6/uL 4.92 Hgb (11.2-15.7) g/dL 15.6 Hct (36.0-46.0) % 45.6 MCV (80-95) fL 92.7 MCH (27.0-33.0) pg 31.7 MCHC (32.0-36.0) % 34.2 RDW (11.7-14.6) % 13.4 Plt Count (130-400) 10^3/uL 325 MPV (8.0-11.0) fL 10.4 Immature Gran % 0.4 Neutrophils % 74.7 Lymphocytes % 19.6 Monocytes % 4.9 Eosinophils % 0.2 Basophils % 0.2 Nucleated RBC % % 0 Absolute Neutrophils (1.2-6.7) 10^3/uL 7.15 H Absolute Lymphocytes (1.2-3.4) 10^3/uL 1.88 Absolute Monocytes (0.1-0.8) 10^3/uL 0.47 Absolute Eosinophils (0.0-0.7) 10^3/uL 0.02 Absolute Basophils (0.0-0.2) 10^3/uL 0.02 Sodium (136-145) mmol/L 137 Potassium (3.5-5.1) mmol/L 3.9 Chloride (98-107) mmol/L 101 Carbon Dioxide (21.0-32.0) mmol/L 28.2 Anion Gap (3-11) mmol/L 7.8 BUN (7-18) mg/dL 4 L Creatinine (0.55-1.02) mg/dL 0.7 Estimated GFR/1.73 m2 (mL/min/1.73m2) >= 60.00 Glucose (74-106) mg/dL 197 H Calcium (8.5-10.1) mg/dL 9.5 Magnesium (1.8-2.4) mg/dL 2.0 Total Bilirubin (0.2-1.0) mg/dL 0.5 AST (15-37) U/L 25 ALT (14-59) U/L 29 Alkaline Phosphatase (46-116) U/L 186 H Total Protein (6.4-8.2) g/dL 8.0 Albumin (3.4-5.0) g/dL 4.2 Lipase (73-393) U/L < 10 Urine Color (Yellow) Yellow Urine Clarity (Clear) Clear Urine pH (5-8) 7.0 Ur Specific [place] (1.005-1.025) 1.015 Urine Protein (Negative) mg/dL Negative Urine Ketones (Negative) mg/dL Negative Urine Blood (Negative) Negative Urine Nitrite (Negative) Negative Urine Bilirubin (Negative) Negative Urine Urobilinogen (Up TO 0.2) EU/dL 0.2 Ur Leukocyte Esterase (Negative) Negative Urine Glucose (Negative) mg/dL 500 H HPI General Mode of arrival: ambulatory. Date/Time Provider Initiated Documentation: 09/28/21 11:19. Limitations to Documentation: no limitations. Information obtained by: patient. HPI Narrative: 41-year-old female with history of alcohol abuse in the past, hemorrhagic pancreatitis in the past, here with upper abdominal pain. Patient states that upper abdominal pain started a couple days ago and has persisted. She developed nausea and vomiting this morning. Vomiting was severe. She has no associated tingling in her arms and legs. Denies associated fever. Patient notes similar to flare of pancreatitis in the past. She notes has had about 3 flares of pancreatitis and not recently. Patient notes she continues to drink alcohol but only has a couple drinks per week. Related Data Home Medications Medication Instructions Recorded Confirmed Unknown [No Known Home Meds] 09/28/21 09/28/21 Allergies Allergy/AdvReac Type Severity Reaction Status Date / Time amoxicillin Allergy Unverified 09/28/21 11:14 codeine Allergy Unverified 09/28/21 11:14 General Stated Complaint: Nausea/Vomit/Diar JAMEEL: 3 Review of Systems All systems reviewed & are unremarkable except as noted in HPI and below Constitutional Constitutional: Denies fever(s) Gastrointestinal Gastrointestinal: Reports as per HPI, Denies melena and Denies hematochezia PFSH All Active Problems (Updated 09/28/21 @ 17:16 by Earl Guzman MD) Acute pancreatitis (Acute) Hyperglycemia (Acute) Productive cough (Acute) Ambulatory dysfunction (Acute) Urinary incontinence (Acute) DVT prophylaxis (Acute) Smoker (Acute) Thrombocytopenia (Chronic) Alcoholic hepatitis (Acute) Tachycardia (Acute) Nausea & vomiting (Acute) Healthcare-associated pneumonia (Acute) Alcohol withdrawal (Acute) Altered mental state (Acute) Acute hyponatremia (Acute) Pancreatic pseudocyst (Chronic) Chronic pancreatitis (Chronic) DVT prophylaxis (Acute) Anxiety (Chronic) History of DVT (deep vein thrombosis) (Chronic) Alcohol abuse (Chronic) Acute pancreatitis (Acute) Medical History (Updated 09/28/21 @ 17:16 by Earl Guzman MD) DVT (deep venous thrombosis) Pancreatitis Seizure disorder Surgical History H/O chest tube placement H/O esophagogastroduodenoscopy H/O LEEP Family History Other Adopted Social History Smoking/Tobacco Use Status: Current every day Tobacco Type: cigarettes Tobacco: How many years used: 21 Smoking risk assessment performed?: Yes Alcohol Intake: former Drug use: Occasionally Substance use type: marijuana Do you feel safe at home: Yes Do you feel safe in your relationship?: Yes Additional Social history: Patient is and has 2 children ages 13 and 14. Moved here from [place] approximately 2 years ago, now lives in [place]. 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 Reports ongoing alcohol use. 30+-pack-year history of smoking. Exam Const General: cooperative and no acute distress HENMT Mouth: mucous membranes dry Eyes Conjunctivae: normal conjunctivae Sclera: normal sclerae Resp Auscultation: clear to auscultation bilaterally, no rales, no rhonchi and no wheezes Cardio Rate: regular rate and not tachycardic Rhythm: regular rhythm GI Inspection: non-distended Palpation: soft, not firm, no guarding, no masses, not rigid and tender (Diffusely, worse upper) Negative for with no rebound tenderness Skin General skin exam: no rashes or lesions noted Neuro General: patient alert, patient awake, patient oriented x3 and tone normal Extrem General: no edema Psych Appearance: grossly normal Mental Status: mental status grossly normal Speech and Movement: speech and movement normal Course Vital Signs Vital signs: Vital Signs Temperature 36.8 C 09/28/21 11:06 Pulse 97 H 09/28/21 11:06 Respiratory Rate 18 09/28/21 11:06 Blood Pressure 124/84 09/28/21 11:06 Pulse Oximetry 100 09/28/21 11:06 Temperature 36.8 C 09/28/21 11:06 Temperature Source Temporal Artery Scan 09/28/21 11:06 Pulse 97 H 09/28/21 11:06 Respiratory Rate 18 09/28/21 11:06 Respiratory Effort Non-Labored 09/28/21 11:12 Blood Pressure 124/84 09/28/21 11:06 Blood Pressure Position Sitting 09/28/21 11:06 Pulse Oximetry 100 09/28/21 11:06 Oxygen Delivery Method Room Air 09/28/21 11:06 Oxygen Flow Rate 0 09/28/21 11:06 Pain Level 9 09/28/21 11:52 Lab/Test Results Lab/Test Results: Laboratory Tests Range/Units 09/28/21 09/28/21 09/28/21 11:24 11:35 11:35 WBC (4.4-10.8) 10^3/uL 9.58 RBC (3.93-5.22) 10^6/uL 4.92 Hgb (11.2-15.7) g/dL 15.6 Hct (36.0-46.0) % 45.6 MCV (80-95) fL 92.7 MCH (27.0-33.0) pg 31.7 MCHC (32.0-36.0) % 34.2 RDW (11.7-14.6) % 13.4 Plt Count (130-400) 10^3/uL 325 MPV (8.0-11.0) fL 10.4 Immature Gran % 0.4 Neutrophils % 74.7 Lymphocytes % 19.6 Monocytes % 4.9 Eosinophils % 0.2 Basophils % 0.2 Nucleated RBC % % 0 Absolute Neutrophils (1.2-6.7) 10^3/uL 7.15 H Absolute Lymphocytes (1.2-3.4) 10^3/uL 1.88 Absolute Monocytes (0.1-0.8) 10^3/uL 0.47 Absolute Eosinophils (0.0-0.7) 10^3/uL 0.02 Absolute Basophils (0.0-0.2) 10^3/uL 0.02 Sodium (136-145) mmol/L 137 Potassium (3.5-5.1) mmol/L 3.9 Chloride (98-107) mmol/L 101 Carbon Dioxide (21.0-32.0) mmol/L 28.2 Anion Gap (3-11) mmol/L 7.8 BUN (7-18) mg/dL 4 L Creatinine (0.55-1.02) mg/dL 0.7 Estimated GFR/1.73 m2 (mL/min/1.73m2) >= 60.00 Glucose (74-106) mg/dL 197 H Calcium (8.5-10.1) mg/dL 9.5 Magnesium (1.8-2.4) mg/dL 2.0 Total Bilirubin (0.2-1.0) mg/dL 0.5 AST (15-37) U/L 25 ALT (14-59) U/L 29 Alkaline Phosphatase (46-116) U/L 186 H Total Protein (6.4-8.2) g/dL 8.0 Albumin (3.4-5.0) g/dL 4.2 Lipase (73-393) U/L < 10 Urine Color (Yellow) Yellow Urine Clarity (Clear) Clear Urine pH (5-8) 7.0 Ur Specific [place] (1.005-1.025) 1.015 Urine Protein (Negative) mg/dL Negative Urine Ketones (Negative) mg/dL Negative Urine Blood (Negative) Negative Urine Nitrite (Negative) Negative Urine Bilirubin (Negative) Negative Urine Urobilinogen (Up TO 0.2) EU/dL 0.2 Ur Leukocyte Esterase (Negative) Negative Urine Glucose (Negative) mg/dL 500 H POC- Test(urine) Negative PAWSS Have you Been Recently Intoxicated or Drunk Within the Last 30 days?: No Have you Ever Experienced Previous Episodes of Alcohol Withdrawal?: Yes Have you ever Experienced Withdrawal Seizures?: Yes Have you ever Experienced Delirium Tremens(DT)s?: Yes Have you ever undergone Alcohol Rehabilitation Treatment (i.e, inpt ot outpatient treatment programs)?: Yes Have you ever Experienced Blackouts?: Yes Have you ever Combined Alcohol with other Downers within the last 90 days?: No Have you ever Combined Alcohol with any other Substance of Abuse during the last 90 days?: No Positive Blood Alcohol level on Presentation? [PCS.BAL]: No Evidence of Increased Autonomic Activity (i.e. HR>120, tremor, sweating, agitation, nausea)?: Yes Result: 6
[2021-09-28] MEDS: Omnipaque 350 MG/ML 100 ML BTL IJ (12:17)
[2021-09-28] MEDS: Metoclopramide 10 MG/2 ML VIAL IVP (14:34)
--- NOTE | 2021-09-28 14:41 | NUR.NOTE ---
Requesting IV be moved. 20 g started in right wrist.
[2021-09-28] MEDS: Lactated Ringers 1,000 ML 150 ML IV ×2 (15:20→23:36)
[2021-09-28] MEDS: ACETAMINOPHEN 1,000 MG/100 ML BTL 400 MG IVPB (15:50)
[2021-09-28 18:03] LABS: Source Nasal/Nares
--- NOTE | 2021-09-28 18:50 | HPE_ITS ---
Date of service: 09/28/21 Time of Service: 18:50 Assessment and Plan Assessment and plan (1) Acute pancreatitis: Status: Acute Assessment and plan: 3 previous episodes, one with hemorrhage. Appears to be acute on chronic. Pain and nausea management. Clear liquid diet; advance as tolerated. Discussed possible need for pancreatic enzyme replacement. Strict avoidance of alcohol encouraged. (2) Chronic pancreatitis: Status: Chronic Assessment and plan: See above. May need pancreatic enzyme replacement. Random glucose elevated; may be d/t stress of vomiting / cortisol elevation. Also may be indicative of pancreatic dysfunction from chronic pancreatitis. Monitor glucose Q6H. (3) Blood glucose elevated: Status: Inactive Assessment and plan: See above. (4) Anxiety: Status: Chronic Assessment and plan: Not currently on medication. Ativan 0.5mg po Q6 hours prn. (5) Smoker: Status: Acute Assessment and plan: Nicoderm 14mg patch daily. Encourage cessation. History of Present Illness History of Present Illness Chief Complaint: Upper abdominal pain Narrative: This is a 41 yo female with a PMH of recurrent acute on chronic pancreatitis / hemorrhagic on an occasion, alcohol abuse, tobacco abuse, anxiety, alcohol withdrawal seizure. She presented to the ED with epigastric to LUQ abd pain that began appx 2 days prior to presentation. + nausea and unrelenting emesis on the morning of admission. No fever, diarrhea, hemetemesis. She endorses ongoing alcohol use but not daily; 2 drinks / week. In the ED her lipase was below the limit of detection. WBC count normal. Glucose 197 CT abd/pelvis showed mild pancreatitis at head of pancreas. Vital Signs Temperature ?36.8 C ?09/28/21 11:06 Pulse ?97 H ?09/28/21 11:06 Respiratory Rate ?18 ?09/28/21 11:06 C Blood Pressure ?124/84 ?09/28/21 11:06 Pulse Oximetry ?100 ?09/28/21 11:06 She was administered zofran with little effect for her nausea. Reglan then given with better results. IV dilaudid administered for pain. She endorsed being thirsty and requested a carly zahra. Admitted for pain control, nausea treatment and monitoring. PFSH All Active Problems (Updated 09/28/21 @ 17:16 by Earl Guzman MD) Acute pancreatitis (Acute) Hyperglycemia (Acute) Productive cough (Acute) Ambulatory dysfunction (Acute) Urinary incontinence (Acute) DVT prophylaxis (Acute) Smoker (Acute) Thrombocytopenia (Chronic) Alcoholic hepatitis (Acute) Tachycardia (Acute) Nausea & vomiting (Acute) Healthcare-associated pneumonia (Acute) Alcohol withdrawal (Acute) Altered mental state (Acute) Acute hyponatremia (Acute) Pancreatic pseudocyst (Chronic) Chronic pancreatitis (Chronic) DVT prophylaxis (Acute) Anxiety (Chronic) History of DVT (deep vein thrombosis) (Chronic) Alcohol abuse (Chronic) Acute pancreatitis (Acute) Medical History (Updated 09/28/21 @ 17:16 by Earl Guzman MD) DVT (deep venous thrombosis) Pancreatitis Seizure disorder Surgical History H/O chest tube placement H/O esophagogastroduodenoscopy H/O LEEP Family History Other Adopted Social History Smoking/Tobacco Use Status: Current every day Tobacco Type: cigarettes Tobacco: How many years used: 21 Smoking risk assessment performed?: Yes Alcohol Intake: former Drug use: Occasionally Substance use type: marijuana Do you feel safe at home: Yes Do you feel safe in your relationship?: Yes Additional Social history: Patient is and has 2 children ages 13 and 14. Moved here from [place] approximately 2 years ago, now lives in [place]. She is a [id number] mother. Reports ongoing alcohol use. 30+-pack-year history of smoking. Meds Allergies and Home Medications Allergies Allergy/AdvReac Type Severity Reaction Status Date / Time amoxicillin Allergy Unverified 09/28/21 11:14 codeine Allergy Unverified 09/28/21 11:14 Home Medications Medication Instructions Recorded Confirmed Type Unknown [No Known Home Meds] 09/28/21 09/28/21 History Exam Narrative Exam Narrative: Sitting upright on gurney in the ED Const General: cooperative and ill appearing Nutritional Appearance: average body habitus Orientation: oriented x3 Eyes General: appearance normal, both eyes and all related structures Sclera: sclerae normal Resp Effort & Inspection: normal respiratory effort Auscultation: clear to auscultation bilaterally Cardio Rate: regular rate Rhythm: regular rhythm Heart Sounds: S1 normal and S2 normal GI Palpation: soft, not firm, no guarding and tender in the epigastrum and in the LUQ Skin General skin exam: no rashes or lesions noted Extrem General: no pedal edema and no calf tenderness Psych Appearance: grossly normal Mental Status: mental status grossly normal Speech and Movement: speech and movement normal Affect: normal affect Results Labs Result diagrams: 09/29/21 05:48 09/29/21 05:48 Labs: Laboratory Results - last 24 hr 09/28/21 09/28/21 09/28/21 11:24 11:35 11:35 WBC 9.58 RBC 4.92 Hgb 15.6 Hct 45.6 MCV 92.7 MCH 31.7 MCHC 34.2 RDW 13.4 Plt Count 325 MPV 10.4 Immature Gran % 0.4 Neutrophils % 74.7 Lymphocytes % 19.6 Monocytes % 4.9 Eosinophils % 0.2 Basophils % 0.2 Nucleated RBC % 0 Absolute Neutrophils 7.15 H Absolute Lymphocytes 1.88 Absolute Monocytes 0.47 Absolute Eosinophils 0.02 Absolute Basophils 0.02 Sodium 137 Potassium 3.9 Chloride 101 Carbon Dioxide 28.2 Anion Gap 7.8 BUN 4 L Creatinine 0.7 Estimated GFR/1.73 m2 >= 60.00 Glucose 197 H Calcium 9.5 Magnesium 2.0 Total Bilirubin 0.5 AST 25 ALT 29 Alkaline Phosphatase 186 H Total Protein 8.0 Albumin 4.2 Lipase < 10 Urine Color Yellow Urine Clarity Clear Urine pH 7.0 Ur Specific [place] 1.015 Urine Protein Negative Urine Ketones Negative Urine Blood Negative Urine Nitrite Negative Urine Bilirubin Negative Urine Urobilinogen 0.2 Ur Leukocyte Esterase Negative Urine Glucose 500 H COVID-19 Source 09/28/21 17:30 WBC RBC Hgb Hct MCV MCH MCHC RDW Plt Count MPV Immature Gran % Neutrophils % Lymphocytes % Monocytes % Eosinophils % Basophils % Nucleated RBC % Absolute Neutrophils Absolute Lymphocytes Absolute Monocytes Absolute Eosinophils Absolute Basophils Sodium Potassium Chloride Carbon Dioxide Anion Gap BUN Creatinine Estimated GFR/1.73 m2 Glucose Calcium Magnesium Total Bilirubin AST ALT Alkaline Phosphatase Total Protein Albumin Lipase Urine Color Urine Clarity Urine pH Ur Specific [place] Urine Protein Urine Ketones Urine Blood Urine Nitrite Urine Bilirubin Urine Urobilinogen Ur Leukocyte Esterase Urine Glucose COVID-19 Source Nasal/Nares Last Vital Signs Temp 37 C 09/28/21 18:36 Pulse 62 09/28/21 18:36 Resp 18 04/12/22 18:36 BP 116/75 09/28/21 18:36 Pulse Ox 97 09/28/21 18:36 PAWSS Have you Been Recently Intoxicated or Drunk Within the Last 30 days?: No Have you Ever Experienced Previous Episodes of Alcohol Withdrawal?: Yes Have you ever Experienced Withdrawal Seizures?: Yes Have you ever Experienced Delirium Tremens(DT)s?: Yes Have you ever undergone Alcohol Rehabilitation Treatment (i.e, inpt ot outpatient treatment programs)?: Yes Have you ever Experienced Blackouts?: Yes Have you ever Combined Alcohol with other Downers within the last 90 days?: No Have you ever Combined Alcohol with any other Substance of Abuse during the last 90 days?: No Positive Blood Alcohol level on Presentation? [PCS.BAL]: No Evidence of Increased Autonomic Activity (i.e. HR>120, tremor, sweating, agitation, nausea)?: Yes Result: 6
[2021-09-28] MEDS: HYDROmorphone 2 MG/ML SYR 1 MG IVP (20:04)
[2021-09-28] MEDS: Heparin 5,000 UNITS/ML VIAL 5000 UNITS SC (20:05)
[2021-09-28 21:04] LABS: COVID-19 PCR Negative (Negative)
[2021-09-28] MEDS: Melatonin 3 MG TAB 9 MG PO (21:48)
[2021-09-28] MEDS: diphenhydrAMINE 25 MG CAP PO (21:48)
[2021-09-28] MEDS: Acetaminophen 325 MG TAB PO (21:54)
[2021-09-28] MEDS: HYDROmorphone 2 MG TAB PO (23:48)
[2021-09-29] MEDS: Heparin 5,000 UNITS/ML VIAL 5000 UNITS SC ×3 (06:06→22:11)
[2021-09-29] MEDS: Ondansetron 4 MG/2 ML VIAL IVP (06:06)
[2021-09-29] MEDS: Lactated Ringers 1,000 ML 150 ML IV (06:06)
[2021-09-29] MEDS: Normal Saline Flush 10 ML SYR IVP ×3 (06:07→23:30)
[2021-09-29] MEDS: HYDROmorphone 2 MG TAB PO ×2 (06:13→10:33)
[2021-09-29 06:27] LABS: HCT 37.8 % (36.0-46.0); HGB 12.7 g/dL (11.2-15.7); MCH 31.4 pg (27.0-33.0); MCHC 33.6 % (32.0-36.0); MCV 93.3 fL (80-95); MPV 11.1 fL (8.0-11.0); Platelet Count 236 10^3/uL (130-400); RBC 4.05 10^6/uL (3.93-5.22); RDW 13.4 % (11.7-14.6); RDW-SD 46.3 fL
[2021-09-29 06:39] LABS: Anion Gap 5.2 mmol/L (3-11); BUN 5 mg/dL (7-18); CO2 28.8 mmol/L (21.0-32.0); CREATININE 0.6 mg/dL (0.55-1.02); Calcium 8.4 mg/dL (8.5-10.1); Chloride 106 mmol/L (98-107); Glucose 83 mg/dL (74-106); Potassium 3.8 mmol/L (3.5-5.1); Sodium 140 mmol/L (136-145)
[2021-09-29 07:45] VITALS: BP 129/70; PULSE 82; RESP 18; TEMP 36.4; O2SAT 96
[2021-09-29] MEDS: Nicotine 14 MG/24 HR PATCH TD (08:44)
--- NOTE | 2021-09-29 09:11 | INITIAL_ITS ---
- If Service Date Differs Date of service: 09/29/21 Time of Service: 09:11 Care Management Initial Assess REASON FOR HOSPITALIZATION:: Pancreatitis PAST MEDICAL HISTORY/PAST SURGICAL HISTORY:: All Active Problems (Updated 09/28/21 @ 17:16 by Earl Guzman MD). Acute pancreatitis (Acute). Hyperglycemia (Acute). Productive cough (Acute). Ambulatory dysfunction (Acute). Urinary incontinence (Acute). DVT prophylaxis (Acute). Smoker (Acute). Thrombocytopenia (Chronic). Alcoholic hepatitis (Acute). Tachycardia (Acute). Nausea & vomiting (Acute). Healthcare-associated pneumonia (Acute). Alcohol withdrawal (Acute). Altered mental state (Acute). Acute hyponatremia (Acute). Pancreatic pseudocyst (Chronic). Chronic pancreatitis (Chronic). DVT prophylaxis (Acute). Anxiety (Chronic). History of DVT (deep vein thrombosis) (Chronic). Alcohol abuse (Chronic). Acute pancreatitis (Acute). Medical History (Updated 09/28/21 @ 17:16 by Earl Guzman MD). DVT (deep venous thrombosis). Pancreatitis. Seizure disorder. Surgical History . H/O chest tube placement. H/O esophagogastroduodenoscopy. H/O LEEP PREVIOUS FUNCTIONAL STATUS/SOCIAL/FAMILY SUPPORTS:: Zahraa lives in [place] with her Harsh and her two children. Zahraa doesn't drive at this time, but is in the process of getting her license back. Her and daughter help with transportation. CURRENT FUNCTIONAL STATUS:: Zahraa was sitting up in bed when CM met with her. She was alert, oriented and easy to engage in conversation. She shared with CM that she feels that things are going good in terms of limiting her ETOH use and doesn't feel that she would benefit from a Geosciences Associate Professor at this time. She is not interested in tobacco cessation counciling at this time. ADVANCE DIRECTIVES:: None, CM provided pt with AD forms Has patient been provided with info about the portal/API?: Yes Did the patient sign up for the portal?: No CODE STATUS:: Full Code INSURANCE COVERAGE / FINANCIAL ISSUES:: Medicaid PRIMARY CARE PHYSICIAN:: Abiel Clark POTENTIAL DISCHARGE NEEDS:: Follow up appts with community providers. Referral to a Geosciences Associate Professor, Tobacco Cessation specialist (pt declined both community support services at this time). PATIENT/FAMILY EDUCATION NEEDS:: Review discharge instructions, medications, limitations and plan to follow up with community providers. ask me three. TRANSPORTATION:: Via private vehicle with family. PLAN:: Zahraa requires hospitalization for close monitoring and further m edical work up. Anticipate, pt will discharge home when medically ready per provider and follow up with community providers. Zahraa will transport via private vehicle with family.
[2021-09-29] MEDS: diphenhydrAMINE 25 MG CAP PO ×2 (13:12→20:18)
[2021-09-29 15:35] VITALS: BP 138/87; PULSE 72; RESP 18; TEMP 37.1; O2SAT 99
[2021-09-29] MEDS: hydrOXYzine HCL 25 MG TAB PO (17:09)
[2021-09-29] MEDS: Insulin Aspart 300 UNITS/3 ML PEN SC (17:10)
--- NOTE | 2021-09-29 18:42 | W.PM.PROGNOT ---
Date of Service Date of service: 09/29/21 Time of Service: 18:42 Assessment and Plan Assessment and plan (1) Acute pancreatitis: Status: Acute Assessment and plan: 3 previous episodes, one with hemorrhage. Appears to be acute on chronic. Pain and nausea management. Advancing diet. Discussed possible need for pancreatic enzyme replacement. Strict avoidance of alcohol encouraged. (2) Chronic pancreatitis: Status: Chronic Assessment and plan: See above. May need pancreatic enzyme replacement. Random glucose elevated; may be d/t stress of vomiting / cortisol elevation. Also may be indicative of pancreatic dysfunction from chronic pancreatitis. Monitor glucose QACHS now she is eating. (3) Blood glucose elevated: Status: Inactive Assessment and plan: See above. (4) Anxiety: Status: Chronic Assessment and plan: Not currently on medication. Ativan 0.5mg po Q6 hours prn. (5) Smoker: Status: Acute Assessment and plan: Nicoderm 14mg patch daily and prn nicotin cartridge. Encourage cessation. Subjective Subjective Patient reports: no new complaints, pain is less, nausea (improved) and afebrile; denies vomiting or shortness of breath Interval history since last seen: Request a diet Exam Narrative Exam Narrative: Sitting upright on gurney in the ED Const General: cooperative and ill appearing Nutritional Appearance: average body habitus Orientation: oriented x3 HENMT Mouth: mucous membranes dry Eyes General: appearance normal, both eyes and all related structures Conjunctivae: normal conjunctivae Sclera: sclerae normal Resp Effort & Inspection: normal respiratory effort Auscultation: clear to auscultation bilaterally Cardio Rate: regular rate Rhythm: regular rhythm Heart Sounds: S1 normal and S2 normal GI Inspection: non-distended Palpation: soft, not firm, no guarding and tender in the epigastrum and in the LUQ Skin General skin exam: no rashes or lesions noted Neuro General: patient alert, patient awake, patient oriented x3 and tone normal Extrem General: no pedal edema and no calf tenderness Psych Appearance: grossly normal Mental Status: mental status grossly normal Speech and Movement: speech and movement normal Affect: normal affect Objective Last Vital Signs Temp 37.1 C 09/29/21 15:35 Pulse 72 09/29/21 15:35 Resp 18 09/29/21 15:35 BP 138/87 09/29/21 15:35 Pulse Ox 99 09/29/21 15:35 Laboratory Results - last 24 hr 09/28/21 09/29/21 09/29/21 17:30 05:48 05:48 WBC 5.80 D RBC 4.05 Hgb 12.7 D Hct 37.8 MCV 93.3 MCH 31.4 MCHC 33.6 RDW 13.4 Plt Count 236 MPV 11.1 H Sodium 140 Potassium 3.8 Chloride 106 Carbon Dioxide 28.8 Anion Gap 5.2 BUN 5 L Creatinine 0.6 Estimated GFR/1.73 m2 >= 60.00 Glucose 83 D Calcium 8.4 L SARS-CoV-2 (PCR) Negative PAWSS Have you Been Recently Intoxicated or Drunk Within the Last 30 days?: No Have you Ever Experienced Previous Episodes of Alcohol Withdrawal?: Yes Have you ever Experienced Withdrawal Seizures?: Yes Have you ever Experienced Delirium Tremens(DT)s?: No Have you ever undergone Alcohol Rehabilitation Treatment (i.e, inpt ot outpatient treatment programs)?: Yes Have you ever Experienced Blackouts?: No Have you ever Combined Alcohol with other Downers within the last 90 days?: No Have you ever Combined Alcohol with any other Substance of Abuse during the last 90 days?: No Positive Blood Alcohol level on Presentation? [PCS.BAL]: Unable to Obtain Evidence of Increased Autonomic Activity (i.e. HR>120, tremor, sweating, agitation, nausea)?: No Result: 3
[2021-09-29] MEDS: Melatonin 3 MG TAB 9 MG PO (22:11)
[2021-09-29 23:12] VITALS: BP 127/83; PULSE 67; RESP 16; TEMP 36.6; O2SAT 98
[2021-09-30] MEDS: Acetaminophen 325 MG TAB PO ×2 (03:39→16:59)
[2021-09-30] MEDS: Heparin 5,000 UNITS/ML VIAL 5000 UNITS SC ×3 (05:39→21:41)
[2021-09-30 07:06] LABS: HCT 39.9 % (36.0-46.0); HGB 13.4 g/dL (11.2-15.7); MCH 31.3 pg (27.0-33.0); MCHC 33.6 % (32.0-36.0); MCV 93.2 fL (80-95); Platelet Count 243 10^3/uL (130-400); RBC 4.28 10^6/uL (3.93-5.22); WBC 5.91 10^3/uL (4.4-10.8)
[2021-09-30 07:20] VITALS: BP 102/60; PULSE 73; RESP 20; TEMP 36; O2SAT 97
[2021-09-30] MEDS: Nicotine 14 MG/24 HR PATCH TD (07:58)
[2021-09-30] MEDS: hydrOXYzine HCL 25 MG TAB PO ×2 (09:35→21:58)
[2021-09-30] MEDS: Creon, Lipase 6,000 CAPCR 1 CAP PO ×3 (10:50→17:00)
--- NOTE | 2021-09-30 15:36 | PDOC.CMPRO ---
- If Service Date Differs Date of service: 09/30/21 Time of Service: 15:36 Care Management Progress Note S/O: Zahraa is awake, alert and sitting up in bed when CM met with her. Per provider, she may require enzymes for Chronic Pancreatitis. Zahraa may discharge home later this afternoon. CM will continue to support discharge planning needs. A: 41 year old female admitted to [facility] on 09/28/21 for Pancreatitis. P: Anticipate, Zahraa will discharge home when medically ready, per provider. She will follow up with community providers and discharge plan of care as directed. Zahraa will transport via private vehicle with family. Zahraa declines referrals for a Purchasing Internship or Tobacco Cessation specialist at this time.
--- NOTE | 2021-09-30 15:48 | W.PM.PROGNOT ---
Date of Service Date of service: 09/30/21 Time of Service: 15:49 Assessment and Plan Assessment and plan (1) Acute pancreatitis: Status: Acute Assessment and plan: 3 previous episodes, one with hemorrhage. Appears to be acute on chronic. Pain and nausea management. Advancing diet. Add Creon with meals. Strict avoidance of alcohol encouraged. (2) Chronic pancreatitis: Status: Chronic Assessment and plan: See above. Random glucose elevated; may be d/t stress of vomiting / cortisol elevation. Also may be indicative of pancreatic dysfunction from chronic pancreatitis. Monitoring glucose QACHS now she is eating: glucose today: 138 > 108. (3) Blood glucose elevated: Status: Inactive Assessment and plan: See above. (4) Anxiety: Status: Chronic Assessment and plan: Not currently on medication. Ativan 0.5mg po Q6 hours prn. (5) Smoker: Status: Acute Assessment and plan: Nicoderm 14mg patch daily and prn nicotin cartridge. Encourage cessation. Subjective Subjective Patient reports: pain is less, nausea and afebrile; denies vomiting or shortness of breath Interval history since last seen: Tolerating diet. Pain better but still present. Exam Narrative Exam Narrative: Sitting upright in bed. Has breakfast tray. Const General: cooperative Nutritional Appearance: average body habitus Orientation: oriented x3 HENMT Mouth: mucous membranes dry Eyes General: appearance normal, both eyes and all related structures Conjunctivae: normal conjunctivae Sclera: sclerae normal Resp Effort & Inspection: normal respiratory effort Auscultation: clear to auscultation bilaterally Cardio Rate: regular rate Rhythm: regular rhythm Heart Sounds: S1 normal and S2 normal GI Inspection: non-distended Palpation: soft, not firm, no guarding and tender (mild) in the epigastrum and in the LUQ Skin General skin exam: no rashes or lesions noted Neuro General: patient alert, patient awake, patient oriented x3 and tone normal Extrem General: no pedal edema and no calf tenderness Psych Appearance: grossly normal Mental Status: mental status grossly normal Speech and Movement: speech and movement normal Affect: normal affect Objective Last Vital Signs Temp 36 C L 09/30/21 07:20 Pulse 73 09/30/21 07:20 Resp 20 09/30/21 07:20 BP 102/60 09/30/21 07:20 Pulse Ox 97 09/30/21 07:20 Laboratory Results - last 24 hr 09/30/21 06:20 WBC 5.91 RBC 4.28 Hgb 13.4 Hct 39.9 MCV 93.2 MCH 31.3 MCHC 33.6 RDW 13.0 Plt Count 243 MPV 11.0 PAWSS Have you Been Recently Intoxicated or Drunk Within the Last 30 days?: No Have you Ever Experienced Previous Episodes of Alcohol Withdrawal?: Yes Have you ever Experienced Withdrawal Seizures?: Yes Have you ever Experienced Delirium Tremens(DT)s?: No Have you ever undergone Alcohol Rehabilitation Treatment (i.e, inpt ot outpatient treatment programs)?: Yes Have you ever Experienced Blackouts?: No Have you ever Combined Alcohol with other Downers within the last 90 days?: No Have you ever Combined Alcohol with any other Substance of Abuse during the last 90 days?: No Positive Blood Alcohol level on Presentation? [PCS.BAL]: Unable to Obtain Evidence of Increased Autonomic Activity (i.e. HR>120, tremor, sweating, agitation, nausea)?: No Result: 3
[2021-09-30] MEDS: Insulin Aspart 300 UNITS/3 ML PEN SC (17:00)
[2021-09-30] MEDS: LORazepam 0.5 MG TAB PO (17:51)
[2021-09-30 19:45] VITALS: BP 162/72; PULSE 83; RESP 16; TEMP 36.4; O2SAT 99
[2021-09-30] MEDS: Ondansetron 4 MG/2 ML VIAL IVP (20:04)
[2021-09-30] MEDS: diphenhydrAMINE 25 MG CAP PO (20:04)
[2021-09-30 20:10] VITALS: BP 114/74
[2021-09-30] MEDS: Melatonin 3 MG TAB 9 MG PO (21:42)
[2021-09-30 23:15] VITALS: BP 118/76; PULSE 100; RESP 17; TEMP 36.2; O2SAT 97
[2021-10-01] MEDS: Heparin 5,000 UNITS/ML VIAL 5000 UNITS SC ×3 (05:52→22:56)
[2021-10-01 05:57] VITALS: BP 109/71; PULSE 108; RESP 14; TEMP 36.5; O2SAT 97
[2021-10-01 07:52] VITALS: BP 103/55; PULSE 124; RESP 19; TEMP 36.9; O2SAT 96
[2021-10-01] MEDS: Creon, Lipase 6,000 CAPCR 1 CAP PO ×3 (08:15→16:44)
[2021-10-01] MEDS: Nicotine 14 MG/24 HR PATCH TD (08:15)
[2021-10-01] MEDS: Polyethylene Glycol 3350 17 GM PACKET PO (08:22)
[2021-10-01] MEDS: Senna TAB 2 TAB PO (08:23)
--- NOTE | 2021-10-01 10:01 | CMPROGNOTE_ITS ---
- If Service Date Differs Date of service: 10/01/21 Time of Service: 10:01 Care Management Progress Note S/O: Zahraa c/o abdominal discomfort. Per pt, she hasn't had a BM for 7 days. Anticipate she will be discharged home after she has a BM, if abdominal pain improves. CM will continue to support discharge planning needs. A: 41 year old female admitted to [facility] on 09/28/21 for Pancreatitis. P: Anticipate, Zahraa will discharge home when medically ready, per provider. She will follow up with community providers and discharge plan of care as directed. Zahraa will transport via private vehicle with family. Zahraa declines referral's for a [employer] or Tobacco Cessation specialist at this time.
[2021-10-01] MEDS: Acetaminophen 325 MG TAB PO (12:24)
[2021-10-01 15:40] VITALS: BP 113/75; PULSE 93; RESP 16; TEMP 36.7; O2SAT 100
[2021-10-01] MEDS: Insulin Aspart 300 UNITS/3 ML PEN SC (16:43)
--- NOTE | 2021-10-01 17:54 | PGE_ITS ---
Date of Service Date of service: 10/01/21 Time of Service: 17:54 Assessment and Plan Assessment and plan (1) Acute pancreatitis: Status: Acute Assessment and plan: 3 previous episodes, one with hemorrhage. Appears to be acute on chronic. Pain and nausea management. Tolerating regular diet; intake is moderate. Added Creon with meals. Strict avoidance of alcohol encouraged. (2) Chronic pancreatitis: Status: Chronic Assessment and plan: See above. Random glucose elevated; may be d/t stress of vomiting / cortisol elevation. Also may be indicative of pancreatic dysfunction from chronic pancreatitis. Monitoring glucose QACHS now she is eating: glucose today: 138 > 108. (3) Blood glucose elevated: Status: Inactive Assessment and plan: See above. (4) Anxiety: Status: Chronic Assessment and plan: Not currently on medication. Ativan 0.5mg po Q6 hours prn. (5) Smoker: Status: Acute Assessment and plan: Nicoderm 14mg patch daily and prn nicotin cartridge. Encourage cessation. (6) Constipated: Status: Acute Assessment and plan: No BM for several days. Started Miralax and Senna. This may be at least part of the etiology of her abd pain. Subjective Subjective Patient reports: pain is less (now diffuse upper abd pain. ), nausea and afebrile; denies vomiting or shortness of breath Interval history since last seen: Tolerating diet. Pain better but still present. Exam Narrative Exam Narrative: Sitting upright in bed. Has breakfast tray. Const General: cooperative and ill appearing Nutritional Appearance: average body habitus Orientation: oriented x3 HENCO Mouth: mucous membranes dry Eyes General: appearance normal, both eyes and all related structures Conjunctivae: normal conjunctivae Sclera: sclerae normal Resp Effort & Inspection: normal respiratory effort Auscultation: clear to auscultation bilaterally Cardio Rate: regular rate Rhythm: regular rhythm Heart Sounds: S1 normal and S2 normal GI Inspection: non-distended Palpation: soft, not firm, no guarding and tender (mild) in the epigastrum, in the LUQ and in the RUQ Skin General skin exam: no rashes or lesions noted Neuro General: patient alert, patient awake, patient oriented x3 and tone normal Extrem General: no pedal edema and no calf tenderness Psych Appearance: grossly normal Mental Status: mental status grossly normal Speech and Movement: speech and movement normal Affect: normal affect Objective Last Vital Signs Temp 36.7 C 10/01/21 15:40 Pulse 93 H 10/01/21 15:40 Resp 16 10/01/21 15:40 BP 113/75 10/01/21 15:40 Pulse Ox 100 10/01/21 15:40 PAWSS Have you Been Recently Intoxicated or Drunk Within the Last 30 days?: No Have you Ever Experienced Previous Episodes of Alcohol Withdrawal?: Yes Have you ever Experienced Withdrawal Seizures?: Yes Have you ever Experienced Delirium Tremens(DT)s?: No Have you ever undergone Alcohol Rehabilitation Treatment (i.e, inpt ot outpatient treatment programs)?: Yes Have you ever Experienced Blackouts?: No Have you ever Combined Alcohol with other Downers within the last 90 days?: No Have you ever Combined Alcohol with any other Substance of Abuse during the last 90 days?: No Positive Blood Alcohol level on Presentation? [PCS.BAL]: Unable to Obtain Evidence of Increased Autonomic Activity (i.e. HR>120, tremor, sweating, agitati on, nausea)?: No Result: 3
[2021-10-01] MEDS: diphenhydrAMINE 25 MG CAP PO (20:00)
[2021-10-01 20:04] VITALS: BP 123/86; PULSE 85; RESP 14; TEMP 36.4; O2SAT 100
[2021-10-01] MEDS: Melatonin 3 MG TAB 9 MG PO (22:57)
[2021-10-02] MEDS: Heparin 5,000 UNITS/ML VIAL 5000 UNITS SC ×2 (06:13→13:57)
[2021-10-02 06:17] VITALS: BP 98/57; PULSE 112; RESP 14; TEMP 36.4; O2SAT 96
[2021-10-02 07:48] VITALS: BP 108/74; PULSE 125; RESP 19; TEMP 36.8; O2SAT 99
[2021-10-02] MEDS: Creon, Lipase 6,000 CAPCR 1 CAP PO ×3 (08:23→16:32)
[2021-10-02] MEDS: Polyethylene Glycol 3350 17 GM PACKET PO (08:24)
[2021-10-02] MEDS: Nicotine 14 MG/24 HR PATCH TD (08:24)
[2021-10-02] MEDS: Insulin Aspart 300 UNITS/3 ML PEN SC ×2 (11:46→16:32)
[2021-10-02 15:30] VITALS: BP 136/82; PULSE 86; RESP 17; TEMP 36.4; O2SAT 100
--- NOTE | 2021-10-02 16:30 | DSE_ITS ---
Date of service: 10/02/21 Time of Service: 16:30 DS: Diagnosis Discharge Diagnosis (1) Acute pancreatitis: Status: Resolved (2) Chronic pancreatitis: Status: Chronic Asessment and Plan: she needs close follow up for recurrence and she has been advised that she needs total abstinence from alcohol otherwise she will have recurrent pancreatitis w/ grave consequences. She originally had severe pancratitis on her first episode that reportedly led to respirtory failure. (3) Blood glucose elevated: Status: Resolved Asessment and Plan: patient needs outpatient glycohemoglobin A1c to evaluate for DM. glucose here in the hospital has been running between 127 to 165. I suspect that she has DM secondary to her chronic pancreatitis (4) Anxiety: Status: Chronic Asessment and Plan: not currently on treatment. I recommend that she follow up w/ her PCP to discuss her alcohol use and her anxiety disorder. She would benefit from meds that could help curb her appetite for alcohol but she also needs behaviorial counseling which would help her anxiety and her alcoholism (5) Smoker: Status: Acute (6) Constipated: Status: Resolved Asessment and Plan: patient needs to eat high fiber diet and increase her water intake. she can use an OTC fiber substance such as metamucil Discharge Plan Disposition Patient Disposition: HOME Condition: Improving Discharge Details Reason For Visit: Pancreatitis Admit Date/Time: 09/28/21 16:03 Admit Provider: Rajat Flores Attending Provider: Rajat Flores [facility]: This is a 41 yo female with a PMH of recurrent acute on chronic pancreatitis / hemorrhagic on an occasion, alcohol abuse, tobacco abuse, anxiety, alcohol withdrawal seizure. She presented to the ED with epigastric to LUQ abd pain that began appx 2 days prior to presentation.? + nausea and unrelenting emesis on the morning of admission. No fever, diarrhea, hemetemesis.? She endorses ongoing alcohol use but not daily; 2 drinks / week. In the ED her lipase was below the limit of detection.? WBC count normal.? Glucose 197 CT abd/pelvis showed mild pancreatitis at head of pancreas.? She was administered zofran with little effect for her nausea.? Reglan then given with better results.? IV dilaudid administered for pain. She endorsed being thirsty and requested a carly zahra. Admitted for pain control, nausea treatment and monitoring. ? Patient's abdominal pains were treated w/ narcotic analgesics, antiemetics and diet was made NPO initially but then was advanced to clear liquid diet later the same day of her admission and advanced to a regular diet the next day. She was put on pancreatic enzyme replacements. She tolerated her diet advancement and was discharged in improved condition on 10/02/2021. She had complications of constipation probably worsened by her narcotic useage for her pain but responded to laxatives and stool softeners. Patient was advised that she needs total abstinence from alcohol use. she was told to discuss w/ her PCP strategies to help her maintain abstinence including but not limited to use of naltrexone or acamprosate and a rehab counselor or AA. Home Meds and New Rx's Prescriptions: New ondansetron 4 mg tablet,disintegrating 4 mg PO Q6H PRN (Reason: nausea and vomiting) Qty: 20 0RF Discharge Instructions Instructions: Pancreatitis (DC), Alcohol Dependence (DC) Additional Instructions: Please see your primary care provider Dr. Abiel Clark and discuss your issues with pancreatitis as well as your alcohol use. Continued alcohol use will worsen your pancreatitis and lead to further hospitalizations as well as further worsening of your health. For now you should eat foods that are low in fat and gradually increase your diet as tolerated. Jell-O's broths and puddings as well as lots of liquids to keep yourself well-hydrated. You can graduate to solid foods as tolerated but I would avoid any foods that are high in fat or grease as this could precipitate pancreatitis. Stay well-hydrated and eat high-fiber foods to prevent constipation. Stand Alone Forms: Nursing Discharge Form Referrals: Abiel Clark [Primary Care Provider] - (Call the office on 10/04/2021 for follow-up appointment in the next week) Activity:: Activity as Tolerated Equipment/Supplies:: No Equipment Needed Diet:: As Tolerated Discharge Orders Discharge Orders: Discharge Order (Routine); Ordered 10/02/21 Ordered By: Johnny Shaffer Other Ambulatory Orders: Hemoglobin A1C (Routine) Timeframe: 1 Week Facility: [facility] - Location: Laboratory Outpatient Ordered By: Johnny Shaffer Discharge Data Discharge Date/Time-TO BE ENTERED AT DEPARTURE: 10/02/21 16:42 DS: Summary Time Spent with Patient providing and/or coordinating discharge services: Less than 30 minutes Specific discharge activities: counseling on abstinence, completion of dc instructions Status at Discharge Functional status at discharge: independent ambulation Overall status at discharge: patient is progressing back to baseline Mental Status: mental status grossly normal Speech and Movement: speech and movement normal Mood: congruent mood Affect: normal affect Exam Narrative Exam Narrative: Laina is eager to return home. She denies any nausea or vomiting. Abdominal pain has improved still some crampy discomfort but overall very tolerable. She is not requiring any narcotic analgesics. She had a bowel movement this morning. No nausea. Abdomen with normal bowel sounds no distention soft no guarding minimal t enderness in the left upper quadrant. No rebound tenderness. Psych Mental Status: mental status grossly normal Speech and Movement: speech and movement normal Mood: congruent mood Affect: normal affect DS: Data Vitals/I&O Vitals and I&O: Vital Signs Temperature 36.4 C L 10/02/21 15:30 Temperature Source Tympanic 10/02/21 15:30 Pulse 86 10/02/21 15:30 Pulse Rhythm Regular 10/02/21 10:38 Respiratory Rate 17 10/02/21 15:30 Respiratory Effort 10/02/21 10:38 Respiratory Depth Normal 10/02/21 10:38 Respiratory Pattern Normal 10/02/21 10:38 Blood Pressure 136/82 10/02/21 15:30 Blood Pressure Mean 87 09/28/21 12:21 Blood Pressure Position Sitting 09/28/21 11:06 Pulse Oximetry 100 10/02/21 15:30 Oxygen Delivery Method Room Air 10/02/21 15:30 Oxygen Flow Rate 0 10/02/21 15:30 Pain Level 5 10/02/21 15:30 Comment 09/30/21 20:10 Intake & Output 10/01/21 10/02/21 10/02/21 23:59 11:59 23:59 Intake Total 960 / 1200 480 / 960 480 / 960 Balance 960 / 1200 480 / 960 480 / 960 Intake: Oral 960 / 1200 480 / 960 480 / 960 Other: Urine Appearance Clear Clear Stool Size Small Stool Characteristics Hard Voiding Methods Toilet Toilet Imaging CT scan - abdomen: Radiologist's impression: FINDINGS: ABDOMEN: Lung Bases: Normal where visualized. Liver: Normal density. No measurable mass. Portal, Superior Mesenteric, and Splenic Veins: Unremarkable.? Gallbladder and Biliary Tract: No radiodense calculus or dilation. Pancreas: There is atrophy of the pancreas.? Pancreatic calcifications are present consistent with chronic pancreatitis.? There is resultant mild dilatation of the pancreatic duct.? Mild stranding is seen around the superior aspect of the pancreatic head suggesting acute pancreatitis.? No focal fluid col lection is seen to suggest abscess or pseudocyst.? Spleen: Normal. Adrenals: No masses seen. Kidneys: Normal size, contour and axis. No radiodense stones or obstructive uropathy. No masses seen. Abdominal Aorta: Abdominal portion non-dilated. Atherosclerosis. Bowel: No obstruction or bowel wall thickening. Appendix is unremarkable. Peritoneal Cavity: No ascites, collection or mesenteric inflammatory response.? No free air. Lymph Nodes: Within normal limits. Bones: Within normal limits for the patient's age.? Soft Tissues: Unremarkable. PELVIS: Bladder: Symmetric distention, no gross wall thickening. Reproductive Organs: An IUD is in good position.? There does appear to be a corpus luteal cyst on the right ovary.? Lymph Nodes: Within normal limits. Bones: Within normal limits for the patient's age.? IMPRESSION: 1. There is very mild stranding seen around the head of the pancreas suspicious for acute pancreatitis.? 2. Results of this exam have been verbally communicated with provider. Lab and Radiology Reports: Laboratory Results WBC 5.91 10^3/uL (4.4-10.8) 09/30/21 06:20 RBC 4.28 10^6/uL (3.93-5.22) 09/30/21 06:20 Hgb 13.4 g/dL (11.2-15.7) 09/30/21 06:20 Hct 39.9 % (36.0-46.0) 09/30/21 06:20 MCV 93.2 fL (80-95) 09/30/21 06:20 MCH 31.3 pg (27.0-33.0) 09/30/21 06:20 MCHC 33.6 % (32.0-36.0) 09/30/21 06:20 RDW 13.0 % (11.7-14.6) 09/30/21 06:20 Plt Count 243 10^3/uL (130-400) 09/30/21 06:20 MPV 11.0 fL (8.0-11.0) 09/30/21 06:20 Immature Gran % 0.4 09/28/21 11:35 Neutrophils % 74.7 09/28/21 11:35 Lymphocytes % 19.6 09/28/21 11:35 Monocytes % 4.9 09/28/21 11:35 Eosinophils % 0.2 09/28/21 11:35 Basophils % 0.2 09/28/21 11:35 Nucleated RBC % 0 % 09/28/21 11:35 Absolute Neutrophils 7.15 10^3/uL (1.2-6.7) H 09/28/21 11:35 Absolute Lymphocytes 1.88 10^3/uL (1.2-3.4) 09/28/21 11:35 Absolute Monocytes 0.47 10^3/uL (0.1-0.8) 09/28/21 11:35 Absolute Eosinophils 0.02 10^3/uL (0.0-0.7) 09/28/21 11:35 Absolute Basophils 0.02 10^3/uL (0.0-0.2) 09/28/21 11:35 Sodium 140 mmol/L (136-145) 09/29/21 05:48 Potassium 3.8 mmol/L (3.5-5.1) 09/29/21 05:48 Chloride 106 mmol/L (98-107) 09/29/21 05:48 Carbon Dioxide 28.8 mmol/L (21.0-32.0) 09/29/21 05:48 Anion Gap 5.2 mmol/L (3-11) 09/29/21 05:48 BUN 5 mg/dL (7-18) L 09/29/21 05:48 Creatinine 0.6 mg/dL (0.55-1.02) 09/29/21 05:48 Estimated GFR/1.73 m2 >= 60.00 (mL/min/1.73m2) 09/29/21 05:48 Glucose 83 mg/dL (74-106) D 09/29/21 05:48 Calcium 8.4 mg/dL (8.5-10.1) L 09/29/21 05:48 Magnesium 2.0 mg/dL (1.8-2.4) 09/28/21 11:35 Total Bilirubin 0.5 mg/dL (0.2-1.0) 09/28/21 11:35 AST 25 U/L (15-37) 09/28/21 11:35 ALT 29 U/L (14-59) 09/28/21 11:35 Alkaline Phosphatase 186 U/L (46-116) H 09/28/21 11:35 Total Protein 8.0 g/dL (6.4-8.2) 09/28/21 11:35 Albumin 4.2 g/dL (3.4-5.0) 09/28/21 11:35 Lipase < 10 U/L (73-393) 09/28/21 11:35 Urine Color Yellow (Yellow) 09/28/21 11:24 Urine Clarity Clear (Clear) 09/28/21 11:24 Urine pH 7.0 (5-8) 09/28/21 11:24 Ur Specific [place] 1.015 (1.005-1.025) 09/28/21 11:24 Urine Protein Negative mg/dL (Negative) 09/28/21 11:24 Urine Ketones Negative mg/dL (Negative) 09/28/21 11:24 Urine Blood Negative (Negative) 09/28/21 11:24 Urine Nitrite Negative (Negative) 09/28/21 11:24 Urine Bilirubin Negative (Negative) 09/28/21 11:24 Urine Urobilinogen 0.2 EU/dL (Up TO 0.2) 09/28/21 11:24 Ur Leukocyte Esterase Negative (Negative) 09/28/21 11:24 Urine Glucose 500 mg/dL (Negative) H 09/28/21 11:24 COVID-19 Source Nasal/Nares 09/28/21 17:30 SARS-CoV-2 (PCR) Negative (Negative) 09/28/21 17:30 PFSH All Active Problems (Updated 10/03/21 @ 00:04 by TEDDY PHILLIPS) Hyperglycemia (Acute) Productive cough (Acute) Ambulatory dysfunction (Acute) Urinary incontinence (Acute) DVT prophylaxis (Acute) Smoker (Acute) Thrombocytopenia (Chronic) Alcoholic hepatitis (Acute) Tachycardia (Acute) Nausea & vomiting (Acute) Healthcare-associated pneumonia (Acute) Alcohol withdrawal (Acute) Altered mental state (Acute) Acute hyponatremia (Acute) Pancreatic pseudocyst (Chronic) Chronic pancreatitis (Chronic) DVT prophylaxis (Acute) Anxiety (Chronic) History of DVT (deep vein thrombosis) (Chronic) Alcohol abuse (Chronic) Acute pancreatitis (Acute) Medical History (Updated 10/03/21 @ 00:04 by TEDDY PHILLIPS) DVT (deep venous thrombosis) Pancreatitis Seizure disorder Surgical History H/O chest tube placement H/O esophagogastroduodenoscopy H/O LEEP Family History Other Adopted Social History Smoking/Tobacco Use Status: Current every day Tobacco Type: cigarettes Tobacco: How many years used: 21 Smoking risk assessment performed?: Yes Alcohol Intake: former Drug use: Occasionally Substance use type: marijuana Do you feel safe at home: Yes Do you feel safe in your relationship?: Yes Additional Social history: Patient is and has 2 children ages 13 and 14. Moved here from [place] approximately 2 years ago, now lives in [place]. She is a [id number] mother. Reports ongoing alcohol use. 30+-pack-year history of smoking.
--- NOTE | 2021-10-02 16:37 | CMDISCH_ITS ---
- If Service Date Differs Date of service: 10/02/21 Time of Service: 16:37 LACE Index Scoring Tool - Questions: Length of Stay (in days): 4 - 6 Acuity (Admit via E.D.?): Yes Comorbidities: Mild Liver/Renal Disease E.D. Visits: 1 - Answers: Total Score: 10 Risk of Readmission: High Risk Care Management Discharge Reason for Hospitalization: Pancreatitis Discharge Plan: Zahraa will discharge home when medically ready, per provider. She will follow up with community providers and discharge plan of care as directed. Zahraa will transport via private vehicle with family. Zahraa declines referral's for a Teaching Assistant or Tobacco Cessation specialist at this time. Patient/Family Education Needs: Review discharge instructions, discuss Ask Me Three.
== END 2021-10-02 16:42 | disposition home or self-care (01) | DRG 439 ==
LOC: ER 17:16 → MS 09-29 08:06
PROVIDERS: Student in an Organized Health Care Education/Training Program; Admitting Provider Family Medicine; Emergency Provider Student in an Organized Health Care Education/Training Program; PCP Family Medicine; Visit Provider Family Medicine
DX: K85.90 Acute pancreatitis without necrosis or infection, unspecified (principal); K86.3 Pseudocyst of pancreas; K86.1 Other chronic pancreatitis; F41.9 Anxiety disorder, unspecified; F17.210 Nicotine dependence, cigarettes, uncomplicated; F10.10 Alcohol abuse, uncomplicated; D69.6 Thrombocytopenia, unspecified; R32 Unspecified urinary incontinence; Z86.718 Personal history of other venous thrombosis and embolism; K59.00 Constipation, unspecified; E11.9 Type 2 diabetes mellitus without complications
CPT/HCPCS: 36415; 80048; 80053; 81025; 83690; 85027; 87635; 96361; 96374; 96375; 96376; 99285; 74177; 81003; 83735; 85025; 99223; 99232; 99233; 99238; J0131; J1170; J1644; J2405; J2765; J3490

== ENCOUNTER 2021-10-17 09:09 | Observation (INO) | payer MEDICAID, SELFPAY ==
[2021-10-17] VITALS (29 sets, daily range): BP systolic 121–154; BP diastolic 65–92; PULSE 61–101; RESP 8–28; TEMP 35.7–36.7; O2SAT 96–100
--- NOTE | 2021-10-17 09:00 | RT.EKG_ITS ---
APPROVED REPORT Exam: Resting ECG Reason for Exam: chest pain Patient Location: E HR:90 bpm ECG Measurements Heart Rate 90 AXIS TN 140 P 51 QRSd 81 QRS 71 QT 358 T 55 QTc 438 Conclusion Sinus rhythm...normal P axis, V-rate 60- 99. Sinus. Normal axis. No STEMI. I have reviewed and interpreted ECG and agree with software generated interpretation.
--- NOTE | 2021-10-17 09:15 | DI.CT_ITS ---
Exam(s) CT ABDOMEN PELVIS W EXAM: CT ABDOMEN PELVIS W CLINICAL HISTORY: abd pain/ HO pancreatitis. TECHNIQUE: Imaging Protocol: Axial computed tomography images with coronal and sagittal reformatted images were created and reviewed CONTRAST MATERIAL: Intravenous: Omnipaque 350 Contrast volume:100 ml Oral: no COMPARISON: CT CT ABDOMEN PELVIS W from 04/04/[address] ABDOMEN PELVIS W from 09/28/2021 FINDINGS: ABDOMEN: Lung Bases: Normal where visualized. Liver: Normal density. No measurable mass. Gallbladder and biliary tract: No radiodense calculus or dilation. Pancreas: Atrophic body and tail of the pancreas with multiple calcifications consistent with sequela of chronic pancreatitis. No change in area of soft tissue density above head of the pancreas. No d efinite acute inflammation. Spleen: Normal. Kidneys: Normal size, contour and axis. No radiodense stones or obstructive uropathy. No masses seen. Adrenal glands: No masses seen. Abdominal Aorta: Abdominal portion non-dilated. Mild atherosclerotic changes. Branch vessels patent . PELVIS: Bladder: No gross wall thickening. No calculi.No focal mass. Bowel: No obstruction or bowel wall thickening. Appendix normal. Peritoneal cavity: No ascites, collection or mesenteric inflammatory response. Bones: Within normal limits for age. Reproductive organs: IUD. Lymph nodes: Unremarkable. Impression: Findings of chronic pancreatitis. No definite acute inflammation. No change in enlarged portacaval lymph nodes compared with previous exam. RADIATION DOSE DELIVERED: 678.99mGy.cm Total DLP DATA REPOSITORY: All CT scans at this facility are submitted to the National Radiology Data Registry (NRDR) Dose Index Registry (DIR) with the [employer] (ACR). RADIATION OPTIMIZATION: All CT scans at this facility use at least one of these dose optimization te chniques: automated exposure control; mA and/or kV adjustment per patient size (includes targeted exa ms where dose is matched to clinical indication); or iterative reconstruction.
--- NOTE | 2021-10-17 09:29 | ED.GENADUL_ITS ---
Discharge Plan Disposition Patient Disposition: [facility] INPATIENT Condition: Fair Discharge Details Clinical Impression: Acute pancreatitis, COVID Admit Date/Time: 10/17/21 12:26 Admit Provider: Rajat Flores Attending Provider: Rajat Flores Primary Care Provider: Abiel Clark ED Provider: Gray Olivas Medical Decision Making Patient presenting to the emergency department for chief complaint of epic gastric/abdominal pain. She does state some red bloody streaks of vomit but denies any gross hemataemesis. Patient does state sensation of palpations but otherwise denies all other symptoms. She does state that she was admitted recently for pancreatitis and since discharge she has started drinking again and slowly increasing alcohol intake. She states she has not at the same level she was before but drinks approximately 6 beers daily with her last drink at 7 PM last night. Does state history of withdrawal seizures but denies any seizure- like activity. Physical exam shows an acutely ill female with epigastric and left upper quadrant tenderness, mild right CVA tenderness, otherwise unremarkable exam. Plan to check labs and CT imaging for concern of acute pancreatitis secondary to alcohol intake. Patient has no tremors and appears mildly anxious/withdrawn. We will continue to monitor for any signs of withdrawal type symptoms but will treat pain with opioid and then consider benzos as needed if any further withdrawal symptoms occur. Please see physician report for full EKG interpretation. Patient is in sinus rhythm, no acute signs of STEMI, rate of 90, otherwise nondiagnostic EKG. Review of labs show unremarkable CBC, CMP shows elevated alk phos, negative initial troponin, nondetectable lipase, no alcohol detected, urine does show trace amount of blood and 3-5 RBCs otherwise no signs of infection. Patient is COVID-positive. Discussed with patient and she states recent household infections last week but states no respiratory symptoms. Patient is fully vaccinated but has not received booster. Review of CT imaging and radiologist interpretation shows findings consistent with acute on chronic pancreatitis. We will plan on contacting hospitalist for consideration of admission given that patient has needed multiple doses of IV pain medication and nausea medication care. Spoke with hospitalist who is in agreement with plan of care and states he will place admission orders. Medical Records Medical records reviewed: Yes I reviewed the patient's medical records. Imaging Data Radiologic Study: Imaging: CT Scan Radiologist's impression: IMPRESSION: 1. Findings consistent with mild acute edematous pancreatitis, superimposed on changes of chronic pancreatitis. 2. Unchanged mild portacaval lymphadenopathy, nonspecific, possibly reactive. HPI General Mode of arrival: ambulatory . Date/Time Provider Initiated Documentation: 10/17/21 09:11 . Limitations to Documentation: no limitations . Information obtained by: patient, family, RN notes reviewed and old records reviewed . History of Present Illness 41 year old F presents to the emergency department with the chief complaint of Abdominal pain and vomiting, described as moderate and similar to prior episodes, with intensity rated at 8. Quality is described as aching and sharp, and is localized to the abdomen. Patient reports no radiation. Patient started experiencing this hour(s) (12) and it has been constant. improves with No relieving factors improve symptom(s), Other factors that worsen symptoms (Alcohol intake) . Patient notes loss of appetite and nausea/vomiting. Patient did receive the following treatments prior to arrival, none Related Data Home Medications Medication Instructions Recorded Confirmed Unknown [No Known Home Meds] 10/17/21 10/17/21 Allergies Allergy/AdvReac Type Severity Reaction Status Date / Time amoxicillin Allergy Unverified 10/17/21 09:17 codeine Allergy Unverified 10/17/21 09:17 General Stated Complaint: Abd Prob JAMEEL: 3 Review of Systems Constitutional Constitutional: Reports chills, Denies fever(s) and Reports poor appetite Cardiovascular Cardiovascular: Denies chest pain and Denies dyspnea Respiratory Respiratory: Denies cough and Denies dyspnea Gastrointestinal Gastrointestinal: Reports as per HPI, Reports abdominal pain, Denies melena, Denies change in bowel habits, Denies coffee ground emesis, Denies constipation, Denies diarrhea, Reports nausea, Reports vomiting and Reports hematemesis (Blood-streaked vomit) Genitourinary Genitourinary: Denies hematuria, Denies urinary incontinence, Denies urinary hesitancy and Denies urinary urgency Integumentary/Breasts Skin/Breast: Denies rash PFSH All Active Problems (Updated 10/17/21 @ 12:40 by Gray Olivas NP) COVID (Acute) Hyperglycemia (Acute) Productive cough (Acute) Ambulatory dysfunction (Acute) Urinary incontinence (Acute) DVT prophylaxis (Acute) Smoker (Acute) Thrombocytopenia (Chronic) Alcoholic hepatitis (Acute) Tachycardia (Acute) Nausea & vomiting (Acute) Healthcare-associated pneumonia (Acute) Alcohol withdrawal (Acute) Altered mental state (Acute) Acute hyponatremia (Acute) Pancreatic pseudocyst (Chronic) Chronic pancreatitis (Chronic) DVT prophylaxis (Acute) Anxiety (Chronic) History of DVT (deep vein thrombosis) (Chronic) Alcohol abuse (Chronic) Acute pancreatitis (Acute) Medical History (Updated 10/17/21 @ 12:40 by Gray Olivas NP) DVT (deep venous thrombosis) Pancreatitis Seizure disorder Surgical History H/O chest tube placement H/O esophagogastroduodenoscopy H/O LEEP Family History Other Adopted Social History Smoking/Tobacco Use Status: Current every day Tobacco Type: cigarettes Tobacco: How many years used: 21 Smoking risk assessment performed?: Yes Alcohol Intake: current Alcohol Intake frequency: 3 or more drinks per day [place]ol type: beer Drug use: Occasionally Substance use type: marijuana Details: patient states that she has 6 beers or more a day, last drink was 7pm last night Do you feel safe at home: Yes Do you feel safe in your relationship?: Yes Additional Social history: Patient is and has 2 children ages 13 and 14. Moved here from [place] approximately 2 years ago, now lives in [facility]. She is a [id number] mother. Reports ongoing alcohol use. 30+-pack-year history of smoking. Exam Const General: cooperative, anxious, ill appearing acutely and does not appear intoxicated Orientation: alert, awake and oriented x3 Resp Effort & Inspection: normal respiratory effort and able to speak in complete sentences Auscultation: clear to auscultation bilaterally Cardio Rate: regular rate Rhythm: regular rhythm Heart Sounds: S1 normal and S2 normal GI Palpation: soft, no hepatosplenomegaly, not firm, no guarding, no masses, no pulsatile masses, not rigid and tender in the epigastrum, in the LUQ and periumbilically; Negative for Taveras's sign negative Auscultation: normal bowel sounds Back/Spine/Pelvis Back: CVA tenderness (mild right) Neuro General: patient alert, patient awake, patient oriented x3, gait normal and moves all extremities Psych Speech and Movement: speech and movement normal Mood: anxious mood Affect: blunted Course Vital Signs Vital signs: Vital Signs Temperature 36.7 C 10/17/21 09:12 Pulse 94 H 10/17/21 09:12 Respiratory Rate 16 10/17/21 09:12 Blood Pressure 154/92 H 10/17/21 09:12 Pulse Oximetry 100 10/17/21 09:12 Temperature 36.7 C 10/17/21 09:12 Temperature Source Temporal Artery Scan 10/17/21 09:12 Pulse 94 H 10/17/21 09:12 Respiratory Rate 16 10/17/21 09:12 Respiratory Effort 10/17/21 09:15 Blood Pressure 154/92 H 10/17/21 09:12 Blood Pressure Position Sitting 10/17/21 09:12 Pulse Oximetry 100 10/17/21 09:12 Oxygen Delivery Method Room Air 10/17/21 09:12 Oxygen Flow Rate 0 10/17/21 09:12 Pain Level 8 10/17/21 09:12 PAWSS Have you Been Recently Intoxicated or Drunk Within the Last 30 days?: Yes Have you Ever Experienced Previous Episodes of Alcohol Withdrawal?: Yes Have you ever Experienced Withdrawal Seizures?: Yes Have you ever Experienced Delirium Tremens(DT)s?: Yes Have you ever undergone Alcohol Rehabilitation Treatment (i.e, inpt ot outpatient treatment programs)?: Yes Have you ever Experienced Blackouts?: Yes Have you ever Combined Alcohol with other Downers within the last 90 days?: No Have you ever Combined Alcohol with any other Substance of Abuse during the last 90 days?: No Positive Blood Alcohol level on Presentation? [PCS.BAL]: No Evidence of Increased Autonomic Activity (i.e. HR>120, tremor, sweating, agitation, nausea)?: No Result: 6
[2021-10-17] MEDS: Ondansetron 4 MG/2 ML VIAL IVP ×2 (09:44→11:21)
[2021-10-17] MEDS: HYDROmorphone 2 MG/ML VIAL 1 MG IVP ×2 (09:44→11:20)
[2021-10-17] MEDS: Normal Saline 1,000 ML 1000 ML IV (09:44)
[2021-10-17 09:55] LABS: Abs Immature Grans 0.04 10^3/uL (0.0-0.06); Absolute Basophil Count 0.01 10^3/uL (0.0-0.2); Absolute Eosinophil Count 0.01 10^3/uL (0.0-0.7); Absolute Lymphocyte Count 1.94 10^3/uL (1.2-3.4); Absolute Monocyte Count 0.39 10^3/uL (0.1-0.8); Absolute Neutrophil Count 6.12 10^3/uL (1.2-6.7); Basophils % 0.1; Eosinophils % 0.1; HCT 41.6 % (36.0-46.0); HGB 14.5 g/dL (11.2-15.7); Immature Grans % 0.5; Lymphocytes % 22.8; MCHC 34.9 % (32.0-36.0); MCV 92 fL (80-95); MPV 9.9 fL (8.0-11.0); Monocytes % 4.6; Neutrophils % 71.9; Platelet Count 283 10^3/uL (130-400); RBC 4.53 10^6/uL (3.93-5.22); RDW-SD 44.1 fL; WBC 8.51 10^3/uL (4.4-10.8)
[2021-10-17 10:04] LABS: Source Nasal/Nares
[2021-10-17 10:12] LABS: ALT 25 U/L (14-59); AST 24 U/L (15-37); Albumin 3.8 g/dL (3.4-5.0); Alkaline Phosphatase 179 U/L (46-116); Anion Gap 9.8 mmol/L (3-11); BUN 6 mg/dL (7-18); Bilirubin, Total 0.4 mg/dL (0.2-1.0); CO2 24.2 mmol/L (21.0-32.0); CREATININE 0.6 mg/dL (0.55-1.02); Calcium 8.9 mg/dL (8.5-10.1); Chloride 102 mmol/L (98-107); Glucose 137 mg/dL (74-106); Magnesium 2.4 mg/dL (1.8-2.4); Sodium 136 mmol/L (136-145); Total Protein 7.6 g/dL (6.4-8.2); Troponin I < 50 ng/L (<or=60)
[2021-10-17 10:13] LABS: Lipase < 10 U/L (73-393)
[2021-10-17 10:16] LABS: ETHANOL BLOOD < 3.0 mg/dL (<10)
[2021-10-17 10:34] LABS: Bilirubin Negative (Negative); Blood Trace-intact (Negative); Clarity Sl Cloudy (Clear); Glucose Negative (Negative); Ketones Negative (Negative); Leukocyte Esterase Negative (Negative); Nitrite Negative (Negative); Specific Gravity 1.025 (1.005-1.025); Urobilinogen 0.2 EU/dL (Up TO 0.2)
[2021-10-17 10:39] LABS: Bacteria Rare HPF (Negative); Crystals Negative HPF (Negative); Epithelial Cells Moderate HPF (Negative); WBC 0-2 HPF (0-5)
[2021-10-17 10:40] LABS: C & S Indicated? No; Casts Negative LPF (Negative); Mucus Moderate (Negative)
[2021-10-17 10:44] LABS: COVID-19 PCR POSITIVE (Negative)
[2021-10-17] MEDS: Omnipaque 350 MG/ML 100 ML BTL IJ (11:11)
[2021-10-17] MEDS: Normal Saline Flush 10 ML SYR IVP ×3 (11:12→22:34)
[2021-10-17] MEDS: Ondansetron 4 MG/2 ML VIAL (11:21)
--- NOTE | 2021-10-17 11:45 | DI.VRAD_ITS ---
PROCEDURE INFORMATION: Exam: CT Abdomen And Pelvis With Contrast Exam date and time: 10/17/2021 11:07 AM Age: 41 years old Clinical indication: Other: Abd pain/ ho pancreatitis TECHNIQUE: Imaging protocol: Computed tomography of the abdomen and pelvis with contrast. Contrast material: OMNIPAQUE 350; Contrast volume: 100 ml; Contrast route: INTRAVENOUS (IV); COMPARISON: CT ABDOMEN PELVIS W 09/28/2021 12:05 PM FINDINGS: Lungs: Visualized lung bases are clear. No pleural effusions. Liver: Mild periportal edema, most likely secondary to aggressive intravenous hydration/volume status. Otherwise unremarkable. Gallbladder and bile ducts: Unremarkable. No calcified gallstones. No intrahepatic or extrahepatic biliary ductal dilation. Pancreas: The pancreas is moderately atrophic with numerous coarse parenchymal calcifications, findings consistent with the sequela of chronic pancreatitis. There is mild inflammatory fat stranding about the superior aspect of the pancreatic head, which suggest superimposed acute pancreatitis. Similar findings were present on the 09/28/2021 CT. There is no peripancreatic fluid collection. Spleen: Unremarkable. The spleen is normal in size. Adrenal glands: Unremarkable. Kidneys and ureters: Unremarkable. No hydronephrosis or hydroureter. There is normal and symmetric renal enhancement. Stomach and bowel: The stomach is nondilated. Small and large bowel are normal in caliber. Multiple loops of both small and large bowel are decompressed and therefore not optimally assessed. Appendix: A normal nondilated appendix is identified. Intraperitoneal space: Unremarkable. No ascites, fluid collection, or pneumoperitoneum. Retroperitoneal space: Unremarkable. No retroperitoneal collection or mass. Vasculature: Mild atherosclerotic mural calcification in the aortoiliac system. Normal caliber abdominal aorta. Portal and splenic veins remain patent. Lymph nodes: Mildly enlarged portacaval lymph node measuring 1.2 cm in short axis, not significantly changed. This is nonspecific, possibly reactive. No newly enlarged lymph nodes. Urinary bladder: Unremarkable. Reproductive: No suspicious pelvic masses. There is an intrauterine device in place. Bones/joints: Minimal degenerative changes. No suspicious osseous lesions. Soft tissues: Unremarkable. Other findings: None. IMPRESSION: 1. Findings consistent with mild acute edematous pancreatitis, superimposed on changes of chronic pancreatitis. 2. Unchanged mild portacaval lymphadenopathy, nonspecific, possibly reactive. Dictated and Authenticated by: Nicolette White MD. Ordering:MELISSA Castellano MD
--- NOTE | 2021-10-17 12:26 | HPE_ITS ---
Date of service: 10/17/21 Time of Service: 12:26 Assessment and Plan Assessment and plan (1) Chronic pancreatitis: Status: Chronic Assessment and plan: normal lipase in setting of acute on chronic pancreatitis. IV hydration antiemetics, pain management, advance diet as tolerated. (2) COVID: Status: Acute Assessment and plan: incidental finding asymptomatic. positive last week will maintain precautions. (3) Alcohol abuse: Status: Chronic Assessment and plan: no symptoms of withdrawal will order thiamine. consider recovery analyst, rehabilitation. will consult case management for her options and resources. (4) Discharge planning issues: Status: Acute Assessment and plan: will discharge to home with no services once medically stable discussed with DR Flores. History of Present Illness History of Present Illness Chief Complaint: abdominal pain Narrative: Patient presented to the emergency department for chief complaint of epic gastric/abdominal pain.? She was admitted recently for pancreatitis and since discharge she has started drinking again and slowly increasing alcohol intake.? She states she has not at the same level she was before but drinks approximately 6 beers daily.? Does state history of withdrawal seizures but denies any seizures. Her work up in the ED consistent with acute on chronic pancreatitis. she received IV antiemetics, pain medication and IV fluids and will be admitted to hospitalist services. Review of Systems All systems reviewed & are unremarkable except as noted in HPI and below Constitutional Constitutional: Denies fever(s) and Reports poor appetite Cardiovascular Cardiovascular: Denies chest pain, Denies lightheadedness and Denies dyspnea Respiratory Respiratory: Denies dyspnea Gastrointestinal Gastrointestinal: Reports abdominal pain, Reports nausea, Reports vomiting and Reports other (blood streaks in vomit reported) Musculoskeletal Musculoskeletal: Denies back pain Integumentary/Breasts Skin/Breast: Denies lesions and Denies rash [facility] All Active Problems (Updated 10/18/21 @ 14:59 by Marivel Granado NP) Discharge planning issues (Acute) COVID (Acute) Hyperglycemia (Acute) Productive cough (Acute) Ambulatory dysfunction (Acute) Urinary incontinence (Acute) DVT prophylaxis (Acute) Smoker (Acute) Thrombocytopenia (Chronic) Alcoholic hepatitis (Acute) Tachycardia (Acute) Nausea & vomiting (Acute) Healthcare-associated pneumonia (Acute) Alcohol withdrawal (Acute) Altered mental state (Acute) Acute hyponatremia (Acute) Pancreatic pseudocyst (Chronic) Chronic pancreatitis (Chronic) DVT prophylaxis (Acute) Anxiety (Chronic) History of DVT (deep vein thrombosis) (Chronic) Alcohol abuse (Chronic) Acute pancreatitis (Acute) Medical History (Updated 10/18/21 @ 14:59 by Marivel Granado NP) DVT (deep venous thrombosis) Pancreatitis Seizure disorder Surgical History H/O chest tube placement H/O esophagogastroduodenoscopy H/O LEEP Family History Other Adopted Social History Smoking/Tobacco Use Status: Current every day Tobacco Type: cigarettes Tobacco: How many years used: 21 Smoking risk assessment performed?: Yes Alcohol Intake: current Alcohol Intake frequency: 3 or more drinks per day Alcohol type: beer Drug use: Occasionally Substance use type: marijuana Details: patient states that she has 6 beers or more a day, last drink was 7pm last night Do you feel safe at home: Yes Do you feel safe in your relationship?: Yes Additional Social history: Patient is and has 2 children ages 13 and 14. Moved here from [place] approximately 2 years ago, now lives in [place]. She is a [id number] mother. Reports ongoing alcohol use. 30+-pack-year history of smoking. Meds Allergies and Home Medications Allergies Allergy/AdvReac Type Severity Reaction Status Date / Time amoxicillin Allergy Unverified 10/17/21 09:17 codeine Allergy Unverified 10/17/21 09:17 Home Medications Medication Instructions Recorded Confirmed Type Unknown [No Known Home Meds] 10/17/21 10/17/21 History Exam Const General: cooperative, healthy appearing and no acute distress Nutritional Appearance: thin Orientation: alert, awake and oriented x3 HENMT Head: normal to inspection, normocephalic and atraumatic Mouth: oral mucosae normal Chest Chest: normal inspection of the chest Resp Effort & Inspection: normal respiratory effort Auscultation: clear to auscultation bilaterally GI Palpation: soft and tender in the epigastrum and in the RUQ Skin General skin exam: no rashes or lesions noted Neuro General: patient alert, patient awake and patient oriented x3 Cognition: normal cognition Results Labs Result diagrams: 10/18/21 06:40 10/18/21 06:40 Labs: Laboratory Results - last 24 hr 10/17/21 10/17/21 10/17/21 09:35 09:35 09:35 WBC 8.51 RBC 4.53 Hgb 14.5 Hct 41.6 MCV 92 MCH 32.0 MCHC 34.9 RDW 13.0 Plt Count 283 MPV 9.9 Immature Gran % 0.5 Neutrophils % 71.9 Lymphocytes % 22.8 Monocytes % 4.6 Eosinophils % 0.1 Basophils % 0.1 Nucleated RBC % 0.0 Absolute Neutrophils 6.12 Absolute Lymphocytes 1.94 Absolute Monocytes 0.39 Absolute Eosinophils 0.01 Absolute Basophils 0.01 Sodium 136 Potassium 4.0 Chloride 102 Carbon Dioxide 24.2 Anion Gap 9.8 BUN 6 L Creatinine 0.6 Estimated GFR/1.73 m2 >= 60.00 Glucose 137 H Calcium 8.9 Magnesium 2.4 Total Bilirubin 0.4 AST 24 ALT 25 Alkaline Phosphatase 179 H Troponin I < 50 Total Protein 7.6 Albumin 3.8 Lipase < 10 Urine Color Urine Clarity Urine pH Ur Specific [place] Urine Protein Urine Ketones Urine Blood Urine Nitrite Urine Bilirubin Urine Urobilinogen Ur Leukocyte Esterase Urine RBC Urine WBC Ur Epithelial Cells Urine Crystals Urine Bacteria Urine Casts Urine Mucus Ur Culture Indicated? Urine Glucose Ethyl Alcohol < 3.0 COVID-19 Source SARS-CoV-2 (PCR) 10/17/21 10/17/21 09:56 10:20 WBC RBC Hgb Hct MCV MCH MCHC RDW Plt Count MPV Immature Gran % Neutrophils % Lymphocytes % Monocytes % Eosinophils % Basophils % Nucleated RBC % Absolute Neutrophils Absolute Lymphocytes Absolute Monocytes Absolute Eosinophils Absolute Basophils Sodium Potassium Chloride Carbon Dioxide Anion Gap BUN Creatinine Estimated GFR/1.73 m2 Glucose Calcium Magnesium Total Bilirubin AST ALT Alkaline Phosphatase Troponin I Total Protein Albumin Lipase Urine Color Yellow Urine Clarity Sl Cloudy Urine pH 7.0 Ur Specific [place] 1.025 Urine Protein Negative Urine Ketones Negative Urine Blood Trace-intact H Urine Nitrite Negative Urine Bilirubin Negative Urine Urobilinogen 0.2 Ur Leukocyte Esterase Negative Urine RBC 3-5 H Urine WBC 0-2 Ur Epithelial Cells Moderate Urine Crystals Negative Urine Bacteria Rare Urine Casts Negative Urine Mucus Moderate Ur Culture Indicated? No Urine Glucose Negative Ethyl Alcohol COVID-19 Source Nasal/Nares SARS-CoV-2 (PCR) POSITIVE A* Last Vital Signs Temp 36.7 C 10/17/21 09:12 Pulse 67 10/17/21 11:31 Resp 11 L 10/17/21 11:40 BP 141/69 H 10/17/21 11:31 Pulse Ox 98 10/17/21 10:40 PAWSS Have you Been Recently Intoxicated or Drunk Within the Last 30 days?: Yes Have you Ever Experienced Previous Episodes of Alcohol Withdrawal?: Yes Have you ever Experienced Withdrawal Seizures?: Yes Have you ever Experienced Delirium Tremens(DT)s?: Yes Have you ever undergone Alcohol Rehabilitation Treatment (i.e, inpt ot outpatient treatment programs)?: Yes Have you ever Experienced Blackouts?: Yes Have you ever Combined Alcohol with other Downers within the last 90 days?: No Have you ever Combined Alcohol with any other Substance of Abuse during the last 90 days?: No Positive Blood Alcohol level on Presentation? [PCS.BAL]: No Evidence of Increased Autonomic Activity (i.e. HR>120, tremor, sweating, agitation, nausea)?: No Result: 6
[2021-10-17] MEDS: Prochlorperazine 10 MG/2 ML VIAL IVP ×3 (12:56→21:07)
[2021-10-17] MEDS: Ketorolac 15 MG/ML VIAL IVP ×2 (12:56→17:49)
[2021-10-17 14:41] LABS: Troponin I < 50 ng/L (<or=60)
[2021-10-17] MEDS: Normal Saline 1,000 ML 125 ML IV (21:08)
[2021-10-17] MEDS: ACETAMINOPHEN 1,000 MG/100 ML BTL 400 MG IVPB (21:17)
[2021-10-18] MEDS: Normal Saline 1,000 ML 125 ML IV ×2 (03:30→11:30)
[2021-10-18 06:51] LABS: Abs Immature Grans 0.01 10^3/uL (0.0-0.06); Absolute Basophil Count 0.01 10^3/uL (0.0-0.2); Absolute Eosinophil Count 0.02 10^3/uL (0.0-0.7); Absolute Lymphocyte Count 2.07 10^3/uL (1.2-3.4); Absolute Monocyte Count 0.35 10^3/uL (0.1-0.8); Absolute Neutrophil Count 3.19 10^3/uL (1.2-6.7); Basophils % 0.2; Eosinophils % 0.4; HGB 13.8 g/dL (11.2-15.7); Immature Grans % 0.2; Lymphocytes % 36.6; MCH 31.7 pg (27.0-33.0); MCHC 34.5 % (32.0-36.0); MCV 92 fL (80-95); MPV 10.1 fL (8.0-11.0); Monocytes % 6.2; Neutrophils % 56.4; Platelet Count 212 10^3/uL (130-400); RBC 4.36 10^6/uL (3.93-5.22); RDW-SD 43.7 fL; WBC 5.65 10^3/uL (4.4-10.8)
[2021-10-18 07:18] LABS: ALT 21 U/L (14-59); AST 20 U/L (15-37); Albumin 3.3 g/dL (3.4-5.0); Alkaline Phosphatase 167 U/L (46-116); BUN 3 mg/dL (7-18); Bilirubin, Total 0.8 mg/dL (0.2-1.0); CREATININE 0.5 mg/dL (0.55-1.02); Calcium 8.3 mg/dL (8.5-10.1); Chloride 105 mmol/L (98-107); Glucose 114 mg/dL (74-106); Sodium 139 mmol/L (136-145); Total Protein 6.5 g/dL (6.4-8.2)
[2021-10-18] MEDS: Thiamine 100 MG TAB PO (08:34)
[2021-10-18] MEDS: Ketorolac 15 MG/ML VIAL IVP (08:34)
[2021-10-18] MEDS: Prochlorperazine 10 MG/2 ML VIAL IVP (08:34)
[2021-10-18 11:27] VITALS: BP 126/78; PULSE 92; RESP 14; TEMP 35.7; O2SAT 62
--- NOTE | 2021-10-18 13:41 | PDOC.CMDIS ---
- If Service Date Differs Date of service: 10/18/21 Time of Service: 13:41 LACE Index Scoring Tool - Questions: Length of Stay (in days): 1 Acuity (Admit via E.D.?): Yes Comorbidities: Mild Liver/Renal Disease E.D. Visits: 2 - Answers: Total Score: 8 Risk of Readmission: Low Risk Care Management Discharge Reason for Hospitalization: Abdominal Pain Discharge Plan: Zahraa will return home with outpatient follow up, including her PCP. She will transport via private vehicle with her . Patient/Family Education Needs: Review discharge instructions, discuss Ask Me Three.
--- NOTE | 2021-10-18 16:07 | W.PM.DS.N ---
Date of service: 10/18/21 Time of Service: 16:07 DS: Diagnosis Discharge Diagnosis (1) Chronic pancreatitis: Status: Chronic (2) COVID: Status: Acute (3) Alcohol abuse: Status: Chronic Discharge Plan Disposition Patient Disposition: HOME Condition: Stable Discharge Details Reason For Visit: Abdominal pain Admit Date/Time: 10/17/21 12:26 Admit Provider: Rajat Flores Attending Provider: Rajat Flores Primary Care Provider: Abiel Clark Hospital Course Hospital Course: This is a 41 year old female with history of alcohol abuse who presented to the emergency department for chief complaint of epic gastric/abdominal pain.? She was admitted recently for pancreatitis and since discharge she has started drinking again and slowly increasing alcohol intake.? She states she has not at the same level she was before but drinks approximately 6 beers daily.? Does state history of withdrawal seizures but denies any seizures.? Her work up in the ED consistent with acute on chronic pancreatitis.? she received IV antiemetics, pain medication and IV fluids and was admitted to hospitalist services.?Overnight she did not require IV narcotic pain medication with her pain controlled with IV apap and toradol. She was tolerating clear liquids and advanced to regular diet. she initially was c/o increased pain but later stated that was not the case and that she wished to be discharged to home. There was no sign of alcohol withdrawal. Discharge discussed with Dr Villanueva Home Meds and New Rx's Prescriptions: No Action No Known Home Meds 0RF Discharge Instructions Instructions: Pancreatitis (DC) Additional Instructions: do not drink alcohol Stand Alone Forms: Nursing Discharge Form Referrals: Abiel Clark [Primary Care Provider] - 11/01/21 2:40 pm Activity:: Activity as Tolerated Equipment/Supplies:: No Equipment Needed Diet:: As Tolerated Discharge Orders Discharge Orders: Discharge Order (Routine); Ordered 10/18/21 Ordered By: Marivel Granado Discharge Data Discharge Date/Time-TO BE ENTERED AT DEPARTURE: 10/18/21 16:54 DS: Summary Time Spent with Patient providing and/or coordinating discharge services: Less than 30 minutes Status at Discharge Functional status at discharge: independent ambulation Overall status at discharge: patient is back to baseline Mental Status: mental status grossly normal Speech and Movement: speech and movement normal Mood: congruent mood Affect: normal affect Exam Const General: cooperative, healthy appearing and no acute distress Nutritional Appearance: thin Orientation: alert, awake and oriented x3 HENMT Head: normal to inspection, normocephalic and atraumatic Mouth: oral mucosae normal Chest Chest: normal inspection of the chest Resp Effort & Inspection: normal respiratory effort Auscultation: clear to auscultation bilaterally GI Palpation: soft and tender in the epigastrum and in the RUQ Skin General skin exam: no rashes or lesions noted Neuro General: patient alert, patient awake and patient oriented x3 Cognition: normal cognition Psych Mental Status: mental status grossly normal Speech and Movement: speech and movement normal Mood: congruent mood Affect: normal affect DS: Data Vitals/I&O Vitals and I&O: Vital Signs Temperature 35.7 C L 10/18/21 11:27 Temperature Source Tympanic 10/17/21 22:34 Pulse 92 H 10/18/21 11:27 Pulse Rhythm Regular 10/18/21 08:36 Pulse 77 10/17/21 12:30 Respiratory Rate 14 10/18/21 11:27 Respiratory Effort 10/18/21 08:36 Respiratory Depth Normal 10/18/21 08:36 Respiratory Pattern Normal 10/18/21 08:36 Blood Pressure 126/78 10/18/21 11:27 Blood Pressure Mean 97 10/17/21 12:16 Blood Pressure Position Sitting 10/17/21 09:12 Pulse Oximetry 62 L 10/18/21 11:27 Oxygen Delivery Method Room Air 10/18/21 11:27 Oxygen Flow Rate 0 10/18/21 11:27 Pain Level 2 10/18/21 11:27 Intake & Output 10/17/21 10/18/21 10/18/21 23:59 11:59 23:59 Intake Total 270 / 1270 2045.833 / 2045.833 Balance 270 / 1270 2045.833 / 2045.833 Weight 56.699 kg Intake: IV 20 / 1020 1795.833 / 1795.833 Oral 250 / 250 250 / 250 Other: Urine Color Yellow Yellow Urine Appearance Clear Clear Comment Unmeasured urine output. Unmeasured urine output. Voiding Methods Toilet Toilet Data Completed and Pending Labs on day of discharge: Labs from last 24 hours 10/18/21 10/18/21 06:40 06:40 WBC 5.65 RBC 4.36 Hgb 13.8 Hct 40.0 MCV 92 MCH 31.7 MCHC 34.5 RDW 13.0 Plt Count 212 MPV 10.1 Immature Gran % 0.2 Neutrophils % 56.4 Lymphocytes % 36.6 Monocytes % 6.2 Eosinophils % 0.4 Basophils % 0.2 Nucleated RBC % 0.0 Absolute Neutrophils 3.19 Absolute Lymphocytes 2.07 Absolute Monocytes 0.35 Absolute Eosinophils 0.02 Absolute Basophils 0.01 Sodium 139 Potassium 4.0 Chloride 105 Carbon Dioxide 25.0 Anion Gap 9.0 BUN 3 L Creatinine 0.5 L Estimated GFR/1.73 m2 >= 60.00 Glucose 114 H Calcium 8.3 L Total Bilirubin 0.8 AST 20 ALT 21 Alkaline Phosphatase 167 H Total Protein 6.5 Albumin 3.3 L PFSH All Active Problems (Updated 10/18/21 @ 14:59 by Marivel Granado NP) Discharge planning issues (Acute) COVID (Acute) Hyperglycemia (Acute) Productive cough (Acute) Ambulatory dysfunction (Acute) Urinary incontinence (Acute) DVT prophylaxis (Acute) Smoker (Acute) Thrombocytopenia (Chronic) Alcoholic hepatitis (Acute) Tachycardia (Acute) Nausea & vomiting (Acute) Healthcare-associated pneumonia (Acute) Alcohol withdrawal (Acute) Altered mental state (Acute) Acute hyponatremia (Acute) Pancreatic pseudocyst (Chronic) Chronic pancreatitis (Chronic) DVT prophylaxis (Acute) Anxiety (Chronic) History of DVT (deep vein thrombosis) (Chronic) Alcohol abuse (Chronic) Acute pancreatitis (Acute) Medical History (Updated 10/18/21 @ 14:59 by Marivel Granado NP) DVT (deep venous thrombosis) Pancreatitis Seizure disorder Surgical History H/O chest tube placement H/O esophagogastroduodenoscopy H/O LEEP Family History Other Adopted Social History Smoking/Tobacco Use Status: Current every day Tobacco Type: cigarettes Tobacco: How many years used: 21 Smoking risk assessment performed?: Yes Alcohol Intake: current Alcohol Intake frequency: 3 or more drinks per day Alcohol type: beer Drug use: Occasionally Substance use type: marijuana Details: patient states that she has 6 beers or more a day, last drink was 7pm last night Do you feel safe at home: Yes Do you feel safe in your relationship?: Yes Additional Social history: Patient is and has 2 children ages 13 and 14. Moved here from [place] approximately 2 years ago, now lives in [place]. 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 Reports ongoing alcohol use. 30+-pack-year history of smoking.
== END 2021-10-18 16:54 | disposition home or self-care (01) ==
LOC: ER 12:37 → MS 13:46
PROVIDERS: Nurse Practitioner Acute Care; Admitting Provider Family Medicine; Emergency Provider Nurse Practitioner Family; PCP Family Medicine; Visit Provider Family Medicine
DX: K86.1 Other chronic pancreatitis (principal); F10.10 Alcohol abuse, uncomplicated; U07.1 COVID-19; R59.0 Localized enlarged lymph nodes; F17.210 Nicotine dependence, cigarettes, uncomplicated; R73.9 Hyperglycemia, unspecified; R05.1 Acute cough; R26.2 Difficulty in walking, not elsewhere classified; D69.6 Thrombocytopenia, unspecified; K70.10 Alcoholic hepatitis without ascites; F41.9 Anxiety disorder, unspecified; Z86.718 Personal history of other venous thrombosis and embolism
CPT/HCPCS: 36415; 80053; 81025; 83690; 87635; 93005; 96361; 96374; 96375; 96376; 99285; 74177; 80320; 81003; 81015; 83735; 84484; 85025; 93010; 99217; 99219; G0378; J0131; J0780; J1885; J2405; J3490

== ENCOUNTER 2021-11-18 03:58 | Inpatient (IN) | payer MEDICAID, SELFPAY ==
[2021-11-18] VITALS (91 sets, daily range): BP systolic 114–156; BP diastolic 55–93; PULSE 80–142; RESP 9–28; TEMP 36.6–37.3; O2SAT 88–99
--- NOTE | 2021-11-18 04:10 | ED.GENADUL_ITS ---
Discharge Plan Disposition Patient Disposition: [facility] INPATIENT Condition: Improving Discharge Details Chief Complaint: Seizure Clinical Impression: Delirium tremens, Thrombocytopenia, Alcohol withdrawal, Hepatitis Primary Care Provider: Abiel Clark ED Provider: Jaime Goldberg Home Meds and New Rx's Prescriptions: No Action No Known Home Meds Medical Decision Making This is a this is a 41-year-old female with a past medical history of pancreatic pseudocyst, anxiety, notable alcohol abuse drinking a minimum of a 12 pack/day, who presents today via EMS for concern of withdrawal from alcohol. Patient states that she has not had any alcohol for the last 1 to 2 days. She states that the only thing she has drunk today were a couple sweet teas. This e vening EMS was called when the patient was noted to be shaking and having seizure-like activity. EMS reports that she would go from convulsions while being completely aware, and then transitioning to being slightly out of it for a few moments and then coming back to normal. Patient was given 2 mg of IM Versed, and brought to the ER for further evaluation. EMS reports that refused to buy the patient any additional alcohol. Patient has no other complaints at this time. Patient has no other complaints at this time. Physical exam demonstrates a notably anxious patient, sweaty, notably agitated, who is actively tremoring in all extremities. In spite of this patient is able to communicate well, has a GCS of 15, and demonstrate evidence of out right seizure. CIWA score is notably elevated at 40. We will start with 4 mg of Ativan and 6 mg/kg of phenobarb. Will aggressively rehydrate, give banana bag, plan for admission, monitor closely and reassess 5:22 AM Patient CIWA score has notably improved but is still very elevated, laboratory work-up demonstrates no white count or anemia. pH is stable. Electrolytes are reasonable. Transaminases are higher and the patient has ever had. AST is 824, ALT is 272, ammonia is normal. Troponin negative, lipase normal. Urinalysis unremarkable. Alcohol level is 265, and with her alcohol being that high in the notable withdrawals that the patient was already in, I am concerned and feel that she would benefit from admission. With her epigastric tenderness, and the evidence of notable hepatitis we will get a CT scan to evaluate for soraida hemorrhage or other significant abnormality. In accordance with the policy for IV contrast rationing determined by [facility] radiology staff we will perform a non- IV contrast CT scan. 6:35 AM Patient notably stabilizing, CIWA has again continued to improve. CT scan shows no evidence of acute surgical process. I do continue to feel that the patient would benefit from admission. Discussed the case with the hospitalist Dr. Huynh, he agrees with the assessment and plan. I have extensively reviewed the treatment plan and discharge instructions with the patient. I have addressed all patient concerns at this time. The patient was made aware of what symptoms to monitor for that would warrant a return to the emergency department. Discussed the plan with the patient, they demonstrate verbal understanding and agreement with our assessment and plan at this time. The documentation in this chart was dictated using [employer] dictation software. Please excuse any dictation errors. FINDINGS: Liver: Severe fatty infiltration of the liver No mass. Gallbladder and bile ducts: No calcified stones. No ductal dilation. Pancreas: No ductal dilation. Chronic calcific pancreatitis Spleen: Normal. No splenomegaly. Adrenal glands: Normal. No mass. Kidneys and ureters: Faint nephrocalcinosis No hydronephrosis. Stomach and bowel: No obstruction. Question mild mucosal thickening. Appendix: No evidence of appendicitis. Intraperitoneal space: Unremarkable. No free air. No significant fluid collection. Vasculature: Unremarkable. No abdominal aortic aneurysm. Lymph nodes: Unremarkable. No enlarged lymph nodes. Urinary bladder: Minimal air in the bladder presumably related to recent catheterization Reproductive: Intrauterine device in the uterus Bones/joints: Unremarkable. No acute fracture. Soft tissues: Unremarkable IMPRESSION: Chronic calcific pancreatitis . No evidence for acute pancreatitis Faint nephrocalcinosis without hydroureteronephrosis Nonspecific nonobstructed bowel gas pattern Thank you for allowing us to participate in the care of your patient. Dictated and Authenticated by: Bob Mejia MD 11/18/2021 6:26 AM Eastern Time ([place] & [place] HPI General Date/Time Provider Initiated Documentation: 11/18/21 04:02 . HPI Narrative: This is a this is a 41-year-old female with a past medical history of pancreatic pseudocyst, anxiety, notable alcohol abuse drinking a minimum of a 12 pack/day, who presents today via EMS for concern of withdrawal from alcohol. Patient states that she has not had any alcohol for the last 1 to 2 days. She states that the only thing she has drunk today were a couple sweet teas. This evening EMS was called when the patient was noted to be shaking and having seizure-like activity. EMS reports that she would go from convulsions while being completely aware, and then transitioning to being slightly out of it for a few moments and then coming back to normal. Patient was given 2 mg of IM Versed, and brought to the ER for further evaluation. EMS reports that refused to buy the patient any additional alcohol. Patient has no other complaints at this time. Related Data Home Medications Medication Instructions Recorded Confirmed Unknown [No Known Home Meds] 10/17/21 11/18/21 Allergies Allergy/AdvReac Type Severity Reaction Status Date / Time amoxicillin Allergy Unverified 11/18/21 04:06 codeine Allergy Unverified 11/18/21 04:06 General Stated Complaint: Seizure JAMEEL: 3 Review of Systems All systems reviewed & are unremarkable except as noted in HPI and below PFSH All Active Problems (Updated 11/18/21 @ 06:37 by Jaime Goldberg DO) Delirium tremens (Acute) Thrombocytopenia (Chronic) Alcohol withdrawal (Acute) Hepatitis (Acute) COVID (Acute) Hyperglycemia (Acute) Productive cough (Acute) Ambulatory dysfunction (Acute) Urinary incontinence (Acute) DVT prophylaxis (Acute) Smoker (Acute) Thrombocytopenia (Chronic) Alcoholic hepatitis (Acute) Tachycardia (Acute) Nausea & vomiting (Acute) Healthcare-associated pneumonia (Acute) Alcohol withdrawal (Acute) Altered mental state (Acute) Acute hyponatremia (Acute) Pancreatic pseudocyst (Chronic) Chronic pancreatitis (Chronic) DVT prophylaxis (Acute) Anxiety (Chronic) History of DVT (deep vein thrombosis) (Chronic) Alcohol abuse (Chronic) Acute pancreatitis (Acute) Medical History (Updated 11/18/21 @ 06:37 by Jaime Goldberg DO) DVT (deep venous thrombosis) Pancreatitis Seizure disorder Surgical History H/O chest tube placement H/O esophagogastroduodenoscopy H/O LEEP Family History Other Adopted Social History Smoking/Tobacco Use Status: Current every day Tobacco Type: cigarettes Tobacco: How many years used: 21 Smoking risk assessment performed?: Yes Alcohol Intake: current Alcohol Intake frequency: 3 or more drinks per day Alcohol type: beer Drug use: Rarely Substance use type: marijuana Details: patient states that she has 6 beers or more a day, last drink was 7pm last night Do you feel safe at home: Yes Do you feel safe in your relationship?: Yes Additional Social history: Patient is and has 2 children ages 13 and 14. Moved here from [place] approximately 2 years ago, now lives in [place]. She is a [id number]-wo-armf mother. Reports ongoing alcohol use. 30+-pack-year history of smoking. Exam Narrative Exam Narrative: 1.Const: Well-nourished, Well-developed, appearing stated age 2.Eyes: PERRL, no conjunctival injection, and symmetrical lids. 3.ENT: Atraumatic external nose and ears. Moist MM. Neck: Symmetric, trachea midline, No thyromegaly. 4.CVS: +S1/S2, No murmurs or gallops. Peripheral pulses 2+ and equal in all extremities. Brisk capillary refill in all extremities. 5.RESP: Unlabored respiratory effort. Clear to auscultation bilaterally. No wheezes rales or rhonchi 6.GI: Soft, Nontender/Nondistended, No hepatosplenomegaly. No guarding or rebound. 7.MSK: Normocephalic/Atraumatic, Extremities w/o deformity or ttp No cyanosis or clubbing, Normal movement of all extremities. Patient demonstrates a constant tremor-like motion of all of her extremities however she remains aware of what is going on and is able to talk and communicate during this. 8.Skin: Warm, sweaty. No rashes or lesions. 9.Neuro: manager maintenance II-XII grossly intact. Sensation grossly intact, no focal neurologic deficits. GCS of 15 10.Psych: (AAO) x2t notably agitated Course Vital Signs Vital signs: Vital Signs Temperature 37.2 C 11/18/21 04:01 Pulse 129 H 11/18/21 04:01 Respiratory Rate 18 11/18/21 04:01 Blood Pressure 156/93 H 11/18/21 04:01 Pulse Oximetry 98 11/18/21 04:01 Temperature 37.2 C 11/18/21 04:01 Temperature Source Skin 11/18/21 04:01 Pulse 129 H 11/18/21 04:01 Respiratory Rate 18 11/18/21 04:01 Respiratory Effort 11/18/21 04:04 Respiratory Depth Normal 11/18/21 04:04 Respiratory Pattern Normal 11/18/21 04:04 Blood Pressure 156/93 H 11/18/21 04:01 Blood Pressure Position Supine 11/18/21 04:01 Pulse Oximetry 98 11/18/21 04:01 Oxygen Delivery Method Room Air 11/18/21 04:01 Oxygen Flow Rate 0 11/18/21 04:01 Pain Level 5 11/18/21 04:01 Critical Care Time Critical Care Time Critical Care Time: Yes Total Critical Care Time: 45 Attestation: Upon my evaluation, this patient had a high probability of imminent or life- threatening deterioration, which required my direct attention, intervention, and personal management. I have personally provided 45 minutes of critical care time exclusive of time spent on separately billable procedures. Time includes review of laboratory data, radiology results, discussion with consultants, and monitoring for potential decompensation. Interventions were performed as documented. PAWSS Have you Been Recently Intoxicated or Drunk Within the Last 30 days?: Yes Have you Ever Experienced Previous Episodes of Alcohol Withdrawal?: Yes Have you ever Experienced Withdrawal Seizures?: Yes Have you ever Experienced Delirium Tremens(DT)s?: Yes Have you ever undergone Alcohol Rehabilitation Treatment (i.e, inpt ot outpatient treatment programs)?: Yes Have you ever Experienced Blackouts?: Yes Have you ever Combined Alcohol with other Downers within the last 90 days?: No Have you ever Combined Alcohol with any other Substance of Abuse during the last 90 days?: No Positive Blood Alcohol level on Presentation? [PCS.BAL]: Yes Evidence of Increased Autonomic Activity (i.e. HR>120, tremor, sweating, agitation, nausea)?: Yes Result: 8
--- NOTE | 2021-11-18 04:15 | RT.EKG_ITS ---
APPROVED REPORT Exam: Resting ECG Reason for Exam: chest pain Patient Location: E HR:98 bpm ECG Measurements Heart Rate 98 AXIS NM 154 P 43 QRSd 86 QRS 73 QT 351 T 46 QTc 449 Conclusion Sinus rhythm...normal P axis, V-rate 60- 99 Physician: no stemi
[2021-11-18] MEDS: MAGNESIUM SULFATE 8.12 MEQ, MULTIVITAMIN 10 ML, THIAMINE 100 MG, FOLIC ACID 1 MG in Nor... 168.867 MG IV (04:21)
[2021-11-18] MEDS: LORazepam 2 MG/ML VIAL 4 MG IVP (04:23)
[2021-11-18 04:26] LABS: BE (Venous) 5 mmol/L (-2-3); HCO3 (Venous) 29 mmol/L (23-28); O2 Sat (Venous) 56 %; TCO2 (Venous) 26 mmol/L (24-29); pCO2 (Venous) 46 mmHg (41-51); pH (Venous) 7.41 (7.31-7.41); pO2 (Venous) 31 mmHg
[2021-11-18 04:29] LABS: Abs Immature Grans 0.03 10^3/uL (0.0-0.06); Absolute Basophil Count 0.02 10^3/uL (0.0-0.2); Absolute Eosinophil Count 0.01 10^3/uL (0.0-0.7); Absolute Monocyte Count 0.18 10^3/uL (0.1-0.8); Absolute Neutrophil Count 3.66 10^3/uL (1.2-6.7); Basophils % 0.4; Eosinophils % 0.2; HCT 38.9 % (36.0-46.0); HGB 14.3 g/dL (11.2-15.7); Immature Grans % 0.6; Lymphocytes % 20.4; MCH 33.6 pg (27.0-33.0); MCHC 36.8 % (32.0-36.0); MCV 92 fL (80-95); MPV 10.1 fL (8.0-11.0); Monocytes % 3.7; Neutrophils % 74.7; RBC 4.25 10^6/uL (3.93-5.22); RDW 15.8 % (11.7-14.6); RDW-SD 51.9 fL
[2021-11-18 04:40] LABS: Source Nasal/Nares
[2021-11-18] MEDS: Lactated Ringers 1,000 ML 1000 ML IV (04:44)
[2021-11-18 04:49] LABS: ALT 272 U/L (14-59); Alkaline Phosphatase 338 U/L (46-116); Anion Gap 14.7 mmol/L (3-11); BUN 5 mg/dL (7-18); CO2 27.3 mmol/L (21.0-32.0); CREATININE 0.9 mg/dL (0.55-1.02); Calcium 8.2 mg/dL (8.5-10.1); Chloride 91 mmol/L (98-107); ETHANOL BLOOD 265.4 mg/dL (<10); Glucose 170 mg/dL (74-106); Lipase 11 U/L (73-393); Sodium 133 mmol/L (136-145); Total Protein 7.4 g/dL (6.4-8.2)
[2021-11-18 04:57] LABS: Ammonia < 10 umol/L (11-32)
[2021-11-18 05:02] LABS: Acetaminophen < 2 ug/mL (10-30); Salicylate < 2.8 mg/dL (<2.8)
[2021-11-18 05:07] LABS: Magnesium 1.8 mg/dL (1.8-2.4)
[2021-11-18 05:14] LABS: AST 824 U/L (15-37)
--- NOTE | 2021-11-18 05:15 | DI.CT_ITS ---
Exam(s) CT ABDOMEN PELVIS WO EXAM: CT ABDOMEN PELVIS WO CLINICAL HISTORY: epigastric pain, etoh, hx of severe pancreatits. TECHNIQUE: Imaging Protocol: Axial computed tomography images with coronal and sagittal reformatted images were created and reviewed CONTRAST MATERIAL: Intravenous: none Oral: None COMPARISON: CT CT ABDOMEN PELVIS W from 10/17/2021 FINDINGS: VISUALIZED LUNG BASES: No nodules nor pleural effusions evident. ABDOMEN: There is no ascites. LIVER: The liver is profoundly hypodense with pseudo enhancement evident on this noninfused study, si gnifying severe steatosis. There are, however, no discrete focal hepatic lesions identified. No dil atation of intrahepatic ducts. GALLBLADDER/BILIARY: Gallbladder is filled with hyperdense bile but no radiopaque calculi. No gallbl adder wall edema. No pericholecystic fluid CBD is not dilated. PANCREAS: Pancreas is again noted to be atrophic and diffusely calcified, consistent with chronic neely creatitis. No obvious acute pancreatitis. Pancreatic duct does not appear dilated. SPLEEN: Spleen is not enlarged. No obvious intrasplenic lesions. ADRENALS: There are no significant adrenal masses. KIDNEYS:No cysts evident. No solid renal masses. No calculi nor hydronephrosis. . ABDOMINAL AORTA: Abdominal aorta is not enlarged. LYMPH NODES: There is no retroperitoneal nor paraaortic adenopathy. ABDOMINAL WALL: No evidence of significant anterior abdominal wall nor inguinal hernia. GI: There is no evidence of bowel obstruction, free air, nor abscess. PELVIS: LYMPH NODES: There is no intrapelvic nor inguinal adenopathy. GI: No evidence of appendicitis.No evidence of sigmoid diverticulitis. URINARY BLADDER: No calculi nor obvious masses evident. However, there is a small amount of air in t he urinary bladder noted. Correlation with recent instrumentation noted REPRODUCTIVE: IUD is again noted in the endometrial cavity of the uterus. No abnormal adnexal findin gs. No free fluid in the pelvis OSSEOUS: No significant osseous lesions. IMPRESSION: 1. Compared to the prior CT scan of 1 month ago (10/17/2021) there is been progression of hepatic duy atosis. Liver is now profoundly hypodense implying severe fatty parenchymal change the steatosis. C orrelation with appropriate hepatic blood work is recommended. There are no discrete focal hepatic m asses evident. There is no ascites and there is no splenomegaly. 2. Chronic calcific pancreatitis is again noted. No obvious acute pancreatitis evident. 3. Gallbladder is filled with uniform density hyperdense bile, however, there are no calcified gallst ones nor gallbladder wall edema nor pericholecystic fluid and the CBD is not dilated. 4. IUD again noted in the endometrial cavity of the uterus, unchanged. No abnormal adnexal findings and no free fluid in the cul-de-sac. RADIATION DOSE DELIVERED: 532.45mGy.cm Total DLP DATA REPOSITORY: All CT scans at this facility are submitted to the National Radiology Data Registry (NRDR) Dose Index Registry (DIR) with the [employer] (A[employer]). RADIATION OPTIMIZATION: All CT scans at this facility use at least one of these dose optimization te chniques: automated exposure control; mA and/or kV adjustment per patient size (includes targeted exa ms where dose is matched to clinical indication); or iterative reconstruction.
[2021-11-18 05:16] LABS: Platelet Count 98 10^3/uL (130-400); Troponin I < 50 ng/L (<or=60)
[2021-11-18 05:17] LABS: Diff Comment PLT Morph Reviewed; RBC Morphology Normal
[2021-11-18 05:19] LABS: *AMPHETAMINES SCREEN URINE Negative (Negative); *BARBITURATES SCREEN URINE Negative (Negative); *BENZODIAZEPINES SCREEN URINE Positive (Negative); Cannabinoids THC Negative (Negative); Cocaine Screen,Urine Negative (Negative); METHADONE URINE SCREEN Negative (Negative); OPIATES URINE SCREEN Negative (Negative); Tricyclic Antidepressants Negative (Negative)
[2021-11-18 05:34] LABS: COVID-19 PCR Negative (Negative)
[2021-11-18] MEDS: Normal Saline 1,000 ML 1000 ML IV (06:03)
--- NOTE | 2021-11-18 06:11 | NUR.NOTE ---
Nursing Note: Pt very restless. Unable to keep monitoring applied.One time dose of Ativan given with mild to moderate effect. Pt did complain of lower chest pain on arrival. EKG obtained. Pt very tender to touch to upper ABD. Dr. Goldberg aware
--- NOTE | 2021-11-18 06:26 | DI.VRAD_ITS ---
PROCEDURE INFORMATION: Exam: CT Abdomen And Pelvis Without Contrast Exam date and time: 11/18/2021 5:45 AM Age: 41 years old Clinical indication: Abdominal pain; Epigastric; Additional info: Epigastric pain, HX pancreatitis TECHNIQUE: Imaging protocol: Computed tomography of the abdomen and pelvis without contrast. Radiation optimization: All CT scans at this facility use at least one of these dose optimization techniques: automated exposure control; mA and/or kV adjustment per patient size (includes targeted exams where dose is matched to clinical indication); or iterative reconstruction. COMPARISON: CT ABDOMEN PELVIS W 10/17/2021 11:07 AM FINDINGS: Liver: Severe fatty infiltration of the liver No mass. Gallbladder and bile ducts: No calcified stones. No ductal dilation. Pancreas: No ductal dilation. Chronic calcific pancreatitis Spleen: Normal. No splenomegaly. Adrenal glands: Normal. No mass. Kidneys and ureters: Faint nephrocalcinosis No hydronephrosis. Stomach and bowel: No obstruction. Question mild mucosal thickening. Appendix: No evidence of appendicitis. Intraperitoneal space: Unremarkable. No free air. No significant fluid collection. Vasculature: Unremarkable. No abdominal aortic aneurysm. Lymph nodes: Unremarkable. No enlarged lymph nodes. Urinary bladder: Minimal air in the bladder presumably related to recent catheterization Reproductive: Intrauterine device in the uterus Bones/joints: Unremarkable. No acute fracture. Soft tissues: Unremarkable. IMPRESSION: Chronic calcific pancreatitis . 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 Ordering:VILLA Sandoval MD
--- NOTE | 2021-11-18 06:53 | W.PM.HP.N ---
Date of service: 11/18/21 Time of Service: 05:53 Assessment and Plan Assessment and plan (1) Thrombocytopenia: Status: Chronic Assessment and plan: Most likely chronic alcohol abuse related. Monitor. TEDS for DVT propylaxis given risk of chemical prophylaxis and bleeding; low platelets and concern for risk of varices being present. Monitor (2) Alcohol withdrawal: Status: Acute Assessment and plan: Given Ativan x two 4mg IV doses in ED as well as 330mg IV phenobarbitol. Will cont withdrawal protocal with ativan. CIWA scoring. Finish current banana bag. PO MVI, thiamine and folic acid starting tomorrow. (3) Alcoholic hepatitis: Status: Acute Assessment and plan: Viral hepatitis panel sent, but LFT elevations likely alcohol related. Monitor, (4) Smoker: Status: Acute Assessment and plan: Nicotine replacement. (5) Discharge planning issues: Status: Acute Assessment and plan: Given chronic alcohol abuse and h/o admissions for intoxication and withdrawal, unclear at this time if she will desire inpatient substance abuse treatment. Care management will be involved. History of Present Illness History of Present Illness Chief Complaint: Alcohol withdrawal. Narrative: This is a 41 yo female, known to our service from past admission, with a h/o Etoh abuse disorder, alcohol withdrawal, withdrawal seizure, acute andchronic pancreatitis, hemorrhagic hepatitis, alcoholic hepatitis, COVID, tobacco abuse disorder, anxiety disorder. She presented to the ED via EMS. EMS notified when pt was observed to possibly be having seizure activity. EMS not she would have generalized shaking but being aware during the episodes. EMS stated she would be slightly out of it just for brief moments. She was administered 2mg IM Versed by EMS. In the ED she was noted to be sweating and agitated. Tremors noted in all extremities. She was able to communicate and had a GCS of 15. Initial CIWA score was 40. 4 mg IV ativan initially administered. Subsequently she received 330mg phenobarbitol. IV hydration and a banana bag initiated. She later received 4 mg IV ativan. She was subsequently sedated with stable VS. Review of Systems All systems reviewed & are unremarkable except as noted in HPI and below Constitutional Constitutional: Reports as per HPI PFSH All Active Problems (Updated 11/18/21 @ 09:27 by Rajat Flores MD) Discharge planning issues (Acute) Delirium tremens (Acute) Thrombocytopenia (Chronic) Alcohol withdrawal (Acute) Hepatitis (Acute) COVID (Acute) Hyperglycemia (Acute) Productive cough (Acute) Ambulatory dysfunction (Acute) Urinary incontinence (Acute) DVT prophylaxis (Acute) Smoker (Acute) Thrombocytopenia (Chronic) Alcoholic hepatitis (Acute) Tachycardia (Acute) Nausea & vomiting (Acute) Healthcare-associated pneumonia (Acute) Alcohol withdrawal (Acute) Altered mental state (Acute) Acute hyponatremia (Acute) Pancreatic pseudocyst (Chronic) Chronic pancreatitis (Chronic) DVT prophylaxis (Acute) Anxiety (Chronic) History of DVT (deep vein thrombosis) (Chronic) Alcohol abuse (Chronic) Acute pancreatitis (Acute) Medical History (Updated 11/18/21 @ 09:27 by Rajat Flores MD) DVT (deep venous thrombosis) Pancreatitis Seizure disorder Surgical History H/O chest tube placement H/O esophagogastroduodenoscopy H/O LEEP Family History Other Adopted Social History Smoking/Tobacco Use Status: Current every day Tobacco Type: cigarettes Tobacco: How many years used: 21 Smoking risk assessment performed?: Yes Alcohol Intake: current Alcohol Intake frequency: 3 or more drinks per day Alcohol type: beer Drug use: Rarely Substance use type: marijuana Details: patient states that she has 6 beers or more a day, last drink was 7pm last night In current or past relationships, have you been: made to feel afraid Do you feel safe at home: No Do you feel safe in your relationship?: No Additional Social history: Patient is and has 2 children ages 13 and 14. Moved here from [place] approximately 2 years ago, now lives in [place]. She is a [id number] mother. Reports ongoing alcohol use. 30+-pack-year history of smoking. Pt feels unsafe living with her . Pt States that she feels like he slips her Stuff in her drinks. Meds Allergies and Home Medications Allergies Allergy/AdvReac Type Severity Reaction Status Date / Time amoxicillin Allergy Unverified 11/18/21 04:06 codeine Allergy Unverified 11/18/21 04:06 Home Medications Medication Instructions Recorded Confirmed Type Unknown [No Known Home Meds] 05/01/22 06/02/22 History Exam Const General: no acute distress (sleeping) Nutritional Appearance: thin Orientation: not awake HENMT Head: normal to inspection and atraumatic Resp Effort & Inspection: normal respiratory effort Auscultation: clear to auscultation bilaterally Cardio Rate: regular rate Rhythm: regular rhythm Heart Sounds: S1 normal and S2 normal GI Palpation: soft Auscultation: normal bowel sounds Skin General skin exam: no rashes or lesions noted Extrem General: no pedal edema and no cyanosis Results Labs Result diagrams: 11/18/21 04:20 11/18/21 04:20 Labs: Laboratory Results - last 24 hr 11/18/21 11/18/21 11/18/21 04:08 04:20 04:20 WBC RBC Hgb Hct MCV MCH MCHC RDW Plt Count MPV Immature Gran % Neutrophils % Lymphocytes % Monocytes % Eosinophils % Basophils % Nucleated RBC % Absolute Neutrophils Absolute Lymphocytes Absolute Monocytes Absolute Eosinophils Absolute Basophils RBC Morphology VBG pH VBG pCO2 VBG pO2 VBG HCO3 VBG Total CO2 VBG O2 Saturation VBG Base Excess Sodium Cancelled 133 L Potassium Cancelled 5.0 Chloride Cancelled 91 L Carbon Dioxide Cancelled 27.3 Anion Gap Cancelled 14.7 H BUN Cancelled 5 L Creatinine Cancelled 0.9 Estimated GFR/1.73 m2 Cancelled >= 60.00 Glucose Cancelled 170 H Calcium Cancelled 8.2 L Magnesium Total Bilirubin Cancelled 1.0 AST Cancelled 824 H ALT Cancelled 272 H Alkaline Phosphatase Cancelled 338 H Ammonia Troponin I Total Protein Cancelled 7.4 Albumin Cancelled 4.0 Lipase 11 Salicylates < 2.8 Urine Opiates Screen Urine Methadone Screen Acetaminophen < 2 Ur Barbiturates Screen Ur Tricyclics Screen Ur Amphetamines Screen U Benzodiazepines Scrn Urine Cocaine Screen Ur THC Screen Ethyl Alcohol 265.4 H COVID-19 Source SARS-CoV-2 (PCR) 11/18/21 11/18/21 11/18/21 04:20 04:20 04:20 WBC 4.90 RBC 4.25 Hgb 14.3 Hct 38.9 MCV 92 MCH 33.6 H MCHC 36.8 H RDW 15.8 H Plt Count 98 L MPV 10.1 Immature Gran % 0.6 Neutrophils % 74.7 Lymphocytes % 20.4 Monocytes % 3.7 Eosinophils % 0.2 Basophils % 0.4 Nucleated RBC % 0.0 Absolute Neutrophils 3.66 Absolute Lymphocytes 1.00 L Absolute Monocytes 0.18 Absolute Eosinophils 0.01 Absolute Basophils 0.02 RBC Morphology Normal VBG pH 7.41 VBG pCO2 46 VBG pO2 31 VBG HCO3 29 H VBG Total CO2 26 VBG O2 Saturation 56 VBG Base Excess 5 H Sodium Potassium Chloride Carbon Dioxide Anion Gap BUN Creatinine Estimated GFR/1.73 m2 Glucose Calcium Magnesium 1.8 Total Bilirubin AST ALT Alkaline Phosphatase Ammonia Troponin I Total Protein Albumin Lipase Salicylates Urine Opiates Screen Urine Methadone Screen Acetaminophen Ur Barbiturates Screen Ur Tricyclics Screen Ur Amphetamines Screen U Benzodiazepines Scrn Urine Cocaine Screen Ur THC Screen Ethyl Alcohol COVID-19 Source SARS-CoV-2 (PCR) 11/18/21 11/18/21 11/18/21 04:20 04:35 04:38 WBC RBC Hgb Hct MCV MCH MCHC RDW Plt Count MPV Immature Gran % Neutrophils % Lymphocytes % Monocytes % Eosinophils % Basophils % Nucleated RBC % Absolute Neutrophils Absolute Lymphocytes Absolute Monocytes Absolute Eosinophils Absolute Basophils RBC Morphology VBG pH VBG pCO2 VBG pO2 VBG HCO3 VBG Total CO2 VBG O2 Saturation VBG Base Excess Sodium Potassium Chloride Carbon Dioxide Anion Gap BUN Creatinine Estimated GFR/1.73 m2 Glucose Calcium Magnesium Total Bilirubin AST ALT Alkaline Phosphatase Ammonia < 10 L Troponin I < 50 Total Protein Albumin Lipase Salicylates Urine Opiates Screen Urine Methadone Screen Acetaminophen Ur Barbiturates Screen Ur Tricyclics Screen Ur Amphetamines Screen U Benzodiazepines Scrn Urine Cocaine Screen Ur THC Screen Ethyl Alcohol COVID-19 Source Nasal/Nares SARS-CoV-2 (PCR) Negative 11/18/21 04:57 WBC RBC Hgb Hct MCV MCH MCHC RDW Plt Count MPV Immature Gran % Neutrophils % Lymphocytes % Monocytes % Eosinophils % Basophils % Nucleated RBC % Absolute Neutrophils Absolute Lymphocytes Absolute Monocytes Absolute Eosinophils Absolute Basophils RBC Morphology VBG pH VBG pCO2 VBG pO2 VBG HCO3 VBG Total CO2 VBG O2 Saturation VBG Base Excess Sodium Potassium Chloride Carbon Dioxide Anion Gap BUN Creatinine Estimated GFR/1.73 m2 Glucose Calcium Magnesium Total Bilirubin AST ALT Alkaline Phosphatase Ammonia Troponin I Total Protein Albumin Lipase Salicylates Urine Opiates Screen Negative Urine Methadone Screen Negative Acetaminophen Ur Barbiturates Screen Negative Ur Tricyclics Screen Negative Ur Amphetamines Screen Negative U Benzodiazepines Scrn Positive A Urine Cocaine Screen Negative Ur THC Screen Negative Ethyl Alcohol COVID-19 Source SARS-CoV-2 (PCR) Last Vital Signs Temp 36.6 C 11/18/21 06:14 Pulse 91 H 11/18/21 06:10 Resp 16 11/18/21 06:10 BP 125/64 11/18/21 06:10 Pulse Ox 98 11/18/21 06:10 PAWSS Have you Been Recently Intoxicated or Drunk Within the Last 30 days?: No Have you Ever Experienced Previous Episodes of Alcohol Withdrawal?: Yes Have you ever Experienced Withdrawal Seizures?: Yes Have you ever Experienced Delirium Tremens(DT)s?: Yes Have you ever undergone Alcohol Rehabilitation Treatment (i.e, inpt ot outpatient treatment programs)?: Unable to Obtain Have you ever Experienced Blackouts?: Yes Have you ever Combined Alcohol with other Downers within the last 90 days?: Yes Have you ever Combined Alcohol with any other Substance of Abuse during the last 90 days?: Yes Positive Blood Alcohol level on Presentation? [PCS.BAL]: Yes Evidence of Increased Autonomic Activity (i.e. HR>120, tremor, sweating, agitation, nausea)?: Yes Result: 8
[2021-11-18] MEDS: LORazepam 2 MG/ML VIAL IVP ×6 (07:46→22:01)
[2021-11-18 08:08] LABS: Troponin I < 50 ng/L (<or=60)
--- NOTE | 2021-11-18 08:31 | PDOC.CMIN ---
- If Service Date Differs Date of service: 11/18/21 Time of Service: 08:31 Care Management Initial Assess REASON FOR HOSPITALIZATION:: Alcohol Withdrawal PAST MEDICAL HISTORY/PAST SURGICAL HISTORY:: All Active Problems . Delirium tremens (Acute). Thrombocytopenia (Chronic). Alcohol withdrawal (Acute). Hepatitis (Acute). COVID (Acute). Hyperglycemia (Acute). Productive cough (Acute). Ambulatory dysfunction (Acute). Urinary incontinence (Acute). DVT prophylaxis (Acute). Smoker (Acute). Thrombocytopenia (Chronic). Alcoholic hepatitis (Acute). Tachycardia (Acute). Nausea & vomiting (Acute). Healthcare-associated pneumonia (Acute). Alcohol withdrawal (Acute). Altered mental state (Acute). Acute hyponatremia (Acute). Pancreatic pseudocyst (Chronic). Chronic pancreatitis (Chronic). DVT prophylaxis (Acute). Anxiety (Chronic). History of DVT (deep vein thrombosis) (Chronic). Alcohol abuse (Chronic). Acute pancreatitis (Acute). Medical History . DVT (deep venous thrombosis). Pancreatitis. Seizure disorder. Surgical History . H/O chest tube placement. H/O esophagogastroduodenoscopy. H/O LEEP PREVIOUS FUNCTIONAL STATUS/SOCIAL/FAMILY SUPPORTS:: Per chart review: Zahraa lives in [place] with her Harsh and her two children. Zahraa doesn't drive at this time, but is in the process of getting her license back. Her and daughter help with transportation. CURRENT FUNCTIONAL STATUS:: Zahraa is being closely monitored and treated for ETOH withdrawal in the ICU per CIWA protocol. She is unable to communicate at this time. ADVANCE DIRECTIVES:: None, will offer AD forms Has patient been provided with info about the portal/API?: Yes Did the patient sign up for the portal?: No CODE STATUS:: Full Code INSURANCE COVERAGE / FINANCIAL ISSUES:: Medicaid PRIMARY CARE PHYSICIAN:: Dr. Clark POTENTIAL DISCHARGE NEEDS:: Community Referral's vs. inpatient treatment PATIENT/FAMILY EDUCATION NEEDS:: Review discharge instructions, medications, limitations and plan to follow up with community providers. ask me three. TRANSPORTATION:: Via private vehicle with family. PLAN:: Zahraa is being closely monitored and treated for alcohol withdrawal per [facility] protocol. CM will offer pt a assistant men's soccer coach, community resources and discuss inpatient treatment options when pt is medically stable. Anticipate, pt will discharge home when medically ready per provider and follow up with community providers. Zahraa will transport via private vehicle with family.
[2021-11-18 08:48] LABS: Lab Add On Test DONE
[2021-11-18 09:09] LABS: Hemoglobin A1C 6.2 % (<5.7)
[2021-11-18] MEDS: Normal Saline Flush 10 ML SYR IVP ×2 (10:00→13:04)
[2021-11-18] MEDS: HYDROmorphone 2 MG/ML SYR 1 MG IVP (13:11)
[2021-11-18] MEDS: Lactated Ringers 1,000 ML 150 ML IV (17:07)
[2021-11-19] VITALS (41 sets, daily range): BP systolic 100–159; BP diastolic 52–92; PULSE 68–117; RESP 9–26; TEMP 37–37.6; O2SAT 92–98
--- NOTE | 2021-11-19 | DI.US_ITS ---
Exam(s) US ABDOMEN LIMITED EXAM: US ABDOMEN LIMITED CLINICAL HISTORY: RUQ abdominal pain TECHNIQUE: Ultrasound abdomen performed using standard protocol. COMPARISON: No exams were available for comparison FINDINGS: PANCREAS: Normal where visualized. LIVER: There is increased echogenicity of the liver. Hepatopedal flow in the Portal Vein. The liver measures in 12.7 cm length. GALLBLADDER: No evidence of cholelithiasis. No evidence of wall thickening. No pericholecystic fluid identified. BILIARY SYSTEM: Common bile duct measures 8.2 mm. No intrahepatic biliary ductal dilation. NUNEZ'S SIGN: Negative. RIGHT KIDNEY: Kidney is normal in size. No evidence of renal calculi. No evidence of hydronephrosis. No renal mass or cyst identified. ASCITES: None seen. IMPRESSION: 1. Fatty infiltration of the liver. 2. Common duct is 8.2 mm. This is mildly enlarged given the age of the patient. No cholelithiasis o r choledocholithiasis is identified. MRI/MRCP should be considered for further evaluation. DATA REPOSITORY:
[2021-11-19] MEDS: Lactated Ringers 1,000 ML 150 ML IV ×3 (00:09→13:35)
[2021-11-19] MEDS: Ondansetron 4 MG/2 ML VIAL IVP ×5 (00:34→22:21)
[2021-11-19] MEDS: MORPHine 2 MG/ML SYR IVP ×6 (00:35→22:12)
[2021-11-19] MEDS: LORazepam 2 MG/ML VIAL IVP ×3 (02:14→22:13)
[2021-11-19 06:15] LABS: Abs Immature Grans 0.02 10^3/uL (0.0-0.06); Absolute Basophil Count 0.01 10^3/uL (0.0-0.2); Absolute Eosinophil Count 0.04 10^3/uL (0.0-0.7); Absolute Lymphocyte Count 1.28 10^3/uL (1.2-3.4); Absolute Monocyte Count 0.16 10^3/uL (0.1-0.8); Absolute Neutrophil Count 1.54 10^3/uL (1.2-6.7); Basophils % 0.3; Eosinophils % 1.3; HCT 33.4 % (36.0-46.0); HGB 11.8 g/dL (11.2-15.7); Immature Grans % 0.7; MCH 33.1 pg (27.0-33.0); MCHC 35.3 % (32.0-36.0); MCV 94 fL (80-95); MPV 10.5 fL (8.0-11.0); Monocytes % 5.2; Neutrophils % 50.5; RBC 3.56 10^6/uL (3.93-5.22); RDW 15.9 % (11.7-14.6); RDW-SD 55.1 fL; WBC 3.05 10^3/uL (4.4-10.8)
[2021-11-19 06:28] LABS: PHOSPHORUS 2.2 mg/dL (2.6-4.7)
[2021-11-19 06:31] LABS: Platelet Count 63 10^3/uL (130-400)
[2021-11-19 06:46] LABS: ALT 204 U/L (14-59); AST 465 U/L (15-37); Albumin 3.1 g/dL (3.4-5.0); Alkaline Phosphatase 284 U/L (46-116); Anion Gap 8.4 mmol/L (3-11); BUN 2 mg/dL (7-18); Bilirubin, Total 1.3 mg/dL (0.2-1.0); CO2 26.6 mmol/L (21.0-32.0); CREATININE 0.6 mg/dL (0.55-1.02); Calcium 8.4 mg/dL (8.5-10.1); Chloride 96 mmol/L (98-107); Glucose 151 mg/dL (74-106); Potassium 4.1 mmol/L (3.5-5.1); Sodium 131 mmol/L (136-145); Total Protein 6.2 g/dL (6.4-8.2)
[2021-11-19] MEDS: LORazepam 1 MG TAB PO/SL ×3 (08:18→15:05)
[2021-11-19] MEDS: Thiamine 100 MG TAB PO (08:18)
[2021-11-19] MEDS: Folic Acid 1 MG TAB PO (08:18)
[2021-11-19] MEDS: Multivitamin TAB 1 TAB PO (08:18)
[2021-11-19 10:45] LABS: Hepatitis A Antibody IgM Negative (Negative); Hepatitis B Core Antibody Negative (Negative); Hepatitis B surface Ag Negative (Negative); Hepatitis C Ab w Rflx HCV PCR Negative (Negative)
--- NOTE | 2021-11-19 10:45 | PGE_ITS ---
Date of Service Date of service: 11/19/21 Time of Service: 09:45 Assessment and Plan Assessment and plan (1) Delirium tremens: Status: Acute Assessment and plan: cont. ativan protocol, MVI, thiamine, folic acid; encourage po intake but continue iv fluids until she is able to take adequate oral liquids (2) Alcohol withdrawal: Status: Acute Assessment and plan: as above (3) Epigastric pain: Status: Resolved Assessment and plan: probably alcoholic gastritis. CT of abdomen showed Severe fatty liver changes in the gallbladder filled with hyperdense bile but no radiopaque calculi. No gallbladder wall edema no pericholecystic fluid. Reportedly common bile duct was not dilated. Pancreas shows atrophy and diffuse calcifications consistent with chronic pancreatitis but no obvious acute pancreatic changes such as fat stranding or peripancreatic fluid. Pancreatic duct is not dilated. Patient was not on any H2 taniya or PPI. I will start her on some IV Protonix. I will also check ultrasound of her abdomen to be sure there is no gallstones or common bile duct stones (4) Smoker: Status: Acute (5) Thrombocytopenia: Status: Chronic Assessment and plan: Secondary to chronic alcoholism. Avoid enoxaparin or heparin. (6) DVT prophylaxis: Status: Acute Assessment and plan: Use SCD and DERRELL hose. No chemoprophylaxis Subjective Subjective Interval history since last seen: Laina is still being treated for acute alcohol withdrawal. Discussed her case with Dr. Lambert, pulmonary/[facility]. Review of the patient's use of Ativan showed she has had over 21 mg of IV Ativan since admission. Patient will be started on scheduled dose of Librium and tapered over the next 72 hours. As the patient is still been requiring IV Ativan she will remain in the intensive care unit.Her CIWA score this morning was 14 but after being medicated came down below 7. Complaint of right upper quadrant epigastric abdominal pain. Exam Narrative Exam Narrative: Patient is anxious jittery and tremorous. She is not diaphoretic not hallucinating. She is complaining of right upper quadrant abdominal pain. Lungs are clear to auscultation Heart is regular rate and rhythm Abdomen soft with some tenderness is out of proportion to exam. She does have active bowel sounds. Tenderness seems to be more focalized in the right upper quadrant. Extremities without peripheral cyanosis or edema Objective Last Vital Signs Temp 37.3 C 11/19/21 10:30 Pulse 88 11/19/21 10:30 Resp 15 11/19/21 10:30 BP 154/65 H 11/19/21 10:30 Pulse Ox 93 11/19/21 10:30 Laboratory Results - last 24 hr 11/19/21 11/19/21 11/19/21 05:25 05:25 05:25 WBC 3.05 L RBC 3.56 L Hgb 11.8 D Hct 33.4 L MCV 94 MCH 33.1 H MCHC 35.3 D RDW 15.9 H Plt Count 63 L MPV 10.5 Immature Gran % 0.7 Neutrophils % 50.5 Lymphocytes % 42.0 Monocytes % 5.2 Eosinophils % 1.3 Basophils % 0.3 Nucleated RBC % 0.0 Absolute Neutrophils 1.54 Absolute Lymphocytes 1.28 Absolute Monocytes 0.16 Absolute Eosinophils 0.04 Absolute Basophils 0.01 Sodium 131 L Potassium 4.1 Chloride 96 L Carbon Dioxide 26.6 Anion Gap 8.4 BUN 2 L Creatinine 0.6 Estimated GFR/1.73 m2 >= 60.00 Glucose 151 H Calcium 8.4 L Phosphorus 2.2 L Total Bilirubin 1.3 H AST 465 H ALT 204 H Alkaline Phosphatase 284 H Total Protein 6.2 L Albumin 3.1 L PAWSS Have you Been Recently Intoxicated or Drunk Within the Last 30 days?: No Have you Ever Experienced Previous Episodes of Alcohol Withdrawal?: Yes Have you ever Experienced Withdrawal Seizures?: Yes Have you ever Experienced Delirium Tremens(DT)s?: Yes Have you ever undergone Alcohol Rehabilitation Treatment (i.e, inpt ot outpatient treatment programs)?: Unable to Obtain Have you ever Experienced Blackouts?: Yes Have you ever Combined Alcohol with other Downers within the last 90 days?: Yes Have you ever Combined Alcohol with any other Substance of Abuse during the last 90 days?: Yes Positive Blood Alcohol level on Presentation? [PCS.BAL]: Yes Evidence of Increased Autonomic Activity (i.e. HR>120, tremor, sweating, agitation, nausea)?: Yes Result: 8
--- NOTE | 2021-11-19 11:25 | CMPROGNOTE_ITS ---
- If Service Date Differs Date of service: 11/19/21 Time of Service: 11:26 Care Management Progress Note S/O: Zahraa is withdrawing and being closely monitored and treated in the ICU for alcohol withdrawal per CIWA protocol, scoring 14-20. She is on IV ativan and starting on Librium. Zahraa continues to be lethargic. She is currently relaxed and sleeping. CM did not wake her. Per provider, abdominal US is ordered d/t increased abdominal pain. A: 41 year old female admitted to [facility] on 11/18/21 for Alcohol Withdrawal P: CM will offer pt a cross country/track and field coach, community resources and discuss inpatient treatment options when pt is medically stable. Anticipate, pt will discharge home when medically ready per provider and follow up with community providers. Zahraa will transport via private vehicle with family.
[2021-11-19] MEDS: chlordiazePOXIDE 25 MG CAP 50 MG PO ×3 (11:42→22:12)
--- NOTE | 2021-11-19 12:57 | NUR.NOTE ---
Ultrasound of abdomen is completed at bedside.Nursing Note:
--- NOTE | 2021-11-19 13:06 | NUR.NOTE ---
Patient is given 1mg of Ativan PO for CIWA score of 6.Nursing Note:
--- NOTE | 2021-11-19 13:16 | NUR.NOTE ---
Nursing Note: Nurse gives patient a cup of ice.
--- NOTE | 2021-11-19 15:06 | NUR.NOTE ---
1mg of Ativan is given for CIWA score of 7 via PO.Nursing Note:
[2021-11-19] MEDS: Nicotine 21 MG/24 HR PATCH TD (16:19)
[2021-11-19] MEDS: Normal Saline Flush 10 ML SYR IVP ×3 (16:56→22:13)
[2021-11-19] MEDS: Pantoprazole 40 MG VIAL IVP (21:00)
[2021-11-20] VITALS (44 sets, daily range): BP systolic 91–142; BP diastolic 55–119; PULSE 73–132; RESP 8–26; TEMP 36–37.4; O2SAT 70–100
[2021-11-20] MEDS: MORPHine 2 MG/ML SYR IVP ×4 (00:28→06:16)
[2021-11-20] MEDS: LORazepam 2 MG/ML VIAL IVP ×2 (02:30→06:16)
[2021-11-20 05:57] LABS: Abs Immature Grans 0.02 10^3/uL (0.0-0.06); Absolute Eosinophil Count 0.03 10^3/uL (0.0-0.7); Absolute Lymphocyte Count 1.22 10^3/uL (1.2-3.4); Absolute Monocyte Count 0.16 10^3/uL (0.1-0.8); Absolute Neutrophil Count 1.07 10^3/uL (1.2-6.7); Eosinophils % 1.2; HCT 39.2 % (36.0-46.0); Immature Grans % 0.8; Lymphocytes % 48.8; MCH 33.1 pg (27.0-33.0); MCHC 35.5 % (32.0-36.0); MCV 93 fL (80-95); MPV 10.7 fL (8.0-11.0); Monocytes % 6.4; Neutrophils % 42.8; RDW 15.9 % (11.7-14.6); RDW-SD 54.1 fL
[2021-11-20 06:04] LABS: ALT 243 U/L (14-59); AST 463 U/L (15-37); Albumin 3.5 g/dL (3.4-5.0); Alkaline Phosphatase 352 U/L (46-116); Anion Gap 6.6 mmol/L (3-11); BUN 0 mg/dL (7-18); Bilirubin, Total 1.2 mg/dL (0.2-1.0); CO2 30.4 mmol/L (21.0-32.0); CREATININE 0.6 mg/dL (0.55-1.02); Calcium 9.5 mg/dL (8.5-10.1); Chloride 95 mmol/L (98-107); Glucose 132 mg/dL (74-106); Potassium 3.5 mmol/L (3.5-5.1); Sodium 132 mmol/L (136-145); Total Protein 7.1 g/dL (6.4-8.2)
[2021-11-20 06:16] LABS: HGB 13.9 g/dL (11.2-15.7)
[2021-11-20 06:19] LABS: Platelet Count 66 10^3/uL (130-400)
--- NOTE | 2021-11-20 07:38 | NUR.NOTE ---
Patient spills coffee in bed. Linens are changed out. Patient is quite lethargic after overnight receiving 10mg of Morphine and 8mg of Ativan. RN will let patient wake up more and then plan to shower patient and walk her in the halls. Nursing Note:
[2021-11-20] MEDS: chlordiazePOXIDE 25 MG CAP 50 MG PO ×4 (07:50→20:46)
[2021-11-20] MEDS: Folic Acid 1 MG TAB PO (07:52)
[2021-11-20] MEDS: Thiamine 100 MG TAB PO (07:52)
[2021-11-20] MEDS: Polyethylene Glycol 3350 17 GM PACKET PO (07:52)
[2021-11-20] MEDS: Multivitamin TAB 1 TAB PO (07:52)
[2021-11-20] MEDS: Ondansetron 4 MG/2 ML VIAL IVP (08:17)
[2021-11-20] MEDS: Pantoprazole 40 MG VIAL IVP (08:18)
[2021-11-20] MEDS: Normal Saline Flush 10 ML SYR IVP (08:20)
--- NOTE | 2021-11-20 08:30 | NUR.NOTE ---
Patient given ondansetron for nausea.Nursing Note:
--- NOTE | 2021-11-20 08:32 | NUR.NOTE ---
Patient says she is hungry. RN places tray in front of patient while she is sitting up in bed. Patient begins to feed herself.Nursing Note:
--- NOTE | 2021-11-20 09:42 | PGE_ITS ---
Date of Service Date of service: 11/20/21 Time of Service: 08:42 Assessment and Plan Assessment and plan (1) Delirium tremens: Status: Acute Assessment and plan: Continue chlordiazepoxide 50 mg 4 times daily. We will taper this off over the next 48 hours. Discontinue IV lorazepam. May continue to supplement with p.o. lorazepam as needed continue multivitamin folic acid and thiamine. Patient is medically stable can be transferred out of the ICU to the medical/surgical floor (2) Alcohol withdrawal: Status: Acute Assessment and plan: as above (3) Epigastric pain: Status: Resolved Assessment and plan: probably alcoholic gastritis. CT of abdomen showed Severe fatty liver changes in the gallbladder filled with hyperdense bile but no radiopaque calculi. No gallbladder wall edema no pericholecystic fluid. Reportedly common bile duct was not dilated. Pancreas shows atrophy and diffuse calcifications consistent with chronic pancreatitis but no obvious acute pancreatic changes such as fat stranding or peripancreatic fluid. Pancreatic duct is not dilated. Patient was not on any H2 taniya or PPI. I will switch from IV Protonix to oral Protonix. Today her pain seems to be more focalized in the lower abdomen/pelvic area. In light of her history of her IUD I will ask HEALTHCARE PROF to evaluate her. She is not a candidate for NSAIDs given her alcoholic liver disease. She is not a candidate for tramadol for pain control given her history of seizures. Use Tylenol at a reduced daily limit. If need be we can add some oral narcotic analgesic although she does list codeine as an allergy. I do feel that her complaints of pain are out of proportion to her physical exam. (4) Smoker: Status: Acute (5) Thrombocytopenia: Status: Chronic Assessment and plan: Secondary to chronic alcoholism. Avoid enoxaparin or heparin. (6) DVT prophylaxis: Status: Acute Assessment and plan: Use SCD and DERRELL hose. No chemoprophylaxis Subjective Subjective Interval history since last seen: Patient complains of lower abdominal pain. She states that she has had an IUD in place for 10 years has not had a recent HEALTHCARE PROF follow-up. She is requesting to see a HEALTHCARE PROF while she is here in hospital. There is no history of vaginal discharge. No recent vaginal bleeding. With respect to her alcohol withdrawal she seems to have improved since being put on Librium. She is not requiring parenteral Ativan. CIWA score this morning is 4. She did score as high as 22 last night Her CIWA score was high last night secondary to severe anxiety moderate restlessness and fidgeting as well as with complaints of headache and muscle tremors. She is not experiencing any of this this morning Exam Narrative Exam Narrative: Laina is alert and oriented not exhibiting any tremors. She is able to sit up in bed and cooperate with her nurse. Her nurse took her for a walk this morning. Laina does complain of lower abdominal/pelvic pain. Abdominal exam however is relatively benign. She has normal bowel sounds and able to palpate her abdomen deeply although she complains of pain there is no involuntary guarding or rebound tenderness. Lungs some coarse breath sounds at the bases that clears with coughing and deep breathing. Heart is regular but tachycardic Neuro exam no focal deficits no tremors Objective Last Vital Signs Temp 36.9 C 11/20/21 08:33 Pulse 100 H 11/20/21 08:33 Resp 16 11/20/21 08:33 BP 128/98 H 11/20/21 08:33 Pulse Ox 98 11/20/21 08:33 Laboratory Results - last 24 hr 11/18/21 11/20/21 11/20/21 07:35 05:12 05:12 WBC 2.50 L RBC 4.20 Hgb 13.9 D Hct 39.2 MCV 93 MCH 33.1 H MCHC 35.5 RDW 15.9 H Plt Count 66 L MPV 10.7 Immature Gran % 0.8 Neutrophils % 42.8 Lymphocytes % 48.8 Monocytes % 6.4 Eosinophils % 1.2 Basophils % 0.0 Nucleated RBC % 0.0 Absolute Neutrophils 1.07 L Absolute Lymphocytes 1.22 Absolute Monocytes 0.16 Absolute Eosinophils 0.03 Absolute Basophils 0.00 Sodium 132 L Potassium 3.5 Chloride 95 L Carbon Dioxide 30.4 Anion Gap 6.6 BUN 0 L Creatinine 0.6 Estimated GFR/1.73 m2 >= 60.00 Glucose 132 H Calcium 9.5 Total Bilirubin 1.2 H AST 463 H ALT 243 H Alkaline Phosphatase 352 H Total Protein 7.1 Albumin 3.5 Hepatitis A IgM Ab Negative Hep Bs Antigen Negative Hep B Core Total Ab Negative Hepatitis C Antibody Negative PAWSS Have you Been Recently Intoxicated or Drunk Within the Last 30 days?: No Have you Ever Experienced Previous Episodes of Alcohol Withdrawal?: Yes Have you ever Experienced Withdrawal Seizures?: Yes Have you ever Experienced Delirium Tremens(DT)s?: Yes Have you ever undergone Alcohol Rehabilitation Treatment (i.e, inpt ot outpatient treatment programs)?: Unable to Obtain Have you ever Experienced Blackouts?: Yes Have you ever Combined Alcohol with other Downers within the last 90 days?: Yes Have you ever Combined Alcohol with any other Substance of Abuse during the last 90 days?: Yes Positive Blood Alcohol level on Presentation? [PCS.BAL]: Yes Evidence of Increased Autonomic Activity (i.e. HR>120, tremor, sweating, agitation, nausea)?: Yes Result: 8
--- NOTE | 2021-11-20 09:45 | NUR.NOTE ---
No family member has called or visited patient since admission to ICU. Patient is and has two teenaged children. Patient is concerned that her family has not visited her or called her.Nursing Note:
--- NOTE | 2021-11-20 09:55 | NUR.NOTE ---
MD will dc Morphine after abdominal examination, order OBGYN consult, and order phenergan. Government Affairs Fellow sees patient to discuss patient's selection for food.Nursing Note:
--- NOTE | 2021-11-20 10:28 | NUR.NOTE ---
Patient is given a cup of coca cola on ice.Nursing Note:
--- NOTE | 2021-11-20 11:15 | NUR.NOTE ---
Med/Surg and [employer] Engineer are aware of tranfer orders to Med/Surg. Patient sleeping soundly. Vital signs are stable.Nursing Note:
--- NOTE | 2021-11-20 11:51 | NUR.NOTE ---
Patient continues to sleep soundly.Nursing Note:
--- NOTE | 2021-11-20 12:29 | NUR.NOTE ---
Patient awakens from her sleep. Patient is set up with her lunch tray which includes chicken soup, yogurt, and judy crackers. Patient begins to feed herself some chicken soup.Nursing Note:
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
--- NOTE | 2021-11-20 13:44 | NUR.NOTE ---
Chlamydia and Gonorrhea cultures are delivered to lab by INDUSTRIAL WASTE INSPECTOR.Nursing Note:
[2021-11-21] VITALS (17 sets, daily range): BP systolic 100–123; BP diastolic 56–79; PULSE 67–109; RESP 13–24; TEMP 36.2–37; O2SAT 95–100
[2021-11-21] MEDS: Acetaminophen 325 MG TAB 650 MG PO ×2 (03:00→10:53)
[2021-11-21] MEDS: LORazepam 1 MG TAB PO/SL ×2 (03:00→23:17)
[2021-11-21 06:08] LABS: Abs Immature Grans 0.02 10^3/uL (0.0-0.06); Absolute Basophil Count 0.01 10^3/uL (0.0-0.2); Absolute Eosinophil Count 0.04 10^3/uL (0.0-0.7); Absolute Lymphocyte Count 1.41 10^3/uL (1.2-3.4); Absolute Monocyte Count 0.31 10^3/uL (0.1-0.8); Absolute Neutrophil Count 1.43 10^3/uL (1.2-6.7); Basophils % 0.3; Eosinophils % 1.2; HCT 38.6 % (36.0-46.0); Immature Grans % 0.6; Lymphocytes % 43.8; MCH 33.9 pg (27.0-33.0); MCHC 36.3 % (32.0-36.0); MCV 94 fL (80-95); MPV 12.1 fL (8.0-11.0); Monocytes % 9.6; Neutrophils % 44.5; RBC 4.13 10^6/uL (3.93-5.22); RDW 15.6 % (11.7-14.6); RDW-SD 53.4 fL; WBC 3.22 10^3/uL (4.4-10.8)
[2021-11-21 06:27] LABS: ALT 262 U/L (14-59); AST 382 U/L (15-37); Albumin 3.4 g/dL (3.4-5.0); Alkaline Phosphatase 348 U/L (46-116); Anion Gap 10.9 mmol/L (3-11); BUN 3 mg/dL (7-18); Bilirubin, Total 0.9 mg/dL (0.2-1.0); CO2 27.1 mmol/L (21.0-32.0); CREATININE 0.7 mg/dL (0.55-1.02); Calcium 9.1 mg/dL (8.5-10.1); Chloride 96 mmol/L (98-107); Glucose 170 mg/dL (74-106); Potassium 4.3 mmol/L (3.5-5.1); Sodium 134 mmol/L (136-145)
[2021-11-21 06:36] LABS: Platelet Count 87 10^3/uL (130-400)
[2021-11-21] MEDS: Folic Acid 1 MG TAB PO (07:45)
[2021-11-21] MEDS: Thiamine 100 MG TAB PO (07:45)
[2021-11-21] MEDS: Multivitamin TAB 1 TAB PO (07:45)
[2021-11-21] MEDS: chlordiazePOXIDE 25 MG CAP 50 MG PO (07:45)
[2021-11-21] MEDS: Pantoprazole 20 MG TABCR PO (07:45)
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
--- NOTE | 2021-11-21 09:54 | NUR.NOTE ---
Nursing shares with MD that patient's family has not called or visited her. MD speaks to Case Management to investigate the homefront to determine whether same is appropriate for patient to return to.Nursing Note:
--- NOTE | 2021-11-21 10:44 | NUR.NOTE ---
Patient returns from shower.Nursing Note:
[2021-11-21] MEDS: Bisacodyl 5 MG TABEC PO (10:54)
[2021-11-21] MEDS: Methylnaltrexone 12 MG/0.6 ML VIAL SC (10:55)
[2021-11-21] MEDS: Magnesium Citrate 300 ML BTL 150 ML PO (11:03)
[2021-11-21] MEDS: Promethazine 25 MG TAB PO (11:03)
--- NOTE | 2021-11-21 11:08 | NUR.NOTE ---
Patient is given 150ml of Mag Citrate and 5mg Ducolax top help patient have a bowel movement as well as 0.6mg of Restor.Nursing Note:
--- NOTE | 2021-11-21 11:16 | NUR.NOTE ---
Patient is given a pair of panties. Patient drinks the entirety of 150ml of Magnesium Citrate.Nursing Note:
--- NOTE | 2021-11-21 12:07 | NUR.NOTE ---
Patient is set up with lunch tray. Patient has a good appetite. Patient did speak with her daughter today on the telephone. Daughter indicated that patient's would be in to visit with patient today or tomorrow.Nursing Note:
[2021-11-21] MEDS: chlordiazePOXIDE 25 MG CAP PO ×3 (13:53→22:00)
[2021-11-21] MEDS: Docusate Sodium 100 MG/10 ML CUP PO ×2 (13:53→22:00)
--- NOTE | 2021-11-21 13:55 | NUR.NOTE ---
Patient awakens from a 1.5 hour sleep.Nursing Note:
[2021-11-21] MEDS: Phenazopyridine 200 MG TAB PO ×2 (14:07→22:00)
[2021-11-21] MEDS: Normal Saline Flush 10 ML SYR IVP (14:17)
[2021-11-21] MEDS: Senna TAB 1 TAB PO (22:00)
--- NOTE | 2021-11-22 | DI.MRI_ITS ---
Exam(s) MR ABDOMEN WO EXAM: MR ABDOMEN WO CLINICAL HISTORY: elevated LFT, abnormal CBD, abd. pain TECHNIQUE: Multiplanar multisequence MRI of the Abdomen was performed. MRCP sequences also perform ed. COMPARISON: CT CT ABDOMEN PELVIS W from 10/17/[address] ABDOMEN PELVIS WO from 11/18/2021 US US ABDOMEN LIMITED from 11/19/2021 FINDINGS: Liver: Enlargement of the left lobe. No focal masses.. Pancreas: Atrophic. Mild dilatation of pancreatic duct. No beading. No cysts or masses. Gallbladder and Bile Ducts: Unremarkable. Common bile duct measures 5 millimeters, normal diameter an d tapers normally to the ampullary. No stones identified. No intrahepatic dilatation. Adrenals: Unremarkable. Kidneys: Unremarkable. Spleen: Unremarkable. Aorta: Unremarkable. Soft Tissues: Unremarkable. Bone: Unremarkable. Lymph Nodes: Unremarkable. IMPRESSION: Enlargement of the left lobe the liver. Common bile duct normal diameter at 5 millimeters. No commo n duct stones. No visible gallstones or gallbladder wall thickening. Atrophic pancreas. DATA REPOSITORY:
[2021-11-22] MEDS: chlordiazePOXIDE 25 MG CAP PO ×3 (07:11→17:01)
[2021-11-22] MEDS: Pantoprazole 20 MG TABCR PO (07:11)
[2021-11-22 07:25] VITALS: BP 92/58; PULSE 75; RESP 18; TEMP 36.6; O2SAT 98
[2021-11-22] MEDS: Acetaminophen 325 MG TAB 650 MG PO (08:05)
[2021-11-22] MEDS: Phenazopyridine 200 MG TAB PO ×2 (08:05→14:00)
[2021-11-22] MEDS: diazePAM 5 MG TAB PO (10:56)
--- NOTE | 2021-11-22 11:27 | PDOC.CMPRO ---
- If Service Date Differs Date of service: 11/22/21 Time of Service: 11:27 Care Management Progress Note S/O: Zahraa was sitting up in bed when CM met with her. She shares that she would like inpatient rehab and never wants to go through withdrawal again. She reported that this is the worse she has ever felt withdrawing. HERRERA contacted [facility] and a elementary instructional coach will meet with Zahraa today after 2:30p. CM placed a referral to [facility], for Case Management in the Community. A: 41 year old female admitted to [facility] on 11/18/21 for Alcohol Withdrawal P: CM will offer pt a disaster recovery manager, community resources and discuss inpatient treatment options when pt is medically stable. Anticipate, pt will discharge home when medically ready per provider and follow up with community providers. Zahraa will transport via private vehicle with family.
[2021-11-22] MEDS: Docusate Sodium 100 MG/10 ML CUP PO (14:00)
[2021-11-22 14:57] LABS: Chlamydia Result Negative (Negative); GC Result Negative (Negative)
[2021-11-22 15:35] VITALS: BP 124/75; PULSE 83; RESP 18; TEMP 36.2; O2SAT 97
--- NOTE | 2021-11-22 16:38 | DSE_ITS ---
Date of service: 11/22/21 Time of Service: 15:38 DS: Diagnosis Discharge Diagnosis (1) Delirium tremens: Status: Resolved Asessment and Plan: see admission H&P and ER notes for details of presentation. Patient was brought to the ED by EMS when they were called to her home d/t patient acting agitated, lying on floor, tremoring, family thought she was having a seizure. EMS found her to be talking through this episode, nevertheless she was given versed by EMS. Evaluation in the ER determined she was in acute alcohol withdrawal as she was tremulous, diaphoretic and tachycardic despite her TAYLOR level to be elevated at 265. She had a GCS of 15 but her CIWA was 40. Her labs demonstrated LFT were elevated w/ AST 824, ALT 272, ALK PHOS 338 but normal lipase and bilirubin. She was treated w/ a single dose of phenobarbital 330 mg and ativan 4 mg. She was started on iv fluids, given folic acid/thiamine and MVS through a banana bag and admitted to the ICU for continued treatment of acute alcohol withdrawal w/ delirium tremens. CT of her abdomen and pelvis was performed and demonstrated worseing hepatic steatosis, and stable chronic calcified pancreas but no peripancreatic fluid or fat stranding and no abscess. Gall bladder demonstrated sludge but no evidence of acute cholecystitis. She did not have any hepatic masses and no splenomegaly. No ascites. Patient was admitted to the ICU for iv hydration, electrolyte replacement, CIWA scoring and acute treatment w/ benzodiazepine (lorazepam PO and IV). She was eventually put on librium scheduled doses at 50 mg qid due to the fact she was requiring such frequent parenteral lorazepam. Her acute alcohol withdrawal symptoms improved over the next couple days and her diet was advanced which she tolerated. Because of persistent abdominal pains, and the evidence for gall bladder sludge an [place]. of her abdomen was performed and demonstrated the followin. Fatty infiltration of the liver. 2. Common duct is 8.2 mm.? This is mildly enlarged given the age of the patient.? No cholelithiasis or choledocholithiasis is identified.? MRI/MRCP should be considered for further evaluation. She requested [facility] consult to have her IUD removed as she believed that this may have contributed to her abdominal pains. Dr. Ospina from [facility] saw the patient (see her note from 11/20. Pelvic exam was normal and the patient's IUD which is a Mirena was removed intact with no vaginal bleeding. Cultures for chlamydia and gonorrhea were obtained adn came back negative. Patient expressed interest in an inpatient alcohol rehab stay. CM set her up with a middle school volleyball coach who met with the patient on the day of her discharge. (2) Alcohol withdrawal: Status: Resolved Asessment and Plan: patient has been referred to a middle school volleyball coach who provided patient information on outpatient and inpatient treatment programs. Patient was adivsed of her enlarged liver and abnormal LFT and need to refrain from further alcohol. (3) Epigastric pain: Status: Resolved Asessment and Plan: patient was tolerating a regular diet w/out vomiting or signficant pain. MRCP was performed on the day of her discharge and this showed normal CBD size of 5 mm without choledocholithiasis, She has an enlarged left lobe of the liver but no focal masses were seen. Pancreas is atrophic. (4) Thrombocytopenia: Status: Chronic Asessment and Plan: platelet counts were 98,000 on admission but reached a ashley of 66,000 before rising to 87,000 on discharge. Imaging of her abdomen did not show hypersplenism. It is presumed that her thrombocytopenia, is due to her acute on chronic alcohol effects. (5) Transaminitis: Status: Acute Asessment and Plan: at the time of her discharge her transaminitis had not resolved but was improvin g. Her admission AST 824, ALT 272, ALK PHOS 338 declined to 382, 262, and 348 respectively. Patient understands that she can no longer drink any alcohol. She met with a middle school volleyball coach prior to discharge home. Discharge Plan Disposition Patient Disposition: HOME Condition: Good Discharge Details Reason For Visit: Alcohol Withdrawal Admit Date/Time: 11/18/21 06:35 Admit Provider: Rajat Flores Attending Provider: Rajat Flores Primary Care Provider: Abiel Clark Kiana Meds and New Rx's Prescriptions: New thiamine mononitrate (vit B1) [Vitamin B-1 (mononitrate)] 100 mg Tablet 100 mg PO QAM Qty: 30 0RF multivitamin [Daily Multi-Vitamin] Tablet 1 tab PO DAILY Qty: 30 0RF chlordiazepoxide HCl 25 mg Capsule See Rx Instructions .ROUTE .COMPLEX Qty: 15 0RF Rx Instructions: 25 mg po tid x 3d then 25 mg bid x 3d then discontinue No Action pantoprazole [Protonix] 20 mg tablet,delayed release (DR/EC) 20 mg PO BID 15 Days Qty: 30 0RF Discharge Instructions Instructions: Alcohol Withdrawal (DC), Alcohol Dependence (DC) Stand Alone Forms: Nursing Discharge Form Referrals: Abiel Clark [Primary Care Provider] - 12/06/21 1:30 pm Activity:: Activity as Tolerated Equipment/Supplies:: No Equipment Needed Diet:: Normal Diet Discharge Orders Discharge Orders: Discharge Order (Routine); Ordered 11/22/21 Ordered By: Johnny Shaffer Discharge Data Discharge Date/Time-TO BE ENTERED AT DEPARTURE: 11/22/21 17:19 DS: Summary Time Spent with Patient providing and/or coordinating discharge services: Less than 30 minutes Status at Discharge Functional status at discharge: independent ambulation Overall status at discharge: patient is progressing back to baseline Mental Status: mental status grossly normal Speech and Movement: speech and movement normal Mood: congruent mood Affect: normal affect Exam Psych Mental Status: mental status grossly normal Speech and Movement: speech and movement normal Mood: congruent mood Affect: normal affect DS: Data Vitals/I&O Vitals and I&O: Vital Signs Temperature 36.2 C L 11/22/21 15:35 Temperature Source Tympanic 11/22/21 15:35 Pulse 83 11/22/21 15:35 Pulse Rhythm Regular 11/22/21 15:39 Pulse 84 11/21/21 04:30 Respiratory Rate 18 11/22/21 15:35 Respiratory Effort 11/22/21 15:39 Respiratory Depth Normal 11/22/21 15:39 Respiratory Pattern Normal 11/22/21 15:39 Blood Pressure 124/75 11/22/21 15:35 Blood Pressure Mean 89 11/21/21 17:17 Blood Pressure Position Supine 11/20/21 14:33 Pulse Oximetry 97 11/22/21 15:35 Respiratory End-tidal CO2 41 11/19/21 08:01 Oxygen Delivery Method Room Air 11/22/21 15:35 Oxygen Flow Rate 0 11/22/21 15:35 Pain Level 9 11/22/21 15:35 Comment 11/19/21 20:20 Intake & Output 11/21/21 11/22/21 11/22/21 23:59 11:59 23:59 Intake Total 1040 / 3174 460 / 460 Output Total 1300 / 2700 1200 / 1200 Balance -260 / 474 -1200 / -740 460 / -740 Weight 51.5 kg Intake: IV 0 / 0 Oral 1040 / 3174 460 / 460 Output: Urine 1300 / 2700 1200 / 1200 Other: Urine Color [place] Urine Appearance Clear Clear Clear Urine Odor Normal Normal Comment pt on pyridium pT voids independently without assistance Stool Size Moderate Stool Characteristics Soft Formed Voiding Methods Bedside Commode Toilet Data Completed and Pending Labs on day of discharge: Labs from last 24 hours 11/20/21 13:00 Chlamydia DNA Probe Negative Chlamydia/GC DNA Source Not Applicable N.gonorrhoeae DNA Probe Negative Preliminary micro results at discharge 11/21/21 10:15 Urine Culture - Preliminary Urine - Clean Catch Gram Positive Amie,Mixed PFSH All Active Problems (Updated 11/23/21 @ 13:16 by Johnny Shaffer) Transaminitis (Acute) Tachycardia (Acute) Hypomagnesemia (Acute) Dehydration (Acute) Condyloma acuminata (Acute) Thrombocytopenia (Chronic) COVID (Acute) Hyperglycemia (Acute) Productive cough (Acute) Ambulatory dysfunction (Acute) Urinary incontinence (Acute) Smoker (Acute) Thrombocytopenia (Chronic) Alcoholic hepatitis (Acute) Tachycardia (Acute) Nausea & vomiting (Acute) Healthcare-associated pneumonia (Acute) Alcohol withdrawal (Acute) Altered mental state (Acute) Acute hyponatremia (Acute) Pancreatic pseudocyst (Chronic) Chronic pancreatitis (Chronic) DVT prophylaxis (Acute) Anxiety (Chronic) History of DVT (deep vein thrombosis) (Chronic) Alcohol abuse (Chronic) Acute pancreatitis (Acute) Medical History (Updated 11/23/21 @ 13:16 by Johnny Shaffer) DVT (deep venous thrombosis) Pancreatitis Seizure disorder Surgical History H/O chest tube placement H/O esophagogastroduodenoscopy H/O LEEP Family History Other Adopted Social History (Updated 11/20/21 @ 13:25 by Kisha Phelps MD) Smoking/Tobacco Use Status: Current every day Tobacco Type: cigarettes Tobacco: How many years used: 21 Smoking risk assessment performed?: Yes Alcohol Intake: current Alcohol Intake frequency: 3 or more drinks per day Alcohol type: beer Drug use: Never Substance use type: marijuana Details: patient states that she has 6 beers or more a day, last drink was 7pm last night Household members: spouse, children and other Details: H. Children 13yo, 16yo. Both attend . Number of Children: 2 In current or past relationships, have you been: made to feel afraid Do you feel safe at home: No Do you feel safe in your relationship?: No Additional Social history: Patient is and has 2 children ages 13 and 14. Moved here from [place] approximately 2 years ago, now lives in [place]. She is a [id number] mother. Reports ongoing alcohol use. 30+-pack-year history of smoking. Pt feels unsafe living with her . Pt States that she feels like he slips her Stuff in her drinks. Female Reproductive History Menstrual Duration of menses: other (menses ever 2-3mo) control method: progestin IUCD History History 2 Para 2 Hx # Term Pregnancies Multiple births Hx # Pregnancies Ectopic pregnancies AB induced Hx Number of Living Children 2 AB spontaneous
--- NOTE | 2021-11-22 16:47 | W.PM.PROGNOT ---
Date of Service Date of service: 11/22/21 Time of Service: 15:47 Assessment and Plan Assessment and plan (1) General counseling and advice on contraceptive management: Status: Acute Assessment and plan: I gave pt my contact information so she could make an appt at [facility] to initiate [facility] [employer] [facility] care. She knows that with her Mirena IUD removed she could conceivably become . She is undecided on a contraceptive method at this time. STI testing currently pending. (2) Condyloma acuminata: Status: Acute Assessment and plan: Pt wishes treatment for vulva lesions. If she does not call the [facility] in a week I will reach out to her. Subjective Subjective Interval history since last seen: Pt reports that she continues to have abdominal and pelvic pain, not to the extent that she had 48hrs ago. Exam Narrative Exam Narrative: Pt was seen in consultation on 11/20/21 for evaluation of Mirena IUD. Pt was concerned that it was contributing to her abdominal pain. Pelvic exam was performed and there were no findings of uterine tenderness or cervical motion tenderness. I removed the Mirena IUD without difficulty and obtained a Chlamydia and Gonorrhea RNA test, the results of which are not back at this time. Const General: frail appearing (unintentional tremor) Nutritional Appearance: thin Orientation: alert, awake and oriented x3 (Patient was able to recall our meeting on 11/20/2021) General: deferred Objective Last Vital Signs Temp 97.2 F L 11/22/21 15:35 Pulse 83 11/22/21 15:35 Resp 18 11/22/21 15:35 BP 124/75 11/22/21 15:35 Pulse Ox 97 11/22/21 15:35 Laboratory Results - last 24 hr 11/20/21 13:00 Chlamydia DNA Probe Negative Chlamydia/GC DNA Source Not Applicable N.gonorrhoeae DNA Probe Negative PAWSS Have you Been Recently Intoxicated or Drunk Within the Last 30 days?: No Have you Ever Experienced Previous Episodes of Alcohol Withdrawal?: Yes Have you ever Experienced Withdrawal Seizures?: Yes Have you ever Experienced Delirium Tremens(DT)s?: Yes Have you ever undergone Alcohol Rehabilitation Treatment (i.e, inpt ot outpatient treatment programs)?: Unable to Obtain Have you ever Experienced Blackouts?: Yes Have you ever Combined Alcohol with other Downers within the last 90 days?: Yes Have you ever Combined Alcohol with any other Substance of Abuse during the last 90 days?: Yes Positive Blood Alcohol level on Presentation? [PCS.BAL]: Yes Evidence of Increased Autonomic Activity (i.e. HR>120, tremor, sweating, agitation, nausea)?: Yes Result: 8
== END 2021-11-22 17:19 | disposition home or self-care (01) | DRG 897 ==
LOC: ER 06:48 → ICU 07:06 → MS 11-21 22:19
PROVIDERS: Internal Medicine; Obstetrics & Gynecology Gynecology; Admitting Provider Family Medicine; Emergency Provider Student in an Organized Health Care Education/Training Program; PCP Family Medicine; Visit Provider Family Medicine
DX: F10.231 Alcohol dependence with withdrawal delirium (principal); E87.1 Hypo-osmolality and hyponatremia; K86.3 Pseudocyst of pancreas; K86.1 Other chronic pancreatitis; K29.20 Alcoholic gastritis without bleeding; F17.210 Nicotine dependence, cigarettes, uncomplicated; R56.9 Unspecified convulsions; F41.9 Anxiety disorder, unspecified; K70.10 Alcoholic hepatitis without ascites; R73.9 Hyperglycemia, unspecified; K86.89 Other specified diseases of pancreas; R26.89 Other abnormalities of gait and mobility; R32 Unspecified urinary incontinence; R00.0 Tachycardia, unspecified; Z86.718 Personal history of other venous thrombosis and embolism; D69.59 Other secondary thrombocytopenia; Z86.16 Personal history of COVID-19; K76.0 Fatty (change of) liver, not elsewhere classified; K82.8 Other specified diseases of gallbladder; R10.13 Epigastric pain; R74.01 Elevation of levels of liver transaminase levels; A63.0 Anogenital (venereal) warts
CPT/HCPCS: 58301; 36415; 80053; 80307; 82805; 83690; 86704; 86709; 86803; 87340; 87491; 87591; 87635; 93005; 74176; 74181; 76705; 80320; 80329; 82140; 83036; 83735; 84100; 84484; 85025; 87086; 93010; 99223; 99232; 99238; J1170; J2060; J2270; J2405; J2560

== ENCOUNTER 2021-11-23 02:56 | Emergency (ER) | payer MEDICAID, SELFPAY ==
[2021-11-23] VITALS (59 sets, daily range): BP systolic 95–147; BP diastolic 53–115; PULSE 76–131; RESP 10–45; TEMP 36.2; O2SAT 97–100
[2021-11-23 03:15] LABS: Bilirubin Negative (Negative); Blood Negative (Negative); Clarity Clear (Clear); Glucose 500 mg/dL (Negative); Ketones Negative (Negative); Leukocyte Esterase Negative (Negative); Nitrite Negative (Negative); Specific Gravity <= 1.005 (1.005-1.025); Urobilinogen 0.2 EU/dL (Up TO 0.2)
--- NOTE | 2021-11-23 03:15 | RT.EKG_ITS ---
APPROVED REPORT Exam: Resting ECG Reason for Exam: seizure Patient Location: E HR:109 bpm ECG Measurements Heart Rate 109 AXIS TN 179 P 43 QRSd 84 QRS 60 QT 326 T 25 QTc 439 Conclusion Sinus tachycardia...rate> 99. Sinus. Normal axis. No STEMI. I have reviewed and interpreted ECG and agree with software generated interpretation.
--- NOTE | 2021-11-23 03:42 | W.ED.GENAD ---
Discharge Plan Disposition Patient Disposition: HOME Condition: Stable Discharge Details Clinical Impression: Tachycardia, Hypomagnesemia, Dehydration Primary Care Provider: Abiel Clark ED Provider: Pramod Mackey Home Meds and New Rx's Prescriptions: New pantoprazole [Protonix] 20 mg tablet,delayed release (DR/EC) 20 mg PO BID 15 Days Qty: 30 0RF Continued thiamine mononitrate (vit B1) [Vitamin B-1 (mononitrate)] 100 mg Tablet 100 mg PO QAM Qty: 30 0RF multivitamin [Daily Multi-Vitamin] Tablet 1 tab PO DAILY Qty: 30 0RF chlordiazepoxide HCl 25 mg Capsule See Rx Instructions .ROUTE .COMPLEX Qty: 15 0RF Rx Instructions: 25 mg po tid x 3d then 25 mg bid x 3d then discontinue Discharge Instructions Instructions: Dehydration (ED), Hypomagnesemia (ED) Additional Instructions: Your magnesium today was mildly low and you were given magnesium supplementation. Your EKG and imaging today is reassuring. Continue your Librium at home as needed for any symptoms or signs of alcohol withdrawal. Take Protonix as prescribed. Please rest today with small, frequent sips of fluids to maintain good hydration. May benefit from Pepto-Bismol twice daily, please note that this will typically turn your stool black. Observe a bland diet. Take the Librium as previously prescribed. Follow-up with your primary care doctor in 1 week. Return to the emergency department with any worsening or new concerning symptoms. Discharge Data Discharge Physician: Asuncion Verde Medical Decision Making <Asuncion Verde, - Last Filed: 11/23/21 07:53> 0300 -- 41-year-old female with a history of chronic alcohol abuse, chronic pancreatitis who was discharged from [facility] yesterday after admitted for alcohol withdrawal and delirium tremens presents for concern for possible seizure activity and pain all over from my head to my toes. EMS reports no observable seizure activity upon arrival. EMS reports glucose in the 300s. Patient is awake and alert and appears anxious but no evidence of diaphoresis or seizure activity. Heart rate 120s. She is afebrile with normal oxygen saturation. She has no focal deficits on exam. She complained of chest pain developing shortly after my exam and EKG was reassuring with a heart rate of 109, sinus, normal axis, no STEMI and nondiagnostic. She denies any alcohol use since being discharged and her symptoms had improved prior to discharge yesterday so alcohol withdrawal seizure appears unlikely. Differential diagnosis includes dehydration, electrolyte abnormality, arrhythmia, PE, ACS. We will place an IV, bolus IV fluids, screening labs, urinalysis, CT head, chest x-ray. Nursing unable to obtain IV and will give oral Zofran and Ativan. Once IV established, will give Pepcid IV and bolus IV fluids. 0445 -- labs reviewed. Normal white blood cell count and hemoglobin. Glucose 273 with normal bicarb and anion gap. Elevation of liver enzymes near or lower than her usual baseline. Troponin and lipase within normal limits. Urinalysis negative for infection. CT head and chest x-ray negative. Multiple attempts at IV unsuccessful by nursing and physician. Patient was given Pepcid and Ativan p.o. Her heart remains tachycardic at 110s. 0720 -- Anesthesia able to place a midline. Will start her IV fluids, IV magnesium and give IV Toradol for pain. Patient is complaining of persistent nausea, left-sided chest and epigastric pain. Her D-dimer is within normal limits. We will repeat troponin and EKG, give a GI cocktail and IV Phenergan. Repeat EKG notes a rate of 83, sinus, normal axis, no STEMI. 0800 -- Case endorsed to Dr. Mackey to monitor for any signs of withdrawal or seizure activity, reassess after fluids and meds, follow-up on repeat troponin and final disposition. Medical Records Medical records reviewed: Yes I reviewed the patient's medical records. Imaging Data Radiologic Study: Radiologist's impression: XR Chest Exam date and time: 11/23/2021 4:40 AM Age: 41 years old Clinical indication: Sternal or substernal pain and left-sided; Patient HX: Chest pain, tachycardia, R/O acute disease TECHNIQUE: Imaging protocol: XR of the chest. Views: 2 views. COMPARISON: CR XR CHEST 2V PA LATERAL 04/04/2020 12:52 PM FINDINGS: Lungs: Unremarkable. No consolidation. Pleural spaces: Unremarkable. No pleural effusion. No pneumothorax. Heart/Mediastinum: Unremarkable. No cardiomegaly. Bones/joints: Unremarkable. IMPRESSION: No acute findings. CT Head Without Contrast Exam date and time: 11/23/2021 4:21 AM Age: 41 years old Clinical indication: Pain; Headache not specified; Patient HX: Headache, R/O acute disease process; Additional info: H/o alcohol withdrawal seizure TECHNIQUE: Imaging protocol: Computed tomography of the head without contrast. Radiation optimization: All CT scans at this facility use at least one of these dose optimization techniques: automated exposure control; mA and/or kV adjustment per patient size (includes targeted exams where dose is matched to clinical indication); or iterative reconstruction. COMPARISON: CT HEAD WO 11/26/2018 3:03 PM FINDINGS: Brain:? Mild volume loss No hemorrhage. Unremarkable white matter. No mass effect. Cerebral ventricles: No ventriculomegaly. Paranasal sinuses: Visualized sinuses are unremarkable. No fluid levels. Mastoid air cells: Visualized mastoid air cells are well aerated. Bones/joints: Unremarkable. No acute fracture. Soft tissues: Unremarkable. IMPRESSION: No acute intracranial abnormality. Lab Data Lab results reviewed: Yes I reviewed the patient's lab results. ECG Data Attestation: I personally reviewed and interpreted this ECG (s) as follows: Interpretation: #1 -- Rate of 109, sinus, normal axis. #2 -- Rate of 83, sinus, normal axis. <Pramod Mackey MD - Last Filed: 11/23/21 10:29> 0300 -- 41-year-old female with a history of chronic alcohol abuse, chronic pancreatitis who was discharged from [facility] yesterday after admitted for alcohol withdrawal and delirium tremens presents for concern for possible seizure activity and pain all over from my head to my toes. EMS reports no observable seizure activity upon arrival. EMS reports glucose in the 300s. Patient is awake and alert and appears anxious but no evidence of diaphoresis or seizure activity. Heart rate 120s. She is afebrile with normal oxygen saturation. She has no focal deficits on exam. She complained of chest pain developing shortly after my exam and EKG was reassuring with a heart rate of 109, sinus, normal axis, no STEMI and nondiagnostic. She denies any alcohol use since being discharged and her symptoms had improved prior to discharge yesterday so alcohol withdrawal seizure appears unlikely. Differential diagnosis includes dehydration, electrolyte abnormality, arrhythmia, PE, ACS. We will place an IV, bolus IV fluids, screening labs, urinalysis, CT head, chest x-ray. Nursing unable to obtain IV and will give oral Zofran and Ativan. Once IV established, will give Pepcid IV and bolus IV fluids. 0445 -- labs reviewed. Normal white blood cell count and hemoglobin. Glucose 273 with normal bicarb and anion gap. Elevation of liver enzymes near or lower than her usual baseline. Troponin and lipase within normal limits. Urinalysis negative for infection. CT head and chest x-ray negative. Multiple attempts at IV unsuccessful by nursing and physician. Patient was given Pepcid and Ativan p.o. Her heart remains tachycardic at 110s. 0720 -- Anesthesia able to place a midline. Will start her IV fluids, IV magnesium and give IV Toradol for pain. Patient is complaining of persistent nausea, left-sided chest and epigastric pain. Her D-dimer is within normal limits. We will repeat troponin and EKG, give a GI cocktail and IV Phenergan. Repeat EKG notes a rate of 83, sinus, normal axis, no STEMI. 0800 -- Case endorsed to Dr. Mackey to monitor for any signs of withdrawal or seizure activity, reassess after fluids and meds, follow-up on repeat troponin and final disposition. Addendum (RGT): Patient improved following medications. We will treat her for alcoholic gastritis and she will continue previously prescribed Librium. Lab Data Lab results reviewed: Yes I reviewed the patient's lab results. Labs: Laboratory Results - last 24 hr 11/23/21 11/23/21 11/23/21 03:08 03:55 03:55 WBC 8.19 RBC 3.86 L Hgb 12.8 Hct 37.9 MCV 98 H D MCH 33.2 H MCHC 33.8 D RDW 16.4 H Plt Count 145 D MPV 10.4 Immature Gran % 0.9 Neutrophils % 77.0 Lymphocytes % 13.2 Monocytes % 8.4 Eosinophils % 0.1 Basophils % 0.4 Nucleated RBC % 0.0 Absolute Neutrophils 6.31 Absolute Lymphocytes 1.08 L Absolute Monocytes 0.69 Absolute Eosinophils 0.01 Absolute Basophils 0.03 D-Dimer Sodium 137 Potassium 4.0 Chloride 101 Carbon Dioxide 28.9 Anion Gap 7.1 BUN 4 L Creatinine 0.7 Estimated GFR/1.73 m2 >= 60.00 Glucose 273 H Calcium 9.1 Magnesium 1.6 L Total Bilirubin 0.4 AST 113 H ALT 172 H Alkaline Phosphatase 278 H Troponin I < 50 Total Protein 7.1 Albumin 3.7 Lipase Urine Color Yellow Urine Clarity Clear Urine pH 6.0 Ur Specific [place] <= 1.005 Urine Protein Negative Urine Ketones Negative Urine Blood Negative Urine Nitrite Negative Urine Bilirubin Negative Urine Urobilinogen 0.2 Ur Leukocyte Esterase Negative Urine Glucose 500 H 11/23/21 11/23/21 11/23/21 03:55 06:07 07:38 WBC RBC Hgb Hct MCV MCH MCHC RDW Plt Count MPV Immature Gran % Neutrophils % Lymphocytes % Monocytes % Eosinophils % Basophils % Nucleated RBC % Absolute Neutrophils Absolute Lymphocytes Absolute Monocytes Absolute Eosinophils Absolute Basophils D-Dimer 230 Sodium Potassium Chloride Carbon Dioxide Anion Gap BUN Creatinine Estimated GFR/1.73 m2 Glucose Calcium Magnesium Total Bilirubin AST ALT Alkaline Phosphatase Troponin I < 50 Total Protein Albumin Lipase 6 Urine Color Urine Clarity Urine pH Ur Specific [place] Urine Protein Urine Ketones Urine Blood Urine Nitrite Urine Bilirubin Urine Urobilinogen Ur Leukocyte Esterase Urine Glucose HPI <Asuncion Verde, DO - Last Filed: 11/23/21 07:53> General Mode of arrival: EMS. Date/Time Provider Initiated Documentation: 11/23/21 03:02. Limitations to Documentation: no limitations. Information obtained by: patient. HPI Narrative: Patient is a 41-year-old female with a history of alcohol abuse with alcohol withdrawal seizures, pancreatitis, DVT who was discharged from here yesterday afternoon for alcohol withdrawal seizures who presents for possible seizure at home this morning. EMS noted that she did not seem to have seizure activity upon arrival. EMS noted that her sugar was 300. Patient states she thinks her seizure-like activity lasted for approximately 1 hour. She is also endorsing pain all over from her head to her feet. Patient states she also feels confused. She states she felt better when she was discharged from here yesterday afternoon. She states she has not drank any alcohol since before she was admitted here last week. She denies any drug use. She states she last took a Librium 5 hours ago as scheduled. Related Data Home Medications Medication Instructions Recorded Confirmed chlordiazepoxide HCl 25 mg capsule See Rx Instructions .Route 11/22/21 11/23/21 .COMPLEX #15 caps multivitamin (Daily Multi-Vitamin 1 tab PO DAILY #30 tabs 11/22/21 11/23/21 tablet) thiamine mononitrate (vit B1) 100 100 mg PO QAM #30 tabs 11/22/21 11/23/21 mg tablet (Vitamin B-1 (mononitrate)) pantoprazole 20 mg tablet,delayed 20 mg PO BID 15 days #30 tabs 11/23/21 release (Protonix) Previous Rx's Medication Instructions Recorded chlordiazepoxide HCl 25 mg capsule See Rx Instructions .Route 11/22/21 .COMPLEX #15 caps multivitamin (Daily Multi-Vitamin 1 tab PO DAILY #30 tabs 11/22/21 tablet) thiamine mononitrate (vit B1) 100 100 mg PO QAM #30 tabs 11/22/21 mg tablet (Vitamin B-1 (mononitrate)) pantoprazole 20 mg tablet,delayed 20 mg PO BID 15 days #30 tabs 11/23/21 release (Protonix) Allergies Allergy/AdvReac Type Severity Reaction Status Date / Time amoxicillin Allergy Unverified 11/23/21 03:07 codeine Allergy Unverified 11/23/21 03:07 General Stated Complaint: ETOHWithdr JAMEEL: 2 Review of Systems <Asuncion Verde DO - Last Filed: 11/23/21 07:53> All systems reviewed & are unremarkable except as noted in HPI and below Constitutional Constitutional: Denies chills, Denies excessive sweating, Denies fatigue, Denies fever(s), Reports headache(s), Denies weakness and Denies weight loss Eyes Eyes: Reports system reviewed and no additional complaints, except as documented and Denies blurry vision ENT Ears, Nose, Mouth, and Throat: Denies vertigo, Denies dizziness, Denies otalgia, Reports headache(s), Denies nasal congestion, Denies sore throat and Denies throat swelling Cardiovascular Cardiovascular: Denies chest pain, Denies syncope, Denies rapid heart rate and Denies dyspnea Respiratory Respiratory: Denies chest congestion, Denies cough, Denies pain on inspiration and Denies dyspnea Gastrointestinal Gastrointestinal: Denies abdominal pain, Denies diarrhea, Reports nausea and Denies vomiting Genitourinary Genitourinary: Denies hematuria, Denies dysuria and Denies flank pain Musculoskeletal Musculoskeletal: Denies back pain and Denies joint swelling Integumentary/Breasts Skin/Breast: Denies lesions and Denies rash Neurologic Neurologic: Denies behavioral changes, Denies confusion, Denies vertigo, Denies dizziness, Denies syncope, Reports headache(s), Denies localized weakness, Reports convulsions and Denies weakness Psychiatric Psychiatric: Denies behavioral changes, Denies confusion and Denies depression Endocrine Endocrine: Denies excessive sweating and Denies fatigue Hematologic/Lymphatic Hematologic/Lymphatic: Denies easy bruising and Denies lymphadenopathy Allergic/Immunologic Allergic/Immunologic: Denies throat swelling PFSH <Asuncion Verde DO - Last Filed: 11/23/21 07:53> All Active Problems (Updated 11/23/21 @ 06:47 by Asuncion Verde DO) Tachycardia (Acute) Hypomagnesemia (Acute) Dehydration (Acute) Condyloma acuminata (Acute) Thrombocytopenia (Chronic) COVID (Acute) Hyperglycemia (Acute) Productive cough (Acute) Ambulatory dysfunction (Acute) Urinary incontinence (Acute) Smoker (Acute) Thrombocytopenia (Chronic) Alcoholic hepatitis (Acute) Tachycardia (Acute) Nausea & vomiting (Acute) Healthcare-associated pneumonia (Acute) Alcohol withdrawal (Acute) Altered mental state (Acute) Acute hyponatremia (Acute) Pancreatic pseudocyst (Chronic) Chronic pancreatitis (Chronic) DVT prophylaxis (Acute) Anxiety (Chronic) History of DVT (deep vein thrombosis) (Chronic) Alcohol abuse (Chronic) Acute pancreatitis (Acute) Medical History (Updated 11/23/21 @ 06:47 by Asuncion Verde DO) DVT (deep venous thrombosis) Pancreatitis Seizure disorder Surgical History H/O chest tube placement H/O esophagogastroduodenoscopy H/O LEEP Family History Other Adopted Social History (Updated 11/20/21 @ 13:25 by Kisha Phelps MD) Smoking/Tobacco Use Status: Current every day Tobacco Type: cigarettes Tobacco: How many years used: 21 Smoking risk assessment performed?: Yes Alcohol Intake: current Alcohol Intake frequency: 3 or more drinks per day Alcohol type: beer Drug use: Never Substance use type: marijuana Details: patient states that she has 6 beers or more a day, last drink was 7pm last night Household members: spouse, children and other Details: H. Children 13yo, 16yo. Both attend . Number of Children: 2 In current or past relationships, have you been: made to feel afraid Do you feel safe at home: No Do you feel safe in your relationship?: No Additional Social history: Patient is and has 2 children ages 13 and 14. Moved here from [place] approximately 2 years ago, now lives in [place]. She is a [id number] mother. Reports ongoing alcohol use. 30+-pack-year history of smoking. Pt feels unsafe living with her . Pt States that she feels like he slips her Stuff in her drinks. Female Reproductive History Menstrual Duration of menses: other (menses ever 2-3mo) control method: progestin IUCD History History 2 Para 2 Hx # Term Pregnancies Multiple births Hx # Pregnancies Ectopic pregnancies AB induced Hx Number of Living Children 2 AB spontaneous Exam <Asuncion Verde DO - Last Filed: 11/23/21 07:53> Const General: cooperative Orientation: alert, awake and oriented x3 HENMT Head: normal to inspection Ears: hearing grossly normal bilaterally, external ears normal and TM's normal bilaterally General nose exam: external nose normal Face and sinus: normal facial exam Mouth: oral mucosae normal Teeth and gingiva: dentition normal Throat: posterior oropharynx normal Eyes General: appearance normal, both eyes and all related structures Eyelids: eyelids normal Pupils: PERRL EOM: EOM intact bilaterally Neck Neck: normal visual inspection Lymphatic: no lymphadenopathy noted Chest Chest: normal inspection of the chest Resp Effort & Inspection: normal respiratory effort and able to speak in complete sentences Auscultation: clear to auscultation bilaterally Cardio Rate: tachycardic Rhythm: regular rhythm GI Inspection: normal to inspection Palpation: soft, not firm, no guarding, no hepatosplenomegaly, no masses and nontender Auscultation: normal bowel sounds Back/Spine/Pelvis Thoracic/Lumbar Spine: thoracic and lumbar spine normal to inspection Skin General skin exam: no rashes or lesions noted Neuro General: patient alert, patient awake, moves all extremities, no meningeal signs and no focal motor deficits Cognition: normal cognition Speech: speech normal Gait: normal gait Motor: muscle tone normal throughout and strength 5/5 throughout Sensory Exam: no sensory deficits noted Extrem General: normal to inspection, full ROM and capillary refill normal Psych Appearance: grossly normal Mental Status: mental status grossly normal Speech and Movement: speech and movement normal Affect: normal affect Thought Process: normal Course <Asuncion Vered DO - Last Filed: 11/23/21 07:53> Vital Signs Vital signs: Vital Signs Temperature 97.2 F L 11/23/21 02:58 Pulse 129 H 11/23/21 02:58 Respiratory Rate 25 H 11/23/21 02:58 Blood Pressure 147/83 H 11/23/21 02:58 Pulse Oximetry 100 11/23/21 02:58 Temperature 97.2 F L 11/23/21 02:58 Temperature Source Skin 11/23/21 02:58 Pulse 129 H 11/23/21 02:58 Respiratory Rate 25 H 11/23/21 02:58 Respiratory Effort 11/23/21 03:09 Respiratory Pattern Normal 11/23/21 03:10 Blood Pressure 147/83 H 11/23/21 02:58 Blood Pressure Position Supine 11/23/21 02:58 Pulse Oximetry 100 11/23/21 02:58 Pain Level 10 11/23/21 02:58 Lab/Test Results Lab/Test Results: Laboratory Tests Range/Units 11/23/21 03:08 Urine Color (Yellow) Yellow Urine Clarity (Clear) Clear Urine pH (5-8) 6.0 Ur Specific [place] (1.005-1.025) <= 1.005 Urine Protein (Negative) mg/dL Negative Urine Ketones (Negative) mg/dL Negative Urine Blood (Negative) Negative Urine Nitrite (Negative) Negative Urine Bilirubin (Negative) Negative Urine Urobilinogen (Up TO 0.2) EU/dL 0.2 Ur Leukocyte Esterase (Negative) Negative Urine Glucose (Negative) mg/dL 500 H POC- Test(urine) Negative Sign Out <Asuncion Verde DO - Last Filed: 11/23/21 07:53> Sign Out Data: Sign Out Comment: Discharged from the ICU yesterday for alcohol withdrawal. Presented as a possible seizure. No seizure activity or evidence of alcohol withdrawal in the ED this morning. She has complained of pain all over and she has been tachycardic. Magnesium 1.6 but otherwise work-up unremarkable for acute findings. Plan will be for reassessment after IV fluids and IV toradol. If heart rate continues to improve and she demonstrates no signs of alcohol withdrawal, can consider discharge to home. Last updated by Asuncion Verde DO at 11/23/21 07:16 PAWSS <Asuncion Verde DO - Last Filed: 11/23/21 07:53> Have you Been Recently Intoxicated or Drunk Within the Last 30 days?: Yes Have you Ever Experienced Previous Episodes of Alcohol Withdrawal?: Yes Have you ever Experienced Withdrawal Seizures?: Yes Have you ever Experienced Delirium Tremens(DT)s?: Yes Have you ever undergone Alcohol Rehabilitation Treatment (i.e, inpt ot outpatient treatment programs)?: Yes Have you ever Experienced Blackouts?: Yes Have you ever Combined Alcohol with other Downers within the last 90 days?: Yes Have you ever Combined Alcohol with any other Substance of Abuse during the last 90 days?: Yes Positive Blood Alcohol level on Presentation? [PCS.BAL]: Unable to Obtain Evidence of Increased Autonomic Activity (i.e. HR>120, tremor, sweating, agitation, nausea)?: Yes Result: 9 <Pramod Mackey MD - Last Filed: 11/23/21 10:29> Result: 9
--- NOTE | 2021-11-23 04:00 | DI.CT_ITS ---
Exam(s) CT HEAD WO EXAM: CT HEAD WO CLINICAL HISTORY: headache, r/o acute disease process. TECHNIQUE: Imaging Protocol: Axial computed tomography images with coronal and sagittal reformatted images were created and reviewed COMPARISON: CT CT HEAD WO from 11/26/2018 FINDINGS: Ventricles and Extra axial spaces: Normal in size and morphology for the patient's age. Hemorrhage: None. Cerebral parenchyma: Normal. Midline shift: None. Brainstem/Cerebellum: Normal. Calvarium: Normal. Visualized Paranasal sinuses/Mastoids: Clear. Soft Tissues: Unremarkable. IMPRESSION: No acute intracranial process. RADIATION DOSE DELIVERED: 595.78mGy.cm Total DLP DATA REPOSITORY: All CT scans at this facility are submitted to the National Radiology Data Registry (NRDR) Dose Index Registry (DIR) with the [employer] (A[employer]). RADIATION OPTIMIZATION: All CT scans at this facility use at least one of these dose optimization te chniques: automated exposure control; mA and/or kV adjustment per patient size (includes targeted exa ms where dose is matched to clinical indication); or iterative reconstruction.
--- NOTE | 2021-11-23 04:00 | DI.RAD_ITS ---
Exam(s) XR CHEST 2V PA LATERAL EXAM: XR CHEST 2V PA LATERAL CLINICAL HISTORY: chest pain, tachycardia, r/o acute disease TECHNIQUE: 2D digital imaging was performed. COMPARISON: No exams were available for comparison FINDINGS: MEDIASTINUM: Normal. HEART: Normal. PULMONARY VASCULATURE: Normal. LUNGS: Clear. PLEURAL SPACE: No pleural effusion or pneumothorax. BONE:Unremarkable for age. IMPRESSION: No acute abnormality. DATA REPOSITORY: RADIATION DOSE DELIVERED:
[2021-11-23 04:15] LABS: Abs Immature Grans 0.07 10^3/uL (0.0-0.06); Absolute Basophil Count 0.03 10^3/uL (0.0-0.2); Absolute Eosinophil Count 0.01 10^3/uL (0.0-0.7); Absolute Lymphocyte Count 1.08 10^3/uL (1.2-3.4); Absolute Monocyte Count 0.69 10^3/uL (0.1-0.8); Absolute Neutrophil Count 6.31 10^3/uL (1.2-6.7); Basophils % 0.4; Eosinophils % 0.1; HCT 37.9 % (36.0-46.0); HGB 12.8 g/dL (11.2-15.7); Immature Grans % 0.9; Lymphocytes % 13.2; MCH 33.2 pg (27.0-33.0); MCHC 33.8 % (32.0-36.0); MCV 98 fL (80-95); MPV 10.4 fL (8.0-11.0); Monocytes % 8.4; Platelet Count 145 10^3/uL (130-400); RBC 3.86 10^6/uL (3.93-5.22); RDW 16.4 % (11.7-14.6); RDW-SD 59.5 fL; WBC 8.19 10^3/uL (4.4-10.8)
[2021-11-23] MEDS: Ondansetron O.D.T. 4 MG TABEF PO (04:18)
[2021-11-23] MEDS: LORazepam 1 MG TAB PO (04:18)
[2021-11-23 04:30] LABS: ALT 172 U/L (14-59); AST 113 U/L (15-37); Albumin 3.7 g/dL (3.4-5.0); Alkaline Phosphatase 278 U/L (46-116); Anion Gap 7.1 mmol/L (3-11); BUN 4 mg/dL (7-18); Bilirubin, Total 0.4 mg/dL (0.2-1.0); CO2 28.9 mmol/L (21.0-32.0); CREATININE 0.7 mg/dL (0.55-1.02); Calcium 9.1 mg/dL (8.5-10.1); Chloride 101 mmol/L (98-107); Glucose 273 mg/dL (74-106); Magnesium 1.6 mg/dL (1.8-2.4); Sodium 137 mmol/L (136-145); Total Protein 7.1 g/dL (6.4-8.2); Troponin I < 50 ng/L (<or=60)
[2021-11-23 04:45] LABS: Lipase 6 U/L (73-393)
[2021-11-23] MEDS: Normal Saline 1,000 ML 1000 ML IV (05:00)
--- NOTE | 2021-11-23 05:39 | DI.VRAD_ITS ---
PROCEDURE INFORMATION: Exam: CT Head Without Contrast Exam date and time: 11/23/2021 4:21 AM Age: 41 years old Clinical indication: Pain; Headache not specified; Patient HX: Headache, R/O acute disease process; Additional info: H/o alcohol withdrawal seizure TECHNIQUE: Imaging protocol: Computed tomography of the head without contrast. Radiation optimization: All CT scans at this facility use at least one of these dose optimization techniques: automated exposure control; mA and/or kV adjustment per patient size (includes targeted exams where dose is matched to clinical indication); or iterative reconstruction. COMPARISON: CT HEAD WO 11/26/2018 3:03 PM FINDINGS: Brain: Mild volume loss No hemorrhage. Unremarkable white matter. No mass effect. Cerebral ventricles: No ventriculomegaly. Paranasal sinuses: Visualized sinuses are unremarkable. No fluid levels. Mastoid air cells: Visualized mastoid air cells are well aerated. Bones/joints: Unremarkable. No acute fracture. Soft tissues: Unremarkable. IMPRESSION: No acute intracranial abnormality. Dictated and Authenticated by: Bob Mejia MD. Ordering:MARIO Roland MD
--- NOTE | 2021-11-23 05:39 | DI.VRAD_ITS ---
PROCEDURE INFORMATION: Exam: XR Chest Exam date and time: 11/23/2021 4:40 AM Age: 41 years old Clinical indication: Sternal or substernal pain and left-sided; Patient HX: Chest pain, tachycardia, R/O acute disease TECHNIQUE: Imaging protocol: XR of the chest. Views: 2 views. COMPARISON: CR XR CHEST 2V PA LATERAL 04/04/2020 12:52 PM FINDINGS: Lungs: Unremarkable. No consolidation. Pleural spaces: Unremarkable. No pleural effusion. No pneumothorax. Heart/Mediastinum: Unremarkable. No cardiomegaly. Bones/joints: Unremarkable. IMPRESSION: No acute findings. Dictated and Authenticated by: Bob Mejia MD. Ordering:MARIO Roland MD
[2021-11-23] MEDS: LORazepam 1 MG TAB (06:11)
[2021-11-23] MEDS: Famotidine 20 MG TAB (06:12)
[2021-11-23 07:04] LABS: D-Dimer 230 ng/mlFEU (<500)
--- NOTE | 2021-11-23 07:22 | W.ANESVAS ---
Midline Placement Date Performed: 11/23/21 Procedure Time: 07:15 Requesting Provider: Asuncion Verde Procedure Location: Emergency Department Sedation Given (Indicate Dose Given): No Sedation given Patient Mental Status: Awake Sterility: Hand Hygiene, Surgical Mask and Chlorhexidine Laterality: Left Insertion Site: Basilic Midline Device: PowerGlide Pro 20G Catheter Length: 10 cm Midline Procedure Procedure: 1% Lidocaine to skin and subcutaneous tissue with 25g needle, Vessel accessed with catheter over needle, Guidewire placed with ease, Catheter placed without resistance and Guidewire removed Dressing: Tegaderm Applied and Statlock Applied Blood Return: Present Flushes: Easily Ultrasound: Sterile probe cover and gel used Ultrasound Image Saved?: Yes Number of Attempts (See previous attempts in note section): 1 Procedure Tolerated: No Complications and Patient tolerated well Procedure Outcome: Successful Procedure Comment:: Pt. tolerated well. Very anxious and required lots of coaching and explanation. Performed By: Alvaro Whipple
[2021-11-23] MEDS: Lidocaine 1% Pres-Free 5 ML VIAL (07:25)
[2021-11-23] MEDS: Ketorolac 30 MG/ML VIAL IVP (07:25)
[2021-11-23] MEDS: MAGNESIUM SULFATE 1 GM/100 ML BAG IVPB (07:25)
--- NOTE | 2021-11-23 07:30 | RT.EKG_ITS ---
APPROVED REPORT Exam: Resting ECG Reason for Exam: chest/epigastric pain Patient Location: E HR:83 bpm ECG Measurements Heart Rate 83 AXIS ME 174 P 36 QRSd 88 QRS 67 QT 362 T 35 QTc 427 Conclusion Sinus rhythm...normal P axis, V-rate 60- 99. Sinus. Normal axis. No STEMI. I have reviewed and interpreted ECG and agree with software generated interpretation.
[2021-11-23 07:59] LABS: Troponin I < 50 ng/L (<or=60)
[2021-11-23] MEDS: LORazepam 2 MG/ML VIAL 0.5 MG IVP (08:33)
[2021-11-23] MEDS: Pantoprazole 40 MG VIAL IVP (08:34)
== END 2021-11-23 10:11 | disposition home or self-care (01) ==
PROVIDERS: Physician Assistant; Emergency Provider Emergency Medicine; PCP Family Medicine
DX: R00.0 Tachycardia, unspecified (principal); E86.0 Dehydration; E83.42 Hypomagnesemia; R07.9 Chest pain, unspecified; R56.9 Unspecified convulsions; R10.13 Epigastric pain
CPT/HCPCS: 36415; 80053; 81025; 83690; 93005; 96361; 96365; 96375; 99284; 36410; 70450; 71046; 81003; 83735; 84484; 85025; 85379; 93010; J1885; J2060; J3475

== ENCOUNTER 2021-11-24 11:20 | Emergency (ER) | payer MEDICAID, SELFPAY ==
[2021-11-24] VITALS (11 sets, daily range): BP systolic 122–154; BP diastolic 69–80; PULSE 91–112; RESP 15–34; TEMP 36.5–37; O2SAT 99–100
--- NOTE | 2021-11-24 11:52 | ED.GENADUL_ITS ---
Discharge Plan Disposition Patient Disposition: HOME Condition: Stable Discharge Details Clinical Impression: Hypomagnesemia, Hyperglycemia Primary Care Provider: Abiel Clark ED Provider: Sumi Naranjo Home Meds and New Rx's Prescriptions: New promethazine 12.5 mg tablet 12.5 mg PO TID PRN (Reason: nausea and vomiting) Qty: 14 0RF Rx Instructions: Take 3 times daily as needed for nausea and vomiting Continued thiamine mononitrate (vit B1) [Vitamin B-1 (mononitrate)] 100 mg Tablet 100 mg PO QAM Qty: 30 0RF Label Comments: not for a while multivitamin [Daily Multi-Vitamin] Tablet 1 tab PO DAILY Qty: 30 0RF Label Comments: not for a while chlordiazepoxide HCl 25 mg Capsule See Rx Instructions .ROUTE .COMPLEX Qty: 15 0RF Rx Instructions: 25 mg po tid x 3d then 25 mg bid x 3d then discontinue pantoprazole [Protonix] 20 mg tablet,delayed release (DR/EC) 20 mg PO BID 15 Days Qty: 30 0RF Discharge Instructions Instructions: Hypomagnesemia (ED), Diabetic Hyperglycemia (ED) Additional Instructions: You may take a magnesium supplement [id number]. Please take the Librium as previously scheduled. Please follow-up with your primary care provider within the next week or 2. Hemoglobin A1c and lipid panel is added onto the labs today. Overall your lab work is improving. Try to decrease your sugar intake. Decrease high fat. Follow up with primary care provider in 3-5 days. Return to ED sooner if any worsening or concerns. Increase oral fluids. Referrals: Abiel Clark [Primary Care Provider] - 1 week Discharge Data Discharge Date/Time-TO BE ENTERED AT DEPARTURE: 11/24/21 13:41 Medical Decision Making 41-year-old female presents to the ER chief complaint of feeling shaky and passing out near syncopal episodes. Patient denies any loss of consciousness, hitting her head. She also reports nausea no vomiting. She reports being able to tolerate p.o. fluids at home. She is complaining of some midepigastric abdominal pain. She does have a history of pancreatitis, alcoholic hepatitis, anxiety, withdrawal seizures. She reports her last alcohol intake was 2 weeks ago. She was sent home on Librium yesterday and last took a 25 mg Librium at 730 this morning. Patient was seen here yesterday and had extensive work-up for alcohol withdrawal was diagnosed with hypomagnesemia and dehydration. Patient was given magnesium supplement in the emergency department. Patient is slightly tachycardic with a rate of 112 upon arrival, she is slightly tremulous in her upper extremities. CIWA score 10 or less according to calc. Librium 25 mg p.o. ordered. Will attempt p.o. rehydration basic labs orders placed. CBC shows no leukocytosis, CMP shows a glucose of 234, was 273 yesterday, magnesium was 1.7 it was 1.6 yesterday, AST 79 ALT 133 and alk phos 252 which are trending down. Thiamine, multivitamin, ordered here in the department patient is tolerating p.o. fluids without difficulty. 1300: Patient re-evaluation, she states she feels much better, she has been tolerating PO without difficulty. Vitals are improved. Discussed home care. She is requesting Phenergan for nausea. Phenergan prescription written and sent to pharmacy on file. Medical Records Medical records reviewed: Yes I reviewed the patient's medical records. Medical records narrative: Patient had extensive work-up in the ER yesterday was discharged on 22 November 48 hours ago for alcohol withdrawal. Was placed on Librium 50 mg at that time. Diagnosed with fatty liver infiltration. Lab Data Lab results reviewed: Yes I reviewed the patient's lab results. HPI General Mode of arrival: ambulatory . Date/Time Provider Initiated Documentation: 11/24/21 11:21 . Limitations to Documentation: no limitations . Information obtained by: patient, family (), RN notes reviewed and old records reviewed . HPI Narrative: 41-year-old female presents to the ER chief complaint of feeling shaky and passing out near syncopal episodes. Patient denies any loss of consciousness, hitting her head. She also reports nausea no vomiting. She reports being able to tolerate p.o. fluids at home. She is complaining of some midepigastric abdominal pain. She does have a history of pancreatitis, alcoholic hepatitis, anxiety, withdrawal seizures. She reports her last alcohol intake was 2 weeks ago. She was sent home on Librium yesterday and last took a 25 mg Librium at 730 this morning. Patient was seen here yesterday and had extensive work-up for alcohol withdrawal was diagnosed with hypomagnesemia and dehydration. Patient was given magnesium supplement in the emergency department. Related Data Home Medications Medication Instructions Recorded Confirmed chlordiazepoxide HCl 25 mg capsule See Rx Instructions .Route 11/22/21 11/24/21 .COMPLEX #15 caps multivitamin (Daily Multi-Vitamin 1 tab PO DAILY #30 tabs 11/22/21 11/24/21 tablet) thiamine mononitrate (vit B1) 100 100 mg PO QAM #30 tabs 11/22/21 11/24/21 mg tablet (Vitamin B-1 (mononitrate)) pantoprazole 20 mg tablet,delayed 20 mg PO BID 15 days #30 tabs 11/23/21 11/24/21 release (Protonix) promethazine 12.5 mg tablet 12.5 mg PO TID PRN nausea and 11/24/21 vomiting #14 tabs Previous Rx's Medication Instructions Recorded chlordiazepoxide HCl 25 mg capsule See Rx Instructions .Route 11/22/21 .COMPLEX #15 caps multivitamin (Daily Multi-Vitamin 1 tab PO DAILY #30 tabs 11/22/21 tablet) thiamine mononitrate (vit B1) 100 100 mg PO QAM #30 tabs 11/22/21 mg tablet (Vitamin B-1 (mononitrate)) pantoprazole 20 mg tablet,delayed 20 mg PO BID 15 days #30 tabs 11/23/21 release (Protonix) promethazine 12.5 mg tablet 12.5 mg PO TID PRN nausea and 11/24/21 vomiting #14 tabs Allergies Allergy/AdvReac Type Severity Reaction Status Date / Time amoxicillin Allergy Unverified 11/24/21 11:27 codeine Allergy Unverified 11/24/21 11:27 General Stated Complaint: GenMedical JAMEEL: 3 Review of Systems All systems reviewed & are unremarkable except as noted in HPI and below Constitutional Constitutional: Reports daytime sleepiness, Reports headache(s) and Reports weakness ENT Ears, Nose, Mouth, and Throat: Reports headache(s) and Reports disequilibrium Cardiovascular Cardiovascular: Reports chest pain at rest, Reports rapid heart rate and Denies dyspnea Respiratory Respiratory: Denies cough and Denies dyspnea Gastrointestinal Gastrointestinal: Reports abdominal pain, Denies diarrhea, Reports nausea and Denies vomiting Neurologic Neurologic: Reports as per HPI (Near Syncope), Reports headache(s), Reports tremor(s) (Mild upper extremities), Reports disequilibrium and Reports weakness Psychiatric Psychiatric: Reports anxiety, Denies hallucinations, Denies tactile hallucinations, Denies homicidal ideation and Denies suicidal ideation PFSH All Active Problems (Updated 11/24/21 @ 13:12 by Sumi Naranjo) Transaminitis (Acute) Tachycardia (Acute) Hypomagnesemia (Acute) Dehydration (Acute) Condyloma acuminata (Acute) Thrombocytopenia (Chronic) COVID (Acute) Hyperglycemia (Acute) Productive cough (Acute) Ambulatory dysfunction (Acute) Urinary incontinence (Acute) Smoker (Acute) Thrombocytopenia (Chronic) Alcoholic hepatitis (Acute) Tachycardia (Acute) Nausea & vomiting (Acute) Healthcare-associated pneumonia (Acute) Alcohol withdrawal (Acute) Altered mental state (Acute) Acute hyponatremia (Acute) Pancreatic pseudocyst (Chronic) Chronic pancreatitis (Chronic) DVT prophylaxis (Acute) Anxiety (Chronic) History of DVT (deep vein thrombosis) (Chronic) Alcohol abuse (Chronic) Acute pancreatitis (Acute) Medical History (Updated 11/24/21 @ 13:12 by Sumi Naranjo) DVT (deep venous thrombosis) Pancreatitis Seizure disorder Surgical History H/O chest tube placement H/O esophagogastroduodenoscopy H/O LEEP Family History Other Adopted Social History (Updated 11/20/21 @ 13:25 by Kisha Phelps MD) Smoking/Tobacco Use Status: Current every day Tobacco Type: cigarettes Tobacco: How many years used: 21 Smoking risk assessment performed?: Yes Alcohol Intake: former Drug use: Occasionally Substance use type: marijuana Details: patient states that she has 6 beers or more a day, last drink was 7pm last night Household members: spouse, children and other Details: H. Children 13yo, 16yo. Both attend . Number of Children: 2 In current or past relationships, have you been: made to feel afraid Do you feel safe at home: Yes Do you feel safe in your relationship?: Yes Additional Social history: Patient is and has 2 children ages 13 and 14. Moved here from [place] approximately 2 years ago, now lives in [place]. 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 Reports ongoing alcohol use. 30+-pack-year history of smoking. Pt feels unsafe living with her . Pt States that she feels like he slips her Stuff in her drinks. Female Reproductive History Menstrual Duration of menses: other (menses ever 2-3mo) control method: progestin IUCD History History 2 Para 2 Hx # Term Pregnancies Multiple births Hx # Pregnancies Ectopic pregnancies AB induced Hx Number of Living Children 2 AB spontaneous Exam Const General: frail appearing Nutritional Appearance: thin and underweight Orientation: alert, awake and oriented x3 Limitations: behavioral limitations (Has eyes closed but answers questions and is easily aroused to verbal stimu) Eyes EOM: No nystagmus Chest Chest: normal inspection of the chest Resp Effort & Inspection: normal respiratory effort, able to speak in complete sentences, no audible wheezes and no cough Auscultation: clear to auscultation bilaterally Cardio Palpation: normal PMI Rate: tachycardic (112) Rhythm: regular rhythm Heart Sounds: S1 normal and S2 normal Pulses: radial pulses present GI Palpation: firm, guarding and tender in the LUQ Skin General skin exam: other (Multiple puncture wounds and contusions from previous visits) Lesions: no lesions Rashes: no rashes Neuro General: patient awake, patient oriented x3, tone normal, moves all extremities, no focal motor deficits, CN's II-XI intact bilaterally, normal sensation to monofilament and deep tendon reflexes 2+ bilaterally Cranial Nerves: CN's II-XI intact bilaterally, facial strength normal, tongue midline, gag reflex normal, able to rotate head bilaterally, able to elevate shoulders bilaterally and no nystagmus Speech: speech normal Motor: muscle tone normal throughout, tremor bilateral upper extremity intention tremor and no pronator drift noted Sensory Exam: no sensory deficits noted Coordination: Does not sway with eyes open Psych Appearance: well kempt Speech and Movement: speech and movement normal Course Vital Signs Vital signs: Vital Signs Temperature 36.5 C 11/24/21 11:23 Pulse 112 H 11/24/21 11:23 Respiratory Rate 18 11/24/21 11:23 Blood Pressure 154/80 H 11/24/21 11:23 Pulse Oximetry 100 11/24/21 11:23 Temperature 36.5 C 11/24/21 11:23 Pulse 112 H 11/24/21 11:23 Respiratory Rate 18 11/24/21 11:23 Respiratory Effort 11/24/21 11:29 Respiratory Depth Normal 11/24/21 11:29 Respiratory Pattern Normal 11/24/21 11:29 Blood Pressure 154/80 H 11/24/21 11:23 Pulse Oximetry 100 11/24/21 11:23
[2021-11-24] MEDS: chlordiazePOXIDE 25 MG CAP PO (12:01)
[2021-11-24 12:25] LABS: Abs Immature Grans 0.11 10^3/uL (0.0-0.06); Absolute Basophil Count 0.03 10^3/uL (0.0-0.2); Absolute Eosinophil Count 0.02 10^3/uL (0.0-0.7); Absolute Lymphocyte Count 1.54 10^3/uL (1.2-3.4); Absolute Monocyte Count 0.72 10^3/uL (0.1-0.8); Absolute Neutrophil Count 5.14 10^3/uL (1.2-6.7); Basophils % 0.4; Eosinophils % 0.3; HGB 13.1 g/dL (11.2-15.7); Immature Grans % 1.5; Lymphocytes % 20.4; MCH 33.7 pg (27.0-33.0); MCHC 33.6 % (32.0-36.0); MCV 100 fL (80-95); MPV 10.4 fL (8.0-11.0); Monocytes % 9.5; Neutrophils % 67.9; Platelet Count 180 10^3/uL (130-400); RBC 3.89 10^6/uL (3.93-5.22); RDW 16.8 % (11.7-14.6); RDW-SD 62.2 fL; WBC 7.56 10^3/uL (4.4-10.8)
[2021-11-24] MEDS: Multivitamin TAB 1 TAB PO (12:28)
[2021-11-24] MEDS: Thiamine 100 MG TAB PO (12:28)
[2021-11-24 12:45] LABS: ALT 133 U/L (14-59); AST 79 U/L (15-37); Albumin 3.4 g/dL (3.4-5.0); Alkaline Phosphatase 252 U/L (46-116); Anion Gap 8.7 mmol/L (3-11); BUN 4 mg/dL (7-18); Bilirubin, Total 0.2 mg/dL (0.2-1.0); CO2 27.3 mmol/L (21.0-32.0); CREATININE 0.7 mg/dL (0.55-1.02); Calcium 9.2 mg/dL (8.5-10.1); Chloride 105 mmol/L (98-107); Glucose 234 mg/dL (74-106); Magnesium 1.7 mg/dL (1.8-2.4); Potassium 3.5 mmol/L (3.5-5.1); Sodium 141 mmol/L (136-145)
[2021-11-24 15:32] LABS: Hemoglobin A1C 6.2 % (<5.7)
[2021-11-24 15:39] LABS: ETHANOL BLOOD < 3.0 mg/dL (<10)
[2021-11-24 16:01] LABS: Calculated LDL 99 mg/dL (<100); Cholesterol 180 mg/dL (<200); HDL Cholesterol 58 mg/dL (40-60); Triglyceride 116 mg/dL (<150)
== END 2021-11-24 13:41 | disposition home or self-care (01) ==
PROVIDERS: Emergency Provider Registered Nurse Emergency; PCP Family Medicine
DX: F30.8 Other manic episodes (principal); R73.9 Hyperglycemia, unspecified
CPT/HCPCS: 36415; 80053; 80061; 99283; 80320; 83036; 83735; 84478; 85025